=== PATIENT | male | born 1940 | race Caucasian/White ===

== ENCOUNTER 2019-09-20 08:16 | Outpatient (CLI) | payer MEDICARE, OTHER, SELFPAY ==
--- NOTE | 2019-09-20 08:25 | XR_ITS ---
WS: [id number] KUB, 09/20/2019 Clinical Data: EXTRINSIC URETERAL OBSTRUCTION Comparison: C-arm fluoroscopy of the abdomen, 06/04/2019 Findings: No abnormal intraabdominal masses are seen. There is a calcification overlying the inferior portion o f the left kidney. There is no dilatated small bowel or evidence of obstruction. The left ureteral catheter appears to extend from the kidney to the bladder. There are clips on both sides of the pelvis from surgery. There is a moderate amount of fecal material throughout the colon. 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 XR/XR KUB 56489 Impression: 1. Left ureteral stent appears to be in good position. 2. Calcification overlying the inferior pole left kidney may represent renal ca lcification.
== END 2019-09-20 08:17 | disposition home or self-care (01) ==
LOC: RAD 08:23
PROVIDERS: Family Provider Family Medicine; PCP Urology; Visit Provider Urology
DX: N13.5 Crossing vessel and stricture of ureter without hydronephrosis (principal); Z96.0 Presence of urogenital implants
CPT/HCPCS: 74018

== ENCOUNTER 2019-09-24 12:03 | Day surgery (SDC) | payer MEDICARE, OTHER, SELFPAY ==
[2019-09-21 15:35] VITALS: BMI 32.6
[2019-09-24] VITALS (7 sets, daily range): BP systolic 124–157; BP diastolic 62–95; PULSE 64–86; RESP 13–20; TEMP 36.2–36.9; O2SAT 96–99
--- NOTE | 2019-09-24 | SCC_ITS ---
Procedure Done: Cystoscopy exchange left ureteral stent 16.1 seconds of fluoroscopic guidance, for a cumulative dose of 7.32 mGy, was provided to Dr. Lloyd by the radiology department. C-arm images of the abdomen were saved for the patient's permanent record. [facility]
--- NOTE | 2019-09-24 | SC_ITS ---
WS: [id number] C-arm fluoroscopy view of left side of the abdomen, 09/24/2019 Clinical Data: LEFT SIDED STENT EXCHANGE Comparison: KUB, 09/20/2019 Findings: The new ureteral stent is curled within the left renal pelvis. SC/C-arm [place] for Urology Impression: Satisfactory replacement of left ureteral stent.
[2019-09-24] MEDS: sodium chloride 0.9% 1,000 ML 30 ML IV (12:18)
--- NOTE | 2019-09-24 12:24 | ANES.PREANE2 ---
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 Exam: Pre-Anes Outpt Exam: alert, oriented x 3, clear to auscultation bilaterally and regular rate & rhythm Airway: Submandibular: WNL Cervical ROM: WNL MP: 2 Dentition: False CV/HEM: Comments: 2 blocks without angina/LAMAR : Comments: prostate CA/ s/p stent s/p sx/chemo/XRT Metabolic: Metabolic: DM Comments: rx'd x 2y, normally 115-150 Musc/skel: Musc/skel: Lower Back Pain Anesthetic Plan: ASA status: 3 Anesthesia: General Meds/Allergies Current Medications: Current Medications Generic Name Dose Route Start Last Admin Trade Name Demarioq PRN Reason Stop Dose Admin Sodium Chloride 1,000 mls @ 30 ml s/hr 09/24/19 12:15 09/24/19 12:18 Sodium Chloride 0.9% IV 09/25/19 12:14 30 mls/hr .Q24H EBER Administration PFSH Anesthesia PFSH: Social History Smoking and tobacco status: smoker, details unknown smokeless tobacco Alcohol intake: never Adopted: No Caregiver/support person: No Lives independently: No Household members: spouse Marital status: Current occupational status: retired History of recent travel: No Data Anesthesia Cardiac Studies: No Data to Display
[2019-09-24 12:53] LABS: Glucose Point of Care 101 mg/dL (70-110)
--- NOTE | 2019-09-24 13:22 | PM.HPUD ---
H&P update H&P Update: DATE OF SURGERY/PROCEDURE: 09/24/19 DATE H&P PERFORMED: 09/20/19 CHANGES TO PREVIOUS DOCUMENTATION: None PREOP DIAGNOSIS: Chronic left ureteral stent PLANNED PROCEDURE: Operation Date: 09/24/19 13:30 Proposed Procedures p Cystoscopy 06001 N13.5(Not Applicable) - Jasper Lloyd MD s Ureteral Stent Exchange(Left) - Jasper Llody MD Full H&P Medications/Allergies: Current Medications: Current Medications Generic Name Dose Route Start Last Admin Trade Name Freq PRN Reason Stop Dose Admin Sodium Chloride 1,000 mls @ 30 ml s/hr 09/24/19 12:15 09/24/19 12:18 Sodium Chloride 0.9% IV 09/25/19 12:14 30 mls/hr .Q24H EBER Administration Perinent History: Medical/Surgical History: Medical History (Updated 09/20/19 @ 11:51 by Jasper Lloyd MD) Calcium stone of bladder Chronic cystitis Extrinsic ureteral obstruction Male stress incontinence Prostate cancer Family History: Family History (Updated 09/18/19 @ 08:27 by LAURY Samayoa) Mother , in her 70's CAD (coronary artery disease) Father , in his 80's No problems noted. Social History: Social History Smoking and tobacco status: smoker, details unknown smokeless tobacco Alcohol intake: never Adopted: No Caregiver/support person: No Lives independently: No Household members: spouse Marital status: Current occupational status: retired History of recent travel: No
--- NOTE | 2019-09-24 13:30 | PM.OP ---
Operative Report Date of procedure: September 24, 2019 Pre-op Diagnosis: Chronic left ureteral stent Post-op diagnosis: same Procedure Done: Cystoscopy exchange left ureteral stent Implants: Left ureteral stent: 8 Citizen [place] by 32 cm multilength double-pigtail without string Specimens removed/disposition: Left ureteral stent disposed Pathology: none sent Surgeon: Prema Anesthesia: General Estimated blood loss: Minimal Urine output: Not measured Complications: None Condition: stable Disposition: PACU Brief History: Mr. 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 The tumor invaded the right ureteral orifice and cause obstruction and he has been maintained for a significant period of time with an indwelling ureteral stent changed on a regular basis in addition to his systemic therapy. Back now for stent change. Procedure: After routine preoperative evaluation examination and obtaining of informed consent he was taken to the operating suite on 09/24/2019 where general anesthesia was administered without difficulty after appropriate timeout was performed, SCDs confirmed to be functioning, preoperative antibiotics administered, and beta-kofi protocol confirmed. Prepped and draped in usual sterile fashion in dorsolithotomy position pain careful attention to avoiding pressure points. 21 Citizen [place] cystoscope with 30 degree lens introduced into urethral meatus and advanced into the bladder under videoscopy. Bladder was systematically examined with some encrustation noted on the stent, chronic inflammatory changes of the bladder wall where the stent resided, but no other significant changes from previous exams. Flexible tip guidewire was advanced along the left ureteral stent up the left ureter and then the stent was grasped with grasping forceps and withdrawn under fluoroscopic monitoring. Stent was replaced with an 8 Citizen [place] by 32 cm multilength double-pigtail stent easily passed over the guidewire through the cystoscope into appropriate position as confirmed via fluoroscopy and cystoscopy. Bladder was drained and the procedure was completed. PLANS: 1. Follow-up in 3 months with KUB. Sooner for increasing symptoms.
--- NOTE | 2019-09-24 14:07 | SUR.PHASEI ---
1405- RECEIVED PATIENT IN PACU FROM OR [facility]IA [place]. RESP ARE EVEN AND NONLABORED. SIMPLE MASK APPLIED AT 6LPM, SAT 99%, ORAL AIRWAY IN PLACE. HE IS AROUSABLE BUT LETHARGIC. NO S/S PAIN OR NAUSEA 1408- ORAL AIRWAY OUT. SIMPLE MASK IN PLACE AT 6LPM, SAT 99%
== END 2019-09-24 15:00 | disposition home or self-care (01) ==
PROVIDERS: Family Provider Family Medicine; PCP Nurse Practitioner; Visit Provider Urology
PROC: 0TJB8ZZ Inspection of Bladder, Via Natural or Artificial Opening Endoscopic (ICD-10-PCS; CPT 52000; principal; 2019-09-24 13:10)
PROC: (CPT 52332; 2019-09-24 13:10)
DX: N20.1 Calculus of ureter (principal); Z82.49 Family history of ischemic heart disease and other diseases of the circulatory system; F17.290 Nicotine dependence, other tobacco product, uncomplicated; C61 Malignant neoplasm of prostate
CPT/HCPCS: 52332; 12345; 36416; 76000; 82962; C2625; J1580; J2001; J2405; J2704; J3010; J3490; J7030

== ENCOUNTER 2019-09-26 10:19 | Outpatient (CLI) | payer MEDICARE, OTHER, SELFPAY ==
[2019-09-26 11:18] LABS: Prostate Specific Antigen 3.31 ng/mL (0-4)
== END 2019-09-26 10:20 | disposition home or self-care (01) ==
LOC: ONCMED 10:19
PROVIDERS: Family Provider Family Medicine; PCP Nurse Practitioner; Visit Provider Internal Medicine Hematology & Oncology
DX: C61 Malignant neoplasm of prostate (principal)
CPT/HCPCS: 36415; 84153

== ENCOUNTER 2019-10-12 10:11 | Outpatient (CLI) | payer MEDICARE, OTHER, SELFPAY ==
[2019-10-12 11:23] LABS: Prostate Specific Antigen 3.61 ng/mL (0-4)
[2019-10-12 11:34] LABS: Alanine Aminotransferase 14 U/L (0-41); Albumin Level 4.3 g/dL (3.5-5.2); Alkaline Phosphatase 68 IU/L (40-130); Anion Gap 19.9 (5-19); Aspartate Amino Transferase 13 U/L (0-40); Blood Urea Nitrogen 22 mg/dL (8-23); Calcium 10.3 mg/dL (8.5-10.5); Carbon Dioxide 24 mmol/L (22-29); Chloride 99 mmol/L (98-107); Globulin 3.7 g/dL (1.3-4.6); Glucose 136 mg/dL (65-115); Potassium 3.9 mmol/L (3.5-5.1); Sodium 139 mmol/L (136-145); Total Bilirubin 0.3 mg/dL (0.15-1.2)
== END 2019-10-12 10:12 | disposition home or self-care (01) ==
LOC: ONCMED 10:12
PROVIDERS: Family Provider Family Medicine; PCP Nurse Practitioner; Visit Provider Internal Medicine Hematology & Oncology
DX: C61 Malignant neoplasm of prostate (principal)
CPT/HCPCS: 36415; 80053; 84153

== ENCOUNTER 2019-10-17 09:56 | Outpatient (CLI) | payer MEDICARE, OTHER, SELFPAY ==
[2019-10-17] MEDS: lidocaine 1% INJ 20 mL INJECTION (11:05)
[2019-10-17] MEDS: goserelin acetate 10.8 mg Implant IM (11:16)
--- NOTE | 2019-10-17 13:17 | ONC FU_ITS ---
Dr. Alcazar follow up note Patient: Alex Kauffman Unit #: [id number]: 1940 Dicatated By: Tom Alcazar M.D.Date of Visit:Oct 17, 2019 Onc Med Follow-up/Prog Note History of Present Illness: Mr. Kauffman is a 78-year-old gentleman with long-standing history of prostate cancer. Initially, he was diagnosed with prostate cancer in May 2000. At that time, his PSA was 9 and a biopsy showed 2+ 2/3+4/3+3 with the largest volume equal 3+4. Underwent radical retropubic prostatectomy in June 2000. He was followed with PSA postoperatively and during follow-up it was noted his PSA was increasing but slowly. Finally in 2010 it was felt he needed further treatment. He was treated with radiation therapy which he completed in March 2011. It showed good response with PSA down to 0.05. During follow-up in November 2012, his PSA gone up to 0.21; in May 2013 up to 0.35 and in November 2013 it was 0.93. In February 2015, he underwent cystoscopic examination found to have local recurrence. It was resected and confirmed to be poorly differentiated prostate cancer. At that time he was started on combined androgen blockade postop. His treatment was complicated by recurrent hematuria and burning micturition. Follow-up lab showed a gradual increase in his PSA level and from 07/06/2017 it was 2.5 earlier while on combined androgen blockade. On 12/21/2017, he underwent cystoscopy with transurethral resection of a bladder lesion, cystourethroscopy with placement of ureteral stent on left side and dilation of urethra. 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 Mr Kauffman has had persistent urine tract infection and recently finished course of Levaquin. Repeat urinalysis on 02/16/2018 showed persistent urine tract infection: leukoesterase positive and persistent RBCs and WBCs on microscopic evaluation. Mr Kauffman reported he did notice pus drops every time after he finish his urination. His case was discussed with Dr. Lloyd, urologist, and he was referred for possible cystoscopy to rule out postsurgical abscess or other source of infection- before we started chemotherapy. Mr Kauffman reported that he has seen Dr. Lloyd. Dr Lloyd replaced the urinary stent and did notice lots of urinary debris. Mr Kauffman was started on long-term antibiotics with Hiprex 1 g by mouth daily. He began his first dose of docetaxel on 03/14/2018. He was not given Neulasta as he did not have insurance approval at the time of chemotherapy. He did have significant neutropenia on day 8 with an ANC of 600. He did not have symptoms and gradually recovered. He did qualify for Neulasta administration with cycle 2 and Concluded his chemotherapy e.g. 6 doses on 06/27/2018 Went to [facility] on 09/07/2018 and as per patient his patient was started on Zytiga/prednisone for one year in addition to Zoladex every 3 months as scans done at [facility] showed excellent response to chemotherapy but persistent lung nodule and pelvic lesion and his PSA done there was around 1. We will obtain follow-up note from [facility] and review. Patient denies any fever chills denies any nausea or vomiting denies any pelvic pain, denies any dysuria or hematuria. On 09/21/2018 patient had left ureteral stent replacement. Patient went to [facility] for follow-up on 12/25/2018 and had choline C 11 scan done, when compared with one from 09/07/2018, showed increased choline uptake is again seen in the prostatectomy bed on the left and involving the posterior bladder base is essentially unchanged from the previous scan. The small lymph nodes with choline uptake seen on the previous scan are unchanged. The pulmonary infiltrate have decreased. No new sites of abnormal choline uptake are noted Tolerating ADT with Zoladex and Zytiga/prednisone well Patient went to [facility] for follow-up on 06/29/2019. He underwent PET/CT choline which showed likely tumor at the left of urethral vesicle junction has SUV of 4.5 compared to 3.4 on 12/25/2018. Nonspecific activity to the right of urethrovesical junction has SUV of 1.8 compared to 2.1 previously. Likely tumor involving left sided urinary bladder including the left ureterovesical junction has SUV of 6.2 compared to 6.6 previously. Likely metastatic activity in the proximal right external iliac lymph node has SUV of 2.6 versus 2.2 previously. Nonspecific activity along the right common iliac vessels and adjacent to lumbar degenerative changes as current SUV of 2.9 versus 2.1 previously and his PSA was 2.[address] Lewis recommended continue with Zoladex but discontinue Zytiga and taper off prednisone and initiate xtandi and repeat his PSA in 3 months and follow-up at [facility] in [address] PET scan and PSA . As per patient he was told if his disease continued to progress the next option would be chemotherapy. As far as his left pelvic pain is concern, which is under control and left nephrostomy tube was suggested rather than continuing with ureteral stent exchanges every couple of months. Came for follow-up, denies any specific complaints, no fever or chills, no nausea or vomiting, no hematuria, recently underwent left ureteral stent replacement and Dr. Lloyd is managing it. Patient said his pelvic pain is under control with current pain medication. And complaining of off and on night sweats otherwise tolerating ADT with Zoladex well and also tolerating xtandi well Medications: AZO Yeast Plus 1 Tablet Oral daily PRN, Hiprex 1 Tablet (of 1 G) Oral b.i.d., MetFORMIN HCl 1 (500 mg) Tablet Oral b.i.d., oxyCODONE-Acetaminophen 1 Tablet (of 5-325 mg) Oral q 4 to 6 hours PRN, predniSONE 1 Tablet (of 5 mg) Oral b.i.d., Vitamin C 1 Tablet (of 1 G) Oral daily, Zytiga 2 Tablet (of 500 mg) Oral daily Allergies: Cipro, Penicillins, and Sulfa Antibiotics. Review of Systems: Review of Systems is not available for this patient. Vital Signs: Performed on Oct 17, 2019 10:20 Height - 67.00 in Weight - 221.8 lbs (LOW) BSA - 2.11 sq.m BMI - 34.74 (HIGH) Temperature - 97.4 F (LOW) Pulse - 75 /min Respiration - 20 /min BP - 136/78 mm(hg) O2 Sat - 96 % Pain - 0 Performance Status: 0 - Fully active, able to carry on all predisease activities without restrictions. (ECOG) Physical Examination: ENMT - No oral exudates, ulcers, masses, thrush or mucositis. Oropharynx clear. Tongue normal, Respiratory - Lungs are clear to auscultation without rhonchi or wheezing, Cardiovascular - Regular rate and rhythm of heart without murmurs, gallops or rubs, Abdomen - Non-tender, non-distended, Good bowel sounds. No guarding or rebound tenderness. No pulsatile masses, Extremities - no edema. Lab/Imaging: Test performed on Oct 12, 2019 10:20 Sodium 139 mmol/L Potassium 3.9 mmol/L Chloride 99 mmol/L CO2 24 mmol/L Anion Gap 19.9 BUN 22 mg/dL Creatinine 0.9 mg/dL Cr Clearance (Est) 94.7900 mL/min Glucose 136 mg/dL Calcium 10.3 mg/dL Protein, Total 8.0 g/dL Albumin 4.3 g/dL Globulin 3.7 g/dL Bilirubin, Total 0.3 mg/dL ALT (SGPT) 14 U/L AST (SGOT) 13 U/L Alkaline Phosphatase 68 IU/L PSA 3.61 ng/mL Test performed on Apr 30, 2019 09:22 Bilirubin, Direct 0.2 mg/dL Impression: Recurrent prostate cancer status post cystoscopy and excision in February 2015 followed by combined androgen blockade with Zoladex and Casodex. Now with gradual increasing PSA , While on combined androgen blockade Initially he was diagnosed prostate cancer in 1999- at that time he underwent retropubic radical prostatectomy. Status post radiation therapy in 2010 for increasing PSA and lymphadenopathy. Hematuria/dysuria since February 2015. CT scan of abdomen pelvis done on 03/02/2018 showed soft tissue mass measuring 2.2 cm x 3.2 x 2.9 in the expected location of the prostate inseparable from the urinary bladder floor urinary bladder wall is diffusely thickened and there is a soft tissue attenuation between the soft tissue mass in the anterior infra levator rectal wall, rectal lesion not excluded Seen by Dr. Ewdards on 10/24/2017 and his impression was changes in the rectum are probably due to prostate invasion rather than primary rectal lesion. 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 Mr Kauffman was seen by Dr Lloyd for persistent UTI symptoms post op and was placed on education and training manager antibiotics. His symptoms resolved and he began recommended chemotherapy with docetaxel on 03/14/2018. Mr. Kauffman has tolerated the chemotherapy relatively well. He did have chemotherapy-induced neutropenia on day 8 of cycle 1. His initial ANC at time of treatment on 03/14/2018 was 13,300 on day 8 his ANC was 600[address] PET scan done on 05/06/2018 showed no evidence for recurrent or residual malignancy., Tiny scattered pelvic nodes are radiographically benign and FDG negative, no findings to indicate osseous metastatic disease and left-sided hydronephrosis is present and a ureteral catheter is in place. PSA checked on 05/15/2018 showed 1.81 compared to 6.49 on 03/14/2018 when chemotherapy with Taxotere was started And concluded his chemotherapy with Taxotere e.g. 6 doses on 06/27/2018 Status post left ureteral stent placement on 05/22/2018 Again replaced on 09/21/2018 Went to [facility] on 09/07/2018,Choline C 11 scan done on 09/07/2018 showed large choline avid recurrence in the prostatectomy bed involving the posterior bladder base has improved since prior exam, however suspicious new small focus of choline avid disease along the right posterior bladder wall. New choline avid node metastatic disease including a right supraclavicular node. And increasing pulmonary infiltrate and/or atelectasis in the posterior lower lobes with reactive choline activity. so he was started on Zytiga/prednisone for one year along with an 3 monthly Zoladex. Went to [facility] on 12/25/2018 and had choline C 11 scan done on same date showed when compared with choline scan done on 09/07/2018, increased choline uptake is seen again in the prostatectomy bed on the left and involving the posterior bladder base is essentially unchanged from the previous scan. The small lymph nodes with choline uptake seen on the previous scans are unchanged the pulmonary infiltrates have decreased. No new sites of abnormal choline uptake are noted. Plan: Discussed with patient regarding CMP within normal limit PSA 3.61 compared to 3.31 on 09/26/2019 and 2.50 on 07/11/2019 Clinically, patient doing well with no signs symptoms just to of recurrence of disease but his follow-up PSA is gradually increasing patient started on xtandi in July 2019 and last dose of Zoladex was given on 07/17/2019. At this point we'll proceed with next dose of Zoladex 10.8 mg today and then patient return to clinic in 3 months with CBC CMP and PSA patient has return appointment with [facility], and we will follow their suggestions/recommendations regarding progressive PSA. Patient his we will confirm follow-up appointment with [facility]. And also give him prescription for Percocet, he will take 1-2 tablets 4-6 hours as needed for pelvic pain probably due to ureteral stent. Signed By: Tom Alcazar M.D. <<Signature on File>>
== END 2019-10-17 09:57 | disposition home or self-care (01) ==
LOC: ONCMED 09:57
PROVIDERS: Family Provider Family Medicine; PCP Nurse Practitioner; Visit Provider Internal Medicine Hematology & Oncology
DX: C61 Malignant neoplasm of prostate (principal); R97.21 Rising PSA following treatment for malignant neoplasm of prostate; Z79.899 Other long term (current) drug therapy; Z79.818 Long term (current) use of other agents affecting estrogen receptors and estrogen levels; Z79.891 Long term (current) use of opiate analgesic; Z79.52 Long term (current) use of systemic steroids; Z87.440 Personal history of urinary (tract) infections; Z92.21 Personal history of antineoplastic chemotherapy; Z96.0 Presence of urogenital implants; Z92.3 Personal history of irradiation; Z90.79 Acquired absence of other genital organ(s)
CPT/HCPCS: 96372; 96402; 99214; J2001; J9202

== ENCOUNTER 2019-12-04 09:25 | Outpatient (CLI) | payer MEDICARE, OTHER, SELFPAY | END 2019-12-04 09:26 | disposition home or self-care (01) | LOC: ONCMED 09:26 | PROVIDERS: Family Provider Family Medicine; PCP Nurse Practitioner; Visit Provider Internal Medicine Hematology & Oncology | DX: Z01.89 Encounter for other specified special examinations (principal) | CPT/HCPCS: 36415 ==

== ENCOUNTER 2019-12-20 08:24 | Outpatient (CLI) | payer MEDICARE, OTHER, SELFPAY ==
--- NOTE | 2019-12-20 08:30 | XR_ITS ---
WS: [id number] XR KUB [id number] REASON FOR EXAM: ureteral obstruction FINDINGS: A stent is well placed in the left kidney extends down to the bladder. Adjacent to the sten t is a prominent calcified densities suggesting a ureteral calculus. There is degenerate changes throughout the lumbar spine. XR/XR KUB 99117 IMPRESSION: Left ureteral stent appears to be in good position. The calcified density in the left kidney similar to the previous exam.
== END 2019-12-20 08:25 | disposition home or self-care (01) ==
LOC: RAD 08:29
PROVIDERS: Family Provider Family Medicine; PCP Nurse Practitioner; Visit Provider Urology
DX: N13.5 Crossing vessel and stricture of ureter without hydronephrosis (principal); Z96.0 Presence of urogenital implants
CPT/HCPCS: 74018

== ENCOUNTER 2020-01-04 09:28 | Outpatient (CLI) | payer MEDICARE, OTHER, SELFPAY ==
--- NOTE | 2020-01-04 09:15 | XRR_ITS ---
PROCEDURE INFORMATION: Exam: XR Abdomen, 1 View Exam date and time: 01/04/2020 9:31 AM Age: 79 years old Clinical indication: Condition or disease; Kidney or ureter condition; Calculus (stone) in kidney; Prior surgery; Surgery type: Stent; Additional info: Ureteral obstruction f/u TECHNIQUE: Imaging protocol: XR of the abdomen. Views: Frontal supine view of the abdomen. 1 View. COMPARISON: CR XR KUB [id number] 12/20/2019 8:43 AM FINDINGS: Gastrointestinal tract: bowel gas pattern is nonspecific. Air filled large bowel including distal rectal gas. Scattered loops of air filled small bowel none of which are dilated. Large amount of stool throughout the large bowel. Intraperitoneal space: Extensive operative changes in the pelvis. Organs: Double-J ureteric stent on the left with the proximal pigtail formed within the renal pelvis and the distal pigtail within the urinary bladder. 6 mm calculus lower pole left kidney Bones/joints: Degenerative changes within the hips: Moderate Degenerative changes within the visualized portions of the caudal aspect of the lumbar spine. Moderate to severe XR/XR KUB [id number] IMPRESSION: . Bowel gas pattern is nonspecific. Air filled large bowel including distal rectal gas. Large amount of stool throughout the large bowel.
== END 2020-01-04 09:29 | disposition home or self-care (01) ==
LOC: RAD 09:29
PROVIDERS: PCP Nurse Practitioner; Visit Provider Urology
DX: N13.5 Crossing vessel and stricture of ureter without hydronephrosis (principal)
CPT/HCPCS: 74018

== ENCOUNTER 2020-01-10 12:22 | Day surgery (SDC) | payer MEDICARE, OTHER, SELFPAY ==
[2020-01-09 13:09] VITALS: BMI 32.8
[2020-01-10] VITALS (7 sets, daily range): BP systolic 136–174; BP diastolic 76–87; PULSE 53–77; RESP 16–20; TEMP 36.4–36.7; O2SAT 94–97
--- NOTE | 2020-01-10 | SCC_ITS ---
Procedure Done: Cystoscopy, exchange left ureteral stent 36.8 seconds of fluoroscopic guidance, for a cumulative dose of 14.72 mGy, was provided to Dr. Lloyd by the radiology department. C-arm images of the abdomen were saved for the patient's permanent record. [facility]
[2020-01-10] MEDS: sodium chloride 0.9% 1,000 ML 30 ML IV (13:06)
[2020-01-10 13:15] LABS: Glucose Point of Care 111 mg/dL (70-110)
--- NOTE | 2020-01-10 14:50 | ANES.PREANE2 ---
Pre-Anesthetic Assessment Pre-Anesthetic Assessment: Height/Weight: Height 1.73 m Weight 97.976 kg Temp Pulse Resp BP Pulse Ox 97.5 F L 77 18 174/87 97 01/10/20 12:59 01/10/20 12:59 01/10/20 12:59 01/10/20 12:59 01/10/20 12:59 Preop Diagnosis: chronic ureteral stent Proposed Procedure: Operation Date: 01/10/20 15:10 Proposed Procedures p Cystoscopy 67855 N13.5(Not Applicable) - Jasper Lloyd MD s Ureteral Stent Exchange(Left) - Jasper Lloyd MD Last intake: Intake Last Liquid Date 01/10/20 Last Liquid Time 07:30 Last Solid Date 01/10/20 Last Solid Time 20:30 Social: Social History: Tobacco (quit 1999) and No alcohol Exam: Pre-Anes Outpt Exam: alert, oriented x 3, clear to auscultation bilaterally and regular rate & rhythm Airway: Submandibular: WNL Cervical ROM: WNL MP: 1 Dentition: False (upper) and Other (poor) History/ROS: No significant history except as noted Pulmonary: Pulmonary: LAMAR CV/HEM: CV/HEM: None reported : Comments: prostrate CA Hepatic: Hepatic: None reported GI: GI: None reported Metabolic: Metabolic: DM Musc/skel: Musc/skel: None reported Neuropsych: Neuropsych: None reported Anesthetic Plan: ASA status: 3 Anesthesia: Anesthesia Evaluation, General and MAC Risk of > 500 ml blood loss (7ml/kg in children): No Meds/Allergies Current Medications: Current Medications Generic Name Dose Route Start Last Admin Trade Name Freq PRN Reason Stop Dose Admin Sodium Chloride 1,000 mls @ 30 ml s/hr 01/10/20 12:45 01/10/20 13:06 Sodium Chloride 0.9% IV 01/11/20 12:44 30 mls/hr .Q24H EBER Administration PFSH Anesthesia PFSH: Medical History Chronic cystitis Extrinsic ureteral obstruction Male stress incontinence Prostate cancer Surgical History History of radical retropubic prostatectomy Hx of transurethral destruction of bladder lesion S/P right knee surgery Status post placement of ureteral stent Family History Mother , in her 70's CAD (coronary artery disease) Father , in his 80's No problems noted. Social History Smoking and tobacco status: smoker, details unknown smokeless tobacco Alcohol intake: never Adopted: No Caregiver/support person: No Lives independently: No Household members: spouse Marital status: Current occupational status: retired History of recent travel: No Data Anesthesia Other Labs: Laboratory Results - last 48 hr 01/10/20 13:12 POC Glucose 111 Cardiac Studies: No Data to Display
--- NOTE | 2020-01-10 15:37 | SC_ITS ---
WS: [id number] C-ARM RADIOGRAPHS ABDOMEN; 2 IMAGES HISTORY: stent placement COMPARISON: None available. Intraoperative imaging during LEFT ureteral stent placement. SC/C-arm [place] for Urology IMPRESSION: Intraoperative imaging for LEFT ureteral stent placement.
--- NOTE | 2020-01-10 15:52 | P.OP_ITS ---
Operative Report Date of procedure: January 10, 2020 Pre-op Diagnosis: chronic LEFT ureteral stent Post-op diagnosis: same Procedure Done: Cystoscopy, exchange left ureteral stent Pathology: none sent Surgeon: Prema Anesthesia: General Estimated blood loss: Minimal Urine output: Not measured Complications: None Condition: stable Disposition: PACU Brief History: Mr. 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 Procedure: After routine preoperative evaluation examination and obtaining of informed consent he was taken to the operating suite on 01/10/2020 where general anesthesia was administered without difficulty after appropriate timeout was performed, SCDs confirmed to be functioning, preoperative antibiotics administered, beta-[id number] protocol confirmed. Prepped and draped in the usual sterile fashion in dorsolithotomy position pain careful attention to avoiding pressure points. 21 Belgian cystoscope with 30 degree lens was introduced to urethral meatus and advanced into the bladder under videoscopy. The bladder was systematically examined. In general there appeared to be more abnormal tissue around the ureteral orifice and bladder neck than previously seen. This may be promotional representative of persistent local regrowth. This tissue was more friable. A guidewire was advanced up the left ureter next to the stent and the stent was removed after confirmation of the wire curling in the area of the renal pelvis. An 8 Belgian by 26 cm stent was then passed without difficulty The bladder was drained and the procedure completed. Tolerated the procedure well without complications and was awakened in the operating room and returned to the recovery in stable condition. PLANS: Follow-up in about 3 months for scheduling of stent change. Consider percutaneous tube diversion of urine if further progression of local regrowth.
== END 2020-01-10 17:31 | disposition home or self-care (01) ==
PROVIDERS: PCP Nurse Practitioner; Visit Provider Urology
PROC: 0TJB8ZZ Inspection of Bladder, Via Natural or Artificial Opening Endoscopic (ICD-10-PCS; CPT 52000; principal; 2020-01-10 15:10)
PROC: (CPT 52332; 2020-01-10 15:10)
DX: Z46.6 Encounter for fitting and adjustment of urinary device (principal); Z85.46 Personal history of malignant neoplasm of prostate; E11.9 Type 2 diabetes mellitus without complications
CPT/HCPCS: 52332; 12345; 36416; 76000; 82962; C2625; J1580; J2001; J2405; J2704; J3010; J3490; J7030

== ENCOUNTER 2020-01-11 20:33 | Inpatient (IN) | payer MEDICARE, OTHER, SELFPAY ==
[2020-01-11 20:43] VITALS: BP 139/80; PULSE 100; RESP 24; TEMP 38.1; O2SAT 92; BMI 34.4
--- NOTE | 2020-01-11 20:48 | XRR_ITS ---
PROCEDURE INFORMATION: Exam: XR Chest, 1 View Exam date and time: 01/11/2020 9:19 PM Age: 79 years old Clinical indication: Patient HX: Kidney stent replaced the day before, now has fever TECHNIQUE: Imaging protocol: XR of the chest Views: 1 view. COMPARISON: CR Chest 1 [place] [id number] 01/29/2019 10:10 AM FINDINGS: Lungs: Unremarkable. No consolidation. Pleural space: Unremarkable. No pleural effusion. No pneumothorax. Heart/Mediastinum: Stable heart size. Vasculature: Calcified thoracic aorta. Bones/joints: Degenerative change of the spine. XR/XR chest 1V portable [id number] IMPRESSION: 1. Stable chest without acute process.
--- NOTE | 2020-01-11 20:49 | ED_ITS ---
HPI - Fever General: Chief Complaint: Fever Stated Complaint: Fever Time Seen by Provider: 01/11/20 20:43 Source: patient Mode of arrival: ambulatory Limitations: no limitations History of Present Illness: HPI Narrative: 79-year-old male has a long history of urinary tract infections had a cystoscope done yesterday for prostate cancer. Patient states he had a temperature today 101 at home and felt generally weak. Patient's blood pressures been normal. He denies any cough or pain anywhere. He denies any abdominal pain. He has had no vomiting or diarrhea. MD elicited complaint: fever Onset (ago): hour(s) Associated symptoms: Deny abdominal pain, chest pain, diarrhea, dysuria, headache(s), nausea or vomiting Review of Systems Const: Reports: fever(s) Eyes: Denies: blurry vision or eye discomfort ENMT: Denies: throat pain or dental pain Card: Denies: chest pain Resp: Denies: dyspnea GI: Denies: abdominal pain, nausea, vomiting or diarrhea : Denies: dysuria Musc: Denies: neck pain or back pain Skin/Breast: Denies: rash Neuro: Denies: headache(s) Psych: Denies: depression Joshua/Lymph: Denies: easy bruising All/Imm: Denies: urticaria PFSH ED PFSH: Medical History Chronic cystitis Extrinsic ureteral obstruction Male stress incontinence Prostate cancer Surgical History History of radical retropubic prostatectomy Hx of transurethral destruction of bladder lesion S/P right knee surgery Status post placement of ureteral stent Family History Mother , in her 70's CAD (coronary artery disease) Father , in his 80's No problems noted. Social History Smoking and tobacco status: never smoked Alcohol intake: never Adopted: No Caregiver/support person: No Lives independently: No Household members: spouse Marital status: Current occupational status: retired History of recent travel: No Physical Exam Const: COMMON NORMALS: no acute distress, patient oriented x3 and healthy appearing HENMT: COMMON NORMALS: normocephalic and atraumatic HEAD & SCALP: normocephalic and atraumatic Eye: COMMON NORMALS: Equal, round and reactive pupils present and EOMs intact bilaterally PUPIL: Yes Equal, round and reactive pupils present Neck/C-Spine: COMMON NORMALS: full ROM and supple Chest: COMMONS NORMALS: normal inspection of the chest and normal palpation of entire chest wall Resp: COMMON NORMALS: normal respiratory effort, No retractions, No use of accessory muscles and clear to auscultation bilaterally AUSCULTATION: clear to auscultation bilaterally Cardio: COMMON NORMALS: regular rate, regular rhythm and No murmurs present (Cardio) RATE: regular rate RHYTHM: regular rhythm GI: COMMON NORMALS: Normal to inspection, nondistended, normoactive bowel sounds present, Soft to palpation, non-tender and no masses PALPATION: Yes Soft to palpation Extremity: COMMON NORMALS: normal to inspection and full ROM Neuro: COMMON NORMALS: patient oriented x3, moves all extremities and no focal motor deficits Psych: COMMON NORMALS: mental status grossly normal, Normal thought process present and cooperative THOUGHT PROCESS: Normal thought process present Skin: COMMON NORMALS: no rashes or lesions noted and no wounds GENERAL SKIN EXAM: no rashes or lesions noted Course Vital Signs: Vital signs: Vital Signs Temperature 100.5 F H 01/11/20 20:43 Pulse Rate 84 01/11/20 22:00 Respiratory Rate 18 01/11/20 22:00 Blood Pressure 113/61 01/11/20 22:00 Pulse Oximetry 93 01/11/20 22:00 MDM - Fever MDM Narrative: Medical decision making narrative: Presents with fever and elevated white count concerning for sepsis. Patient does have a urinary tract infection and has recurrent UTIs. Will start patient on Rocephin I spoke to hospitalist and will admit. Patient has been stable while in the ER. Lab Data: Labs: Lab Results 01/11/20 01/11/20 01/11/20 Range/Units 20:55 20:55 20:55 WBC 16.0 H (4.0-10.0) 10^3/ uL RBC 4.49 (4.1-5.3) 10^6/u L Hgb 12.8 (11.7-16.6) g/dL Hct 40.0 L (42.0-52.0) % MCV 89.1 (80-94) fL MCH 28.5 (28.0-34.0) pg MCHC 32.0 (30.0-36.0) g/dL RDW 15.8 H (12.1-15.1) % Plt Count 244 (130-400) 10^3/c mm MPV 9.6 (7.4-10.4) fL Neut % (Auto) 76.7 % Lymph % (Auto) 11.4 % Wright % (Auto) 11.4 % Eos % (Auto) 0.0 % Baso % (Auto) 0.2 % Neut # (Auto) 12.2 H (1.8-7.7) 10^3/u L Lymph # (Auto) 1.8 (0.8-4.8) 10^3/u L Wright # (Auto) 1.8 H (0.2-0.9) 10^3/u L Eos # (Auto) 0.0 (0.0-0.8) 10^3/u L Baso # (Auto) 0.0 (0.0-0.1) 10^3/u L Nucleated RBC % (a uto) 0 % Nucleated RBCs # 0.0 /100WBC PT 14.50 H (10.5-13.3) SECO NDS INR 1.09 (0.8-1.2) Sodium 133 L (136-145) mmol/L Potassium 3.7 (3.5-5.1) mmol/L Chloride 98 (98-107) mmol/L Carbon Dioxide 19 L (22-29) mmol/L Anion Gap 19.7 H (5-19) BUN 20 (8-23) mg/dL Creatinine 1.0 (0.7-1.2) mg/dL Glucose 163 H (65-115) mg/dL Calculated Osmolal ity 276 L (285-295) mOsm/k g Lactate (0.5-2.2) mmol/L Calcium 8.9 (8.5-10.5) mg/dL Total Bilirubin 0.6 (0.15-1.2) mg/dL AST 16 (0-40) U/L ALT 15 (0-41) U/L Alkaline Phosphata se 58 (40-130) IU/L Total Protein 7.0 (6.6-8.7) g/dL Albumin 4.0 (3.5-5.2) g/dL Globulin 3.0 (1.3-4.6) g/dL Urine Color (Yellow) Urine Appearance (CLEAR) Urine pH (5-7) Ur Specific Gravit y (1.005-1.030) Urine Protein (Negative) Urine Glucose (UA) (Normal) Urine Ketones (Negative) Urine Blood (Negative) Urine Nitrate (Negative) Urine Bilirubin (NEGATIVE) Urine Urobilinogen (Negative) mg/dL Ur Leukocyte Chayito ase (Negative) Urine RBC (0-2) /hpf Urine WBC (0-5) /hpf Ur Squamous Epith Cells (0-5) Amorphous Sediment Urine Bacteria (NONE) 01/11/20 01/11/20 Range/Units 20:55 22:15 WBC (4.0-10.0) 10^3/ uL RBC (4.1-5.3) 10^6/u L Hgb (11.7-16.6) g/dL Hct (42.0-52.0) % MCV (80-94) fL MCH (28.0-34.0) pg MCHC (30.0-36.0) g/dL RDW (12.1-15.1) % Plt Count (130-400) 10^3/c mm MPV (7.4-10.4) fL Neut % (Auto) % Lymph % (Auto) % Wright % (Auto) % Eos % (Auto) % Baso % (Auto) % Neut # (Auto) (1.8-7.7) 10^3/u L Lymph # (Auto) (0.8-4.8) 10^3/u L Wright # (Auto) (0.2-0.9) 10^3/u L Eos # (Auto) (0.0-0.8) 10^3/u L Baso # (Auto) (0.0-0.1) 10^3/u L Nucleated RBC % (a uto) % Nucleated RBCs # /100WBC PT (10.5-13.3) SECO NDS INR (0.8-1.2) Sodium (136-145) mmol/L Potassium (3.5-5.1) mmol/L Chloride (98-107) mmol/L Carbon Dioxide (22-29) mmol/L Anion Gap (5-19) BUN (8-23) mg/dL Creatinine (0.7-1.2) mg/dL Glucose (65-115) mg/dL Calculated Osmolal ity (285-295) mOsm/k g Lactate 1.9 (0.5-2.2) mmol/L Calcium (8.5-10.5) mg/dL Total Bilirubin (0.15-1.2) mg/dL AST (0-40) U/L ALT (0-41) U/L Alkaline Phosphata se (40-130) IU/L Total Protein (6.6-8.7) g/dL Albumin (3.5-5.2) g/dL Globulin (1.3-4.6) g/dL Urine Color Yellow (Yellow) Urine Appearance Cloudy (CLEAR) Urine pH 5 (5-7) Ur Specific Gravit y 1.015 (1.005-1.030) Urine Protein 3+ H (Negative) Urine Glucose (UA) Norm (Normal) Urine Ketones 1+ H (Negative) Urine Blood 3+ H (Negative) Urine Nitrate Negative (Negative) Urine Bilirubin Neg (NEGATIVE) Urine Urobilinogen Norm (Negative) mg/dL Ur Leukocyte Chayito ase 2+ H (Negative) Urine RBC Too numerous to c nt H (0-2) /hpf Urine WBC Too numerous to c nt H (0-5) /hpf Ur Squamous Epith Cells 0-4 H (0-5) Amorphous Sediment 2+ Urine Bacteria 2+ H (NONE) Imaging Data^: CXR: My impression: No acute abnormality Discharge Plan Discharge Patient Disposition: Admitted As Inpatient Clinical Impression: Sepsis Qualifiers: Sepsis type: sepsis due to unspecified organism Sepsis acute organ dysfunction status: without acute organ dysfunction Qualified Code(s): A41.9 - Sepsis, unspecified organism Acute cystitis Qualifiers: Hematuria presence: without hematuria Qualified Code(s): N30.00 - Acute cystitis without hematuria Condition: Stable Referrals: Roxann Masters COMMODITIES CLERK [Primary Care Provider] - Coding Level of Care Code 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
[2020-01-11 21:01] LABS: Basophils % 0.2 %; Hemoglobin 12.8 g/dL (11.7-16.6); Lymphocytes # 1.8 10^3/uL (0.8-4.8); Lymphocytes % 11.4 %; Mean Corpuscular Hemoglobin 28.5 pg (28.0-34.0); Mean Corpuscular Volume 89.1 fL (80-94); Mean Platelet Volume 9.6 fL (7.4-10.4); Monocytes # 1.8 10^3/uL (0.2-0.9); Monocytes % 11.4 %; Neutrophils # 12.2 10^3/uL (1.8-7.7); Neutrophils % 76.7 %; Nucleated Red Blood Cells % 0 %; Platelet Count 244 10^3/cmm (130-400); Red Blood Count 4.49 10^6/uL (4.1-5.3); Red Cell Distribution Width 15.8 % (12.1-15.1)
[2020-01-11 21:09] LABS: INR 1.09 (0.8-1.2)
[2020-01-11 21:15] LABS: Alanine Aminotransferase 15 U/L (0-41); Alkaline Phosphatase 58 IU/L (40-130); Anion Gap 19.7 (5-19); Aspartate Amino Transferase 16 U/L (0-40); Blood Urea Nitrogen 20 mg/dL (8-23); Calcium 8.9 mg/dL (8.5-10.5); Carbon Dioxide 19 mmol/L (22-29); Chloride 98 mmol/L (98-107); Creatinine Clr Calc Pharmacy 68.5238; Glucose 163 mg/dL (65-115); Lactate (Lactic Acid level) 1.9 mmol/L (0.5-2.2); Osmolality Calculated 276 mOsm/kg (285-295); Potassium 3.7 mmol/L (3.5-5.1); Sodium 133 mmol/L (136-145); Total Bilirubin 0.6 mg/dL (0.15-1.2)
[2020-01-11] MEDS: acetaminophen 325 mg Tablet 650 MG PO (21:18)
[2020-01-11] MEDS: sodium chloride 0.9% 1,000 ML 999 ML IV (21:46)
[2020-01-11 21:49] VITALS: BP 130/63; PULSE 88; RESP 91; O2SAT 91
[2020-01-11 22:00] VITALS: BP 113/61; PULSE 84; RESP 18; O2SAT 93
[2020-01-11 22:35] LABS: Add Urine Microscopic? YES; Bilirubin Urine Neg (NEGATIVE); Blood Urine 3+ (Negative); Glucose Urine UA Norm (Normal); Ketones Urine 1+ (Negative); Leukocyte Esterase Urine 2+ (Negative); Nitrate Urine Negative (Negative); Protein Urine 3+ (Negative); Specific Gravity, Urine 1.015 (1.005-1.030); Urine Appearance Cloudy (CLEAR); Urine Color Yellow (Yellow); Urobilinogen Urine Norm (Negative); pH Urine 5 (5-7)
[2020-01-11 22:36] LABS: RBC Urine TOO NUMEROUS TO CNT /hpf (0-2); WBC Urine TOO NUMEROUS TO CNT /hpf (0-5)
[2020-01-11 22:37] LABS: Bacteria Urine 2+; Squamous Epithelial Cell Urine 0-4 (0-5)
[2020-01-11 22:38] LABS: Add Urine Culture? No; Amorphous Sediment Urine 2+
--- NOTE | 2020-01-11 22:50 | P.HP_ITS ---
Providers/Chief Complaint Primary Care Provider: Roxann Masters APN Chief Complaint: Septic symptoms History of Present Illness Alex Kauffman is a 79 year old male who carries diagnosis of locally invasive prostate cancer invading lymph nodes without any bony metastases, requiring left ureteral stent placement every 3 to 6 months, follows up with Dr. Lloyd recently had stent replacement yesterday coming in for chief complaint of fever. Patient is stating that mostly after stent replacement his symptoms resolved and he feels better but since replacement of the stent he has been feeling worse, he spiked fever at home, T-max axillary 102, he has had couple of episodes of vomiting as well. He has history of chronic incontinence, no active urinary dysuria. No neck rigidity, no diarrhea, cough, sick contact exposure, neck stiffness or shortness of breath. He follows up with Dr. Alcazar, currently awaiting MSI and BRCA gene studies. Recent PSA level less than 4. Diagnostics in the ER revealed sepsis with fever, tachycardia and leukocytosis He was given ceftriaxone and septic bolus Loredo cath was placed which is draining clear yellow urine Review of Systems Const: Reports: fever(s), chills, body aches, fatigue and malaise; Denies: change in appetite Eyes: Denies: change in vision ENMT: Denies: throat pain Card: Denies: chest pain Resp: Denies: dyspnea GI: Reports: nausea, vomiting and heartburn; Denies: abdominal pain, diarrhea or constipation : Reports: flank pain, urinary frequency, urinary urgency and change in urine stream; Denies: dysuria Musc: Denies: neck pain or back pain Skin/Breast: Denies: rash Neuro: Denies: headache(s) Psych: Denies: anxiety Endo: Denies: polyuria Joshua/Lymph: Denies: easy bruising All/Imm: Denies: urticaria Medications/Allergies Home Medications Medication Instructions Recorded Confirmed Last Taken Type ascorbic acid (vitamin C) 1,000 mg 1 gm PO BID tab 09/20/19 01/11/20 01/09/20 History tablet enzalutamide 40 mg capsule 160 mg PO DAILY cap 09/20/19 01/11/20 01/09/20 History metformin 500 mg tablet 500 mg PO DAILY 09/20/19 01/11/20 01/09/20 History methenamine mandelate 1 gram tablet 1 gm PO BID #60 tab 11/08/19 01/11/20 01/09/20 Rx famciclovir 500 mg PO BID 01/11/20 01/11/20 Unknown History Allergies Allergy/AdvReac Type Severity Reaction Status Date / Time ciprofloxacin Allergy Unknown Verified 01/04/20 10:35 Penicillins Allergy ALGY-Rash Verified 01/04/20 10:35 Sulfa (Sulfonamide Allergy Unknown Verified 01/04/20 10:35 Antibiotics) sulfamethoxazole Allergy Unknown Verified 01/04/20 10:35 [From Bactrim] trimethoprim [From Bactrim] Allergy Unknown Verified 01/04/20 10:35 PFSH Acute PFSH: Medical History Chronic cystitis Extrinsic ureteral obstruction Male stress incontinence Prostate cancer Surgical History History of radical retropubic prostatectomy Hx of transurethral destruction of bladder lesion S/P right knee surgery Status post placement of ureteral stent Family History Mother , in her 70's CAD (coronary artery disease) Father , in his 80's No problems noted. Social History Smoking and tobacco status: never smoked Alcohol intake: never Adopted: No Caregiver/support person: No Lives independently: No Household members: spouse Marital status: Current occupational status: retired History of recent travel: No Vitals/I&O/Wt Last Vital Signs Temp 100.5 F H 01/11/20 20:43 Pulse 84 01/11/20 22:00 Resp 18 01/11/20 22:00 BP 113/61 01/11/20 22:00 Pulse Ox 93 01/11/20 22:00 Weight last 48 hrs Weight 99.79 kg Physical Exam Narrative: EXAM NARRATIVE: Head to toe examination Pleasant elderly gentleman Awake alert oriented x3, GCS 15 EOMI, PERRLA Skin does not show any sign of skin gangrene or ulcer S1, S2 no signs of heart failure Abdomen soft, nontender no CVA tenderness Lungs are clear to auscultation Appropriate mood and affect Loredo catheter draining clear yellow urine Nasal cannula was removed during my interview, he was saturating well on room air Heart rate in 70s, systolic blood pressure 130s At the bedside ceftriaxone and normal saline running Pertinent negatives: No signs of septic encephalopathy No CVA tenderness Data : 01/11/20 20:55 01/11/20 20:55 Micro: Microbiology 01/11/20 21:10 Blood Culture - Preliminary Blood SPECIMEN COLLECTED 01/11/20 20:55 Blood Culture - Preliminary Blood SPECIMEN COLLECTED A&P Assessment and plan (1) Sepsis: Status: Acute Qualifiers: Sepsis acute organ dysfunction status: without acute organ dysfunction Sepsis type: sepsis due to unspecified organism Qualified Code(s): A41.9 - Sepsis, unspecified organism (2) Acute cystitis: Status: Acute Qualifiers: Hematuria presence: without hematuria Qualified Code(s): N30.00 - Acute cystitis without hematuria (3) Prostate cancer: Status: Acute Additional A&P Information Sepsis due to cystitis Recently had stent replacement yesterday by Dr. Lloyd Normal saline and ceftriaxone for now, blood culture and urine culture obtained Sepsis criteria met with fever, leukocytosis, No active septic encephalopathy, no CVA tenderness, will obtain CT abdomen Locally invasive prostate cancer Invading lymph node No bony metastases Follows up with Dr. 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
[2020-01-11] MEDS: cefTRIAXone 1,000 MG in sodium chloride 0.9% (plus) 50 ML 100 MG IV (23:00)
[2020-01-11 23:04] VITALS: BP 126/67; PULSE 73; RESP 17; O2SAT 94
--- NOTE | 2020-01-11 23:19 | PC.NURSE ---
care and report given to rama LOVE
--- NOTE | 2020-01-11 23:40 | CTR_ITS ---
PROCEDURE INFORMATION: Exam: CT Abdomen And Pelvis Without And With Contrast Exam date and time: 01/11/2020 11:41 PM Age: 79 years old Clinical indication: Fever and other: Pyelonephritis; Prior surgery; Surgery date: Post-operative (0-2 days); Surgery type: Stent replaced in lt kidney yesterday TECHNIQUE: Imaging protocol: Computed tomography of the abdomen and pelvis without and with intravenous contrast. Radiation optimization: All CT scans at this facility use at least one of these dose optimization techniques: automated exposure control; mA and/or kV adjustment per patient size (includes targeted exams where dose is matched to clinical indication); or iterative reconstruction. Contrast material: VISI; Contrast volume: 95 ml; Contrast route: 20G; COMPARISON: [place] [id number] 10/03/2017 8:57 AM RADIATION DOSE METRICS: Total DLP: 2641.62 mGy-cm FINDINGS: Lungs: Minimal atelectasis left lung base posterior basal segment left lower lobe. Coronary artery disease. Liver: Unremarkable. No visible hepatic mass or cystic lesion. Gallbladder and bile ducts: Unremarkable. No calcified stones. No ductal dilation. Pancreas: Unremarkable. No ductal dilation. Spleen: Rare splenic calcified granuloma. Spleen otherwise normal. Adrenals: Unremarkable. No mass. Kidneys and ureters: Potential very low-grade pyelonephritis involving the superior pole of the left kidney. Left-sided double-J ureteral stent in place without hydronephrosis or hydroureter. Mild left proximal ureter perinephric and periureter stranding. Stent appears in satisfactory position. Right kidney appears normal. No hydronephrosis or perinephric fluid right kidney. Stomach and bowel: Heavy fecal residue consistent with constipation. Nonobstructive bowel pattern. No visible adynamic or reactive ileus. Appendix: No evidence of appendicitis. Intraperitoneal space: Unremarkable. No free air. No significant fluid collection. Vasculature: The abdominal aorta is nonaneurysmal. Mild arterial sclerotic disease. Lymph nodes: Unremarkable. No enlarged lymph nodes. Bladder: Loredo catheter within the decompressed urinary bladder. Reproductive: Unremarkable as visualized. Bones/joints: Degenerative disease and degenerative disc disease of visualized spine with spondylosis deformans. No visible acute osseous abnormality. Soft tissues: Evidence of previous bilateral herniorrhaphies. Other findings: Obesity. CT/CT abdomen pelvis wo/w [id number] IMPRESSION: 1. Potential very low-grade pyelonephritis involving the superior pole of the left kidney. 2. Left double-J ureteral stent in place without hydronephrosis or hydroureter. 3. Constipation. 4. Other nonurgent, nonemergent, chronic, and age related findings discussed in detail in text above. Radiation Dose CTDIVOL = (mGy): DLP = 2641.62 (mGy-cm)
--- NOTE | 2020-01-12 00:10 | PC.NURSE ---
Dr. Vang NTFD of reaction to antibiotics. Advised him that per ER doctor we are giving benadryl here. He advised that he would change patient's antibiotic.
--- NOTE | 2020-01-12 00:10 | PC.NURSE ---
During pt rounds, pt's states he is having a rash. Pt has rash in circunfrential trunk, bilateral anterior legs. VO from Dr Ibarra for 25mg ben[address] IVP. Dr Hung notified
[2020-01-12] MEDS: diphenhydrAMINE 50 mg/mL SDV 1mL 25 MG IVP (00:13)
[2020-01-12] MEDS: iodixanol 320 mg/mL 100mL Btl IV (00:20)
[2020-01-12 00:53] VITALS: BP 165/53; PULSE 97; RESP 20; TEMP 36.7; O2SAT 95
[2020-01-12] MEDS: aztreonam 2,000 MG in sodium chloride 0.9% (plus) 100 ML 200 MG IV (01:55)
[2020-01-12] MEDS: sodium chloride 0.9% 1,000 ML 100 ML IV ×2 (01:55→12:52)
[2020-01-12] MEDS: enoxaparin 40 mg/0.4 mL Syringe SUBCUT (01:56)
[2020-01-12 04:53] VITALS: BP 150/73; PULSE 71; RESP 18; TEMP 36.7; O2SAT 98
[2020-01-12 05:51] LABS: Basophils % 0.2 %; Hematocrit 41.1 % (42.0-52.0); Hemoglobin 13.1 g/dL (11.7-16.6); Lymphocytes # 1.5 10^3/uL (0.8-4.8); Lymphocytes % 8.9 %; Mean Corpuscular HGB Conc 31.9 g/dL (30.0-36.0); Mean Corpuscular Volume 91.1 fL (80-94); Mean Platelet Volume 9.9 fL (7.4-10.4); Monocytes # 1.6 10^3/uL (0.2-0.9); Monocytes % 9.5 %; Neutrophils # 13.9 10^3/uL (1.8-7.7); Nucleated Red Blood Cells % 0 %; Platelet Count 219 10^3/cmm (130-400); Red Blood Count 4.51 10^6/uL (4.1-5.3); White Blood Count 17.1 10^3/uL (4.0-10.0)
[2020-01-12 06:18] LABS: Anion Gap 18.5 (5-19); Blood Urea Nitrogen 19 mg/dL (8-23); Calcium 8.6 mg/dL (8.5-10.5); Carbon Dioxide 21 mmol/L (22-29); Chloride 103 mmol/L (98-107); Creatinine Clr Calc Pharmacy 68.5238; Glucose 147 mg/dL (65-115); Osmolality Calculated 287 mOsm/kg (285-295); Potassium 3.5 mmol/L (3.5-5.1); Sodium 139 mmol/L (136-145)
[2020-01-12 06:56] LABS: Glucose Point of Care 140 mg/dL (70-110)
[2020-01-12 07:36] VITALS: BP 139/71; PULSE 73; RESP 18; TEMP 36.8; O2SAT 97
--- NOTE | 2020-01-12 10:53 | PC.CHAP ---
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 visit [] Patient/Family/Request visit [] Outpatient visit [] Follow-up visit [] Physician referral [] Code/Alert [X] Routine visit [] Staff referral [] Actively dying [] Patient sleeping [] Family support [] [] Out of room [] Palliative care [] [] Receiving care in room [] Pre-surgical visit [] Trauma [] Long length of stay [] ICU visit [] Other: Relational/Emotional Strength [] Patient feels connected with others/family/visitors/staff [] Distress [] Loneliness/isolation [] Abandonment Spirituality of Patient [] Person of Namrata [] Attends Hoahaoism of their Namrata [] Believes in Prayer [] Reads Bible or Episcopalian materials [] There are Spiritual issues to be addressed Baggageman Interventions [] Prayer [] Active listening [] Non-anxious presence [] Spiritual/emotional support [] Crisis/trauma care [] Spiritual counseling [] Bereavement support [] Provided bereavement packet [] Provided Bible/devotional materials [] Provided toy/stuffed animal, coloring book to patient or family member [] Provided Communion [] Anointing/[place] [] Salvation [] Completed spiritual assessment [] Other: Impact on Illness or Injury [] Angry [] Fearful [] Anxious [] Often cries [] Exhaustion [] Unable to work [] Unable to attend presybeterian [] Unable to walk/stand [] Unable to read [] Unable to drive [] Unable to eat/drink [] Unable to sleep [] Unable to be with family [] Patient intubated [] Other: Summary Time spent with patient
[2020-01-12 11:21] VITALS: BP 137/68; PULSE 75; RESP 18; TEMP 37.1; O2SAT 97
[2020-01-12 11:24] LABS: Glucose Point of Care 161 mg/dL (70-110)
--- NOTE | 2020-01-12 12:35 | PM.PN ---
Subjective Subjective: Interval history: Jacobo still has some nausea. He threw up this morning. No other complaints. Denies any chest pain or shortness of breath. History and physical was reviewed. Medications: Reviewed: Yes Vitals/I&O/Wt Last Vital Signs Temp 98.7 F 01/12/20 11:21 Pulse 75 01/12/20 11:21 Resp 18 01/12/20 11:21 BP 137/68 01/12/20 11:21 Pulse Ox 97 01/12/20 11:21 01/11/20 01/12/20 01/12/20 22:59 06:59 14:59 Intake Total 340 / 340 Output Total 350 / 350 Balance -350 / -350 340 / 340 Weight last 48 hrs Weight 99.79 kg Physical Exam Narrative: EXAM NARRATIVE: General exam no apparent distress Cardiovascular regular in rhythm without murmur Lungs clear Abdomen is soft with positive bowel sounds Extremities no cyanosis clubbing or edema Data : 01/12/20 05:23 01/12/20 05:23 Micro: Microbiology 01/11/20 21:10 Blood Culture - Preliminary Blood SPECIMEN COLLECTED 01/11/20 20:55 Blood Culture - Preliminary Blood SPECIMEN COLLECTED A&P Assessment and plan (1) Sepsis: Secondary to UTI. Recently had stent placement January 09, exchange of left ureteral stent Vital signs currently stable Last fever last night around 11 PM. Status: Acute Qualifiers: Sepsis acute organ dysfunction status: without acute organ dysfunction Sepsis type: sepsis due to unspecified organism Qualified Code(s): A41.9 - Sepsis, unspecified organism (2) Acute cystitis: Change antibiotic to Primaxin in case ESBL is present Await urine culture Status: Acute Qualifiers: Hematuria presence: without hematuria Qualified Code(s): N30.00 - Acute cystitis without hematuria (3) Prostate cancer: Status: Acute Additional A&P Information Locally invasive prostate cancer invading lymph nodes Type 2 diabetes, sliding scale insulin Full code Changed to clear liquid diet secondary to nausea and vomiting Lovenox for DVT prophylaxis Add Protonix secondary to nausea and vomiting Attestations Medical Necessity Statement*: Needs continued hospital stay for IV antibiotics secondary to UTI, sepsis. 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
[2020-01-12] MEDS: pantoprazole DR 40 mg Tablet PO (12:56)
[2020-01-12] MEDS: ondansetron 2 mg/ML SDV 2 mL 4 MG IVP (12:56)
[2020-01-12 15:21] VITALS: BP 120/69; PULSE 82; RESP 18; TEMP 37.6; O2SAT 90
[2020-01-12 17:03] LABS: Glucose Point of Care 128 mg/dL (70-110)
[2020-01-12] MEDS: bisacodyl 10 mg Supp PR (17:20)
[2020-01-12 20:28] VITALS: BP 115/57; PULSE 75; RESP 19; TEMP 37.8; O2SAT 93
[2020-01-12] MEDS: acetaminophen 325 mg Tablet 650 MG PO (21:04)
[2020-01-12 21:07] LABS: Glucose Point of Care 128 mg/dL (70-110)
[2020-01-13] VITALS (7 sets, daily range): BP systolic 119–136; BP diastolic 64–75; PULSE 64–69; RESP 16–22; TEMP 36.7–37.2; O2SAT 93–98
[2020-01-13] MEDS: enoxaparin 40 mg/0.4 mL Syringe SUBCUT (00:21)
[2020-01-13] MEDS: sodium chloride 0.9% 1,000 ML 75 ML IV ×2 (02:27→15:35)
[2020-01-13 06:06] LABS: Basophils % 0.2 %; Eosinophils % 0.4 %; Hematocrit 36.1 % (42.0-52.0); Hemoglobin 11.1 g/dL (11.7-16.6); Lymphocytes # 1.7 10^3/uL (0.8-4.8); Lymphocytes % 16.8 %; Mean Corpuscular HGB Conc 30.7 g/dL (30.0-36.0); Mean Corpuscular Hemoglobin 28.4 pg (28.0-34.0); Mean Corpuscular Volume 92.3 fL (80-94); Mean Platelet Volume 10.6 fL (7.4-10.4); Monocytes # 1.2 10^3/uL (0.2-0.9); Monocytes % 12.2 %; Neutrophils % 70.1 %; Nucleated Red Blood Cells % 0 %; Platelet Count 173 10^3/cmm (130-400); Red Blood Count 3.91 10^6/uL (4.1-5.3); Red Cell Distribution Width 16.1 % (12.1-15.1)
[2020-01-13 06:24] LABS: Alanine Aminotransferase 13 U/L (0-41); Alkaline Phosphatase 52 IU/L (40-130); Anion Gap 15.5 (5-19); Aspartate Amino Transferase 15 U/L (0-40); Blood Urea Nitrogen 14 mg/dL (8-23); Calcium 8.7 mg/dL (8.5-10.5); Carbon Dioxide 22 mmol/L (22-29); Chloride 105 mmol/L (98-107); Globulin 3.3 g/dL (1.3-4.6); Glucose 124 mg/dL (65-115); Osmolality Calculated 286 mOsm/kg (285-295); Potassium 3.5 mmol/L (3.5-5.1); Sodium 139 mmol/L (136-145); Total Bilirubin 0.4 mg/dL (0.15-1.2); Total Protein 6.3 g/dL (6.6-8.7)
[2020-01-13 06:30] LABS: Glucose Point of Care 105 mg/dL (70-110)
[2020-01-13] MEDS: pantoprazole DR 40 mg Tablet PO (08:18)
[2020-01-13 10:44] LABS: Glucose Point of Care 126 mg/dL (70-110)
--- NOTE | 2020-01-13 14:17 | P.PN_ITS ---
Subjective Subjective: Interval history: Alex reports he feels better. Today . No nausea. Medications: Reviewed: Yes Vitals/I&O/Wt Last Vital Signs Temp 98.1 F 01/13/20 11:00 Pulse 68 01/13/20 11:00 Resp 20 H 01/13/20 11:00 BP 128/74 01/13/20 11:00 Pulse Ox 95 01/13/20 11:00 01/12/20 01/13/20 01/13/20 22:59 06:59 14:59 Intake Total 1515 / 2955 385 / 3340 1620 / 1620 Output Total 250 / 250 700 / 950 Balance 1265 / 2705 -315 / 2390 1620 / 1620 Weight last 48 hrs Weight 99.79 kg Physical Exam Narrative: EXAM NARRATIVE: General exam no apparent distress Cardiovascular regular in rhythm without murmur Lungs clear Abdomen is soft with positive bowel sounds Extremities no cyanosis clubbing or edema Data : 01/13/20 04:40 01/13/20 04:40 Micro: Microbiology 01/11/20 22:15 Urine Culture - Preliminary Urine Catheterized Enterococcus species Gram Negative Rods 01/11/20 21:10 Blood Culture - Preliminary Blood Gram positive cocci 01/11/20 20:55 Blood Culture - Preliminary Blood NEGATIVE TO DATE A&P Assessment and plan (1) Sepsis: Secondary to UTI. Recently had stent placement January 09, exchange of left ureteral stent T-max 100.1 blood culture from admission now growing gram-positive cocci, urine culture growing enterococcus species and gram-negative rods Vancomycin added to his regimen. Continue Primaxin Await formal cultures May need PICC line, IV antibiotics 2 weeks Check transthoracic echo. Doubt endocarditis considering no symptoms until following ureteral stent exchange January [address] abdomen pelvis on admission demonstrated constipation, left ureteral stent, possible low-grade left pyelonephritis Status: Acute Qualifiers: Sepsis acute organ dysfunction status: without acute organ dysfunction Sepsis type: sepsis due to unspecified organism Qualified Code(s): A41.9 - Sepsis, unspecified organism (2) Acute cystitis: Continue Primaxin Add vancomycin Await urine culture Status: Acute Qualifiers: Hematuria presence: without hematuria Qualified Code(s): N30.00 - Acute cystitis without hematuria (3) Prostate cancer: Status: Acute Additional A&P Information 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
--- NOTE | 2020-01-13 14:22 | USCV_ITS ---
Alex Kauffman Age: 79 Gender: M : 1940 Exam Date: 01/13/2020 16:13 Ordering Phys: Bright Waters MD Technologist: Mari Matute [place] [facility] [place]ication: Bacteremia BP: 128 / 74 HR: 63 Rhythm: Sinus Technical Quality: Technically difficult study MEASUREMENTS (Male / Female) Normal Values 2D ECHO LV Diastolic Diameter PLAX 3.3 cm 4.2 - 5.9 / 3.9 - 5.3 cm LV Systolic Diameter PLAX 2.4 cm LV Chamber Size 4.0 cm IVS Diastolic Thickness 1.8 cm 0.6 - 1.0 / 0.6 - 0.9 cm IVS Systolic Thickness 2.1 cm LVPW Diastolic Thickness 0.9 cm 0.6 - 1.0 / 0.6 - 0.9 cm LVPW Systolic Thickness 1.8 cm RV Chamber Size 2.6 cm LVOT Diameter 2.1 cm LV Ejection Fraction 2D Teich 55.0 % LA Diameter 3.0 cm LA Width 2.4 cm LA Height 5.8 cm RA Width 3.0 cm RA Height 4.9 cm Aorta at Sinotubular Diameter 2.8 cm M-MODE LV Diastolic Diameter MM 6.6 cm 4.2 - 5.9 / 3.9 - 5.3 cm LV Systolic Diameter MM 4.4 cm LV Ejection Fraction MM Teich 59.9 % IVS Diastolic Thickness MM 1.1 cm 0.6 - 1.0 / 0.6 - 0.9 cm IVS Systolic Thickness MM 1.8 cm LVPW Diastolic Thickness MM 1.2 cm 0.6 - 1.0 / 0.6 - 0.9 cm LVPW Systolic Thickness MM 1.5 cm RV Diastolic Diameter MM 0.9 cm Aortic Annulus Diameter 4.3 cm LA Ao Ratio MM 0.7 MV E Point Septal Separation 0.7 cm DOPPLER AV Peak Velocity 147.0 cm/s LVOT Peak Velocity 125.0 cm/s AV Area Cont Eq vti 2.8 cm squared AV Area Cont Eq pk 2.9 cm squared MV Area PHT 3.4 cm squared Mitral E to A Ratio 1.2 MV E' Velocity 9.0 cm/s Mitral E to MV E' Ratio 13.2 Mitral E to LV E' Lateral Ratio 12.4 Mitral E to LV E' Septal Ratio 14.1 TR Peak Velocity 247.0 cm/s TR Peak Gradient 24.4 mmHg TV Peak E Velocity 97.0 cm/s Right Atrial Pressure 15.0 mmHg Pulmonary Artery Systolic Pressu 39.4 mmHg PV Peak Velocity 80.0 cm/s RV Acceleration Time 0.1 s RV Ejection Time 0.3 s RV AcT/ET 0.4 FINDINGS Left Ventricle Technically poor quality study. Normal left ventricular size, systolic function and wall thickness, with no regional wall motion abnormalities. Grade II/IV diastolic dysfunction, moderately elevated filling pressures. Left ventricular ejection fraction is estimated at 60 %. Right Ventricle Normal right ventricular size and systolic function. Mild pulmonary hypertension, RVSP 39.4 mmHg. Right Atrium The right atrium is normal in size. Left Atrium The left atrium is normal in size. Mitral Valve Mitral valve not well visualized. No mitral valve stenosis. No mitral valve regurgitation. Aortic Valve Aortic valve not well visualized. No aortic valve stenosis. No aortic valve regurgitation. Tricuspid Valve Tricuspid valve not well visualized. Trace tricuspid valve regurgitation. Pulmonic Valve Pulmonic valve not well visualized. Pericardium Normal pericardium without effusion. Aorta Normal ascending aorta dimension. CONCLUSIONS Technically poor quality study. Normal left ventricular size, systolic function and wall thickness, with no regional wall motion abnormalities. Grade II/IV diastolic dysfunction, moderately elevated filling pressures. Left ventricular ejection fraction is estimated at 60 %. Normal right ventricular size and systolic function. Mild pulmonary hypertension, RVSP 39.4 mmHg. Technically limited study. There are no prior echocardiogram studies to compare. Dr. Félix Bruno MD (Electronically Signed) Final Date: 14 January 2020 10:57 S
[2020-01-13 16:25] LABS: Glucose Point of Care 96 mg/dL (70-110)
[2020-01-13 21:28] LABS: Glucose Point of Care 137 mg/dL (70-110)
[2020-01-14] MEDS: enoxaparin 40 mg/0.4 mL Syringe SUBCUT (00:57)
[2020-01-14 03:00] VITALS: BP 129/65; PULSE 61; RESP 20; TEMP 36.9; O2SAT 95
[2020-01-14 05:36] LABS: Basophils % 0.5 %; Eosinophils # 0.2 10^3/uL (0.0-0.8); Eosinophils % 2.7 %; Hematocrit 34.1 % (42.0-52.0); Hemoglobin 10.7 g/dL (11.7-16.6); Lymphocytes # 1.5 10^3/uL (0.8-4.8); Lymphocytes % 26.1 %; Mean Corpuscular HGB Conc 31.4 g/dL (30.0-36.0); Mean Corpuscular Hemoglobin 28.8 pg (28.0-34.0); Mean Corpuscular Volume 91.7 fL (80-94); Mean Platelet Volume 10.3 fL (7.4-10.4); Monocytes # 0.6 10^3/uL (0.2-0.9); Monocytes % 10.4 %; Neutrophils # 3.5 10^3/uL (1.8-7.7); Nucleated Red Blood Cells % 0 %; Platelet Count 182 10^3/cmm (130-400); Red Blood Count 3.72 10^6/uL (4.1-5.3); Red Cell Distribution Width 15.9 % (12.1-15.1); White Blood Count 5.9 10^3/uL (4.0-10.0)
[2020-01-14 06:01] LABS: Anion Gap 15.2 (5-19); Blood Urea Nitrogen 9 mg/dL (8-23); Carbon Dioxide 21 mmol/L (22-29); Chloride 108 mmol/L (98-107); Potassium 3.2 mmol/L (3.5-5.1); Sodium 141 mmol/L (136-145)
[2020-01-14 06:02] LABS: Calcium 8.9 mg/dL (8.5-10.5); Glucose 122 mg/dL (65-115); Osmolality Calculated 289 mOsm/kg (285-295)
[2020-01-14 06:09] LABS: Glucose Point of Care 108 mg/dL (70-110)
--- NOTE | 2020-01-14 06:34 | PC.NURSE ---
SHIFT SUMMARY. PT HAD NO C/O PAIN OR SOB. RESTED WELL THROUGHOUT THE NIGHT. ADEQUATE URINE OUTPUT.
[2020-01-14 07:00] VITALS: BP 124/72; PULSE 61; RESP 18; TEMP 36.7; O2SAT 96
[2020-01-14] MEDS: pantoprazole DR 40 mg Tablet PO (09:04)
[2020-01-14] MEDS: sodium chloride 0.9% 1,000 ML 50 ML IV (10:36)
--- NOTE | 2020-01-14 10:44 | PC.SOCIAL ---
Pg 2 IMM Explained to pt Pg 2 IMM. Pt verbally understands. No questions voiced. Provided pt a copy & left on pt's bedside table. Signed, dated, & timed a copy & placed in pt's chart.
[2020-01-14 11:00] VITALS: BP 127/72; PULSE 61; RESP 18; TEMP 36.6; O2SAT 97
[2020-01-14 11:47] LABS: Glucose Point of Care 122 mg/dL (70-110)
[2020-01-14 11:48] LABS: Vancomycin Trough 13.6 ug/mL (10-15)
[2020-01-14 15:00] VITALS: BP 144/86; PULSE 66; RESP 16; TEMP 36.9; O2SAT 95
[2020-01-14 16:54] LABS: Glucose Point of Care 96 mg/dL (70-110)
[2020-01-14 19:00] VITALS: BP 147/79; PULSE 64; RESP 20; TEMP 37; O2SAT 97
--- NOTE | 2020-01-14 20:59 | P.PN_ITS ---
Subjective Subjective: Interval history: He states he is doing well. Denies any complaints. Denies abdominal pain. No nausea or vomiting. Vitals/I&O/Wt Last Vital Signs Temp 98.4 F 01/14/20 15:00 Pulse 66 01/14/20 15:00 Resp 16 01/14/20 15:00 BP 144/86 01/14/20 15:00 Pulse Ox 95 01/14/20 15:00 01/14/20 01/14/20 01/14/20 06:59 14:59 22:59 Intake Total 925.833 / 4590.833 892.5 / 892.5 240 / 1132.5 Output Total 1050 / 3370 Balance -124.167 / 1220.833 892.5 / 892.5 240 / 1132.5 Physical Exam Const: COMMON NORMALS: no acute distress and patient oriented x3 OTHER: Pleasant elderly gentleman. Not appearing in discomfort. HENMT: COMMON NORMALS: oropharynx normal Neck/C-Spine: COMMON NORMALS: no JVD Resp: COMMON NORMALS: normal respiratory effort and clear to auscultation bilaterally AUSCULTATION: clear to auscultation bilaterally Cardio: COMMON NORMALS: no JVD, regular rhythm, S1 normal heart sound present, S2 normal heart sound present and No murmurs present (Cardio) RHYTHM: regular rhythm HEART SOUNDS: S1 normal heart sound present and S2 normal heart sound present GI: COMMON NORMALS: Normal to inspection, nondistended, normoactive bowel sounds present, Soft to palpation and non-tender PALPATION: Yes Soft to palpation Extremity: COMMON NORMALS: no joint enlargement and no pedal edema Neuro: COMMON NORMALS: patient oriented x3 and moves all extremities Skin: COMMON NORMALS: no rashes or lesions noted GENERAL SKIN EXAM: no rashes or lesions noted Data : 01/14/20 05:12 01/14/20 05:12 Micro: Microbiology 01/13/20 15:20 Blood Culture - Preliminary Blood NEGATIVE TO DATE 01/13/20 15:30 Blood Culture - Preliminary Blood NEGATIVE TO DATE 01/11/20 22:15 Urine Culture - Preliminary Urine Catheterized Enterococcus species Gram Negative Rods Gram Negative Rods#2 01/14/20 05:15 Blood Culture - Preliminary Blood SPECIMEN COLLECTED 01/14/20 05:12 Blood Culture - Preliminary Blood SPECIMEN COLLECTED A&P Assessment and plan (1) Sepsis: Complicated urinary tract infection, status post ureteral stent placement, due to chronic obstruction, with underlying prostate cancer, lymphadenopathy. Pending culture studies on blood from 01/10, urine 01/10. Enterococcus species noted in urine, as well as 2 gram-negative rods. Gram-positive cocci in blood. For now continue current IV antibiotics. Discussed with him will need additional 2 weeks of therapy, yet to be determined with which antibiotic. He does state that his and daughter should be able to assist him with IV infusions at home. His daughter is an RN, although also works so it appears may not be able to be there every day, or potentially multiple times a day. Secondary to UTI. Per discussion with urology stent is okay to remain in place at this time. Of note no hydronephrosis was noted on CT 01/11. Low-grade pyelonephritis. Vancomycin. Continue Primaxin PICC line and IV antibiotics once it is clear repeat cultures are negative, as well as ID and sensitivity are back. TTE without gross valvular abnormality, although valves not very well visualized. Infection appears to be related to stent exchange. For now diagnosis of endocarditis is rejected despite minor criteria. Monitor for any appearance of symptoms, low threshold for additional evaluation by FREDDY. Status: Acute Qualifiers: Sepsis acute organ dysfunction status: without acute organ dysfunction Sepsis type: sepsis due to unspecified organism Qualified Code(s): A41.9 - Sepsis, unspecified organism (2) Acute cystitis: As above. Status: Acute Qualifiers: Hematuria presence: without hematuria Qualified Code(s): N30.00 - Acute cystitis without hematuria (3) Prostate cancer: Continue follow-up with oncology after discharge. Status: Acute Additional A&P Information Type 2 diabetes, sliding scale insulin Attestations Medical Necessity Statement*: Continue admission for assessment management of complicated UTI, pyelonephritis, improving sepsis, bacteremia. Coding Level of Care Code Acute Senior Director Finance for g Fwd Exam Comprehensive Diagnoses Sepsis A41.9 Sepsis acute organ dysfunction status: without acute organ dysfunction Sepsis type: sepsis due to unspecified organism Acute cystitis N30.00 Hematuria presence: without hematuria Prostate cancer C61
[2020-01-14 22:11] LABS: Glucose Point of Care 114 mg/dL (70-110)
[2020-01-14 23:00] VITALS: BP 150/80; PULSE 62; RESP 20; TEMP 36.9; O2SAT 95
[2020-01-15] MEDS: enoxaparin 40 mg/0.4 mL Syringe SUBCUT (00:44)
[2020-01-15] MEDS: ondansetron 2 mg/ML SDV 2 mL 4 MG IVP (02:55)
[2020-01-15 04:00] VITALS: BP 146/80; PULSE 60; RESP 24; TEMP 36.7; O2SAT 95
[2020-01-15 04:47] LABS: Basophils % 0.3 %; Eosinophils # 0.2 10^3/uL (0.0-0.8); Eosinophils % 2.6 %; Hemoglobin 11.5 g/dL (11.7-16.6); Lymphocytes # 1.3 10^3/uL (0.8-4.8); Lymphocytes % 20.4 %; Mean Corpuscular HGB Conc 31.9 g/dL (30.0-36.0); Mean Corpuscular Hemoglobin 29.6 pg (28.0-34.0); Mean Corpuscular Volume 92.5 fL (80-94); Monocytes # 0.6 10^3/uL (0.2-0.9); Monocytes % 9.5 %; Neutrophils # 4.1 10^3/uL (1.8-7.7); Neutrophils % 66.7 %; Nucleated Red Blood Cells % 0 %; Platelet Count 205 10^3/cmm (130-400); Red Blood Count 3.89 10^6/uL (4.1-5.3); Red Cell Distribution Width 15.6 % (12.1-15.1); White Blood Count 6.1 10^3/uL (4.0-10.0)
[2020-01-15 05:05] LABS: Blood Urea Nitrogen 10 mg/dL (8-23); Carbon Dioxide 23 mmol/L (22-29); Chloride 107 mmol/L (98-107); Glucose 124 mg/dL (65-115); Osmolality Calculated 291 mOsm/kg (285-295); Sodium 142 mmol/L (136-145)
--- NOTE | 2020-01-15 06:03 | PC.NURSE ---
Shift note Patient had increased swelling in all extremities with slight bilateral expiratory wheezes. Physician was notified and fluids were stopped. Patient rested well throughout the night with no complaints of pain.
[2020-01-15 06:32] LABS: Glucose Point of Care 116 mg/dL (70-110)
[2020-01-15 07:51] VITALS: BP 154/87; PULSE 67; RESP 18; TEMP 36.7; O2SAT 94
[2020-01-15] MEDS: pantoprazole DR 40 mg Tablet PO (08:37)
[2020-01-15 11:19] VITALS: BP 149/78; PULSE 66; RESP 18; TEMP 36.8; O2SAT 94
[2020-01-15 11:51] LABS: Glucose Point of Care 107 mg/dL (70-110)
--- NOTE | 2020-01-15 12:47 | PC.RESP ---
SMOKING CESSATION INFORMATION SENT TO PATIENT.
[2020-01-15 16:00] VITALS: BP 145/75; PULSE 62; RESP 18; TEMP 36.9; O2SAT 97
[2020-01-15 16:35] LABS: Glucose Point of Care 104 mg/dL (70-110)
--- NOTE | 2020-01-15 18:11 | PM.PN ---
Subjective Subjective: Interval history: He is feeling well. Denies any new symptoms. Feels ready to return home anytime. Vitals/I&O/Wt Last Vital Signs Temp 98.4 F 01/15/20 16:00 Pulse 62 01/15/20 16:00 Resp 18 01/15/20 16:00 BP 145/75 01/15/20 16:00 Pulse Ox 97 01/15/20 16:00 01/15/20 01/15/20 01/15/20 06:59 14:59 22:59 Intake Total 1388.333 / 3350.833 480 / 480 240 / 720 Output Total 1300 / 2900 Balance 88.333 / 450.833 480 / 480 240 / 720 Physical Exam Const: COMMON NORMALS: no acute distress and patient oriented x3 OTHER: Pleasant elderly gentleman. Not appearing in discomfort. HENMT: COMMON NORMALS: oropharynx normal Neck/C-Spine: COMMON NORMALS: no JVD Resp: COMMON NORMALS: normal respiratory effort and clear to auscultation bilaterally AUSCULTATION: clear to auscultation bilaterally Cardio: COMMON NORMALS: no JVD, regular rhythm, S1 normal heart sound present, S2 normal heart sound present and No murmurs present (Cardio) RHYTHM: regular rhythm HEART SOUNDS: S1 normal heart sound present and S2 normal heart sound present GI: COMMON NORMALS: Normal to inspection, nondistended, normoactive bowel sounds present, Soft to palpation and non-tender PALPATION: Yes Soft to palpation Extremity: COMMON NORMALS: no joint enlargement and no pedal edema Neuro: COMMON NORMALS: patient oriented x3 and moves all extremities Skin: COMMON NORMALS: no rashes or lesions noted GENERAL SKIN EXAM: no rashes or lesions noted Data : 01/15/20 04:20 01/15/20 04:20 Micro: Microbiology 01/11/20 21:10 Blood Culture - Preliminary Blood Staphylococcus species 01/11/20 22:15 Urine Culture - Preliminary Urine Catheterized Enterococcus species Pseudomonas aeruginosa 01/14/20 05:15 Blood Culture - Preliminary Blood NEGATIVE TO DATE 01/14/20 05:12 Blood Culture - Preliminary Blood NEGATIVE TO DATE 01/13/20 15:20 Blood Culture - Preliminary Blood NEGATIVE TO DATE 01/13/20 15:30 Blood Culture - Preliminary Blood NEGATIVE TO DATE A&P Assessment and plan (1) Sepsis: Midline catheter line was about to be requested today as his subsequent blood cultures have remained negative, however, per discussion w microbiology as the original blood culture w [facility] has not been resulted yet, they expressed suspicion for possibility of skin contaminant. It is in a single set. They are running the panel now. Discussed w patient in case of skin contaminant he would be able to forego IV antibiotic course, however, [facility] could be low growth from enterococcus as well. In case it is contaminant, would not require an catheter and so placement for now withheld. Complicated urinary tract infection, status post ureteral stent placement, due to chronic obstruction, with underlying prostate cancer, lymphadenopathy. Pending culture studies on blood from 01/10, urine 01/10. Enterococcus species noted in urine, as well as 2 gram-negative rods. Gram-positive cocci in blood. For now continue current IV antibiotics. Discussed with him will need additional 2 weeks of therapy, yet to be determined with which antibiotic. He does state that his and daughter should be able to assist him with IV infusions at home. His daughter is an RN, although also works so it appears may not be able to be there every day, or potentially multiple times a day. Secondary to UTI. Per discussion with urology stent is okay to remain in place at this time. Of note no hydronephrosis was noted on CT 01/11. Low-grade pyelonephritis. Vancomycin. Continue Primaxin PICC line and IV antibiotics once it is clear repeat cultures are negative, as well as ID and sensitivity are back. TTE without gross valvular abnormality, although valves not very well visualized. Infection appears to be related to stent exchange. For now diagnosis of endocarditis is rejected despite minor criteria. Monitor for any appearance of symptoms, low threshold for additional evaluation by FREDDY. Discussed w patient and he is in agreement with the assessment as well. Status: Acute Qualifiers: Sepsis acute organ dysfunction status: without acute organ dysfunction Sepsis type: sepsis due to unspecified organism Qualified Code(s): A41.9 - Sepsis, unspecified organism (2) Acute cystitis: As above. Status: Acute Qualifiers: Hematuria presence: without hematuria Qualified Code(s): N30.00 - Acute cystitis without hematuria (3) Prostate cancer: Continue follow-up with oncology after discharge. Status: Acute Additional A&P Information Type 2 diabetes, sliding scale insulin Attestations Medical Necessity Statement*: Continue admission for assessment and management of complicated urinary tract infection with bacteremia, in the setting of prostate cancer. Coding Level of Care Code Acute Neonatal Doctor for Chg Fwd Diagnoses Sepsis A41.9 Sepsis acute organ dysfunction status: without acute organ dysfunction Sepsis type: sepsis due to unspecified organism Acute cystitis N30.00 Hematuria presence: without hematuria Prostate cancer C61
[2020-01-15 20:00] VITALS: BP 149/81; PULSE 59; RESP 20; TEMP 36.9; O2SAT 96
[2020-01-15 21:53] LABS: Glucose Point of Care 103 mg/dL (70-110)
[2020-01-16] VITALS (7 sets, daily range): BP systolic 125–167; BP diastolic 62–82; PULSE 57–64; RESP 18–20; TEMP 36.6–37; O2SAT 94–97
[2020-01-16] MEDS: enoxaparin 40 mg/0.4 mL Syringe SUBCUT (01:06)
[2020-01-16] MEDS: ondansetron 2 mg/ML SDV 2 mL 4 MG IVP (03:59)
[2020-01-16 05:00] LABS: Basophils % 0.5 %; Eosinophils # 0.2 10^3/uL (0.0-0.8); Eosinophils % 2.6 %; Hematocrit 37.2 % (42.0-52.0); Hemoglobin 11.8 g/dL (11.7-16.6); Lymphocytes # 1.7 10^3/uL (0.8-4.8); Lymphocytes % 27.6 %; Mean Corpuscular HGB Conc 31.7 g/dL (30.0-36.0); Mean Corpuscular Hemoglobin 29.2 pg (28.0-34.0); Mean Corpuscular Volume 92.1 fL (80-94); Mean Platelet Volume 9.7 fL (7.4-10.4); Monocytes # 0.6 10^3/uL (0.2-0.9); Neutrophils # 3.7 10^3/uL (1.8-7.7); Neutrophils % 59.8 %; Nucleated Red Blood Cells % 0 %; Platelet Count 225 10^3/cmm (130-400); Red Blood Count 4.04 10^6/uL (4.1-5.3); Red Cell Distribution Width 15.3 % (12.1-15.1); White Blood Count 6.2 10^3/uL (4.0-10.0)
[2020-01-16 05:19] LABS: Anion Gap 17.6 (5-19); Blood Urea Nitrogen 10 mg/dL (8-23); Calcium 9.3 mg/dL (8.5-10.5); Carbon Dioxide 24 mmol/L (22-29); Chloride 106 mmol/L (98-107); Glucose 119 mg/dL (65-115); Magnesium 2.1 mg/dL (1.7-2.3); Osmolality Calculated 295 mOsm/kg (285-295); Potassium 3.6 mmol/L (3.5-5.1); Sodium 144 mmol/L (136-145)
--- NOTE | 2020-01-16 06:03 | PC.NURSE ---
Shift Summary Patient rested well throughout the night. Loredo catheter had increased leakage so nurse deflated the balloon and advanced the catheter inflating the balloon with 10cc that was originally inserted. Patient tolerated well. No further leaking was observed. Patient did not complain of any pain but did have some nausea and zofran was given with good results of no more nausea. Patient had good urine output throughout shift.
[2020-01-16 07:10] LABS: Glucose Point of Care 120 mg/dL (70-110)
[2020-01-16] MEDS: pantoprazole DR 40 mg Tablet PO (09:32)
[2020-01-16 12:02] LABS: Glucose Point of Care 101 mg/dL (70-110)
[2020-01-16 12:09] LABS: Vancomycin Trough 18.2 ug/mL (10-15)
--- NOTE | 2020-01-16 12:18 | P.HPUD_ITS ---
Surgery/Procedure H&P Update DATE OF PROCEDURE: January 10, 2020 Performed this day but delayed entry DATE H&P PERFORMED: 01/04/20 H&P UPDATE INFORMATION: I have reviewed H&P completed within last 30 days, I have examined patient prior to procedure, No changes to prior documentation and H&P [place] [facility] [place] indicated PREOP DIAGNOSIS: chronic LEFT ureteral stent
--- NOTE | 2020-01-16 15:00 | PC.NURSE ---
Loredo catheter removed at this time. Patient tolerated well. 1000 mls pof clear yellow urine drained from bag prior to removal.
--- NOTE | 2020-01-16 15:17 | PM.DCS ---
Discharge Providers Date of Admission: 01/11/20 23:18 Date of Discharge: January 16, 2020 Attending Provider at Admission: Timothy Hung MD Attending Provider at Discharge: Vaughn Lizarraga Primary Care Provider: Roxann Masters APN Diagnoses at Discharge Discharge Diagnosis (1) Sepsis: Status: Acute Qualifiers: Sepsis acute organ dysfunction status: without acute organ dysfunction Sepsis type: sepsis due to unspecified organism Qualified Code(s): A41.9 - Sepsis, unspecified organism (2) Acute cystitis: Status: Acute Qualifiers: Hematuria presence: without hematuria Qualified Code(s): N30.00 - Acute cystitis without hematuria (3) Prostate cancer: Status: Acute Reason for Visit Reason for Visit: Septic symptoms Hospital Course Hospital Course: Very pleasant 79-year-old gentleman with 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 He was treated with IV antibiotics, stent was okay to stay in per urology. Urine cultures eventually growing Pseudomonas and enterococcus. Concern was for bacteremia with first blood culture growing gram-positive cocci in 1 set 2/4 bottles, although this eventually grew to be staph epidermidis. His sepsis has resolved. Overall he is doing great, and feels strong and happy to return home. Additional component of unrelated bacteremia is suspected much less likely, and most likely this was contamination. Both Pseudomonas and enterococcus are susceptible to quinolones. Discussed with urology, and he will be completing a course of 10 more days with ciprofloxacin, and follow-up with urology in office in 1 week for reevaluation, consideration possibly of long-term antimicrobial suppression, and [place] catheter is okay to commode at this time. Of note ciprofloxacin is listed as an allergy. Discussed with him, he does not remember ever having a reaction to this medication. Thinks he may have had some rash from penicillins before, but has no idea why ciprofloxacin is listed. He denies ever having a life-threatening reaction, anaphylaxis, etc. He is wanting to try ciprofloxacin, is willing to take the first dose here in the hospital. Physical Exam Const: COMMON NORMALS: no acute distress and patient oriented x3 OTHER: Pleasant elderly gentleman. Not appearing in discomfort. HENMT: COMMON NORMALS: oropharynx normal Neck/C-Spine: COMMON NORMALS: no JVD Resp: COMMON NORMALS: normal respiratory effort and clear to auscultation bilaterally AUSCULTATION: clear to auscultation bilaterally Cardio: COMMON NORMALS: no JVD, regular rhythm, S1 normal heart sound present, S2 normal heart sound present and No murmurs present (Cardio) RHYTHM: regular rhythm HEART SOUNDS: S1 normal heart sound present and S2 normal heart sound present GI: COMMON NORMALS: Normal to inspection, nondistended, normoactive bowel sounds present, Soft to palpation and non-tender PALPATION: Yes Soft to palpation Extremity: COMMON NORMALS: no joint enlargement and no pedal edema Neuro: COMMON NORMALS: patient oriented x3 and moves all extremities Skin: COMMON NORMALS: no rashes or lesions noted GENERAL SKIN EXAM: no rashes or lesions noted Discharge Data Data Completed and Pending: Completed Studies During Hospitalization Category Date Time Status CT abdomen pelvis wo/w [id number] Urgent Cat Scan 01/11/20 23:40 Completed XR chest 1V jah ble [id number] Urgent Exams 01/11/20 20:48 Completed CV echo complete* [id number] Routine Ultrasound 01/13/20 14:22 Completed Pending at discharge Category Date Time Status Basic Metabolic P amy AM LABS Lab 01/17/20 04:00 Ordered Blood Culture AM LABS Lab 01/14/20 05:15 Results Blood Culture Rou gabriel Lab 01/13/20 15:30 Results Blood Culture Sta t Lab 01/11/20 21:10 Results Complete Blood Co unt w/Auto AM LABS Lab 01/17/20 04:00 Ordered Urine Culture Sta t Lab 01/11/20 22:15 Results Labs from last 24 hours 01/16/20 01/16/20 01/16/20 11:25 11:15 06:42 WBC RBC Hgb Hct MCV MCH MCHC RDW Plt Count MPV Neut % (Auto) Lymph % (Auto) [place] % (Auto) Eos % (Auto) Baso % (Auto) Neut # (Auto) Lymph # (Auto) [place] # (Auto) Eos # (Auto) Baso # (Auto) Nucleated RBC % (a uto) Nucleated RBCs # Sodium Potassium Chloride Carbon Dioxide Anion Gap BUN Creatinine Glucose POC Glucose 101 120 Calculated Osmolal ity Calcium Magnesium Vancomycin Trough 18.2 H 01/16/20 01/16/20 01/16/20 04:48 04:48 04:48 WBC 6.2 RBC 4.04 L Hgb 11.8 Hct 37.2 L MCV 92.1 MCH 29.2 MCHC 31.7 RDW 15.3 H Plt Count 225 MPV 9.7 Neut % (Auto) 59.8 Lymph % (Auto) 27.6 [place] % (Auto) 9.0 Eos % (Auto) 2.6 Baso % (Auto) 0.5 Neut # (Auto) 3.7 Lymph # (Auto) 1.7 [place] # (Auto) 0.6 Eos # (Auto) 0.2 Baso # (Auto) 0.0 Nucleated RBC % (a uto) 0 Nucleated RBCs # 0.0 Sodium 144 Potassium 3.6 Chloride 106 Carbon Dioxide 24 Anion Gap 17.6 BUN 10 Creatinine 0.7 Glucose 119 H POC Glucose Calculated Osmolal ity 295 Calcium 9.3 Magnesium 2.1 Vancomycin Trough 01/15/20 01/15/20 21:46 16:30 WBC RBC Hgb Hct MCV MCH MCHC RDW Plt Count MPV Neut % (Auto) Lymph % (Auto) [place] % (Auto) Eos % (Auto) Baso % (Auto) Neut # (Auto) Lymph # (Auto) [place] # (Auto) Eos # (Auto) Baso # (Auto) Nucleated RBC % (a uto) Nucleated RBCs # Sodium Potassium Chloride Carbon Dioxide Anion Gap BUN Creatinine Glucose POC Glucose 103 104 Calculated Osmolal ity Calcium Magnesium Vancomycin Trough Vitals: Last Vital Signs Temp 98.2 F 01/16/20 11:13 Pulse 60 01/16/20 11:13 Resp 18 01/16/20 11:13 BP 143/82 01/16/20 11:13 Pulse Ox 94 01/16/20 11:13 Discharge Plan Discharge Patient Disposition: Home, Self-Care Condition: Stable Prescriptions: New ciprofloxacin HCl 500 mg tablet 500 mg PO BID 10 Days Qty: 20 RF: 0 Continued Xtandi 40 mg capsule 160 mg PO DAILY RF: 0 metformin 500 mg tablet 500 mg PO DAILY RF: 0 ascorbic acid (vitamin C) 1,000 mg tablet 1 gm PO BID RF: 0 famciclovir 500 mg Tablet 500 mg PO BID RF: 0 Discontinued methenamine mandelate 1 gram tablet 1 gm PO BID Qty: 60 RF: 6 Referrals: Roxann Masters APN [Primary Care Provider] - 4-7 days Jasper Lloyd MD [Physician] - 1 week Discharge Diet: Diabetic Discharge Activity: Increase activity as tolerated Activity Restrictions/Additional Instructions: If you notice any trouble breathing, dizziness, fainting, low blood pressure, or other abnormal symptoms from taking medication or otherwise, spiking high fever, blood in urine, trouble urinating, severe pain, or other issues, please seek medical attention without delay. Discharge Attestations Time Spent in Discharge Care*: greater than 30 min Quality Metrics Clinical Quality Measures During this hospital stay, did patient experience: None Coding Level of Care Code Acute Bathhouse Keeper for Cristy Fwd Diagnoses Sepsis A41.9 Sepsis acute organ dysfunction status: without acute organ dysfunction Sepsis type: sepsis due to unspecified organism Acute cystitis N30.00 Hematuria presence: without hematuria Prostate cancer C61
--- NOTE | 2020-01-16 16:21 | PC.ADMIT ---
[facility] [address] [facility] Admission Note: The patient,Alex Kauffman,79 y/o, was given written information regarding hospital policies, unit procedures and contact persons. Patient's smoking status: never smoked. Vital Signs - 8 hr 01/16/20 11:13 Temperature 98.2 F Pulse Rate 60 Respiratory Rate 18 Blood Pressure 143/82 Pulse Oximetry 94
--- NOTE | 2020-01-16 16:21 | DCPLANNER ---
Pg 2 of IM updated and reviewed with pt. No questions, copy provided.
[2020-01-16] MEDS: ciprofloxacin 500 mg Tablet PO (16:45)
[2020-01-16 17:02] LABS: Glucose Point of Care 96 mg/dL (70-110)
[2020-01-16 19:55] LABS: Glucose Point of Care 103 mg/dL (70-110)
[2020-01-17] MEDS: enoxaparin 40 mg/0.4 mL Syringe SUBCUT (02:02)
[2020-01-17 04:00] VITALS: BP 139/6; PULSE 59; RESP 18; TEMP 36.6; O2SAT 95
[2020-01-17 05:38] LABS: Basophils % 0.5 %; Eosinophils # 0.3 10^3/uL (0.0-0.8); Eosinophils % 4.5 %; Hematocrit 36.8 % (42.0-52.0); Hemoglobin 11.7 g/dL (11.7-16.6); Lymphocytes # 1.7 10^3/uL (0.8-4.8); Lymphocytes % 25.9 %; Mean Corpuscular HGB Conc 31.8 g/dL (30.0-36.0); Mean Corpuscular Hemoglobin 29.2 pg (28.0-34.0); Mean Corpuscular Volume 91.8 fL (80-94); Mean Platelet Volume 9.8 fL (7.4-10.4); Monocytes # 0.6 10^3/uL (0.2-0.9); Neutrophils # 3.9 10^3/uL (1.8-7.7); Neutrophils % 59.3 %; Nucleated Red Blood Cells % 0 %; Platelet Count 231 10^3/cmm (130-400); Red Blood Count 4.01 10^6/uL (4.1-5.3); Red Cell Distribution Width 15.5 % (12.1-15.1); White Blood Count 6.6 10^3/uL (4.0-10.0)
[2020-01-17 05:53] LABS: Anion Gap 15.5 (5-19); Blood Urea Nitrogen 14 mg/dL (8-23); Calcium 8.7 mg/dL (8.5-10.5); Carbon Dioxide 23 mmol/L (22-29); Chloride 108 mmol/L (98-107); Glucose 118 mg/dL (65-115); Osmolality Calculated 293 mOsm/kg (285-295); Potassium 3.5 mmol/L (3.5-5.1); Sodium 143 mmol/L (136-145)
[2020-01-17 06:04] LABS: Glucose Point of Care 105 mg/dL (70-110)
[2020-01-17 08:00] VITALS: BP 150/80; PULSE 74; RESP 16; TEMP 36.2; O2SAT 95
[2020-01-17] MEDS: pantoprazole DR 40 mg Tablet PO (09:07)
[2020-01-17 11:08] LABS: Glucose Point of Care 129 mg/dL (70-110)
--- NOTE | 2020-01-17 11:34 | PM.PN ---
Subjective Subjective: Interval history: Please refer to DC summary from 01/15. Seen today he is feeling great and has had no reaction to the medication. Wants to go home. Vitals/I&O/Wt Last Vital Signs Temp 97.2 F L 01/17/20 08:00 Pulse 74 01/17/20 08:00 Resp 16 01/17/20 08:00 BP 150/80 01/17/20 08:00 Pulse Ox 95 01/17/20 08:00 01/16/20 01/17/20 01/17/20 22:59 06:59 14:59 Intake Total 100 / 320 240 / 240 Output Total 1000 / 1000 Balance -1000 / -780 100 / -680 240 / 240 Physical Exam Const: COMMON NORMALS: no acute distress and patient oriented x3 OTHER: Pleasant elderly gentleman. Not appearing in discomfort. HENMT: COMMON NORMALS: oropharynx normal Neck/C-Spine: COMMON NORMALS: no JVD Resp: COMMON NORMALS: normal respiratory effort and clear to auscultation bilaterally AUSCULTATION: clear to auscultation bilaterally Cardio: COMMON NORMALS: no JVD, regular rhythm, S1 normal heart sound present, S2 normal heart sound present and No murmurs present (Cardio) RHYTHM: regular rhythm HEART SOUNDS: S1 normal heart sound present and S2 normal heart sound present GI: COMMON NORMALS: Normal to inspection, nondistended, normoactive bowel sounds present, Soft to palpation and non-tender PALPATION: Yes Soft to palpation Extremity: COMMON NORMALS: no joint enlargement and no pedal edema Neuro: COMMON NORMALS: patient oriented x3 and moves all extremities Skin: COMMON NORMALS: no rashes or lesions noted GENERAL SKIN EXAM: no rashes or lesions noted OTHER: Minimal swelling R forearm after IV yesterday, improving Data : 01/17/20 05:27 01/17/20 05:27 Micro: Microbiology 01/11/20 20:55 Blood Culture - Final Blood NO GROWTH AFTER 5 DAYS 01/11/20 22:15 Urine Culture - Preliminary Urine Catheterized Enterococcus faecalis Pseudomonas aeruginosa Gram Negative Rods 01/11/20 21:10 Blood Culture - Final Blood Staphylococcus epidermidis A&P Assessment and plan (1) Sepsis: Enterococcus and Pseudomonas sensitive to quinolones. Has cipro allergy listed in past, but tolerated medication here and observed overnight. Will complete course w Levaquin 10 day course. Follow up w urology in office in 7 days. He and daughter both agreeable with plan. He knows to seek medical attention immediately in case his condition deteriorates. Complicated urinary tract infection, status post ureteral stent placement, due to chronic obstruction, with underlying prostate cancer, lymphadenopathy. Pending culture studies on blood from 01/10, urine 01/10. Enterococcus species noted in urine, as well as 2 gram-negative rods. Gram-positive cocci in blood. For now continue current IV antibiotics. Discussed with him will need additional 2 weeks of therapy, yet to be determined with which antibiotic. He does state that his and daughter should be able to assist him with IV infusions at home. His daughter is an RN, although also works so it appears may not be able to be there every day, or potentially multiple times a day. Secondary to UTI. Per discussion with urology stent is okay to remain in place at this time. Of note no hydronephrosis was noted on CT 01/11. Low-grade pyelonephritis. Vancomycin. Continue Primaxin PICC line and IV antibiotics once it is clear repeat cultures are negative, as well as ID and sensitivity are back. TTE without gross valvular abnormality, although valves not very well visualized. Infection appears to be related to stent exchange. For now diagnosis of endocarditis is rejected despite minor criteria. Monitor for any appearance of symptoms, low threshold for additional evaluation by FREDDY. Discussed w patient and he is in agreement with the assessment as well. Status: Acute Qualifiers: Sepsis acute organ dysfunction status: without acute organ dysfunction Sepsis type: sepsis due to unspecified organism Qualified Code(s): A41.9 - Sepsis, unspecified organism (2) Acute cystitis: As above. Status: Acute Qualifiers: Hematuria presence: without hematuria Qualified Code(s): N30.00 - Acute cystitis without hematuria (3) Prostate cancer: Continue follow-up with oncology after discharge. Status: Acute Additional A&P Information Type 2 diabetes, sliding scale insulin Attestations Medical Necessity Statement*: Returning home today. Coding Level of Care Code Acute Human Resources Intern for Isidro Vee Diagnoses Sepsis A41.9 Sepsis acute organ dysfunction status: without acute organ dysfunction Sepsis type: sepsis due to unspecified organism Acute cystitis N30.00 Hematuria presence: without hematuria Prostate cancer C61
[2020-01-17 12:00] VITALS: BP 142/80; PULSE 63; RESP 16; TEMP 36.6; O2SAT 92
[2020-01-17 12:45] VITALS: BP 142/80; PULSE 63; RESP 16; TEMP 36.6; O2SAT 92
== END 2020-01-17 12:46 | disposition home or self-care (01) | DRG 872 ==
LOC: ER 21:39 → MEDSURG 23:19
PROVIDERS: Internal Medicine; Admitting Provider Internal Medicine; Emergency Provider Emergency Medicine; PCP Nurse Practitioner; Visit Provider Internal Medicine
DX: A41.9 Sepsis, unspecified organism (principal); C77.9 Secondary and unspecified malignant neoplasm of lymph node, unspecified; N30.00 Acute cystitis without hematuria; N11.1 Chronic obstructive pyelonephritis; C61 Malignant neoplasm of prostate; Z96.0 Presence of urogenital implants; N30.20 Other chronic cystitis without hematuria; Z90.79 Acquired absence of other genital organ(s); B95.2 Enterococcus as the cause of diseases classified elsewhere; B96.5 Pseudomonas (aeruginosa) (mallei) (pseudomallei) as the cause of diseases classified elsewhere; Z79.899 Other long term (current) drug therapy; Z79.84 Long term (current) use of oral hypoglycemic drugs
CPT/HCPCS: 12345; 36415; 36416; 71045; 74178; 76000; 80048; 80053; 80202; 81001; 82962; 83605; 83735; 85025; 85610; 87040; 87077; 87086; 87186; 93306; 96372; 96375; 99283; C2625; J0696; J0743; J1200; J1580; J1650; J2001; J2405; J2704; J3370; J3490; J7030; J7050; Q9967

== ENCOUNTER 2020-01-25 09:06 | Outpatient (CLI) | payer MEDICARE, OTHER, SELFPAY ==
[2020-01-25 09:56] LABS: Basophils % 0.5 %; Eosinophils # 0.3 10^3/uL (0.0-0.8); Eosinophils % 3.9 %; Hematocrit 44.8 % (42.0-52.0); Hemoglobin 13.8 g/dL (11.7-16.6); Lymphocytes # 2.2 10^3/uL (0.8-4.8); Lymphocytes % 29.8 %; Mean Corpuscular HGB Conc 30.8 g/dL (30.0-36.0); Mean Corpuscular Hemoglobin 28.5 pg (28.0-34.0); Mean Corpuscular Volume 92.4 fL (80-94); Mean Platelet Volume 10.6 fL (7.4-10.4); Monocytes # 0.7 10^3/uL (0.2-0.9); Monocytes % 8.9 %; Neutrophils # 4.2 10^3/uL (1.8-7.7); Neutrophils % 56.6 %; Nucleated Red Blood Cells % 0 %; Platelet Count 342 10^3/cmm (130-400); Red Blood Count 4.85 10^6/uL (4.1-5.3); Red Cell Distribution Width 15.1 % (12.1-15.1); White Blood Count 7.4 10^3/uL (4.0-10.0)
[2020-01-25 10:26] LABS: Alanine Aminotransferase 14 U/L (0-41); Albumin Level 4.5 g/dL (3.5-5.2); Alkaline Phosphatase 68 IU/L (40-130); Anion Gap 19.1 (5-19); Aspartate Amino Transferase 15 U/L (0-40); Blood Urea Nitrogen 19 mg/dL (8-23); Carbon Dioxide 22 mmol/L (22-29); Chloride 99 mmol/L (98-107); Globulin 3.3 g/dL (1.3-4.6); Glucose 122 mg/dL (65-115); Osmolality Calculated 280 mOsm/kg (285-295); Potassium 4.1 mmol/L (3.5-5.1); Sodium 136 mmol/L (136-145); Total Bilirubin 0.3 mg/dL (0.15-1.2); Total Protein 7.8 g/dL (6.6-8.7)
== END 2020-01-25 09:07 | disposition home or self-care (01) ==
LOC: ONCMED 09:11
PROVIDERS: PCP Nurse Practitioner; Visit Provider Internal Medicine Hematology & Oncology
DX: C61 Malignant neoplasm of prostate (principal); N40.0 Benign prostatic hyperplasia without lower urinary tract symptoms; E11.9 Type 2 diabetes mellitus without complications
CPT/HCPCS: 80053; 81001; 84153; 85025

== ENCOUNTER 2020-01-28 09:01 | Outpatient (CLI) | payer MEDICARE, OTHER, SELFPAY ==
[2020-01-28] MEDS: goserelin acetate 10.8 mg Implant IM (10:20)
[2020-01-28 12:08] LABS: Add Urine Microscopic? YES; Bilirubin Urine Neg (NEGATIVE); Blood Urine 3+ (Negative); Glucose Urine UA Norm (Normal); Ketones Urine Negative (Negative); Leukocyte Esterase Urine 2+ (Negative); Nitrate Urine Negative (Negative); Protein Urine 3+ (Negative); Urine Appearance Cloudy (CLEAR); Urine Color Yellow (Yellow); Urobilinogen Urine Norm (Negative)
[2020-01-28 12:36] LABS: Add Urine Culture? Yes; Bacteria Urine 1+; RBC Urine 25-40 /hpf (0-2); Squamous Epithelial Cell Urine 0-4 (0-5); WBC Urine 15-25 /hpf (0-5)
--- NOTE | 2020-01-28 16:35 | ONC FU_ITS ---
Dr. Alcazar follow up note Patient: Alex Kauffman Unit #: [id number]: 1940 Dicatated By: Tom Alcazar M.D.Date of Visit:Jan 28, 2020 Onc Med Follow-up/Prog Note History of Present Illness: Mr. Kauffman is a 79-year-old gentleman with long-standing history of prostate cancer. Initially, he was diagnosed with prostate cancer in May 2000. At that time, his PSA was 9 and a biopsy showed 2+ 2/3+4/3+3 with the largest volume equal 3+4. Underwent radical retropubic prostatectomy in June 2000. He was followed with PSA postoperatively and during follow-up it was noted his PSA was increasing but slowly. Finally in 2010 it was felt he needed further treatment. He was treated with radiation therapy which he completed in March 2011. It showed good response with PSA down to 0.05. During follow-up in November 2012, his PSA gone up to 0.21; in May 2013 up to 0.35 and in November 2013 it was 0.93. In February 2015, he underwent cystoscopic examination found to have local recurrence. It was resected and confirmed to be poorly differentiated prostate cancer. At that time he was started on combined androgen blockade postop. His treatment was complicated by recurrent hematuria and burning micturition. Follow-up lab showed a gradual increase in his PSA level and from 07/06/2017 it was 2.5 earlier while on combined androgen blockade. On 12/21/2017, he underwent cystoscopy with transurethral resection of a bladder lesion, cystourethroscopy with placement of ureteral stent on left side and dilation of urethra. 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 Mr Kauffman has had persistent urine tract infection and recently finished course of Levaquin. Repeat urinalysis on 02/16/2018 showed persistent urine tract infection: leukoesterase positive and persistent RBCs and WBCs on microscopic evaluation. Mr Kauffman reported he did notice pus drops every time after he finish his urination. His case was discussed with Dr. Lloyd, urologist, and he was referred for possible cystoscopy to rule out postsurgical abscess or other source of infection- before we started chemotherapy. Mr Kauffman reported that he has seen Dr. Lloyd. Dr Lloyd replaced the urinary stent and did notice lots of urinary debris. Mr Kauffman was started on long-term antibiotics with Hiprex 1 g by mouth daily. He began his first dose of docetaxel on 03/14/2018. He was not given Neulasta as he did not have insurance approval at the time of chemotherapy. He did have significant neutropenia on day 8 with an ANC of 600. He did not have symptoms and gradually recovered. He did qualify for Neulasta administration with cycle 2 and Concluded his chemotherapy e.g. 6 doses on 06/27/2018 Went to [facility] on 09/07/2018 and as per patient his patient was started on Zytiga/prednisone for one year in addition to Zoladex every 3 months as scans done at [facility] showed excellent response to chemotherapy but persistent lung nodule and pelvic lesion and his PSA done there was around 1. We will obtain follow-up note from [facility] and review. Patient denies any fever chills denies any nausea or vomiting denies any pelvic pain, denies any dysuria or hematuria. On 09/21/2018 patient had left ureteral stent replacement. Patient went to [facility] for follow-up on 12/25/2018 and had choline C 11 scan done, when compared with one from 09/07/2018, showed increased choline uptake is again seen in the prostatectomy bed on the left and involving the posterior bladder base is essentially unchanged from the previous scan. The small lymph nodes with choline uptake seen on the previous scan are unchanged. The pulmonary infiltrate have decreased. No new sites of abnormal choline uptake are noted Tolerating ADT with Zoladex and Zytiga/prednisone well Patient went to [facility] for follow-up on 06/29/2019. He underwent PET/CT choline which showed likely tumor at the left of urethral vesicle junction has SUV of 4.5 compared to 3.4 on 12/25/2018. Nonspecific activity to the right of urethrovesical junction has SUV of 1.8 compared to 2.1 previously. Likely tumor involving left sided urinary bladder including the left ureterovesical junction has SUV of 6.2 compared to 6.6 previously. Likely metastatic activity in the proximal right external iliac lymph node has SUV of 2.6 versus 2.2 previously. Nonspecific activity along the right common iliac vessels and adjacent to lumbar degenerative changes as current SUV of 2.9 versus 2.1 previously and his PSA was 2.[address] Best recommended continue with Zoladex but discontinue Zytiga and taper off prednisone and initiate xtandi and choline And underwent follow-up CT PET on December 27, 2019 at [facility] which showed disease progression when compared with scan done on June 28, 2019 and showed malignant appearing choline activity along the urinary bladder oneal has increased,, prominent disease in the left UVJ region has current SUV of 9.7 versus 6.2 on June 2019. Metastatic appearing nodularity in the fat to the right of the urinary bladder anteriorly has increased. Approximate 1.7 x 1.3 cm right external iliac node measuring 0.7 x 0.5 cm on June 28, 2019 and now with SUV of 6 compared to 2.6 at that time. A likely metastatic right common iliac node now measures 1.8 x 1.2 cm versus 1 x 0.7 cm on June 28, 2019. Multiple nodes in the thorax shows interval increase activity compared to June 28, 2019, these are nonspecific could be due to granulomatous inflammation. As far as his left pelvic pain is concern, which is under control and left nephrostomy tube was suggested rather than continuing with ureteral stent exchanges every couple of months. Patient was seen by Dr. best and MSI/BRCA 1 and 2 were checked and both came back negative so no role of immunotherapy with pembrolizumab and olaparib. Clinical trial was also considered but considering patient's age and overall condition, further chemotherapy with cabazitaxel was recommended and patient agreed. And he was advised to continue Xtandi until cabazitaxel is planned. Came for follow-up, denies any specific complaint, no fever chills, no nausea or vomiting, no diarrhea or constipation, mild neuropathy involving feet, as per patient with lotion used it improves patient also has history of diabetes and diabetic induced neuropathy. Denies any hematuria or dysuria. Denies any abdominal pain no new bony pains. Appetite is good. Came for follow-up, denies any specific complaints, no fever or chills, no nausea or vomiting, no hematuria, recently underwent left ureteral stent replacement and Dr. Lloyd is managing it. Patient said his pelvic pain is under control with current pain medication. And complaining of off and on night sweats otherwise tolerating ADT with Zoladex well and also tolerating xtandi well Medications: AZO Yeast Plus 1 Tablet Oral daily PRN, Hiprex 1 Tablet (of 1 G) Oral b.i.d., MetFORMIN HCl 1 Tablet (of 500 mg) Oral daily, oxyCODONE-Acetaminophen 1 Tablet (of 5-325 mg) Oral q 4 to 6 hours PRN, Vitamin C 1 Tablet (of 1 G) Oral daily Allergies: Cipro, Penicillins, and Sulfa Antibiotics. Review of Systems: Constitutional - Appetite is good and weight is stable. No fever, chills, hot flashes, or night sweats. Energy level is fair, ENMT - No sinus congestion/drainage. No mouth sores. No sore throat or difficulty swallowing, Hematologic/Lymphatic - No abnormal bruising or bleeding, Respiratory - Shortness of breath with exertion. No cough. No pleuritic pain or hemoptysis, Cardiovascular - No angina pain. No palpitations, Gastrointestinal - No nausea or vomiting. No heartburn or acid reflux. No diarrhea or constipation. No blood in the stool or black stools, Genitourinary (M) - Patient reports dysuria. No hematuria. No urinary frequency. Occasional urgency and incontinence, Musculoskeletal - No joint or bone pain, Neurologic - No headache or dizziness. No numbness/paresthesias or other focal neurologic symptoms, Psychiatric - No anxiety or depression. No insomnia. Vital Signs: Performed on Jan 28, 2020 09:18 Height - 67.00 in Weight - 214.8 lbs (LOW) BSA - 2.08 sq.m BMI - 33.64 (HIGH) Temperature - 97.2 F (LOW) Pulse - 73 /min Respiration - 24 /min BP - 128/76 mm(hg) O2 Sat - 97 % Pain - 0 Performance Status: 0 - Fully active, able to carry on all predisease activities without restrictions. (ECOG) Physical Examination: ENMT - No mouth sores, no thrush or jaundice, Respiratory - Lungs are clear, Cardiovascular - Regular rate and rhythm of heart, Abdomen - Soft, bowel sounds present, Extremities - No edema. Lab/Imaging: Test performed on Oct 12, 2019 10:20 Sodium 139 mmol/L Potassium 3.9 mmol/L Chloride 99 mmol/L CO2 24 mmol/L Anion Gap 19.9 BUN 22 mg/dL Creatinine 0.9 mg/dL Cr Clearance (Est) 94.7900 mL/min Glucose 136 mg/dL Calcium 10.3 mg/dL Protein, Total 8.0 g/dL Albumin 4.3 g/dL Globulin 3.7 g/dL Bilirubin, Total 0.3 mg/dL ALT (SGPT) 14 U/L AST (SGOT) 13 U/L Alkaline Phosphatase 68 IU/L PSA 3.61 ng/mL Impression: Recurrent prostate cancer status post cystoscopy and excision in February 2015 followed by combined androgen blockade with Zoladex and Casodex. Now with gradual increasing PSA , While on combined androgen blockade Initially he was diagnosed prostate cancer in 1999- at that time he underwent retropubic radical prostatectomy. Status post radiation therapy in 2010 for increasing PSA and lymphadenopathy. Hematuria/dysuria since February 2015. CT scan of abdomen pelvis done on 03/02/2018 showed soft tissue mass measuring 2.2 cm x 3.2 x 2.9 in the expected location of the prostate inseparable from the urinary bladder floor urinary bladder wall is diffusely thickened and there is a soft tissue attenuation between the soft tissue mass in the anterior infra levator rectal wall, rectal lesion not excluded Seen by Dr. Edwards on 10/24/2017 and his impression was changes in the rectum are probably due to prostate invasion rather than primary rectal lesion. 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 Mr Kauffman was seen by Dr Lloyd for persistent UTI symptoms post op and was placed on intermediate antibiotics. His symptoms resolved and he began recommended chemotherapy with docetaxel on 03/14/2018. Mr. Kauffman has tolerated the chemotherapy relatively well. He did have chemotherapy-induced neutropenia on day 8 of cycle 1. His initial ANC at time of treatment on 03/14/2018 was 13,300 on day 8 his ANC was 600[address] PET scan done on 05/06/2018 showed no evidence for recurrent or residual malignancy., Tiny scattered pelvic nodes are radiographically benign and FDG negative, no findings to indicate osseous metastatic disease and left-sided hydronephrosis is present and a ureteral catheter is in place. PSA checked on 05/15/2018 showed 1.81 compared to 6.49 on 03/14/2018 when chemotherapy with Taxotere was started And concluded his chemotherapy with Taxotere e.g. 6 doses on 06/27/2018 Status post left ureteral stent placement on 05/22/2018 Again replaced on 09/21/2018 Went to [facility] on 09/07/2018,Choline C 11 scan done on 09/07/2018 showed large choline avid recurrence in the prostatectomy bed involving the posterior bladder base has improved since prior exam, however suspicious new small focus of choline avid disease along the right posterior bladder wall. New choline avid node metastatic disease including a right supraclavicular node. And increasing pulmonary infiltrate and/or atelectasis in the posterior lower lobes with reactive choline activity. so he was started on Zytiga/prednisone for one year along with an 3 monthly Zoladex. Went to [facility] on 12/25/2018 and had choline C 11 scan done on same date showed when compared with choline scan done on 09/07/2018, increased choline uptake is seen again in the prostatectomy bed on the left and involving the posterior bladder base is essentially unchanged from the previous scan. The small lymph nodes with choline uptake seen on the previous scans are unchanged the pulmonary infiltrates have decreased. No new sites of abnormal choline uptake are noted. Plan: Discussed with patient regarding his labs white blood count 7.4 hemoglobin 13.8 hematocrit 44.8 platelets 342,000 CMP within normal limits and 6.50 compared to 6.1 recently Clinically, patient is doing reasonably well now with disease progression confirmed with CT PET choline and progressive PSA, patient went to [facility] for follow-up and now palliative chemotherapy with cabazitaxel is recommended. Patient on Xtandi, tolerating well but now with progressive disease and is also on 3 monthly Zoladex. At this point will discontinue Xtandi and role of cabazitaxel was discussed all the side effects possible benefits including but not limited to allergic reaction, diarrhea, bone marrow suppression were mentioned further teaching done by chemotherapy nurse, patient is already aware of related side effects. At this point will consider cabazitaxel 20 mg/m??? every 3 weeks along with Neulasta to prevent chemotherapy-induced neutropenia as patient is a high risk. And patient will receive 4 cycles of chemotherapy as recommended by [facility] and then he will go to clinic for follow-up evaluation including scans. Patient was advised to discontinue Xtandi today in the meantime we will proceed with his 3 monthly Zoladex today and then patient will return to clinic once we have approval for cabazitaxel. And he will return to clinic 1 week after chemotherapy is initiated with CBC CMP. Signed By: Tom Alcazar M.D. <<Signature on File>>
== END 2020-01-28 09:02 | disposition home or self-care (01) ==
PROVIDERS: PCP Nurse Practitioner; Visit Provider Internal Medicine Hematology & Oncology
DX: C61 Malignant neoplasm of prostate (principal); R97.21 Rising PSA following treatment for malignant neoplasm of prostate; R10.2 Pelvic and perineal pain; E11.40 Type 2 diabetes mellitus with diabetic neuropathy, unspecified; Z90.79 Acquired absence of other genital organ(s); Z79.818 Long term (current) use of other agents affecting estrogen receptors and estrogen levels; Z96.0 Presence of urogenital implants; Z79.899 Other long term (current) drug therapy; Z92.3 Personal history of irradiation; Z79.891 Long term (current) use of opiate analgesic
CPT/HCPCS: 81001; 87086; 96372; 96402; 99214; J9202

== ENCOUNTER 2020-02-14 05:55 | Day surgery (SDC) | payer MEDICARE, OTHER, SELFPAY ==
[2020-02-08 09:34] VITALS: BMI 33.0
--- NOTE | 2020-02-14 | SCC_ITS ---
Procedure Done: Right subclavian vein PowerPort placement under fluoroscopic guidance with all interpretation was done by me through the whole entire procedure 43.8 seconds of fluoroscopic guidance, for a cumulative dose of -=7.36 mGy, was provided to Dr. Caballero by the radiology department. C-arm images of the chest were saved for the patient's permanent record. [facility]
[2020-02-14 06:02] VITALS: BP 162/83; PULSE 79; RESP 18; TEMP 36.4; O2SAT 98
[2020-02-14] MEDS: sodium chloride 0.9% 1,000 ML 30 ML IV (06:21)
--- NOTE | 2020-02-14 06:21 | ANES.PREANE2 ---
Pre-Anesthetic Assessment Pre-Anesthetic Assessment: Height/Weight: Height 1.73 m Weight 98.43 kg Temp Pulse Resp BP Pulse Ox 97.5 F L 79 18 162/83 98 02/14/20 06:02 02/14/20 06:02 02/14/20 06:02 02/14/20 06:02 02/14/20 06:02 Preop Diagnosis: Prostate cancer requiring long-term IV access Proposed Procedure: Operation Date: 02/14/20 07:00 Proposed Procedures p Portacath Placement 34039 C61(Not Applicable) - Jamin Caballero MD Familial anesthetic complications: None Was Beta Jasmine taken within 24 hours: N/A Last intake: Intake Last Liquid Date 02/13/20 Last Liquid Time 20:00 Last Solid Date 02/13/20 Last Solid Time 21:30 Social: Social History: No alcohol and No tobacco Exam: Pre-Anes Outpt Exam: alert, oriented x 3, clear to auscultation bilaterally and regular rate & rhythm Airway: Cervical ROM: WNL MP: 3 Dentition: False Additional comments: missing teeth Pulmonary: Pulmonary: None reported : Comments: Cystitis prostate cancer Metabolic: Metabolic: DM Anesthetic Plan: ASA status: 2 Anesthesia: MAC Risk of > 500 ml blood loss (7ml/kg in children): No Meds/Allergies Current Medications: Current Medications Generic Name Dose Route Start Last Admin Trade Name Freq PRN Reason Stop Dose Admin Sodium Chloride 1,000 mls @ 30 ml s/hr 02/14/20 06:00 02/14/20 06:21 Sodium Chloride 0.9% IV 02/15/20 05:59 30 mls/hr .Q24H EBER Administration PFSH Anesthesia PFSH: Medical History Chronic cystitis Extrinsic ureteral obstruction Male stress incontinence Prostate cancer Surgical History History of radical retropubic prostatectomy Hx of transurethral destruction of bladder lesion S/P right knee surgery Status post placement of ureteral stent Family History Mother , in her 70's CAD (coronary artery disease) Father , in his 80's No problems noted. Social History Smoking and tobacco status: never smoked Alcohol intake: never Adopted: No Caregiver/support person: No Lives independently: No Household members: spouse Marital status: Current occupational status: retired History of recent travel: No Data Anesthesia Cardiac Studies: No Data to Display
[2020-02-14 06:22] LABS: Glucose Point of Care 134 mg/dL (70-110)
--- NOTE | 2020-02-14 06:30 | W.PM.OPSUD ---
Surgery/Procedure H&P Update DATE OF PROCEDURE: February 14, 2020 DATE H&P PERFORMED: 02/06/20 H&P UPDATE INFORMATION: I have reviewed H&P completed within last 30 days, I have examined patient prior to procedure and No changes to prior documentation PREOP DIAGNOSIS: Prostate cancer requiring long-term IV access PRIMARY INDICATION FOR PROCEDURE: The same PLANNED PROCEDURE: Operation Date: 02/14/20 07:00 Proposed Procedures p Portacath Placement 83022 C61(Not Applicable) - Jamin Caballero MD
--- NOTE | 2020-02-14 06:40 | SC_ITS ---
WS: [id number] INTRAOPERATIVE TECHNIQUE: 3 Spot fluoroscopic images for intraoperative purposes. FLUOROSCOPY TIME: 43.8 seconds CLINICAL INFORMATION: portacath placement COMPARISON: None. FINDINGS: Right Port-A-Cath tip in the SVC. No visualized pneumothorax. SC/C-arm FL for CVA [id number] IMPRESSION: Images obtained for intraoperative purposes.
[2020-02-14] MEDS: clindamycin 600 MG/50 ML PREMIX 100 MG IV (06:56)
[2020-02-14] MEDS: lidocaine 2% INJ 20 mL INJECTION (07:16)
[2020-02-14] MEDS: heparin, porcine 1,000 unit/mL INJ 10 mL 10000 UNIT IRRIGATION (07:26)
[2020-02-14] MEDS: heparin 5,000 unit/mL INJ 1 mL 5000 UNIT IRRIGATION (07:44)
--- NOTE | 2020-02-14 07:49 | PM.OP ---
Operative Report Date of procedure: February 14, 2020 Pre-op Diagnosis: Prostate cancer requiring long-term IV access Post-op diagnosis: same Procedure Done: Right subclavian vein PowerPort (Port-A-Cath)placement under fluoroscopic guidance with all interpretation was done by me through the whole entire procedure Implants: PowerPort Surgeon: Jamin Caballero Student Services Vice President: Lindsay Almendarez Anesthesia: MAC (Denae Mtz) Estimated blood loss (mL): 10 Condition: stable Disposition: same day Brief History: This is a pleasant 79 years old gentleman diagnosed with prostate cancer requiring long-term IV access, patient was referred to my practice for consultation . plan of care; After thorough history physical examination and reviewing the chart, I counseled the patient for Port-A-Cath placement, indications, risks including pneumothorax and injury of major vascular structures, benefits,indications and alternatives were all discussed with the patient, patient understands and is interested to proceed. Rationale was carefully and clearly discussed with the patient.Appropriate informed consent have been reviewed and signed. Procedure: Patient was identified in the holding area and taken to the operative room and placed in supine position IV propofol was given by the anesthesia provider ,both arms were tucked,Time-out was done verifying the patient's name/date of /planned procedure and destination after the procedure, all were in agreement. SCDs confirmed to be functioning, preoperative antibiotics administered per protocol, and beta kofi protocol was confirmed, appropriate positioning of the patient was done by me. Medications were reviewed to assess for anticoagulant usage. Risks and benefits and prevention of central line associated blood stream infection (CLABSI) were discussed with the patient/CPOA, and a consent was obtained. Monitors were in place and monitored throughout the procedure. All necessary supplies were available prior to start. Hand hygiene was completed prior to starting. Maximum barrier technique was utilized including a sterile gown, sterile gloves with a hat and mask. Site was was prepped with [chlorhexidine] and a full body drape was placed. 5 mL of 2% lidocaine was injected into the skin with a 25 gauge needle. Prep& drape was done under the usual sterile technique, lidocaine 2% was injected at the site of the stick, started by right subclavian stick that retrieved venous blood was obtained from the first stick, a guidewire was then threaded and under the guidance of fluoroscopy position was confirmed to be in the IVC and my interpretation, there was no PVC changes, at that point the guidewire was secured to the drapes with a hemostat and the needle was taken out, attention was then deviated towards creation of a pocket for the port were lidocaine 2% was injected using an 15 blade knife skin incision was created dissection using the Bovie to create a pocket for the Port-A-Cath to be accommodated, hemostasis was secured, after the port being appropriately flushed it was inserted into the pocket and a tunneler was used to accommodate the catheter of the port cath to be delivered through the incision first created at the site of the stick, at that point under fluoroscopy an estimated length was measured for the catheter and was cut at the designed level, followed by that a dilator with the sheath introduced onto the guidewire the dilator and the wire were retrieved and the catheter of the port was introduced via the sheath where it was peeled off and the catheter maintained to be in the SVC that was confirmed with fluoroscopy, and the fluoroscopy interpretation was done by me throughout the entire procedure. The port was stated in appropriate position in the right upper chest pocket was created prior, 3-0 Vicryl deep subdermal interrupted sutures,skin was then closed by 4-0 Monocryl as subcuticular closure. The stick site was closed by3/0 Vicryl and surgical glue was used followed by dressing. Patient tolerated the procedure well was taken to the recovery area Count was correct at the end of the procedure I was present for the whole entire procedure Position of the catheter was checked with a postoperative chest x-ray and it was in good position without evidence of pneumothorax
--- NOTE | 2020-02-14 07:55 | XR_ITS ---
WS: [id number] CHEST XRAY TECHNIQUE: Portable chest. CLINICAL INFORMATION: Status post right subclavian vein PowerPort placement COMPARISON: None. FINDINGS: Right Port-A-Cath with tip in the SVC/RA junction. Heart: Cardiomegaly. Lungs: Moderate chronic emphysematous changes. No acute pulmonary infiltrates. Bones: Hypertrophic changes thoracic spine. XR/XR chest 1V portable [id number] IMPRESSION: RIGHT PORT-A-CATH WITH TIP IN THE SVC/RA JUNCTION. NO PNEUMOTHORAX.
[2020-02-14 08:09] VITALS: BP 142/66; PULSE 66; RESP 18; TEMP 36.5; O2SAT 98
[2020-02-14 08:32] VITALS: BP 106/74; PULSE 62; RESP 18; O2SAT 99
== END 2020-02-14 08:47 | disposition home or self-care (01) ==
PROVIDERS: PCP Nurse Practitioner; Visit Provider Surgery
PROC: (CPT 36561; principal; 2020-02-14 07:00)
DX: C61 Malignant neoplasm of prostate (principal); E11.9 Type 2 diabetes mellitus without complications; Z79.84 Long term (current) use of oral hypoglycemic drugs; Z82.49 Family history of ischemic heart disease and other diseases of the circulatory system
CPT/HCPCS: 36561; 12345; 36416; 71045; 77001; 82962; 96365; C1788; J1644; J2001; J2704; J3010; J3490; J7030

== ENCOUNTER 2020-03-13 05:59 | Outpatient (RCR) | payer MEDICARE, OTHER, SELFPAY ==
[2020-02-20 10:55] LABS: Basophils % 0.6 %; Eosinophils # 0.4 10^3/uL (0.0-0.8); Eosinophils % 5.9 %; Hematocrit 41.8 % (42.0-52.0); Hemoglobin 12.9 g/dL (11.7-16.6); Lymphocytes # 1.8 10^3/uL (0.8-4.8); Lymphocytes % 27.3 %; Mean Corpuscular HGB Conc 30.9 g/dL (30.0-36.0); Mean Corpuscular Hemoglobin 28.2 pg (28.0-34.0); Mean Corpuscular Volume 91.5 fL (80-94); Mean Platelet Volume 10.2 fL (7.4-10.4); Monocytes # 0.7 10^3/uL (0.2-0.9); Monocytes % 10.3 %; Neutrophils # 3.7 10^3/uL (1.8-7.7); Neutrophils % 55.4 %; Nucleated Red Blood Cells % 0 %; Platelet Count 276 10^3/cmm (130-400); Red Blood Count 4.57 10^6/uL (4.1-5.3); Red Cell Distribution Width 14.2 % (12.1-15.1); White Blood Count 6.6 10^3/uL (4.0-10.0)
[2020-02-20 11:16] LABS: Alanine Aminotransferase 10 U/L (0-41); Alkaline Phosphatase 71 IU/L (40-130); Anion Gap 15.8 (5-19); Aspartate Amino Transferase 12 U/L (0-40); Blood Urea Nitrogen 17 mg/dL (8-23); Calcium 9.5 mg/dL (8.5-10.5); Carbon Dioxide 24 mmol/L (22-29); Chloride 102 mmol/L (98-107); Globulin 3.7 g/dL (1.3-4.6); Glucose 139 mg/dL (65-115); Osmolality Calculated 285 mOsm/kg (285-295); Potassium 3.8 mmol/L (3.5-5.1); Sodium 138 mmol/L (136-145); Total Bilirubin 0.2 mg/dL (0.15-1.2); Total Protein 7.7 g/dL (6.6-8.7)
[2020-02-21] MEDS: sodium chloride 0.9% 250 ML 999 ML IV (10:30)
[2020-02-21] MEDS: pegfilgrastim 6 mg/0.6 mL Kit (onpro) SUBCUT (12:11)
[2020-02-28 12:56] LABS: Hematocrit 42.8 % (42.0-52.0); Hemoglobin 13.3 g/dL (11.7-16.6); Mean Corpuscular HGB Conc 31.1 g/dL (30.0-36.0); Mean Corpuscular Hemoglobin 28.9 pg (28.0-34.0); Mean Corpuscular Volume 92.8 fL (80-94); Mean Platelet Volume 10.4 fL (7.4-10.4); Platelet Count 256 10^3/cmm (130-400); Red Blood Count 4.61 10^6/uL (4.1-5.3); Red Cell Distribution Width 14.6 % (12.1-15.1); White Blood Count 11.8 10^3/uL (4.0-10.0)
[2020-02-28 13:12] LABS: Alanine Aminotransferase 13 U/L (0-41); Albumin Level 4.4 g/dL (3.5-5.2); Alkaline Phosphatase 116 IU/L (40-130); Aspartate Amino Transferase 15 U/L (0-40); Blood Urea Nitrogen 15 mg/dL (8-23); Calcium 9.4 mg/dL (8.5-10.5); Carbon Dioxide 24 mmol/L (22-29); Chloride 104 mmol/L (98-107); Glucose 126 mg/dL (65-115); Osmolality Calculated 290 mOsm/kg (285-295); Sodium 141 mmol/L (136-145); Total Bilirubin 0.3 mg/dL (0.15-1.2); Total Protein 7.4 g/dL (6.6-8.7)
[2020-02-28 14:56] LABS: Slide Review Slide Review Perform
[2020-02-28 15:04] LABS: Absolute Segmented Neutrophil 6.1 10/cmm (1.6-7.1); Band Neutrophils Absolute 2.1 10^3/cmm (0.0-1.2); Lymphocytes 21 %; Segmented Neutrophils 52 %; Total Cells Counted 100 (0-100)
[2020-02-28 15:05] LABS: Absolute Eosinophils 0.2 10^3/cmm (0.0-0.7); Absolute Neutrophil 8.3 10^3/cmm (1.4-6.5); Eosinophils 2 %; Monocytes Absolute 0.8 10^3/cmm (0.1-0.6); Platelet Estimate Normal (Normal)
--- NOTE | 2020-03-03 11:55 | ONC FU_ITS ---
Jenna Kahn Patient Note Patient: Alex Kauffman Unit #: [id number]: 1940 Dictated By: Yesenia GordonDate of Visit: Feb 28, 2020 Onc MED Follow-Up/Prog Note Chief Complaint: Prostate cancer History of Present Illness: Mr. Kauffman is a 79-year-old gentleman with long-standing history of prostate cancer. Initially, he was diagnosed with prostate cancer in May 2000. At that time, his PSA was 9 and a biopsy showed 2+ 2/3+4/3+3 with the largest volume equal 3+4. Underwent radical retropubic prostatectomy in June 2000. He was followed with PSA postoperatively and during follow-up it was noted his PSA was increasing but slowly. Finally in 2010 it was felt he needed further treatment. He was treated with radiation therapy which he completed in March 2011. It showed good response with PSA down to 0.05. During follow-up in November 2012, his PSA gone up to 0.21; in May 2013 up to 0.35 and in November 2013 it was 0.93. In February 2015, he underwent cystoscopic examination found to have local recurrence. It was resected and confirmed to be poorly differentiated prostate cancer. At that time he was started on combined androgen blockade postop. His treatment was complicated by recurrent hematuria and burning micturition. Follow-up lab showed a gradual increase in his PSA level and from 07/06/2017 it was 2.5 earlier while on combined androgen blockade. On 12/21/2017, he underwent cystoscopy with transurethral resection of a bladder lesion, cystourethroscopy with placement of ureteral stent on left side and dilation of urethra. 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 Mr Kauffman has had persistent urine tract infection and recently finished course of Levaquin. Repeat urinalysis on 02/16/2018 showed persistent urine tract infection: leukoesterase positive and persistent RBCs and WBCs on microscopic evaluation. Mr Kauffman reported he did notice pus drops every time after he finish his urination. His case was discussed with Dr. Lloyd, urologist, and he was referred for possible cystoscopy to rule out postsurgical abscess or other source of infection- before we started chemotherapy. Mr Kauffman reported that he has seen Dr. Lloyd. Dr Lloyd replaced the urinary stent and did notice lots of urinary debris. Mr Kauffman was started on long-term antibiotics with Hiprex 1 g by mouth daily. He began his first dose of docetaxel on 03/14/2018. He was not given Neulasta as he did not have insurance approval at the time of chemotherapy. He did have significant neutropenia on day 8 with an ANC of 600. He did not have symptoms and gradually recovered. He did qualify for Neulasta administration with cycle 2 and Concluded his chemotherapy e.g. 6 doses on 06/27/2018 He went to [facility] on 09/07/2018 and as per patient his patient was started on Zytiga/prednisone for one year in addition to Zoladex every 3 months as scans done at [facility] showed excellent response to chemotherapy but persistent lung nodule and pelvic lesion and his PSA done there was around 1. We will obtain follow-up note from [facility] and review. Patient denies any fever chills denies any nausea or vomiting denies any pelvic pain, denies any dysuria or hematuria. On 09/21/2018 patient had left ureteral stent replacement. Mr Kauffman went to [facility] for follow-up on 12/25/2018 and had choline C 11 scan done, when compared with one from 09/07/2018, showed increased choline uptake is again seen in the prostatectomy bed on the left and involving the posterior bladder base is essentially unchanged from the previous scan. The small lymph nodes with choline uptake seen on the previous scan are unchanged. The pulmonary infiltrate have decreased. No new sites of abnormal choline uptake are noted. He was Tolerating ADT with Zoladex and Zytiga/prednisone well. He went to [facility] for follow-up on 06/29/2019. He underwent PET/CT choline which showed likely tumor at the left of urethral vesicle junction has SUV of 4.5 compared to 3.4 on 12/25/2018. Nonspecific activity to the right of urethrovesical junction has SUV of 1.8 compared to 2.1 previously. Likely tumor involving left sided urinary bladder including the left ureterovesical junction has SUV of 6.2 compared to 6.6 previously. Likely metastatic activity in the proximal right external iliac lymph node has SUV of 2.6 versus 2.2 previously. Nonspecific activity along the right common iliac vessels and adjacent to lumbar degenerative changes as current SUV of 2.9 versus 2.1 previously and his PSA was 2.5. Bbased on these findings, Dr. Lewis recommended continue with Zoladex but discontinue Zytiga and taper off prednisone. Initiate xtandi and choline And underwent follow-up CT PET on December 27, 2019 at [facility] which showed disease progression when compared with scan done on June 28, 2019 and showed malignant appearing choline activity along the urinary bladder oneal has increased,, prominent disease in the left UVJ region has current SUV of 9.7 versus 6.2 on June 2019. Metastatic appearing nodularity in the fat to the right of the urinary bladder anteriorly has increased. Approximate 1.7 x 1.3 cm right external iliac node measuring 0.7 x 0.5 cm on June 28, 2019 and now with SUV of 6 compared to 2.6 at that time. A likely metastatic right common iliac node now measures 1.8 x 1.2 cm versus 1 x 0.7 cm on June 28, 2019. Multiple nodes in the thorax shows interval increase activity compared to June 28, 2019, these are nonspecific could be due to granulomatous inflammation. As far as his left pelvic pain is concern, which is under control and left nephrostomy tube was suggested rather than continuing with ureteral stent exchanges every couple of months. Mr Kauffman was seen by Dr. Lewis and MSI/BRCA 1 and 2 were checked and both came back negative- so no role of immunotherapy with pembrolizumab and olaparib. Clinical trial was also considered but considering patient's age and overall condition, further chemotherapy with cabazitaxel was recommended and patient agreed. And he was advised to continue Xtandi until cabazitaxel is planned. Mr Kauffman began his first cycle of cabazitaxel on February 21, 2020. His Zoladex was last given on 01/28/2020. Mr. Kauffman is here today for follow-up. This is day 8 of cycle 1. He well overall. His only concern is that he has developed a new rash in both axilla but left is worse than the right. Rash is noted to have some brown pigmentation in the top of the axilla area and redness in the lower area. No vesciles or wheels, slight raised lesions. He states it is not really itching, but occasionally does itch some. It is not painful but some tenderness on deep palpation. It started about 4-5 days ago and has not gotten worse, but not improving much either. He denies any changes with soap, deodorant, lotions, laundry detergent or fabric softener. He cannot identify any particular trigger trigger but did notice that after the Jevtana treatment. He denies any fever or chills. Nausea nausea or vomiting. He states his appetite is good. His energy is good. He denies any chest pain or palpitations. He denies any shortness of breath orthopnea. He states his bowels and bladder are normal for him. He denies any new pain. His ECOG is 1. Past Medical History: Type II diabetes Past Surgical History: Colonoscopy Radical retropubic prostatectomy Right knee surgery Left kidney stent replacement in 2019 Kidney stent replacement in 2018 Kidney stent replacement in 2018 Stent replacement is done every 2 monthes Allergies: Cipro, Penicillins, and Sulfa Antibiotics. Medications: AZO Yeast Plus 1 Tablet Oral daily PRN Hiprex 1 Tablet (of 1 G) Oral b.i.d. MetFORMIN HCl 1 Tablet (of 500 mg) Oral daily oxyCODONE-Acetaminophen 1 Tablet (of 5-325 mg) Oral q 4 to 6 hours PRN Vitamin C 1 Tablet (of 1 G) Oral daily Family History: Mr. Kauffman's mother at age 75. Mr. Kauffman's father at age 87. Mr. Kauffman has 2 brothers: 2 . Mr. Kauffman's first brother's polio. Another brother's coronary artery disease. Social History: Mr. Kauffman is and he is retired. Mr. Kauffman no longer smokes. He has no history of drinking. He has indicated exposure to the following products: chewing tobacco. Mr. Kauffman reports the following support systems: lives with spouse, significant other, family, or friends. His diet consists of regular meals. formerly chewed tobacco, quit in 2000. Review Of Symptoms: Constitutional Denies fevers, chills, night sweats, excessive fatigue or weight loss. Allergic/Immunologic No reactions. Eyes Denies significant visual changes. No diplopia. No amaurosis. ENMT Denies changes in hearing, sore throat, mouth sores, difficulty or changes in swallowing ability, and/or sinus drainage. Endocrine No diabetes, thyroid disease or hormone replacement. Denies hot flashes or night sweats. Hematologic/Lymphatic Denies easy bruising or bleeding. The patient denies any tender or palpable lymph nodes. Respiratory Denies dyspnea on exertion, chest pain, cough or hemoptysis. Denies orthopnea. Cardiovascular Denies anginal chest pain, palpitations or orthopnea. Gastrointestinal Denies nausea, vomiting, diarrhea, GI bleeding, or constipation. Denies change in bowel habits and/or stool color, no heartburn or early satiety. Genitourinary (M) Denies hematuria, dysuria. He has increased frequency but is improved overall. He does have occasional incontinence. Musculoskeletal Denies joint pain, swelling or redness. No decreased range of motion. Integumentary Denies chronic rashes, inflammation, ulcerations or skin changes. Has new rash in both axilla but left is worse than the right. Rash is noted to have some brown pigmentation in the top of the axilla area and redness in the lower area. No vesicles or wheels, slight raised lesions. He states it is not really itching, but occasionally does itch some. It is not painful but some tenderness on deep palpation. It started about 4-5 days ago and has not gotten worse, but not improving much either. He denies any changes with soap, deodorant, lotions, laundry detergent or fabric softener. He cannot identify any particular trigger trigger but did notice that after the Jevtana treatment. Neurologic Denies headache, blurred vision, and no areas of focal weakness or numbness. Normal gait. No sensory problems. Psychiatric Denies insomnia, depression, sherrill or mood swings. Vital Signs: Performed on Feb 28, 2020 14:59 Height - 67.00 in Weight - 218.8 lbs (HIGH) BSA - 2.10 sq.m BMI - 34.27 (HIGH) Temperature - 97.7 F (LOW) Pulse - 84 /min Respiration - 19 /min BP - 160/81 mm(hg) (HIGH) O2 Sat - 95 % (LOW) Pain - 0,1 - No physically strenuous activity, but ambulatory and able to carry out light or sedentary work (e.g. office work, light house work). (ECOG) Physical Examination: Constitutional Alert, oriented, no acute distress. Skin pink, warm and dry. Denies fever or chills. Head Normocephalic; atraumatic. Eyes Conjunctivae and sclerae are clear and without icterus. Pupils are reactive and equal. Neck Supple without masses or thyromegaly. No jugular venous distension. Hematologic/Lymphatic No petechiae or purpura. No tender or palpable lymph nodes in the cervical or supraclavicular areas. Respiratory Lungs are clear to auscultation without rhonchi or wheezing. Cardiovascular Regular rate and rhythm of heart without murmurs,clicks, gallops or rubs. Breasts Abdomen Non-tender, non-distended, no masses, or ascites. Good bowel sounds noted in all quads. No guarding or rebound tenderness. No pulsatile masses. Back/Spine Non-tender to palpation. Extremities No visible deformities, no cyanosis, clubbing or edema. Pulses 4+ and equal bilaterally. Musculoskeletal No tenderness or swelling, normal range of motion without obvious weakness. Integumentary Has new rash in both axilla but left is worse than the right. Rash is noted to have some brown pigmentation in the top of the axilla area and redness in the lower area. No vesicles or wheels, slight raised lesions. He states it is not really itching, but occasionally does itch some. It is not painful but some tenderness on deep palpation. It started about 4-5 days ago. Neurologic No sensory or motor deficits, normal cerebellar function, normal gait. Psychiatric Alert and oriented times three. Coherent speech. Verbalizes understanding of our discussions today. Laboratory:Test performed on Feb 28, 2020 12:26 Sodium 141 mmol/L Potassium 4.0 mmol/L Chloride 104 mmol/L CO2 24 mmol/L Anion Gap 17.0 BUN 15 mg/dL Creatinine 0.9 mg/dL Cr Clearance (Est) 93.2200 mL/min Glucose 126 mg/dL Calcium 9.4 mg/dL Protein, Total 7.4 g/dL Albumin 4.4 g/dL Globulin 3.0 g/dL Bilirubin, Total 0.3 mg/dL ALT (SGPT) 13 U/L AST (SGOT) 15 U/L Alkaline Phosphatase 116 IU/L WBC 11.8 10 3/uL Manual Bands % 18.0 % RBC 4.61 10 6/uL HGB 13.3 g/dL Manual Lymphs % 21 % HCT 42.8 % Manual Monos % 7.0 % MCV 92.8 fL MCH 28.9 pg MCHC 31.1 g/dL RDW 14.6 % Platelet Count 256 10 3/cmm MPV 10.4 fL CBC Slide Review Slide Review Perform Manual Bands Abs 2.1 10 3/cmm Manual Neutrophils Abs 8.3 10 3/cmm Manual Monocytes Abs 0.8 10 3/cmm Manual Eosinophils Abs 0.2 10 3/cmm Test performed on Jan 28, 2020 10:25 Ua Micro: WBC 15-25 /hpf Ua Micro: RBC 25-40 /hpf Ua Micro: Squam Epith Cells 0-4 Ua Micro: Bacteria 1+ Test performed on Jan 25, 2020 09:18 Neutrophils 4.2 10 3/uL Lymphocytes 2.2 10 3/uL Monocytes 0.7 10 3/uL Eosinophils 0.3 10 3/uL Basophils 0.0 10 3/uL Neutrophil % 56.6 % Lymphocyte % 29.8 % Monocyte % 8.9 % Eosinophil % 3.9 % Basophils % 0.5 % NRBC % 0 % PSA 6.500 ng/mL Impression: ..Recurrent prostate cancer status post cystoscopy and excision in February 2015 followed by combined androgen blockade with Zoladex and Casodex. Now with gradual increasing PSA , While on combined androgen blockade Initially he was diagnosed prostate cancer in 1999- at that time he underwent retropubic radical prostatectomy. Status post radiation therapy in 2010 for increasing PSA and lymphadenopathy. Hematuria/dysuria since February 2015. CT scan of abdomen pelvis done on 03/02/2018 showed soft tissue mass measuring 2.2 cm x 3.2 x 2.9 in the expected location of the prostate inseparable from the urinary bladder floor urinary bladder wall is diffusely thickened and there is a soft tissue attenuation between the soft tissue mass in the anterior infra levator rectal wall, rectal lesion not excluded Seen by Dr. Edwards on 10/24/2017 and his impression was changes in the rectum are probably due to prostate invasion rather than primary rectal lesion. 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 Mr Kauffman was seen by Dr Lloyd for persistent UTI symptoms post op and was placed on alf antibiotics. His symptoms resolved and he began recommended chemotherapy with docetaxel on 03/14/2018. Mr. Kauffman has tolerated the chemotherapy relatively well. He did have chemotherapy-induced neutropenia on day 8 of cycle 1. His initial ANC at time of treatment on 03/14/2018 was 13,300 on day 8 his ANC was 600[address] PET scan done on 05/06/2018 showed no evidence for recurrent or residual malignancy., Tiny scattered pelvic nodes are radiographically benign and FDG negative, no findings to indicate osseous metastatic disease and left-sided hydronephrosis is present and a ureteral catheter is in place. PSA checked on 05/15/2018 showed 1.81 compared to 6.49 on 03/14/2018 when chemotherapy with Taxotere was started And concluded his chemotherapy with Taxotere e.g. 6 doses on 06/27/2018 Status post left ureteral stent placement on 05/22/2018 Again replaced on 09/21/2018 Went to [facility] on 09/07/2018,Choline C 11 scan done on 09/07/2018 showed large choline avid recurrence in the prostatectomy bed involving the posterior bladder base has improved since prior exam, however suspicious new small focus of choline avid disease along the right posterior bladder wall. New choline avid node metastatic disease including a right supraclavicular node. And increasing pulmonary infiltrate and/or atelectasis in the posterior lower lobes with reactive choline activity. so he was started on Zytiga/prednisone for one year along with an 3 monthly Zoladex. Mr Kauffman returned to the [facility] on 12/25/2018 and had choline C 11 scan done on same date showed when compared with choline scan done on 09/07/2018, increased choline uptake is seen again in the prostatectomy bed on the left and involving the posterior bladder base is essentially unchanged from the previous scan. The small lymph nodes with choline uptake seen on the previous scans are unchanged the pulmonary infiltrates have decreased. No new sites of abnormal choline uptake are noted. Clinically, patient was doing reasonably, but recently had evidence of disease progression confirmed with CT PET choline and progressive PSA. Mr Kauffman went to [facility] for follow-up and now palliative chemotherapy with cabazitaxel is recommended. Mr Kauffman had disease progression on Xtandi, which he was tolerating well but now with progressive disease and he is also on 3 monthly Zoladex. At this point, Mr Kauffman has discontinued Xtandi and role of cabazitaxel was discussed per Dr Alcazar. The current treatment plan is cabazitaxel 20 mg/m??? every 3 weeks along with Neulasta to prevent chemotherapy-induced neutropenia as patient is a high risk. We will plan for him to receive 4 cycles of chemotherapy as recommended by [facility] and then he will go to clinic for follow-up evaluation including scans. Mr Kauffman was advised to pursue treatment with cabazitaxel with Neulasta support. Mr. Kauffman underwent right Port-A-Cath [place] in the SVC/RA junction [place] [facility] [place]. He began his first cycle on 02/21/2020. He continues with every 3-month Zoladex. His last injection was given on January 28, 2020. He is currently off of all prednisone. Plan: 1. Continue with cycle 1 this is day 8. He is doing well thus far. 2. Continue current antiemetics as they are working well. He may use Compazine and Lorazepam as needed at home. Labs from today were reviewed in detail and discussed with Mr. Kauffman and a copy was given to him. WBC 11.8 (he did have Neulasta on February 21, 2020) hemoglobin 13.3 platelets 256,000 glucose 126 creatinine 0.9 LFTs are normal. His last PSA in our chart was from January 25, 2020 which time was 6.5. 3. Steroid cream will be called to [facility] for application to both axilla for the rash. If is not improving or certainly gets worsening refer him to dermatology. 4. We will plan to see him back in 2 weeks with CBC CMP and PSA. 5. Mr. Kauffman was instructed to contact us in the interim should questions or problems arise. 6. Mr Kauffman inquired about resuming his Prednisone. It was discontinued somtime back by Dr Lewis. Mr Kauffman has type II diabetes. I told him we would discuss it at his next cycle of chemotherapy but not to take any for now. Signed By: Selvin Gordon.-BOB, AOCNP Tom Alcazar MD <<Signature on File>>
[2020-03-12 11:09] LABS: Basophils % 0.6 %; Eosinophils # 0.2 10^3/uL (0.0-0.8); Eosinophils % 2.5 %; Hematocrit 39.3 % (42.0-52.0); Hemoglobin 11.7 g/dL (11.7-16.6); Lymphocytes # 1.4 10^3/uL (0.8-4.8); Lymphocytes % 21.5 %; Mean Corpuscular HGB Conc 29.8 g/dL (30.0-36.0); Mean Corpuscular Hemoglobin 28.3 pg (28.0-34.0); Mean Corpuscular Volume 95.2 fL (80-94); Mean Platelet Volume 10.6 fL (7.4-10.4); Monocytes # 0.9 10^3/uL (0.2-0.9); Monocytes % 13.1 %; Neutrophils # 4.04 10^3/uL (1.8-7.7); Nucleated Red Blood Cells % 0 %; Platelet Count 311 10^3/cmm (130-400); Red Blood Count 4.13 10^6/uL (4.1-5.3); Red Cell Distribution Width 15.9 % (12.1-15.1); White Blood Count 6.5 10^3/uL (4.0-10.0)
[2020-03-12 11:46] LABS: Alanine Aminotransferase 11 U/L (0-41); Albumin Level 3.8 g/dL (3.5-5.2); Alkaline Phosphatase 65 IU/L (40-130); Anion Gap 15.7 (5-19); Aspartate Amino Transferase 11 U/L (0-40); Blood Urea Nitrogen 19 mg/dL (8-23); Calcium 9.2 mg/dL (8.5-10.5); Carbon Dioxide 25 mmol/L (22-29); Chloride 105 mmol/L (98-107); Globulin 3.2 g/dL (1.3-4.6); Glucose 124 mg/dL (65-115); Osmolality Calculated 292 mOsm/kg (285-295); Potassium 3.7 mmol/L (3.5-5.1); Sodium 142 mmol/L (136-145); Total Bilirubin 0.3 mg/dL (0.15-1.2)
[2020-03-13] MEDS: sodium chloride 0.9% 250 ML 999 ML IV (09:30)
[2020-03-13] MEDS: pegfilgrastim 6 mg/0.6 mL Kit (onpro) SUBCUT (11:25)
--- NOTE | 2020-03-14 13:36 | ONC FU_ITS ---
Dr. Alcazar follow up note Patient: Alex Kauffman Unit #: [id number]: 1940 Dicatated By: Tom Alcazar M.D.Date of Visit:Mar 13, 2020 Onc Med Follow-up/Prog Note History of Present Illness: Mr. Kauffman is a 79-year-old gentleman with long-standing history of prostate cancer. Initially, he was diagnosed with prostate cancer in May 2000. At that time, his PSA was 9 and a biopsy showed 2+ 2/3+4/3+3 with the largest volume equal 3+4. Underwent radical retropubic prostatectomy in June 2000. He was followed with PSA postoperatively and during follow-up it was noted his PSA was increasing but slowly. Finally in 2010 it was felt he needed further treatment. He was treated with radiation therapy which he completed in March 2011. It showed good response with PSA down to 0.05. During follow-up in November 2012, his PSA gone up to 0.21; in May 2013 up to 0.35 and in November 2013 it was 0.93. In February 2015, he underwent cystoscopic examination found to have local recurrence. It was resected and confirmed to be poorly differentiated prostate cancer. At that time he was started on combined androgen blockade postop. His treatment was complicated by recurrent hematuria and burning micturition. Follow-up lab showed a gradual increase in his PSA level and from 07/06/2017 it was 2.5 earlier while on combined androgen blockade. On 12/21/2017, he underwent cystoscopy with transurethral resection of a bladder lesion, cystourethroscopy with placement of ureteral stent on left side and dilation of urethra. 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 Mr Kauffman has had persistent urine tract infection and recently finished course of Levaquin. Repeat urinalysis on 02/16/2018 showed persistent urine tract infection: leukoesterase positive and persistent RBCs and WBCs on microscopic evaluation. Mr Kauffman reported he did notice pus drops every time after he finish his urination. His case was discussed with Dr. Lloyd, urologist, and he was referred for possible cystoscopy to rule out postsurgical abscess or other source of infection- before we started chemotherapy. Mr Kauffman reported that he has seen Dr. Lloyd. Dr Lloyd replaced the urinary stent and did notice lots of urinary debris. Mr Kauffman was started on long-term antibiotics with Hiprex 1 g by mouth daily. He began his first dose of docetaxel on 03/14/2018. He was not given Neulasta as he did not have insurance approval at the time of chemotherapy. He did have significant neutropenia on day 8 with an ANC of 600. He did not have symptoms and gradually recovered. He did qualify for Neulasta administration with cycle 2 and Concluded his chemotherapy e.g. 6 doses on 06/27/2018 He went to [facility] on 09/07/2018 and as per patient his patient was started on Zytiga/prednisone for one year in addition to Zoladex every 3 months as scans done at [facility] showed excellent response to chemotherapy but persistent lung nodule and pelvic lesion and his PSA done there was around 1. We will obtain follow-up note from [facility] and review. Patient denies any fever chills denies any nausea or vomiting denies any pelvic pain, denies any dysuria or hematuria. On 09/21/2018 patient had left ureteral stent replacement. Mr Kauffman went to [facility] for follow-up on 12/25/2018 and had choline C 11 scan done, when compared with one from 09/07/2018, showed increased choline uptake is again seen in the prostatectomy bed on the left and involving the posterior bladder base is essentially unchanged from the previous scan. The small lymph nodes with choline uptake seen on the previous scan are unchanged. The pulmonary infiltrate have decreased. No new sites of abnormal choline uptake are noted. He was Tolerating ADT with Zoladex and Zytiga/prednisone well. He went to [facility] for follow-up on 06/29/2019. He underwent PET/CT choline which showed likely tumor at the left of urethral vesicle junction has SUV of 4.5 compared to 3.4 on 12/25/2018. Nonspecific activity to the right of urethrovesical junction has SUV of 1.8 compared to 2.1 previously. Likely tumor involving left sided urinary bladder including the left ureterovesical junction has SUV of 6.2 compared to 6.6 previously. Likely metastatic activity in the proximal right external iliac lymph node has SUV of 2.6 versus 2.2 previously. Nonspecific activity along the right common iliac vessels and adjacent to lumbar degenerative changes as current SUV of 2.9 versus 2.1 previously and his PSA was 2.5. Bbased on these findings, Dr. Lewis recommended continue with Zoladex but discontinue Zytiga and taper off prednisone. Initiate xtandi and choline And underwent follow-up CT PET on December 27, 2019 at [facility] which showed disease progression when compared with scan done on June 28, 2019 and showed malignant appearing choline activity along the urinary bladder oneal has increased,, prominent disease in the left UVJ region has current SUV of 9.7 versus 6.2 on June 2019. Metastatic appearing nodularity in the fat to the right of the urinary bladder anteriorly has increased. Approximate 1.7 x 1.3 cm right external iliac node measuring 0.7 x 0.5 cm on June 28, 2019 and now with SUV of 6 compared to 2.6 at that time. A likely metastatic right common iliac node now measures 1.8 x 1.2 cm versus 1 x 0.7 cm on June 28, 2019. Multiple nodes in the thorax shows interval increase activity compared to June 28, 2019, these are nonspecific could be due to granulomatous inflammation. As far as his left pelvic pain is concern, which is under control and left nephrostomy tube was suggested rather than continuing with ureteral stent exchanges every couple of months. Mr Kauffman was seen by Dr. Lewis and MSI/BRCA 1 and 2 were checked and both came back negative- so no role of immunotherapy with pembrolizumab and olaparib. Clinical trial was also considered but considering patient's age and overall condition, further chemotherapy with cabazitaxel was recommended and patient agreed. And he was advised to continue Xtandi until cabazitaxel is planned. Mr Kauffman began his first cycle of cabazitaxel on February 21, 2020. His Zoladex was last given on 01/28/2020. Mr. Kauffman is here today for follow-up. This is day 8 of cycle 1. He well overall. His only concern is that he has developed a new rash in both axilla but left is worse than the right. Rash is noted to have some brown pigmentation in the top of the axilla area and redness in the lower area. No vesciles or wheels, slight raised lesions. He states it is not really itching, but occasionally does itch some. It is not painful but some tenderness on deep palpation. It started about 4-5 days ago and has not gotten worse, but not improving much either. He denies any changes with soap, deodorant, lotions, laundry detergent or fabric softener. He cannot identify any particular trigger trigger but did notice that after the Jevtana treatment. Came for follow-up, denies any specific complaints, no fever chills, no nausea or vomiting, no diarrhea constipation, tolerated first cycle of chemotherapy with Jevtana well, except one episode of nausea but no vomiting. Medications: AZO Yeast Plus 1 Tablet Oral daily PRN, Hiprex 1 Tablet (of 1 G) Oral b.i.d., MetFORMIN HCl 1 Tablet (of 500 mg) Oral daily, oxyCODONE-Acetaminophen 1 Tablet (of 5-325 mg) Oral q 4 to 6 hours PRN, Vitamin C 1 Tablet (of 1 G) Oral daily Allergies: Cipro, Penicillins, and Sulfa Antibiotics. Review of Systems: Constitutional - Appetite is good and weight is stable. No fever, chills, hot flashes, or night sweats. Energy level is fair, ENMT - No sinus congestion/drainage. No mouth sores. No sore throat or difficulty swallowing, Hematologic/Lymphatic - No abnormal bruising or bleeding, Respiratory - Shortness of breath with exertion. No cough. No pleuritic pain or hemoptysis, Cardiovascular - No angina pain. No palpitations, Gastrointestinal - No nausea or vomiting. No heartburn or acid reflux. No diarrhea or constipation. No blood in the stool or black stools, Genitourinary (M) - Patient reports dysuria. No hematuria. No urinary frequency. Occasional urgency and incontinence, Musculoskeletal - No joint or bone pain, Neurologic - No headache or dizziness. No numbness/paresthesias or other focal neurologic symptoms, Psychiatric - No anxiety or depression. No insomnia. Vital Signs: Performed on Mar 13, 2020 08:21 Height - 67.00 in Weight - 221.2 lbs (HIGH) BSA - 2.11 sq.m BMI - 34.65 (HIGH) Temperature - 97.0 F (LOW) Pulse - 70 /min Respiration - 16 /min BP - 154/69 mm(hg) (HIGH) O2 Sat - 98 % Pain - 0 Performance Status: 0 - Fully active, able to carry on all predisease activities without restrictions. (ECOG) Physical Examination: ENMT - No mouth sores, no thrush, no jaundice, Respiratory - Lungs are clear, Cardiovascular - Regular rate and rhythm of heart, Abdomen - Soft, bowel sounds present, nontender, Extremities - No visible edema. Lab/Imaging: Test performed on Feb 28, 2020 12:26 Sodium 141 mmol/L Potassium 4.0 mmol/L Chloride 104 mmol/L CO2 24 mmol/L Anion Gap 17.0 BUN 15 mg/dL Creatinine 0.9 mg/dL Cr Clearance (Est) 93.2200 mL/min Glucose 126 mg/dL Calcium 9.4 mg/dL Protein, Total 7.4 g/dL Albumin 4.4 g/dL Globulin 3.0 g/dL Bilirubin, Total 0.3 mg/dL ALT (SGPT) 13 U/L AST (SGOT) 15 U/L Alkaline Phosphatase 116 IU/L WBC 11.8 10 3/uL Manual Bands % 18.0 % RBC 4.61 10 6/uL HGB 13.3 g/dL Manual Lymphs % 21 % HCT 42.8 % Manual Monos % 7.0 % MCV 92.8 fL MCH 28.9 pg MCHC 31.1 g/dL RDW 14.6 % Platelet Count 256 10 3/cmm MPV 10.4 fL CBC Slide Review Slide Review Perform Manual Bands Abs 2.1 10 3/cmm Manual Neutrophils Abs 8.3 10 3/cmm Manual Monocytes Abs 0.8 10 3/cmm Manual Eosinophils Abs 0.2 10 3/cmm Test performed on Feb 20, 2020 10:24 Neutrophils 3.7 10 3/uL Lymphocytes 1.8 10 3/uL Monocytes 0.7 10 3/uL Eosinophils 0.4 10 3/uL Basophils 0.0 10 3/uL Neutrophil % 55.4 % Lymphocyte % 27.3 % Monocyte % 10.3 % Eosinophil % 5.9 % Basophils % 0.6 % NRBC % 0 % Test performed on Jan 28, 2020 10:25 Ua Micro: WBC 15-25 /hpf Ua Micro: RBC 25-40 /hpf Ua Micro: Squam Epith Cells 0-4 Ua Micro: Bacteria 1+ Test performed on Jan 25, 2020 09:18 PSA 6.500 ng/mL Impression: ..Recurrent prostate cancer status post cystoscopy and excision in February 2015 followed by combined androgen blockade with Zoladex and Casodex. Now with gradual increasing PSA , While on combined androgen blockade Initially he was diagnosed prostate cancer in 1999- at that time he underwent retropubic radical prostatectomy. Status post radiation therapy in 2010 for increasing PSA and lymphadenopathy. Hematuria/dysuria since February 2015. CT scan of abdomen pelvis done on 03/02/2018 showed soft tissue mass measuring 2.2 cm x 3.2 x 2.9 in the expected location of the prostate inseparable from the urinary bladder floor urinary bladder wall is diffusely thickened and there is a soft tissue attenuation between the soft tissue mass in the anterior infra levator rectal wall, rectal lesion not excluded Seen by Dr. Edwards on 10/24/2017 and his impression was changes in the rectum are probably due to prostate invasion rather than primary rectal lesion. 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 Mr Kauffman was seen by Dr Lloyd for persistent UTI symptoms post op and was placed on long term care social worker antibiotics. His symptoms resolved and he began recommended chemotherapy with docetaxel on 03/14/2018. Mr. Kauffman has tolerated the chemotherapy relatively well. He did have chemotherapy-induced neutropenia on day 8 of cycle 1. His initial ANC at time of treatment on 03/14/2018 was 13,300 on day 8 his ANC was [address] PET scan done on 05/06/2018 showed no evidence for recurrent or residual malignancy., Tiny scattered pelvic nodes are radiographically benign and FDG negative, no findings to indicate osseous metastatic disease and left-sided hydronephrosis is present and a ureteral catheter is in place. PSA checked on 05/15/2018 showed 1.81 compared to 6.49 on 03/14/2018 when chemotherapy with Taxotere was started And concluded his chemotherapy with Taxotere e.g. 6 doses on 06/27/2018 Status post left ureteral stent placement on 05/22/2018 Again replaced on 09/21/2018 Went to [facility] on 09/07/2018,Choline C 11 scan done on 09/07/2018 showed large choline avid recurrence in the prostatectomy bed involving the posterior bladder base has improved since prior exam, however suspicious new small focus of choline avid disease along the right posterior bladder wall. New choline avid node metastatic disease including a right supraclavicular node. And increasing pulmonary infiltrate and/or atelectasis in the posterior lower lobes with reactive choline activity. so he was started on Zytiga/prednisone for one year along with an 3 monthly Zoladex. Mr Kauffman returned to the [facility] on 12/25/2018 and had choline C 11 scan done on same date showed when compared with choline scan done on 09/07/2018, increased choline uptake is seen again in the prostatectomy bed on the left and involving the posterior bladder base is essentially unchanged from the previous scan. The small lymph nodes with choline uptake seen on the previous scans are unchanged the pulmonary infiltrates have decreased. No new sites of abnormal choline uptake are noted. Clinically, patient was doing reasonably, but recently had evidence of disease progression confirmed with CT PET choline and progressive PSA. Mr Kauffman went to [facility] for follow-up and now palliative chemotherapy with cabazitaxel is recommended. Mr Kauffman had disease progression on Xtandi, which he was tolerating well but now with progressive disease and he is also on 3 monthly Zoladex. At this point, Mr Kauffman has discontinued Xtandi and role of cabazitaxel was discussed. The current treatment plan is cabazitaxel 20 mg/m??? every 3 weeks along with Neulasta to prevent chemotherapy-induced neutropenia as patient is a high risk. We will plan for him to receive 4 cycles of chemotherapy as recommended by [facility] and then he will go to clinic for follow-up evaluation including scans. Mr Kauffman was advised to pursue treatment with cabazitaxel with Neulasta support. Mr. Kauffman underwent right Port-A-Cath placement in the SVC/RA junction per Dr. Caballero at [facility] on February 14, 2020. He began his first cycle on 02/21/2020. He continues with every 3-month Zoladex. His last injection was given on January 28, 2020. He is currently off of all prednisone. Plan: Discussed with patient regarding his labs white blood count 6.5 hemoglobin 11.7 hematocrit 39.3 platelets 311,000 CMP within normal limits PSA 4.37 compared to 6.50 on January 25, 2020 Clinically, patient doing well, tolerating systemic therapy with Jevtana well but with expected side effects. We will continue and proceed with cycle #2/4 today with Neulasta support to prevent chemotherapy-induced neutropenia leukopenia and then he will return to clinic in 3 weeks with CBC CMP. Signed By: Tom Alcazar M.D. <<Signature on File>>
== END 2020-03-14 23:59 | disposition home or self-care (01) ==
LOC: ONCMED 05:59
PROVIDERS: Nurse Practitioner; PCP Nurse Practitioner; Visit Provider Internal Medicine Hematology & Oncology
DX: Z51.11 Encounter for antineoplastic chemotherapy (principal); C61 Malignant neoplasm of prostate; Z76.89 Persons encountering health services in other specified circumstances; R97.21 Rising PSA following treatment for malignant neoplasm of prostate; R31.9 Hematuria, unspecified; R30.0 Dysuria; N13.30 Unspecified hydronephrosis; Z90.79 Acquired absence of other genital organ(s); Z96.0 Presence of urogenital implants; Z79.899 Other long term (current) drug therapy; Z92.3 Personal history of irradiation; Z79.818 Long term (current) use of other agents affecting estrogen receptors and estrogen levels
CPT/HCPCS: 80053; 84153; 85007; 85025; 96367; 96372; 96413; 99214; J1100; J1200; J2469; J2505; J3490; J7050; J9043

== ENCOUNTER 2020-04-01 05:58 | Outpatient (RCR) | payer MEDICARE, OTHER, SELFPAY ==
[2020-03-31 15:51] LABS: Basophils # 0.1 10^3/uL (0.0-0.1); Basophils % 0.9 %; Eosinophils # 0.6 10^3/uL (0.0-0.8); Eosinophils % 6.9 %; Hematocrit 40.9 % (42.0-52.0); Hemoglobin 11.8 g/dL (11.7-16.6); Lymphocytes # 1.8 10^3/uL (0.8-4.8); Lymphocytes % 22.5 %; Mean Corpuscular HGB Conc 28.9 g/dL (30.0-36.0); Mean Corpuscular Hemoglobin 27.6 pg (28.0-34.0); Mean Corpuscular Volume 95.8 fL (80-94); Mean Platelet Volume 10.3 fL (7.4-10.4); Monocytes # 0.9 10^3/uL (0.2-0.9); Monocytes % 11.8 %; Neutrophils # 4.61 10^3/uL (1.8-7.7); Neutrophils % 57.6 %; Nucleated Red Blood Cells % 0 %; Platelet Count 276 10^3/cmm (130-400); Red Blood Count 4.27 10^6/uL (4.1-5.3); Red Cell Distribution Width 17.1 % (12.1-15.1)
[2020-03-31 16:20] LABS: Add Urine Microscopic? YES; Bilirubin Urine 1+ (NEGATIVE); Blood Urine 3+ (Negative); Glucose Urine UA Norm (Normal); Ketones Urine Negative (Negative); Leukocyte Esterase Urine 2+ (Negative); Nitrate Urine Positive (Negative); Protein Urine 3+ (Negative); Urine Appearance Turbid (CLEAR); Urine Color Red (Yellow); Urobilinogen Urine 4 mg/dL (Negative); pH Urine 5 (5-7)
[2020-03-31 16:21] LABS: Bacteria Urine 3+; RBC Urine TOO NUMEROUS TO CNT /hpf (0-2); Squamous Epithelial Cell Urine 0-4 (0-5); WBC Urine TOO NUMEROUS TO CNT /hpf (0-5)
[2020-03-31 16:23] LABS: Add Urine Culture? Yes
[2020-03-31 18:35] LABS: Alanine Aminotransferase 13 U/L (0-41); Albumin Level 3.9 g/dL (3.5-5.2); Alkaline Phosphatase 73 IU/L (40-130); Anion Gap 16.8 (5-19); Aspartate Amino Transferase 12 U/L (0-40); Blood Urea Nitrogen 21 mg/dL (8-23); Calcium 9.2 mg/dL (8.5-10.5); Carbon Dioxide 26 mmol/L (22-29); Chloride 101 mmol/L (98-107); Globulin 3.3 g/dL (1.3-4.6); Glucose 81 mg/dL (65-115); Osmolality Calculated 286 mOsm/kg (285-295); Potassium 3.8 mmol/L (3.5-5.1); Sodium 140 mmol/L (136-145); Total Bilirubin 0.3 mg/dL (0.15-1.2); Total Protein 7.2 g/dL (6.6-8.7)
[2020-04-01] MEDS: sodium chloride 0.9% 250 ML 75 ML IV (13:35)
--- NOTE | 2020-04-01 16:37 | ONC FU_ITS ---
Dr. Alcazar follow up note Patient: Alex Kauffman Unit #: [id number]: 1940 Dicatated By: Tom Alcazar M.D.Date of Visit:Apr 01, 2020 Onc Med Follow-up/Prog Note History of Present Illness: Mr. Kauffman is a 79-year-old gentleman with long-standing history of prostate cancer. Initially, he was diagnosed with prostate cancer in May 2000. At that time, his PSA was 9 and a biopsy showed 2+ 2/3+4/3+3 with the largest volume equal 3+4. Underwent radical retropubic prostatectomy in June 2000. He was followed with PSA postoperatively and during follow-up it was noted his PSA was increasing but slowly. Finally in 2010 it was felt he needed further treatment. He was treated with radiation therapy which he completed in March 2011. It showed good response with PSA down to 0.05. During follow-up in November 2012, his PSA gone up to 0.21; in May 2013 up to 0.35 and in November 2013 it was 0.93. In February 2015, he underwent cystoscopic examination found to have local recurrence. It was resected and confirmed to be poorly differentiated prostate cancer. At that time he was started on combined androgen blockade postop. His treatment was complicated by recurrent hematuria and burning micturition. Follow-up lab showed a gradual increase in his PSA level and from 07/06/2017 it was 2.5 earlier while on combined androgen blockade. On 12/21/2017, he underwent cystoscopy with transurethral resection of a bladder lesion, cystourethroscopy with placement of ureteral stent on left side and dilation of urethra. 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 Mr Kauffman has had persistent urine tract infection and recently finished course of Levaquin. Repeat urinalysis on 02/16/2018 showed persistent urine tract infection: leukoesterase positive and persistent RBCs and WBCs on microscopic evaluation. Mr Kauffman reported he did notice pus drops every time after he finish his urination. His case was discussed with Dr. Lloyd, urologist, and he was referred for possible cystoscopy to rule out postsurgical abscess or other source of infection- before we started chemotherapy. Mr Kauffman reported that he has seen Dr. Lloyd. Dr Lloyd replaced the urinary stent and did notice lots of urinary debris. Mr Kauffman was started on long-term antibiotics with Hiprex 1 g by mouth daily. He began his first dose of docetaxel on 03/14/2018. He was not given Neulasta as he did not have insurance approval at the time of chemotherapy. He did have significant neutropenia on day 8 with an ANC of 600. He did not have symptoms and gradually recovered. He did qualify for Neulasta administration with cycle 2 and Concluded his chemotherapy e.g. 6 doses on 06/27/2018 He went to [facility] on 09/07/2018 and as per patient his patient was started on Zytiga/prednisone for one year in addition to Zoladex every 3 months as scans done at [facility] showed excellent response to chemotherapy but persistent lung nodule and pelvic lesion and his PSA done there was around 1. We will obtain follow-up note from [facility] and review. Patient denies any fever chills denies any nausea or vomiting denies any pelvic pain, denies any dysuria or hematuria. On 09/21/2018 patient had left ureteral stent replacement. Mr Kauffman went to [facility] for follow-up on 12/25/2018 and had choline C 11 scan done, when compared with one from 09/07/2018, showed increased choline uptake is again seen in the prostatectomy bed on the left and involving the posterior bladder base is essentially unchanged from the previous scan. The small lymph nodes with choline uptake seen on the previous scan are unchanged. The pulmonary infiltrate have decreased. No new sites of abnormal choline uptake are noted. He was Tolerating ADT with Zoladex and Zytiga/prednisone well. He went to [facility] for follow-up on 06/29/2019. He underwent PET/CT choline which showed likely tumor at the left of urethral vesicle junction has SUV of 4.5 compared to 3.4 on 12/25/2018. Nonspecific activity to the right of urethrovesical junction has SUV of 1.8 compared to 2.1 previously. Likely tumor involving left sided urinary bladder including the left ureterovesical junction has SUV of 6.2 compared to 6.6 previously. Likely metastatic activity in the proximal right external iliac lymph node has SUV of 2.6 versus 2.2 previously. Nonspecific activity along the right common iliac vessels and adjacent to lumbar degenerative changes as current SUV of 2.9 versus 2.1 previously and his PSA was 2.5. Bbased on these findings, Dr. Lewis recommended continue with Zoladex but discontinue Zytiga and taper off prednisone. Initiate xtandi and choline And underwent follow-up CT PET on December 27, [address] [facility] which showed disease progression when compared with scan done on June 28, 2019 and showed malignant appearing choline activity along the urinary bladder oneal has increased,, prominent disease in the left UVJ region has current SUV of 9.7 versus 6.2 on June 2019. Metastatic appearing nodularity in the fat to the right of the urinary bladder anteriorly has increased. Approximate 1.7 x 1.3 cm right external iliac node measuring 0.7 x 0.5 cm on June 28, 2019 and now with SUV of 6 compared to 2.6 at that time. A likely metastatic right common iliac node now measures 1.8 x 1.2 cm versus 1 x 0.7 cm on June 28, 2019. Multiple nodes in the thorax shows interval increase activity compared to June 28, 2019, these are nonspecific could be due to granulomatous inflammation. As far as his left pelvic pain is concern, which is under control and left nephrostomy tube was suggested rather than continuing with ureteral stent exchanges every couple of months. Mr Kauffman was seen by Dr. Lewis and MSI/BRCA 1 and 2 were checked and both came back negative- so no role of immunotherapy with pembrolizumab and olaparib. Clinical trial was also considered but considering patient's age and overall condition, further chemotherapy with cabazitaxel was recommended and patient agreed. And he was advised to continue Xtandi until cabazitaxel is planned. Mr Kauffman began his first cycle of cabazitaxel on February 21, 2020. His Zoladex was last given on 01/28/2020. Came for follow-up, complaining of burning micturition and irritation but no fever chills, no nausea or vomiting, no diarrhea constipation, patient said he is due for urinary catheter replacement now scheduled April 14, 2020., Usually he takes antibiotics on a chronic basis but recently he is off. No hematuria, no lower pelvic pain, no lightheadedness or dizziness, no skin rash, no wheezing, no diarrhea. Tolerating cabazitaxel well Medications: AZO Yeast Plus 1 Tablet Oral daily PRN, Hiprex 1 Tablet (of 1 G) Oral b.i.d., MetFORMIN HCl 1 Tablet (of 500 mg) Oral daily, oxyCODONE-Acetaminophen 1 Tablet (of 5-325 mg) Oral q 4 to 6 hours PRN, Vitamin C 1 Tablet (of 1 G) Oral daily Allergies: Cipro, Penicillins, and Sulfa Antibiotics. Review of Systems: Constitutional - Appetite is good and weight is stable. No fever, chills, hot flashes, or night sweats. Energy level is fair, ENMT - No sinus congestion/drainage. No mouth sores. No sore throat or difficulty swallowing, Hematologic/Lymphatic - No abnormal bruising or bleeding, Respiratory - Shortness of breath with exertion. No cough. No pleuritic pain or hemoptysis, Cardiovascular - No angina pain. No palpitations, Gastrointestinal - No nausea or vomiting. No heartburn or acid reflux. No diarrhea or constipation. No blood in the stool or black stools, Genitourinary (M) - Patient reports dysuria. No hematuria. No urinary frequency. Occasional urgency and incontinence, Musculoskeletal - No joint or bone pain, Neurologic - No headache or dizziness. No numbness/paresthesias or other focal neurologic symptoms, Psychiatric - No anxiety or depression. No insomnia. Vital Signs: Performed on Apr 01, 2020 12:34 Height - 67.00 in Weight - 224.2 lbs (HIGH) BSA - 2.12 sq.m BMI - 35.11 (HIGH) Temperature - 98.2 F (LOW) Pulse - 69 /min Respiration - 24 /min BP - 149/73 mm(hg) (HIGH) O2 Sat - 95 % (LOW) Pain - 0 Performance Status: 0 - Fully active, able to carry on all predisease activities without restrictions. (ECOG) Physical Examination: ENMT - No mouth sores, no thrush, no jaundice, Respiratory - Lungs are clear, Cardiovascular - Regular rate and rhythm of heart, Abdomen - Soft, bowel sounds present, Extremities - No visible edema. Lab/Imaging: Test performed on Feb 28, 2020 12:26 Sodium 141 mmol/L Potassium 4.0 mmol/L Chloride 104 mmol/L CO2 24 mmol/L Anion Gap 17.0 BUN 15 mg/dL Creatinine 0.9 mg/dL Cr Clearance (Est) 93.2200 mL/min Glucose 126 mg/dL Calcium 9.4 mg/dL Protein, Total 7.4 g/dL Albumin 4.4 g/dL Globulin 3.0 g/dL Bilirubin, Total 0.3 mg/dL ALT (SGPT) 13 U/L AST (SGOT) 15 U/L Alkaline Phosphatase 116 IU/L WBC 11.8 10 3/uL Manual Bands % 18.0 % RBC 4.61 10 6/uL HGB 13.3 g/dL Manual Lymphs % 21 % HCT 42.8 % Manual Monos % 7.0 % MCV 92.8 fL MCH 28.9 pg MCHC 31.1 g/dL RDW 14.6 % Platelet Count 256 10 3/cmm MPV 10.4 fL CBC Slide Review Slide Review Perform Manual Bands Abs 2.1 10 3/cmm Manual Neutrophils Abs 8.3 10 3/cmm Manual Monocytes Abs 0.8 10 3/cmm Manual Eosinophils Abs 0.2 10 3/cmm Test performed on Feb 20, 2020 10:24 Neutrophils 3.7 10 3/uL Lymphocytes 1.8 10 3/uL Monocytes 0.7 10 3/uL Eosinophils 0.4 10 3/uL Basophils 0.0 10 3/uL Neutrophil % 55.4 % Lymphocyte % 27.3 % Monocyte % 10.3 % Eosinophil % 5.9 % Basophils % 0.6 % NRBC % 0 % Test performed on Jan 28, 2020 10:25 Ua Micro: WBC 15-25 /hpf Ua Micro: RBC 25-40 /hpf Ua Micro: Squam Epith Cells 0-4 Ua Micro: Bacteria 1+ Test performed on Jan 25, 2020 09:18 PSA 6.500 ng/mL Impression: ..Recurrent prostate cancer status post cystoscopy and excision in February 2015 followed by combined androgen blockade with Zoladex and Casodex. Now with gradual increasing PSA , While on combined androgen blockade Initially he was diagnosed prostate cancer in 1999- at that time he underwent retropubic radical prostatectomy. Status post radiation therapy in 2010 for increasing PSA and lymphadenopathy. Hematuria/dysuria since February 2015. CT scan of abdomen pelvis done on 03/02/2018 showed soft tissue mass measuring 2.2 cm x 3.2 x 2.9 in the expected location of the prostate inseparable from the urinary bladder floor urinary bladder wall is diffusely thickened and there is a soft tissue attenuation between the soft tissue mass in the anterior infra levator rectal wall, rectal lesion not excluded Seen by Dr. Edwards on 10/24/2017 and his impression was changes in the rectum are probably due to prostate invasion rather than primary rectal lesion. 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 Mr Kauffman was seen by Dr Lloyd for persistent UTI symptoms post op and was placed on fdc antibiotics. His symptoms resolved and he began recommended chemotherapy with docetaxel on 03/14/2018. Mr. Kauffman has tolerated the chemotherapy relatively well. He did have chemotherapy-induced neutropenia on day 8 of cycle 1. His initial ANC at time of treatment on 03/14/2018 was 13,300 on day 8 his ANC was [address] PET scan done on 05/06/2018 showed no evidence for recurrent or residual malignancy., Tiny scattered pelvic nodes are radiographically benign and FDG negative, no findings to indicate osseous metastatic disease and left-sided hydronephrosis is present and a ureteral catheter is in place. PSA checked on 05/15/2018 showed 1.81 compared to 6.49 on 03/14/2018 when chemotherapy with Taxotere was started And concluded his chemotherapy with Taxotere e.g. 6 doses on 06/27/2018 Status post left ureteral stent placement on 05/22/2018 Again replaced on 09/21/2018 Went to [facility] on 09/07/2018,Choline C 11 scan done on 09/07/2018 showed large choline avid recurrence in the prostatectomy bed involving the posterior bladder base has improved since prior exam, however suspicious new small focus of choline avid disease along the right posterior bladder wall. New choline avid node metastatic disease including a right supraclavicular node. And increasing pulmonary infiltrate and/or atelectasis in the posterior lower lobes with reactive choline activity. so he was started on Zytiga/prednisone for one year along with an 3 monthly Zoladex. Mr Kauffman returned to the [facility] on 12/25/2018 and had choline C 11 scan done on same date showed when compared with choline scan done on 09/07/2018, increased choline uptake is seen again in the prostatectomy bed on the left and involving the posterior bladder base is essentially unchanged from the previous scan. The small lymph nodes with choline uptake seen on the previous scans are unchanged the pulmonary infiltrates have decreased. No new sites of abnormal choline uptake are noted. Clinically, patient was doing reasonably, but recently had evidence of disease progression confirmed with CT PET choline and progressive PSA. Mr Kauffman went to [facility] for follow-up and now palliative chemotherapy with cabazitaxel is recommended. Mr Kauffman had disease progression on Xtandi, which he was tolerating well but now with progressive disease and he is also on 3 monthly Zoladex. At this point, Mr Kauffman has discontinued Xtandi and role of cabazitaxel was discussed. The current treatment plan is cabazitaxel 20 mg/m??? every 3 weeks along with Neulasta to prevent chemotherapy-induced neutropenia as patient is a high risk. We will plan for him to receive 4 cycles of chemotherapy as recommended by [facility] and then he will go to clinic for follow-up evaluation including scans. Mr Kauffman was advised to pursue treatment with cabazitaxel with Neulasta support. Mr. Kauffman underwent right Port-A-Cath placement in the SVC/RA junction per Dr. Caball[place] [facility] [place] 14, 2020. He began his first cycle on 02/21/2020. He continues with every 3-month Zoladex. His last injection was given on January 28, 2020. He is currently off of all prednisone. Plan: Discussed with patient regarding his labs white blood count 8 hemoglobin 11.8 hematocrit 40.9 platelets 276,000 CMP within normal limits Clinically, patient is doing well, tolerating cabazitaxel well but with expected side effects. We will proceed with next 3 weekly dose of cabazitaxel with Neulasta support today and then he will return to clinic in 3 weeks with CBC CMP As far as burning micturition/irritation is concerned his urinalysis shows evidence of urine tract infection, culture is pending, patient was advised to resume Levaquin as prescribed by Dr. Lloyd. And he will see Dr. Lloyd on April 14, 2020. Patient was advised to call in case he has any mental status changes or fever or chills or worsening of symptoms. Signed By: Tom Alcazar M.D. <<Signature on File>>
== END 2020-04-14 23:59 | disposition home or self-care (01) ==
LOC: ONCMED 05:58
PROVIDERS: PCP Nurse Practitioner; Visit Provider Internal Medicine Hematology & Oncology
DX: Z51.11 Encounter for antineoplastic chemotherapy (principal); C61 Malignant neoplasm of prostate; N40.1 Benign prostatic hyperplasia with lower urinary tract symptoms; R30.0 Dysuria; R31.9 Hematuria, unspecified; N39.0 Urinary tract infection, site not specified
CPT/HCPCS: 36415; 80053; 81001; 85025; 87086; 87106; 96367; 96413; 99214; J1100; J1200; J2469; J3490; J7050; J9043

== ENCOUNTER 2020-04-14 09:23 | Outpatient (CLI) | payer MEDICARE, OTHER, SELFPAY ==
--- NOTE | 2020-04-14 09:30 | XRR_ITS ---
PROCEDURE INFORMATION: Exam: XR Abdomen, 1 View Exam date and time: 04/14/2020 9:45 AM Age: 79 years old Clinical indication: Condition or disease; Kidney or ureter condition; Other: Ureteral obstruction; Prior surgery; Surgery type: Prostate, stent TECHNIQUE: Imaging protocol: XR of the abdomen. Views: Frontal supine view of the abdomen. 1 View. COMPARISON: CT abdomen pelvis wo/w [id number] 01/12/2020 12:24 AM FINDINGS: Tubes, catheters and devices: Left double-J catheter. 5 mm calcification overlying the left renal fossa, suspicious for urolithiasis. Gastrointestinal tract: Prominent stool. Intraperitoneal space: Surgical clips in the pelvis. Vasculature: Vascular calcifications. Bones/joints: Degenerative change and ligamentous calcification. Soft tissues: Calcification at the gluteal muscle attachment site. XR/XR KUB [id number] IMPRESSION: Left double-J catheter and 5 mm calcification overlying the left renal fossa, suspicious for urolithiasis.
== END 2020-04-14 09:24 | disposition home or self-care (01) ==
LOC: RAD 09:27
PROVIDERS: PCP Nurse Practitioner; Visit Provider Urology
DX: N13.5 Crossing vessel and stricture of ureter without hydronephrosis (principal); Z96.0 Presence of urogenital implants; N20.0 Calculus of kidney; C61 Malignant neoplasm of prostate; N30.20 Other chronic cystitis without hematuria
CPT/HCPCS: 74018; 80053; 81001; 87086; 87106

== ENCOUNTER 2020-04-17 12:00 | Day surgery (SDC) | payer MEDICARE, OTHER, SELFPAY ==
[2020-04-16 12:12] VITALS: BMI 33.5
--- NOTE | 2020-04-17 | SCC_ITS ---
Procedure Done: Cystoscopy, exchange left ureteral stent 16.3 seconds of fluoroscopic guidance, for a cumulative dose of 7.01 mGy, was provided to Dr. Lloyd by the radiology department. C-arm images of the abdomen were saved for the patient's permanent record. [facility]
--- NOTE | 2020-04-17 12:09 | SC_ITS ---
WS: [id number] C-arm fluoroscopy views of the left abdomen for ureteral stent placement, 04/17/2020 Clinical Data: Left ureteral stent exchange Comparison: KUB, 04/14/2020. Findings: There is a left ureteral stent whose proximal portion and in the region of the left renal pelvis SC/C-arm [place] for Urology Impression: Left ureteral stent exchange and placement.
[2020-04-17 12:13] VITALS: BP 129/70; PULSE 80; RESP 16; TEMP 35.7; O2SAT 94
[2020-04-17 12:43] LABS: Glucose Point of Care 100 mg/dL (70-110)
[2020-04-17] MEDS: sodium chloride 0.9% 1,000 ML 30 ML IV (12:50)
--- NOTE | 2020-04-17 12:53 | ANES.PREANE2 ---
Pre-Anesthetic Assessment Pre-Anesthetic Assessment: Height/Weight: Height 1.73 m Weight 100.244 kg Temp Pulse Resp BP Pulse Ox 96.3 F L 80 16 129/70 94 04/17/20 12:13 04/17/20 12:13 04/17/20 12:13 04/17/20 12:13 04/17/20 12:13 Preop Diagnosis: Chronic left ureteral stent due for change Proposed Procedure: Operation Date: 04/17/20 13:25 Proposed Procedures p Cystoscopy 70110 N13.5(Left) - Jasper Lloyd MD s Ureteral Stent Exchange(Left) - Jasper Lloyd MD Familial anesthetic complications: None Was Beta Jasmine taken within 24 hours: N/A Last intake: Intake NPO > 8 hrs Last Liquid Date 04/16/20 Last Solid Date 04/16/20 Social: Social History: No alcohol and No tobacco Exam: Pre-Anes Outpt Exam: alert, oriented x 3, clear to auscultation bilaterally and regular rate & rhythm Airway: Cervical ROM: WNL MP: 2 Dentition: False CV/HEM: CV/HEM: HTN Metabolic: Metabolic: DM Anesthetic Plan: ASA status: 2 Anesthesia: General Risk of > 500 ml blood loss (7ml/kg in children): No Meds/Allergies Current Medications: Current Medications Generic Name Dose Route Start Last Admin Trade Name Freq PRN Reason Stop Dose Admin Sodium Chloride 1,000 mls @ 30 ml s/hr 04/17/20 10:30 04/17/20 12:50 Sodium Chloride 0.9% IV 04/18/20 10:29 30 mls/hr .Q24H EBER Administration PFSH Anesthesia PFSH: Medical History Chronic cystitis Extrinsic ureteral obstruction Male stress incontinence Prostate cancer Surgical History History of radical retropubic prostatectomy Hx of transurethral destruction of bladder lesion S/P right knee surgery Status post placement of ureteral stent Family History Mother , in her 70's CAD (coronary artery disease) Father , in his 80's No problems noted. Social History Smoking and tobacco status: never smoked Alcohol intake: never Adopted: No Caregiver/support person: No Lives independently: No Household members: spouse Marital status: Current occupational status: retired History of recent travel: No Data Anesthesia Other Labs: Laboratory Results - last 48 hr 04/17/20 12:40 POC Glucose 100 Cardiac Studies: No Data to Display
--- NOTE | 2020-04-17 13:23 | W.PM.OPSUD ---
Surgery/Procedure H&P Update DATE OF PROCEDURE: April 17, 2020 DATE H&P PERFORMED: 04/14/20 H&P UPDATE INFORMATION: I have reviewed H&P completed within last 30 days, I have examined patient prior to procedure, No changes to prior documentation and H&P is in [facility] EMR on date indicated PREOP DIAGNOSIS: Chronic left ureteral stent due for change PLANNED PROCEDURE: Operation Date: 04/17/20 13:25 Proposed Procedures p Cystoscopy 58495 N13.5(Left) - Jasper Lloyd MD s Ureteral Stent Exchange(Left) - Jasper Lloyd MD
[2020-04-17] MEDS: levofloxacin-dextrose 5 % 500 MG/100 ML PREMIX 100 MG IV (13:30)
--- NOTE | 2020-04-17 13:37 | P.OP_ITS ---
Operative Report Date of procedure: April 17, 2020 Pre-op Diagnosis: Left ureteral obstruction, chronic left ureteral stent due for change Post-op diagnosis: same Procedure Done: Cystoscopy, exchange left ureteral stent Implants: 8 [place] by 28 cm double-pigtail stent Pathology: none sent Surgeon: Prema Anesthesia: MAC Estimated blood loss: Approximately 20 cc Urine output: Not measured Complications: None Findings: Increased trigone and left ureteral orifice tissues deterioration from invasive prostate cancer and prior radiation therapy. Very friable Stent changed. Utilized 8 [place] by 28 cm in order to facilitate next change by passage of wire through the stent as opposed to next to the stent. The distal ureteral intramural tunnel was not accommodating of passage of wire Condition: stable Disposition: PACU Brief History: Mr. Kauffman is a very pleasant 79-year-old white male with aggressive recurrent prostate cancer following radical prostatectomy remotely, salvage radiation therapy, and ongoing systemic therapy. He developed left distal ureteral obstruction secondary to progressive disease and has maintained an indwelling ureteral stent for several years now. He had consulted with the [facility] who performed a local resection via transurethral approach but still required stenting. Last stent change was 01/10/2020 and is back now for stent change. For the last couple weeks has had increasing bladder discomfort associated with the stent which usually portends significant encrustation. Procedure: After routine preoperative evaluation examination and obtaining of informed consent he was taken to the operating suite on 04/17/2020 where general anesthesia was administered without difficulty after appropriate timeout was per formed, SCDs confirmed to be functioning, preoperative antibiotics administered, beta-kofi protocol confirmed. Prepped and draped in the usual sterile fashion in dorsolithotomy position pain careful attention to avoiding pressure points. 21 Citizen [place] cystoscope with 30 degree lens was introduced into urethral meatus and advanced into the bladder under videoscopy. Bladder neck, trigone, and glenn cially the area of the left ureteral orifice was very inflamed and distorted architecturally. Tissue was friable. A guidewire was attempted to be passed next to the stent but would not advance up the ureter and in fact appeared to be penetrating through friable tissue just back into the bladder on the medial side of the ureteral orifice. Flexible graspers were then used to secure the distal end of the stent and withdraw to the urethral meatus or thankfully a guidewire could be advanced up the stent without difficulty and the stent was removed. It appeared that the problems with the distal ureter were not likely to be resolved with time and for that reason it was decided to leave a longer stent in to make sure that there is enough stent remaining up the ureter when it was pulled to the urethral meatus to not lose access. For that reason an 8 [place] by 28 cm stent was chosen. The cystoscope was then backloaded over the guidewire and the stent was passed through the cystoscope over the guidewire into appropriate position as confirmed via fluoroscopy and cystoscopy. An [employer] evacuator was utilized to clear the small number of blood clots out of the bladder and the area of friability was carefully inspected and was not severely bleeding but rather just the generalized low-volume oozing. Inspection revealed no increased bruising under observation and for that reason the scope was removed and the procedure completed. Risk for clot retention was felt to be small due to his chronic insensate leakage as well as minimal bleeding at time of completion. Tolerated procedure well without complications and was awakened in the operating room and returned to recovery room in stable condition. PLANS: 1. Follow-up in 2.5 months with KUB 2. Schedule stent change shortly thereafter
[2020-04-17 14:12] VITALS: BP 91/76; PULSE 74; RESP 18; TEMP 36.5; O2SAT 95
[2020-04-17 14:40] VITALS: BP 112/79; PULSE 70; RESP 18; O2SAT 98
--- NOTE | 2020-04-17 14:40 | ANE.PACU2 ---
Inpatient post-anesthesia follow up: Airway intact: Yes Vital signs: Temperature 97.7 F Pulse Rate 70 Respiratory Rate 18 Blood Pressure 112/79 Pulse Oximetry 98 Oxygen Delivery Me thod Room Air Oxygen Flow Rate Fraction of Inspir ed Oxygen Hydration adequate: Yes Nausea and vomiting: No Pain level: 1 Mental status: Baseline
== END 2020-04-17 14:53 | disposition home or self-care (01) ==
PROVIDERS: PCP Nurse Practitioner; Visit Provider Urology
PROC: 0TJB8ZZ Inspection of Bladder, Via Natural or Artificial Opening Endoscopic (ICD-10-PCS; CPT 52000; principal; 2020-04-17 13:05)
PROC: (CPT 52332; 2020-04-17 13:05)
DX: N13.5 Crossing vessel and stricture of ureter without hydronephrosis (principal); C61 Malignant neoplasm of prostate; N30.00 Acute cystitis without hematuria; I10 Essential (primary) hypertension; E11.9 Type 2 diabetes mellitus without complications; Z90.79 Acquired absence of other genital organ(s); Z92.3 Personal history of irradiation; Z88.0 Allergy status to penicillin; Z88.1 Allergy status to other antibiotic agents; Z88.2 Allergy status to sulfonamides; Z79.84 Long term (current) use of oral hypoglycemic drugs
CPT/HCPCS: 52332; 12345; 36416; 76000; 82962; J1956; J2704; J3010; J7030

== ENCOUNTER 2020-05-13 05:35 | Outpatient (RCR) | payer MEDICARE, OTHER, SELFPAY ==
[2020-04-18 10:06] LABS: Basophils % 0.4 %; Eosinophils # 0.1 10^3/uL (0.0-0.8); Eosinophils % 1.2 %; Hematocrit 37.6 % (42.0-52.0); Hemoglobin 11.7 g/dL (11.7-16.6); Lymphocytes # 1.9 10^3/uL (0.8-4.8); Lymphocytes % 20.2 %; Mean Corpuscular HGB Conc 31.1 g/dL (30.0-36.0); Mean Corpuscular Hemoglobin 27.9 pg (28.0-34.0); Mean Corpuscular Volume 89.7 fL (80-94); Mean Platelet Volume 10.2 fL (7.4-10.4); Monocytes # 1.6 10^3/uL (0.2-0.9); Monocytes % 16.9 %; Neutrophils % 60.6 %; Nucleated Red Blood Cells % 0 %; Platelet Count 314 10^3/cmm (130-400); Red Blood Count 4.19 10^6/uL (4.1-5.3); Red Cell Distribution Width 16.7 % (12.1-15.1); White Blood Count 9.4 10^3/uL (4.0-10.0)
[2020-04-18 10:49] LABS: Alanine Aminotransferase 13 U/L (0-41); Albumin Level 3.7 g/dL (3.5-5.2); Alkaline Phosphatase 65 IU/L (40-130); Anion Gap 14.8 (5-19); Aspartate Amino Transferase 11 U/L (0-40); Blood Urea Nitrogen 19 mg/dL (8-23); Carbon Dioxide 22 mmol/L (22-29); Chloride 105 mmol/L (98-107); Globulin 3.3 g/dL (1.3-4.6); Glucose 132 mg/dL (65-115); Osmolality Calculated 284 mOsm/kg (285-295); Potassium 3.8 mmol/L (3.5-5.1); Sodium 138 mmol/L (136-145); Total Bilirubin 0.3 mg/dL (0.15-1.2)
[2020-04-22 14:07] LABS: Protein Urine 3+ (Negative); Specific Gravity, Urine 1.015 (1.005-1.030); Urine Appearance Hazy (CLEAR); Urine Color Yellow (Yellow); pH Urine 6 (5-7)
[2020-04-22 14:08] LABS: Bilirubin Urine 1+ (NEGATIVE); Blood Urine 3+ (Negative); Glucose Urine UA Norm (Normal); Ketones Urine Negative (Negative); Leukocyte Esterase Urine 2+ (Negative); Nitrate Urine Negative (Negative); Urobilinogen Urine 1 mg/dL (Negative)
[2020-04-22 14:09] LABS: RBC Urine 40-50 /hpf (0-2); Squamous Epithelial Cell Urine 0-4 (0-5); WBC Urine TOO NUMEROUS TO CNT /hpf (0-5)
[2020-04-22 14:14] LABS: Add Urine Culture? Yes; Bacteria Urine 2+
[2020-04-22] MEDS: sodium chloride 0.9% 250 ML 999 ML IV (14:46)
--- NOTE | 2020-04-26 16:39 | ONC FU_ITS ---
[facility] Patient Note Patient: Alex Kauffman Unit #: [id number]: [id number] Dictated By: Yesenia GordonDate of Visit: Apr 22, 2020 Onc MED Follow-Up/Prog Note Chief Complaint: Prostate cancer History of Present Illness: Mr. Kauffman is a 79-year-old gentleman with long-standing history of prostate cancer. Initially, he was diagnosed with prostate cancer in May 2000. At that time, his PSA was 9 and a biopsy showed 2+ 2/3+4/3+3 with the largest volume equal 3+4. Underwent radical retropubic prostatectomy in June 2000. He was followed with PSA postoperatively and during follow-up it was noted his PSA was increasing but slowly. Finally in 2010 it was felt he needed further treatment. He was treated with radiation therapy which he completed in March 2011. It showed good response with PSA down to 0.05. During follow-up in November 2012, his PSA gone up to 0.21; in May 2013 up to 0.35 and in November 2013 it was 0.93. In February 2015, he underwent cystoscopic examination found to have local recurrence. It was resected and confirmed to be poorly differentiated prostate cancer. At that time he was started on combined androgen blockade postop. His treatment was complicated by recurrent hematuria and burning micturition. Follow-up lab showed a gradual increase in his PSA level and from 07/06/2017 it was 2.5 earlier while on combined androgen blockade. On 12/21/2017, he underwent cystoscopy with transurethral resection of a bladder lesion, cystourethroscopy with placement of ureteral stent on left side and dilation of urethra. 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 Mr Kauffman has had persistent urine tract infection and recently finished course of Levaquin. Repeat urinalysis on 02/16/2018 showed persistent urine tract infection: leukoesterase positive and persistent RBCs and WBCs on microscopic evaluation. Mr Kauffman reported he did notice pus drops every time after he finish his urination. His case was discussed with Dr. Lloyd, urologist, and he was referred for possible cystoscopy to rule out postsurgical abscess or other source of infection- before we started chemotherapy. Mr Kauffman reported that he has seen Dr. Lloyd. Dr Lloyd replaced the urinary stent and did notice lots of urinary debris. Mr Kauffman was started on long-term antibiotics with Hiprex 1 g by mouth daily. He began his first dose of docetaxel on 03/14/2018. He was not given Neulasta as he did not have insurance approval at the time of chemotherapy. He did have significant neutropenia on day 8 with an ANC of 600. He did not have symptoms and gradually recovered. He did qualify for Neulasta administration with cycle 2 and Concluded his chemotherapy e.g. 6 doses on 06/27/2018 He went to [facility] on 09/07/2018 and as per patient his patient was started on Zytiga/prednisone for one year in addition to Zoladex every 3 months as scans done at [facility] showed excellent response to chemotherapy but persistent lung nodule and pelvic lesion and his PSA done there was around 1. We will obtain follow-up note from [facility] and review. Patient denies any fever chills denies any nausea or vomiting denies any pelvic pain, denies any dysuria or hematuria. On 09/21/2018 patient had left ureteral stent replacement. Mr Kauffman went to [facility] for follow-up on 12/25/2018 and had choline C 11 scan done, when compared with one from 09/07/2018, showed increased choline uptake is again seen in the prostatectomy bed on the left and involving the posterior bladder base is essentially unchanged from the previous scan. The small lymph nodes with choline uptake seen on the previous scan are unchanged. The pulmonary infiltrate have decreased. No new sites of abnormal choline uptake are noted. He was Tolerating ADT with Zoladex and Zytiga/prednisone well. He went to [facility] for follow-up on 06/29/2019. He underwent PET/CT choline which showed likely tumor at the left of urethral vesicle junction has SUV of 4.5 compared to 3.4 on 12/25/2018. Nonspecific activity to the right of urethrovesical junction has SUV of 1.8 compared to 2.1 previously. Likely tumor involving left sided urinary bladder including the left ureterovesical junction has SUV of 6.2 compared to 6.6 previously. Likely metastatic activity in the proximal right external iliac lymph node has SUV of 2.6 versus 2.2 previously. Nonspecific activity along the right common iliac vessels and adjacent to lumbar degenerative changes as current SUV of 2.9 versus 2.1 previously and his PSA was 2.5. Bbased on these findings, Dr. Lewis recommended continue with Zoladex but discontinue Zytiga and taper off prednisone. Initiate xtandi and choline And underwent follow-up CT PET on December 27, 2019 at [facility] which showed disease progression when compared with scan done on June 28, 2019 and showed malignant appearing choline activity along the urinary bladder oneal has increased,, prominent disease in the left UVJ region has current SUV of 9.7 versus 6.2 on June 2019. Metastatic appearing nodularity in the fat to the right of the urinary bladder anteriorly has increased. Approximate 1.7 x 1.3 cm right external iliac node measuring 0.7 x 0.5 cm on June 28, 2019 and now with SUV of 6 compared to 2.6 at that time. A likely metastatic right common iliac node now measures 1.8 x 1.2 cm versus 1 x 0.7 cm on June 28, 2019. Multiple nodes in the thorax shows interval increase activity compared to June 28, 2019, these are nonspecific could be due to granulomatous inflammation. As far as his left pelvic pain is concern, which is under control and left nephrostomy tube was suggested rather than continuing with ureteral stent exchanges every couple of months. Mr Kauffman was seen by Dr. Lewis and MSI/BRCA 1 and 2 were checked and both came back negative- so no role of immunotherapy with pembrolizumab and olaparib. Clinical trial was also considered but considering patient's age and overall condition, further chemotherapy with cabazitaxel was recommended and patient agreed. And he was advised to continue Xtandi until cabazitaxel is planned. Mr Kauffman began his first cycle of cabazitaxel on February 21, 2020. His Zoladex was last given on 01/28/2020. Mr Kauffman is here today for followup. He is due for cycle 4 cabazitaxel (Jevtana) and Zoladex as well. His last Zoladex was on 01/28/2020. He reports that he is doing well overall. He did have a urinary stent replaced with Dr. Lloyd last . He has been on Levaquin since that time. Mrs. Kauffman reports that they did give a urinary sample today as they were concerned that he might have a urinary infection. That result is currently pending. He states overall he is doing well. He denies any pain. He has been eating well. He is active around the house. He states that his breathing is good. He has had no diarrhea or constipation. He continues to have intermittent hot flashes due to the Zoladex but states they are no worse than what is normal for him. He has been receiving the Jevtana and tolerating this well. His last dose was April 01, 2020. He had previously needed growth factor support for neutropenia however with his last treatment it is noted that his ANC prior to his chemotherapy was 4600 he did not receive the growth factor support and his ANC today is 5700. He denies any neuropathy. He states overall he is doing well. His ECOG is 1. Past Medical History: Type II diabetes Past Surgical History: Colonoscopy Radical retropubic prostatectomy Right knee surgery Left kidney stent replacement in 2019 Kidney stent replacement in 2017 Kidney stent replacement in 2018 Stent replacement is done every 2 monthes Allergies: Cipro, Penicillins, and Sulfa Antibiotics. Medications: AZO Yeast Plus 1 Tablet Oral daily PRN Hiprex 1 Tablet (of 1 G) Oral b.i.d. MetFORMIN HCl 1 Tablet (of 500 mg) Oral daily oxyCODONE-Acetaminophen 1 Tablet (of 5-325 mg) Oral q 4 to 6 hours PRN Vitamin C 1 Tablet (of 1 G) Oral daily Family History: Mr. Kauffman's mother at age 75. Mr. Kauffman's father at age 87. Mr. Kauffman has 2 brothers: 2 . Mr. Kauffman's first brother's polio. Another brother's coronary artery disease. Social History: Mr. Kauffman is and he is retired. Mr. Kauffman no longer smokes. He has no history of drinking. He has indicated exposure to the following products: chewing tobacco. Mr. Kauffman reports the following support systems: lives with spouse, significant other, family, or friends. His diet consists of regular meals. formerly chewed tobacco, quit in 2000. Review Of Symptoms: Constitutional Denies fevers, chills, night sweats, excessive fatigue or weight loss. Allergic/Immunologic No reactions. Eyes Denies significant visual changes. No diplopia. No amaurosis. ENMT Denies changes in hearing, sore throat, mouth sores, difficulty or changes in swallowing ability, and/or sinus drainage. Endocrine No diabetes, thyroid disease or hormone replacement. Denies hot flashes or night sweats. Hematologic/Lymphatic Denies easy bruising or bleeding. The patient denies any tender or palpable lymph nodes. Respiratory Denies dyspnea on exertion, chest pain, cough or hemoptysis. Denies orthopnea. Cardiovascular Denies anginal chest pain, palpitations or orthopnea. Gastrointestinal Denies nausea, vomiting, diarrhea, GI bleeding, or constipation. Denies change in bowel habits and/or stool color, no heartburn or early satiety. Genitourinary (M) Denies hematuria, dysuria. He has increased frequency but is improved overall. He does have occasional incontinence. Musculoskeletal Denies joint pain, swelling or redness. No decreased range of motion. Integumentary Denies chronic rashes, inflammation, ulcerations or skin changes. Neurologic Denies headache, blurred vision, and no areas of focal weakness or numbness. Normal gait. No sensory problems. Psychiatric Denies insomnia, depression, sherrill or mood swings. Vital Signs: Performed on Apr 22, 2020 13:41 Height - 67.00 in Weight - 220.8 lbs (LOW) BSA - 2.11 sq.m BMI - 34.58 (HIGH) Temperature - 98.5 F Pulse - 73 /min Respiration - 24 /min BP - 138/72 mm(hg) O2 Sat - 98 % Pain - 0,0 - Fully active, able to carry on all predisease activities without restrictions. (ECOG) Physical Examination: Constitutional Alert, oriented, no acute distress. Skin pink, warm and dry. Denies fever or chills. Head Normocephalic; atraumatic. Eyes Conjunctivae and sclerae are clear and without icterus. Pupils are reactive and equal. ENMT Sinuses are nontender. No oral exudates, ulcers, masses, thrush or mucositis. Oropharynx clear. Tongue normal. Neck Supple without masses or thyromegaly. No jugular venous distension. Hematologic/Lymphatic No petechiae or purpura. No tender or palpable lymph nodes in the cervical or supraclavicular areas. Respiratory Lungs are clear to auscultation without rhonchi or wheezing. Cardiovascular Regular rate and rhythm of heart without murmurs,clicks, gallops or rubs. Abdomen Non-tender, non-distended, no masses, or ascites. Good bowel sounds noted in all quads. No guarding or rebound tenderness. No pulsatile masses. Back/Spine Non-tender to palpation. Extremities No visible deformities, no cyanosis, clubbing or edema. Musculoskeletal No tenderness or swelling, normal range of motion without obvious weakness. Integumentary Has new rash in both axilla but left is worse than the right. Rash is noted to have some brown pigmentation in the top of the axilla area and redness in the lower area. No vesicles or wheels, slight raised lesions. He states it is not really itching, but occasionally does itch some. It is not painful but some tenderness on deep palpation. It started about 4-5 days ago. Neurologic No sensory or motor deficits, normal cerebellar function, normal gait. Psychiatric Alert and oriented times three. Coherent speech. Verbalizes understanding of our discussions today. Laboratory:Test performed on Apr 22, 2020 13:40 Ua Color Yellow Ua Appearance Hazy Ua pH 6 Ua Specific [place] 1.015 Ua Glucose Norm Ua Ketones Negative Ua Protein 3+ Ua Blood 3+ Ua Bilirubin 1+ Ua Urobilinogen 1 mg/dL Ua Nitrites Negative Ua Leukocyte Esterase 2+ Urine Culture <5,000 COLS/ML MIXED SUPERFICIAL SPRING.>= 3 TYPES OF GRAM POSITIVE ORGANISMS ON DAY 2. PROBABLE CONTAMINANTS. Ua Micro: WBC TOO NUMEROUS TO CNT /hpf Ua Micro: RBC 40-50 /hpf Ua Micro: Squam Epith Cells 0-4 Ua Micro: Bacteria 2+ Test performed on Feb 28, 2020 12:26 Sodium 141 mmol/L Potassium 4.0 mmol/L Chloride 104 mmol/L CO2 24 mmol/L Anion Gap 17.0 BUN 15 mg/dL Creatinine 0.9 mg/dL Cr Clearance (Est) 93.2200 mL/min Glucose 126 mg/dL Calcium 9.4 mg/dL Protein, Total 7.4 g/dL Albumin 4.4 g/dL Globulin 3.0 g/dL Bilirubin, Total 0.3 mg/dL ALT (SGPT) 13 U/L AST (SGOT) 15 U/L Alkaline Phosphatase 116 IU/L WBC 11.8 10 3/uL Manual Bands % 18.0 % RBC 4.61 10 6/uL HGB 13.3 g/dL Manual Lymphs % 21 % HCT 42.8 % Manual Monos % 7.0 % MCV 92.8 fL MCH 28.9 pg MCHC 31.1 g/dL RDW 14.6 % Platelet Count 256 10 3/cmm MPV 10.4 fL CBC Slide Review Slide Review Perform Manual Bands Abs 2.1 10 3/cmm Manual Neutrophils Abs 8.3 10 3/cmm Manual Monocytes Abs 0.8 10 3/cmm Manual Eosinophils Abs 0.2 10 3/cmm Test performed on Feb 20, 2020 10:24 Neutrophils 3.7 10 3/uL Lymphocytes 1.8 10 3/uL Monocytes 0.7 10 3/uL Eosinophils 0.4 10 3/uL Basophils 0.0 10 3/uL Neutrophil % 55.4 % Lymphocyte % 27.3 % Monocyte % 10.3 % Eosinophil % 5.9 % Basophils % 0.6 % NRBC % 0 % Test performed on Jan 25, 2020 09:18 PSA 6.500 ng/mL Impression: Recurrent prostate cancer status post cystoscopy and excision in February 2015 followed by combined androgen blockade with Zoladex and Casodex. Now with gradual increasing PSA , While on combined androgen blockade Initially he was diagnosed prostate cancer in 1999- at that time he underwent retropubic radical prostatectomy. Status post radiation therapy in 2010 for increasing PSA and lymphadenopathy. Hematuria/dysuria since February 2015. CT scan of abdomen pelvis done on 03/02/2018 showed soft tissue mass measuring 2.2 cm x 3.2 x 2.9 in the expected location of the prostate inseparable from the urinary bladder floor urinary bladder wall is diffusely thickened and there is a soft tissue attenuation between the soft tissue mass in the anterior infra levator rectal wall, rectal lesion not excluded Seen by Dr. Edwards on 10/24/2017 and his impression was changes in the rectum are probably due to prostate invasion rather than primary rectal lesion. 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 Mr Kauffman was seen by Dr Lloyd for persistent UTI symptoms post op and was placed on correction antibiotics. His symptoms resolved and he began recommended chemotherapy with docetaxel on 03/14/2018. Mr. Kauffman has tolerated the chemotherapy relatively well. He did have chemotherapy-induced neutropenia on day 8 of cycle 1. His initial ANC at time of treatment on 03/14/2018 was 13,300 on day 8 his ANC was [address] PET scan done on 05/06/2018 showed no evidence for recurrent or residual malignancy., Tiny scattered pelvic nodes are radiographically benign and FDG negative, no findings to indicate osseous metastatic disease and left-sided hydronephrosis is present and a ureteral catheter is in place. PSA checked on 05/15/2018 showed 1.81 compared to 6.49 on 03/14/2018 when chemotherapy with Taxotere was started And concluded his chemotherapy with Taxotere e.g. 6 doses on 06/27/2018 Status post left ureteral stent placement on 05/22/2018 Again replaced on 09/21/2018 Went to [facility] on 09/07/2018,Choline C 11 scan done on 09/07/2018 showed large choline avid recurrence in the prostatectomy bed involving the posterior bladder base has improved since prior exam, however suspicious new small focus of choline avid disease along the right posterior bladder wall. New choline avid node metastatic disease including a right supraclavicular node. And increasing pulmonary infiltrate and/or atelectasis in the posterior lower lobes with reactive choline activity. so he was started on Zytiga/prednisone for one year along with an 3 monthly Zoladex. Mr Kauffman returned to the [facility] on 12/25/2018 and had choline C 11 scan done on same date showed when compared with choline scan done on 09/07/2018, increased choline uptake is seen again in the prostatectomy bed on the left and involving the posterior bladder base is essentially unchanged from the previous scan. The small lymph nodes with choline uptake seen on the previous scans are unchanged the pulmonary infiltrates have decreased. No new sites of abnormal choline uptake are noted. Clinically, patient was doing reasonably, but recently had evidence of disease progression confirmed with CT PET choline and progressive PSA. Mr Kauffman went to [facility] for follow-up and now palliative chemotherapy with cabazitaxel is recommended. Mr Kauffman had disease progression on Xtandi, which he was tolerating well but presented with progressive disease and he was also on 3 monthly Zoladex. At that point, Mr Kauffman has discontinued Xtandi and role of cabazitaxel was discussed. The current treatment plan is cabazitaxel 20 mg/m??? every 3 weeks along with Neulasta to prevent chemotherapy-induced neutropenia as patient is a high risk. The initial plan was for him to receive 4 cycles of chemotherapy as recommended by [facility] and then he will go to clinic for follow-up evaluation including scans. Mr Kauffman was advised to pursue treatment with cabazitaxel with Neulasta support. Mr. Kauffman underwent right Port-A-Cath placement in the SVC/RA junction per Dr. Caballero at [facility] [place] on February 14, 2020. He began his first cycle on 02/21/2020. He continues with every 3-month Zoladex. His last injection was given on January 28, 2020. He is currently off of all prednisone. Plan: 1. Proceed with cycle 4 Jevtana (cabazitaxel). 2. Proceed with Zoladex 10.8 mg. 3. Hold Neulasta as his ANC is 5700 today. 4. Labs from April 18, 2020 were reviewed in detail and discussed with . Mrs. Kauffman a copy was given to them. WBC 9.4, hemoglobin 11.7, platelets 314,000 ANC is 5700 creatinine 1.0 LFTs were normal PSA was 2.81. His last PSA from March 12, 2020 was 4.37. His UA is currently pending at the time of visit. 5. He will continue his current dose of Levaquin until is completed. 6. He will return to [facility] May 09 as scheduled. 7. We will plan to see him back here in 3 weeks with CBC CMP and follow-up PSA. He was directed to contact us in the interim should anything change from his visit at the [facility]. 8. Mr. Kauffman has been encouraged to call us in the interim should questions or problems arise. 9. His last urinary stent change was April 14, 2020 per patient report. Signed By: Yesenia Gordon-, CNP Tom Alcazar MD <<Signature on File>>
[2020-04-29] MEDS: goserelin acetate 10.8 mg Implant IM (10:22)
[2020-04-29] MEDS: lidocaine 1% INJ 20 mL INJECTION (10:32)
[2020-05-12 15:42] LABS: Basophils % 0.6 %; Eosinophils # 0.2 10^3/uL (0.0-0.8); Eosinophils % 2.9 %; Hematocrit 40.2 % (42.0-52.0); Hemoglobin 11.7 g/dL (11.7-16.6); Lymphocytes # 1.4 10^3/uL (0.8-4.8); Lymphocytes % 22.3 %; Mean Corpuscular HGB Conc 29.1 g/dL (30.0-36.0); Mean Corpuscular Hemoglobin 27.4 pg (28.0-34.0); Mean Corpuscular Volume 94.1 fL (80-94); Mean Platelet Volume 10.5 fL (7.4-10.4); Monocytes # 0.6 10^3/uL (0.2-0.9); Monocytes % 9.8 %; Neutrophils # 4.02 10^3/uL (1.8-7.7); Neutrophils % 63.8 %; Nucleated Red Blood Cells % 0 %; Platelet Count 275 10^3/cmm (130-400); Red Blood Count 4.27 10^6/uL (4.1-5.3); Red Cell Distribution Width 17.3 % (12.1-15.1); White Blood Count 6.3 10^3/uL (4.0-10.0)
[2020-05-12 17:02] LABS: Alanine Aminotransferase 16 U/L (0-41); Albumin Level 3.8 g/dL (3.5-5.2); Alkaline Phosphatase 63 IU/L (40-130); Aspartate Amino Transferase 20 U/L (0-40); Blood Urea Nitrogen 15 mg/dL (8-23); Carbon Dioxide 23 mmol/L (22-29); Chloride 105 mmol/L (98-107); Globulin 3.1 g/dL (1.3-4.6); Glucose 110 mg/dL (65-115); Osmolality Calculated 297 mOsm/kg (285-295); Sodium 143 mmol/L (136-145); Total Bilirubin 0.3 mg/dL (0.15-1.2); Total Protein 6.9 g/dL (6.6-8.7)
[2020-05-12 17:28] LABS: Anion Gap 18.6 (5-19); Potassium 3.6 mmol/L (3.5-5.1)
[2020-05-13] MEDS: sodium chloride 0.9% 250 ML 999 ML IV (11:10)
--- NOTE | 2020-05-13 11:23 | ONC FU_ITS ---
Dr. Alcazar follow up note Patient: Alex Kauffman Unit #: [id number]: [id number] Dicatated By: Tom Alczaar M.D.Date of Visit:May 13, 2020 Onc Med Follow-up/Prog Note History of Present Illness: Mr. Kauffman is a 79-year-old gentleman with long-standing history of prostate cancer. Initially, he was diagnosed with prostate cancer in May 2000. At that time, his PSA was 9 and a biopsy showed 2+ 2/3+4/3+3 with the largest volume equal 3+4. Underwent radical retropubic prostatectomy in June 2000. He was followed with PSA postoperatively and during follow-up it was noted his PSA was increasing but slowly. Finally in 2010 it was felt he needed further treatment. He was treated with radiation therapy which he completed in March 2011. It showed good response with PSA down to 0.05. During follow-up in November 2012, his PSA gone up to 0.21; in May 2013 up to 0.35 and in November 2013 it was 0.93. In February 2015, he underwent cystoscopic examination found to have local recurrence. It was resected and confirmed to be poorly differentiated prostate cancer. At that time he was started on combined androgen blockade postop. His treatment was complicated by recurrent hematuria and burning micturition. Follow-up lab showed a gradual increase in his PSA level and from 07/06/2017 it was 2.5 earlier while on combined androgen blockade. On 12/21/2017, he underwent cystoscopy with transurethral resection of a bladder lesion, cystourethroscopy with placement of ureteral stent on left side and dilation of urethra. 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 Mr Kauffman has had persistent urine tract infection and recently finished course of Levaquin. Repeat urinalysis on 02/16/2018 showed persistent urine tract infection: leukoesterase positive and persistent RBCs and WBCs on microscopic evaluation. Mr Kauffman reported he did notice pus drops every time after he finish his urination. His case was discussed with Dr. Lloyd, urologist, and he was referred for possible cystoscopy to rule out postsurgical abscess or other source of infection- before we started chemotherapy. Mr Kauffman reported that he has seen Dr. Lloyd. Dr Lloyd replaced the urinary stent and did notice lots of urinary debris. Mr Kauffman was started on long-term antibiotics with Hiprex 1 g by mouth daily. He began his first dose of docetaxel on 03/14/2018. He was not given Neulasta as he did not have insurance approval at the time of chemotherapy. He did have significant neutropenia on day 8 with an ANC of 600. He did not have symptoms and gradually recovered. He did qualify for Neulasta administration with cycle 2 and Concluded his chemotherapy e.g. 6 doses on 06/27/2018 He went to [facility] on 09/07/2018 and as per patient his patient was started on Zytiga/prednisone for one year in addition to Zoladex every 3 months as scans done at [facility] showed excellent response to chemotherapy but persistent lung nodule and pelvic lesion and his PSA done there was around 1. We will obtain follow-up note from [facility] and review. Patient denies any fever chills denies any nausea or vomiting denies any pelvic pain, denies any dysuria or hematuria. On 09/21/2018 patient had left ureteral stent replacement. Mr Kauffman went to [facility] for follow-up on 12/25/2018 and had choline C 11 scan done, when compared with one from 09/07/2018, showed increased choline uptake is again seen in the prostatectomy bed on the left and involving the posterior bladder base is essentially unchanged from the previous scan. The small lymph nodes with choline uptake seen on the previous scan are unchanged. The pulmonary infiltrate have decreased. No new sites of abnormal choline uptake are noted. He was Tolerating ADT with Zoladex and Zytiga/prednisone well. He went to [facility] for follow-up on 06/29/2019. He underwent PET/CT choline which showed likely tumor at the left of urethral vesicle junction has SUV of 4.5 compared to 3.4 on 12/25/2018. Nonspecific activity to the right of urethrovesical junction has SUV of 1.8 compared to 2.1 previously. Likely tumor involving left sided urinary bladder including the left ureterovesical junction has SUV of 6.2 compared to 6.6 previously. Likely metastatic activity in the proximal right external iliac lymph node has SUV of 2.6 versus 2.2 previously. Nonspecific activity along the right common iliac vessels and adjacent to lumbar degenerative changes as current SUV of 2.9 versus 2.1 previously and his PSA was 2.5. Bbased on these findings, Dr. Lewis recommended continue with Zoladex but discontinue Zytiga and taper off prednisone. Initiate xtandi and choline And underwent follow-up CT PET on December 27, 2019 at [facility] which showed disease progression when compared with scan done on June 28, 2019 and showed malignant appearing choline activity along the urinary bladder oneal has increased,, prominent disease in the left UVJ region has current SUV of 9.7 versus 6.2 on June 2019. Metastatic appearing nodularity in the fat to the right of the urinary bladder anteriorly has increased. Approximate 1.7 x 1.3 cm right external iliac node measuring 0.7 x 0.5 cm on June 28, 2019 and now with SUV of 6 compared to 2.6 at that time. A likely metastatic right common iliac node now measures 1.8 x 1.2 cm versus 1 x 0.7 cm on June 28, 2019. Multiple nodes in the thorax shows interval increase activity compared to June 28, 2019, these are nonspecific could be due to granulomatous inflammation. As far as his left pelvic pain is concern, which is under control and left nephrostomy tube was suggested rather than continuing with ureteral stent exchanges every couple of months. Mr Kauffman was seen by Dr. Lewis and MSI/BRCA 1 and 2 were checked and both came back negative- so no role of immunotherapy with pembrolizumab and olaparib. Clinical trial was also considered but considering patient's age and overall condition, further chemotherapy with cabazitaxel was recommended and patient agreed. And he was advised to continue Xtandi until cabazitaxel is planned. Mr Kauffman began his first cycle of cabazitaxel on February 21, 2020. His Zoladex was last given on 01/28/2020. Patient underwent choline CT PET scan after 4 doses of Jevtana at [facility] which was done on May 09, 2020 showed stable to mildly improved choline avid bladder and pelvic node metastatic disease. Enlarging subcentimeter left periaortic retroperitoneal nodes with low-grade colon activity, technically indeterminate for new nodes metastatic disease., Could be reactive. Patient was evaluated by on May 13, 2020 and his recommendations were to continue with Jevtana for 4 more cycles and then repeat: CT PET scan and also continue with 3 monthly Zoladex. And continue left ureteral stent exchanges locally Came for follow-up, denies any specific complaints, no fever chills, no nausea or vomiting, no diarrhea or constipation, no hematuria, no melena hematochezia, no hemoptysis or hematemesis, appetite is good, tolerating Jevtana every 3 weeks, and along with 3 monthly Zoladex. Medications: AZO Yeast Plus 1 Tablet Oral daily PRN, Hiprex 1 Tablet (of 1 G) Oral b.i.d., MetFORMIN HCl 1 Tablet (of 500 mg) Oral daily, oxyCODONE-Acetaminophen 1 Tablet (of 5-325 mg) Oral q 4 to 6 hours PRN, Vitamin C 1 Tablet (of 1 G) Oral daily Allergies: Cipro, Penicillins, and Sulfa Antibiotics. Review of Systems: Constitutional - Appetite is good and weight is stable. No fever, chills, hot flashes, or night sweats. Energy level is fair, ENMT - No sinus congestion/drainage. No mouth sores. No sore throat or difficulty swallowing, Hematologic/Lymphatic - No abnormal bruising or bleeding, Respiratory - Shortness of breath with exertion. No cough. No pleuritic pain or hemoptysis, Cardiovascular - No angina pain. No palpitations, Gastrointestinal - No nausea or vomiting. No heartburn or acid reflux. No diarrhea or constipation. No blood in the stool or black stools, Genitourinary (M) - Patient reports dysuria. No hematuria. No urinary frequency. Occasional urgency and incontinence, Musculoskeletal - No joint or bone pain, Neurologic - No headache or dizziness. No numbness/paresthesias or other focal neurologic symptoms, Psychiatric - No anxiety or depression. No insomnia. Vital Signs: Performed on May 13, 2020 10:10 Height - 67.00 in Weight - 218.0 lbs (LOW) BSA - 2.10 sq.m BMI - 34.14 (HIGH) Temperature - 97.5 F (LOW) Pulse - 77 /min Respiration - 20 /min BP - 142/68 mm(hg) (HIGH) O2 Sat - 97 % Pain - 0 Performance Status: 0 - Fully active, able to carry on all predisease activities without restrictions. (ECOG) Physical Examination: ENMT - No mouth sores, no thrush, no jaundice, Respiratory - Lungs are clear, Cardiovascular - Regular rate and rhythm of heart, Abdomen - Soft, bowel sounds present, Extremities - No visible edema. Lab/Imaging: Test performed on Apr 22, 2020 13:40 Ua Color Yellow Ua Appearance Hazy Ua pH 6 Ua Specific [place] 1.015 Ua Glucose Norm Ua Ketones Negative Ua Protein 3+ Ua Blood 3+ Ua Bilirubin 1+ Ua Urobilinogen 1 mg/dL Ua Nitrites Negative Ua Leukocyte Esterase 2+ Ua Micro: WBC TOO NUMEROUS TO CNT /hpf Ua Micro: RBC 40-50 /hpf Ua Micro: Squam Epith Cells 0-4 Ua Micro: Bacteria 2+ Test performed on Feb 28, 2020 12:26 Sodium 141 mmol/L Potassium 4.0 mmol/L Chloride 104 mmol/L CO2 24 mmol/L Anion Gap 17.0 BUN 15 mg/dL Creatinine 0.9 mg/dL Cr Clearance (Est) 93.2200 mL/min Glucose 126 mg/dL Calcium 9.4 mg/dL Protein, Total 7.4 g/dL Albumin 4.4 g/dL Globulin 3.0 g/dL Bilirubin, Total 0.3 mg/dL ALT (SGPT) 13 U/L AST (SGOT) 15 U/L Alkaline Phosphatase 116 IU/L WBC 11.8 10 3/uL Manual Bands % 18.0 % RBC 4.61 10 6/uL HGB 13.3 g/dL Manual Lymphs % 21 % HCT 42.8 % Manual Monos % 7.0 % MCV 92.8 fL MCH 28.9 pg MCHC 31.1 g/dL RDW 14.6 % Platelet Count 256 10 3/cmm MPV 10.4 fL CBC Slide Review Slide Review Perform Manual Bands Abs 2.1 10 3/cmm Manual Neutrophils Abs 8.3 10 3/cmm Manual Monocytes Abs 0.8 10 3/cmm Manual Eosinophils Abs 0.2 10 3/cmm Test performed on Feb 20, 2020 10:24 Neutrophils 3.7 10 3/uL Lymphocytes 1.8 10 3/uL Monocytes 0.7 10 3/uL Eosinophils 0.4 10 3/uL Basophils 0.0 10 3/uL Neutrophil % 55.4 % Lymphocyte % 27.3 % Monocyte % 10.3 % Eosinophil % 5.9 % Basophils % 0.6 % NRBC % 0 % Test performed on Jan 25, 2020 09:18 PSA 6.500 ng/mL Impression: Recurrent prostate cancer status post cystoscopy and excision in February 2015 followed by combined androgen blockade with Zoladex and Casodex. Now with gradual increasing PSA , While on combined androgen blockade Initially he was diagnosed prostate cancer in 1999- at that time he underwent retropubic radical prostatectomy. Status post radiation therapy in 2010 for increasing PSA and lymphadenopathy. Hematuria/dysuria since February 2015. CT scan of abdomen pelvis done on 03/02/2018 showed soft tissue mass measuring 2.2 cm x 3.2 x 2.9 in the expected location of the prostate inseparable from the urinary bladder floor urinary bladder wall is diffusely thickened and there is a soft tissue attenuation between the soft tissue mass in the anterior infra levator rectal wall, rectal lesion not excluded Seen by Dr. Edwards on 10/24/2017 and his impression was changes in the rectum are probably due to prostate invasion rather than primary rectal lesion. 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 Mr Kauffman was seen by Dr Lloyd for persistent UTI symptoms post op and was placed on exterminator antibiotics. His symptoms resolved and he began recommended chemotherapy with docetaxel on 03/14/2018. Mr. Kauffman has tolerated the chemotherapy relatively well. He did have chemotherapy-induced neutropenia on day 8 of cycle 1. His initial ANC at time of treatment on 03/14/2018 was 13,300 on day 8 his ANC was [address] PET scan done on 05/06/2018 showed no evidence for recurrent or residual malignancy., Tiny scattered pelvic nodes are radiographically benign and FDG negative, no findings to indicate osseous metastatic disease and left-sided hydronephrosis is present and a ureteral catheter is in place. PSA checked on 05/15/2018 showed 1.81 compared to 6.49 on 03/14/2018 when chemotherapy with Taxotere was started And concluded his chemotherapy with Taxotere e.g. 6 doses on 06/27/2018 Status post left ureteral stent placement on 05/22/2018 Again replaced on 09/21/2018 Went to [facility] on 09/07/2018,Choline C 11 scan done on 09/07/2018 showed large choline avid recurrence in the prostatectomy bed involving the posterior bladder base has improved since prior exam, however suspicious new small focus of choline avid disease along the right posterior bladder wall. New choline avid node metastatic disease including a right supraclavicular node. And increasing pulmonary infiltrate and/or atelectasis in the posterior lower lobes with reactive choline activity. so he was started on Zytiga/prednisone for one year along with an 3 monthly Zoladex. Mr Kauffman returned to the [facility] on 12/25/2018 and had choline C 11 scan done on same date showed when compared with choline scan done on 09/07/2018, increased choline uptake is seen again in the prostatectomy bed on the left and involving the posterior bladder base is essentially unchanged from the previous scan. The small lymph nodes with choline uptake seen on the previous scans are unchanged the pulmonary infiltrates have decreased. No new sites of abnormal choline uptake are noted. Clinically, patient was doing reasonably, but recently had evidence of disease progression confirmed with CT PET choline and progressive PSA. Mr Kauffman went to [facility] for follow-up and now palliative chemotherapy with cabazitaxel is recommended. Mr Kauffman had disease progression on Xtandi, which he was tolerating well but presented with progressive disease and he was also on 3 monthly Zoladex. At that point, Mr Kauffman has discontinued Xtandi and role of cabazitaxel was discussed. The current treatment plan is cabazitaxel 20 mg/m??? every 3 weeks along with Neulasta to prevent chemotherapy-induced neutropenia as patient is a high risk. The initial plan was for him to receive 4 cycles of chemotherapy as recommended by [facility] and then he will go to clinic for follow-up evaluation including scans. Mr Kauffman was advised to pursue treatment with cabazitaxel with Neulasta support. Mr. Kauffman underwent right Port-A-Cath placement in the SVC/RA junction per Dr. Caball[place] [facility] [place] February 14, 2020. He began his first cycle on 02/21/2020. He continues with every 3-month Zoladex. His last injection was given on January 28, 2020. He is currently off of all prednisone. Plan: Discussed with patient regarding his labs white blood count 6.3 hemoglobin 11.7 hematocrit 40.2 platelets 275,000 CMP within normal limits PSA 2.47 compared to 2.8 on April 18, 2020 Clinically, patient is doing well with no signs symptom suggestive of disease progression, confirmed with his follow-up: CT PET scan done at [facility] recently and his PSA continues to improve. And he is tolerating Jevtana well and as per Dr. Lewis's evaluation, Jevtana for 4 more cycles was recommended followed by: CT PET scan in July 2020 and also advised to continue Zoladex every 3 months. We will proceed with this additional cycle #1/4 with Jevtana today and then he will return to clinic in 2 weeks with CBC CMP, patient has recurrent urine tract infection is on oral antibiotics and earlier he was given Neulasta after Jevtana which he took it with the first 2 cycles but not with the last 2 cycles and patient is reluctant to take Neulasta but concern is with recurrent urine tract infection chemotherapy-induced neutropenia can be risky. Return to clinic in 2 weeks with CBC CMP if there is a neutropenia/leukopenia, will consider Neulasta with subsequent chemotherapy cycles. Signed By: Tom Alcazar M.D. <<Signature on File>>
== END 2020-05-14 23:59 | disposition home or self-care (01) ==
LOC: ONCMED 05:35
PROVIDERS: Nurse Practitioner; PCP Nurse Practitioner; Visit Provider Internal Medicine Hematology & Oncology
DX: Z51.11 Encounter for antineoplastic chemotherapy (principal); C61 Malignant neoplasm of prostate; Z51.81 Encounter for therapeutic drug level monitoring; Z79.899 Other long term (current) drug therapy; R35.0 Frequency of micturition; R32 Unspecified urinary incontinence; Z96.0 Presence of urogenital implants; Z79.2 Long term (current) use of antibiotics; Z87.891 Personal history of nicotine dependence; Z79.818 Long term (current) use of other agents affecting estrogen receptors and estrogen levels; Z92.3 Personal history of irradiation
CPT/HCPCS: 36415; 80053; 81001; 84153; 85025; 87086; 87635; 96367; 96372; 96402; 96413; 99214; J1100; J1200; J2469; J3490; J7050; J9043; J9202

== ENCOUNTER 2020-06-03 05:24 | Outpatient (RCR) | payer MEDICARE, OTHER, SELFPAY ==
[2020-05-26 14:20] LABS: Basophils % 0.6 %; Eosinophils # 0.1 10^3/uL (0.0-0.8); Eosinophils % 1.9 %; Hematocrit 38.5 % (42.0-52.0); Hemoglobin 11.6 g/dL (11.7-16.6); Lymphocytes # 1.8 10^3/uL (0.8-4.8); Lymphocytes % 50.8 %; Mean Corpuscular HGB Conc 30.1 g/dL (30.0-36.0); Mean Corpuscular Hemoglobin 27.4 pg (28.0-34.0); Mean Platelet Volume 11.1 fL (7.4-10.4); Monocytes # 0.7 10^3/uL (0.2-0.9); Monocytes % 18.3 %; Neutrophils # 1.01 10^3/uL (1.8-7.7); Neutrophils % 28.1 %; Nucleated Red Blood Cells % 0 %; Platelet Count 293 10^3/cmm (130-400); Red Blood Count 4.23 10^6/uL (4.1-5.3); Red Cell Distribution Width 16.9 % (12.1-15.1); White Blood Count 3.6 10^3/uL (4.0-10.0)
[2020-05-26 14:58] LABS: Alanine Aminotransferase 20 U/L (0-41); Alkaline Phosphatase 65 IU/L (40-130); Anion Gap 16.7 (5-19); Aspartate Amino Transferase 16 U/L (0-40); Blood Urea Nitrogen 16 mg/dL (8-23); Carbon Dioxide 24 mmol/L (22-29); Chloride 105 mmol/L (98-107); Globulin 2.7 g/dL (1.3-4.6); Glucose 127 mg/dL (65-115); Osmolality Calculated 297 mOsm/kg (285-295); Potassium 3.7 mmol/L (3.5-5.1); Sodium 142 mmol/L (136-145); Total Bilirubin 0.3 mg/dL (0.15-1.2); Total Protein 6.7 g/dL (6.6-8.7)
--- NOTE | 2020-05-27 17:28 | ONC FU_ITS ---
Dr. Alcazar follow up note Patient: Alex Kauffman Unit #: [id number]: 1940 Dicatated By: Tom Alcazar M.D.Date of Visit:May 27, 2020 Onc Med Follow-up/Prog Note History of Present Illness: Mr. Kauffman is a 79-year-old gentleman with long-standing history of prostate cancer. Initially, he was diagnosed with prostate cancer in May 2000. At that time, his PSA was 9 and a biopsy showed 2+ 2/3+4/3+3 with the largest volume equal 3+4. Underwent radical retropubic prostatectomy in June 2000. He was followed with PSA postoperatively and during follow-up it was noted his PSA was increasing but slowly. Finally in 2010 it was felt he needed further treatment. He was treated with radiation therapy which he completed in March 2011. It showed good response with PSA down to 0.05. During follow-up in November 2012, his PSA gone up to 0.21; in May 2013 up to 0.35 and in November 2013 it was 0.93. In February 2015, he underwent cystoscopic examination found to have local recurrence. It was resected and confirmed to be poorly differentiated prostate cancer. At that time he was started on combined androgen blockade postop. His treatment was complicated by recurrent hematuria and burning micturition. Follow-up lab showed a gradual increase in his PSA level and from 07/06/2017 it was 2.5 earlier while on combined androgen blockade. On 12/21/2017, he underwent cystoscopy with transurethral resection of a bladder lesion, cystourethroscopy with placement of ureteral stent on left side and dilation of urethra. 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 Mr Kauffman has had persistent urine tract infection and recently finished course of Levaquin. Repeat urinalysis on 02/16/2018 showed persistent urine tract infection: leukoesterase positive and persistent RBCs and WBCs on microscopic evaluation. Mr Kauffman reported he did notice pus drops every time after he finish his urination. His case was discussed with Dr. Lloyd, urologist, and he was referred for possible cystoscopy to rule out postsurgical abscess or other source of infection- before we started chemotherapy. Mr Kauffman reported that he has seen Dr. Lloyd. Dr Lloyd replaced the urinary stent and did notice lots of urinary debris. Mr Kauffman was started on long-term antibiotics with Hiprex 1 g by mouth daily. He began his first dose of docetaxel on 03/14/2018. He was not given Neulasta as he did not have insurance approval at the time of chemotherapy. He did have significant neutropenia on day 8 with an ANC of 600. He did not have symptoms and gradually recovered. He did qualify for Neulasta administration with cycle 2 and Concluded his chemotherapy e.g. 6 doses on 06/27/2018 He went to [facility] on 09/07/2018 and as per patient his patient was started on Zytiga/prednisone for one year in addition to Zoladex every 3 months as scans done at [facility] showed excellent response to chemotherapy but persistent lung nodule and pelvic lesion and his PSA done there was around 1. We will obtain follow-up note from [facility] and review. Patient denies any fever chills denies any nausea or vomiting denies any pelvic pain, denies any dysuria or hematuria. On 09/21/2018 patient had left ureteral stent replacement. Mr Kauffman went to [facility] for follow-up on 12/25/2018 and had choline C 11 scan done, when compared with one from 09/07/2018, showed increased choline uptake is again seen in the prostatectomy bed on the left and involving the posterior bladder base is essentially unchanged from the previous scan. The small lymph nodes with choline uptake seen on the previous scan are unchanged. The pulmonary infiltrate have decreased. No new sites of abnormal choline uptake are noted. He was Tolerating ADT with Zoladex and Zytiga/prednisone well. He went to [facility] for follow-up on 06/29/2019. He underwent PET/CT choline which showed likely tumor at the left of urethral vesicle junction has SUV of 4.5 compared to 3.4 on 12/25/2018. Nonspecific activity to the right of urethrovesical junction has SUV of 1.8 compared to 2.1 previously. Likely tumor involving left sided urinary bladder including the left ureterovesical junction has SUV of 6.2 compared to 6.6 previously. Likely metastatic activity in the proximal right external iliac lymph node has SUV of 2.6 versus 2.2 previously. Nonspecific activity along the right common iliac vessels and adjacent to lumbar degenerative changes as current SUV of 2.9 versus 2.1 previously and his PSA was 2.5. Bbased on these findings, Dr. Lewis recommended continue with Zoladex but discontinue Zytiga and taper off prednisone. Initiate xtandi and choline And underwent follow-up CT PET on December 27, 2019 at [facility] which showed disease progression when compared with scan done on June 28, 2019 and showed malignant appearing choline activity along the urinary bladder oneal has increased,, prominent disease in the left UVJ region has current SUV of 9.7 versus 6.2 on June 2019. Metastatic appearing nodularity in the fat to the right of the urinary bladder anteriorly has increased. Approximate 1.7 x 1.3 cm right external iliac node measuring 0.7 x 0.5 cm on June 28, 2019 and now with SUV of 6 compared to 2.6 at that time. A likely metastatic right common iliac node now measures 1.8 x 1.2 cm versus 1 x 0.7 cm on June 28, 2019. Multiple nodes in the thorax shows interval increase activity compared to June 28, 2019, these are nonspecific could be due to granulomatous inflammation. As far as his left pelvic pain is concern, which is under control and left nephrostomy tube was suggested rather than continuing with ureteral stent exchanges every couple of months. Mr Kauffman was seen by Dr. Lewis and MSI/BRCA 1 and 2 were checked and both came back negative- so no role of immunotherapy with pembrolizumab and olaparib. Clinical trial was also considered but considering patient's age and overall condition, further chemotherapy with cabazitaxel was recommended and patient agreed. And he was advised to continue Xtandi until cabazitaxel is planned. Mr Kauffman began his first cycle of cabazitaxel on February 21, 2020. His Zoladex was last given on 01/28/2020. Patient underwent choline CT PET scan after 4 doses of Jevtana at [facility] which was done on May 09, 2020 showed stable to mildly improved choline avid bladder and pelvic node metastatic disease. Enlarging subcentimeter left periaortic retroperitoneal nodes with low-grade colon activity, technically indeterminate for new nodes metastatic disease., Could be reactive. Patient was evaluated by on May 13, 2020 and his recommendations were to continue with Jevtana for 4 more cycles and then repeat: CT PET scan and also continue with 3 monthly Zoladex. And continue left ureteral stent exchanges locally Came for follow-up, denies any specific complaints, no fever chills, no nausea or vomiting, no diarrhea constipation Medications: AZO Yeast Plus 1 Tablet Oral daily PRN, Hiprex 1 Tablet (of 1 G) Oral b.i.d., MetFORMIN HCl 1 Tablet (of 500 mg) Oral daily, oxyCODONE-Acetaminophen 1 Tablet (of 5-325 mg) Oral q 4 to 6 hours PRN, Vitamin C 1 Tablet (of 1 G) Oral daily Allergies: Cipro, Penicillins, and Sulfa Antibiotics. Review of Systems: Review of Systems is not available for this patient. Vital Signs: Performed on May 27, 2020 13:18 Height - 67.00 in Weight - 218.2 lbs (HIGH) BSA - 2.10 sq.m BMI - 34.18 (HIGH) Temperature - 97.2 F (LOW) Pulse - 79 /min Respiration - 20 /min BP - 128/70 mm(hg) O2 Sat - 95 % (LOW) Pain - 0 Performance Status: 0 - Fully active, able to carry on all predisease activities without restrictions. (ECOG) Physical Examination: ENMT - No mouth sores, no thrush, no jaundice, Respiratory - Lungs are clear, Cardiovascular - Regular rate and rhythm of heart, Abdomen - Soft, bowel sounds present, Extremities - No visible edema. Lab/Imaging: Test performed on Apr 22, 2020 13:40 Ua Color Yellow Ua Appearance Hazy Ua pH 6 Ua Specific [place] 1.015 Ua Glucose Norm Ua Ketones Negative Ua Protein 3+ Ua Blood 3+ Ua Bilirubin 1+ Ua Urobilinogen 1 mg/dL Ua Nitrites Negative Ua Leukocyte Esterase 2+ Ua Micro: WBC TOO NUMEROUS TO CNT /hpf Ua Micro: RBC 40-50 /hpf Ua Micro: Squam Epith Cells 0-4 Ua Micro: Bacteria 2+ Test performed on Feb 28, 2020 12:26 Sodium 141 mmol/L Potassium 4.0 mmol/L Chloride 104 mmol/L CO2 24 mmol/L Anion Gap 17.0 BUN 15 mg/dL Creatinine 0.9 mg/dL Cr Clearance (Est) 93.2200 mL/min Glucose 126 mg/dL Calcium 9.4 mg/dL Protein, Total 7.4 g/dL Albumin 4.4 g/dL Globulin 3.0 g/dL Bilirubin, Total 0.3 mg/dL ALT (SGPT) 13 U/L AST (SGOT) 15 U/L Alkaline Phosphatase 116 IU/L WBC 11.8 10 3/uL Manual Bands % 18.0 % RBC 4.61 10 6/uL HGB 13.3 g/dL Manual Lymphs % 21 % HCT 42.8 % Manual Monos % 7.0 % MCV 92.8 fL MCH 28.9 pg MCHC 31.1 g/dL RDW 14.6 % Platelet Count 256 10 3/cmm MPV 10.4 fL CBC Slide Review Slide Review Perform Manual Bands Abs 2.1 10 3/cmm Manual Neutrophils Abs 8.3 10 3/cmm Manual Monocytes Abs 0.8 10 3/cmm Manual Eosinophils Abs 0.2 10 3/cmm Test performed on Feb 20, 2020 10:24 Neutrophils 3.7 10 3/uL Lymphocytes 1.8 10 3/uL Monocytes 0.7 10 3/uL Eosinophils 0.4 10 3/uL Basophils 0.0 10 3/uL Neutrophil % 55.4 % Lymphocyte % 27.3 % Monocyte % 10.3 % Eosinophil % 5.9 % Basophils % 0.6 % NRBC % 0 % Test performed on Jan 25, 2020 09:18 PSA 6.500 ng/mL Impression: Recurrent prostate cancer status post cystoscopy and excision in February 2015 followed by combined androgen blockade with Zoladex and Casodex. Now with gradual increasing PSA , While on combined androgen blockade Initially he was diagnosed prostate cancer in 1999- at that time he underwent retropubic radical prostatectomy. Status post radiation therapy in 2010 for increasing PSA and lymphadenopathy. Hematuria/dysuria since February 2015. CT scan of abdomen pelvis done on 03/02/2018 showed soft tissue mass measuring 2.2 cm x 3.2 x 2.9 in the expected location of the prostate inseparable from the urinary bladder floor urinary bladder wall is diffusely thickened and there is a soft tissue attenuation between the soft tissue mass in the anterior infra levator rectal wall, rectal lesion not excluded Seen by Dr. Edwards on 10/24/2017 and his impression was changes in the rectum are probably due to prostate invasion rather than primary rectal lesion. 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 Mr Kauffman was seen by Dr Lloyd for persistent UTI symptoms post op and was placed on golf range attendant antibiotics. His symptoms resolved and he began recommended chemotherapy with docetaxel on 03/14/2018. Mr. Kauffman has tolerated the chemotherapy relatively well. He did have chemotherapy-induced neutropenia on day 8 of cycle 1. His initial ANC at time of treatment on 03/14/2018 was 13,300 on day 8 his ANC was 600[address] CT PET scan done on 05/06/2018 showed no evidence for recurrent or residual malignancy., Tiny scattered pelvic nodes are radiographically benign and FDG negative, no findings to indicate osseous metastatic disease and left-sided hydronephrosis is present and a ureteral catheter is in place. PSA checked on 05/15/2018 showed 1.81 compared to 6.49 on 03/14/2018 when chemotherapy with Taxotere was started And concluded his chemotherapy with Taxotere e.g. 6 doses on 06/27/2018 Status post left ureteral stent placement on 05/22/2018 Again replaced on 09/21/2018 Went to [facility] on 09/07/2018,Choline C 11 scan done on 09/07/2018 showed large choline avid recurrence in the prostatectomy bed involving the posterior bladder base has improved since prior exam, however suspicious new small focus of choline avid disease along the right posterior bladder wall. New choline avid node metastatic disease including a right supraclavicular node. And increasing pulmonary infiltrate and/or atelectasis in the posterior lower lobes with reactive choline activity. so he was started on Zytiga/prednisone for one year along with an 3 monthly Zoladex. Mr Kauffman returned to the [facility] on 12/25/2018 and had choline C 11 scan done on same date showed when compared with choline scan done on 09/07/2018, increased choline uptake is seen again in the prostatectomy bed on the left and involving the posterior bladder base is essentially unchanged from the previous scan. The small lymph nodes with choline uptake seen on the previous scans are unchanged the pulmonary infiltrates have decreased. No new sites of abnormal choline uptake are noted. Clinically, patient was doing reasonably, but recently had evidence of disease progression confirmed with CT PET choline and progressive PSA. Mr Kauffman went to [facility] for follow-up and now palliative chemotherapy with cabazitaxel is recommended. Mr Kauffman had disease progression on Xtandi, which he was tolerating well but presented with progressive disease and he was also on 3 monthly Zoladex. At that point, Mr Kauffman has discontinued Xtandi and role of cabazitaxel was discussed. The current treatment plan is cabazitaxel 20 mg/m??? every 3 weeks along with Neulasta to prevent chemotherapy-induced neutropenia as patient is a high risk. The initial plan was for him to receive 4 cycles of chemotherapy as recommended by [facility] and then he will go to clinic for follow-up evaluation including scans. Mr Kauffman was advised to pursue treatment with cabazitaxel with Neulasta support. Mr. Kauffman underwent right Port-A-Cath placement in the SVC/RA junction per Dr. Caballero at [facility] on February 14, 2020. He began his first cycle on 02/21/2020. He continues with every 3-month Zoladex. His last injection was given on January 28, 2020. He is currently off of all prednisone. Plan: Discussed with patient regarding his labs white blood count 3.6 hemoglobin 11.6 hematocrit 38.5 platelets 203,000 ANC 1010, CMP within normal limits PSA 2.3 Clinically, patient doing well with no new signs symptoms, tolerating Jevtana well. His blood count is but with expected leukopenia/neutropenia clinic in 1 week with CBC CMP if it shows resolution of leukopenia neutropenia he will see his next cycle of Jevtana. Signed By: Tom Alcazar M.D. <<Signature on File>>
[2020-06-02 14:54] LABS: Basophils # 0.1 10^3/uL (0.0-0.1); Basophils % 0.8 %; Eosinophils # 0.1 10^3/uL (0.0-0.8); Eosinophils % 1.3 %; Hematocrit 40.7 % (42.0-52.0); Hemoglobin 12.1 g/dL (11.7-16.6); Lymphocytes # 2.4 10^3/uL (0.8-4.8); Lymphocytes % 28.2 %; Mean Corpuscular HGB Conc 29.7 g/dL (30.0-36.0); Mean Corpuscular Hemoglobin 26.8 pg (28.0-34.0); Mean Platelet Volume 10.7 fL (7.4-10.4); Monocytes # 0.9 10^3/uL (0.2-0.9); Monocytes % 10.9 %; Neutrophils # 4.84 10^3/uL (1.8-7.7); Neutrophils % 58.2 %; Nucleated Red Blood Cells % 0 %; Platelet Count 350 10^3/cmm (130-400); Red Blood Count 4.52 10^6/uL (4.1-5.3); Red Cell Distribution Width 17.2 % (12.1-15.1); White Blood Count 8.3 10^3/uL (4.0-10.0)
[2020-06-02 15:25] LABS: Alanine Aminotransferase 12 U/L (0-41); Albumin Level 3.9 g/dL (3.5-5.2); Alkaline Phosphatase 66 IU/L (40-130); Anion Gap 17.8 (5-19); Aspartate Amino Transferase 15 U/L (0-40); Blood Urea Nitrogen 17 mg/dL (8-23); Calcium 9.3 mg/dL (8.5-10.5); Carbon Dioxide 24 mmol/L (22-29); Chloride 104 mmol/L (98-107); Globulin 3.4 g/dL (1.3-4.6); Glucose 95 mg/dL (65-115); Osmolality Calculated 295 mOsm/kg (285-295); Potassium 3.8 mmol/L (3.5-5.1); Sodium 142 mmol/L (136-145); Total Bilirubin 0.3 mg/dL (0.15-1.2); Total Protein 7.3 g/dL (6.6-8.7)
[2020-06-03] MEDS: sodium chloride 0.9% 250 ML 999 ML IV (13:55)
--- NOTE | 2020-06-05 15:55 | ONC FU_ITS ---
Jenna Kahn Patient Note Patient: Alex Kauffman Unit #: [id number]: 1940 Dictated By: Yeesnia GordonDate of Visit: Jun 03, 2020 Onc MED Follow-Up/Prog Note Chief Complaint: Prostate cancer History of Present Illness: Mr. Kauffman is a 79-year-old gentleman with long-standing history of prostate cancer. Initially, he was diagnosed with prostate cancer in May 2000. At that time, his PSA was 9 and a biopsy showed 2+ 2/3+4/3+3 with the largest volume equal 3+4. Underwent radical retropubic prostatectomy in June 2000. He was followed with PSA postoperatively and during follow-up it was noted his PSA was increasing but slowly. Finally in 2010 it was felt he needed further treatment. He was treated with radiation therapy which he completed in March 2011. It showed good response with PSA down to 0.05. During follow-up in November 2012, his PSA gone up to 0.21; in May 2013 up to 0.35 and in November 2013 it was 0.93. In February 2015, he underwent cystoscopic examination found to have local recurrence. It was resected and confirmed to be poorly differentiated prostate cancer. At that time he was started on combined androgen blockade postop. His treatment was complicated by recurrent hematuria and burning micturition. Follow-up lab showed a gradual increase in his PSA level and from 07/06/2017 it was 2.5 earlier while on combined androgen blockade. On 12/21/2017, he underwent cystoscopy with transurethral resection of a bladder lesion, cystourethroscopy with placement of ureteral stent on left side and dilation of urethra. 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 Mr Kauffman has had persistent urine tract infection and recently finished course of Levaquin. Repeat urinalysis on 02/16/2018 showed persistent urine tract infection: leukoesterase positive and persistent RBCs and WBCs on microscopic evaluation. Mr Kauffman reported he did notice pus drops every time after he finish his urination. His case was discussed with Dr. Lloyd, urologist, and he was referred for possible cystoscopy to rule out postsurgical abscess or other source of infection- before we started chemotherapy. Mr Kauffman reported that he has seen Dr. Lloyd. Dr Lloyd replaced the urinary stent and did notice lots of urinary debris. Mr Kauffman was started on long-term antibiotics with Hiprex 1 g by mouth daily. He began his first dose of docetaxel on 03/14/2018. He was not given Neulasta as he did not have insurance approval at the time of chemotherapy. He did have significant neutropenia on day 8 with an ANC of 600. He did not have symptoms and gradually recovered. He did qualify for Neulasta administration with cycle 2 and Concluded his chemotherapy e.g. 6 doses on 06/27/2018 He went to [facility] on 09/07/2018 and as per patient his patient was started on Zytiga/prednisone for one year in addition to Zoladex every 3 months as scans done at [facility] showed excellent response to chemotherapy but persistent lung nodule and pelvic lesion and his PSA done there was around 1. We will obtain follow-up note from [facility] and review. Patient denies any fever chills denies any nausea or vomiting denies any pelvic pain, denies any dysuria or hematuria. On 09/21/2018 patient had left ureteral stent replacement. Mr Kauffman went to [facility] for follow-up on 12/25/2018 and had choline C 11 scan done, when compared with one from 09/07/2018, showed increased choline uptake is again seen in the prostatectomy bed on the left and involving the posterior bladder base is essentially unchanged from the previous scan. The small lymph nodes with choline uptake seen on the previous scan are unchanged. The pulmonary infiltrate have decreased. No new sites of abnormal choline uptake are noted. He was Tolerating ADT with Zoladex and Zytiga/prednisone well. He went to [facility] for follow-up on 06/29/2019. He underwent PET/CT choline which showed likely tumor at the left of urethral vesicle junction has SUV of 4.5 compared to 3.4 on 12/25/2018. Nonspecific activity to the right of urethrovesical junction has SUV of 1.8 compared to 2.1 previously. Likely tumor involving left sided urinary bladder including the left ureterovesical junction has SUV of 6.2 compared to 6.6 previously. Likely metastatic activity in the proximal right external iliac lymph node has SUV of 2.6 versus 2.2 previously. Nonspecific activity along the right common iliac vessels and adjacent to lumbar degenerative changes as current SUV of 2.9 versus 2.1 previously and his PSA was 2.5. Bbased on these findings, Dr. Lewis recommended continue with Zoladex but discontinue Zytiga and taper off prednisone. Initiate xtandi and choline And underwent follow-up CT PET on December 27, 2019 at [facility] which showed disease progression when compared with scan done on June 28, 2019 and showed malignant appearing choline activity along the urinary bladder oneal has increased,, prominent disease in the left UVJ region has current SUV of 9.7 versus 6.2 on June 2019. Metastatic appearing nodularity in the fat to the right of the urinary bladder anteriorly has increased. Approximate 1.7 x 1.3 cm right external iliac node measuring 0.7 x 0.5 cm on June 28, 2019 and now with SUV of 6 compared to 2.6 at that time. A likely metastatic right common iliac node now measures 1.8 x 1.2 cm versus 1 x 0.7 cm on June 28, 2019. Multiple nodes in the thorax shows interval increase activity compared to June 28, 2019, these are nonspecific could be due to granulomatous inflammation. As far as his left pelvic pain is concern, which is under control and left nephrostomy tube was suggested rather than continuing with ureteral stent exchanges every couple of months. Mr Kauffman was seen by Dr. Lewis and MSI/BRCA 1 and 2 were checked and both came back negative- so no role of immunotherapy with pembrolizumab and olaparib. Clinical trial was also considered but considering patient's age and overall condition, further chemotherapy with cabazitaxel was recommended and patient agreed. And he was advised to continue Xtandi until cabazitaxel is planned. Mr Kauffman began his first cycle of cabazitaxel on February 21, 2020. His Zoladex was last given on 01/28/2020. Mr Kauffman underwent choline CT PET scan after 4 doses of Jevtana at [facility] which was done on May 09, 2020 showed stable to mildly improved choline avid bladder and pelvic node metastatic disease. Enlarging subcentimeter left periaortic retroperitoneal nodes with low-grade colon activity, technically indeterminate for new nodes metastatic disease., Could be reactive. Patient was evaluated by on May 13, 2020 and his recommendations were to continue with Jevtana for 4 more cycles and then repeat: CT PET scan and also continue with 3 monthly Zoladex. And continue left ureteral stent exchanges locally. He continues with treatment. Mr. Kauffman is here today for follow-up. He is due for Jevtana and Zoladex. He was seen by Dr. Alcazar last week at which time his neutrophil count was 1000. His last treatment was on May 13, 2020. He tolerated it well. He denies any fever or chills. He has had no signs of infection for at least the last 72 hours. He did not develop any fever with his low white count either. He states his energy is about the same. His appetite is good. His bowels and bladder are normal for him. He states his breathing is the same and no worse than his normal. He denies any cough or hemoptysis. He denies any nausea or vomiting. He denies any neuropathy symptoms at this time. He denies any urinary changes. His ECOG is 0. Past Medical History: Type II diabetes Past Surgical History: Colonoscopy Radical retropubic prostatectomy Right knee surgery Left kidney stent replacement in 2019 Kidney stent replacement in 2018 Kidney stent replacement in 2018 Stent replacement is done every 2 monthes Allergies: Cipro, Penicillins, and Sulfa Antibiotics. Medications: AZO Yeast Plus 1 Tablet Oral daily PRN Hiprex 1 Tablet (of 1 G) Oral b.i.d. MetFORMIN HCl 1 Tablet (of 500 mg) Oral daily oxyCODONE-Acetaminophen 1 Tablet (of 5-325 mg) Oral q 4 to 6 hours PRN Vitamin C 1 Tablet (of 1 G) Oral daily Family History: Mr. Kauffman's mother at age 75. Mr. Kauffman's father at age 87. Mr. Kauffman has 2 brothers: 2 . Mr. Kauffman's first brother's polio. Another brother's coronary artery disease. Social History: Mr. Kauffman is and he is retired. Mr. Kauffman no longer smokes. He has no history of drinking. He has indicated exposure to the following products: chewing tobacco. Mr. Kauffman reports the following support systems: lives with spouse, significant other, family, or friends. His diet consists of regular meals. formerly chewed tobacco, quit in 2000. Review Of Symptoms: Constitutional Denies fevers, chills, night sweats, excessive fatigue or weight loss. Allergic/Immunologic No reactions. Eyes Denies significant visual changes. No diplopia. No amaurosis. ENMT Denies changes in hearing, sore throat, mouth sores, difficulty or changes in swallowing ability, and/or sinus drainage. Endocrine No diabetes, thyroid disease or hormone replacement. Denies hot flashes or night sweats. Hematologic/Lymphatic Denies easy bruising or bleeding. The patient denies any tender or palpable lymph nodes. Respiratory Denies dyspnea on exertion, chest pain, cough or hemoptysis. Denies orthopnea. Cardiovascular Denies anginal chest pain, palpitations or orthopnea. Gastrointestinal Denies nausea, vomiting, diarrhea, GI bleeding, or constipation. Denies change in bowel habits and/or stool color, no heartburn or early satiety. Genitourinary (M) Denies hematuria, dysuria. He has increased frequency but is improved overall. He does have occasional incontinence. Musculoskeletal Denies joint pain, swelling or redness. No decreased range of motion. Integumentary Denies chronic rashes, inflammation, ulcerations or skin changes. Neurologic Denies headache, blurred vision, and no areas of focal weakness or numbness. Normal gait. No sensory problems. Psychiatric Denies insomnia, depression, sherrill or mood swings. Vital Signs: Performed on Jun 03, 2020 12:53 Height - 67.00 in Weight - 218.6 lbs (HIGH) BSA - 2.10 sq.m BMI - 34.24 (HIGH) Temperature - 97.3 F (LOW) Pulse - 83 /min Respiration - 18 /min BP - 137/71 mm(hg) O2 Sat - 95 % (LOW) Pain - 0,0 - Fully active, able to carry on all predisease activities without restrictions. (ECOG) Physical Examination: Constitutional Alert, oriented, no acute distress. Skin pink, warm and dry. Denies fever or chills. Head Normocephalic; atraumatic. Eyes Conjunctivae and sclerae are clear and without icterus. Pupils are reactive and equal. Neck Supple without masses or thyromegaly. No jugular venous distension. Hematologic/Lymphatic No petechiae or purpura. No tender or palpable lymph nodes in the cervical or supraclavicular areas. Respiratory Lungs are clear to auscultation without rhonchi or wheezing. Cardiovascular Regular rate and rhythm of heart without murmurs,clicks, gallops or rubs. Abdomen Non-tender, non-distended, no masses, or ascites. Good bowel sounds noted in all quads. No guarding or rebound tenderness. No pulsatile masses. Back/Spine Non-tender to palpation. Extremities No visible deformities, no cyanosis, clubbing or edema. Musculoskeletal No tenderness or swelling, normal range of motion without obvious weakness. Integumentary Has new rash in both axilla but left is worse than the right. Rash is noted to have some brown pigmentation in the top of the axilla area and redness in the lower area. No vesicles or wheels, slight raised lesions. He states it is not really itching, but occasionally does itch some. It is not painful but some tenderness on deep palpation. It started about 4-5 days ago. Neurologic No sensory or motor deficits, normal cerebellar function, normal gait. Psychiatric Alert and oriented times three. Coherent speech. Verbalizes understanding of our discussions today. Laboratory:Test performed on Jun 02, 2020 09:25 Sodium 142 mmol/L Potassium 3.8 mmol/L Chloride 104 mmol/L CO2 24 mmol/L Anion Gap 17.8 BUN 17 mg/dL Creatinine 1.1 mg/dL Cr Clearance (Est) 76.2700 mL/min Glucose 95 mg/dL Osmolality - Calculated 295 mOsm/kg Calcium 9.3 mg/dL Protein, Total 7.3 g/dL Albumin 3.9 g/dL Globulin 3.4 g/dL Bilirubin, Total 0.3 mg/dL ALT (SGPT) 12 U/L AST (SGOT) 15 U/L Alkaline Phosphatase 66 IU/L WBC 8.3 10 3/uL RBC 4.52 10 6/uL HGB 12.1 g/dL HCT 40.7 % MCV 90.0 fL MCH 26.8 pg MCHC 29.7 g/dL RDW 17.2 % Platelet Count 350 10 3/cmm MPV 10.7 fL Neutrophils 4.84 10 3/uL Lymphocytes 2.4 10 3/uL Monocytes 0.9 10 3/uL Eosinophils 0.1 10 3/uL Basophils 0.1 10 3/uL Neutrophil % 58.2 % Lymphocyte % 28.2 % Monocyte % 10.9 % Eosinophil % 1.3 % Basophils % 0.8 % NRBC % 0 % PSA 2.380 ng/mL Test performed on Apr 22, 2020 13:40 Ua Color Yellow Ua Appearance Hazy Ua pH 6 Ua Specific Tyner 1.015 Ua Glucose Norm Ua Ketones Negative Ua Protein 3+ Ua Blood 3+ Ua Bilirubin 1+ Ua Urobilinogen 1 mg/dL Ua Nitrites Negative Ua Leukocyte Esterase 2+ Ua Micro: WBC TOO NUMEROUS TO CNT /hpf Ua Micro: RBC 40-50 /hpf Ua Micro: Squam Epith Cells 0-4 Ua Micro: Bacteria 2+ Test performed on Feb 28, 2020 12:26 Manual Bands % 18.0 % Manual Lymphs % 21 % Manual Monos % 7.0 % CBC Slide Review Slide Review Perform Manual Bands Abs 2.1 10 3/cmm Manual Neutrophils Abs 8.3 10 3/cmm Manual Monocytes Abs 0.8 10 3/cmm Manual Eosinophils Abs 0.2 10 3/cmm Impression: Recurrent prostate cancer status post cystoscopy and excision in February 2015 followed by combined androgen blockade with Zoladex and Casodex. Now with gradual increasing PSA , While on combined androgen blockade Initially he was diagnosed prostate cancer in 1999- at that time he underwent retropubic radical prostatectomy. Status post radiation therapy in 2010 for increasing PSA and lymphadenopathy. Hematuria/dysuria since February 2015. CT scan of abdomen pelvis done on 03/02/2018 showed soft tissue mass measuring 2.2 cm x 3.2 x 2.9 in the expected location of the prostate inseparable from the urinary bladder floor urinary bladder wall is diffusely thickened and there is a soft tissue attenuation between the soft tissue mass in the anterior infra levator rectal wall, rectal lesion not excluded Seen by Dr. Edwards on 10/24/2017 and his impression was changes in the rectum are probably due to prostate invasion rather than primary rectal lesion. 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 His symptoms resolved and he began recommended chemotherapy with docetaxel on 03/14/2018. Mr. Kauffman has tolerated the chemotherapy relatively well. He did have chemotherapy-induced neutropenia on day 8 of cycle 1. His initial ANC at time of treatment on 03/14/2018 was 13,300 on day 8 his ANC was 600. CT PET scan done on 05/06/2018 showed no evidence for recurrent or residual malignancy., Tiny scattered pelvic nodes are radiographically benign and FDG negative, no findings to indicate osseous metastatic disease and left-sided hydronephrosis is present and a ureteral catheter is in place. PSA checked on 05/15/2018 showed 1.81 compared to 6.49 on 03/14/2018 when chemotherapy with Taxotere was started And concluded his chemotherapy with Taxotere e.g. 6 doses on 06/27/2018 Status post left ureteral stent placement on 05/22/2018 Again replaced on 09/21/2018 Went to [facility] on 09/07/2018,Choline C 11 scan done on 09/07/2018 showed large choline avid recurrence in the prostatectomy bed involving the posterior bladder base has improved since prior exam, however suspicious new small focus of choline avid disease along the right posterior bladder wall. New choline avid node metastatic disease including a right supraclavicular node. And increasing pulmonary infiltrate and/or atelectasis in the posterior lower lobes with reactive choline activity. so he was started on Zytiga/prednisone for one year along with an 3 monthly Zoladex. Mr Kauffman returned to the [facility] on 12/25/2018 and had choline C 11 scan done on same date showed when compared with choline scan done on 09/07/2018, increased choline uptake is seen again in the prostatectomy bed on the left and involving the posterior bladder base is essentially unchanged from the previous scan. The small lymph nodes with choline uptake seen on the previous scans are unchanged the pulmonary infiltrates have decreased. No new sites of abnormal choline uptake are noted. Clinically, patient was doing reasonably, but recently had evidence of disease progression confirmed with CT PET choline and progressive PSA. Mr Kauffman went to [facility] for follow-up and now palliative chemotherapy with cabazitaxel is recommended. Mr Kauffman had disease progression on Xtandi, which he was tolerating well but presented with progressive disease and he was also on 3 monthly Zoladex. At that point, Mr Kauffman has discontinued Xtandi and role of cabazitaxel was discussed. The current treatment plan is cabazitaxel 20 mg/m??? every 3 weeks along with Neulasta to prevent chemotherapy-induced neutropenia as patient is a high risk. The initial plan was for him to receive 4 cycles of chemotherapy as recommended by [facility] and then he will go to clinic for follow-up evaluation including scans. Mr Kauffman was advised to pursue treatment with cabazitaxel with Neulasta support. Mr. Kauffman underwent right Port-A-Cath [place] in the SVC/RA junction [place] [facility] [place]. He began his first cycle on 02/21/2020. He continues with every 3-month Zoladex. His last injection was given on April 29, 2020. He is currently off of all prednisone. Plan: 1. Proceed with cycle 6 Jevtana. He is not due for Zoladex today as his last dose was on April 29, 2020. 2. Continue current antiemetics as he has had chemo induced nausea in the past. 3. Labs from June 02, 2020 were reviewed in detail and discussed with Mr. Mrs. Kauffman and a copy was given to them. WBC 8.3, hemoglobin 12.1, platelets 3 and 50,000 ANC is 4800. Creatinine 1.1 LFTs are normal PSA is 2.380. 4. We will continue with his schedule of interim counts and plan to see him back in 3 weeks with CBC CMP and PSA. 5. I did not add growth factors to him as he recovered adequately for cycle 6-day 1 treatment. He may need growth factor support in the future. 6. Mr. Mrs. Kauffman instructed to contact us in the interim should questions or problems arise. Signed By: Yesenia Gordon-, AOCNP Tom Alcazar MD <<Signature on File>>
== END 2020-06-14 23:59 | disposition home or self-care (01) ==
LOC: ONCMED 05:24
PROVIDERS: Internal Medicine Hematology & Oncology; PCP Nurse Practitioner; Visit Provider Nurse Practitioner
DX: Z51.12 Encounter for antineoplastic immunotherapy (principal); C61 Malignant neoplasm of prostate; C79.11 Secondary malignant neoplasm of bladder; C77.5 Secondary and unspecified malignant neoplasm of intrapelvic lymph nodes; Z79.818 Long term (current) use of other agents affecting estrogen receptors and estrogen levels; Z79.899 Other long term (current) drug therapy; Z90.79 Acquired absence of other genital organ(s); Z87.440 Personal history of urinary (tract) infections; Z87.891 Personal history of nicotine dependence; Z92.3 Personal history of irradiation
CPT/HCPCS: 80053; 84153; 85025; 96367; 96413; 99214; J1100; J1200; J2469; J3490; J7050; J9043

== ENCOUNTER 2020-06-25 05:22 | Outpatient (RCR) | payer MEDICARE, OTHER, SELFPAY ==
[2020-06-17 10:24] LABS: Basophils # 0.1 10^3/uL (0.0-0.1); Basophils % 0.8 %; Eosinophils # 0.3 10^3/uL (0.0-0.8); Eosinophils % 4.5 %; Hematocrit 40.3 % (42.0-52.0); Hemoglobin 12.1 g/dL (11.7-16.6); Lymphocytes # 2.6 10^3/uL (0.8-4.8); Lymphocytes % 40.9 %; Mean Corpuscular Hemoglobin 26.2 pg (28.0-34.0); Mean Corpuscular Volume 87.2 fL (80-94); Mean Platelet Volume 10.7 fL (7.4-10.4); Monocytes # 0.9 10^3/uL (0.2-0.9); Monocytes % 14.5 %; Neutrophils % 39.1 %; Nucleated Red Blood Cells % 0 %; Platelet Count 348 10^3/cmm (130-400); Red Blood Count 4.62 10^6/uL (4.1-5.3); Red Cell Distribution Width 17.9 % (12.1-15.1); White Blood Count 6.4 10^3/uL (4.0-10.0)
[2020-06-17 10:49] LABS: Alanine Aminotransferase 13 U/L (0-41); Albumin Level 4.1 g/dL (3.5-5.2); Alkaline Phosphatase 76 IU/L (40-130); Anion Gap 18.5 (5-19); Aspartate Amino Transferase 12 U/L (0-40); Blood Urea Nitrogen 23 mg/dL (8-23); Calcium 9.2 mg/dL (8.5-10.5); Carbon Dioxide 25 mmol/L (22-29); Chloride 100 mmol/L (98-107); Globulin 3.1 g/dL (1.3-4.6); Glucose 137 mg/dL (65-115); Osmolality Calculated 296 mOsm/kg (285-295); Potassium 3.5 mmol/L (3.5-5.1); Sodium 140 mmol/L (136-145); Total Bilirubin 0.3 mg/dL (0.15-1.2); Total Protein 7.2 g/dL (6.6-8.7)
[2020-06-24 13:32] LABS: Basophils # 0.1 10^3/uL (0.0-0.1); Basophils % 0.6 %; Eosinophils # 0.4 10^3/uL (0.0-0.8); Eosinophils % 4.6 %; Hemoglobin 11.2 g/dL (11.7-16.6); Lymphocytes # 1.7 10^3/uL (0.8-4.8); Lymphocytes % 20.8 %; Mean Corpuscular HGB Conc 29.5 g/dL (30.0-36.0); Mean Corpuscular Hemoglobin 26.5 pg (28.0-34.0); Mean Corpuscular Volume 89.8 fL (80-94); Mean Platelet Volume 10.1 fL (7.4-10.4); Monocytes # 0.8 10^3/uL (0.2-0.9); Monocytes % 10.3 %; Neutrophils # 5.08 10^3/uL (1.8-7.7); Neutrophils % 63.3 %; Nucleated Red Blood Cells % 0 %; Platelet Count 270 10^3/cmm (130-400); Red Blood Count 4.23 10^6/uL (4.1-5.3); Red Cell Distribution Width 18.7 % (12.1-15.1)
[2020-06-24 13:57] LABS: Alanine Aminotransferase 12 U/L (0-41); Albumin Level 3.7 g/dL (3.5-5.2); Alkaline Phosphatase 69 IU/L (40-130); Anion Gap 15.9 (5-19); Aspartate Amino Transferase 13 U/L (0-40); Blood Urea Nitrogen 18 mg/dL (8-23); Carbon Dioxide 26 mmol/L (22-29); Chloride 106 mmol/L (98-107); Globulin 3.2 g/dL (1.3-4.6); Glucose 101 mg/dL (65-115); Osmolality Calculated 300 mOsm/kg (285-295); Potassium 3.9 mmol/L (3.5-5.1); Sodium 144 mmol/L (136-145); Total Bilirubin 0.3 mg/dL (0.15-1.2); Total Protein 6.9 g/dL (6.6-8.7)
[2020-06-25] MEDS: sodium chloride 0.9% 250 ML 999 ML IV (11:11)
--- NOTE | 2020-06-25 14:52 | ONC FU_ITS ---
Dr. Alcazar follow up note Patient: Alex Kauffman Unit #: [id number]: 1940 Dicatated By: Tom Alcazar M.D.Date of Visit:Jun 25, 2020 Onc Med Follow-up/Prog Note History of Present Illness: Mr. Kauffman is a 79-year-old gentleman with long-standing history of prostate cancer. Initially, he was diagnosed with prostate cancer in May 2000. At that time, his PSA was 9 and a biopsy showed 2+ 2/3+4/3+3 with the largest volume equal 3+4. Underwent radical retropubic prostatectomy in June 2000. He was followed with PSA postoperatively and during follow-up it was noted his PSA was increasing but slowly. Finally in 2010 it was felt he needed further treatment. He was treated with radiation therapy which he completed in March 2011. It showed good response with PSA down to 0.05. During follow-up in November 2012, his PSA gone up to 0.21; in May 2013 up to 0.35 and in November 2013 it was 0.93. In February 2015, he underwent cystoscopic examination found to have local recurrence. It was resected and confirmed to be poorly differentiated prostate cancer. At that time he was started on combined androgen blockade postop. His treatment was complicated by recurrent hematuria and burning micturition. Follow-up lab showed a gradual increase in his PSA level and from 07/06/2017 it was 2.5 earlier while on combined androgen blockade. On 12/21/2017, he underwent cystoscopy with transurethral resection of a bladder lesion, cystourethroscopy with placement of ureteral stent on left side and dilation of urethra. 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 Mr Kauffman has had persistent urine tract infection and recently finished course of Levaquin. Repeat urinalysis on 02/16/2018 showed persistent urine tract infection: leukoesterase positive and persistent RBCs and WBCs on microscopic evaluation. Mr Kauffman reported he did notice pus drops every time after he finish his urination. His case was discussed with Dr. Lloyd, urologist, and he was referred for possible cystoscopy to rule out postsurgical abscess or other source of infection- before we started chemotherapy. Mr Kauffman reported that he has seen Dr. Lloyd. Dr Lloyd replaced the urinary stent and did notice lots of urinary debris. Mr Kauffman was started on long-term antibiotics with Hiprex 1 g by mouth daily. He began his first dose of docetaxel on 03/14/2018. He was not given Neulasta as he did not have insurance approval at the time of chemotherapy. He did have significant neutropenia on day 8 with an ANC of 600. He did not have symptoms and gradually recovered. He did qualify for Neulasta administration with cycle 2 and Concluded his chemotherapy e.g. 6 doses on 06/27/2018 He went to [facility] on 09/07/2018 and as per patient his patient was started on Zytiga/prednisone for one year in addition to Zoladex every 3 months as scans done at [facility] showed excellent response to chemotherapy but persistent lung nodule and pelvic lesion and his PSA done there was around 1. We will obtain follow-up note from [facility] and review. Patient denies any fever chills denies any nausea or vomiting denies any pelvic pain, denies any dysuria or hematuria. On 09/21/2018 patient had left ureteral stent replacement. Mr Kauffman went to [facility] for follow-up on 12/25/2018 and had choline C 11 scan done, when compared with one from 09/07/2018, showed increased choline uptake is again seen in the prostatectomy bed on the left and involving the posterior bladder base is essentially unchanged from the previous scan. The small lymph nodes with choline uptake seen on the previous scan are unchanged. The pulmonary infiltrate have decreased. No new sites of abnormal choline uptake are noted. He was Tolerating ADT with Zoladex and Zytiga/prednisone well. He went to [facility] for follow-up on 06/29/2019. He underwent PET/CT choline which showed likely tumor at the left of urethral vesicle junction has SUV of 4.5 compared to 3.4 on 12/25/2018. Nonspecific activity to the right of urethrovesical junction has SUV of 1.8 compared to 2.1 previously. Likely tumor involving left sided urinary bladder including the left ureterovesical junction has SUV of 6.2 compared to 6.6 previously. Likely metastatic activity in the proximal right external iliac lymph node has SUV of 2.6 versus 2.2 previously. Nonspecific activity along the right common iliac vessels and adjacent to lumbar degenerative changes as current SUV of 2.9 versus 2.1 previously and his PSA was 2.5. Bbased on these findings, Dr. Lewis recommended continue with Zoladex but discontinue Zytiga and taper off prednisone. Initiate xtandi and choline And underwent follow-up CT PET on December 27, 2019 at [facility] which showed disease progression when compared with scan done on June 28, 2019 and showed malignant appearing choline activity along the urinary bladder oneal has increased,, prominent disease in the left UVJ region has current SUV of 9.7 versus 6.2 on June 2019. Metastatic appearing nodularity in the fat to the right of the urinary bladder anteriorly has increased. Approximate 1.7 x 1.3 cm right external iliac node measuring 0.7 x 0.5 cm on June 28, 2019 and now with SUV of 6 compared to 2.6 at that time. A likely metastatic right common iliac node now measures 1.8 x 1.2 cm versus 1 x 0.7 cm on June 28, 2019. Multiple nodes in the thorax shows interval increase activity compared to June 28, 2019, these are nonspecific could be due to granulomatous inflammation. As far as his left pelvic pain is concern, which is under control and left nephrostomy tube was suggested rather than continuing with ureteral stent exchanges every couple of months. Mr Kauffman was seen by Dr. Lewis and MSI/BRCA 1 and 2 were checked and both came back negative- so no role of immunotherapy with pembrolizumab and olaparib. Clinical trial was also considered but considering patient's age and overall condition, further chemotherapy with cabazitaxel was recommended and patient agreed. And he was advised to continue Xtandi until cabazitaxel is planned. Mr Kauffman began his first cycle of cabazitaxel on February 21, 2020. His Zoladex was last given on 01/28/2020. Mr Kauffman underwent choline CT PET scan after 4 doses of Jevtana at [facility] which was done on May 09, 2020 showed stable to mildly improved choline avid bladder and pelvic node metastatic disease. Enlarging subcentimeter left periaortic retroperitoneal nodes with low-grade colon activity, technically indeterminate for new nodes metastatic disease., Could be reactive. Patient was evaluated by on May 13, 2020 and his recommendations were to continue with Jevtana for 4 more cycles and then repeat: CT PET scan and also continue with 3 monthly Zoladex. And continue left ureteral stent exchanges locally. He continues with treatment. Came for follow-up, denies any specific complaints, no fever chills, no nausea or vomiting, no diarrhea or constipation, no melena or hematochezia, no abdominal pain, no dysuria, tolerating Jevtana well otherwise Medications: AZO Yeast Plus 1 Tablet Oral daily PRN, Hiprex 1 Tablet (of 1 G) Oral b.i.d., MetFORMIN HCl 1 Tablet (of 500 mg) Oral daily, oxyCODONE-Acetaminophen 1 Tablet (of 5-325 mg) Oral q 4 to 6 hours PRN, Vitamin C 1 Tablet (of 1 G) Oral daily Allergies: Cipro, Penicillins, and Sulfa Antibiotics. Review of Systems: Constitutional - Appetite is good and weight is stable. No fever, chills, hot flashes, or night sweats. Energy level is fair, ENMT - No sinus congestion/drainage. No mouth sores. No sore throat or difficulty swallowing, Hematologic/Lymphatic - No abnormal bruising or bleeding, Respiratory - Shortness of breath with exertion. No cough. No pleuritic pain or hemoptysis, Cardiovascular - No angina pain. No palpitations, Gastrointestinal - No nausea or vomiting. No heartburn or acid reflux. No diarrhea or constipation. No blood in the stool or black stools, Genitourinary (M) - Patient reports dysuria. No hematuria. No urinary frequency. Occasional urgency and incontinence, Musculoskeletal - No joint or bone pain, Neurologic - No headache or dizziness. No numbness/paresthesias or other focal neurologic symptoms, Psychiatric - No anxiety or depression. No insomnia. Vital Signs: Performed on Jun 25, 2020 10:38 Height - 67.00 in Weight - 217.6 lbs (LOW) BSA - 2.10 sq.m BMI - 34.08 (HIGH) Temperature - 97.7 F (LOW) Pulse - 80 /min Respiration - 20 /min BP - 143/74 mm(hg) (HIGH) O2 Sat - 95 % (LOW) Pain - 0 Performance Status: 0 - Fully active, able to carry on all predisease activities without restrictions. (ECOG) Physical Examination: ENMT - Mouth sores, no thrush, no jaundice, Respiratory - Lungs are clear to auscultation, Cardiovascular - Regular rate and rhythm of heart, Abdomen - Soft, bowel sounds present, Extremities - No visible edema. Lab/Imaging: Test performed on Jun 02, 2020 09:25 Sodium 142 mmol/L Potassium 3.8 mmol/L Chloride 104 mmol/L CO2 24 mmol/L Anion Gap 17.8 BUN 17 mg/dL Creatinine 1.1 mg/dL Cr Clearance (Est) 76.2700 mL/min Glucose 95 mg/dL Osmolality - Calculated 295 mOsm/kg Calcium 9.3 mg/dL Protein, Total 7.3 g/dL Albumin 3.9 g/dL Globulin 3.4 g/dL Bilirubin, Total 0.3 mg/dL ALT (SGPT) 12 U/L AST (SGOT) 15 U/L Alkaline Phosphatase 66 IU/L WBC 8.3 10 3/uL RBC 4.52 10 6/uL HGB 12.1 g/dL HCT 40.7 % MCV 90.0 fL MCH 26.8 pg MCHC 29.7 g/dL RDW 17.2 % Platelet Count 350 10 3/cmm MPV 10.7 fL Neutrophils 4.84 10 3/uL Lymphocytes 2.4 10 3/uL Monocytes 0.9 10 3/uL Eosinophils 0.1 10 3/uL Basophils 0.1 10 3/uL Neutrophil % 58.2 % Lymphocyte % 28.2 % Monocyte % 10.9 % Eosinophil % 1.3 % Basophils % 0.8 % NRBC % 0 % PSA 2.380 ng/mL Test performed on Apr 22, 2020 13:40 Ua Color Yellow Ua Appearance Hazy Ua pH 6 Ua Specific [place] 1.015 Ua Glucose Norm Ua Ketones Negative Ua Protein 3+ Ua Blood 3+ Ua Bilirubin 1+ Ua Urobilinogen 1 mg/dL Ua Nitrites Negative Ua Leukocyte Esterase 2+ Ua Micro: WBC TOO NUMEROUS TO CNT /hpf Ua Micro: RBC 40-50 /hpf Ua Micro: Squam Epith Cells 0-4 Ua Micro: Bacteria 2+ Test performed on Mar 31, 2020 08:30 Urine Culture Pending CC 30 CFU/ml Yeast Isolate ID YEASP (Preliminary) Margie albicans CANALB Ua Micro: Yeast TRACE Test performed on Feb 28, 2020 12:26 Manual Bands % 18.0 % Manual Lymphs % 21 % Manual Monos % 7.0 % CBC Slide Review Slide Review Perform Manual Bands Abs 2.1 10 3/cmm Manual Neutrophils Abs 8.3 10 3/cmm Manual Monocytes Abs 0.8 10 3/cmm Manual Eosinophils Abs 0.2 10 3/cmm Impression: Recurrent prostate cancer status post cystoscopy and excision in February 2015 followed by combined androgen blockade with Zoladex and Casodex. Now with gradual increasing PSA , While on combined androgen blockade Initially he was diagnosed prostate cancer in 1999- at that time he underwent retropubic radical prostatectomy. Status post radiation therapy in 2010 for increasing PSA and lymphadenopathy. Hematuria/dysuria since February 2015. CT scan of abdomen pelvis done on 03/02/2018 showed soft tissue mass measuring 2.2 cm x 3.2 x 2.9 in the expected location of the prostate inseparable from the urinary bladder floor urinary bladder wall is diffusely thickened and there is a soft tissue attenuation between the soft tissue mass in the anterior infra levator rectal wall, rectal lesion not excluded Seen by Dr. Edwards on 10/24/2017 and his impression was changes in the rectum are probably due to prostate invasion rather than primary rectal lesion. 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 Mr Kauffman was seen by Dr Lloyd for persistent UTI symptoms post op and was placed on long-term antibiotics. His symptoms resolved and he began recommended chemotherapy with docetaxel on 03/14/2018. Mr. Kauffman has tolerated the chemotherapy relatively well. He did have chemotherapy-induced neutropenia on day 8 of cycle 1. His initial ANC at time of treatment on 03/14/2018 was 13,300 on day 8 his ANC was [address] PET scan done on 05/06/2018 showed no evidence for recurrent or residual malignancy., Tiny scattered pelvic nodes are radiographically benign and FDG negative, no findings to indicate osseous metastatic disease and left-sided hydronephrosis is present and a ureteral catheter is in place. PSA checked on 05/15/2018 showed 1.81 compared to 6.49 on 03/14/2018 when chemotherapy with Taxotere was started And concluded his chemotherapy with Taxotere e.g. 6 doses on 06/27/2018 Status post left ureteral stent placement on 05/22/2018 Again replaced on 09/21/2018 Went to [facility] on 09/07/2018,Choline C 11 scan done on 09/07/2018 showed large choline avid recurrence in the prostatectomy bed involving the posterior bladder base has improved since prior exam, however suspicious new small focus of choline avid disease along the right posterior bladder wall. New choline avid node metastatic disease including a right supraclavicular node. And increasing pulmonary infiltrate and/or atelectasis in the posterior lower lobes with reactive choline activity. so he was started on Zytiga/prednisone for one year along with an 3 monthly Zoladex. Mr Kauffman returned to the [facility] on 12/25/2018 and had choline C 11 scan done on same date showed when compared with choline scan done on 09/07/2018, increased choline uptake is seen again in the prostatectomy bed on the left and involving the posterior bladder base is essentially unchanged from the previous scan. The small lymph nodes with choline uptake seen on the previous scans are unchanged the pulmonary infiltrates have decreased. No new sites of abnormal choline uptake are noted. Clinically, patient was doing reasonably, but recently had evidence of disease progression confirmed with CT PET choline and progressive PSA. Mr Kauffman went to [facility] for follow-up and now palliative chemotherapy with cabazitaxel is recommended. Mr Kauffman had disease progression on Xtandi, which he was tolerating well but presented with progressive disease and he was also on 3 monthly Zoladex. At that point, Mr Kauffman has discontinued Xtandi and role of cabazitaxel was discussed. The current treatment plan is cabazitaxel 20 mg/m??? every 3 weeks along with Neulasta to prevent chemotherapy-induced neutropenia as patient is a high risk. The initial plan was for him to receive 4 cycles of chemotherapy as recommended by [facility] and then he will go to clinic for follow-up evaluation including scans. Mr Kauffman was advised to pursue treatment with cabazitaxel with Neulasta support. Mr. Kauffman underwent right Port-A-Cath placement in the SVC/RA junction per Dr. Caballero at [facility] on February 14, 2020. He began his first cycle on 02/21/2020. He continues with every 3-month Zoladex. His last injection was given on April 29, 2020. He is currently off of all prednisone. Plan: Discussed with patient regarding his labs white blood count 8 hemoglobin 11.2 hematocrit 38 platelets 270,000 CMP within normal limits, PSA 2.24 Clinically, patient is doing well with no new signs symptoms, tolerating Jevtana well but with expected side effect. We will proceed with cycle #7/8 today and then he will return 3 weeks with CBC CMP and it looks reasonable for final dose of Jevtana before follow-up choline CT PET scan is done at [facility] Signed By: Tom Alcazar M.D. <<Signature on File>>
== END 2020-07-14 23:59 | disposition home or self-care (01) ==
LOC: ONCMED 05:22
PROVIDERS: Nurse Practitioner; PCP Nurse Practitioner; Visit Provider Internal Medicine Hematology & Oncology
DX: Z51.11 Encounter for antineoplastic chemotherapy (principal); C61 Malignant neoplasm of prostate; R31.9 Hematuria, unspecified; R30.0 Dysuria; R97.20 Elevated prostate specific antigen [PSA]; Z79.52 Long term (current) use of systemic steroids; Z79.818 Long term (current) use of other agents affecting estrogen receptors and estrogen levels; Z79.899 Other long term (current) drug therapy
CPT/HCPCS: 80053; 84153; 85025; 96367; 96413; 99214; J1100; J1200; J2469; J3490; J7050; J9043

== ENCOUNTER 2020-07-03 09:28 | Outpatient (CLI) | payer MEDICARE, OTHER, SELFPAY ==
--- NOTE | 2020-07-03 09:45 | XR_ITS ---
WS: [id number] Exam: XR KUB [id number] Date/Time of Exam: 07/03/2020 9:42 AM Reason For Exam: URETERAL OBSTRUCTION No bowel obstruction or free air. A left-sided ureteral stent is noted. There is also a 7 mm calcific ation superimposing the lower pole left kidney which may represent a renal stone. No calcifications s een in the region of the right kidney. Surgical clips seen in the bilateral pelvis. Degenerative carmona ges of the lumbar spine and hips. XR/XR KUB [id number] IMPRESSION: 1. No acute abdominal finding. 2. Left-sided ureteral stent in place appearing to be in appropriate location. 3. Calcification superimposing the left kidney which may represent a renal ston e.
== END 2020-07-03 09:29 | disposition home or self-care (01) ==
LOC: RAD 09:32
PROVIDERS: PCP Nurse Practitioner; Visit Provider Urology
DX: N13.5 Crossing vessel and stricture of ureter without hydronephrosis (principal); Z96.0 Presence of urogenital implants
CPT/HCPCS: 74018; 81003

== ENCOUNTER → 2020-07-09 11:22 | Outpatient (BNVA) | payer MEDICARE, OTHER, SELFPAY | PROVIDERS: PCP Nurse Practitioner; Visit Provider Urology | DX: Z20.828 Contact with and (suspected) exposure to other viral communicable diseases (principal) | CPT/HCPCS: 87635 ==

== ENCOUNTER 2020-07-14 10:33 | Day surgery (SDC) | payer MEDICARE, OTHER, SELFPAY ==
[2020-07-09 13:59] VITALS: BMI 34.0
--- NOTE | 2020-07-14 | SCC_ITS ---
Procedure Done: 1. Cystoscopy, LEFT: Ureteral stent exchange 10.5 seconds of fluoroscopic guidance, for a cumulative dose of 1.15 mGy, was provided to Dr. Lloyd by the radiology department. C-arm images of the abdomen were saved for the patient's permanent record. [facility]
[2020-07-14 10:52] VITALS: BP 127/76; PULSE 77; RESP 18; O2SAT 97
[2020-07-14] MEDS: sodium chloride 0.9% 1,000 ML 30 ML IV (11:15)
[2020-07-14 11:19] LABS: Glucose Point of Care 102 mg/dL (70-110)
--- NOTE | 2020-07-14 11:42 | ANES.PREANE2 ---
Pre-Anesthetic Assessment Pre-Anesthetic Assessment: Height/Weight: Height 1.7 m Weight 98.43 kg Pulse Resp BP Pulse Ox 77 18 127/76 97 07/14/20 10:52 07/14/20 10:52 07/14/20 10:52 07/14/20 10:52 Preop Diagnosis: Chronic left ureteral obstruction requiring indwelling stent. Proposed Procedure: Operation Date: 07/14/20 12:00 Proposed Procedures p Cystoscopy 90006 N13.5(Not Applicable) - Jasper Lloyd MD s Ureteral Stent Exchange(Left) - Jasper Lloyd MD Was Beta Jasmine taken within 24 hours: N/A Last intake: Intake Last Liquid Date 07/13/20 Last Liquid Time 21: Last Solid Date 07/13/20 Last Solid Time : Social: Social History: No alcohol and No tobacco Exam: Pre-Anes Outpt Exam: alert, oriented x 3, clear to auscultation bilaterally and regular rate & rhythm Airway: Submandibular: WNL Cervical ROM: WNL MP: 2 Dentition: Full (upper plate. many missing teeth on bottom) History/ROS: No significant history except as noted and No significant complaints Pulmonary: Pulmonary: None reported CV/HEM: CV/HEM: None reported : Comments: Hx prostate CA Hepatic: Hepatic: None reported GI: GI: None reported Metabolic: Metabolic: DM and Thyroid Musc/skel: Musc/skel: OA/DJD and None reported Neuropsych: Neuropsych: None reported Anesthetic Plan: ASA status: 2 Anesthesia: General Risk of > 500 ml blood loss (7ml/kg in children): No Meds/Allergies Current Medications: Current Medications Generic Name Dose Route Start Last Admin Trade Name Freq PRN Reason Stop Dose Admin Sodium Chloride 1,000 mls @ 30 ml s/hr 07/14/20 08:30 07/14/20 11:15 Sodium Chloride 0.9% IV 07/15/20 08:29 30 mls/hr .Q24H EBER Administration PFSH Anesthesia PFSH: Medical History Chronic cystitis Extrinsic ureteral obstruction Male stress incontinence Prostate cancer Surgical History History of radical retropubic prostatectomy Hx of transurethral destruction of bladder lesion S/P right knee surgery Status post placement of ureteral stent Family History Mother , in her 70's CAD (coronary artery disease) Father , in his 80's No problems noted. Social History Smoking and tobacco status: never smoked Alcohol intake: never Adopted: No Caregiver/support person: No Lives independently: No Household members: spouse Marital status: Current occupational status: retired History of recent travel: No Data Anesthesia Other Labs: Laboratory Results - last 48 hr 07/14/20 11:11 POC Glucose 102 Cardiac Studies: No Data to Display
--- NOTE | 2020-07-14 11:55 | SC_ITS ---
WS: [id number] INTRAOPERATIVE TECHNIQUE: 2 Spot fluoroscopic images for intraoperative purposes. FLUOROSCOPY TIME: 10.5 seconds CLINICAL INFORMATION: stent placement COMPARISON: None. FINDINGS: Partially visualized left ureteral stent. SC/C-arm FL for Urology IMPRESSION: Images obtained for intraoperative purposes.
--- NOTE | 2020-07-14 12:16 | P.HPUD_ITS ---
Surgery/Procedure H&P Update DATE OF PROCEDURE: July 14, 2020 DATE H&P PERFORMED: 07/03/20 H&P UPDATE INFORMATION: I have reviewed H&P completed within last 30 days, I have examined patient prior to procedure, No changes to prior documentation and [place] is [place] [facility] [place] date indicated PREOP DIAGNOSIS: Chronic left ureteral obstruction requiring indwelling stent. PLANNED PROCEDURE: Operation Date: 07/14/20 12:00 Proposed Procedures p Cystoscopy 08283 N13.5(Not Applicable) - Jasper Lloyd MD s Ureteral Stent Exchange(Left) - Jasper Lloyd MD
--- NOTE | 2020-07-14 12:22 | PM.OP ---
Operative Report Date of procedure: July 14, 2020 Pre-op Diagnosis: Chronic left ureteral obstruction requiring indwelling stent. Post-op diagnosis: same Procedure Done: 1. Cystoscopy, LEFT: Ureteral stent exchange Pathology: none sent Surgeon: Prema Anesthesia: General Estimated blood loss: Minimal Urine output: Not measured Complications: None Condition: stable Disposition: PACU Brief History: Mr. Kauffman is a delightful 79-year-old white male with recurrent locally invasive prostate cancer with left ureteral obstruction having undergone failed radical prostatectomy, failed adjuvant radiation therapy, on systemic therapy chronically. Has a indwelling stent on the left side which is changed on a regular basis due to encrustation. His last change was about 3 months ago and is being admitted now for cystoscopy and ureteral stent change. There has been a lot of necrotic type tissue at the left ureteral orifice which has made changing the stent difficult historically. Procedure: After routine preoperative evaluation examination and obtaining of informed consent he was taken to the operating suite on 07/14/2020 where general anesthesia was administered without difficulty after appropriate timeout was performed, SCDs confirmed to be functioning, preoperative antibiotics administered, beta-kofi protocol confirmed. Prepped and draped in usual sterile fashion in dorsal lithotomy position paying careful attention to avoiding pressure points. The 21 Cuban cystoscope with 30 degree lens was introduced into the urethra meatus and advanced into the bladder under videoscopy. The stent was identified. There was a lot of inflammatory change at the ureteral orifice with some eschar type necrotic tissue. A flexible tip guidewire was easily advanced up the left ureter next to the stent. Grasping forceps were then utilized to secure the distal end of the stent which was withdrawn. The wire remained in place while the stent was removed. The proximal curl and the stent very easily uncurled and the stent was removed easily as well. Cystoscope was then backloaded over the guidewire and an 8.5 Cuban by 26 cm double-pigtail stent was advanced over the guidewire through the cystoscope into appropriate position as confirmed via fluoroscopy and cystoscopy. The bladder was drained and the procedure was completed. Tolerated procedure well without complications and was awakened in the operating room and returned to recovery in stable condition. PLANS: 1. Follow-up in 4 months with KUB or sooner for increasing symptoms.
[2020-07-14 13:05] VITALS: BP 129/81; PULSE 66; RESP 14; TEMP 36.2; O2SAT 98
[2020-07-14 13:08] VITALS: BP 133/55; PULSE 90; RESP 18; O2SAT 95
[2020-07-14 13:10] VITALS: BP 133/95; PULSE 65; RESP 21; TEMP 36.4; O2SAT 95
--- NOTE | 2020-07-14 13:16 | SUR.PHASEI ---
1313 PT AWAKE ALERT TAKATIVE SMILING WANTS SOMETHING TO DRINK PT TO OPS HANDOFF AT BEDSIDE..
[2020-07-14 13:24] VITALS: BP 149/75; PULSE 67; RESP 18; TEMP 36.6; O2SAT 96
--- NOTE | 2020-07-14 13:30 | PM.PACU ---
PACU note PACU note: VSS Post-Anesthesia Exam: awake Disposition: discharged
[2020-07-14 13:50] VITALS: BP 149/75; PULSE 67; RESP 18; O2SAT 96
== END 2020-07-14 13:52 | disposition home or self-care (01) ==
PROVIDERS: PCP Nurse Practitioner; Visit Provider Urology
PROC: 0TJB8ZZ Inspection of Bladder, Via Natural or Artificial Opening Endoscopic (ICD-10-PCS; CPT 52000; principal; 2020-07-14 12:00)
PROC: (CPT 52332; 2020-07-14 12:00)
DX: N13.5 Crossing vessel and stricture of ureter without hydronephrosis (principal); C61 Malignant neoplasm of prostate; N30.20 Other chronic cystitis without hematuria; E11.9 Type 2 diabetes mellitus without complications; Z90.79 Acquired absence of other genital organ(s); Z92.3 Personal history of irradiation; Z79.84 Long term (current) use of oral hypoglycemic drugs; Z79.891 Long term (current) use of opiate analgesic
CPT/HCPCS: 52332; 12345; 36416; 76000; 82962; C2625; J1580; J1885; J2405; J2704; J3010; J7030; T1015-U1

== ENCOUNTER 2020-08-14 05:39 | Outpatient (RCR) | payer MEDICARE, OTHER, SELFPAY ==
[2020-07-22 14:56] LABS: Basophils # 0.1 10^3/uL (0.0-0.1); Basophils % 0.7 %; Eosinophils # 0.3 10^3/uL (0.0-0.8); Eosinophils % 3.2 %; Hematocrit 38.8 % (42.0-52.0); Hemoglobin 11.8 g/dL (11.7-16.6); Lymphocytes # 2.2 10^3/uL (0.8-4.8); Lymphocytes % 27.1 %; Mean Corpuscular HGB Conc 30.4 g/dL (30.0-36.0); Mean Corpuscular Hemoglobin 25.7 pg (28.0-34.0); Mean Corpuscular Volume 84.3 fL (80-94); Mean Platelet Volume 10.6 fL (7.4-10.4); Monocytes # 0.7 10^3/uL (0.2-0.9); Monocytes % 8.3 %; Neutrophils # 4.93 10^3/uL (1.8-7.7); Neutrophils % 60.5 %; Nucleated Red Blood Cells % 0 %; Platelet Count 283 10^3/cmm (130-400); Red Cell Distribution Width 19.9 % (12.1-15.1); White Blood Count 8.2 10^3/uL (4.0-10.0)
[2020-07-22 16:17] LABS: Alanine Aminotransferase 12 U/L (0-41); Alkaline Phosphatase 70 IU/L (40-130); Anion Gap 16.1 (5-19); Aspartate Amino Transferase 15 U/L (0-40); Blood Urea Nitrogen 23 mg/dL (8-23); Calcium 9.5 mg/dL (8.5-10.5); Carbon Dioxide 27 mmol/L (22-29); Chloride 105 mmol/L (98-107); Globulin 3.3 g/dL (1.3-4.6); Glucose 105 mg/dL (65-115); Osmolality Calculated 302 mOsm/kg (285-295); Potassium 4.1 mmol/L (3.5-5.1); Sodium 144 mmol/L (136-145); Total Bilirubin 0.2 mg/dL (0.15-1.2); Total Protein 7.3 g/dL (6.6-8.7)
[2020-07-23] MEDS: famotidine 20 mg/2 mL INJ IVP (11:27)
[2020-07-23] MEDS: sodium chloride 0.9% 250 ML 75 ML IV (11:27)
[2020-07-23] MEDS: lidocaine 1% INJ 20 mL INJECTION (11:28)
[2020-07-23] MEDS: diphenhydrAMINE 50 mg/mL SDV 1mL 25 MG IV (11:29)
[2020-07-23] MEDS: palonosetron 0.25 mg/5 mL SDV IV (11:31)
[2020-07-23] MEDS: goserelin acetate 10.8 mg Implant IM (11:38)
--- NOTE | 2020-07-27 16:59 | ONC FU_ITS ---
Jenna [facility] Patient Note Patient: Alex Kauffman Unit #: [id number]: 1940 Dictated By: Yesenia GordonDate of Visit: Jul 23, 2020 Onc MED Follow-Up/Prog Note Chief Complaint: Prostate cancer History of Present Illness: Mr. Kauffman is a 79-year-old gentleman with long-standing history of prostate cancer. Initially, he was diagnosed with prostate cancer in May 2000. At that time, his PSA was 9 and a biopsy showed 2+ 2/3+4/3+3 with the largest volume equal 3+4. Underwent radical retropubic prostatectomy in June 2000. He was followed with PSA postoperatively and during follow-up it was noted his PSA was increasing but slowly. Finally in 2010 it was felt he needed further treatment. He was treated with radiation therapy which he completed in March 2011. It showed good response with PSA down to 0.05. During follow-up in November 2012, his PSA gone up to 0.21; in May 2013 up to 0.35 and in November 2013 it was 0.93. In February 2015, he underwent cystoscopic examination found to have local recurrence. It was resected and confirmed to be poorly differentiated prostate cancer. At that time he was started on combined androgen blockade postop. His treatment was complicated by recurrent hematuria and burning micturition. Follow-up lab showed a gradual increase in his PSA level and from 07/06/2017 it was 2.5 earlier while on combined androgen blockade. On 12/21/2017, he underwent cystoscopy with transurethral resection of a bladder lesion, cystourethroscopy with placement of ureteral stent on left side and dilation of urethra. 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 Mr Kauffman has had persistent urine tract infection and recently finished course of Levaquin. Repeat urinalysis on 02/16/2018 showed persistent urine tract infection: leukoesterase positive and persistent RBCs and WBCs on microscopic evaluation. Mr Kauffman reported he did notice pus drops every time after he finish his urination. His case was discussed with Dr. Lloyd, urologist, and he was referred for possible cystoscopy to rule out postsurgical abscess or other source of infection- before we started chemotherapy. Mr Kauffman reported that he has seen Dr. Lloyd. Dr Lloyd replaced the urinary stent and did notice lots of urinary debris. Mr Kauffman was started on long-term antibiotics with Hiprex 1 g by mouth daily. He began his first dose of docetaxel on 03/14/2018. He was not given Neulasta as he did not have insurance approval at the time of chemotherapy. He did have significant neutropenia on day 8 with an ANC of 600. He did not have symptoms and gradually recovered. He did qualify for Neulasta administration with cycle 2 and Concluded his chemotherapy e.g. 6 doses on 06/27/2018 He went to [facility] on 09/07/2018 and as per patient and his , patient was started on Zytiga/prednisone for one year in addition to Zoladex every 3 months as scans done at [facility] showed excellent response to chemotherapy but persistent lung nodule and pelvic lesion and his PSA done there was around 1. We will obtain follow-up note from [facility] and review. On 09/21/2018 patient had left ureteral stent replacement. Mr Kauffman went to [facility] for follow-up on 12/25/2018 and had choline C 11 scan done, when compared with one from 09/07/2018, showed increased choline uptake is again seen in the prostatectomy bed on the left and involving the posterior bladder base is essentially unchanged from the previous scan. The small lymph nodes with choline uptake seen on the previous scan are unchanged. The pulmonary infiltrate have decreased. No new sites of abnormal choline uptake are noted. He was Tolerating ADT with Zoladex and Zytiga/prednisone well. He went to [facility] for follow-up on 06/29/2019. He underwent PET/CT choline which showed likely tumor at the left of urethral vesicle junction has SUV of 4.5 compared to 3.4 on 12/25/2018. Nonspecific activity to the right of urethrovesical junction has SUV of 1.8 compared to 2.1 previously. Likely tumor involving left sided urinary bladder including the left ureterovesical junction has SUV of 6.2 compared to 6.6 previously. Likely metastatic activity in the proximal right external iliac lymph node has SUV of 2.6 versus 2.2 previously. Nonspecific activity along the right common iliac vessels and adjacent to lumbar degenerative changes as current SUV of 2.9 versus 2.1 previously and his PSA was 2.5. Bbased on these findings, Dr. Lewis recommended continue with Zoladex but discontinue Zytiga and taper off prednisone. Initiate xtandi and choline And underwent follow-up CT PET on December 27, 2019 at [facility] which showed disease progression when compared with scan done on June 28, 2019 and showed malignant appearing choline activity along the urinary bladder oneal has increased,, prominent disease in the left UVJ region has current SUV of 9.7 versus 6.2 on June 2019. Metastatic appearing nodularity in the fat to the right of the urinary bladder anteriorly has increased. Approximate 1.7 x 1.3 cm right external iliac node measuring 0.7 x 0.5 cm on June 28, 2019 and now with SUV of 6 compared to 2.6 at that time. A likely metastatic right common iliac node now measures 1.8 x 1.2 cm versus 1 x 0.7 cm on June 28, 2019. Multiple nodes in the thorax shows interval increase activity compared to June 28, 2019, these are nonspecific could be due to granulomatous inflammation. As far as his left pelvic pain is concern, which is under control and left nephrostomy tube was suggested rather than continuing with ureteral stent exchanges every couple of months. Mr Kauffman was seen by Dr. Lewis and MSI/BRCA 1 and 2 were checked and both came back negative- so no role of immunotherapy with pembrolizumab and olaparib. Clinical trial was also considered but considering patient's age and overall condition, further chemotherapy with cabazitaxel was recommended and patient agreed. And he was advised to continue Xtandi until cabazitaxel is planned. Mr Kuaffman began his first cycle of cabazitaxel on February 21, 2020. His Zoladex was last given on 01/28/2020. Mr Kauffman underwent choline CT PET scan after 4 doses of Jevtana at [facility] which was done on May 09, 2020 showed stable to mildly improved choline avid bladder and pelvic node metastatic disease. Enlarging subcentimeter left periaortic retroperitoneal nodes with low-grade colon activity, technically indeterminate for new nodes metastatic disease., Could be reactive. Patient was evaluated by on May 13, 2020 and his recommendations were to continue with Jevtana for 4 more cycles and then repeat: CT PET scan and also continue with 3 monthly Zoladex. And continue left ureteral stent exchanges locally. He continues with treatment. Mr. Kauffman is here today for follow-up. He is due for cycle 8 Jevtana. He is also due for Zoladex today. This will be his last planned Jevtana as he will have follow-ups imaging and visit with [facility]. He states he is due to have his choline PET/CT and office visit next Tuesday at [facility] in [place], [place]. He is requesting to have the choline PET/CT closer to home. He states last time he went to [facility] had the choline PET/CT drove home ended up virtual visit with the specialist at [facility]. He is wanting to avoid that drive just for the choline PET/CT. He is aware the closest that we are aware that this is done in [place]. He and his state they are willing to go to [place] to have this done. Mr. Kauffman has no new concerns today. He denies any new bone pain. He states his breathing is the same. His energy is good. He is eating well. He denies any any urinary complications. He has had no constipation or diarrhea. He denies any neuropathy. He denies any cough or discomfort breathing. He has had no abdominal pain. Mrs. Kauffman denies any episodes of confusion or hallucination. His ECOG is 0. Past Medical History: Type II diabetes Past Surgical History: Colonoscopy Radical retropubic prostatectomy Right knee surgery Left kidney stent replacement in 2019 Kidney stent replacement in 2018 Kidney stent replacement in 2018 Stent replacement is done every 2 monthes Allergies: Cipro, Penicillins, and Sulfa Antibiotics. Medications: AZO Yeast Plus 1 Tablet Oral daily PRN Hiprex 1 Tablet (of 1 G) Oral b.i.d. MetFORMIN HCl 1 Tablet (of 500 mg) Oral daily oxyCODONE-Acetaminophen 1 Tablet (of 5-325 mg) Oral q 4 to 6 hours PRN Vitamin C 1 Tablet (of 1 G) Oral daily Family History: Mr. Kauffman's mother at age 75. Mr. Kauffman's father at age 87. Mr. Kauffman has 2 brothers: 2 . Mr. Kauffman's first brother's polio. Another brother's coronary artery disease. Social History: Mr. Kauffman is and he is retired. Mr. Kauffman no longer smokes. He has no history of drinking. He has indicated exposure to the following products: chewing tobacco. Mr. Kauffman reports the following support systems: lives with spouse, significant other, family, or friends. His diet consists of regular meals. formerly chewed tobacco, quit in 2000. Review Of Symptoms: Constitutional Denies fevers, chills, night sweats, excessive fatigue or weight loss. Allergic/Immunologic No reactions. Eyes Denies significant visual changes. No diplopia. No amaurosis. ENMT Denies changes in hearing, sore throat, mouth sores, difficulty or changes in swallowing ability, and/or sinus drainage. Endocrine has on going hot flashes at times but normal for him. Hematologic/Lymphatic Denies easy bruising or bleeding. The patient denies any tender or palpable lymph nodes. Respiratory Denies dyspnea on exertion, chest pain, cough or hemoptysis. Denies orthopnea. Cardiovascular Denies anginal chest pain, palpitations or orthopnea. Gastrointestinal Denies nausea, vomiting, diarrhea, GI bleeding, or constipation. Denies change in bowel habits and/or stool color, no heartburn or early satiety. Genitourinary (M) Denies hematuria, dysuria. He has increased frequency but is improved overall. He does have occasional incontinence. Musculoskeletal Denies joint pain, swelling or redness. No decreased range of motion. Integumentary Denies chronic rashes, inflammation, ulcerations or skin changes. Neurologic Denies headache, blurred vision, and no areas of focal weakness or numbness. Normal gait. No sensory problems. Psychiatric Denies insomnia, depression, sherrill or mood swings. Vital Signs: Performed on Jul 23, 2020 10:24 Height - 67.00 in Weight - 215.4 lbs (LOW) BSA - 2.09 sq.m BMI - 33.74 (HIGH) Temperature - 97.6 F (LOW) Pulse - 76 /min Respiration - 20 /min BP - 146/76 mm(hg) (HIGH) O2 Sat - 97 % Pain - 0,0 - Fully active, able to carry on all predisease activities without restrictions. (ECOG) Physical Examination: Constitutional Alert, oriented, no acute distress. Skin pink, warm and dry. Denies fever or chills. Head Normocephalic; atraumatic. Eyes Conjunctivae and sclerae are clear and without icterus. Pupils are reactive and equal. ENMT Sinuses are nontender. No oral exudates, ulcers, masses, thrush or mucositis. Oropharynx clear. Tongue normal. Neck Supple without masses or thyromegaly. No jugular venous distension. Hematologic/Lymphatic No petechiae or purpura. No tender or palpable lymph nodes in the cervical or supraclavicular areas. Respiratory Lungs are clear to auscultation without rhonchi or wheezing. Cardiovascular Regular rate and rhythm of heart without murmurs,clicks, gallops or rubs. Abdomen Non-tender, non-distended, no masses, or ascites. Good bowel sounds noted in all quads. No guarding or rebound tenderness. No pulsatile masses. Back/Spine Non-tender to palpation. Extremities No visible deformities, no cyanosis, clubbing or edema. Musculoskeletal No tenderness or swelling, normal range of motion without obvious weakness. Neurologic No sensory or motor deficits, normal cerebellar function, normal gait. Psychiatric Alert and oriented times three. Coherent speech. Verbalizes understanding of our discussions today. Laboratory:Test performed on Jul 22, 2020 11:28 Sodium 144 mmol/L Potassium 4.1 mmol/L Chloride 105 mmol/L CO2 27 mmol/L Anion Gap 16.1 BUN 23 mg/dL Creatinine 1.1 mg/dL Cr Clearance (Est) 76.2700 mL/min Glucose 105 mg/dL Osmolality - Calculated 302 mOsm/kg Calcium 9.5 mg/dL Protein, Total 7.3 g/dL Albumin 4.0 g/dL Globulin 3.3 g/dL Bilirubin, Total 0.2 mg/dL ALT (SGPT) 12 U/L AST (SGOT) 15 U/L Alkaline Phosphatase 70 IU/L WBC 8.2 10 3/uL RBC 4.60 10 6/uL HGB 11.8 g/dL HCT 38.8 % MCV 84.3 fL MCH 25.7 pg MCHC 30.4 g/dL RDW 19.9 % Platelet Count 283 10 3/cmm MPV 10.6 fL Neutrophils 4.93 10 3/uL Lymphocytes 2.2 10 3/uL Monocytes 0.7 10 3/uL Eosinophils 0.3 10 3/uL Basophils 0.1 10 3/uL Neutrophil % 60.5 % Lymphocyte % 27.1 % Monocyte % 8.3 % Eosinophil % 3.2 % Basophils % 0.7 % NRBC % 0 % PSA 2.540 ng/mL Test performed on Apr 22, 2020 13:40 Ua Color Yellow Ua Appearance Hazy Ua pH 6 Ua Specific [place] 1.015 Ua Glucose Norm Ua Ketones Negative Ua Protein 3+ Ua Blood 3+ Ua Bilirubin 1+ Ua Urobilinogen 1 mg/dL Ua Nitrites Negative Ua Leukocyte Esterase 2+ Ua Micro: WBC TOO NUMEROUS TO CNT /hpf Ua Micro: RBC 40-50 /hpf Ua Micro: Squam Epith Cells 0-4 Ua Micro: Bacteria 2+ Test performed on Mar 31, 2020 08:30 Urine Culture Pending CC 30 CFU/ml Yeast Isolate ID YEASP (Preliminary) Margie albicans CANALB Ua Micro: Yeast TRACE Test performed on Feb 28, 2020 12:26 Manual Bands % 18.0 % Manual Lymphs % 21 % Manual Monos % 7.0 % CBC Slide Review Slide Review Perform Manual Bands Abs 2.1 10 3/cmm Manual Neutrophils Abs 8.3 10 3/cmm Manual Monocytes Abs 0.8 10 3/cmm Manual Eosinophils Abs 0.2 10 3/cmm Impression: Recurrent prostate cancer status post cystoscopy and excision in February 2015 followed by combined androgen blockade with Zoladex and Casodex. Now with gradual increasing PSA , While on combined androgen blockade Initially he was diagnosed prostate cancer in 1999- at that time he underwent retropubic radical prostatectomy. Status post radiation therapy in 2010 for increasing PSA and lymphadenopathy. Hematuria/dysuria since February 2015. CT scan of abdomen pelvis done on 03/02/2018 showed soft tissue mass measuring 2.2 cm x 3.2 x 2.9 in the expected location of the prostate inseparable from the urinary bladder floor urinary bladder wall is diffusely thickened and there is a soft tissue attenuation between the soft tissue mass in the anterior infra levator rectal wall, rectal lesion not excluded Seen by Dr. Edwards on 10/24/2017 and his impression was changes in the rectum are probably due to prostate invasion rather than primary rectal lesion. 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 Mr Kauffman was seen by Dr Lloyd for persistent UTI symptoms post op and was placed on termite technician antibiotics. His symptoms resolved and he began recommended chemotherapy with docetaxel on 03/14/2018. Mr. Kauffman has tolerated the chemotherapy relatively well. He did have chemotherapy-induced neutropenia on day 8 of cycle 1. His initial ANC at time of treatment on 03/14/2018 was 13,300 on day 8 his ANC was 600[address] PET scan done on 05/06/2018 showed no evidence for recurrent or residual malignancy., Tiny scattered pelvic nodes are radiographically benign and FDG negative, no findings to indicate osseous metastatic disease and left-sided hydronephrosis is present and a ureteral catheter is in place. PSA checked on 05/15/2018 showed 1.81 compared to 6.49 on 03/14/2018 when chemotherapy with Taxotere was started And concluded his chemotherapy with Taxotere e.g. 6 doses on 06/27/2018 Status post left ureteral stent placement on 05/22/2018 Again replaced on 09/21/2018 Went to [facility] on 09/07/2018,Choline C 11 scan done on 09/07/2018 showed large choline avid recurrence in the prostatectomy bed involving the posterior bladder base has improved since prior exam, however suspicious new small focus of choline avid disease along the right posterior bladder wall. New choline avid node metastatic disease including a right supraclavicular node. And increasing pulmonary infiltrate and/or atelectasis in the posterior lower lobes with reactive choline activity. so he was started on Zytiga/prednisone for one year along with an 3 monthly Zoladex. Mr Kauffman returned to the [facility] on 12/25/2018 and had choline C 11 scan done on same date showed when compared with choline scan done on 09/07/2018, increased choline uptake is seen again in the prostatectomy bed on the left and involving the posterior bladder base is essentially unchanged from the previous scan. The small lymph nodes with choline uptake seen on the previous scans are unchanged the pulmonary infiltrates have decreased. No new sites of abnormal choline uptake are noted. Clinically, patient was doing reasonably, but recently had evidence of disease progression confirmed with CT PET choline and progressive PSA. Mr Kauffman went to [facility] for follow-up and now palliative chemotherapy with cabazitaxel is recommended. Mr Kauffman had disease progression on Xtandi, which he was tolerating well but presented with progressive disease and he was also on 3 monthly Zoladex. At that point, Mr Kauffman has discontinued Xtandi and role of cabazitaxel was discussed. The current treatment plan is cabazitaxel 20 mg/m??? every 3 weeks along with Neulasta to prevent chemotherapy-induced neutropenia as patient is a high risk. The initial plan was for him to receive 4 cycles of chemotherapy as recommended by [facility] and then he will go to clinic for follow-up evaluation including scans. Mr Kauffman was advised to pursue treatment with cabazitaxel with Neulasta support. Mr. Kauffman underwent right Port-A-Cath placement in the SVC/RA junction per Dr. Caballero at [facility] on February 14, 2020. He began his first cycle on 02/21/2020. He continues with every 3-month Zoladex. His last injection was given on April 29, 2020. He is currently off of all prednisone. Plan: 1. Recurrent prostate cancer: A. Proceed with cycle 8 Jevtana today. B. Proceed with Zoladex 10.8 mg today as well. C. Labs from 07/22/2020 were reviewed in detail and discussed with Mr. Mrs. Kauffman and a copy was given to them. WBC 8.2, hemoglobin 11.8, platelets 1 83,000 ANC is 4930. Creatinine 1.1 random glucose 105 LFTs are normal and PSA is 2.54. His PSA on 06/24/2020 was 2.24. D. We have requested a choline PET/CT for follow-up after 4 additional cycles of Jevtana. His last imaging was with [facility] and there was just either need for comparison or if the facility performing the choline PET CT can forward the imaging to [facility] for imaging that would be acceptable. Information for Dr. Lewis was sent with the order for the choline PET/CT. E. . Mrs. Kauffman states that they have a follow-up with Dr. Lewis on Tuesday and anticipate this being a televisit. 2. Follow-up plan: We will plan to see him back in 3 weeks with CBC CMP and PSA. We will tentatively plan for Jevtana but await further instructions from Dr. Lewis at [facility]. 3. Mr. Kauffman was encouraged to let us know in interim should questions or problems arise. Signed By: Yesenia Gordon-, [facility] Tom Alcazar MD <<Signature on File>>
[2020-08-13 11:31] LABS: Basophils # 0.1 10^3/uL (0.0-0.1); Basophils % 0.6 %; Eosinophils # 0.1 10^3/uL (0.0-0.8); Eosinophils % 0.6 %; Hematocrit 37.3 % (42.0-52.0); Hemoglobin 11.5 g/dL (11.7-16.6); Lymphocytes # 1.4 10^3/uL (0.8-4.8); Lymphocytes % 15.6 %; Mean Corpuscular HGB Conc 30.8 g/dL (30.0-36.0); Mean Corpuscular Hemoglobin 25.9 pg (28.0-34.0); Mean Platelet Volume 9.7 fL (7.4-10.4); Monocytes # 0.6 10^3/uL (0.2-0.9); Monocytes % 6.4 %; Neutrophils # 6.67 10^3/uL (1.8-7.7); Neutrophils % 76.3 %; Nucleated Red Blood Cells % 0 %; Platelet Count 363 10^3/cmm (130-400); Red Blood Count 4.44 10^6/uL (4.1-5.3); Red Cell Distribution Width 19.8 % (12.1-15.1); White Blood Count 8.7 10^3/uL (4.0-10.0)
[2020-08-13 14:04] LABS: Alanine Aminotransferase 11 U/L (0-41); Albumin Level 3.6 g/dL (3.5-5.2); Alkaline Phosphatase 67 IU/L (40-130); Aspartate Amino Transferase 14 U/L (0-40); Blood Urea Nitrogen 24 mg/dL (8-23); Calcium 9.3 mg/dL (8.5-10.5); Carbon Dioxide 25 mmol/L (22-29); Chloride 101 mmol/L (98-107); Globulin 3.5 g/dL (1.3-4.6); Glucose 149 mg/dL (65-115); Osmolality Calculated 301 mOsm/kg (285-295); Sodium 142 mmol/L (136-145); Total Bilirubin 0.3 mg/dL (0.15-1.2); Total Protein 7.1 g/dL (6.6-8.7)
[2020-08-13 14:15] LABS: Anion Gap 19.4 (5-19); Potassium 3.4 mmol/L (3.5-5.1)
[2020-08-14] MEDS: potassium chloride 20 MEQ in sodium chloride 0.9% 500 ML 255 MEQ IV (11:21)
[2020-08-14 11:32] LABS: Magnesium 1.8 mg/dL (1.7-2.3)
--- NOTE | 2020-08-14 15:58 | ONC FU_ITS ---
Dr. Alcazar follow up note Patient: Alex Kauffman Unit #: [id number]: 1940 Dicatated By: Tom Alcazar M.D.Date of Visit:Aug 14, 2020 Onc Med Follow-up/Prog Note History of Present Illness: Mr. Kauffman is a 79-year-old gentleman with long-standing history of prostate cancer. Initially, he was diagnosed with prostate cancer in May 2000. At that time, his PSA was 9 and a biopsy showed 2+ 2/3+4/3+3 with the largest volume equal 3+4. Underwent radical retropubic prostatectomy in June 2000. He was followed with PSA postoperatively and during follow-up it was noted his PSA was increasing but slowly. Finally in 2010 it was felt he needed further treatment. He was treated with radiation therapy which he completed in March 2011. It showed good response with PSA down to 0.05. During follow-up in November 2012, his PSA gone up to 0.21; in May 2013 up to 0.35 and in November 2013 it was 0.93. In February 2015, he underwent cystoscopic examination found to have local recurrence. It was resected and confirmed to be poorly differentiated prostate cancer. At that time he was started on combined androgen blockade postop. His treatment was complicated by recurrent hematuria and burning micturition. Follow-up lab showed a gradual increase in his PSA level and from 07/06/2017 it was 2.5 earlier while on combined androgen blockade. On 12/21/2017, he underwent cystoscopy with transurethral resection of a bladder lesion, cystourethroscopy with placement of ureteral stent on left side and dilation of urethra. 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 Mr Kauffman has had persistent urine tract infection and recently finished course of Levaquin. Repeat urinalysis on 02/16/2018 showed persistent urine tract infection: leukoesterase positive and persistent RBCs and WBCs on microscopic evaluation. Mr Kauffman reported he did notice pus drops every time after he finish his urination. His case was discussed with Dr. Lloyd, urologist, and he was referred for possible cystoscopy to rule out postsurgical abscess or other source of infection- before we started chemotherapy. Mr Kauffman reported that he has seen Dr. Lloyd. Dr Lloyd replaced the urinary stent and did notice lots of urinary debris. Mr Kauffman was started on long-term antibiotics with Hiprex 1 g by mouth daily. He began his first dose of docetaxel on 03/14/2018. He was not given Neulasta as he did not have insurance approval at the time of chemotherapy. He did have significant neutropenia on day 8 with an ANC of 600. He did not have symptoms and gradually recovered. He did qualify for Neulasta administration with cycle 2 and Concluded his chemotherapy e.g. 6 doses on 06/27/2018 He went to [facility] on 09/07/2018 and as per patient and his , patient was started on Zytiga/prednisone for one year in addition to Zoladex every 3 months as scans done at [facility] showed excellent response to chemotherapy but persistent lung nodule and pelvic lesion and his PSA done there was around 1. We will obtain follow-up note from [facility] and review. On 09/21/2018 patient had left ureteral stent replacement. Mr Kauffman went to [facility] for follow-up on 12/25/2018 and had choline C 11 scan done, when compared with one from 09/07/2018, showed increased choline uptake is again seen in the prostatectomy bed on the left and involving the posterior bladder base is essentially unchanged from the previous scan. The small lymph nodes with choline uptake seen on the previous scan are unchanged. The pulmonary infiltrate have decreased. No new sites of abnormal choline uptake are noted. He was Tolerating ADT with Zoladex and Zytiga/prednisone well. He went to [facility] for follow-up on 06/29/2019. He underwent PET/CT choline which showed likely tumor at the left of urethral vesicle junction has SUV of 4.5 compared to 3.4 on 12/25/2018. Nonspecific activity to the right of urethrovesical junction has SUV of 1.8 compared to 2.1 previously. Likely tumor involving left sided urinary bladder including the left ureterovesical junction has SUV of 6.2 compared to 6.6 previously. Likely metastatic activity in the proximal right external iliac lymph node has SUV of 2.6 versus 2.2 previously. Nonspecific activity along the right common iliac vessels and adjacent to lumbar degenerative changes as current SUV of 2.9 versus 2.1 previously and his PSA was 2.5. based on these findings, Dr. Lewis recommended continue with Zoladex but discontinue Zytiga and taper off prednisone. Initiate xtandi and choline And underwent follow-up CT PET on December 27, 2019 at [facility] which showed disease progression when compared with scan done on June 28, 2019 and showed malignant appearing choline activity along the urinary bladder oneal has increased,, prominent disease in the left UVJ region has current SUV of 9.7 versus 6.2 on June 2019. Metastatic appearing nodularity in the fat to the right of the urinary bladder anteriorly has increased. Approximate 1.7 x 1.3 cm right external iliac node measuring 0.7 x 0.5 cm on June 28, 2019 and now with SUV of 6 compared to 2.6 at that time. A likely metastatic right common iliac node now measures 1.8 x 1.2 cm versus 1 x 0.7 cm on June 28, 2019. Multiple nodes in the thorax shows interval increase activity compared to June 28, 2019, these are nonspecific could be due to granulomatous inflammation. As far as his left pelvic pain is concern, which is under control and left nephrostomy tube was suggested rather than continuing with ureteral stent exchanges every couple of months. Mr Kauffman was seen by Dr. Lewis and MSI/BRCA 1 and 2 were checked and both came back negative- so no role of immunotherapy with pembrolizumab and olaparib. Clinical trial was also considered but considering patient's age and overall condition, further chemotherapy with cabazitaxel was recommended and patient agreed. And he was advised to continue Xtandi until cabazitaxel is planned. Mr Kauffman began his first cycle of cabazitaxel on February 21, 2020. His Zoladex was last given on 01/28/2020. Mr Kauffman underwent choline CT PET scan after 4 doses of Jevtana at [facility] which was done on May 09, 2020 showed stable to mildly improved choline avid bladder and pelvic node metastatic disease. Enlarging subcentimeter left periaortic retroperitoneal nodes with low-grade colon activity, technically indeterminate for new nodes metastatic disease., Could be reactive. Patient was evaluated by on May 13, 2020 and his recommendations were to continue with Jevtana for 4 more cycles and then repeat: CT PET scan and also continue with 3 monthly Zoladex. And continue left ureteral stent exchanges locally. He continues with treatment.Patient completed total 8 cycles of Jevtana on July 23, 2020 And follow-up choline CT PET scan scheduled for August 27, 2020 at [facility] Came for follow-up, complaining of generalized weakness and fatigue as per patient the last chemotherapy with Jevtana was pretty harsh, did develop nausea vomiting and diarrhea for couple of days but now improving but still not drink enough fluids. No abdominal pain, no mouth sores, no jaundice, no burning micturition or hematuria, denies any indigestion denies any headaches. Appetite is improving. Medications: AZO Yeast Plus 1 Tablet Oral daily PRN, Hiprex 1 Tablet (of 1 G) Oral b.i.d., MetFORMIN HCl 1 Tablet (of 500 mg) Oral daily, oxyCODONE-Acetaminophen 1 Tablet (of 5-325 mg) Oral q 4 to 6 hours PRN, Vitamin C 1 Tablet (of 1 G) Oral daily Allergies: Cipro, Penicillins, and Sulfa Antibiotics. Review of Systems: Review of Systems is not available for this patient. Vital Signs: Performed on Aug 14, 2020 10:28 Height - 67.00 in Weight - 209.4 lbs (LOW) BSA - 2.06 sq.m BMI - 32.80 (HIGH) Temperature - 97.2 F (LOW) Pulse - 81 /min Respiration - 18 /min BP - 152/76 mm(hg) (HIGH) O2 Sat - 96 % Pain - 0 Performance Status: 2 - Ambulatory/capable of all self-care, unable to perform any work activities. Up and about more than 50% of waking hours. (ECOG) Physical Examination: ENMT - No mouth sores, no thrush but dry oral mucosa, Respiratory - Lungs are clear to auscultation, Cardiovascular - Regular rate and rhythm of heart, Abdomen - Soft, bowel sounds present, Extremities - No visible edema. Lab/Imaging: Test performed on Jul 22, 2020 11:28 Sodium 144 mmol/L Potassium 4.1 mmol/L Chloride 105 mmol/L CO2 27 mmol/L Anion Gap 16.1 BUN 23 mg/dL Creatinine 1.1 mg/dL Cr Clearance (Est) 76.2700 mL/min Glucose 105 mg/dL Osmolality - Calculated 302 mOsm/kg Calcium 9.5 mg/dL Protein, Total 7.3 g/dL Albumin 4.0 g/dL Globulin 3.3 g/dL Bilirubin, Total 0.2 mg/dL ALT (SGPT) 12 U/L AST (SGOT) 15 U/L Alkaline Phosphatase 70 IU/L WBC 8.2 10 3/uL RBC 4.60 10 6/uL HGB 11.8 g/dL HCT 38.8 % MCV 84.3 fL MCH 25.7 pg MCHC 30.4 g/dL RDW 19.9 % Platelet Count 283 10 3/cmm MPV 10.6 fL Neutrophils 4.93 10 3/uL Lymphocytes 2.2 10 3/uL Monocytes 0.7 10 3/uL Eosinophils 0.3 10 3/uL Basophils 0.1 10 3/uL Neutrophil % 60.5 % Lymphocyte % 27.1 % Monocyte % 8.3 % Eosinophil % 3.2 % Basophils % 0.7 % NRBC % 0 % PSA 2.540 ng/mL Test performed on Apr 22, 2020 13:40 Ua Color Yellow Ua Appearance Hazy Ua pH 6 Ua Specific [place] 1.015 Ua Glucose Norm Ua Ketones Negative Ua Protein 3+ Ua Blood 3+ Ua Bilirubin 1+ Ua Urobilinogen 1 mg/dL Ua Nitrites Negative Ua Leukocyte Esterase 2+ Ua Micro: WBC TOO NUMEROUS TO CNT /hpf Ua Micro: RBC 40-50 /hpf Ua Micro: Squam Epith Cells 0-4 Ua Micro: Bacteria 2+ Test performed on Mar 31, 2020 08:30 Urine Culture Pending CC 30 CFU/ml Yeast Isolate ID YEASP (Preliminary) Margie albicans CANALB Ua Micro: Yeast TRACE Test performed on Feb 28, 2020 12:26 Manual Bands % 18.0 % Manual Lymphs % 21 % Manual Monos % 7.0 % CBC Slide Review Slide Review Perform Manual Bands Abs 2.1 10 3/cmm Manual Neutrophils Abs 8.3 10 3/cmm Manual Monocytes Abs 0.8 10 3/cmm Manual Eosinophils Abs 0.2 10 3/cmm Impression: Recurrent prostate cancer status post cystoscopy and excision in February 2015 followed by combined androgen blockade with Zoladex and Casodex. Now with gradual increasing PSA , While on combined androgen blockade Initially he was diagnosed prostate cancer in 1999- at that time he underwent retropubic radical prostatectomy. Status post radiation therapy in 2010 for increasing PSA and lymphadenopathy. Hematuria/dysuria since February 2015. CT scan of abdomen pelvis done on 03/02/2018 showed soft tissue mass measuring 2.2 cm x 3.2 x 2.9 in the expected location of the prostate inseparable from the urinary bladder floor urinary bladder wall is diffusely thickened and there is a soft tissue attenuation between the soft tissue mass in the anterior infra levator rectal wall, rectal lesion not excluded Seen by Dr. Edwards on 10/24/2017 and his impression was changes in the rectum are probably due to prostate invasion rather than primary rectal lesion. 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 Mr Kauffman was seen by Dr Lloyd for persistent UTI symptoms post op and was placed on alf antibiotics. His symptoms resolved and he began recommended chemotherapy with docetaxel on 03/14/2018. Mr. Kauffman has tolerated the chemotherapy relatively well. He did have chemotherapy-induced neutropenia on day 8 of cycle 1. His initial ANC at time of treatment on 03/14/2018 was 13,300 on day 8 his ANC was [address] PET scan done on 05/06/2018 showed no evidence for recurrent or residual malignancy., Tiny scattered pelvic nodes are radiographically benign and FDG negative, no findings to indicate osseous metastatic disease and left-sided hydronephrosis is present and a ureteral catheter is in place. PSA checked on 05/15/2018 showed 1.81 compared to 6.49 on 03/14/2018 when chemotherapy with Taxotere was started And concluded his chemotherapy with Taxotere e.g. 6 doses on 06/27/2018 Status post left ureteral stent placement on 05/22/2018 Again replaced on 09/21/2018 Went to [facility] on 09/07/2018,Choline C 11 scan done on 09/07/2018 showed large choline avid recurrence in the prostatectomy bed involving the posterior bladder base has improved since prior exam, however suspicious new small focus of choline avid disease along the right posterior bladder wall. New choline avid node metastatic disease including a right supraclavicular node. And increasing pulmonary infiltrate and/or atelectasis in the posterior lower lobes with reactive choline activity. so he was started on Zytiga/prednisone for one year along with an 3 monthly Zoladex. Mr Kauffman returned to the [facility] on 12/25/2018 and had choline C 11 scan done on same date showed when compared with choline scan done on 09/07/2018, increased choline uptake is seen again in the prostatectomy bed on the left and involving the posterior bladder base is essentially unchanged from the previous scan. The small lymph nodes with choline uptake seen on the previous scans are unchanged the pulmonary infiltrates have decreased. No new sites of abnormal choline uptake are noted. Clinically, patient was doing reasonably, but recently had evidence of disease progression confirmed with CT PET choline and progressive PSA. Mr Kauffman went to [facility] for follow-up and now palliative chemotherapy with cabazitaxel is recommended. Mr Kauffman had disease progression on Xtandi, which he was tolerating well but presented with progressive disease and he was also on 3 monthly Zoladex. At that point, Mr Kauffman has discontinued Xtandi and role of cabazitaxel was discussed. The current treatment plan is cabazitaxel 20 mg/m??? every 3 weeks along with Neulasta to prevent chemotherapy-induced neutropenia as patient is a high risk. The initial plan was for him to receive 4 cycles of chemotherapy as recommended by [facility] and then he will go to clinic for follow-up evaluation including scans. Mr Kauffman was advised to pursue treatment with cabazitaxel with Neulasta support. Mr. Kauffman underwent right Port-A-Cath placement in the SVC/RA junction per Dr. Caballero at [facility] on February 14, 2020. He began his first cycle on 02/21/2020. He continues with every 3-month Zoladex. His last injection was given on April 29, 2020. He is currently off of all prednisone.And completed 8 cycles of Jevtana on July 23, 2020 Plan: Discussed with patient regarding his labs white blood count 8.7 hemoglobin 11.5 hematocrit 37.3 platelets 363,000 CMP within normal limit except BUN 24 creatinine 1.3 and potassium 3.4, PSA 2.17 compared to 2.54 on July 22, 2020 Clinically, patient appears dehydrated probably due to poor oral intake and recent episode of nausea vomiting and diarrhea and also with mild hypokalemia and mildly elevated creatinine/BUN. We will consider hydration with normal saline and also add potassium supplements and check his magnesium level if low consider supplement. Patient is scheduled for: CT PET scan on August 27, 2020 at [place], patient will discuss with Dr. Lewis at [facility] regarding CT PET scan finding and further instructions. He will return to clinic 1 week after: CT PET scan/Dr. Lewis's evaluation, for further management, with CBC CMP and PSA Signed By: Tom Alcazar M.D. <<Signature on File>>
== END 2020-08-14 23:59 | disposition home or self-care (01) ==
LOC: ONCMED 05:39
PROVIDERS: Nurse Practitioner; PCP Nurse Practitioner; Visit Provider Internal Medicine Hematology & Oncology
DX: C61 Malignant neoplasm of prostate (principal); E87.6 Hypokalemia; R53.83 Other fatigue; R53.1 Weakness; T45.1X5A Adverse effect of antineoplastic and immunosuppressive drugs, initial encounter; R97.21 Rising PSA following treatment for malignant neoplasm of prostate; Z90.79 Acquired absence of other genital organ(s); Z92.3 Personal history of irradiation; Z79.899 Other long term (current) drug therapy; Z87.891 Personal history of nicotine dependence; Z85.51 Personal history of malignant neoplasm of bladder
CPT/HCPCS: 80053; 83735; 84153; 85025; 96365; 96366; 96367; 96372; 96375; 96402; 96413; 99214; J1100; J1200; J2469; J3480; J3490; J7040; J7050; J9043; J9202

== ENCOUNTER 2020-09-18 14:26 | Outpatient (CLI) | payer MEDICARE, OTHER, SELFPAY ==
[2020-09-18 15:10] LABS: Basophils # 0.1 10^3/uL (0.0-0.1); Basophils % 0.6 %; Eosinophils # 0.6 10^3/uL (0.0-0.8); Eosinophils % 6.3 %; Hematocrit 42.2 % (42.0-52.0); Hemoglobin 13.2 g/dL (11.7-16.6); Lymphocytes # 3.1 10^3/uL (0.8-4.8); Lymphocytes % 30.7 %; Mean Corpuscular HGB Conc 31.3 g/dL (30.0-36.0); Mean Corpuscular Hemoglobin 26.6 pg (28.0-34.0); Mean Corpuscular Volume 85.1 fL (80-94); Mean Platelet Volume 9.7 fL (7.4-10.4); Monocytes # 0.9 10^3/uL (0.2-0.9); Monocytes % 9.2 %; Neutrophils # 5.42 10^3/uL (1.8-7.7); Nucleated Red Blood Cells % 0 %; Platelet Count 331 10^3/cmm (130-400); Red Blood Count 4.96 10^6/uL (4.1-5.3); Red Cell Distribution Width 19.5 % (12.1-15.1); White Blood Count 10.2 10^3/uL (4.0-10.0)
[2020-09-18 16:07] LABS: Alanine Aminotransferase 13 U/L (0-41); Alkaline Phosphatase 69 IU/L (40-130); Aspartate Amino Transferase 12 U/L (0-40); Blood Urea Nitrogen 19 mg/dL (8-23); Calcium 9.5 mg/dL (8.5-10.5); Carbon Dioxide 24 mmol/L (22-29); Chloride 104 mmol/L (98-107); Globulin 3.7 g/dL (1.3-4.6); Glucose 106 mg/dL (65-115); Osmolality Calculated 293 mOsm/kg (285-295); Sodium 140 mmol/L (136-145); Total Bilirubin 0.3 mg/dL (0.15-1.2); Total Protein 7.7 g/dL (6.6-8.7)
--- NOTE | 2020-09-19 11:57 | ONC FU_ITS ---
Dr. Alcazar follow up note Patient: Alex Kauffman Unit #: [id number]: 1940 Dicatated By: Tom Alcazar M.D.Date of Visit:Sep 18, 2020 Onc Med Follow-up/Prog Note History of Present Illness: Mr. Kauffman is a 79-year-old gentleman with long-standing history of prostate cancer. Initially, he was diagnosed with prostate cancer in May 2000. At that time, his PSA was 9 and a biopsy showed 2+ 2/3+4/3+3 with the largest volume equal 3+4. Underwent radical retropubic prostatectomy in June 2000. He was followed with PSA postoperatively and during follow-up it was noted his PSA was increasing but slowly. Finally in 2010 it was felt he needed further treatment. He was treated with radiation therapy which he completed in March 2011. It showed good response with PSA down to 0.05. During follow-up in November 2012, his PSA gone up to 0.21; in May 2013 up to 0.35 and in November 2013 it was 0.93. In February 2015, he underwent cystoscopic examination found to have local recurrence. It was resected and confirmed to be poorly differentiated prostate cancer. At that time he was started on combined androgen blockade postop. His treatment was complicated by recurrent hematuria and burning micturition. Follow-up lab showed a gradual increase in his PSA level and from 07/06/2017 it was 2.5 earlier while on combined androgen blockade. On 12/21/2017, he underwent cystoscopy with transurethral resection of a bladder lesion, cystourethroscopy with placement of ureteral stent on left side and dilation of urethra. 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 Mr Kauffman has had persistent urine tract infection and recently finished course of Levaquin. Repeat urinalysis on 02/16/2018 showed persistent urine tract infection: leukoesterase positive and persistent RBCs and WBCs on microscopic evaluation. Mr Kauffman reported he did notice pus drops every time after he finish his urination. His case was discussed with Dr. Lloyd, urologist, and he was referred for possible cystoscopy to rule out postsurgical abscess or other source of infection- before we started chemotherapy. Mr Kauffman reported that he has seen Dr. Lloyd. Dr Lloyd replaced the urinary stent and did notice lots of urinary debris. Mr Kauffman was started on long-term antibiotics with Hiprex 1 g by mouth daily. He began his first dose of docetaxel on 03/14/2018. He was not given Neulasta as he did not have insurance approval at the time of chemotherapy. He did have significant neutropenia on day 8 with an ANC of 600. He did not have symptoms and gradually recovered. He did qualify for Neulasta administration with cycle 2 and Concluded his chemotherapy e.g. 6 doses on 06/27/2018 He went to [facility] on 09/07/2018 and as per patient and his , patient was started on Zytiga/prednisone for one year in addition to Zoladex every 3 months as scans done at [facility] showed excellent response to chemotherapy but persistent lung nodule and pelvic lesion and his PSA done there was around 1. We will obtain follow-up note from [facility] and review. On 09/21/2018 patient had left ureteral stent replacement. Mr Kauffman went to [facility] for follow-up on 12/25/2018 and had choline C 11 scan done, when compared with one from 09/07/2018, showed increased choline uptake is again seen in the prostatectomy bed on the left and involving the posterior bladder base is essentially unchanged from the previous scan. The small lymph nodes with choline uptake seen on the previous scan are unchanged. The pulmonary infiltrate have decreased. No new sites of abnormal choline uptake are noted. He was Tolerating ADT with Zoladex and Zytiga/prednisone well. He went to [facility] for follow-up on 06/29/2019. He underwent PET/CT choline which showed likely tumor at the left of urethral vesicle junction has SUV of 4.5 compared to 3.4 on 12/25/2018. Nonspecific activity to the right of urethrovesical junction has SUV of 1.8 compared to 2.1 previously. Likely tumor involving left sided urinary bladder including the left ureterovesical junction has SUV of 6.2 compared to 6.6 previously. Likely metastatic activity in the proximal right external iliac lymph node has SUV of 2.6 versus 2.2 previously. Nonspecific activity along the right common iliac vessels and adjacent to lumbar degenerative changes as current SUV of 2.9 versus 2.1 previously and his PSA was 2.5. based on these findings, Dr. Lewis recommended continue with Zoladex but discontinue Zytiga and taper off prednisone. Initiate xtandi and choline And underwent follow-up CT PET on December 27, 2019 at [facility] which showed disease progression when compared with scan done on June 28, 2019 and showed malignant appearing choline activity along the urinary bladder oneal has increased,, prominent disease in the left UVJ region has current SUV of 9.7 versus 6.2 on June 2019. Metastatic appearing nodularity in the fat to the right of the urinary bladder anteriorly has increased. Approximate 1.7 x 1.3 cm right external iliac node measuring 0.7 x 0.5 cm on June 28, 2019 and now with SUV of 6 compared to 2.6 at that time. A likely metastatic right common iliac node now measures 1.8 x 1.2 cm versus 1 x 0.7 cm on June 28, 2019. Multiple nodes in the thorax shows interval increase activity compared to June 28, 2019, these are nonspecific could be due to granulomatous inflammation. As far as his left pelvic pain is concern, which is under control and left nephrostomy tube was suggested rather than continuing with ureteral stent exchanges every couple of months. Mr Kauffman was seen by Dr. Lewis and MSI/BRCA 1 and 2 were checked and both came back negative- so no role of immunotherapy with pembrolizumab and olaparib. Clinical trial was also considered but considering patient's age and overall condition, further chemotherapy with cabazitaxel was recommended and patient agreed. And he was advised to continue Xtandi until cabazitaxel is planned. Mr Kauffman began his first cycle of cabazitaxel on February 21, 2020. His Zoladex was last given on 01/28/2020. Mr Kauffman underwent choline CT PET scan after 4 doses of Jevtana at [facility] which was done on May 09, 2020 showed stable to mildly improved choline avid bladder and pelvic node metastatic disease. Enlarging subcentimeter left periaortic retroperitoneal nodes with low-grade colon activity, technically indeterminate for new nodes metastatic disease., Could be reactive. Patient was evaluated by on May 13, 2020 and his recommendations were to continue with Jevtana for 4 more cycles and then repeat: CT PET scan and also continue with 3 monthly Zoladex. And continue left ureteral stent exchanges locally. He continues with treatment.Patient completed total 8 cycles of Jevtana on July 23, 2020 And follow-up CT PET scan prostate done on September 05, 2020 bladder metastatic disease with predominant involvement of left ureterovesical region and local invasion into pelvis including involvement of left pubic bone. The nodularity at right ureterovesical region with involvement of distal right ureter resulting in moderate right hydronephrosis, which may be new Mild uptake within the subcentimeter left para-aortic node is indeterminate Uptake within mediastinal and bilateral hilar nodes is nonspecific Came for follow-up, denies any specific complaints, no abdominal pain or pelvic pain, no dysuria or hematuria, no fever chills, no nausea or vomiting, no diarrhea constipation, patient is feeling better over the last couple of weeks.As per patient,Now scheduled to see Dr. Lewis via telemedicine on Tuesday Medications: AZO Yeast Plus 1 Tablet Oral daily PRN, Hiprex 1 Tablet (of 1 G) Oral b.i.d., MetFORMIN HCl 1 Tablet (of 500 mg) Oral daily, oxyCODONE-Acetaminophen 1 Tablet (of 5-325 mg) Oral q 4 to 6 hours PRN, Vitamin C 1 Tablet (of 1 G) Oral daily Allergies: Cipro, Penicillins, and Sulfa Antibiotics. Review of Systems: Constitutional - Appetite is good and weight is stable. No fever, chills, hot flashes, or night sweats. Energy level is fair, ENMT - No sinus congestion/drainage. No mouth sores. No sore throat or difficulty swallowing, Hematologic/Lymphatic - No abnormal bruising or bleeding, Respiratory - Shortness of breath with exertion. No cough. No pleuritic pain or hemoptysis, Cardiovascular - No angina pain. No palpitations, Gastrointestinal - No nausea or vomiting. No heartburn or acid reflux. No diarrhea or constipation. No blood in the stool or black stools, Genitourinary (M) - Patient reports dysuria. No hematuria. No urinary frequency. Occasional urgency and incontinence, Musculoskeletal - No joint or bone pain, Neurologic - No headache or dizziness. No numbness/paresthesias or other focal neurologic symptoms, Psychiatric - No anxiety or depression. No insomnia. Vital Signs: Performed on Sep 18, 2020 16:12 Height - 67.00 in Weight - 207.8 lbs (LOW) BSA - 2.06 sq.m BMI - 32.55 (HIGH) Temperature - 96.1 F (LOW) Pulse - 86 /min Respiration - 18 /min BP - 154/79 mm(hg) (HIGH) O2 Sat - 97 % Pain - 0 Fatigue - 5 Performance Status: 1 - No physically strenuous activity, but ambulatory and able to carry out light or sedentary work (e.g. office work, light house work). (ECOG) Physical Examination: ENMT - No mouth sores, no thrush, no jaundice, Respiratory - Lungs are clear to auscultation, Cardiovascular - Regular rate and rhythm of heart, Abdomen - Soft, bowel sounds present, Extremities - No visible edema. Lab/Imaging: Test performed on Aug 13, 2020 09:01 Magnesium 1.8 mg/dL Test performed on Jul 22, 2020 11:28 Sodium 144 mmol/L Potassium 4.1 mmol/L Chloride 105 mmol/L CO2 27 mmol/L Anion Gap 16.1 BUN 23 mg/dL Creatinine 1.1 mg/dL Cr Clearance (Est) 76.2700 mL/min Glucose 105 mg/dL Osmolality - Calculated 302 mOsm/kg Calcium 9.5 mg/dL Protein, Total 7.3 g/dL Albumin 4.0 g/dL Globulin 3.3 g/dL Bilirubin, Total 0.2 mg/dL ALT (SGPT) 12 U/L AST (SGOT) 15 U/L Alkaline Phosphatase 70 IU/L WBC 8.2 10 3/uL RBC 4.60 10 6/uL HGB 11.8 g/dL HCT 38.8 % MCV 84.3 fL MCH 25.7 pg MCHC 30.4 g/dL RDW 19.9 % Platelet Count 283 10 3/cmm MPV 10.6 fL Neutrophils 4.93 10 3/uL Lymphocytes 2.2 10 3/uL Monocytes 0.7 10 3/uL Eosinophils 0.3 10 3/uL Basophils 0.1 10 3/uL Neutrophil % 60.5 % Lymphocyte % 27.1 % Monocyte % 8.3 % Eosinophil % 3.2 % Basophils % 0.7 % NRBC % 0 % PSA 2.540 ng/mL Test performed on Apr 22, 2020 13:40 Ua Color Yellow Ua Appearance Hazy Ua pH 6 Ua Specific [place] 1.015 Ua Glucose Norm Ua Ketones Negative Ua Protein 3+ Ua Blood 3+ Ua Bilirubin 1+ Ua Urobilinogen 1 mg/dL Ua Nitrites Negative Ua Leukocyte Esterase 2+ Ua Micro: WBC TOO NUMEROUS TO CNT /hpf Ua Micro: RBC 40-50 /hpf Ua Micro: Squam Epith Cells 0-4 Ua Micro: Bacteria 2+ Test performed on Mar 31, 2020 08:30 Urine Culture Pending CC 30 CFU/ml Yeast Isolate ID YEASP (Preliminary) Margie albicans CANALB Ua Micro: Yeast TRACE Impression: Recurrent prostate cancer status post cystoscopy and excision in February 2015 followed by combined androgen blockade with Zoladex and Casodex. Now with gradual increasing PSA , While on combined androgen blockade Initially he was diagnosed prostate cancer in 1999- at that time he underwent retropubic radical prostatectomy. Status post radiation therapy in 2010 for increasing PSA and lymphadenopathy. Hematuria/dysuria since February 2015. CT scan of abdomen pelvis done on 03/02/2018 showed soft tissue mass measuring 2.2 cm x 3.2 x 2.9 in the expected location of the prostate inseparable from the urinary bladder floor urinary bladder wall is diffusely thickened and there is a soft tissue attenuation between the soft tissue mass in the anterior infra levator rectal wall, rectal lesion not excluded Seen by Dr. Edwards on 10/24/2017 and his impression was changes in the rectum are probably due to prostate invasion rather than primary rectal lesion. 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 Mr Kauffman was seen by Dr Lloyd for persistent UTI symptoms post op and was placed on snf antibiotics. His symptoms resolved and he began recommended chemotherapy with docetaxel on 03/14/2018. Mr. Kauffman has tolerated the chemotherapy relatively well. He did have chemotherapy-induced neutropenia on day 8 of cycle 1. His initial ANC at time of treatment on 03/14/2018 was 13,300 on day 8 his ANC was [address] PET scan done on 05/06/2018 showed no evidence for recurrent or residual malignancy., Tiny scattered pelvic nodes are radiographically benign and FDG negative, no findings to indicate osseous metastatic disease and left-sided hydronephrosis is present and a ureteral catheter is in place. PSA checked on 05/15/2018 showed 1.81 compared to 6.49 on 03/14/2018 when chemotherapy with Taxotere was started And concluded his chemotherapy with Taxotere e.g. 6 doses on 06/27/2018 Status post left ureteral stent placement on 05/22/2018 Again replaced on 09/21/2018 Went to [facility] on 09/07/2018,Choline C 11 scan done on 09/07/2018 showed large choline avid recurrence in the prostatectomy bed involving the posterior bladder base has improved since prior exam, however suspicious new small focus of choline avid disease along the right posterior bladder wall. New choline avid node metastatic disease including a right supraclavicular node. And increasing pulmonary infiltrate and/or atelectasis in the posterior lower lobes with reactive choline activity. so he was started on Zytiga/prednisone for one year along with an 3 monthly Zoladex. Mr Kauffman returned to the [facility] on 12/25/2018 and had choline C 11 scan done on same date showed when compared with choline scan done on 09/07/2018, increased choline uptake is seen again in the prostatectomy bed on the left and involving the posterior bladder base is essentially unchanged from the previous scan. The small lymph nodes with choline uptake seen on the previous scans are unchanged the pulmonary infiltrates have decreased. No new sites of abnormal choline uptake are noted. Clinically, patient was doing reasonably, but recently had evidence of disease progression confirmed with CT PET choline and progressive PSA. Mr Kauffman went to [facility] for follow-up and now palliative chemotherapy with cabazitaxel is recommended. Mr Kauffman had disease progression on Xtandi, which he was tolerating well but presented with progressive disease and he was also on 3 monthly Zoladex. At that point, Mr Kauffman has discontinued Xtandi and role of cabazitaxel was discussed. The current treatment plan is cabazitaxel 20 mg/m??? every 3 weeks along with Neulasta to prevent chemotherapy-induced neutropenia as patient is a high risk. The initial plan was for him to receive 4 cycles of chemotherapy as recommended by [facility] and then he will go to clinic for follow-up evaluation including scans. Mr Kauffman was advised to pursue treatment with cabazitaxel with Neulasta support. Mr. Kauffman underwent right Port-A-Cath placement in the SVC/RA junction per Dr. Caballero at [facility] on February 14, 2020. He began his first cycle on 02/21/2020. He continues with every 3-month Zoladex. His last injection was given on April 29, 2020. He is currently off of all prednisone.And completed 8 cycles of Jevtana on July 23, 2020 Plan: Discussed with patient regarding his labs white blood count 10.2 hemoglobin 13.2 hematocrit 42.2 platelets 331,000 CMP within normal limits PSA 3.60 compared to 2.17 on August 13, 2020 and 2.54 on July 22, 2020 and follow-up CT PET scan shows extensive involvement of bladder now with right moderate hydronephrosis and left pelvis involvement Clinically, patient doing well with no new signs symptom suggestive of disease progression, but his follow-up labs shows PSA continue to progress and follow-up CT PET scan done on September 05, 2019 showed disease progression with left pubic bone involvement and right moderate hydronephrosis but surprisingly, patient is not symptomatic.Patient was informed in case he has any new signs symptom, especially right flank pain, he need to call us or go to ER for evaluation As per patient he is scheduled to see Dr. Lewis via telemedicine on Tuesday to discuss further plan. And Dr. Lewis's office was contacted today and he will call us on Tuesday after talking to the patient, for further planning. Signed By: Tom Alcazar M.D. <<Signature on File>>
== END 2020-09-18 14:27 | disposition home or self-care (01) ==
LOC: ONCMED 14:33
PROVIDERS: PCP Nurse Practitioner; Visit Provider Internal Medicine Hematology & Oncology
DX: C61 Malignant neoplasm of prostate (principal); C78.5 Secondary malignant neoplasm of large intestine and rectum; C79.11 Secondary malignant neoplasm of bladder; R97.20 Elevated prostate specific antigen [PSA]; N02.9 Recurrent and persistent hematuria with unspecified morphologic changes; R30.0 Dysuria; Z79.52 Long term (current) use of systemic steroids; Z79.818 Long term (current) use of other agents affecting estrogen receptors and estrogen levels
CPT/HCPCS: 36591; 80053; 85025; 99214; G0103

== ENCOUNTER 2020-10-14 12:38 | Outpatient (CLI) | payer MEDICARE, OTHER, SELFPAY ==
[2020-10-14 13:12] LABS: Basophils # 0.1 10^3/uL (0.0-0.1); Basophils % 0.6 %; Eosinophils # 0.4 10^3/uL (0.0-0.8); Hematocrit 43.4 % (42.0-52.0); Hemoglobin 13.7 g/dL (11.7-16.6); Lymphocytes # 2.8 10^3/uL (0.8-4.8); Lymphocytes % 27.3 %; Mean Corpuscular HGB Conc 31.6 g/dL (30.0-36.0); Mean Corpuscular Hemoglobin 27.1 pg (28.0-34.0); Mean Corpuscular Volume 85.8 fL (80-94); Mean Platelet Volume 9.4 fL (7.4-10.4); Monocytes # 0.9 10^3/uL (0.2-0.9); Monocytes % 8.7 %; Neutrophils # 6.03 10^3/uL (1.8-7.7); Neutrophils % 59.2 %; Nucleated Red Blood Cells % 0 %; Platelet Count 268 10^3/cmm (130-400); Red Blood Count 5.06 10^6/uL (4.1-5.3); Red Cell Distribution Width 17.7 % (12.1-15.1); White Blood Count 10.2 10^3/uL (4.0-10.0)
[2020-10-14 13:56] LABS: Alanine Aminotransferase 12 U/L (0-41); Albumin Level 4.1 g/dL (3.5-5.2); Alkaline Phosphatase 71 IU/L (40-130); Aspartate Amino Transferase 11 U/L (0-40); Blood Urea Nitrogen 18 mg/dL (8-23); Calcium 9.4 mg/dL (8.5-10.5); Carbon Dioxide 22 mmol/L (22-29); Chloride 103 mmol/L (98-107); Globulin 3.9 g/dL (1.3-4.6); Glucose 120 mg/dL (65-115); Osmolality Calculated 287 mOsm/kg (285-295); Sodium 137 mmol/L (136-145); Total Bilirubin 0.4 mg/dL (0.15-1.2)
== END 2020-10-14 12:39 | disposition home or self-care (01) ==
PROVIDERS: PCP Nurse Practitioner; Visit Provider Internal Medicine Hematology & Oncology
DX: C61 Malignant neoplasm of prostate (principal)
CPT/HCPCS: 36591; 80053; 84153; 85025

== ENCOUNTER 2020-10-16 05:33 | Outpatient (CLI) | payer MEDICARE, OTHER, SELFPAY ==
--- NOTE | 2020-10-16 17:28 | ONC FU_ITS ---
Dr. Alcazar follow up note Patient: Alex Kauffman Unit #: [id number]: [id number] Dicatated By: Tom Alcazar M.D.Date of Visit:Oct 16, 2020 Onc Med Follow-up/Prog Note History of Present Illness: Mr. Kauffman is a 79-year-old gentleman with long-standing history of prostate cancer. Initially, he was diagnosed with prostate cancer in May 2000. At that time, his PSA was 9 and a biopsy showed 2+ 2/3+4/3+3 with the largest volume equal 3+4. Underwent radical retropubic prostatectomy in June 2000. He was followed with PSA postoperatively and during follow-up it was noted his PSA was increasing but slowly. Finally in 2010 it was felt he needed further treatment. He was treated with radiation therapy which he completed in March 2011. It showed good response with PSA down to 0.05. During follow-up in November 2012, his PSA gone up to 0.21; in May 2013 up to 0.35 and in November 2013 it was 0.93. In February 2015, he underwent cystoscopic examination found to have local recurrence. It was resected and confirmed to be poorly differentiated prostate cancer. At that time he was started on combined androgen blockade postop. His treatment was complicated by recurrent hematuria and burning micturition. Follow-up lab showed a gradual increase in his PSA level and from 07/06/2017 it was 2.5 earlier while on combined androgen blockade. On 12/21/2017, he underwent cystoscopy with transurethral resection of a bladder lesion, cystourethroscopy with placement of ureteral stent on left side and dilation of urethra. 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 Mr Kauffman has had persistent urine tract infection and recently finished course of Levaquin. Repeat urinalysis on 02/16/2018 showed persistent urine tract infection: leukoesterase positive and persistent RBCs and WBCs on microscopic evaluation. Mr Kauffman reported he did notice pus drops every time after he finish his urination. His case was discussed with Dr. Lloyd, urologist, and he was referred for possible cystoscopy to rule out postsurgical abscess or other source of infection- before we started chemotherapy. Mr Kauffman reported that he has seen Dr. Lloyd. Dr Lloyd replaced the urinary stent and did notice lots of urinary debris. Mr Kauffman was started on long-term antibiotics with Hiprex 1 g by mouth daily. He began his first dose of docetaxel on 03/14/2018. He was not given Neulasta as he did not have insurance approval at the time of chemotherapy. He did have significant neutropenia on day 8 with an ANC of 600. He did not have symptoms and gradually recovered. He did qualify for Neulasta administration with cycle 2 and Concluded his chemotherapy e.g. 6 doses on 06/27/2018 He went to [facility] on 09/07/2018 and as per patient and his , patient was started on Zytiga/prednisone for one year in addition to Zoladex every 3 months as scans done at [facility] showed excellent response to chemotherapy but persistent lung nodule and pelvic lesion and his PSA done there was around 1. We will obtain follow-up note from [facility] and review. On 09/21/2018 patient had left ureteral stent replacement. Mr Kauffman went to [facility] for follow-up on 12/25/2018 and had choline C 11 scan done, when compared with one from 09/07/2018, showed increased choline uptake is again seen in the prostatectomy bed on the left and involving the posterior bladder base is essentially unchanged from the previous scan. The small lymph nodes with choline uptake seen on the previous scan are unchanged. The pulmonary infiltrate have decreased. No new sites of abnormal choline uptake are noted. He was Tolerating ADT with Zoladex and Zytiga/prednisone well. He went to [facility] for follow-up on 06/29/2019. He underwent PET/CT choline which showed likely tumor at the left of urethral vesicle junction has SUV of 4.5 compared to 3.4 on 12/25/2018. Nonspecific activity to the right of urethrovesical junction has SUV of 1.8 compared to 2.1 previously. Likely tumor involving left sided urinary bladder including the left ureterovesical junction has SUV of 6.2 compared to 6.6 previously. Likely metastatic activity in the proximal right external iliac lymph node has SUV of 2.6 versus 2.2 previously. Nonspecific activity along the right common iliac vessels and adjacent to lumbar degenerative changes as current SUV of 2.9 versus 2.1 previously and his PSA was 2.5. based on these findings, Dr. Lewis recommended continue with Zoladex but discontinue Zytiga and taper off prednisone. Initiate xtandi and choline And underwent follow-up CT PET on December 27, 2019 at [facility] which showed disease progression when compared with scan done on June 28, 2019 and showed malignant appearing choline activity along the urinary bladder oneal has increased,, prominent disease in the left UVJ region has current SUV of 9.7 versus 6.2 on June 2019. Metastatic appearing nodularity in the fat to the right of the urinary bladder anteriorly has increased. Approximate 1.7 x 1.3 cm right external iliac node measuring 0.7 x 0.5 cm on June 28, 2019 and now with SUV of 6 compared to 2.6 at that time. A likely metastatic right common iliac node now measures 1.8 x 1.2 cm versus 1 x 0.7 cm on June 28, 2019. Multiple nodes in the thorax shows interval increase activity compared to June 28, 2019, these are nonspecific could be due to granulomatous inflammation. As far as his left pelvic pain is concern, which is under control and left nephrostomy tube was suggested rather than continuing with ureteral stent exchanges every couple of months. Mr Kauffman was seen by Dr. Lewis and MSI/BRCA 1 and 2 were checked and both came back negative- so no role of immunotherapy with pembrolizumab and olaparib. Clinical trial was also considered but considering patient's age and overall condition, further chemotherapy with cabazitaxel was recommended and patient agreed. And he was advised to continue Xtandi until cabazitaxel is planned. Mr Kauffman began his first cycle of cabazitaxel on February 21, 2020. His Zoladex was last given on 01/28/2020. Mr Kauffman underwent choline CT PET scan after 4 doses of Jevtana at [facility] which was done on May 09, 2020 showed stable to mildly improved choline avid bladder and pelvic node metastatic disease. Enlarging subcentimeter left periaortic retroperitoneal nodes with low-grade colon activity, technically indeterminate for new nodes metastatic disease., Could be reactive. Patient was evaluated by on May 13, 2020 and his recommendations were to continue with Jevtana for 4 more cycles and then repeat: CT PET scan and also continue with 3 monthly Zoladex. And continue left ureteral stent exchanges locally. He continues with treatment.Patient completed total 8 cycles of Jevtana on July 23, 2020 And follow-up CT PET scan prostate done on September 05, 2020 bladder metastatic disease with predominant involvement of left ureterovesical region and local invasion into pelvis including involvement of left pubic bone. The nodularity at right ureterovesical region with involvement of distal right ureter resulting in moderate right hydronephrosis, which may be new Mild uptake within the subcentimeter left para-aortic node is indeterminate Uptake within mediastinal and bilateral hilar nodes is nonspecific Came for follow-up, denies any specific complaint except generalized weakness fatigue, as per patient he is being followed by Dr. Lloyd and patient is taking oral antibiotic for chronic urine tract infection and he is scheduled see Dr. Lloyd on November 08, 2019 for possible left ureteral stent change.His case was discussed with Dr. Lewis at [facility] in [place] and he has recommended apalutamide or darolutamide while continue with Zoladex and also consider low-dose dexamethasone. Patient denies any fever chills denies any nausea or vomiting denies any diarrhea constipation denies any hematuria or dysuria Medications: AZO Yeast Plus 1 Tablet Oral daily PRN, Hiprex 1 Tablet (of 1 G) Oral b.i.d., MetFORMIN HCl 1 Tablet (of 500 mg) Oral daily, oxyCODONE-Acetaminophen 1 Tablet (of 5-325 mg) Oral q 4 to 6 hours PRN, Vitamin C 1 Tablet (of 1 G) Oral daily Allergies: Cipro, Penicillins, and Sulfa Antibiotics. Review of Systems: Review of Systems is not available for this patient. Vital Signs: Performed on Oct 16, 2020 08:19 Height - 67.00 in Weight - 211.8 lbs (HIGH) BSA - 2.07 sq.m BMI - 33.17 (HIGH) Temperature - 99.4 F (HIGH) Pulse - 97 /min Respiration - 18 /min BP - 155/67 mm(hg) (HIGH) O2 Sat - 95 % (LOW) Pain - 0 Fatigue - 7 Performance Status: 2 - Ambulatory/capable of all self-care, unable to perform any work activities. Up and about more than 50% of waking hours. (ECOG) Physical Examination: ENMT - No mouth sores, no thrush, no jaundice, Respiratory - Lungs are clear to auscultation, Cardiovascular - Regular rate and rhythm of heart, Abdomen - Soft, bowel sounds present, Extremities - No visible edema. Lab/Imaging: Test performed on Sep 18, 2020 14:50 Sodium 140 mmol/L Potassium 4.0 mmol/L Chloride 104 mmol/L CO2 24 mmol/L Anion Gap 16.0 BUN 19 mg/dL Creatinine 0.9 mg/dL Cr Clearance (Est) 91.72 mL/min Glucose 106 mg/dL Osmolality - Calculated 293 mOsm/kg Calcium 9.5 mg/dL Protein, Total 7.7 g/dL Albumin 4.0 g/dL Globulin 3.7 g/dL Bilirubin, Total 0.3 mg/dL ALT (SGPT) 13 U/L AST (SGOT) 12 U/L Alkaline Phosphatase 69 IU/L WBC 10.2 10 3/uL RBC 4.96 10 6/uL HGB 13.2 g/dL HCT 42.2 % MCV 85.1 fL MCH 26.6 pg MCHC 31.3 g/dL RDW 19.5 % Platelet Count 331 10 3/cmm MPV 9.7 fL Neutrophils 5.42 10 3/uL Lymphocytes 3.1 10 3/uL Monocytes 0.9 10 3/uL Eosinophils 0.6 10 3/uL Basophils 0.1 10 3/uL Neutrophil % 53.0 % Lymphocyte % 30.7 % Monocyte % 9.2 % Eosinophil % 6.3 % Basophils % 0.6 % NRBC % 0 % PSA 3.60 ng/mL Test performed on Aug 13, 2020 09:01 Magnesium 1.8 mg/dL Test performed on Apr 22, 2020 13:40 Ua Color Yellow Ua Appearance Hazy Ua pH 6 Ua Specific Gully 1.015 Ua Glucose Norm Ua Ketones Negative Ua Protein 3+ Ua Blood 3+ Ua Bilirubin 1+ Ua Urobilinogen 1 mg/dL Ua Nitrites Negative Ua Leukocyte Esterase 2+ Ua Micro: WBC TOO NUMEROUS TO CNT /hpf Ua Micro: RBC 40-50 /hpf Ua Micro: Squam Epith Cells 0-4 Ua Micro: Bacteria 2+ Impression: Recurrent prostate cancer status post cystoscopy and excision in February 2015 followed by combined androgen blockade with Zoladex and Casodex. Now with gradual increasing PSA , While on combined androgen blockade Initially he was diagnosed prostate cancer in 1999- at that time he underwent retropubic radical prostatectomy. Status post radiation therapy in 2010 for increasing PSA and lymphadenopathy. Hematuria/dysuria since February 2015. CT scan of abdomen pelvis done on 03/02/2018 showed soft tissue mass measuring 2.2 cm x 3.2 x 2.9 in the expected location of the prostate inseparable from the urinary bladder floor urinary bladder wall is diffusely thickened and there is a soft tissue attenuation between the soft tissue mass in the anterior infra levator rectal wall, rectal lesion not excluded Seen by Dr. Edwards on 10/24/2017 and his impression was changes in the rectum are probably due to prostate invasion rather than primary rectal lesion. 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 Mr Kauffman was seen by Dr Lloyd for persistent UTI symptoms post op and was placed on residential antibiotics. His symptoms resolved and he began recommended chemotherapy with docetaxel on 03/14/2018. Mr. Kauffman has tolerated the chemotherapy relatively well. He did have chemotherapy-induced neutropenia on day 8 of cycle 1. His initial ANC at time of treatment on 03/14/2018 was 13,300 on day 8 his ANC was [address] CT PET scan done on 05/06/2018 showed no evidence for recurrent or residual malignancy., Tiny scattered pelvic nodes are radiographically benign and FDG negative, no findings to indicate osseous metastatic disease and left-sided hydronephrosis is present and a ureteral catheter is in place. PSA checked on 05/15/2018 showed 1.81 compared to 6.49 on 03/14/2018 when chemotherapy with Taxotere was started And concluded his chemotherapy with Taxotere e.g. 6 doses on 06/27/2018 Status post left ureteral stent placement on 05/22/2018 Again replaced on 09/21/2018 Went to [facility] on 09/07/2018,Choline C 11 scan done on 09/07/2018 showed large choline avid recurrence in the prostatectomy bed involving the posterior bladder base has improved since prior exam, however suspicious new small focus of choline avid disease along the right posterior bladder wall. New choline avid node metastatic disease including a right supraclavicular node. And increasing pulmonary infiltrate and/or atelectasis in the posterior lower lobes with reactive choline activity. so he was started on Zytiga/prednisone for one year along with an 3 monthly Zoladex. Mr Kauffman returned to the [facility] on 12/25/2018 and had choline C 11 scan done on same date showed when compared with choline scan done on 09/07/2018, increased choline uptake is seen again in the prostatectomy bed on the left and involving the posterior bladder base is essentially unchanged from the previous scan. The small lymph nodes with choline uptake seen on the previous scans are unchanged the pulmonary infiltrates have decreased. No new sites of abnormal choline uptake are noted. Clinically, patient was doing reasonably, but recently had evidence of disease progression confirmed with CT PET choline and progressive PSA. Mr Kauffman went to [facility] for follow-up and now palliative chemotherapy with cabazitaxel is recommended. Mr Kauffman had disease progression on Xtandi, which he was tolerating well but presented with progressive disease and he was also on 3 monthly Zoladex. At that point, Mr Kauffman has discontinued Xtandi and role of cabazitaxel was discussed. The current treatment plan is cabazitaxel 20 mg/m??? every 3 weeks along with Neulasta to prevent chemotherapy-induced neutropenia as patient is a high risk. The initial plan was for him to receive 4 cycles of chemotherapy as recommended by [facility] and then he will go to clinic for follow-up evaluation including scans. Mr Kauffman was advised to pursue treatment with cabazitaxel with Neulasta support. Mr. Kauffman underwent right Port-A-Cath placement in the SVC/RA junction per Dr. Caballero at [facility] [place] [place] on February 14, 2020. He began his first cycle on 02/21/2020. He continues with every 3-month Zoladex. His last injection was given on April 29, 2020. He is currently off of all prednisone.And completed 8 cycles of Jevtana on July 23, 2020 And follow-up CT PET scan done on September 05, 2020 showed bladder metastatic disease with predominant involvement of left ureterovesical region and local invasion into pelvis including involvement of left pubic bone and there is nodularity at right ureterovesical region with involvement of distal right ureter resulting in moderate hydronephrosis Mild uptake within the subcentimeter left para-aortic lymph node is indeterminate., Patient is being followed by Dr. Lloyd, case was discussed with Dr. Lewis at [facility], he is recommended to discontinue Jevtana and start on apalutamide along with Zoladex and also low-dose dexamethasone and may consider consultation with radiation oncology regarding involved field radiation therapy Plan: Regarding his labs white blood count 2.2 hemoglobin 13.7 hematocrit 43.4 platelets 268,000 CMP within normal limits PSA 5.56 compared to 3.6 on September 18, 2020 Clinically, patient is doing well with no signs symptoms but his follow-up CT PET scan shows evidence of disease progression, as per discussion with Dr. Lewis at [facility] in [place], will consider discontinue his Jevtana and start him on apalutamide 240 mg p.o. daily and continue with 3 monthly Zoladex and also add dexamethasone 2 mg p.o. twice daily. And also consider guardant 360 to identify therapeutic mutations, as per patient had guardant 360 done earlier at [facility] so would not consider., Patient will return to clinic 2 weeks after apalutamide is started with CBC CMP and PSA and for Zoladex All the side effect possible benefits associated with apalutamide were discussed, further teaching done by chemotherapy nurse and will obtain approval from his insurance prior to the treatment Signed By: Tom Alcazar M.D. <<Signature on File>>
== END 2020-10-16 05:34 | disposition home or self-care (01) ==
LOC: ONCMED 05:40
PROVIDERS: PCP Nurse Practitioner; Visit Provider Internal Medicine Hematology & Oncology
DX: C61 Malignant neoplasm of prostate (principal); C79.11 Secondary malignant neoplasm of bladder; C79.51 Secondary malignant neoplasm of bone; R93.5 Abnormal findings on diagnostic imaging of other abdominal regions, including retroperitoneum; Z79.818 Long term (current) use of other agents affecting estrogen receptors and estrogen levels
CPT/HCPCS: 99215

== ENCOUNTER 2020-10-29 06:08 | Outpatient (CLI) | payer MEDICARE, OTHER, SELFPAY ==
[2020-10-29] MEDS: goserelin acetate 10.8 mg Implant SUBCUT (15:20)
[2020-10-29] MEDS: lidocaine 1% INJ 20 mL INJECTION (15:25)
--- NOTE | 2020-11-09 21:16 | ONC FU_ITS ---
Jenna K[facility] Patient Note Patient: Alex Kauffman Unit #: [id number]: 1940 Dictated By: Yesenia GordonDate of Visit: Oct 29, 2020 Onc MED Follow-Up/Prog Note Chief Complaint: Prostate cancer History of Present Illness: Mr. Kauffman is a 79-year-old gentleman with long-standing history of prostate cancer. Initially, he was diagnosed with prostate cancer in May 2000. At that time, his PSA was 9 and a biopsy showed 2+ 2/3+4/3+3 with the largest volume equal 3+4. Underwent radical retropubic prostatectomy in June 2000. He was followed with PSA postoperatively and during follow-up it was noted his PSA was increasing but slowly. Finally in 2010 it was felt he needed further treatment. He was treated with radiation therapy which he completed in March 2011. It showed good response with PSA down to 0.05. During follow-up in November 2012, his PSA gone up to 0.21; in May 2013 up to 0.35 and in November 2013 it was 0.93. In February 2015, he underwent cystoscopic examination found to have local recurrence. It was resected and confirmed to be poorly differentiated prostate cancer. At that time he was started on combined androgen blockade postop. His treatment was complicated by recurrent hematuria and burning micturition. Follow-up lab showed a gradual increase in his PSA level and from 07/06/2017 it was 2.5 earlier while on combined androgen blockade. On 12/21/2017, he underwent cystoscopy with transurethral resection of a bladder lesion, cystourethroscopy with placement of ureteral stent on left side and dilation of urethra. 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 Mr Kauffman has had persistent urine tract infection and recently finished course of Levaquin. Repeat urinalysis on 02/16/2018 showed persistent urine tract infection: leukoesterase positive and persistent RBCs and WBCs on microscopic evaluation. Mr Kauffman reported he did notice pus drops every time after he finish his urination. His case was discussed with Dr. Lloyd, urologist, and he was referred for possible cystoscopy to rule out postsurgical abscess or other source of infection- before we started chemotherapy. Mr Kauffman reported that he has seen Dr. Lloyd. Dr Lloyd replaced the urinary stent and did notice lots of urinary debris. Mr Kauffman was started on long-term antibiotics with Hiprex 1 g by mouth daily. He began his first dose of docetaxel on 03/14/2018. He was not given Neulasta as he did not have insurance approval at the time of chemotherapy. He did have significant neutropenia on day 8 with an ANC of 600. He did not have symptoms and gradually recovered. He did qualify for Neulasta administration with cycle 2 and Concluded his chemotherapy e.g. 6 doses on 06/27/2018 He went to [facility] on 09/07/2018 and as per patient and his , patient was started on Zytiga/prednisone for one year in addition to Zoladex every 3 months as scans done at [facility] showed excellent response to chemotherapy but persistent lung nodule and pelvic lesion and his PSA done there was around 1. We will obtain follow-up note from [facility] and review. On 09/21/2018 patient had left ureteral stent replacement. Mr Kauffman went to [facility] for follow-up on 12/25/2018 and had choline C 11 scan done, when compared with one from 09/07/2018, showed increased choline uptake is again seen in the prostatectomy bed on the left and involving the posterior bladder base is essentially unchanged from the previous scan. The small lymph nodes with choline uptake seen on the previous scan are unchanged. The pulmonary infiltrate have decreased. No new sites of abnormal choline uptake are noted. He was Tolerating ADT with Zoladex and Zytiga/prednisone well. He went to [facility] for follow-up on 06/29/2019. He underwent PET/CT choline which showed likely tumor at the left of urethral vesicle junction has SUV of 4.5 compared to 3.4 on 12/25/2018. Nonspecific activity to the right of urethrovesical junction has SUV of 1.8 compared to 2.1 previously. Likely tumor involving left sided urinary bladder including the left ureterovesical junction has SUV of 6.2 compared to 6.6 previously. Likely metastatic activity in the proximal right external iliac lymph node has SUV of 2.6 versus 2.2 previously. Nonspecific activity along the right common iliac vessels and adjacent to lumbar degenerative changes as current SUV of 2.9 versus 2.1 previously and his PSA was 2.5. based on these findings, Dr. Lewis recommended continue with Zoladex but discontinue Zytiga and taper off prednisone. Initiate xtandi and choline And underwent follow-up CT PET on December 27, 2019 at [facility] which showed disease progression when compared with scan done on June 28, 2019 and showed malignant appearing choline activity along the urinary bladder oenal has increased,, prominent disease in the left UVJ region has current SUV of 9.7 versus 6.2 on June 2019. Metastatic appearing nodularity in the fat to the right of the urinary bladder anteriorly has increased. Approximate 1.7 x 1.3 cm right external iliac node measuring 0.7 x 0.5 cm on June 28, 2019 and now with SUV of 6 compared to 2.6 at that time. A likely metastatic right common iliac node now measures 1.8 x 1.2 cm versus 1 x 0.7 cm on June 28, 2019. Multiple nodes in the thorax shows interval increase activity compared to June 28, 2019, these are nonspecific could be due to granulomatous inflammation. As far as his left pelvic pain is concern, which is under control and left nephrostomy tube was suggested rather than continuing with ureteral stent exchanges every couple of months. Mr Kauffman was seen by Dr. Lewis and MSI/BRCA 1 and 2 were checked and both came back negative- so no role of immunotherapy with pembrolizumab and olaparib. Clinical trial was also considered but considering patient's age and overall condition, further chemotherapy with cabazitaxel was recommended and patient agreed. And he was advised to continue Xtandi until cabazitaxel is planned. Mr Kauffman began his first cycle of cabazitaxel on February 21, 2020. His Zoladex was last given on 01/28/2020. Mr Kauffman underwent choline CT PET scan after 4 doses of Jevtana at [facility] which was done on May 09, 2020 showed stable to mildly improved choline avid bladder and pelvic node metastatic disease. Enlarging subcentimeter left periaortic retroperitoneal nodes with low-grade colon activity, technically indeterminate for new nodes metastatic disease., Could be reactive. Patient was evaluated by on May 13, 2020 and his recommendations were to continue with Jevtana for 4 more cycles and then repeat: CT PET scan and also continue with 3 monthly Zoladex. And continue left ureteral stent exchanges locally. He continues with treatment.Patient completed total 8 cycles of Jevtana on July 23, 2020 And Followup Choline PET/CT scan on September 05, 2020 reported bladdrmetastatic disease with predominant involvement of left ureterovesical region and local invasion into pelvis including involvement of left pubic bone. The nodularity at right ureterovesical region with involvement of distal right ureter resulting in moderate right hydronephrosis, which may be new; Mild uptake within the subcentimeter left para-aortic node is indeterminate; Uptake within mediastinal and bilateral hilar nodes is nonspecific Mr Kauffman is being followed by Dr. 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 He is scheduled see Dr. Lloyd on November 08, 2019 for possible left ureteral stent change. His prostate cancer was discussed with Dr. Lewis at [facility] in [facility]. Dr Lewis has recommended apalutamide or darolutamide while continuing with Zoladex and also consider low-dose dexamethasone. Mr. Kauffman is here today for follow-up. He has received the Erleada (apalutamide) and is here today for education. He will continue Zoladex as well. He is due for his next dose today. He denies any new concerns. He has had no fever or chills. He denies any recent Covid 19 exposure. He states his appetite is good his energy is fair. He denies new pain. He denies any diarrhea or constipation. He states his had urinary frequency but thinks that is related to the stent. He denies any hematuria. He denies any new shortness of breath orthopnea. He denies any hemoptysis. His ECOG is 1. Past Medical History: Type II diabetes Past Surgical History: Colonoscopy Radical retropubic prostatectomy Right knee surgery Left kidney stent replacement in 2019 Kidney stent replacement in 2018 Kidney stent replacement in 2018 Stent replacement is done every 2 monthes Allergies: Cipro, Penicillins, and Sulfa Antibiotics. Medications: AZO Yeast Plus 1 Tablet Oral daily PRN Hiprex 1 Tablet (of 1 G) Oral b.i.d. MetFORMIN HCl 1 Tablet (of 500 mg) Oral daily oxyCODONE-Acetaminophen 1 Tablet (of 5-325 mg) Oral q 4 to 6 hours PRN Vitamin C 1 Tablet (of 1 G) Oral daily Family History: Mr. Kauffman's mother at age 75. Mr. Kauffman's father at age 87. Mr. Kauffman has 2 brothers: 2 . Mr. Kauffman's first brother's polio. Another brother's coronary artery disease. Social History: Mr. Kauffman is and he is retired. Mr. Kauffman no longer smokes. He has no history of drinking. He has indicated exposure to the following products: chewing tobacco. Mr. Kauffman reports the following support systems: lives with spouse, significant other, family, or friends. His diet consists of regular meals. formerly chewed tobacco, quit in 2000. Review Of Symptoms: Constitutional Denies fevers, chills, night sweats, excessive fatigue or weight loss. Allergic/Immunologic No reactions. Eyes Denies significant visual changes. No diplopia. No amaurosis. ENMT Denies changes in hearing, sore throat, mouth sores, difficulty or changes in swallowing ability, and/or sinus drainage. Endocrine has on going hot flashes at times but normal for him. Hematologic/Lymphatic Denies easy bruising or bleeding. The patient denies any tender or palpable lymph nodes. Respiratory Denies dyspnea on exertion, chest pain, cough or hemoptysis. Denies orthopnea. Cardiovascular Denies anginal chest pain, palpitations or orthopnea. Gastrointestinal Denies nausea, vomiting, diarrhea, GI bleeding, or constipation. Denies change in bowel habits and/or stool color, no heartburn or early satiety. Genitourinary (M) Denies hematuria, dysuria. He has increased frequency but states he thinks that is due to his stent. He sees Dr Lloyd soon. He does have occasional incontinence. Musculoskeletal Denies joint pain, swelling or redness. No decreased range of motion. Integumentary Denies chronic rashes, inflammation, ulcerations or skin changes. Neurologic Denies headache, blurred vision, and no areas of focal weakness or numbness. Normal gait. No sensory problems. Psychiatric Denies insomnia, depression, sherrill or mood swings. Vital Signs: Performed on Oct 29, 2020 14:30 Height - 67.00 in Weight - 206 lbs (LOW) BSA - 2.05 sq.m BMI - 32.26 (HIGH) Temperature - 96.9 F (LOW) Pulse - 70 /min Respiration - 16 /min BP - 136/69 mm(hg) O2 Sat - 95 % (LOW) Pain - 0,1 - No physically strenuous activity, but ambulatory and able to carry out light or sedentary work (e.g. office work, light house work). (ECOG) Physical Examination: Constitutional Alert, oriented, no acute distress. Skin pink, warm and dry. Denies fever or chills. Head Normocephalic; atraumatic. Eyes Conjunctivae and sclerae are clear and without icterus. Pupils are reactive and equal. ENMT Sinuses are nontender. No oral exudates, ulcers, masses, thrush or mucositis. Oropharynx clear. Tongue normal. Hematologic/Lymphatic No petechiae or purpura. No tender or palpable lymph nodes in the cervical or supraclavicular areas. Respiratory Lungs are clear to auscultation without rhonchi or wheezing. Cardiovascular Regular rate and rhythm of heart without murmurs,clicks, gallops or rubs. Breasts Abdomen Non-tender, non-distended, no masses, or ascites. Good bowel sounds noted in all quads. No guarding or rebound tenderness. No pulsatile masses. Back/Spine Non-tender to palpation. Extremities No visible deformities, no cyanosis, clubbing or edema. Musculoskeletal No tenderness or swelling, normal range of motion without obvious weakness. Neurologic No sensory or motor deficits, normal cerebellar function, normal gait. Psychiatric Alert and oriented times three. Coherent speech. Verbalizes understanding of our discussions today. Laboratory:Test performed on Sep 18, 2020 14:50 Sodium 140 mmol/L Potassium 4.0 mmol/L Chloride 104 mmol/L CO2 24 mmol/L Anion Gap 16.0 BUN 19 mg/dL Creatinine 0.9 mg/dL Cr Clearance (Est) 91.72 mL/min Glucose 106 mg/dL Osmolality - Calculated 293 mOsm/kg Calcium 9.5 mg/dL Protein, Total 7.7 g/dL Albumin 4.0 g/dL Globulin 3.7 g/dL Bilirubin, Total 0.3 mg/dL ALT (SGPT) 13 U/L AST (SGOT) 12 U/L Alkaline Phosphatase 69 IU/L WBC 10.2 10 3/uL RBC 4.96 10 6/uL HGB 13.2 g/dL HCT 42.2 % MCV 85.1 fL MCH 26.6 pg MCHC 31.3 g/dL RDW 19.5 % Platelet Count 331 10 3/cmm MPV 9.7 fL Neutrophils 5.42 10 3/uL Lymphocytes 3.1 10 3/uL Monocytes 0.9 10 3/uL Eosinophils 0.6 10 3/uL Basophils 0.1 10 3/uL Neutrophil % 53.0 % Lymphocyte % 30.7 % Monocyte % 9.2 % Eosinophil % 6.3 % Basophils % 0.6 % NRBC % 0 % PSA 3.60 ng/mL Impression: Recurrent prostate cancer status post cystoscopy and excision in February 2015 followed by combined androgen blockade with Zoladex and Casodex. with gradual increasing PSA while on combined androgen blockade Initially he was diagnosed prostate cancer in 1999- at that time he underwent retropubic radical prostatectomy. Status post radiation therapy in 2010 for increasing PSA and lymphadenopathy. Hematuria/dysuria since February 2015. CT scan of abdomen pelvis done on 03/02/2018 showed soft tissue mass measuring 2.2 cm x 3.2 x 2.9 in the expected location of the prostate inseparable from the urinary bladder floor urinary bladder wall is diffusely thickened and there is a soft tissue attenuation between the soft tissue mass in the anterior infra levator rectal wall, rectal lesion not excluded Seen by Dr. Edwards on 10/24/2017 and his impression was changes in the rectum are probably due to prostate invasion rather than primary rectal lesion. 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 His symptoms resolved and he began recommended chemotherapy with docetaxel on 03/14/2018. Mr. Kauffman has tolerated the chemotherapy relatively well. He did have chemotherapy-induced neutropenia on day 8 of cycle 1. His initial ANC at time of treatment on 03/14/2018 was 13,300 on day 8 his ANC was 600[address] CT PET scan done on 05/06/2018 showed no evidence for recurrent or residual malignancy., Tiny scattered pelvic nodes are radiographically benign and FDG negative, no findings to indicate osseous metastatic disease and left-sided hydronephrosis is present and a ureteral catheter is in place. PSA checked on 05/15/2018 showed 1.81 compared to 6.49 on 03/14/2018 when chemotherapy with Taxotere was started And concluded his chemotherapy with Taxotere e.g. 6 doses on 06/27/2018 Status post left ureteral stent placement on 05/22/2018 Again replaced on 09/21/2018 Went to [facility] on 09/07/2018,Choline C 11 scan done on 09/07/2018 showed large choline avid recurrence in the prostatectomy bed involving the posterior bladder base has improved since prior exam, however suspicious new small focus of choline avid disease along the right posterior bladder wall. New choline avid node metastatic disease including a right supraclavicular node. And increasing pulmonary infiltrate and/or atelectasis in the posterior lower lobes with reactive choline activity. so he was started on Zytiga/prednisone for one year along with an 3 monthly Zoladex. Mr Kauffman returned to the [facility] on 12/25/2018 and had choline C 11 scan done on same date showed when compared with choline scan done on 09/07/2018, increased choline uptake is seen again in the prostatectomy bed on the left and involving the posterior bladder base is essentially unchanged from the previous scan. The small lymph nodes with choline uptake seen on the previous scans are unchanged the pulmonary infiltrates have decreased. No new sites of abnormal choline uptake are noted. Clinically, patient was doing reasonably, but recently had evidence of disease progression confirmed with CT PET choline and progressive PSA. Mr Kauffman went to [facility] for follow-up and now palliative chemotherapy with cabazitaxel is recommended. Mr Kauffman had disease progression on Zytiga, which he was tolerating well but presented with progressive disease and he was also on 3 monthly Zoladex. At that point, Mr Kauffman has discontinued Xtandi and role of cabazitaxel was discussed. The current treatment plan is cabazitaxel 20 mg/m??? every 3 weeks along with Neulasta to prevent chemotherapy-induced neutropenia as patient is a high risk. The initial plan was for him to receive 4 cycles of chemotherapy as recommended by [facility] and then he will go to clinic for follow-up evaluation including scans. Mr Kauffman was advised to pursue treatment with cabazitaxel with Neulasta support. Mr. Kauffman underwent right Port-A-Cath placement in the SVC/RA junction per Dr. Caballero at [facility] on February 14, 2020. He began his first cycle on 02/21/2020. He continues with every 3-month Zoladex. His last injection was given on April 29, 2020. He is currently off of all prednisone.And completed 8 cycles of Jevtana on July 23, 2020 And follow-up CT PET scan done on September 05, 2020 showed bladder metastatic disease with predominant involvement of left ureterovesical region and local invasion into pelvis including involvement of left pubic bone and there is nodularity at right ureterovesical region with involvement of distal right ureter resulting in moderate hydronephrosis Mild uptake within the subcentimeter left para-aortic lymph node is indeterminate., Patient is being followed by Dr. Lloyd, case was discussed with Dr. Lewis at [facility], he is recommended to discontinue Jevtana and start on apalutamide along with Zoladex and also low-dose dexamethasone and may consider consultation with radiation oncology regarding involved field radiation therapy Plan: PROBLEMS ADDRESSED TODAY 1. Metastatic prostate cancer. Diagnosed May 2000: Prostate biopsy revealed [place] 3+4 = 7 adenocarcinoma the prostate. Prebiopsy PSA was 9.0. He has had retropubic radical prostatectomy in June 2000. *2010 he had recurrence with a PSA of 2.9 and a palpable nodule. He completed 37 fractions of radiation therapy to a total dose of 6660 cGy. *February 2015 he underwent cystoscopy and transurethral resection of the bladder tumor. Pathology revealed poorly differentiated appearing lesion at the bladder neck. [place] 4+5 equal 9. He then started treatment with combined androgen blockade with Zoladex and Casodex . *July 2015, his PSA was undetectable at less than 0.04. *December 2015 it was 0.17 and in September 2017 it elevated to 8.97. Bone scan was negative for metastatic disease. *October 2017 PSA was 10.60. *November 2017, his PSA was 13.2. PET choline scan reported he did have a soft tissue mass measuring 2.2 x 3.2 x 2.9 in the location of the prostate inseparable from the urinary bladder He was seen by Dr. Edwards and this felt that this for changes in the rectum are probably due to prostate invasion rather than primary rectal lesion. *December 2017, he underwent cystoscopy with transurethral resection of the bladder lesion, cystourethroscopy with placement of ureteral stent on the left side, dilatation of the urethra. 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 He then began chemotherapy with docetaxel on 02/24/2018. He completed 6 doses of docetaxel on 06/27/2018. *On follow-up choline PET/CT on September 08, 2018 he had suspicious new focus of choline avid disease along the right posterior bladder wall; new choline avid node metastatic disease including a right supraclavicular node and increasing pulmonary infiltrate and/or atelectasis in the posterior lower lobes. He then started on Zytiga and prednisone for 1 year along with every 3-month Zoladex. *Follow-up choline PET/CT in December 2018 reported increased choline uptake in the prostatectomy bed on the left and involving the posterior bladder base which was essentially unchanged from the August 2018 scan. The lymph nodes and pulmonary infiltrates had decreased and there were no new sites of abnormal choline uptake. *January 2019 he developed urosepsis requiring hospitalization IV antibiotics. At that time the Zytiga was decreased to 500 mg daily. *April 2019 the Zytiga was increased back to full dosing 1000 mg daily. *June 28, 2019 his PSA was 2.5. And follow-up choline PET/CT reported disease progression in the right posterior urinary bladder SUV maximum 2 versus 1.7 previously. There was likely metastatic activity in the proximal right iliac lymph nodes. At that time mended that he stop the Zytiga and was recommended to start Xtandi. He was also advised to wean off the prednisone at that time as well. *Follow-up in December 2019 his PSA was 6.1 and imaging demonstrated interval progression of local disease recurrence and pelvic lymphadenopathy. He did have genetic testing and was negative for BRCA 1 or 2 and no MSI was detected. 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 However at the time of that consideration he was in the hospital for urosepsis. At that time was recommended that he pursue with cabazitaxel. He began Jevtana on February 21, 2020. His PSA was 2.7 on May 09, 2020. *Follow-up C 11 PET choline scan from April 2020 reported stable to mildly improved choline avid bladder and pelvic node metastatic disease. Enlarging subcentimeters left periaortic retroperitoneal lymph nodes with low-grade choline activity, technically indeterminate for new node metastatic disease. However it was reported that may simply be reactive and related to inflammatory reaction to the left internal ureteral stent. At that time he was recommended to proceed with another 4 cycles of Jevtana then return for follow-up. *His follow-up in August 2020 included repeat choline PET/CT on September 05, 2020. It did report bladder metastatic disease with predominant involvement in the left ureterovesicular region with involvement of the distal right ureteral resulting in moderate hydronephrosis. There is also mild uptake within the subcentimeter left para-aortic lymph node which was indeterminate. At that time Dr. Lewis recommended to discontinue the Jevtana and started on apalutamide along with Zoladex and low-dose dexamethasone. Mr. Kauffman had guardian 360 done at [facility] in December 2019 and therefore was not repeated at this time. A. Proceed with apalutamide (Erleada) 240 mg daily, dexamethasone 2 mg twice daily and continue with every 3-month Zoladex. He is due for Zoladex 10.8 mg today. B. AVOID GRAPEFRUIT PRODUCTS WITH ORAL CHEMOTHERAPY/ANTIANDROGEN THERAPY C. Labs from October 14, 2020 reviewed in detail and discussed with Mr. Mrs. Kauffman a copy was given to them. WBC 10.2 hemoglobin 13.7 platelets 268,000 ANC is 6000. Potassium 4.0 creatinine 0.9 random glucose 120 LFTs are normal PSA 5.56. D. I requested that we obtain a CBC fasting lipid profile, CMP, TSH in 1 week for baseline labs. E. Mr. Kauffman is advised to take the apalutamide at the same time each day with or without food. He is to swallow tablets whole. They are not to be crushed. F. Potential side effects of the apalutamide discussed with Mr. Mrs. Kauffman and a copy of the drug information was given to them. The drug information was from up-to-date and listed adverse reactions greater than 10% as well as 1 to 10% as well as post marketing reports. The side effects listed with greater than 10% incidence included hypertension, peripheral edema, pruritus, skin rash, hot flashes, hypercholesterolemia, hyperglycemia, hyperkalemia, hypertriglyceridemia increased TSH and weight loss. Also decreased appetite, diarrhea and nausea. Anemia was listed at 70% with grade 3-4 less than 1% leukopenia 47% with grade 3-4 at less than 1% lymphocytopenia 41% with grade 3-4 at 2%. Following with 16% fatigue was 39% arthralgias 16 to 17% and brown fracture 9 to 12%. 2. Chronic pain A. He has Percocet 12/15/2024. His last prescription was June 25, 2020 at which time he received 60 tablets. 3. Follow-up plan A. I have requested weekly CBC CMP for his first cycle of apalutamide. He has had extensive chemotherapy in the past. I am concerned about high risk anemia, leukopenia. B. We will plan for follow-up in 1 month with CBC CMP TSH and fasting lipid profile. C. He will be due for Zoladex again in 3 months. D. Mr. Kauffman was instructed to contact us in interim should questions or problems arise. E. 65 minutes was spent in review of patient's records, current plan of care along with patient education of current plan including side effects of apalutamide and post visit documentation. Signed By: Yesenia Gordon-, AOCNP Tom Alcazar MD <<Signature on File>>
== END 2020-10-29 06:09 | disposition home or self-care (01) ==
LOC: ONCMED 06:11
PROVIDERS: PCP Nurse Practitioner; Visit Provider Nurse Practitioner
DX: C61 Malignant neoplasm of prostate (principal); R97.20 Elevated prostate specific antigen [PSA]; R31.0 Gross hematuria; R30.0 Dysuria; E11.9 Type 2 diabetes mellitus without complications; N13.30 Unspecified hydronephrosis; Z79.52 Long term (current) use of systemic steroids; Z79.818 Long term (current) use of other agents affecting estrogen receptors and estrogen levels
CPT/HCPCS: 96372; 96402; 99215; J9202

== ENCOUNTER 2020-11-04 11:28 | Outpatient (CLI) | payer MEDICARE, OTHER, SELFPAY ==
[2020-11-04 18:30] LABS: Basophils # 0.1 10^3/uL (0.0-0.1); Basophils % 0.4 %; Eosinophils # 0.2 10^3/uL (0.0-0.8); Hematocrit 42.1 % (42.0-52.0); Hemoglobin 13.3 g/dL (11.7-16.6); Lymphocytes % 11.9 %; Mean Corpuscular HGB Conc 31.6 g/dL (30.0-36.0); Mean Corpuscular Hemoglobin 26.9 pg (28.0-34.0); Mean Corpuscular Volume 85.2 fL (80-94); Mean Platelet Volume 9.8 fL (7.4-10.4); Monocytes # 1.7 10^3/uL (0.2-0.9); Monocytes % 9.7 %; Neutrophils # 13.03 10^3/uL (1.8-7.7); Neutrophils % 76.3 %; Nucleated Red Blood Cells % 0 %; Platelet Count 284 10^3/cmm (130-400); Red Blood Count 4.94 10^6/uL (4.1-5.3); Red Cell Distribution Width 16.7 % (12.1-15.1); White Blood Count 17.1 10^3/uL (4.0-10.0)
[2020-11-04 20:57] LABS: Alanine Aminotransferase 12 U/L (0-41); Albumin Level 3.5 g/dL (3.5-5.2); Alkaline Phosphatase 68 IU/L (40-130); Aspartate Amino Transferase 11 U/L (0-40); Blood Urea Nitrogen 26 mg/dL (8-23); Calcium 8.8 mg/dL (8.5-10.5); Carbon Dioxide 20 mmol/L (22-29); Chloride 99 mmol/L (98-107); Globulin 4.3 g/dL (1.3-4.6); Glucose 83 mg/dL (65-115); Lipase 36 U/L (13-60); Osmolality Calculated 282 mOsm/kg (285-295); Sodium 134 mmol/L (136-145); Thyroid Stimulating Hormone 1.83 uIU/mL (0.27-4.20); Total Bilirubin 0.2 mg/dL (0.15-1.2); Total Protein 7.8 g/dL (6.6-8.7)
== END 2020-11-04 11:29 | disposition home or self-care (01) ==
LOC: ONCMED 11-05 07:29
PROVIDERS: PCP Nurse Practitioner; Visit Provider Nurse Practitioner
DX: C61 Malignant neoplasm of prostate (principal); Z51.81 Encounter for therapeutic drug level monitoring; Z79.899 Other long term (current) drug therapy
CPT/HCPCS: 80053; 83690; 84443; 85025

== ENCOUNTER 2020-11-10 09:35 | Outpatient (CLI) | payer MEDICARE, OTHER, SELFPAY ==
--- NOTE | 2020-11-10 09:30 | XRR_ITS ---
PROCEDURE INFORMATION: Exam: XR Abdomen Exam date and time: 11/10/2020 9:49 AM Age: 80 years old Clinical indication: Condition or disease; Kidney or ureter condition; Other: Ureteral obstruction; Prior surgery; Surgery type: Kidney stent TECHNIQUE: Imaging protocol: XR of the abdomen. Views: Frontal supine view of the abdomen. 1 View. COMPARISON: CR XR KUB [id number] 07/03/2020 9:44 AM FINDINGS: Tubes, catheters and devices: Left-sided double-J stent is in satisfactory position. Gastrointestinal tract: Normal. No bowel dilation. Intraperitoneal space: Surgical clips are seen scattered throughout the pelvis. Bones/joints: Trace levocurvature of the lumbar spine and multilevel degenerative changes seen. Other findings: A 0.7 cm calcific density is again seen projecting over the left lower kidney shadow. XR/XR KUB [id number] IMPRESSION: 1. Left-sided double-J stent in satisfactory position. 2. Left lower kidney stone, unchanged.
== END 2020-11-10 09:36 | disposition home or self-care (01) ==
LOC: RAD 09:41
PROVIDERS: PCP Nurse Practitioner; Visit Provider Urology
DX: N13.5 Crossing vessel and stricture of ureter without hydronephrosis (principal); Z96.0 Presence of urogenital implants; N20.0 Calculus of kidney
CPT/HCPCS: 74018; 81003; 87635

== ENCOUNTER 2020-11-11 11:22 | Outpatient (CLI) | payer MEDICARE, OTHER, SELFPAY ==
[2020-11-11 15:45] LABS: Basophils # 0.1 10^3/uL (0.0-0.1); Basophils % 0.5 %; Eosinophils # 0.3 10^3/uL (0.0-0.8); Eosinophils % 2.6 %; Hematocrit 42.9 % (42.0-52.0); Lymphocytes # 1.9 10^3/uL (0.8-4.8); Lymphocytes % 19.4 %; Mean Corpuscular HGB Conc 30.3 g/dL (30.0-36.0); Mean Corpuscular Hemoglobin 26.3 pg (28.0-34.0); Mean Corpuscular Volume 86.8 fL (80-94); Mean Platelet Volume 9.8 fL (7.4-10.4); Monocytes # 0.8 10^3/uL (0.2-0.9); Monocytes % 8.2 %; Neutrophils # 6.78 10^3/uL (1.8-7.7); Neutrophils % 68.9 %; Nucleated Red Blood Cells % 0 %; Platelet Count 256 10^3/cmm (130-400); Red Blood Count 4.94 10^6/uL (4.1-5.3); Red Cell Distribution Width 16.5 % (12.1-15.1); White Blood Count 9.9 10^3/uL (4.0-10.0)
[2020-11-11 16:27] LABS: Alanine Aminotransferase 11 U/L (0-41); Albumin Level 3.3 g/dL (3.5-5.2); Alkaline Phosphatase 64 IU/L (40-130); Blood Urea Nitrogen 25 mg/dL (8-23); Carbon Dioxide 23 mmol/L (22-29); Chloride 103 mmol/L (98-107); Globulin 4.4 g/dL (1.3-4.6); Glucose 98 mg/dL (65-115); Osmolality Calculated 292 mOsm/kg (285-295); Sodium 139 mmol/L (136-145); Total Bilirubin 0.2 mg/dL (0.15-1.2); Total Protein 7.7 g/dL (6.6-8.7)
[2020-11-11 16:28] LABS: Anion Gap 17.1 (5-19); Potassium 4.1 mmol/L (3.5-5.1)
[2020-11-11 16:29] LABS: Aspartate Amino Transferase 13 U/L (0-40)
== END 2020-11-11 11:23 | disposition home or self-care (01) ==
LOC: ONCMED 11-13 09:18
PROVIDERS: PCP Nurse Practitioner; Visit Provider Nurse Practitioner
DX: C61 Malignant neoplasm of prostate (principal); Z51.81 Encounter for therapeutic drug level monitoring; Z79.899 Other long term (current) drug therapy
CPT/HCPCS: 80053; 84153; 84443; 85025

== ENCOUNTER 2020-11-13 12:25 | Day surgery (SDC) | payer MEDICARE, OTHER, SELFPAY ==
[2020-11-12 15:45] VITALS: BMI 33.7
[2020-11-13] VITALS (7 sets, daily range): BP systolic 99–146; BP diastolic 65–83; PULSE 70–76; RESP 12–18; TEMP 36.1–36.6; O2SAT 94–98
--- NOTE | 2020-11-13 | SCC_ITS ---
Procedure Done: 1. Cystoscopy with left ureteral stent removal 2. Left ureteral stent replacement. 26.0 seconds of fluoroscopic guidance, for a cumulative dose of 9.5 mGy, was provided to Dr. Lloyd by the radiology department. C-arm images of the abdomen were saved for the patient's permanent record. [facility]
--- NOTE | 2020-11-13 12:42 | SC_ITS ---
WS: [id number] C-arm fluoroscopy in the OR for ureteral catheter exchange, 11/13/2020 Clinical Data: Due for ureteral stent change Comparison: KUB, 11/10/2020. Findings: The left ureteral catheter has been exchanged. The proximal portion is curled within the left renal p daniel. The distal portions within the bladder. SC/C-arm FL for Urology Impression: Exchange of left ureteral catheter.
[2020-11-13] MEDS: sodium chloride 0.9% 1,000 ML 30 ML IV (12:55)
[2020-11-13 12:56] LABS: Glucose Point of Care 102 mg/dL (70-110)
--- NOTE | 2020-11-13 13:01 | PM.OP ---
Operative Report Date of procedure: November 13, 2020 Pre-op Diagnosis: Chronic LEFT ureteral obstruction with indwelling ureteral stent Post-op diagnosis: same Procedure Done: 1. Cystoscopy with left ureteral stent removal 2. Left ureteral stent replacement. Implants: 8.5 Tongan by 26 cm double-pigtail stent left indwelling without string Pathology: none sent Surgeon: Prema Anesthesia: General Estimated blood loss: Minimal Urine output: Not measured Complications: None Findings: Stent change without difficulty; position confirmed with fluoroscopy and cystoscopy. Condition: stable Disposition: PACU Brief History: Mr. Kauffman is a delightful 80-year-old white male with locally recurrent and invasive prostate cancer showing signs of progression over time following remote radical retropubic prostatectomy, adjuvant radiation etc. Has been also assessed at the [facility]. Ultimately the decision was made to leave an indwelling stent for ureteral obstruction distally on the left secondary to invasive prostate cancer. He has a stent changed about every 3 to 4 months. Also has recurrent UTIs. Recent KUB in the clinic showed no obvious encrustation and he is admitted now for routine scheduled left ureteral stent exchange. Procedure: After routine preoperative evaluation examination and obtaining of informed consent he was taken to the operating suite on 11/13/2020 where general anesthesia was administered without difficulty after appropriate timeout was performed, SCDs confirmed to be functioning, preoperative antibiotics administered, beta-kofi protocol confirmed. Prepped and draped in usual sterile fashion in dorsal lithotomy position paying careful attention to avoiding pressure points. 21 Tongan cystoscope with 30 degree lens was introduced into the urethra meatus and advanced into the bladder under videoscopy. The stent was identified and's expected position. The degree of inflammatory/necrotic tissue at the orifice was increased from previous exams. It was difficult to actually get a good visualization of the orifice itself because of the fixation and necrosis. For that reason it was decided to pass a wire through the stent. The distal aspect of the stent was then grasped with grasping forceps and withdrawn to the urethral meatus with fluoroscopic monitoring of the proximal curl to make sure that it was still well above the obstruction area. A wire was easily advanced up the stent into the area of the upper pole calyx and then the stent was removed. The cystoscope was then backloaded over the guidewire and a 8.5 Tongan by 26 cm double-pigtail stent was advanced over the guidewire through the cystoscope into appropriate position as confirmed via fluoroscopy and cystoscopy stent was confirmed to be draining. No string The bladder was drained via the cystoscope and the procedure was then completed. He tolerated the procedure well without complications and then was transferred to the PACU in stable condition. PLANS: 1. Follow-up in about 4 months with a KUB
[2020-11-13] MEDS: levofloxacin-dextrose 5 % 500 MG/100 ML PREMIX 100 MG IV (13:29)
--- NOTE | 2020-11-13 13:30 | ANES.PREANE2 ---
Pre-Anesthetic Assessment Pre-Anesthetic Assessment: Height/Weight: Height 1.68 m Weight 94.801 kg Temp Pulse Resp BP Pulse Ox 97.0 F L 75 18 99/71 97 11/13/20 12:45 11/13/20 12:45 11/13/20 12:45 11/13/20 12:45 11/13/20 12:45 Preop Diagnosis: Chronic LEFT ureteral obstruction with indwelling ureteral stent Proposed Procedure: Operation Date: 11/13/20 16:05 Proposed Procedures p Cystoscopy 40493 N13.5(Not Applicable) - Jasper Lloyd MD s Ureteral Stent Exchange(Left) - Jasper Lloyd MD Was Beta Jasmine taken within 24 hours: N/A Was Clonidine taken within 24 hours: N/A Last intake: Intake Last Liquid Date 11/13/20 Last Liquid Time 08:00 Last Solid Date 11/12/20 Last Solid Time 23:00 Social: Social History: No alcohol and No tobacco Exam: Pre-Anes Outpt Exam: alert, oriented x 3, clear to auscultation bilaterally and regular rate & rhythm Airway: Submandibular: WNL Cervical ROM: WNL MP: 2 Dentition: False Metabolic: Metabolic: DM and Morbid obesity Anesthetic Plan: ASA status: 3 Anesthesia: General Risk of > 500 ml blood loss (7ml/kg in children): No Meds/Allergies Current Medications: Current Medications Generic Name Dose Route Start Last Admin Trade Name Freq PRN Reason Stop Dose Admin Sodium Chloride 1,000 mls @ 30 ml s/hr 11/13/20 12:45 11/13/20 12:55 Sodium Chloride 0.9% IV 11/14/20 12:44 30 mls/hr .Q24H EBER Administration PFSH Anesthesia PFSH: Medical History Chronic cystitis Extrinsic ureteral obstruction Male stress incontinence Prostate cancer Surgical History History of radical retropubic prostatectomy Hx of transurethral destruction of bladder lesion S/P right knee surgery Status post placement of ureteral stent Family History Mother , in her 70's CAD (coronary artery disease) Father , in his 80's No problems noted. Social History Smoking and tobacco status: never smoked Alcohol intake: never Adopted: No Caregiver/support person: No Lives independently: No Household members: spouse Marital status: Current occupational status: retired History of recent travel: No Data Anesthesia Other Labs: Laboratory Results - last 48 hr 11/13/20 12:53 POC Glucose 102 Cardiac Studies: No Data to Display
--- NOTE | 2020-11-13 14:02 | P.PCN_ITS ---
PACU note PACU note: VSS, Good respiratory effort, report to EDITORIAL ASSISTANT Post-Anesthesia Exam: awake
--- NOTE | 2020-11-13 14:02 | PM.PACU ---
PACU note PACU note: VSS, Good respiratory effort, report to VITAMIN MANAGER Post-Anesthesia Exam: awake
--- NOTE | 2020-11-13 18:09 | ANE.PACU2 ---
Inpatient post-anesthesia follow up: Airway intact: Yes Vital signs: Temperature 97.7 F Pulse Rate 70 Respiratory Rate 16 Blood Pressure 146/65 Pulse Oximetry 98 Oxygen Delivery Me thod Room Air Oxygen Flow Rate Fraction of Inspir ed Oxygen Hydration adequate: Yes Nausea and vomiting: No Pain level: 2 Mental status: Baseline
--- NOTE | 2020-11-14 16:39 | W.PM.OPSUD ---
Surgery/Procedure H&P Update DATE OF PROCEDURE: November 13, 2020 DATE H&P PERFORMED: 11/10/20 H&P UPDATE INFORMATION: I have reviewed H&P completed within last 30 days, I have examined patient prior to procedure, No changes to prior documentation and H&P is in [facility] EMR on date indicated PREOP DIAGNOSIS: Chronic LEFT ureteral obstruction with indwelling ureteral stent PLANNED PROCEDURE: Operation Date: 11/13/20 16:05 Proposed Procedures p Cystoscopy 87838 N13.5(Not Applicable) - Jasper Lloyd MD s Ureteral Stent Exchange(Left) - Jasper Lloyd MD
== END 2020-11-13 15:10 | disposition home or self-care (01) ==
PROVIDERS: PCP Nurse Practitioner; Visit Provider Urology
PROC: 0TJB8ZZ Inspection of Bladder, Via Natural or Artificial Opening Endoscopic (ICD-10-PCS; CPT 52000; principal; 2020-11-13 15:45)
PROC: (CPT 52332; 2020-11-13 15:45)
DX: N13.5 Crossing vessel and stricture of ureter without hydronephrosis (principal); C61 Malignant neoplasm of prostate; E11.9 Type 2 diabetes mellitus without complications; E66.01 Morbid (severe) obesity due to excess calories; Z68.33 Body mass index [BMI] 33.0-33.9, adult
CPT/HCPCS: 52332; 36416; 76000; 82962; 96365; C2625; J1956; J2704; J3010; J7030

== ENCOUNTER 2020-11-19 09:13 | Outpatient (CLI) | payer MEDICARE, OTHER, SELFPAY ==
[2020-11-18 19:07] LABS: Basophils % 0.4 %; Eosinophils # 0.2 10^3/uL (0.0-0.8); Eosinophils % 2.5 %; Hematocrit 42.7 % (42.0-52.0); Hemoglobin 12.8 g/dL (11.7-16.6); Lymphocytes # 2.4 10^3/uL (0.8-4.8); Lymphocytes % 29.7 %; Mean Corpuscular Hemoglobin 26.4 pg (28.0-34.0); Mean Corpuscular Volume 88.2 fL (80-94); Mean Platelet Volume 10.1 fL (7.4-10.4); Monocytes # 0.6 10^3/uL (0.2-0.9); Monocytes % 7.3 %; Neutrophils # 4.74 10^3/uL (1.8-7.7); Neutrophils % 59.8 %; Nucleated Red Blood Cells % 0 %; Platelet Count 247 10^3/cmm (130-400); Red Blood Count 4.84 10^6/uL (4.1-5.3); Red Cell Distribution Width 16.6 % (12.1-15.1); White Blood Count 7.9 10^3/uL (4.0-10.0)
[2020-11-18 19:26] LABS: Alanine Aminotransferase 8 U/L (0-41); Albumin Level 3.7 g/dL (3.5-5.2); Alkaline Phosphatase 60 IU/L (40-130); Aspartate Amino Transferase 10 U/L (0-40); Blood Urea Nitrogen 24 mg/dL (8-23); Calcium 9.2 mg/dL (8.5-10.5); Carbon Dioxide 25 mmol/L (22-29); Chloride 103 mmol/L (98-107); Globulin 3.6 g/dL (1.3-4.6); Glucose 75 mg/dL (65-115); Osmolality Calculated 295 mOsm/kg (285-295); Sodium 141 mmol/L (136-145); Total Bilirubin 0.2 mg/dL (0.15-1.2); Total Protein 7.3 g/dL (6.6-8.7)
== END 2020-11-19 09:14 | disposition home or self-care (01) ==
LOC: ONCMED 09:14
PROVIDERS: PCP Nurse Practitioner; Visit Provider Nurse Practitioner
DX: C61 Malignant neoplasm of prostate (principal); Z51.81 Encounter for therapeutic drug level monitoring; Z79.899 Other long term (current) drug therapy
CPT/HCPCS: 80053; 85025

== ENCOUNTER 2020-11-25 07:20 | Outpatient (CLI) | payer MEDICARE, OTHER, SELFPAY ==
[2020-11-25 18:55] LABS: Basophils # 0.1 10^3/uL (0.0-0.1); Basophils % 0.8 %; Eosinophils # 0.3 10^3/uL (0.0-0.8); Eosinophils % 4.6 %; Hematocrit 40.3 % (42.0-52.0); Hemoglobin 12.5 g/dL (11.7-16.6); Lymphocytes # 1.6 10^3/uL (0.8-4.8); Mean Corpuscular Hemoglobin 26.5 pg (28.0-34.0); Mean Corpuscular Volume 85.6 fL (80-94); Mean Platelet Volume 9.9 fL (7.4-10.4); Monocytes # 0.8 10^3/uL (0.2-0.9); Monocytes % 12.1 %; Neutrophils # 3.72 10^3/uL (1.8-7.7); Nucleated Red Blood Cells % 0 %; Platelet Count 218 10^3/cmm (130-400); Red Blood Count 4.71 10^6/uL (4.1-5.3); Red Cell Distribution Width 16.8 % (12.1-15.1); White Blood Count 6.5 10^3/uL (4.0-10.0)
[2020-11-25 19:45] LABS: Alanine Aminotransferase 9 U/L (0-41); Albumin Level 3.4 g/dL (3.5-5.2); Alkaline Phosphatase 47 IU/L (40-130); Anion Gap 15.8 (5-19); Aspartate Amino Transferase 11 U/L (0-40); Blood Urea Nitrogen 18 mg/dL (8-23); Calcium 8.3 mg/dL (8.5-10.5); Carbon Dioxide 23 mmol/L (22-29); Chloride 104 mmol/L (98-107); Chol HDL Ratio 5.65 mg/dL (1.0-5.00); Cholesterol 192 mg/dL (0-200); Globulin 3.2 g/dL (1.3-4.6); Glucose 96 mg/dL (65-115); HDL Cholesterol 34 mg/dL (60-100); LDL Cholesterol Calculated 137 mg/dL (50-129); LDL HDL Ratio 4.03 RATIO (0.00-3.22); Osmolality Calculated 290 mOsm/kg (285-295); Potassium 3.8 mmol/L (3.5-5.1); Sodium 139 mmol/L (136-145); Thyroid Stimulating Hormone 2.69 uIU/mL (0.27-4.20); Total Bilirubin 0.2 mg/dL (0.15-1.2); Total Protein 6.6 g/dL (6.6-8.7); Triglycerides 107 mg/dL (0-150)
== END 2020-11-25 07:21 | disposition home or self-care (01) ==
LOC: ONCMED 11-26 11:34
PROVIDERS: PCP Nurse Practitioner; Visit Provider Nurse Practitioner
DX: Z51.81 Encounter for therapeutic drug level monitoring (principal)
CPT/HCPCS: 80053; 80061; 84443; 85025

== ENCOUNTER 2020-11-26 06:41 | Outpatient (CLI) | payer MEDICARE, OTHER, SELFPAY ==
--- NOTE | 2020-11-27 17:26 | ONC FU_ITS ---
Dr. Alcazar follow up note Patient: Alex Kauffman Unit #: [id number]: 1940 Dicatated By: Tom Alcazar M.D.Date of Visit:Nov 26, 2020 Onc Med Follow-up/Prog Note History of Present Illness: Mr. Kauffman is a 80-year-old gentleman with long-standing history of prostate cancer. Initially, he was diagnosed with prostate cancer in May 2000. At that time, his PSA was 9 and a biopsy showed 2+ 2/3+4/3+3 with the largest volume equal 3+4. Underwent radical retropubic prostatectomy in June 2000. He was followed with PSA postoperatively and during follow-up it was noted his PSA was increasing but slowly. Finally in 2010 it was felt he needed further treatment. He was treated with radiation therapy which he completed in March 2011. It showed good response with PSA down to 0.05. During follow-up in November 2012, his PSA gone up to 0.21; in May 2013 up to 0.35 and in November 2013 it was 0.93. In February 2015, he underwent cystoscopic examination found to have local recurrence. It was resected and confirmed to be poorly differentiated prostate cancer. At that time he was started on combined androgen blockade postop. His treatment was complicated by recurrent hematuria and burning micturition. Follow-up lab showed a gradual increase in his PSA level and from 07/06/2017 it was 2.5 earlier while on combined androgen blockade. On 12/21/2017, he underwent cystoscopy with transurethral resection of a bladder lesion, cystourethroscopy with placement of ureteral stent on left side and dilation of urethra. 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 Mr Kauffman has had persistent urine tract infection and recently finished course of Levaquin. Repeat urinalysis on 02/16/2018 showed persistent urine tract infection: leukoesterase positive and persistent RBCs and WBCs on microscopic evaluation. Mr Kauffman reported he did notice pus drops every time after he finish his urination. His case was discussed with Dr. Lloyd, urologist, and he was referred for possible cystoscopy to rule out postsurgical abscess or other source of infection- before we started chemotherapy. Mr Kauffman reported that he has seen Dr. Lloyd. Dr Lloyd replaced the urinary stent and did notice lots of urinary debris. Mr Kauffman was started on long-term antibiotics with Hiprex 1 g by mouth daily. He began his first dose of docetaxel on 03/14/2018. He was not given Neulasta as he did not have insurance approval at the time of chemotherapy. He did have significant neutropenia on day 8 with an ANC of 600. He did not have symptoms and gradually recovered. He did qualify for Neulasta administration with cycle 2 and Concluded his chemotherapy e.g. 6 doses on 06/27/2018 He went to [facility] on 09/07/2018 and as per patient and his , patient was started on Zytiga/prednisone for one year in addition to Zoladex every 3 months as scans done at [facility] showed excellent response to chemotherapy but persistent lung nodule and pelvic lesion and his PSA done there was around 1. We will obtain follow-up note from [facility] and review. On 09/21/2018 patient had left ureteral stent replacement. Mr Kauffman went to [facility] for follow-up on 12/25/2018 and had choline C 11 scan done, when compared with one from 09/07/2018, showed increased choline uptake is again seen in the prostatectomy bed on the left and involving the posterior bladder base is essentially unchanged from the previous scan. The small lymph nodes with choline uptake seen on the previous scan are unchanged. The pulmonary infiltrate have decreased. No new sites of abnormal choline uptake are noted. He was Tolerating ADT with Zoladex and Zytiga/prednisone well. He went to [facility] for follow-up on 06/29/2019. He underwent PET/CT choline which showed likely tumor at the left of urethral vesicle junction has SUV of 4.5 compared to 3.4 on 12/25/2018. Nonspecific activity to the right of urethrovesical junction has SUV of 1.8 compared to 2.1 previously. Likely tumor involving left sided urinary bladder including the left ureterovesical junction has SUV of 6.2 compared to 6.6 previously. Likely metastatic activity in the proximal right external iliac lymph node has SUV of 2.6 versus 2.2 previously. Nonspecific activity along the right common iliac vessels and adjacent to lumbar degenerative changes as current SUV of 2.9 versus 2.1 previously and his PSA was 2.5. based on these findings, Dr. Lewis recommended continue with Zoladex but discontinue Zytiga and taper off prednisone. Initiate xtandi and underwent follow-up CT PET on December 27, 2019 at [facility] which showed disease progression when compared with scan done on June 28, 2019 and showed malignant appearing choline activity along the urinary bladder oneal has increased,, prominent disease in the left UVJ region has current SUV of 9.7 versus 6.2 on June 2019. Metastatic appearing nodularity in the fat to the right of the urinary bladder anteriorly has increased. Approximate 1.7 x 1.3 cm right external iliac node measuring 0.7 x 0.5 cm on June 28, 2019 and now with SUV of 6 compared to 2.6 at that time. A likely metastatic right common iliac node now measures 1.8 x 1.2 cm versus 1 x 0.7 cm on June 28, 2019. Multiple nodes in the thorax shows interval increase activity compared to June 28, 2019, these are nonspecific could be due to granulomatous inflammation. As far as his left pelvic pain is concern, which is under control and left nephrostomy tube was suggested rather than continuing with ureteral stent exchanges every couple of months. Mr Kauffman was seen by Dr. Lewis and MSI/BRCA 1 and 2 were checked and both came back negative- so no role of immunotherapy with pembrolizumab and olaparib. Clinical trial was also considered but considering patient's age and overall condition, further chemotherapy with cabazitaxel was recommended and patient agreed. And he was advised to continue Xtandi until cabazitaxel is planned. Mr Kauffman began his first cycle of cabazitaxel on February 21, 2020. His Zoladex was last given on 01/28/2020. Mr Kauffman underwent choline CT PET scan after 4 doses of Jevtana at [facility] which was done on May 09, 2020 showed stable to mildly improved choline avid bladder and pelvic node metastatic disease. Enlarging subcentimeter left periaortic retroperitoneal nodes with low-grade colon activity, technically indeterminate for new nodes metastatic disease., Could be reactive. Patient was evaluated by on May 13, 2020 and his recommendations were to continue with Jevtana for 4 more cycles and then repeat: CT PET scan and also continue with 3 monthly Zoladex. And continue left ureteral stent exchanges locally. He continues with treatment.Patient completed total 8 cycles of Jevtana on July 23, 2020 And Followup Choline PET/CT scan on September 05, 2020 reported bladdrmetastatic disease with predominant involvement of left ureterovesical region and local invasion into pelvis including involvement of left pubic bone. The nodularity at right ureterovesical region with involvement of distal right ureter resulting in moderate right hydronephrosis, which may be new; Mild uptake within the subcentimeter left para-aortic node is indeterminate; Uptake within mediastinal and bilateral hilar nodes is nonspecific Mr Kauffman is being followed by Dr. 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 He is scheduled see Dr. Lloyd on November 08, 2019 for possible left ureteral stent change. His prostate cancer was discussed with Dr. Lewis at [facility] in [facility]. Dr Lewis has recommended apalutamide or darolutamide while continuing with Zoladex and also consider low-dose dexamethasone. Came for follow-up, denies any specific complaints, no nausea or vomiting, no diarrhea or constipation, no dysuria or hematuria, now has been taking apalutamide for almost a month and tolerating well along with dexamethasone/Zoladex Medications: AZO Yeast Plus 1 Tablet Oral daily PRN, Hiprex 1 Tablet (of 1 G) Oral b.i.d., MetFORMIN HCl 1 Tablet (of 500 mg) Oral daily, oxyCODONE-Acetaminophen 1 Tablet (of 5-325 mg) Oral q 4 to 6 hours PRN, Vitamin C 1 Tablet (of 1 G) Oral daily Allergies: Cipro, Penicillins, and Sulfa Antibiotics. Review of Systems: Review of Systems is not available for this patient. Vital Signs: Vitals are not available for this patient. Performance Status: 1 - No physically strenuous activity, but ambulatory and able to carry out light or sedentary work (e.g. office work, light house work). (ECOG) Physical Examination: ENMT - No mouth sores, no thrush, no jaundice, Respiratory - Lungs are clear to auscultation, Cardiovascular - Regular rate and rhythm of heart, Abdomen - Soft, bowel sounds present, Extremities - No visible edema. Lab/Imaging: Test performed on Nov 25, 2020 12:17 Cholesterol, Total 192 mg/dL Sodium 139 mmol/L TSH 2.69 uIU/mL Potassium 3.8 mmol/L Triglycerides 107 mg/dL Chloride 104 mmol/L LDL Cholesterol 137 mg/dL CO2 23 mmol/L Anion Gap 15.8 HDL Cholesterol 34 mg/dL BUN 18 mg/dL Cholesterol/HDL Ratio 5.65 mg/dL Creatinine 0.8 mg/dL LDL / HDL Ratio 4.03 RATIO Cr Clearance (Est) 103.1800 mL/min Glucose 96 mg/dL Osmolality - Calculated 290 mOsm/kg Calcium 8.3 mg/dL Protein, Total 6.6 g/dL Albumin 3.4 g/dL Globulin 3.2 g/dL Bilirubin, Total 0.2 mg/dL ALT (SGPT) 9 U/L AST (SGOT) 11 U/L Alkaline Phosphatase 47 IU/L WBC 6.5 10 3/uL RBC 4.71 10 6/uL HGB 12.5 g/dL HCT 40.3 % MCV 85.6 fL MCH 26.5 pg MCHC 31.0 g/dL RDW 16.8 % Platelet Count 218 10 3/cmm MPV 9.9 fL Neutrophils 3.72 10 3/uL Lymphocytes 1.6 10 3/uL Monocytes 0.8 10 3/uL Eosinophils 0.3 10 3/uL Basophils 0.1 10 3/uL Neutrophil % 57.0 % Lymphocyte % 25.0 % Monocyte % 12.1 % Eosinophil % 4.6 % Basophils % 0.8 % NRBC % 0 % Test performed on Sep 18, 2020 14:50 PSA 3.60 ng/mL Test performed on Aug 13, 2020 09:01 Magnesium 1.8 mg/dL Impression: Recurrent prostate cancer status post cystoscopy and excision in February 2015 followed by combined androgen blockade with Zoladex and Casodex. with gradual increasing PSA while on combined androgen blockade Initially he was diagnosed prostate cancer in 1999- at that time he underwent retropubic radical prostatectomy. Status post radiation therapy in 2010 for increasing PSA and lymphadenopathy. Hematuria/dysuria since February 2015. CT scan of abdomen pelvis done on 03/02/2018 showed soft tissue mass measuring 2.2 cm x 3.2 x 2.9 in the expected location of the prostate inseparable from the urinary bladder floor urinary bladder wall is diffusely thickened and there is a soft tissue attenuation between the soft tissue mass in the anterior infra levator rectal wall, rectal lesion not excluded Seen by Dr. Edwards on 10/24/2017 and his impression was changes in the rectum are probably due to prostate invasion rather than primary rectal lesion. 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 His symptoms resolved and he began recommended chemotherapy with docetaxel on 03/14/2018. Mr. Kauffman has tolerated the chemotherapy relatively well. He did have chemotherapy-induced neutropenia on day 8 of cycle 1. His initial ANC at time of treatment on 03/14/2018 was 13,300 on day 8 his ANC was [address] CT PET scan done on 05/06/2018 showed no evidence for recurrent or residual malignancy., Tiny scattered pelvic nodes are radiographically benign and FDG negative, no findings to indicate osseous metastatic disease and left-sided hydronephrosis is present and a ureteral catheter is in place. PSA checked on 05/15/2018 showed 1.81 compared to 6.49 on 03/14/2018 when chemotherapy with Taxotere was started And concluded his chemotherapy with Taxotere e.g. 6 doses on 06/27/2018 Status post left ureteral stent placement on 05/22/2018 Again replaced on 09/21/2018 Went to [facility] on 09/07/2018,Choline C 11 scan done on 09/07/2018 showed large choline avid recurrence in the prostatectomy bed involving the posterior bladder base has improved since prior exam, however suspicious new small focus of choline avid disease along the right posterior bladder wall. New choline avid node metastatic disease including a right supraclavicular node. And increasing pulmonary infiltrate and/or atelectasis in the posterior lower lobes with reactive choline activity. so he was started on Zytiga/prednisone for one year along with an 3 monthly Zoladex. Mr Kauffman returned to the [facility] on 12/25/2018 and had choline C 11 scan done on same date showed when compared with choline scan done on 09/07/2018, increased choline uptake is seen again in the prostatectomy bed on the left and involving the posterior bladder base is essentially unchanged from the previous scan. The small lymph nodes with choline uptake seen on the previous scans are unchanged the pulmonary infiltrates have decreased. No new sites of abnormal choline uptake are noted. Clinically, patient was doing reasonably, but recently had evidence of disease progression confirmed with CT PET choline and progressive PSA. Mr aKuffman went to [facility] for follow-up and now palliative chemotherapy with cabazitaxel is recommended. Mr Kauffman had disease progression on Zytiga, which he was tolerating well but presented with progressive disease and he was also on 3 monthly Zoladex. At that point, Mr Kauffman has discontinued Xtandi and role of cabazitaxel was discussed. The current treatment plan is cabazitaxel 20 mg/m??? every 3 weeks along with Neulasta to prevent chemotherapy-induced neutropenia as patient is a high risk. The initial plan was for him to receive 4 cycles of chemotherapy as recommended by [facility] and then he will go to clinic for follow-up evaluation including scans. Mr Kauffman was advised to pursue treatment with cabazitaxel with Neulasta support. Mr. Kauffman underwent right Port-A-Cath placement in the SVC/RA junction per Dr. Caballero at [facility] on February 14, 2020. He began his first cycle on 02/21/2020. He continues with every 3-month Zoladex. His last injection was given on April 29, 2020. He is currently off of all prednisone.And completed 8 cycles of Jevtana on July 23, 2020 And follow-up CT PET scan done on September 05, 2020 showed bladder metastatic disease with predominant involvement of left ureterovesical region and local invasion into pelvis including involvement of left pubic bone and there is nodularity at right ureterovesical region with involvement of distal right ureter resulting in moderate hydronephrosis Mild uptake within the subcentimeter left para-aortic lymph node is indeterminate., Patient is being followed by Dr. Lloyd, case was discussed with Dr. Lewis at [facility], he is recommended to discontinue Jevtana and start on apalutamide along with Zoladex and also low-dose dexamethasone and may consider consultation with radiation oncology regarding involved field radiation therapy Plan: Discussed with patient regarding labs from November 18, 2020 white blood count 7.9 hemoglobin 12.8 hematocrit 42.7 platelets 247 CMP within normal limits, his PSA on November 11, 2020 was 6.67 compared to 5.56 on October 14, 2020 Clinically, patient is doing well with no new signs symptom suggestive of disease progression, patient was started on apalutamide as recommended by Dr. Lewis, patient has been taking apalutamide for a month now, without any problem. So we will continue this along with dexamethasone and 3 monthly Zoladex. Patient will return to clinic in 2 months with CBC CMP and PSA Patient had guardant 360 done in December 2019 and in the presence of disease progression, repeat guardant 360 was recommended but patient is concerned about insurance coverage, we will obtain approval from insurance prior to ordering guardant 360 to identify targetable therapeutic mutations Signed By: Tom Alcazar M.D. <<Signature on File>>
== END 2020-11-26 06:42 | disposition home or self-care (01) ==
LOC: ONCMED 06:52
PROVIDERS: PCP Nurse Practitioner; Visit Provider Internal Medicine Hematology & Oncology
DX: C61 Malignant neoplasm of prostate (principal); C79.11 Secondary malignant neoplasm of bladder; N02.9 Recurrent and persistent hematuria with unspecified morphologic changes; R30.0 Dysuria; N39.0 Urinary tract infection, site not specified; Z79.52 Long term (current) use of systemic steroids; Z79.818 Long term (current) use of other agents affecting estrogen receptors and estrogen levels
CPT/HCPCS: 99214

== ENCOUNTER 2021-01-02 10:45 | Outpatient (CLI) | payer MEDICARE, OTHER, SELFPAY | END 2021-01-02 10:46 | disposition home or self-care (01) | LOC: ONCMED 10:48 | PROVIDERS: PCP Nurse Practitioner; Visit Provider Nurse Practitioner | DX: C61 Malignant neoplasm of prostate (principal); R97.20 Elevated prostate specific antigen [PSA]; Z79.899 Other long term (current) drug therapy | CPT/HCPCS: 36591; 84153 ==

== ENCOUNTER 2021-01-27 09:04 | Outpatient (CLI) | payer MEDICARE, OTHER, SELFPAY ==
[2021-01-27 09:51] LABS: Basophils # 0.1 10^3/uL (0.0-0.1); Basophils % 0.4 %; Eosinophils # 0.2 10^3/uL (0.0-0.8); Eosinophils % 1.4 %; Hematocrit 36.5 % (42.0-52.0); Hemoglobin 11.4 g/dL (11.7-16.6); Lymphocytes # 1.5 10^3/uL (0.8-4.8); Mean Corpuscular HGB Conc 31.2 g/dL (30.0-36.0); Mean Corpuscular Hemoglobin 26.6 pg (28.0-34.0); Mean Corpuscular Volume 85.3 fL (80-94); Mean Platelet Volume 9.6 fL (7.4-10.4); Monocytes # 1.3 10^3/uL (0.2-0.9); Monocytes % 10.7 %; Neutrophils # 8.77 10^3/uL (1.8-7.7); Neutrophils % 74.2 %; Nucleated Red Blood Cells % 0 %; Platelet Count 308 10^3/cmm (130-400); Red Blood Count 4.28 10^6/uL (4.1-5.3); White Blood Count 11.8 10^3/uL (4.0-10.0)
[2021-01-27 10:38] LABS: Alanine Aminotransferase 7 U/L (0-41); Albumin Level 3.4 g/dL (3.5-5.2); Alkaline Phosphatase 49 IU/L (40-130); Anion Gap 17.9 (5-19); Aspartate Amino Transferase 11 U/L (0-40); Blood Urea Nitrogen 30 mg/dL (8-23); Calcium 8.3 mg/dL (8.5-10.5); Carbon Dioxide 19 mmol/L (22-29); Chloride 104 mmol/L (98-107); Globulin 3.7 g/dL (1.3-4.6); Glucose 142 mg/dL (65-115); Osmolality Calculated 293 mOsm/kg (285-295); Potassium 3.9 mmol/L (3.5-5.1); Sodium 137 mmol/L (136-145); Total Bilirubin 0.3 mg/dL (0.15-1.2); Total Protein 7.1 g/dL (6.6-8.7)
[2021-01-27] MEDS: lidocaine 1% INJ 20 mL INJECTION (11:38)
[2021-01-27] MEDS: goserelin acetate 10.8 mg Implant SUBCUT (11:48)
--- NOTE | 2021-01-27 12:59 | ONC FU_ITS ---
Dr. Alcazar follow up note Patient: Alex Kauffman Unit #: [id number]: 1940 Dicatated By: Tom Alcazar M.D.Date of Visit:Jan 27, 2021 Onc Med Follow-up/Prog Note History of Present Illness: Mr. Kauffman is a 80-year-old gentleman with long-standing history of prostate cancer. Initially, he was diagnosed with prostate cancer in May 2000. At that time, his PSA was 9 and a biopsy showed 2+ 2/3+4/3+3 with the largest volume equal 3+4. Underwent radical retropubic prostatectomy in June 2000. He was followed with PSA postoperatively and during follow-up it was noted his PSA was increasing but slowly. Finally in 2010 it was felt he needed further treatment. He was treated with radiation therapy which he completed in March 2011. It showed good response with PSA down to 0.05. During follow-up in November 2012, his PSA gone up to 0.21; in May 2013 up to 0.35 and in November 2013 it was 0.93. In February 2015, he underwent cystoscopic examination found to have local recurrence. It was resected and confirmed to be poorly differentiated prostate cancer. At that time he was started on combined androgen blockade postop. His treatment was complicated by recurrent hematuria and burning micturition. Follow-up lab showed a gradual increase in his PSA level and from 07/06/2017 it was 2.5 earlier while on combined androgen blockade. On 12/21/2017, he underwent cystoscopy with transurethral resection of a bladder lesion, cystourethroscopy with placement of ureteral stent on left side and dilation of urethra. 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 Mr Kauffman has had persistent urine tract infection and recently finished course of Levaquin. Repeat urinalysis on 02/16/2018 showed persistent urine tract infection: leukoesterase positive and persistent RBCs and WBCs on microscopic evaluation. Mr Kauffman reported he did notice pus drops every time after he finish his urination. His case was discussed with Dr. Lloyd, urologist, and he was referred for possible cystoscopy to rule out postsurgical abscess or other source of infection- before we started chemotherapy. Mr Kauffman reported that he has seen Dr. Lloyd. Dr Lloyd replaced the urinary stent and did notice lots of urinary debris. Mr Kauffman was started on long-term antibiotics with Hiprex 1 g by mouth daily. He began his first dose of docetaxel on 03/14/2018. He was not given Neulasta as he did not have insurance approval at the time of chemotherapy. He did have significant neutropenia on day 8 with an ANC of 600. He did not have symptoms and gradually recovered. He did qualify for Neulasta administration with cycle 2 and Concluded his chemotherapy e.g. 6 doses on 06/27/2018 He went to [facility] on 09/07/2018 and as per patient and his , patient was started on Zytiga/prednisone for one year in addition to Zoladex every 3 months as scans done at [facility] showed excellent response to chemotherapy but persistent lung nodule and pelvic lesion and his PSA done there was around 1. We will obtain follow-up note from [facility] and review. On 09/21/2018 patient had left ureteral stent replacement. Mr Kauffman went to [facility] for follow-up on 12/25/2018 and had choline C 11 scan done, when compared with one from 09/07/2018, showed increased choline uptake is again seen in the prostatectomy bed on the left and involving the posterior bladder base is essentially unchanged from the previous scan. The small lymph nodes with choline uptake seen on the previous scan are unchanged. The pulmonary infiltrate have decreased. No new sites of abnormal choline uptake are noted. He was Tolerating ADT with Zoladex and Zytiga/prednisone well. He went to [facility] for follow-up on 06/29/2019. He underwent PET/CT choline which showed likely tumor at the left of urethral vesicle junction has SUV of 4.5 compared to 3.4 on 12/25/2018. Nonspecific activity to the right of urethrovesical junction has SUV of 1.8 compared to 2.1 previously. Likely tumor involving left sided urinary bladder including the left ureterovesical junction has SUV of 6.2 compared to 6.6 previously. Likely metastatic activity in the proximal right external iliac lymph node has SUV of 2.6 versus 2.2 previously. Nonspecific activity along the right common iliac vessels and adjacent to lumbar degenerative changes as current SUV of 2.9 versus 2.1 previously and his PSA was 2.5. based on these findings, Dr. Lewis recommended continue with Zoladex but discontinue Zytiga and taper off prednisone. Initiate xtandi and underwent follow-up CT PET on December 27, 2019 at [facility] which showed disease progression when compared with scan done on June 28, 2019 and showed malignant appearing choline activity along the urinary bladder oneal has increased,, prominent disease in the left UVJ region has current SUV of 9.7 versus 6.2 on June 2019. Metastatic appearing nodularity in the fat to the right of the urinary bladder anteriorly has increased. Approximate 1.7 x 1.3 cm right external iliac node measuring 0.7 x 0.5 cm on June 28, 2019 and now with SUV of 6 compared to 2.6 at that time. A likely metastatic right common iliac node now measures 1.8 x 1.2 cm versus 1 x 0.7 cm on June 28, 2019. Multiple nodes in the thorax shows interval increase activity compared to June 28, 2019, these are nonspecific could be due to granulomatous inflammation. As far as his left pelvic pain is concern, which is under control and left nephrostomy tube was suggested rather than continuing with ureteral stent exchanges every couple of months. Mr Kauffman was seen by Dr. Lewis and MSI/BRCA 1 and 2 were checked and both came back negative- so no role of immunotherapy with pembrolizumab and olaparib. Clinical trial was also considered but considering patient's age and overall condition, further chemotherapy with cabazitaxel was recommended and patient agreed. And he was advised to continue Xtandi until cabazitaxel is planned. Mr Kauffman began his first cycle of cabazitaxel on February 21, 2020. His Zoladex was last given on 01/28/2020. Mr Kauffman underwent choline CT PET scan after 4 doses of Jevtana at [facility] which was done on May 09, 2020 showed stable to mildly improved choline avid bladder and pelvic node metastatic disease. Enlarging subcentimeter left periaortic retroperitoneal nodes with low-grade colon activity, technically indeterminate for new nodes metastatic disease., Could be reactive. Patient was evaluated by on May 13, 2020 and his recommendations were to continue with Jevtana for 4 more cycles and then repeat: CT PET scan and also continue with 3 monthly Zoladex. And continue left ureteral stent exchanges locally. He continues with treatment.Patient completed total 8 cycles of Jevtana on July 23, 2020 And Followup Choline PET/CT scan on September 05, 2020 reported bladdrmetastatic disease with predominant involvement of left ureterovesical region and local invasion into pelvis including involvement of left pubic bone. The nodularity at right ureterovesical region with involvement of distal right ureter resulting in moderate right hydronephrosis, which may be new; Mild uptake within the subcentimeter left para-aortic node is indeterminate; Uptake within mediastinal and bilateral hilar nodes is nonspecific Mr Kauffman is being followed by Dr. 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 He is scheduled see Dr. Lloyd on November 08, 2019 for possible left ureteral stent change. His prostate cancer was discussed [facility] Lewis has recommended apalutamide or darolutamide while continuing with Zoladex and also consider low-dose dexamethasone. Came for follow-up, complaining of off-and-on low-grade fever the last couple of weeks and pain/discomfort in the suprapubic area, patient has left ureteral stent, and on chronic antibiotics, now being managed by Dr. Lloyd and patient scheduled to see him today. Otherwise no new bony pains, no nausea or vomiting no diarrhea or constipation, no jaundice, occasionally hot flashes otherwise tolerating 3-month Zoladex well along with apalutamide/dexamethasone. As per patient he is scheduled see Dr. Lewis at [facility] next week Medications: AZO Yeast Plus 1 Tablet Oral daily PRN, Hiprex 1 Tablet (of 1 G) Oral b.i.d., MetFORMIN HCl 1 Tablet (of 500 mg) Oral daily, oxyCODONE-Acetaminophen 1 Tablet (of 5-325 mg) Oral q 4 to 6 hours PRN, Vitamin C 1 Tablet (of 1 G) Oral daily Allergies: Cipro, Penicillins, and Sulfa Antibiotics. Review of Systems: Review of Systems is not available for this patient. Vital Signs: Performed on Jan 27, 2021 10:56 Height - 67.00 in Weight - 205.2 lbs (LOW) BSA - 2.04 sq.m BMI - 32.14 (HIGH) Temperature - 96.1 F (LOW) Pulse - 86 /min Respiration - 18 /min BP - 111/70 mm(hg) O2 Sat - 96 % Pain - 1 Fatigue - 9 Performance Status: 1 - No physically strenuous activity, but ambulatory and able to carry out light or sedentary work (e.g. office work, light house work). (ECOG) Physical Examination: ENMT - No mouth sores, no thrush, no jaundice, Respiratory - Lungs are clear to auscultation, Cardiovascular - Regular rate and rhythm of heart, Abdomen - Soft, bowel sounds present, Extremities - No visible edema. Lab/Imaging: Test performed on Nov 25, 2020 12:17 Cholesterol, Total 192 mg/dL Sodium 139 mmol/L TSH 2.69 uIU/mL Potassium 3.8 mmol/L Triglycerides 107 mg/dL Chloride 104 mmol/L LDL Cholesterol 137 mg/dL CO2 23 mmol/L Anion Gap 15.8 HDL Cholesterol 34 mg/dL BUN 18 mg/dL Cholesterol/HDL Ratio 5.65 mg/dL Creatinine 0.8 mg/dL LDL / HDL Ratio 4.03 RATIO Cr Clearance (Est) 103.1800 mL/min Glucose 96 mg/dL Osmolality - Calculated 290 mOsm/kg Calcium 8.3 mg/dL Protein, Total 6.6 g/dL Albumin 3.4 g/dL Globulin 3.2 g/dL Bilirubin, Total 0.2 mg/dL ALT (SGPT) 9 U/L AST (SGOT) 11 U/L Alkaline Phosphatase 47 IU/L WBC 6.5 10 3/uL RBC 4.71 10 6/uL HGB 12.5 g/dL HCT 40.3 % MCV 85.6 fL MCH 26.5 pg MCHC 31.0 g/dL RDW 16.8 % Platelet Count 218 10 3/cmm MPV 9.9 fL Neutrophils 3.72 10 3/uL Lymphocytes 1.6 10 3/uL Monocytes 0.8 10 3/uL Eosinophils 0.3 10 3/uL Basophils 0.1 10 3/uL Neutrophil % 57.0 % Lymphocyte % 25.0 % Monocyte % 12.1 % Eosinophil % 4.6 % Basophils % 0.8 % NRBC % 0 % Test performed on Sep 18, 2020 14:50 PSA 3.60 ng/mL Test performed on Aug 13, 2020 09:01 Magnesium 1.8 mg/dL Impression: Recurrent prostate cancer status post cystoscopy and excision in February 2015 followed by combined androgen blockade with Zoladex and Casodex. with gradual increasing PSA while on combined androgen blockade Initially he was diagnosed prostate cancer in 1999- at that time he underwent retropubic radical prostatectomy. Status post radiation therapy in 2010 for increasing PSA and lymphadenopathy. Hematuria/dysuria since February 2015. CT scan of abdomen pelvis done on 03/02/2018 showed soft tissue mass measuring 2.2 cm x 3.2 x 2.9 in the expected location of the prostate inseparable from the urinary bladder floor urinary bladder wall is diffusely thickened and there is a soft tissue attenuation between the soft tissue mass in the anterior infra levator rectal wall, rectal lesion not excluded Seen by Dr. Edwards on 10/24/2017 and his impression was changes in the rectum are probably due to prostate invasion rather than primary rectal lesion. 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 Mr Kauffman was seen by Dr Lloyd for persistent UTI symptoms post op and was placed on detention antibiotics. His symptoms resolved and he began recommended chemotherapy with docetaxel on 03/14/2018. Mr. Kauffman has tolerated the chemotherapy relatively well. He did have chemotherapy-induced neutropenia on day 8 of cycle 1. His initial ANC at time of treatment on 03/14/2018 was 13,300 on day 8 his ANC was [address] CT PET scan done on 05/06/2018 showed no evidence for recurrent or residual malignancy., Tiny scattered pelvic nodes are radiographically benign and FDG negative, no findings to indicate osseous metastatic disease and left-sided hydronephrosis is present and a ureteral catheter is in place. PSA checked on 05/15/2018 showed 1.81 compared to 6.49 on 03/14/2018 when chemotherapy with Taxotere was started And concluded his chemotherapy with Taxotere e.g. 6 doses on 06/27/2018 Status post left ureteral stent placement on 05/22/2018 Again replaced on 09/21/2018 Went to [facility] on 09/07/2018,Choline C 11 scan done on 09/07/2018 showed large choline avid recurrence in the prostatectomy bed involving the posterior bladder base has improved since prior exam, however suspicious new small focus of choline avid disease along the right posterior bladder wall. New choline avid node metastatic disease including a right supraclavicular node. And increasing pulmonary infiltrate and/or atelectasis in the posterior lower lobes with reactive choline activity. so he was started on Zytiga/prednisone for one year along with an 3 monthly Zoladex. Mr Kauffman returned to the [facility] on 12/25/2018 and had choline C 11 scan done on same date showed when compared with choline scan done on 09/07/2018, increased choline uptake is seen again in the prostatectomy bed on the left and involving the posterior bladder base is essentially unchanged from the previous scan. The small lymph nodes with choline uptake seen on the previous scans are unchanged the pulmonary infiltrates have decreased. No new sites of abnormal choline uptake are noted. Clinically, patient was doing reasonably, but recently had evidence of disease progression confirmed with CT PET choline and progressive PSA. Mr Kauffman went to [facility] for follow-up and now palliative chemotherapy with cabazitaxel is recommended. Mr Kauffman had disease progression on Zytiga, which he was tolerating well but presented with progressive disease and he was also on 3 monthly Zoladex. At that point, Mr Kauffman has discontinued Xtandi and role of cabazitaxel was discussed. The current treatment plan is cabazitaxel 20 mg/m??? every 3 weeks along with Neulasta to prevent chemotherapy-induced neutropenia as patient is a high risk. The initial plan was for him to receive 4 cycles of chemotherapy as recommended by [facility] and then he will go to clinic for follow-up evaluation including scans. Mr Kauffman was advised to pursue treatment with cabazitaxel with Neulasta support. Mr. Kauffman underwent right Port-A-Cath [place] in the SVC/RA junction [place] [facility] [place]. He began his first cycle on 02/21/2020. He continues with every 3-month Zoladex. His last injection was given on April 29, 2020. He is currently off of all prednisone.And completed 8 cycles of Jevtana on July 23, 2020 And follow-up CT PET scan done on September 05, 2020 showed bladder metastatic disease with predominant involvement of left ureterovesical region and local invasion into pelvis including involvement of left pubic bone and there is nodularity at right ureterovesical region with involvement of distal right ureter resulting in moderate hydronephrosis Mild uptake within the subcentimeter left para-aortic lymph node is indeterminate., Patient is being followed by Dr. Lloyd, case was discussed with Dr. Lewis at [facility], he is recommended to discontinue Jevtana and start on apalutamide along with Zoladex and also low-dose dexamethasone and may consider consultation with radiation oncology regarding involved field radiation therapy Plan: Discussed with patient regarding his labs white blood count 10.8 hemoglobin 11.4 hematocrit 36.5 platelets 300,000 CMP within normal limit except creatinine 1.3 compared to 0.8 previously and PSA 15.34 compared to 10.81 mg first 2020 and prior to that 6.6 on November 11, 2020 Clinically, patient with no new signs symptom except lower pelvic pain and low-grade fever which could be due to left ureteral stent or related urine tract infection patient is on chronic oral antibiotics and being managed by urology and patient said he is scheduled see Dr. Lloyd today. As per patient he is tolerating aplutamide/dexamethasone , We will proceed with his 3 monthly dose of Zoladex today, his follow-up labs shows progressive PSA and there is a concern for disease progression and patient is scheduled see Dr. Lewis at [facility] next week to discuss further treatment option, patient will return to clinic in 1 month with CBC CMP and PSA unless Dr. Lewis recommend different treatment option, in that case we will see him early. As far as off and on low-grade fever and suprapubic pain is concerned, could be due to recurrent urine tract infection or left ureteral stent malfunction, patient is on oral antibiotics and he is scheduled to see Dr. Lloyd today Mild leukocytosis probably due to dexamethasone or underlying urine tract infection Signed By: Tom Alcazar M.D. <<Signature on File>>
== END 2021-01-27 09:05 | disposition home or self-care (01) ==
LOC: ONCMED 09:08
PROVIDERS: PCP Nurse Practitioner; Visit Provider Internal Medicine Hematology & Oncology
DX: C61 Malignant neoplasm of prostate (principal); Z79.899 Other long term (current) drug therapy; Z85.46 Personal history of malignant neoplasm of prostate; Z92.21 Personal history of antineoplastic chemotherapy; Z92.3 Personal history of irradiation; Z96.0 Presence of urogenital implants
CPT/HCPCS: 36591; 80053; 81003; 84153; 85025; 87086; 87106; 96372; 96402; 99215; J9202

== ENCOUNTER 2021-01-27 09:59 | Outpatient (CLI) | payer MEDICARE, OTHER, SELFPAY ==
--- NOTE | 2021-01-27 10:09 | XR_ITS ---
WS: [id number] Exam: XR [id number] Date/Time of Exam: 01/27/2021 10:20 AM Reason For Exam: URETERAL OBSTRUCTION Compared to limited C-arm image performed 11/13/2020. A left-sided ureteral stent is noted and appears to be in appropriate location. There is an 8 mm calc ification superimposing the lower pole the left kidney that may represent a renal stone. No bowel obs truction or free air. Numerous surgical clips in the right and left pelvis. Moderately advanced degen erative changes of the lumbar spine and hips. XR/XR KUB [id number] IMPRESSION: 1. Left ureteral stent in place appearing to be in appropriate location. 2. 8 mm calcification superimposing the lower pole the left kidney probably a r enal stone. 3. No acute abdominal process.
== END 2021-01-27 10:00 | disposition home or self-care (01) ==
LOC: RAD 10:06
PROVIDERS: PCP Nurse Practitioner; Visit Provider Urology
DX: N13.5 Crossing vessel and stricture of ureter without hydronephrosis (principal); Z96.0 Presence of urogenital implants; N20.0 Calculus of kidney
CPT/HCPCS: 74018

== ENCOUNTER 2021-01-30 14:11 | Inpatient (IN) | payer MEDICARE, OTHER, SELFPAY ==
[2021-01-30] VITALS (7 sets, daily range): BP systolic 130–186; BP diastolic 70–93; PULSE 82–94; RESP 16–18; TEMP 37–37.6; O2SAT 93–96; BMI 31.1
--- NOTE | 2021-01-30 14:24 | CT_ITS ---
WS: [id number] Exam: CT abdomen pelvis w con* [id number] Date/Time of Exam: 01/30/2021 3:23 PM Reason For Exam: abd pain Compared to prior exam 01/12/2020 DLP: 1654.[address] scans at [facility] use at least one of these dose optimization techniques: automat ed exposure control; mA and/or kV adjustment per patient size (includes targeted exams where dose is matched to clinical indication); or iterative reconstruction. Lower lung zones are clear. Coronary artery calcifications noted. The liver, gallbladder, spleen, sto mach and pancreas appear normal. Small hiatal hernia. The abdominal aorta is normal in caliber. The p ortal vein and IVC are patent. Normal adrenal glands. A left-sided ureteral stent is in place and rachelle ears to be in appropriate location. Hydroureteronephrosis of the right kidney is noted which represen ts a new finding since the previous study. The right ureter is dilated to the UVJ. No obvious calcifi ed stone is noted in the right kidney or the right ureter. No renal mass identified. 4 mm nonobstruct ing stone noted in the lower pole of the left kidney. No free air. No lymphadenopathy. Small bowel lo ops are normal in caliber. No sign of acute appendix. Several isolated large bowel diverticuli noted. Although the urinary bladder is decompressed there appears to be bladder wall thickening and irregul arity. Underlying cystitis or bladder mass could have this appearance. No destructive bone lesions ar e seen. Small fat filled left inguinal hernia. Spinal canal stenosis at L3-4, L4-5 and L5-S1. Probabl e disc herniation at L5-S1. CT/CT abdomen pelvis w con* [id number] IMPRESSION: 1. New right hydronephrosis and hydroureter. The ureter is dilated to the UVJ. No obvious calcified stone in the right kidney or right ureter. 2. Collapsed urinary bladder with wall thickening and irregularity. Underlying cystitis or bladder mass should be a consideration. Further workup with direct visualization suggested. 3. Double pigtail left ureteral catheter in good position. 4 mm nonobstructing stone in the lower pole the left kidney. 4. Other chronic nonemergent findings as detailed above.
--- NOTE | 2021-01-30 14:24 | XR_ITS ---
WS: [id number] Exam: XR chest 1V portable [id number] Date/Time of Exam: 01/30/2021 2:24 PM Reason For Exam: dyspnea/cough Comparison 02/14/2020. The lungs are clear as visualized. Mild cardiac enlargement unchanged. No obvious pleural effusion. T he mediastinum is not widened. Regional bony structures are intact. A right subclavian port ends at t he cavoatrial junction. XR/XR chest 1V portable [id number] IMPRESSION: 1. No acute cardiopulmonary finding. 2. Mild cardiac enlargement unchanged.
--- NOTE | 2021-01-30 14:24 | ECG_ITS ---
[facility] Test Date: 2021-01-30 Pat Name: Alex Kauffman Department: Room: Gender: Male Weather Observer: : 1940 Requested By: Jay Leon Order Number: [id number] Reji MD: Ludmila Cerda M.D. Measurements Intervals [place] Rate: 85 P: DC: QRS: -68 QRSD: 90 T: 74 QT: 373 QTc: 444 Interpretive Statements ATRIAL FIBRILLATION LEFT ANTERIOR FASCICULAR BLOCK [QRS AXIS <= -45, QR IN I, RS IN II] POSSIBLE ANTERIOR MYOCARDIAL INFARCTION [30 ms Q WAVE IN V3/V4, OR R < 0.2 mV IN V4], PROBABLY OLD Compared to ECG 01/23/2019 21:25:25 Sinus rhythm no longer present Ventricular premature complex(es) no longer present Myocardial infarct finding still present Electronically Signed On 01-31-2021 14:50:36 CDT by Ludmila Cerda M.D. [id number]
--- NOTE | 2021-01-30 14:26 | ED_ITS ---
HPI - Male Genitourinary General: Chief complaint: Abdominal Pain Stated complaint: LOWER ABDOMINAL PAIN Time Seen by Provider: 01/30/21 14:16 History of Present Illness: HPI Narrative: 80-year-old male with history of prostate cancer presents emergency room with UTI he was seen earlier this week by Dr. Lloyd and started on oral antibiotics despite this he says he is not getting any better denies being any flank pain. He previously had stents his his left flank especially is bothering him today. Denies any fever sweats chills no cough or shortness of breath. Complaint: dysuria Onset (ago): day(s) Duration: constant Location: abdomen (Lower) Severity: moderate Quality: aching Relieving factors: none Exacerbating factors: none Associated symptoms: Reports dysuria and urinary incontinence (Chronic); Deny discharge, fevers/chills, hematuria, nausea, rash, swelling, urinary retention, mass or vomiting Review of Systems Const: Denies: fever(s), chills, body aches, change in appetite, fatigue or malaise ENMT: Denies: throat pain, ear or mastoid pain, nasal discharge or nasal congestion Card: Denies: chest pain, edema, dyspnea on exertion or orthopnea Resp: Denies: dyspnea, productive cough or non-productive cough GI: Denies: nausea or vomiting : Reports: dysuria and urinary incontinence (Chronic); Denies: hematuria Skin/Breast: Denies: rash or pruritus PFSH ED PFSH: Medical History Chronic cystitis Extrinsic ureteral obstruction Male stress incontinence Prostate cancer Surgical History History of radical retropubic prostatectomy Hx of transurethral destruction of bladder lesion S/P right knee surgery Status post placement of ureteral stent Family History Mother , in her 70's CAD (coronary artery disease) Father , in his 80's No problems noted. Social History Smoking and tobacco status: never smoked Alcohol intake: never Household members: spouse Marital status: Current occupational status: retired History of recent travel: No Physical Exam Const: COMMON NORMALS: no acute distress GENERAL APPEARANCE: cooperative HENMT: COMMON NORMALS: normocephalic, atraumatic, hearing grossly normal bilaterally and external ears normal HEAD & SCALP: normocephalic and atraumatic EXTERNAL EAR: Yes external ears normal Neck/C-Spine: COMMON NORMALS: no JVD Lymph: LYMPHATIC: no lymphadenopathy noted and no lymphedema noted Resp: COMMON NORMALS: normal respiratory effort, No retractions, No use of accessory muscles and clear to auscultation bilaterally AUSCULTATION: clear to auscultation bilaterally Cardio: COMMON NORMALS: no JVD, regular rate, regular rhythm and No murmurs present (Cardio) RATE: regular rate RHYTHM: regular rhythm GI: COMMON NORMALS: Soft to palpation and No hepatosplenomegaly present AUS CULTATION: Yes normoactive bowel sounds PALPATION: Yes Soft to palpation, No Tenderness to palpation present (GI), No Guarding due to palpation present (GI) and Yes No hepatosplenomegaly present Extremity: COMMON NORMALS: normal to inspection, capillary refill normal, no clubbing, cyanosis or edema, no calf tenderness and no pedal edema Skin: COMMON NORMALS: no rashes or lesions noted GENERAL SKIN EXAM: no rashes or lesions noted Course Vital Signs: Vital signs: Vital Signs Temperature 98.2 F 02/02/21 07:05 Pulse Rate 59 L 02/02/21 07:05 Respiratory Rate 17 02/02/21 07:05 Blood Pressure 146/81 02/02/21 07:05 Pulse Oximetry 96 02/02/21 07:05 MDM - Male MDM Narrative: Medical decision making narrative: Acute stenosis of the ureter secondary to prostate cancer. Patient was seen earlier this week with a cystitis. Has an acute kidney injury a anion gap metabolic acidosis acidosis secondary to the kidney injury. Antibiotics difficult due to the large allergy list discussed with hospitalist started on imipenem and vancomycin. Also discussed Dr. Lloyd he will see the patient and evaluate orders written. Lab Data: Labs: Lab Results 01/30/21 01/30/21 01/30/21 Range/Units 15:00 15:00 15:00 WBC 15.7 H (4.0-10.0) 10^3/ uL RBC 4.54 (4.1-5.3) 10^6/u L Hgb 12.1 (11.7-16.6) g/dL Hct 39.0 L (42.0-52.0) % MCV 85.9 (80-94) fL MCH 26.7 L (28.0-34.0) pg MCHC 31.0 (30.0-36.0) g/dL RDW 16.6 H (12.1-15.1) % Plt Count 283 (130-400) 10^3/c mm MPV 9.4 (7.4-10.4) fL Neut % (Auto) 78.5 % Lymph % (Auto) 10.4 % [place] % (Auto) 9.3 % Eos % (Auto) 0.8 % Baso % (Auto) 0.4 % Neut # (Auto) 12.29 H (1.8-7.7) 10^3/u L Lymph # (Auto) 1.6 (0.8-4.8) 10^3/u L [place] # (Auto) 1.5 H (0.2-0.9) 10^3/u L Eos # (Auto) 0.1 (0.0-0.8) 10^3/u L Baso # (Auto) 0.1 (0.0-0.1) 10^3/u L Nucleated RBC % (a uto) 0 % Nucleated RBCs # 0.0 /100WBC Sodium 137 (136-145) mmol/L Potassium 4.1 (3.5-5.1) mmol/L Chloride 99 (98-107) mmol/L Carbon Dioxide 17 L (22-29) mmol/L Anion Gap 26.1 H (5-19) BUN 50 H (8-23) mg/dL Creatinine 1.9 H (0.7-1.2) mg/dL GFR Calculation Not Reportable Glucose 120 H (65-115) mg/dL Calculated Osmolal ity 299 H (285-295) mOsm/k g Calcium 8.6 (8.5-10.5) mg/dL Iron 17 L (59-158) ug/dL TIBC 205 mcg/dl % Saturation 8.2 L (20-50) % Unsat Iron Binding 188 (112-347) ug/dL Total Bilirubin 0.3 (0.15-1.2) mg/dL AST 9 (0-40) U/L ALT 8 (0-41) U/L Alkaline Phosphata se 54 (40-130) IU/L Total Protein 6.6 (6.6-8.7) g/dL Albumin 3.6 (3.5-5.2) g/dL Globulin 2.9 (1.3-4.6) g/dL Procalcitonin 0.11 (0-0.5) ng/mL TSH 3.82 (0.27-4.20) uIU/ mL Urine Color (Yellow) Urine Appearance (CLEAR) Urine pH (5-7) Ur Specific Gravit y (1.005-1.030) Urine Protein (Negative) Urine Glucose (UA) (Normal) Urine Ketones (Negative) Urine Blood (Negative) Urine Nitrate (Negative) Urine Bilirubin (Negative) Urine Urobilinogen (Negative) mg/dL Ur Leukocyte [place] ase (Negative) Urine RBC (0-2) /hpf Urine WBC (0-5) /hpf Ur Squamous Epith Cells (0-5) /hpf Amorphous Sediment Urine Bacteria (NONE) /hpf 01/30/21 01/30/21 Range/Units 15:00 15:18 WBC (4.0-10.0) 10^3/ uL RBC (4.1-5.3) 10^6/u L Hgb (11.7-16.6) g/dL Hct (42.0-52.0) % MCV (80-94) fL MCH (28.0-34.0) pg MCHC (30.0-36.0) g/dL RDW (12.1-15.1) % Plt Count (130-400) 10^3/c mm MPV (7.4-10.4) fL Neut % (Auto) % Lymph % (Auto) % [place] % (Auto) % Eos % (Auto) % Baso % (Auto) % Neut # (Auto) (1.8-7.7) 10^3/u L Lymph # (Auto) (0.8-4.8) 10^3/u L [place] # (Auto) (0.2-0.9) 10^3/u L Eos # (Auto) (0.0-0.8) 10^3/u L Baso # (Auto) (0.0-0.1) 10^3/u L Nucleated RBC % (a uto) % Nucleated RBCs # /100WBC Sodium (136-145) mmol/L Potassium (3.5-5.1) mmol/L Chloride (98-107) mmol/L Carbon Dioxide (22-29) mmol/L Anion Gap (5-19) BUN (8-23) mg/dL Creatinine (0.7-1.2) mg/dL GFR Calculation Glucose (65-115) mg/dL Calculated Osmolal ity (285-295) mOsm/k g Calcium (8.5-10.5) mg/dL Iron (59-158) ug/dL TIBC mcg/dl % Saturation (20-50) % Unsat Iron Binding (112-347) ug/dL Total Bilirubin (0.15-1.2) mg/dL AST (0-40) U/L ALT (0-41) U/L Alkaline Phosphata se (40-130) IU/L Total Protein (6.6-8.7) g/dL Albumin (3.5-5.2) g/dL Globulin (1.3-4.6) g/dL Procalcitonin (0-0.5) ng/mL TSH Cancelled (0.27-4.20) uIU/ mL Urine Color Red (Yellow) Urine Appearance Bloody A (CLEAR) Urine pH 5 (5-7) Ur Specific Gravit y 1.015 (1.005-1.030) Urine Protein 3+ H (Negative) Urine Glucose (UA) Norm (Normal) Urine Ketones Negative (Negative) Urine Blood 3+ H (Negative) Urine Nitrate Negative (Negative) Urine Bilirubin Neg (Negative) Urine Urobilinogen Norm (Negative) mg/dL Ur Leukocyte [place] ase 2+ H (Negative) Urine RBC >100 H (0-2) /hpf Urine WBC >100 H (0-5) /hpf Ur Squamous Epith Cells 5-10 H (0-5) /hpf Amorphous Sediment Not Reportable Urine Bacteria Trace (NONE) /hpf Discharge Plan Discharge Patient Disposition: Admitted As Inpatient Admit Provider: Thompson Grijalva Clinical Impression: Prostate cancer, Hydronephrosis of right kidney, Acute kidney injury, High anion gap metabolic acidosis, Chronic cystitis, Status post placement of ureteral stent Condition: Stable Coding Level of Care Code ED Device Repair Technician for Chg Fwd
[2021-01-30] MEDS: ondansetron 2 mg/ML SDV 2 mL 4 MG IVP ×2 (14:36→19:59)
[2021-01-30] MEDS: morphine 4 mg/mL SDV 1 mL IVP (14:39)
[2021-01-30 15:15] LABS: Basophils # 0.1 10^3/uL (0.0-0.1); Basophils % 0.4 %; Eosinophils # 0.1 10^3/uL (0.0-0.8); Eosinophils % 0.8 %; Hemoglobin 12.1 g/dL (11.7-16.6); Lymphocytes # 1.6 10^3/uL (0.8-4.8); Lymphocytes % 10.4 %; Mean Corpuscular Hemoglobin 26.7 pg (28.0-34.0); Mean Corpuscular Volume 85.9 fL (80-94); Mean Platelet Volume 9.4 fL (7.4-10.4); Monocytes # 1.5 10^3/uL (0.2-0.9); Monocytes % 9.3 %; Neutrophils # 12.29 10^3/uL (1.8-7.7); Neutrophils % 78.5 %; Nucleated Red Blood Cells % 0 %; Platelet Count 283 10^3/cmm (130-400); Red Blood Count 4.54 10^6/uL (4.1-5.3); Red Cell Distribution Width 16.6 % (12.1-15.1); White Blood Count 15.7 10^3/uL (4.0-10.0)
[2021-01-30] MEDS: iohexol 300 mg/mL 100 mL Btl IV (15:29)
[2021-01-30 15:46] LABS: Alanine Aminotransferase 8 U/L (0-41); Albumin Level 3.6 g/dL (3.5-5.2); Alkaline Phosphatase 54 IU/L (40-130); Chloride 99 mmol/L (98-107); Potassium 4.1 mmol/L (3.5-5.1); Sodium 137 mmol/L (136-145)
[2021-01-30 16:09] LABS: Specific Gravity, Urine 1.015 (1.005-1.030); Urine Appearance Bloody (CLEAR); Urine Color Red (Yellow); pH Urine 5 (5-7)
[2021-01-30 16:10] LABS: Add Urine Microscopic? YES; Bilirubin Urine Neg (Negative); Blood Urine 3+ (Negative); Glucose Urine UA Norm (Normal); Ketones Urine Negative (Negative); Leukocyte Esterase Urine 2+ (Negative); Nitrate Urine Negative (Negative); Protein Urine 3+ (Negative); Urobilinogen Urine Norm (Negative)
[2021-01-30 16:12] LABS: RBC Urine >100 /hpf (0-2); WBC Urine >100 /hpf (0-5)
[2021-01-30 16:13] LABS: Add Urine Culture? Yes; Bacteria Urine TRACE /hpf
[2021-01-30 16:22] LABS: Anion Gap 26.1 (5-19); Aspartate Amino Transferase 9 U/L (0-40); Blood Urea Nitrogen 50 mg/dL (8-23); Calcium 8.6 mg/dL (8.5-10.5); Carbon Dioxide 17 mmol/L (22-29); Globulin 2.9 g/dL (1.3-4.6); Glucose 120 mg/dL (65-115); Osmolality Calculated 299 mOsm/kg (285-295); Total Bilirubin 0.3 mg/dL (0.15-1.2); Total Protein 6.6 g/dL (6.6-8.7)
--- NOTE | 2021-01-30 17:21 | P.HP_ITS ---
Providers/Chief Complaint Primary Care Provider: Roxann Masters APN Chief Complaint: LOWER ABDOMINAL PAIN History of Present Illness Alex Kauffman is a 80 year old male with past medical history of prostate cancer, recurrent UTI, most recent left ureteral stent exchange in November 2020 presents to the ER today with lower abdominal pain radiating to back along with dysuria and occasional hematuria for last 5 weeks. Patient states he follows up with Dr. Lloyd for urology and Dr. Alcazar for oncology. Patient has been on Levaquin for last 1 month for a possible UTI and was recently changed to doxycycline on . Today is Tuesday. He has been having occasional episodes of nausea and vomiting along with chills and last night had a fever up to 101.1 Fahrenheit. Pain is cramping like radiating pain to back and flanks. States occasionally he is passing blood clots. States he is been passing blood clots for last 2 years since the stents were placed and was most recently in hospital over a year ago for a UTI. Blood work in the ER showed mild to 15.7, hemoglobin of 12, platelet of 283, sodium of 137, chloride of 99, BUN of 50, creatinine of 1.9, UA consistent with 3+ protein, 3+ blood, 2+ leuk esterase, more than [address] abdomen pelvis and chest x-ray as reported below. Review of Systems General: Reports: 10 or more systems reviewed and unremarkable except in HPI and below Const: Denies: fever(s), chills, body aches, change in appetite, change in weight, malaise, night sweats, diaphoresis, change in sleep pattern, daytime sleepiness or snoring Eyes: Denies: change in vision, blurry vision, photophobia, eye discomfort or eye discharge ENMT: Denies: throat pain, enlarged tonsils, hoarseness, mouth pain, oral sores, dry mouth, tinnitus, nasal congestion or post nasal drip Card: Denies: chest pain, palpitations, irregular heart rhythm, edema, swelling of feet/ankles, lightheadedness, syncope, pre-syncope, dyspnea on exertion, orthopnea, leg pain with exertion or acrocyanosis Resp: Denies: dyspnea, productive cough, non-productive cough, wheezing, stridor, pain on inspiration, change in phlegm color, hemoptysis or chest congestion GI: Denies: abdominal pain, nausea, vomiting, hematemesis, coffee ground emesis, dysphagia, heartburn, diarrhea, constipation, bloating, GI cramping, change in bowel habits, pain on defecation, hematochezia or melena : Denies: flank pain, difficulty urinating, dysuria, urinary frequency, urinary urgency, urinary hesitancy, urinary dribbling, difficulty starting urination, change in urine stream, nocturia or hematuria Musc: Denies: neck pain, back pain, extremity pain, joint pain, joint swelling, joint redness, joint stiffness or limited range of motion Neuro: Denies: headache(s), numbness in extremities, weakness in extremities, sensory changes, lack of coordination, difficulty walking, frequent falls, dizziness, vertigo, confusion, Slurred speech present, difficulty communicating thoughts or seizure-like activity Psych: Denies: anxiety, depression, mood swings, panic attacks, hopelessness or irritability Endo: Denies: polyuria, polydipsia, tired all the time, cold intolerance, excessive sweating, flushing or heat intolerance Joshua/Lymph: Denies: easy bruising or easy bleeding All/Imm: Denies: tongue swelling, facial swelling or acute wheezing Medications/Allergies Home Medications Medication Instructions Recorded Confirmed Last Taken Type ascorbic acid (vitamin C) 1,000 mg 1 gm PO BID PRN tab 09/20/19 01/30/21 11/12/20 History tablet metformin 500 mg tablet 500 mg PO DAILY 09/20/19 01/30/21 01/30/21 History hydrocodone-acetaminophen [[place]] 1 tab PO Q6H PRN #10 tab NS 02/14/20 01/30/21 11/03/20 Rx apalutamide 60 mg tablet 240 mg PO DAILY 11/10/20 01/30/21 01/29/21 History dexamethasone 2 mg tablet 2 mg PO BID 11/10/20 01/30/21 01/30/21 History doxycycline hyclate 100 mg tablet 100 mg PO BID #60 tab 01/27/21 01/30/21 0 01/30/21 Rx methenamine hippurate 1 g PO BID PRN 01/30/21 01/30/21 Unknown History oxycodone-acetaminophen 1 tab PO Q6H PRN 01/30/21 01/30/21 Unknown History Allergies Allergy/AdvReac Type Severity Reaction Status Date / Time ceftriaxone [From Rocephin] Allergy ALGY-Rash Verified 01/30/21 15:06 ciprofloxacin Allergy Unknown Verified 01/30/21 15:06 Penicillins Allergy ALGY-Rash Verified 01/30/21 15:06 Sulfa (Sulfonamide Allergy Unknown Verified 01/30/21 15:06 Antibiotics) sulfamethoxazole Allergy Unknown Verified 01/30/21 15:06 [From Bactrim] trimethoprim [From Bactrim] Allergy Unknown Verified 01/30/21 15:06 PFSH Acute PFSH: Medical History (Updated 01/30/21 @ 17:29 by Thompson Grijalva MD) Chronic cystitis Extrinsic ureteral obstruction Male stress incontinence Prostate cancer Surgical History (Updated 01/30/21 @ 17:25 by Thompson Grijalva MD) History of radical retropubic prostatectomy Hx of transurethral destruction of bladder lesion S/P right knee surgery Status post placement of ureteral stent Family History Mother , in her 70's CAD (coronary artery disease) Father , in his 80's No problems noted. Social History Smoking and tobacco status: never smoked Alcohol intake: never Household members: spouse Marital status: Current occupational status: retired History of recent travel: No Vitals/I&O/Wt Last Vital Signs Temp 98.6 F 01/30/21 14:17 Pulse 87 01/30/21 14:42 Resp 16 01/30/21 14:42 BP 179/91 01/30/21 14:42 Pulse Ox 96 01/30/21 14:42 Weight last 48 hrs Weight 92.986 kg Physical Exam Narrative: EXAM NARRATIVE: General: No acute distress, AO x3, pale, sick appearing HEENT: PERRLA, pupils bilaterally equal and reactive Chest: Normal vesicular breath sounds, no added sounds, equal good air entry bilaterally CVS: S1-S2 regular, no murmurs, no tachycardia, no gallops, no rubs Abdomen: Soft, nontender, no organomegaly, bowel sounds present, bilateral flank tenderness Neuro: No focal deficits, no facial deformity, AO x3, power 5/5 in all limbs Data : 01/30/21 15:00 01/30/21 15:00 Micro: Microbiology 01/30/21 16:00 Blood Culture - Preliminary Blood SPECIMEN COLLECTED 01/30/21 15:00 Blood Culture - Preliminary Blood SPECIMEN COLLECTED A&P Assessment and plan (1) Hydronephrosis of right kidney: Status: Acute (2) Pyelonephritis: Status: Acute (3) Status post placement of ureteral stent: Status: Acute (4) Acute kidney injury: Status: Acute (5) High anion gap metabolic acidosis: Status: Acute (6) Prostate cancer: Status: Acute Additional A&P Information 80 old gentleman past medical history of prostate cancer, left ureteral stent placement, presents to the ER today with ongoing dysuria, hematuria for last 2 weeks and has failed outpatient treatment with Levaquin and doxycycline. Pyelonephritis: Hydronephrosis of the right kidney: S/p placement of ureteral stent on the left: CT abdomen pelvis results appreciated. Check blood cultures, urine culture, MRSA swab, procalcitonin. On review of old urine cultures patient most recently grew yeast. Has has a history of growing Enterococcus faecalis and Pseudomonas aeruginosa in the past. Start patient on vancomycin and imipenem. Patient is allergic to penicillin. Also start patient on fluconazole. Urology has been consulted for possible decompression surgery for right hydronephrosis. Keep mean arterial pressure over 65. Continue home dose of dexamethasone 2 mg p.o. twice daily to avoid adrenal insufficiency. JEANNETTE: Most likely secondary to infection along with obstructive uropathy. IV fluids with normal saline at 75 cc/h. Monitor for fluid overload. Last echocardiogram in December 2019 shows an EF of 60% with grade 2 diastolic dysfunction with RVSP of 40 mmHg. High anion gap acidosis: Most likely secondary to JEANNETTE. Check lactate. Fluid as above. We will continue to monitor BMP daily for now. Prostate cancer: For now hold off on chemotherapy oral medication. Continue with dexamethasone. Check iron panel, procalcitonin, TSH, HbA1c. CODE STATUS: is bedside. Patient would want to be full code. Regular diet. Heparin for DVT prophylaxis for 5000 every 12. Attestations Medical Necessity Statement*: Admission for more than 2 midnights of pyelonephritis, acute kidney injury, high anion gap metabolic acidosis Time Spent in Patient Care: Greater than 35 minutes (>than 50% of time spent in counselling and/or direct pt care on unit) . Coding Level of Care Code Acute At Risk Paraprofessional for Chg Fwd Diagnoses Hydronephrosis of right kidney N13.30 Pyelonephritis N12 Status post placement of ureteral stent Z96.0 Acute kidney injury N17.9 High anion gap metabolic acidosis E87.2 Prostate cancer C61
[2021-01-30] MEDS: fluconazole premix 100 MG in empty flexible container 1 EACH 50 MG IV (17:49)
[2021-01-30 18:01] LABS: Procalcitonin 0.11 ng/mL (0-0.5); Thyroid Stimulating Hormone 3.82 uIU/mL (0.27-4.20)
[2021-01-30 18:12] LABS: Iron 17 ug/dL (59-158); Percent Saturation 8.2 % (20-50); Total Iron Binding Capacity 205 mcg/dl; Unsaturated Iron Binding 188 ug/dL (112-347)
[2021-01-30 18:18] LABS: Lactic Sepsis W/Reflex 1.8 mmol/L (0.5-2.2)
[2021-01-30] MEDS: vancomycin 1,250 MG/250 ML PIGGYBACK 250 MG IV (19:58)
[2021-01-30] MEDS: sodium chloride 0.9% 1,000 ML 75 ML IV (19:58)
[2021-01-30] MEDS: famotidine 20 mg/2 mL INJ IVP (19:59)
[2021-01-30] MEDS: heparin 5,000 unit/mL INJ 1 mL 5000 UNIT SUBCUT (20:00)
[2021-01-30] MEDS: ferrous gluconate 324 mg Tablet PO (20:00)
[2021-01-30 21:30] LABS: Glucose Point of Care 166 mg/dL (70-110)
[2021-01-31] MEDS: HYDROcodone-acetaminophen 5-325 mg Tablet 1 TAB PO ×2 (01:08→13:36)
[2021-01-31 04:00] VITALS: BP 114/65; PULSE 73; RESP 18; TEMP 37.1; O2SAT 95
--- NOTE | 2021-01-31 04:51 | P.CONIM_ITS ---
Providers/Reason For Consult Consulting Physician/Specialty*: Urology/ Lloyd Reason for Consult*: Obstructive Uropathy Attending Physician: Thompson Grijalva MD Primary Care Provider: Roxann Masters APN History of Present Illness History of Present Illness Alex Kauffman is a 80 year old male well known to me for history of recurrent [employer] having failed radical prostatectomy and salvage radiation therapy. Currently on systemic therapy for [employer] beginning in 2018 at [facility] oncology, under the care of Dr. Alcazar. 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 It appeared the disease also had local progression into the left pubic bone. There has been a significant development of fixation of the bladder neck with this progression and deterioration of normal architecture over time noted with serial stent changes. Disease advancement not only included local progression but the development of increasing pelvic and retroperitoneal lymphadenopathy. Recent PSA jess from 6.6 in to 10.8 in December and then to 15.3 this month. In August 2020 imaging showed new increased RIGHT HYDRONEPHROSIS consistent with now bilateral trigonal involvement. Further complicated by both bacterial and candidal UTIs with positive cultures. Prior hospitalization required for infection treatment. LEFT ureteral stent has been changed regularly with intervals of 2-4 months. We have discussed PERCUTANEOUS NEPHROSTOMY as a reasonable option due to stent discomfort, locally deteriorating tissue character, and encrustation with subsequent intermittently poor drainage of stent, but to date he has been reluctant to consider this. He was seen in clinic earlier this week and antibiotics changed to Doxycycline for increasing symptoms of UTI. WBC was 11.8. Urine looked infected: always does. Culture growing yeast. Worsened and presented to ED yesterday with increased WBC to 15.7, Creatinine bump to 1.9, and RIGHT HYDRONEPHROSIS new to our CT images but previously noted at [place]. Not clear as to degrees of change. The dilation extends distally to the trigone and as expected appears secondary to progessive locally invasive [employer]. There is some bilateral perirenal stranding but it does not appear to be significant. There appears to be equal perfusion bilaterally of the kidneys on the early images on the CT scan. No delayed images were obtained. Has been started on broad spectrum antibiotics and antifungals. Clinically he is hemodynamically stable and shows no progression of infectious instability since admission. Repeat labs today are pending. Will review options: Convert to bilateral percs, attempt unroofing of RIGHT ureteral orifice and place stent, or manage conservatively with expectant therapy. Transurethral resection may be quite difficult secondary to progressive fixation of the bladder neck developing over time secondary to local progression. I expect that this downturn in his health including the increased creatinine and his current symptoms are not directly related to the right-sided obstruction in the short-term. I think that the hydronephrosis represents a chronic progressive process. If his infection can be controlled in the short-term at least to gives us an opportunity to work through the details regarding long-term management of his upper urinary tracts with the potential pitfalls and benefits of different approaches. Review of Systems Const: Reports: fever(s) and malaise Eyes: Denies: change in vision or blurry vision ENMT: Denies: throat pain Card: Denies: chest pain or palpitations Resp: Denies: dyspnea, productive cough or wheezing GI: Reports: abdominal pain, nausea and vomiting : Reports: flank pain, dysuria and hematuria Musc: Denies: joint redness or joint warmth Skin/Breast: Denies: rash or jaundice Neuro: Denies: headache(s) or confusion Psych: Reports: memory loss (Mild); Denies: anxiety or depression Endo: Denies: flushing Joshua/Lymph: Denies: easy bruising All/Imm: Denies: urticaria or acute wheezing Meds/Allergies Home Medications and Allergies Home Medications Medication Instructions Recorded Confirmed Last Taken Type ascorbic acid (vitamin C) 1,000 mg 1 gm PO BID PRN tab 09/20/19 01/30/21 11/12/20 History tablet metformin 500 mg tablet 500 mg PO DAILY 09/20/19 01/30/21 01/30/21 History hydrocodone-acetaminophen [[place]] 1 tab PO Q6H PRN #10 tab NS 02/14/20 01/30/21 11/03/20 Rx apalutamide 60 mg tablet 240 mg PO DAILY 11/10/20 01/30/21 01/29/21 History dexamethasone 2 mg tablet 2 mg PO BID 11/10/20 01/30/21 01/30/21 History doxycycline hyclate 100 mg tablet 100 mg PO BID #60 tab 01/27/21 01/30/21 01/30/21 Rx methenamine hippurate 1 g PO BID PRN 01/30/21 01/30/21 Unknown History oxycodone-acetaminophen 1 tab PO Q6H PRN 01/30/21 01/30/21 Unknown History Allergies Allergy/AdvReac Type Severity Reaction Status Date / Time ceftriaxone [From Rocephin] Allergy ALGY-Rash Verified 01/30/21 15:06 ciprofloxacin Allergy Unknown Verified 01/30/21 15:06 Penicillins Allergy ALGY-Rash Verified 01/30/21 15:06 Sulfa (Sulfonamide Allergy Unknown Verified 01/30/21 15:06 Antibiotics) sulfamethoxazole Allergy Unknown Verified 01/30/21 15:06 [From Bactrim] trimethoprim [From Bactrim] Allergy Unknown Verified 01/30/21 15:06 Current Medications Current Medications Generic Name Dose Route Start Last Admin Trade Name Freq PRN Reason Stop Dose Admin Hydrocodone Bitart/Acetaminophen 1 tab 01/30/21 19:06 01/31/21 01:08 Hydrocodone-Acetaminophen 5-325 Mg Tablet PO 1 tab Q6H PRN Administration pain Famotidine 20 mg 01/30/21 19:06 01/30/21 19:59 Famotidine 20 Mg/2 Ml Inj IVP 20 mg Q12H EBER Administration Ferrous Gluconate 324 mg 01/30/21 19:06 01/30/21 20:00 Ferrous Gluconate 324 Mg Tablet PO 324 mg BIDWM EBER Administration Heparin Sodium (Beef Lung) 5,000 unit 01/30/21 19:30 01/30/21 20:00 Heparin 5,000 Unit/Ml Inj 1 Ml SUBCUT 5,000 unit Q12H EBER Administration Fluconazole 100 mg/ N/A 50 mls @ 50 mls/hr 01/30/21 17:00 01/30/21 19:00 IV Infused Q24H EBER Infusion Imipenem/Cilastatin Sodium 250 100 mls @ 200 mls/hr 01/30/21 19:00 01/31/21 03:36 mg/ Sodium Chloride IV 200 mls/hr Q8H EBER Administration Protocol Sodium Chloride 1,000 mls @ 75 mls/hr 01/30/21 19:06 01/30/21 19:58 Sodium Chloride 0.9% IV 75 mls/hr .[id number] EBER Administration Ondansetron HCl 4 mg 01/30/21 19:06 01/30/21 19:59 Ondansetron 2 Mg/Ml Sdv 2 Ml IVP 4 mg Q8H PRN Administration vomiting, or N/V if npo PFSH Acute PFSH: Medical History Chronic cystitis Extrinsic ureteral obstruction Male stress incontinence Prostate cancer Surgical History History of radical retropubic prostatectomy Hx of transurethral destruction of bladder lesion S/P right knee surgery Status post placement of ureteral stent Family History Mother , in her 70's CAD (coronary artery disease) Father , in his 80's No problems noted. Social History Smoking and tobacco status: never smoked Alcohol intake: never Household members: spouse Marital status: Current occupational status: retired History of recent travel: No Vitals/I&O/Wt Last Vital Signs Temp 99.4 F 01/30/21 23:40 Pulse 82 01/30/21 23:40 Resp 18 01/30/21 23:40 BP 130/72 01/30/21 23:40 Pulse Ox 95 01/30/21 23:40 01/30/21 01/30/21 01/31/21 14:59 22:59 06:59 Intake Total 540 / 540 100 / 640 Balance 540 / 540 100 / 640 Weight last 48 hrs Weight 205 lb Physical Exam Const: COMMON NORMALS: no acute distress, patient oriented x3 and well nourished EXAM LIMITATIONS: no altered mental status NUTRITIONAL APPEARANCE: overweight ORIENTATION/CONSCIOUSNESS: not confused HENMT: COMMON NORMALS: normocephalic and atraumatic HEAD & SCALP: normocephalic and atraumatic Eye: COMMON NORMALS: no scleral icterus Neck/C-Spine: COMMON NORMALS: full ROM Lymph: LYMPHATIC: no lymphadenopathy noted Chest: COMMONS NORMALS: normal inspection of the chest Resp: COMMON NORMALS: normal respiratory effort, No retractions and clear to auscultation bilaterally EFFORT & INSPECTION: Yes able to speak in complete s entences, No tachypneic and No respiratory distress AUSCULTATION: clear to auscultation bilaterally Cardio: COMMON NORMALS: regular rate and regular rhythm RATE: regular rate RHYTHM: regular rhythm GI: COMMON NORMALS: Soft to palpation, non-tender and no masses PALPATION: Yes Soft to palpation : BLADDER/KIDNEY EXAM: Yes CVA tenderness Back/Pelvis: GENERAL BACK: Yes CVA tenderness Extremity: COMMON NORMALS: full ROM Neuro: COMMON NORMALS: patient oriented x3 Psych: COMMON NORMALS: mental status grossly normal, cooperative and normal affect Skin: COMMON NORMALS: no rashes or lesions noted GENERAL SKIN EXAM: no rashes or lesions noted Urinary Catheter Management^: [place]: Cath Placed During This Visit: yes, but has since been removed by the nurse Reason for Continuing Indwelling Catheter: Decision to DC Catheter Urinary Catheter Date of Insertion: 01/31/21 Urinary Catheter Time of Insertion: 00:45 Date Urinary Catheter Removed: 01/31/21 Time Urinary Catheter Discontinued: 00:36 Data Micro: Micro: Microbiology 01/30/21 16:00 Blood Culture - Pr eliminary Blood SPECIMEN [facility] 01/30/21 15:00 Blood Culture - Pr eliminary Blood SPECIMEN [facility] A&P Assessment and plan (1) Extrinsic ureteral obstruction: Progressive with BILATERAL involvement. Status: Acute (2) Prostate cancer: Metastatic with progression on systemic therapy having failed RRP and Salvage Radiation therapy. Status: Acute (3) Chronic cystitis: Multifactorial due to chronic foreign body (stent), dysfuntional bladder and outlet from locally invasive [employer], and demonstrating fungal and bacterial cultures. Status: Acute (4) Hydronephrosis of right kidney: More recent development. Bump in Creatinine. Status: Acute (5) Pyelonephritis: Status: Acute Consult Attestations Medical Necessity Statement: See attending Coding Level of Care Code Acute Wireless Technician for Cristy Baxter Diagnoses Extrinsic ureteral obstruction N13.5 Prostate cancer C61 Chronic cystitis N30.20 Hydronephrosis of right kidney N13.30 Pyelonephritis N12
[2021-01-31] MEDS: famotidine 20 mg/2 mL INJ IVP ×2 (06:16→19:27)
[2021-01-31] MEDS: heparin 5,000 unit/mL INJ 1 mL 5000 UNIT SUBCUT ×2 (06:16→19:27)
--- NOTE | 2021-01-31 07:15 | PC.NURSE ---
Irrigated patients ernst per doctors orders with 90mL of normal saline. All 90mL returned. Patient tolerated irrigation well.
[2021-01-31 07:26] VITALS: BP 119/67; PULSE 71; RESP 16; TEMP 37.1; O2SAT 93
[2021-01-31] MEDS: ferrous gluconate 324 mg Tablet PO ×2 (09:11→18:02)
[2021-01-31] MEDS: dexamethasone 4 mg Tablet 2 MG PO ×2 (09:12→18:01)
[2021-01-31 11:28] LABS: Basophils # 0.1 10^3/uL (0.0-0.1); Basophils % 0.4 %; Eosinophils # 0.1 10^3/uL (0.0-0.8); Eosinophils % 0.9 %; Hematocrit 30.9 % (42.0-52.0); Hemoglobin 9.7 g/dL (11.7-16.6); Lymphocytes # 1.4 10^3/uL (0.8-4.8); Mean Corpuscular HGB Conc 31.4 g/dL (30.0-36.0); Mean Corpuscular Hemoglobin 27.2 pg (28.0-34.0); Mean Corpuscular Volume 86.6 fL (80-94); Mean Platelet Volume 9.1 fL (7.4-10.4); Monocytes # 1.2 10^3/uL (0.2-0.9); Monocytes % 9.1 %; Neutrophils # 10.13 10^3/uL (1.8-7.7); Neutrophils % 78.1 %; Nucleated Red Blood Cells % 0 %; Platelet Count 224 10^3/cmm (130-400); Red Blood Count 3.57 10^6/uL (4.1-5.3); Red Cell Distribution Width 16.6 % (12.1-15.1)
[2021-01-31 11:33] VITALS: BP 115/67; PULSE 71; RESP 16; TEMP 37.2; O2SAT 94
[2021-01-31] MEDS: sodium chloride 0.9% 1,000 ML 75 ML IV (11:49)
[2021-01-31 11:54] LABS: Alanine Aminotransferase 6 U/L (0-41); Albumin Level 2.1 g/dL (3.5-5.2); Alkaline Phosphatase 50 IU/L (40-130); Anion Gap 14.4 (5-19); Aspartate Amino Transferase 12 U/L (0-40); Blood Urea Nitrogen 31 mg/dL (8-23); Calcium 6.8 mg/dL (8.5-10.5); Carbon Dioxide 17 mmol/L (22-29); Chloride 112 mmol/L (98-107); Globulin 3.2 g/dL (1.3-4.6); Glucose 115 mg/dL (65-115); Magnesium 1.4 mg/dL (1.7-2.3); Osmolality Calculated 297 mOsm/kg (285-295); Potassium 3.4 mmol/L (3.5-5.1); Sodium 140 mmol/L (136-145); Total Bilirubin 0.3 mg/dL (0.15-1.2); Total Protein 5.3 g/dL (6.6-8.7)
[2021-01-31 11:57] VITALS: BMI 30.5
--- NOTE | 2021-01-31 13:30 | PM.PN ---
Subjective Subjective: Interval history: No acute events overnight. Patient states he is feeling better today. Denies any nausea vomiting, headache. States pain is better today. Has remained afebrile and hemodynamically stable overnight. Vitals/I&O/Wt Last Vital Signs Temp 98.9 F 01/31/21 11:33 Pulse 71 01/31/21 11:33 Resp 16 01/31/21 11:33 BP 115/67 01/31/21 11:33 Pulse Ox 94 01/31/21 11:33 01/30/21 01/31/21 01/31/21 22:59 06:59 14:59 Intake Total 540 / 540 200 / 740 1240 / 1240 Output Total 175 / 175 Balance 540 / 540 25 / 565 1240 / 1240 Weight last 48 hrs Weight 91.172 kg Weight 91.535 kg Weight 92.986 kg Physical Exam Narrative: EXAM NARRATIVE: General: No acute distress, AO x3, pale, sick appearing HEENT: PERRLA, pupils bilaterally equal and reactive Chest: Normal vesicular breath sounds, no added sounds, equal good air entry bilaterally CVS: S1-S2 regular, no murmurs, no tachycardia, no gallops, no rubs Abdomen: Soft, nontender, no organomegaly, bowel sounds present, bilateral flank tenderness Neuro: No focal deficits, no facial deformity, AO x3, power 5/5 in all limbs Urinary Catheter Management^: [place]: Cath Placed During This Visit: yes, but has since been removed by the nurse Reason for Continuing Indwelling Catheter: Acute Urinary Retention or Obstruction Urinary Catheter Date of Insertion: 01/31/21 Urinary Catheter Time of Insertion: 00:45 Date Urinary Catheter Removed: 01/31/21 Time Urinary Catheter Discontinued: 00:36 Data : 01/31/21 11:10 01/31/21 11:10 Micro: Microbiology 01/30/21 21:09 MRSA Culture - Final Nose 01/30/21 15:18 Bacterial Antigens - Final Urine Kidney 01/30/21 16:00 Blood Culture - Preliminary Blood SPECIMEN COLLECTED 01/30/21 15:00 Blood Culture - Preliminary Blood SPECIMEN COLLECTED A&P Assessment and plan (1) Hydronephrosis of right kidney: Status: Acute (2) Pyelonephritis: Status: Acute (3) Status post placement of ureteral stent: Status: Acute (4) Acute kidney injury: Status: Acute (5) High anion gap metabolic acidosis: Status: Acute (6) Prostate cancer: Status: Acute Additional A&P Information 80 old gentleman past medical history of prostate cancer, left ureteral stent placement, presents to the ER today with ongoing dysuria, hematuria for last 2 weeks and has failed outpatient treatment with Levaquin and doxycycline. Pyelonephritis: Hydronephrosis of the right kidney: S/p placement of ureteral stent on the left: CT abdomen pelvis results appreciated. Check blood cultures, urine culture. Procalcitonin MRSA swab negative. On review of old urine cultures patient most recently grew yeast. Has has a history of growing Enterococcus faecalis and Pseudomonas aeruginosa in the past. Appreciate urology recommendations. For now plan is to treat conservatively and once stable plan for further interventions as possible. For now continue with vancomycin and imipenem at current dose. Continue with oral fluconazole. Renal dose vancomycin and imipenem as per creatinine clearance. Will de-escalate antibiotics as per culture results. Continue home dose of dexamethasone 2 mg p.o. twice daily to avoid adrenal insufficiency. JEANNETTE: Most likely secondary to infection along with obstructive uropathy. IV fluids with half normal saline at 75 cc/h as patient developing mild hypernatremia Monitor for fluid overload. Last echocardiogram in December 2019 shows an EF of 60% with grade 2 diastolic dysfunction with RVSP of 40 mmHg. High anion gap acidosis: Resolved. Most likely secondary to JEANNETTE. Fluid as above. We will continue to monitor BMP daily for now. Prostate cancer: For now hold off on chemotherapy oral medication. Continue with dexamethasone. Anemia: Most likely secondary to ongoing occasional hematuria along with dilution with IV fluids for now. Check iron panel, vitamin B12, folate levels. Start her oral iron supplementation. CODE STATUS: is bedside. Patient would want to be full code. Regular diet. Heparin for DVT prophylaxis for 5000 every 12. We will continue to monitor hemoglobin. If trending down we will stop prophylaxis. Attestations Medical Necessity Statement*: Requires further hospitalization for management of pyelonephritis, JEANNETTE in setting of prostate cancer and right hydroureteronephrosis Time Spent in Patient Care: Greater than 35 minutes (>than 50% of time spent in counselling and/or direct pt care on unit). Coding Level of Care Code Acute Pet Care Worker for Cristy Baxter Diagnoses Hydronephrosis of right kidney N13.30 Pyelonephritis N12 Status post placement of ureteral stent Z96.0 Acute kidney injury N17.9 High anion gap metabolic acidosis E87.2 Prostate cancer C61
[2021-01-31 14:19] LABS: Vitamin B12 449 pg/mL (232-1245)
[2021-01-31] MEDS: sodium chloride 0.45% 1,000 ML 75 ML IV (14:29)
[2021-01-31 15:12] LABS: Folate Level 4.8 ng/mL (4.5-32.2)
[2021-01-31 15:38] VITALS: BP 126/72; PULSE 73; RESP 16; TEMP 36.6; O2SAT 94
[2021-01-31] MEDS: alteplase 1 mg/mL SDV 2 mL 2 MG INTRACATH (16:50)
--- NOTE | 2021-01-31 17:19 | USCV_ITS ---
Alex Kauffman Age: 80 Gender: M : 1940 Exam Date: 01/31/2021 07:28 Ordering Phys: Thompson Grijalva MD Technologist: Mari Matute Exam Location: [facility] Indication: History of pulmonary hypertension and diastolic dysfunction BP: 114 / 65 HR: 72 Rhythm: Sinus Technical Quality: Technically difficult study MEASUREMENTS (Male / Female) Normal Values 2D ECHO LV Diastolic Diameter PLAX 3.8 cm 4.2 - 5.9 / 3.9 - 5.3 cm LV Systolic Diameter PLAX 3.0 cm LV Chamber Size 3.6 cm IVS Diastolic Thickness 2.2 cm 0.6 - 1.0 / 0.6 - 0.9 cm IVS Systolic Thickness 2.1 cm LVPW Diastolic Thickness 1.6 cm 0.6 - 1.0 / 0.6 - 0.9 cm LVPW Systolic Thickness 2.2 cm RV Chamber Size 2.0 cm LVOT Diameter 2.1 cm LV Ejection Fraction 2D Teich 45.0 % LV Ejection Fraction MOD BP 63.5 % >= 55 % LV Ejection Fraction MOD 2C 47.6 % LV Ejection Fraction 2C AL 46.9 % LA Diameter 2.9 cm LA Width 1.9 cm LA Height 4.2 cm RA Width 2.0 cm RA Height 4.1 cm Aorta at Sinotubular Diameter 2.8 cm M-MODE LV Diastolic Diameter MM 7.4 cm 4.2 - 5.9 / 3.9 - 5.3 cm LV Systolic Diameter MM 4.8 cm LV Ejection Fraction MM Teich 62.7 % IVS Diastolic Thickness MM 1.7 cm 0.6 - 1.0 / 0.6 - 0.9 cm IVS Systolic Thickness MM 1.9 cm LVPW Diastolic Thickness MM 1.4 cm 0.6 - 1.0 / 0.6 - 0.9 cm LVPW Systolic Thickness MM 2.1 cm RV Diastolic Diameter MM 1.4 cm Aortic Annulus Diameter 4.3 cm LA Ao Ratio MM 0.9 MV E Point Septal Separation 0.8 cm DOPPLER AV Peak Velocity 147.0 cm/s LVOT Peak Velocity 108.0 cm/s AV Area Cont Eq vti 2.3 cm squared AV Area Cont Eq pk 2.4 cm squared MV Area PHT 3.7 cm squared Mitral E to A Ratio 0.8 MV E' Velocity 44.0 cm/s Mitral E to MV E' Ratio 10.2 Mitral E to LV E' Lateral Ratio 12.0 Mitral E to LV E' Septal Ratio 8.9 TR Peak Velocity 223.7 cm/s TR Peak Gradient 20.0 mmHg TV Peak E Velocity 78.0 cm/s Right Atrial Pressure 3.0 mmHg Pulmonary Artery Systolic Pressu 23.0 mmHg PV Peak Velocity 123.0 cm/s RV Acceleration Time 0.1 s RV Ejection Time 0.2 s RV AcT/ET 0.4 FINDINGS Left Ventricle Normal left ventricular size and systolic function, EF 64 %. Grade I/IV diastolic dysfunction (abnormal relaxation filling pattern), normal to mildly elevated filling pressures. Mild left ventricular hypertrophy. Right Ventricle The right ventricle is normal in size and function. Right Atrium The right atrium is normal in size. Left Atrium The left atrium is normal in size. Mitral Valve Mild mitral annular calcification. Thickened mitral valve. Aortic Valve No gross abnormalities noted Tricuspid Valve Trace tricuspid valve regurgitation. Pulmonic Valve Pulmonic valve not well visualized. Pericardium Normal pericardium without effusion. Aorta Normal ascending aorta dimension. CONCLUSIONS Normal left ventricular size and systolic function, EF 64 %. Grade I/IV diastolic dysfunction (abnormal relaxation filling pattern), normal to mildly elevated filling pressures. Mild left ventricular hypertrophy. Mild mitral annular calcification. Thickened mitral valve. Possibly normal chamber sizes. No significant stenotic or regurgitant lesions. Estimated pulmonary artery peak systolic pressure was 23 mmHg, normal. Technically difficult study because of the poor ultrasonic window. Compared to the previous study from 01/13/2020, there may not be a significant change Dr Ludmila Cerda MD FAC (Electronically Signed) Final Date: 31 January 2021 12:14 S
[2021-01-31] MEDS: vancomycin 1,500 MG/300 ML PIGGYBACK 200 MG IV (18:07)
[2021-01-31 20:00] VITALS: BP 124/79; PULSE 73; RESP 18; TEMP 36.8; O2SAT 99
[2021-02-01] VITALS: BP 114/70; PULSE 72; RESP 18; TEMP 36.8; O2SAT 95
[2021-02-01 04:00] VITALS: BP 111/66; PULSE 71; RESP 16; TEMP 37; O2SAT 94
[2021-02-01] MEDS: sodium chloride 0.45% 1,000 ML 75 ML IV (05:37)
[2021-02-01] MEDS: famotidine 20 mg/2 mL INJ IVP ×2 (05:38→20:40)
[2021-02-01 06:07] LABS: Basophils # 0.1 10^3/uL (0.0-0.1); Basophils % 0.7 %; Eosinophils # 0.3 10^3/uL (0.0-0.8); Eosinophils % 3.4 %; Hematocrit 31.5 % (42.0-52.0); Hemoglobin 9.7 g/dL (11.7-16.6); Lymphocytes # 1.7 10^3/uL (0.8-4.8); Lymphocytes % 20.2 %; Mean Corpuscular HGB Conc 30.8 g/dL (30.0-36.0); Mean Corpuscular Volume 87.7 fL (80-94); Mean Platelet Volume 9.5 fL (7.4-10.4); Monocytes % 12.1 %; Neutrophils # 5.21 10^3/uL (1.8-7.7); Neutrophils % 63.2 %; Nucleated Red Blood Cells % 0 %; Platelet Count 221 10^3/cmm (130-400); Red Blood Count 3.59 10^6/uL (4.1-5.3); Red Cell Distribution Width 16.4 % (12.1-15.1); White Blood Count 8.3 10^3/uL (4.0-10.0)
[2021-02-01 06:29] LABS: Alanine Aminotransferase 6 U/L (0-41); Albumin Level 2.5 g/dL (3.5-5.2); Alkaline Phosphatase 50 IU/L (40-130); Aspartate Amino Transferase 10 U/L (0-40); Blood Urea Nitrogen 26 mg/dL (8-23); Calcium 7.7 mg/dL (8.5-10.5); Carbon Dioxide 20 mmol/L (22-29); Chloride 109 mmol/L (98-107); Globulin 3.6 g/dL (1.3-4.6); Glucose 114 mg/dL (65-115); Osmolality Calculated 292 mOsm/kg (285-295); Sodium 138 mmol/L (136-145); Total Bilirubin 0.3 mg/dL (0.15-1.2); Total Protein 6.1 g/dL (6.6-8.7)
[2021-02-01 07:48] VITALS: BP 124/69; PULSE 74; RESP 18; TEMP 36.9; O2SAT 96
[2021-02-01] MEDS: dexamethasone 4 mg Tablet 2 MG PO ×2 (08:45→18:13)
[2021-02-01] MEDS: fluconazole 100 mg Tablet PO (08:45)
[2021-02-01] MEDS: heparin 5,000 unit/mL INJ 1 mL 5000 UNIT SUBCUT ×2 (08:45→21:07)
[2021-02-01] MEDS: ferrous gluconate 324 mg Tablet PO ×2 (08:45→18:13)
[2021-02-01 10:34] LABS: Glucose Point of Care 146 mg/dL (70-110)
[2021-02-01 12:00] VITALS: BP 119/75; PULSE 74; RESP 17; TEMP 36.4; O2SAT 95
--- NOTE | 2021-02-01 12:19 | PC.CHAP ---
Pastoral Care Encounter/Spiritual Assessment Type of Contact [] Declined armored car guard and driver visit [] Patient/Family/Request visit [] Outpatient visit [] Follow-up visit [] Physician referral [] Code/Alert [XX] Routine visit [] Staff referral [] Actively dying [] Patient sleeping [] Family support [] [] Out of room [] Palliative care [] [] Receiving care in room [] Pre-surgical visit [] Trauma [] Long length of stay [] ICU visit [] Other: Relational/Emotional Strength [XX] Patient feels connected with others/family/visitors/staff [] Distress [] Loneliness/isolation [] Abandonment Spirituality of Patient [XX] Person of Namrata [XX] Attends Roman Catholic of their [place] [XX] Believes in Prayer [XX] Reads Bible or Restorationist materials [] There are Spiritual issues to be addressed Licensed Funeral Director Interventions [XX] Prayer [XX] Active listening [XX] Non-anxious presence [] Spiritual/emotional support [] Crisis/trauma care [] Spiritual counseling [] Bereavement support [] Provided bereavement packet [] Provided Bible/devotional materials [] Provided toy/stuffed animal, coloring book to patient or family member [] Provided Communion [] Anointing/Sunshine [] Salvation [XX] Completed spiritual assessment [] Other: Impact on Illness or Injury [] Angry [] Fearful [] Anxious [] Often cries [] Exhaustion [] Unable to work [] Unable to attend scientology [] Unable to walk/stand [] Unable to read [] Unable to drive [] Unable to eat/drink [] Unable to sleep [] Unable to be with family [] Patient intubated [] Other: Summary: Pt has long history of prostate cancer. Pt had acute UTI that led to admission. Pt is well supported by his family, spouse, namrata, and community. Licensed Funeral Director and pt visited about his life. Other than care for his family, he states that he has no other needs. Time spent with patient: 30 mins
--- NOTE | 2021-02-01 12:31 | P.PN_ITS ---
Subjective Subjective: Interval history: No acute events overnight. Patient has remained hemodynamically stable and afebrile. On examination sitting comfortably in chair. States he is feeling a lot better. Currently on room air saturating 95%. Denies any nausea vomiting, headache. Vitals/I&O/Wt Last Vital Signs Temp 97.6 F 02/01/21 12:00 Pulse 74 02/01/21 12:00 Resp 17 02/01/21 12:00 BP 119/75 02/01/21 12:00 Pulse Ox 95 02/01/21 12:00 01/31/21 02/01/21 02/01/21 22:59 06:59 14:59 Intake Total 506.25 / 2056.25 1233.75 / 3290.00 396.667 / 396.667 Output Total 650 / 650 950 / 1600 Balance -143.75 / 1406.25 283.75 / 1690.00 396.667 / 396.667 Weight last 48 hrs Weight 92.397 kg Weight 91.172 kg Weight 91.535 kg Weight 92.986 kg Physical Exam Narrative: EXAM NARRATIVE: General: No acute distress, AO x3, pallor present HEENT: PERRLA, pupils bilaterally equal and reactive Chest: Normal vesicular breath sounds, no added sounds, equal good air entry bilaterally CVS: S1-S2 regular, no murmurs, no tachycardia, no gallops, no rubs Abdomen: Soft, nontender, no organomegaly, bowel sounds present, mild tenderness in the right flank Neuro: No focal deficits, no facial deformity, AO x3, power 5/5 in all limbs Urinary Catheter Management^: Loredo: Cath Placed During This Visit: yes, but has since been removed by the nurse Reason for Continuing Indwelling Catheter: Acute Urinary Retention or Obstruction Urinary Catheter Date of Insertion: 01/31/21 Urinary Catheter Time of Insertion: 00:45 Date Urinary Catheter Removed: 01/31/21 Time Urinary Catheter Discontinued: 00:36 Data : 02/01/21 05:36 02/01/21 05:36 Micro: Microbiology 01/30/21 15:18 Urine Culture - Preliminary Urine,Clean Catch Yeast 01/30/21 15:00 Blood Culture - Preliminary Blood Coagulase negativ staphylococc 01/31/21 17:15 Blood Culture - Preliminary Blood SPECIMEN COLLECTED 01/30/21 16:00 Blood Culture - Preliminary Blood NEGATIVE TO DATE 01/31/21 15:46 Blood Culture - Preliminary Blood SPECIMEN COLLECTED 01/30/21 21:09 MRSA Culture - Final Nose 01/30/21 15:18 Bacterial Antigens - Final Urine Kidney A&P Assessment and plan (1) Hydronephrosis of right kidney: Status: Acute (2) Pyelonephritis: Status: Acute (3) Status post placement of ureteral stent: Status: Acute (4) Acute kidney injury: Status: Acute (5) High anion gap metabolic acidosis: Status: Acute (6) Prostate cancer: Status: Acute Additional A&P Information 80 old gentleman past medical history of prostate cancer, left ureteral stent placement, presents to the ER today with ongoing dysuria, hematuria for last 2 weeks and has failed outpatient treatment with Levaquin and doxycycline. Pyelonephritis: [place] ureteral nephrosis of the right kidney: S/p placement of ureteral stent on the left: CT abdomen pelvis results appreciated. Blood cultures from day 1, 1 out of 4 bottles positive for coag negative staph. Urine cultures growing yeast. MRSA swab negative. Repeat blood cultures negative so far. Important to rule out bacteremia because of indwelling port placement. On review of old urine cultures patient most recently grew yeast. Has has a history of growing Enterococcus faecalis and Pseudomonas aeruginosa in the past. Appreciate urology recommendations. For now plan is to treat conservatively and once stable plan for further interventions as possible. Continue with vancomycin and imipenem. Will redose as per creatinine clearance. Continue with oral fluconazole. Have requested micro lab for further sensitivity and speciation for yeast. Continue home dose of dexamethasone 2 mg p.o. twice daily to avoid adrenal insufficiency. JEANNETTE: Resolved. Creatinine 1.1 today. Patient eating well stop IV fluids. Medical reconciliation done for nephrotoxic drugs. Last echocardiogram in December 2019 shows an EF of 60% with grade 2 diastolic dysfunction with RVSP of 40 mmHg. High anion gap acidosis: Resolved. Most likely secondary to JEANNETTE. Fluid as above. We will continue to monitor BMP daily for now. Prostate cancer: For now hold off on chemotherapy oral medication. Continue with dexamethasone. Anemia: Most likely secondary to ongoing occasional hematuria along with dilution with IV fluids for now. Check iron panel, vitamin B12, folate levels. Start her oral iron supplementation. CODE STATUS: is bedside. Patient would want to be full code. Regular diet. Heparin for DVT prophylaxis for 5000 every 12. We will continue to monitor hemoglobin. If trending down we will stop prophylaxis. Attestations Medical Necessity Statement*: Patient requires further hospitalization for management of sepsis, pyelonephritis, coag negative staph bacteremia Time Spent in Patient Care: Greater than 35 minutes (>than 50% of time spent in counselling and/or direct pt care on unit) . Coding Level of Care Code Acute Television Journalist for Chg Fwd Diagnoses Hydronephrosis of right kidney N13.30 Pyelonephritis N12 Status post placement of ureteral stent Z96.0 Acute kidney injury N17.9 High anion gap metabolic acidosis E87.2 Prostate cancer C61
[2021-02-01 16:00] VITALS: BP 129/73; PULSE 74; RESP 18; TEMP 36.7; O2SAT 96
[2021-02-01] MEDS: vancomycin 1,500 MG/300 ML PIGGYBACK 200 MG IV (18:46)
[2021-02-01 20:00] VITALS: BP 148/80; PULSE 73; RESP 20; TEMP 36.6; O2SAT 95
[2021-02-02] VITALS: BP 139/74; PULSE 71; RESP 16; TEMP 36.7; O2SAT 94
[2021-02-02 04:00] VITALS: BP 128/74; PULSE 71; RESP 16; TEMP 36.6; O2SAT 94
[2021-02-02] MEDS: famotidine 20 mg/2 mL INJ IVP ×2 (06:32→18:59)
[2021-02-02] MEDS: heparin 5,000 unit/mL INJ 1 mL 5000 UNIT SUBCUT ×2 (06:32→18:58)
[2021-02-02 06:38] LABS: Basophils % 0.6 %; Eosinophils # 0.2 10^3/uL (0.0-0.8); Hematocrit 35.7 % (42.0-52.0); Hemoglobin 10.9 g/dL (11.7-16.6); Lymphocytes # 1.6 10^3/uL (0.8-4.8); Mean Corpuscular HGB Conc 30.5 g/dL (30.0-36.0); Mean Corpuscular Hemoglobin 26.8 pg (28.0-34.0); Mean Corpuscular Volume 87.7 fL (80-94); Mean Platelet Volume 9.3 fL (7.4-10.4); Monocytes # 0.7 10^3/uL (0.2-0.9); Monocytes % 10.3 %; Neutrophils # 4.11 10^3/uL (1.8-7.7); Neutrophils % 61.4 %; Nucleated Red Blood Cells % 0 %; Platelet Count 254 10^3/cmm (130-400); Red Blood Count 4.07 10^6/uL (4.1-5.3); Red Cell Distribution Width 16.7 % (12.1-15.1); White Blood Count 6.7 10^3/uL (4.0-10.0)
[2021-02-02 06:59] LABS: Alanine Aminotransferase 8 U/L (0-41); Albumin Level 2.9 g/dL (3.5-5.2); Alkaline Phosphatase 48 IU/L (40-130); Anion Gap 15.8 (5-19); Aspartate Amino Transferase 9 U/L (0-40); Blood Urea Nitrogen 19 mg/dL (8-23); Calcium 8.3 mg/dL (8.5-10.5); Carbon Dioxide 21 mmol/L (22-29); Chloride 109 mmol/L (98-107); Globulin 3.7 g/dL (1.3-4.6); Glucose 133 mg/dL (65-115); Osmolality Calculated 298 mOsm/kg (285-295); Potassium 3.8 mmol/L (3.5-5.1); Sodium 142 mmol/L (136-145); Total Bilirubin 0.2 mg/dL (0.15-1.2); Total Protein 6.6 g/dL (6.6-8.7)
[2021-02-02 07:05] VITALS: BP 146/81; PULSE 59; RESP 17; TEMP 36.8; O2SAT 96
[2021-02-02] MEDS: dexamethasone 4 mg Tablet 2 MG PO ×2 (10:27→18:21)
[2021-02-02] MEDS: ferrous gluconate 324 mg Tablet PO ×2 (10:27→18:21)
[2021-02-02] MEDS: fluconazole 100 mg Tablet PO (10:29)
--- NOTE | 2021-02-02 11:01 | PC.SOCIAL ---
IMM Update Pg.2 of IMM Updated and reviewed with patient who verbalized understanding. Copy provided.
[2021-02-02 11:20] VITALS: BP 127/75; PULSE 71; RESP 17; TEMP 36.5; O2SAT 96
[2021-02-02 15:20] VITALS: BP 147/83; PULSE 70; RESP 17; TEMP 36.5; O2SAT 96
--- NOTE | 2021-02-02 15:59 | PM.PN ---
Subjective Subjective: Interval history: Patient was seen and examined this morning. No acute event overnight. overall he Continues to do better, has continued to remain afebrile, other vitals and labs have remained stable. Vitals/I&O/Wt Last Vital Signs Temp 97.7 F 02/02/21 15:20 Pulse 70 02/02/21 15:20 Resp 17 02/02/21 15:20 BP 147/83 02/02/21 15:20 Pulse Ox 96 02/02/21 15:20 02/02/21 02/02/21 02/02/21 06:59 14:59 22:59 Intake Total 100 / 2440.000 820 / 820 Output Total 800 / 1375 Balance -700 / 1065.000 820 / 820 Weight last 48 hrs Weight 93.259 kg Weight 92.397 kg Physical Exam Const: COMMON NORMALS: patient oriented x3 HENMT: COMMON NORMALS: normocephalic, atraumatic, hearing grossly normal bilaterally and external ears normal HEAD & SCALP: normocephalic and atraumatic EXTERNAL EAR: Yes external ears normal Eye: COMMON NORMALS: no scleral icterus Resp: COMMON NORMALS: clear to auscultation bilaterally EFFORT & INSPECTION: Yes symmetric chest movement AUSCULTATION: clear to auscultation bilaterally Cardio: COMMON NORMALS: regular rate, regular rhythm, S1 normal heart sound present, S2 normal heart sound present, No gallops present (Cardio), No murmurs present (Cardio), No rub (Cardio) and Peripheral pulses 2+ throughout RATE: regular rate RHYTHM: regular rhythm HEART SOUNDS: S1 normal heart sound present and S2 normal heart sound present PERIPHERAL PULSES: Peripheral pulses 2+ throughout GI: COMMON NORMALS: Normal to inspection, nondistended, normoactive bowel sounds present, Soft to palpation, non-tender, No hepatosplenomegaly present and no masses AUSCULTATION: Yes normoactive bowel sounds PALPATION: Yes Soft to palpation and Yes No hepatosplenomegaly present RECTAL EXAM: Yes deferred Extremity: COMMON NORMALS: no clubbing, cyanosis or edema and no pedal edema Neuro: COMMON NORMALS: patient oriented x3 Urinary Catheter Management^: L[place]: Cath Placed During This Visit: yes, but has since been removed by the nurse Reason for Continuing Indwelling Catheter: Accurate Measurement of Urinary Output in Critically Ill Patients Urinary Catheter Date of Insertion: 01/31/21 Urinary Catheter Time of Insertion: 00:45 Date Urinary Catheter Removed: 01/31/21 Time Urinary Catheter Discontinued: 00:36 Data : 02/02/21 06:02 02/02/21 06:02 Micro: Microbiology 01/31/21 17:15 Blood Culture - Preliminary Blood NEGATIVE TO DATE 01/31/21 15:46 Blood Culture - Preliminary Blood NEGATIVE TO DATE 01/30/21 15:18 Urine Culture - Preliminary Urine,Clean Catch Yeast A&P Assessment and plan (1) Hydronephrosis of right kidney: Status: Acute (2) Pyelonephritis: Status: Acute (3) Status post placement of ureteral stent: Status: Acute (4) Acute kidney injury: Status: Acute (5) High anion gap metabolic acidosis: Status: Acute (6) Prostate cancer: Status: Acute Additional A&P Information 80 old gentleman past medical history of prostate cancer, left ureteral stent placement, presents to the ER today with ongoing dysuria, hematuria for last 2 weeks and has failed outpatient treatment with Levaquin and doxycycline. Pyelonephritis: [place] ureteral nephrosis of the right kidney: S/p placement of ureteral stent on the left: CT abdomen pelvis results appreciated. Blood cultures from day 1, 1 out of 4 bottles positive for coag negative staph. Urine cultures growing yeast. MRSA swab negative. Repeat blood cultures negative so far. Important to rule out bacteremia because of indwelling port placement. On review of old urine cultures patient most recently grew yeast. Has has a history of growing Enterococcus faecalis and Pseudomonas aeruginosa in the past. Appreciate urology recommendations. For now plan is to treat conservatively and once stable plan for further interventions as possible. Continue with vancomycin and imipenem. Will redose as per creatinine clearance. Continue with oral fluconazole. Have requested micro lab for further sensitivity and speciation for yeast. Continue home dose of dexamethasone 2 mg p.o. twice daily to avoid adrenal insufficiency. JEANNETTE: Resolved. Creatinine 1.1 today. Patient eating well stop IV fluids. Medical reconciliation done for nephrotoxic drugs. Last echocardiogram in December 2019 shows an EF of 60% with grade 2 diastolic dysfunction with RVSP of 40 mmHg. High anion gap acidosis: Resolved. Most likely secondary to JEANNETTE. Fluid as above. We will continue to monitor BMP daily for now. Prostate cancer: For now hold off on chemotherapy oral medication. Continue with dexamethasone. Anemia: Most likely secondary to ongoing occasional hematuria along with dilution with IV fluids for now. Check iron panel, vitamin B12, folate levels. Start her oral iron supplementation. CODE STATUS: is bedside. Patient would want to be full code. Regular diet. Heparin for DVT prophylaxis for 5000 every 12. We will continue to monitor hemoglobin. If trending down we will stop prophylaxis. Attestations Medical Necessity Statement*: Patient is to be in hospital for management of pyelonephritis. Coding Level of Care Code Acute Chief I Dispatcher for Cristy Baxter Diagnoses Hydronephrosis of right kidney N13.30 Pyelonephritis N12 Status post placement of ureteral stent Z96.0 Acute kidney injury N17.9 High anion gap metabolic acidosis E87.2 Prostate cancer C61
[2021-02-02] MEDS: vancomycin 1,500 MG/300 ML PIGGYBACK 200 MG IV (18:23)
--- NOTE | 2021-02-02 18:54 | P.PN_ITS ---
Subjective Subjective: Interval history: Has substantially improved over the last several days with normalization of his white count and creatinine. Based on those changes it is likely that the acuteness of the situation was related primarily to infection rather than an abrupt change in obstruction. His yosvany stated that she had the disc that was done in [place] rather than the [facility] that showed the changes of new onset hydronephrosis in August. We will look that into the system when available. I did review with the patient and his her options regarding that right ki dney. These include trying to unroofed the ureter with transurethral resection and place a stent and continue stent changes periodically, bilateral percutaneous tubes removing the left ureteral stent, continued expectant observation, urinary diversion via the ileal loop which would be a higher risk based on his previous radiation. Given the significant improvement I think the situation now affords the opportunity to walk through those options carefully as opposed to trying an emergent intervention. They were comfortable with that. Overall he feels much better with increased energy, resolution of the low back pain (he denies any really ongoing renal colicky type symptoms throughout this process) bladder and pelvic pain as well No fever or chills. It looks like he is being readied for discharge possibly tomorrow. I think there is some question still about which antibiotic regimen can be utilized. Vitals/I&O/Wt Last Vital Signs Temp 97.7 F 02/02/21 15:20 Pulse 70 02/02/21 15:20 Resp 17 02/02/21 15:20 BP 147/83 02/02/21 15:20 Pulse Ox 96 02/02/21 15:20 02/02/21 02/02/21 02/02/21 06:59 14:59 22:59 Intake Total 100 / 2440.000 820 / 820 340 / 1160 Output Total 800 / 1375 500 / 500 Balance -700 / 1065.000 820 / 820 -160 / 660 Weight last 48 hrs Weight 205 lb 9.6 oz Weight 203 lb 11.2 oz Physical Exam Const: COMMON NORMALS: no acute distress, alert and well nourished GENERAL APPEARANCE: well kempt and well developed ORIENTATION/CONSCIOUSNESS: not c onfused HENMT: COMMON NORMALS: normocephalic and atraumatic HEAD & SCALP: normocephalic and atraumatic Eye: COMMON NORMALS: conjunctivae normal and no scleral icterus CONJUNCTIVA: Yes conjunctivae normal Neck/C-Spine: COMMON NORMALS: full ROM Resp: COMMON NORMALS: normal respiratory effort EFFORT & INSPECTION: No labored and No Actively coughing Neuro: COMMON NORMALS: no focal motor deficits SENSORIUM/ORIENTATION: Yes alert Psych: COMMON NORMALS: mental status grossly normal APPEARANCE: Yes grossly normal and Yes well kempt ATTITUDE: Yes calm and Yes engaged Skin: COMMON NORMALS: no rashes or lesions noted and no jaundice GENERAL SKIN EXAM: no rashes or lesions noted Urinary Catheter Management^: [place]: Cath Placed During This Visit: yes, but has since been removed by the nurse Reason for Continuing Indwelling Catheter: Acute Urinary Retention or Obstruction Urinary Catheter Date of Insertion: 01/31/21 Urinary Catheter Time of Insertion: 00:45 Date Urinary Catheter Removed: 01/31/21 Time Urinary Catheter Discontinued: 00:36 Data : 02/02/21 06:02 02/02/21 06:02 Micro: Microbiology 01/31/21 17:15 Blood Culture - Preliminary Blood NEGATIVE TO DATE 01/31/21 15:46 Blood Culture - Preliminary Blood NEGATIVE TO DATE A&P Assessment and plan (1) Extrinsic ureteral obstruction: Progressive with BILATERAL involvement. Given the progression of improvement in his kidney function with antibiotic therapy I think that the findings on CT scan are more chronic but do likely represent a progression of local involvement of prostate cancer with a more impending concern in the near future. We reviewed percutaneous tubes, attempt at unroofing with transurethral resection, expectant therapy, urinary diversion via ileal loop etc. Status: Acute (2) Prostate cancer: Metastatic with progression on systemic therapy having failed RRP and Salvage Radiation therapy. 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 Status: Acute (4) Hydronephrosis of right kidney: More recent development. Bump in Creatinine on admission but likely more related to infection given the significant improvement in kidney function with hydration and antibiotics alone. Status: Acute (5) Pyelonephritis: Status: Acute Attestations Medical Necessity Statement*: See attending Coding Level of Care Code Acute Net Mobile Developer for Cristy Baxter Diagnoses Extrinsic ureteral obstruction N13.5 Prostate cancer C61 Chronic cystitis N30.20 Hydronephrosis of right kidney N13.30 Pyelonephritis N12
[2021-02-02] MEDS: vancomycin 1,000 MG in sodium chloride 0.9% 250 ML 250 MG IV (19:35)
[2021-02-02 19:45] VITALS: BP 145/78; PULSE 72; RESP 18; TEMP 36.7; O2SAT 96
[2021-02-03] VITALS: BP 123/73; PULSE 62; RESP 18; TEMP 36.8; O2SAT 97
[2021-02-03 03:40] VITALS: BP 128/73; PULSE 61; RESP 16; TEMP 36.4; O2SAT 96
[2021-02-03] MEDS: famotidine 20 mg/2 mL INJ IVP (06:13)
[2021-02-03 06:17] LABS: Basophils % 0.6 %; Eosinophils # 0.2 10^3/uL (0.0-0.8); Eosinophils % 3.5 %; Hematocrit 37.1 % (42.0-52.0); Hemoglobin 11.2 g/dL (11.7-16.6); Lymphocytes % 29.9 %; Mean Corpuscular HGB Conc 30.2 g/dL (30.0-36.0); Mean Corpuscular Hemoglobin 26.6 pg (28.0-34.0); Mean Corpuscular Volume 88.1 fL (80-94); Mean Platelet Volume 8.9 fL (7.4-10.4); Monocytes # 0.6 10^3/uL (0.2-0.9); Monocytes % 9.7 %; Neutrophils # 3.69 10^3/uL (1.8-7.7); Neutrophils % 55.7 %; Nucleated Red Blood Cells % 0 %; Platelet Count 249 10^3/cmm (130-400); Red Blood Count 4.21 10^6/uL (4.1-5.3); Red Cell Distribution Width 16.4 % (12.1-15.1); White Blood Count 6.6 10^3/uL (4.0-10.0)
[2021-02-03] MEDS: heparin 5,000 unit/mL INJ 1 mL 5000 UNIT SUBCUT (06:30)
[2021-02-03 06:35] LABS: Anion Gap 16.9 (5-19); Blood Urea Nitrogen 18 mg/dL (8-23); Calcium 8.8 mg/dL (8.5-10.5); Carbon Dioxide 21 mmol/L (22-29); Chloride 107 mmol/L (98-107); Glucose 120 mg/dL (65-115); Osmolality Calculated 295 mOsm/kg (285-295); Potassium 3.9 mmol/L (3.5-5.1); Sodium 141 mmol/L (136-145)
[2021-02-03 07:11] VITALS: BP 155/79; PULSE 70; RESP 18; TEMP 36.8; O2SAT 97
[2021-02-03] MEDS: fluconazole 100 mg Tablet PO (09:25)
[2021-02-03] MEDS: dexamethasone 4 mg Tablet 2 MG PO (09:25)
[2021-02-03] MEDS: ferrous gluconate 324 mg Tablet PO (09:25)
--- NOTE | 2021-02-03 19:14 | PM.DCS ---
Discharge Providers Date of Admission: 01/30/21 17:30 Date of Discharge: February 03, 2021 Attending Provider at Admission: Thompson Grijalva MD Attending Provider at Discharge: Esteban Castro MD Primary Care Provider: Roxann Masters APN Diagnoses at Discharge Discharge Diagnosis (1) Hydronephrosis of right kidney: Status: Acute (2) Pyelonephritis: Status: Resolved (3) Status post placement of ureteral stent: Status: Chronic (4) Acute kidney injury: Status: Resolved (5) High anion gap metabolic acidosis: Status: Resolved (6) Prostate cancer: Status: Chronic Reason for Visit Reason for Visit: LOWER ABDOMINAL PAIN Hospital Course Hospital Course 80 year old male with past medical history of prostate cancer, recurrent UTI, most recent left ureteral stent exchange in November 2020 presents to the ER with lower abdominal pain radiating to back along with dysuria and occasional hematuria for last 5 weeks.Patient states he follows up with Dr. Lloyd for urology and Dr. Alcazar for oncology. He has been having occasional episodes of nausea and vomiting along with chills had a fever up to 101.1 Fahrenheit. Blood work in the ER showed mild to 15.7, hemoglobin of 12, platelet of 283, sodium of 137, chloride of 99, BUN of 50, creatinine of 1.9, UA consistent with 3+ protein, 3+ blood, 2+ leuk esterase, more than [address] abdomen pelvis New right hydronephrosis and hydroureter. The ureter is dilated to the UVJ. No obvious calcified stone in the right kidney or right ureter.Collapsed urinary bladder with wall thickening and irregularity. Underlying cystitis or bladder mass should be a consideration. Further workup with direct visualization suggested.Double pigtail left ureteral catheter in good position. 4 mm nonobstructing stone in the lower pole the left kidney.He was admitted for the management of pyelonephritis: Hydronephrosis of the right kidney: He was kept on broad-spectrum antibiotics Vanco and imipenem, Blood cultures from day 1, 1 out of 4 bottles positive for coag negative staph. Repeat blood cultures Were negative. urine culture grew Margie albicans for which she was kept on fluconazole, and was discharged on p.o. fluconazole for additional 7 days.Sensitivities pending at the time of discharge. He was also admitted for JEANNETTE likely secondary to pyelonephritis as well as obstructive uropathy, he responded pretty well to IV hydration, JEANNETTE had resolved at the time of discharge. Patient responded well to the above medical management and was discharged in stable condition, he will continue to follow urology as an outpatient.Please see the urology consult note for the management of Extrinsic ureteral obstruction:Progressive with BILATERAL involvement. In summary. Given the progression of improvement in his kidney function with antibiotic therapy as per Dr. Lloyd findings on CT scan are more chronic but do likely represent a progression of local involvement of prostate cancer with a more impending concern in the near future. He reviewed with the patient the possible options percutaneous tubes, attempt at unroofing with transurethral resection, expectant therapy, urinary diversion via ileal loop etc. Prostate cancer: Metastatic with progression on systemic therapy having failed RRP and Salvage Radiation therapy. Locally progressive with now bilateral ureteral obstruction. Patient overall responded well to the above medical management.Patient will continue to follow Dr. Lloyd as an outpatient. Physical Exam Const: COMMON NORMALS: patient oriented x3 HENMT: COMMON NORMALS: normocephalic, atraumatic, hearing grossly normal bilaterally and external ears normal HEAD & SCALP: normocephalic and atraumatic EXTERNAL EAR: Yes external ears normal Eye: COMMON NORMALS: no scleral icterus Resp: COMMON NORMALS: clear to auscultation bilaterally EFFORT & INSPECTION: Yes symmetric chest movement AUSCULTATION: clear to auscultation bilaterally Cardio: COMMON NORMALS: regular rate, regular rhythm, S1 normal heart sound present, S2 normal heart sound present, No gallops present (Cardio), No murmurs present (Cardio), No rub (Cardio) and Peripheral pulses 2+ throughout RATE: regular rate RHYTHM: regular rhythm HEART SOUNDS: S1 normal heart sound present and S2 normal heart sound present PERIPHERAL PULSES: Peripheral pulses 2+ throughout GI: COMMON NORMALS: Normal to inspection, nondistended, normoactive bowel sounds present, Soft to palpation, non-tender, No hepatosplenomegaly present and no masses AUSCULTATION: Yes normoactive bowel sounds PALPATION: Yes Soft to palpation and Yes No hepatosplenomegaly present RECTAL EXAM: Yes deferred Extremity: COMMON NORMALS: no clubbing, cyanosis or edema and no pedal edema Neuro: COMMON NORMALS: patient oriented x3 Urinary Catheter Management^: [place]: Cath Placed During This Visit: yes, but has since been removed by the nurse Reason for Continuing Indwelling Catheter: Decision to DC Catheter Urinary Catheter Date of Insertion: 01/31/21 Urinary Catheter Time of Insertion: 00:45 Date Urinary Catheter Removed: 02/03/21 Time Urinary Catheter Discontinued: 10:54 Discharge Data Data Completed and Pending: Completed Studies During Hospitalization Category Date Time Status CT abdomen pelvis w con* [id number] Stat Cat Scan 01/30/21 14:24 Completed XR chest 1V jah ble [id number] Stat Exams 01/30/21 14:24 Completed CV echo complete* [id number] Routine Ultrasound 01/31/21 17:19 Completed Pending at discharge Category Date Time Status Blood Culture Sta t Lab 01/30/21 16:00 Results Blood Culture Sta t Lab 01/31/21 17:15 Results Miscellaneous Kristen t Routine Lab 01/30/21 15:18 Received Labs from last 24 hours 02/03/21 02/03/21 01/30/21 06:00 06:00 15:18 WBC 6.6 RBC 4.21 Hgb 11.2 L Hct 37.1 L MCV 88.1 MCH 26.6 L MCHC 30.2 RDW 16.4 H Plt Count 249 MPV 8.9 Neut % (Auto) 55.7 Lymph % (Auto) 29.9 Greer % (Auto) 9.7 Eos % (Auto) 3.5 Baso % (Auto) 0.6 Neut # (Auto) 3.69 Lymph # (Auto) 2.0 [place] # (Auto) 0.6 Eos # (Auto) 0.2 Baso # (Auto) 0.0 Nucleated RBC % (a uto) 0 Nucleated RBCs # 0.0 Sodium 141 Potassium 3.9 Chloride 107 Carbon Dioxide 21 L Anion Gap 16.9 BUN 18 Creatinine 0.9 GFR Calculation Not Reportable Glucose 120 H Calculated Osmolal ity 295 Calcium 8.8 Misc Test Referenc e Pending Vitals: Last Vital Signs Temp 98.2 F 02/03/21 07:11 Pulse 70 02/03/21 07:11 Resp 18 02/03/21 07:11 BP 155/79 02/03/21 07:11 Pulse Ox 97 02/03/21 07:11 Discharge Plan Discharge Patient Disposition: Home Condition: Stable Prescriptions: New fluconazole 200 mg tablet 200 mg PO DAILY Qty: 7 RF: 0 Continued metformin 500 mg tablet 500 mg PO DAILY RF: 0 ascorbic acid (vitamin C) 1,000 mg tablet 1 gm PO BID PRN (Reason: WHEN OFF ABX) RF: 0 Erleada 60 mg tablet 240 mg PO DAILY RF: 0 dexamethasone 2 mg tablet 2 mg PO BID RF: 0 hydrocodone-acetaminophen [Katy] 5-325 mg tablet 1 tab PO Q6H PRN (Reason: pain) Qty: 10 RF: 0 oxycodone-acetaminophen 5-325 mg Tablet 1 tab PO Q6H PRN (Reason: Pain) RF: 0 methenamine hippurate 1 gram tablet 1 g PO BID PRN (Reason: WHEN OFF ABX) RF: 0 Discontinued doxycycline hyclate 100 mg tablet 100 mg PO BID Qty: 60 RF: 1 Discharge Orders: Discharge Order (Routine); Ordered 02/03/21 Ordered By: Esteban Castro Referrals: Roxann Masters APN [Primary Care Provider] - 02/11/21 10:30 am Prema Rivera [Referring] - 2 weeks Discharge Diet: Diabetic Discharge Activity: Resume usual activity Patient Instructions: Fluconazole (By mouth), Acute Pyelonephritis (GEN), Opioid Safety Discharge Attestations Time Spent in Discharge Care*: less than 30 min Specific Discharge Activities: educating patient, educating and/or supporting family/caregiver, discussing with pcp/other providers, discussing with caseworker protective services/social workers/dc planners, documenting/other paperwork and evaluating patient/reviewing data Status at Discharge: Cognitive status at discharge: cognitively intact, Behavioral status at discharge: cooperative, Functional status at discharge: independent ambulation Overall status at discharge: patient is back to baseline Quality Metrics Clinical Quality Measures During this hospital stay, did patient experience: None Coding Level of Care Code Acute Chg DC note Diagnoses Hydronephrosis of right kidney N13.30 Pyelonephritis N12 Status post placement of ureteral stent Z96.0 Acute kidney injury N17.9 High anion gap metabolic acidosis E87.2 Prostate cancer C61
== END 2021-02-03 10:55 | disposition home or self-care (01) | DRG 690 ==
LOC: ER 14:49 → MEDSURG 18:22
PROVIDERS: Admitting Provider Student in an Organized Health Care Education/Training Program; Emergency Provider Family Medicine; PCP Nurse Practitioner; Visit Provider Internal Medicine
DX: N10 Acute pyelonephritis (principal); C79.51 Secondary malignant neoplasm of bone; C79.11 Secondary malignant neoplasm of bladder; E87.2 Acidosis; B37.49 Other urogenital candidiasis; N20.0 Calculus of kidney; N13.1 Hydronephrosis with ureteral stricture, not elsewhere classified; C61 Malignant neoplasm of prostate; Z87.440 Personal history of urinary (tract) infections; Z96.0 Presence of urogenital implants; N30.21 Other chronic cystitis with hematuria; N39.3 Stress incontinence (female) (male); Z90.79 Acquired absence of other genital organ(s); N17.9 Acute kidney failure, unspecified; Z79.899 Other long term (current) drug therapy; Z92.3 Personal history of irradiation; D64.9 Anemia, unspecified; Z79.891 Long term (current) use of opiate analgesic
CPT/HCPCS: 36415; 36416; 36591; 51702; 71045; 74177; 80048; 80053; 81001; 81003; 82607; 82746; 82962; 83540; 83550; 83605; 83735; 84100; 84145; 84153; 84443; 85025; 86403; 87040; 87086; 87106; 87205; 87641; 93005; 93306; 94664; 96365; 96367; 96372; 96375; 96402; 97116; 97161; 99215; 99291; J0743; J1450; J1642; J1644; J2270; J2405; J2997; J3370; J3490; J7030; J7050; J8540; J9202; Q9967

== ENCOUNTER → 2021-02-11 11:58 | Outpatient (BNVA) | payer MEDICARE, OTHER, SELFPAY | PROVIDERS: PCP Nurse Practitioner; Visit Provider Urology | DX: R82.81 Pyuria (principal) | CPT/HCPCS: 81003; 87086 ==

== ENCOUNTER 2021-02-24 08:36 | Inpatient (IN) | payer MEDICARE, OTHER, SELFPAY ==
[2021-02-24] VITALS (10 sets, daily range): BP systolic 96–130; BP diastolic 52–67; PULSE 73–92; RESP 15–20; TEMP 36.7–38.5; O2SAT 92–97; BMI 30.4
--- NOTE | 2021-02-24 08:37 | ED_ITS ---
HPI - Nausea/Vomiting/Diarrhea General: Chief complaint: Nausea/Vomiting/Diarrhea Stated complaint: NAUSEA, VOMIT, FEVER Time Seen by Provider: 02/24/21 08:37 History of Present Illness: HPI Narrative: 80-year-old male presents with abdominal pain fever with nausea vomiting. he denies any shortness of breath denies any cough. No diarrhea. Patient has a known history of prostate cancer. He usually self caths at home he has not cath since yesterday afternoon. MD elicited complaint: nausea and vomiting Onset (ago): hour(s) Description of vomiting: watery Associated nausea: Yes Associated abdominal pain: Yes Location of pain: Suprapubic Pain consistency: constant Severity: mild Quality: cramping Exacerbating factors: none Relieving factors: none Associated symtoms: Reports decreased urine output, fevers/chills, anorexia, malaise, myalgias, nausea and weakness; Denies altered mental status, anxiety, bloating, change in vision, chest pain, cough, diaphoresis, dizziness, dysuria, epistaxis, fatigue, fecal incontinence, headache(s), numbness, palpitations, rash, short of breath, syncope, tenesmus or tinnitus Review of Systems Const: Reports: malaise; Denies: fatigue or diaphoresis Eyes: Denies: change in vision ENMT: Denies: tinnitus or epistaxis Card: Denies: chest pain, palpitations or syncope Resp: Denies: dyspnea, productive cough or non-productive cough GI: Reports: nausea; Denies: bloating or fecal incontinence : Denies: dysuria Skin/Breast: Denies: rash or pruritus Neuro: Denies: headache(s) or dizziness Psych: Denies: anxiety PFSH ED PFSH: Medical History Acute kidney injury Chronic cystitis Extrinsic ureteral obstruction High anion gap metabolic acidosis Hydronephrosis of right kidney Male stress incontinence Prostate cancer Pyelonephritis Surgical History History of radical retropubic prostatectomy Hx of transurethral destruction of bladder lesion S/P right knee surgery Status post placement of ureteral stent Family History Mother , in her 70's CAD (coronary artery disease) Father , in his 80's No problems noted. Social History Smoking and tobacco status: never smoked Alcohol intake: never Household members: spouse Marital status: Current occupational status: retired History of recent travel: No Physical Exam Const: COMMON NORMALS: no acute distress EXAM LIMITATIONS: no altered men cedrick status GENERAL APPEARANCE: cooperative and comfortable ORIENTATION/CONSCIOUSNESS: Yes awake, Yes oriented to person, Yes oriented to place and Yes oriented to time HENMT: COMMON NORMALS: normocephalic, atraumatic, hearing grossly normal bilaterally, external ears normal, EAC's normal, TM's normal bilaterally, Normal nasal mucous membranes and turbinates present, moist oral mucous membranes and oropharynx normal HEAD & SCALP: normocephalic and atraumatic NOSE: Normal nasal mucous membranes and turbinates present EXTERNAL EAR: Yes external ears normal EXTERNAL AUDITORY CANAL: EAC's normal TYMPANIC MEMBRANE: TM's normal bilaterally Eye: COMMON NORMALS: Equal, round and reactive pupils present, EOMs intact bilaterally, conjunctivae normal and no scleral icterus CONJUNCTIVA: Yes conjunctivae normal PUPIL: Yes Equal, round and reactive pupils present Neck/C-Spine: COMMON NORMALS: full ROM, no lymphadenopathy, supple and no JVD Lymph: LYMPHATIC: no lymphadenopathy noted and no lymphedema noted Resp: COMMON NORMALS: normal respiratory effort, No retractions, No use of accessory muscles and clear to auscultation bilaterally AUSCULTATION: clear to auscultation bilaterally Cardio: COMMON NORMALS: no JVD, regular rate, regular rhythm and No murmurs present (Cardio) RATE: regular rate RHYTHM: regular rhythm GI: COMMON NORMALS: No hepatosplenomegaly present AUSCULTATION: Yes normoactive bowel sounds PALPATION: Yes Tenderness to palpation present (GI) (Suprapubic, bladder palpable 3 fingerbreadths below the umbilicus), No Guarding due to palpation present (GI) and Yes No hepatosplenomegaly present Extremity: COMMON NORMALS: normal to inspection, capillary refill normal, no clubbing, cyanosis or edema, no calf tenderness and no pedal edema Neuro: SENSORIUM/ORIENTATION: Yes oriented to person, Yes oriented to place and Yes oriented to time Skin: COMMON NORMALS: no rashes or lesions noted GENERAL SKIN EXAM: no rashes or lesions noted Course Vital Signs: Vital signs: Vital Signs Temperature 100.6 F H 02/24/21 08:37 Pulse Rate 84 02/24/21 10:23 Respiratory Rate 16 02/24/21 10:23 Blood Pressure 109/52 02/24/21 10:23 Pulse Oximetry 94 02/24/21 10:23 MDM - Nausea/Vomiting/Diarrhea MDM Narrative: Medical decision making narrative: Reviewed oncology and urology notes it looks like the patient already has a stent there is a question of compromise now from mets to the ureterovesicular junction on the right side that may also be compromised. His multiple previous urine cultures including one recently that showed yeast he is on fluconazole for the. His lactic is normal. We will start him on Primaxin and continue Diflucan IV discussed Dr. Mei orders written consult urology as well. Lab Data: Labs: Lab Results 02/24/21 02/24/21 02/24/21 Range/Units 08:57 09:00 09:00 WBC 15.2 H (4.0-10.0) 10^3/ uL RBC 4.18 (4.1-5.3) 10^6/u L Hgb 11.4 L (11.7-16.6) g/dL Hct 36.3 L (42.0-52.0) % MCV 86.8 (80-94) fL MCH 27.3 L (28.0-34.0) pg MCHC 31.4 (30.0-36.0) g/dL RDW 17.4 H (12.1-15.1) % Plt Count 177 (130-400) 10^3/c mm MPV 9.9 (7.4-10.4) fL Neut % (Auto) 85.0 % Lymph % (Auto) 6.4 % Newberry % (Auto) 7.7 % Eos % (Auto) 0.2 % Baso % (Auto) 0.2 % Neut # (Auto) 12.90 H (1.8-7.7) 10^3/u L Lymph # (Auto) 1.0 (0.8-4.8) 10^3/u L Newberry # (Auto) 1.2 H (0.2-0.9) 10^3/u L Eos # (Auto) 0.0 (0.0-0.8) 10^3/u L Baso # (Auto) 0.0 (0.0-0.1) 10^3/u L Nucleated RBC % (a uto) 0 % Nucleated RBCs # 0.0 /100WBC Sodium 131 L (136-145) mmol/L Potassium 4.1 (3.5-5.1) mmol/L Chloride 95 L (98-107) mmol/L Carbon Dioxide 18 L (22-29) mmol/L Anion Gap 22.1 H (5-19) BUN 48 H (8-23) mg/dL Creatinine 3.3 H (0.7-1.2) mg/dL GFR Calculation Not Reportable Glucose 126 H (65-115) mg/dL Calculated Osmolal ity 286 (285-295) mOsm/k g Lactic Acid (0.5-2.2) mmol/L Calcium 8.3 L (8.5-10.5) mg/dL Total Bilirubin 0.4 (0.15-1.2) mg/dL AST 9 (0-40) U/L ALT 8 (0-41) U/L Alkaline Phosphata se 47 (40-130) IU/L Total Protein 6.4 L (6.6-8.7) g/dL Albumin 3.1 L (3.5-5.2) g/dL Globulin 3.3 (1.3-4.6) g/dL Urine Color Red (Yellow) Urine Appearance Turbid (CLEAR) Urine pH Not Reportable Ur Specific Gravit y Not Reportable Urine Protein Not Reportable Urine Glucose (UA) Not Reportable Urine Ketones Not Reportable Urine Blood Not Reportable Urine Nitrate Not Reportable Urine Bilirubin Not Reportable Prot Sulfosalicyli c Acd Executive Steward Urine Urobilinogen Not Reportable Ur Leukocyte Chayito ase Not Reportable Urine RBC Not Reportable Urine WBC Not Reportable Ur Squamous Epith Cells Not Reportable Amorphous Sediment Not Reportable Urine Bacteria Not Reportable 02/24/21 Range/Units 09:00 WBC (4.0-10.0) 10^3/ uL RBC (4.1-5.3) 10^6/u L Hgb (11.7-16.6) g/dL Hct (42.0-52.0) % MCV (80-94) fL MCH (28.0-34.0) pg MCHC (30.0-36.0) g/dL RDW (12.1-15.1) % Plt Count (130-400) 10^3/c mm MPV (7.4-10.4) fL Neut % (Auto) % Lymph % (Auto) % Newberry % (Auto) % Eos % (Auto) % Baso % (Auto) % Neut # (Auto) (1.8-7.7) 10^3/u L Lymph # (Auto) (0.8-4.8) 10^3/u L Newberry # (Auto) (0.2-0.9) 10^3/u L Eos # (Auto) (0.0-0.8) 10^3/u L Baso # (Auto) (0.0-0.1) 10^3/u L Nucleated RBC % (a uto) % Nucleated RBCs # /100WBC Sodium (136-145) mmol/L Potassium (3.5-5.1) mmol/L Chloride (98-107) mmol/L Carbon Dioxide (22-29) mmol/L Anion Gap (5-19) BUN (8-23) mg/dL Creatinine (0.7-1.2) mg/dL GFR Calculation Glucose (65-115) mg/dL Calculated Osmolal ity (285-295) mOsm/k g Lactic Acid 1.8 (0.5-2.2) mmol/L Calcium (8.5-10.5) mg/dL Total Bilirubin (0.15-1.2) mg/dL AST (0-40) U/L ALT (0-41) U/L Alkaline Phosphata se (40-130) IU/L Total Protein (6.6-8.7) g/dL Albumin (3.5-5.2) g/dL Globulin (1.3-4.6) g/dL Urine Color (Yellow) Urine Appearance (CLEAR) Urine pH Ur Specific Gravit y Urine Protein Urine Glucose (UA) Urine Ketones Urine Blood Urine Nitrate Urine Bilirubin Prot Sulfosalicyli c Acd Urine Urobilinogen Ur Leukocyte Chayito ase Urine RBC Urine WBC Ur Squamous Epith Cells Amorphous Sediment Urine Bacteria Discharge Plan Discharge Patient Disposition: Admitted As Inpatient Clinical Impression: Cystitis, Acute kidney injury, Bilateral ureteral obstruction, Prostate cancer metastatic to multiple sites Condition: Stable Coding Level of Care Code ED Residential Program Director for Chg Fwd Exam Comprehensive
[2021-02-24 09:28] LABS: Basophils % 0.2 %; Eosinophils % 0.2 %; Hematocrit 36.3 % (42.0-52.0); Hemoglobin 11.4 g/dL (11.7-16.6); Lymphocytes % 6.4 %; Mean Corpuscular HGB Conc 31.4 g/dL (30.0-36.0); Mean Corpuscular Hemoglobin 27.3 pg (28.0-34.0); Mean Corpuscular Volume 86.8 fL (80-94); Mean Platelet Volume 9.9 fL (7.4-10.4); Monocytes # 1.2 10^3/uL (0.2-0.9); Monocytes % 7.7 %; Nucleated Red Blood Cells % 0 %; Platelet Count 177 10^3/cmm (130-400); Red Blood Count 4.18 10^6/uL (4.1-5.3); Red Cell Distribution Width 17.4 % (12.1-15.1); White Blood Count 15.2 10^3/uL (4.0-10.0)
[2021-02-24 09:29] LABS: Alanine Aminotransferase 8 U/L (0-41); Albumin Level 3.1 g/dL (3.5-5.2); Alkaline Phosphatase 47 IU/L (40-130); Anion Gap 22.1 (5-19); Aspartate Amino Transferase 9 U/L (0-40); Blood Urea Nitrogen 48 mg/dL (8-23); Calcium 8.3 mg/dL (8.5-10.5); Carbon Dioxide 18 mmol/L (22-29); Chloride 95 mmol/L (98-107); Globulin 3.3 g/dL (1.3-4.6); Glucose 126 mg/dL (65-115); Osmolality Calculated 286 mOsm/kg (285-295); Potassium 4.1 mmol/L (3.5-5.1); Sodium 131 mmol/L (136-145); Total Bilirubin 0.4 mg/dL (0.15-1.2); Total Protein 6.4 g/dL (6.6-8.7)
[2021-02-24 09:30] LABS: Lactic Sepsis W/Reflex 1.8 mmol/L (0.5-2.2)
[2021-02-24 09:40] LABS: Urine Appearance Turbid (CLEAR)
[2021-02-24 09:42] LABS: Add Urine Microscopic? YES; Urine Color Red (Yellow)
[2021-02-24 09:44] LABS: Add Urine Culture? Yes
--- NOTE | 2021-02-24 09:53 | CT_ITS ---
WS: [id number] CT ABDOMEN PELVIS TECHNIQUE: Noncontrast CT of the abdomen and pelvis with coronal and sagittal reformatted images. CLINICAL INFORMATION: peyleo/prostate CA/ JEANNETTE COMPARISON: January 30, 2021 DLP: 1721.[address] scans at [facility] use at least one of these dose optimization techniques: automat ed exposure control; mA and/or kV adjustment per patient size (includes targeted exams where dose is matched to clinical indication); or iterative reconstruction. FINDINGS: Double-J left pigtail catheter in good position. Mild dilatation of the left renal pelvis is unchange d. Left ureter is decompressed. Bladder is decompressed with diffuse bladder wall thickening and surr ounding induration similar to previous. No drainable abscess or fluid collection.Correlation for cyst itis. Loredo catheter in place. Findings are similar to previous. Moderate right hydronephrosis with right ureterectasis is unchanged. Ureter is dilated down to the UV J. No obstructing calculi. Prostatectomy. No fluid collections in the pelvis. Normal sigmoid colon. A few sigmoid diverticuli. N o evidence of acute diverticulitis. No evidence of high-grade small or large bowel obstruction. Mild fatty atrophy of the pancreas. Adrenal glands are normal. Noncontrast liver is normal. Normal noncontrast gallbladder. Small esophageal hiatal hernia. Fat-cont aining left inguinal hernia. Hypertrophic changes lumbar spine. Compressive atelectasis in the left g reater than right lower lobes. CT/CT abdomen pelvis wo con [id number] IMPRESSION: 1. Left double-J ureteral catheter is stable in appearance. Decompressed left ureter. 2. Bladder is decompressed with diffuse wall thickening with surrounding cassandra ration suspicious for cystitis. This is similar to previous. 3. No drainable abscess or fluid collection. 4. Prior prostatectomy. 5. Stable moderate right hydronephrosis with right ureterectasis. No visualize d obstructing calculi. This is unchanged from previous. 6. Bibasilar atelectasis left greater than right. Notified Jay Barksdale DO at 02/24/2021 10:41 AM.
[2021-02-24] MEDS: fluconazole premix 100 MG in empty flexible container 1 EACH 50 MG IV (10:45)
[2021-02-24] MEDS: sodium chloride 0.9% 1,000 ML 999 ML IV (10:45)
--- NOTE | 2021-02-24 12:28 | P.HP_ITS ---
Providers/Chief Complaint Primary Care Provider: Roxann Masters APN Chief Complaint: NAUSEA, VOMIT, FEVER History of Present Illness Alex Kauffman is a 80 year old male with history of prostate cancer as well as hydronephrosis who presents with history of not feeling quite well for 4 days. He has had some nausea, and some vomiting. He felt like he was not having good urine output so he tried to self cath himself yesterday getting some blood. Today he attempted again and did not have any significant output at all. He was worried the blood clots may be obstructing his bladder. He had had some fever at home. He had not had a cough, or shortness of breath of breath. He was having some lower abdominal fullness, which is gone away with placement of a urinary catheter in the emergency department. His nausea has improved as well. No history of Covid, exposure to it, or vaccine for it. In the emergency department he received Primaxin, saline, and fluconazole. Review of Systems General: Reports: 10 or more systems reviewed and unremarkable except in HPI and below Const: Reports: fever(s), chills and fatigue Eyes: Denies: change in vision ENMT: Denies: throat pain Card: Denies: chest pain GI: Reports: abdominal pain, nausea and vomiting : Reports: difficulty starting urination and oliguria; Denies: flank pain Musc: Denies: neck pain Skin/Breast: Denies: rash Psych: Denies: anxiety Endo: Denies: polyuria Joshua/Lymph: Denies: easy bruising All/Imm: Denies: urticaria Medications/Allergies Home Medications Medication Instructions Recorded Confirmed Last Taken Type ascorbic acid (vitamin C) 1,000 mg 1 gm PO BID PRN tab 09/20/19 02/24/21 11/12/20 History tablet metformin 500 mg tablet 500 mg PO DAILY 09/20/19 02/24/21 02/23/21 History apalutamide 60 mg tablet 240 mg PO DAILY 11/10/20 02/24/21 02/23/21 History methenamine hippurate 1 g PO BID PRN 01/30/21 02/24/21 Unknown History fluconazole 200 mg tablet 200 mg PO DAILY #10 tab 02/23/21 02/24/21 02/23/21 Rx doxycycline hyclate 100 mg PO BID 07/02/24/21 02/23/21 History Allergies Allergy/AdvReac Type Severity Reaction Status Date / Time ceftriaxone [From Rocephin] Allergy ALGY-Rash Verified 01/30/21 15:06 ciprofloxacin Allergy Unknown Verified 01/30/21 15:06 Penicillins Allergy ALGY-Rash Verified 01/30/21 15:06 Sulfa (Sulfonamide Allergy Unknown Verified 01/30/21 15:06 Antibiotics) sulfamethoxazole Allergy Unknown Verified 01/30/21 15:06 [From Bactrim] trimethoprim [From Bactrim] Allergy Unknown Verified 01/30/21 15:06 PFSH Acute PFSH: Medical History (Updated 02/24/21 @ 12:39 by Bright Waters MD) Acute kidney injury Chronic cystitis Diabetes mellitus Extrinsic ureteral obstruction High anion gap metabolic acidosis Hydronephrosis of right kidney Male stress incontinence Prostate cancer Pyelonephritis Surgical History (Updated 02/24/21 @ 12:31 by Bright Waters MD) History of radical retropubic prostatectomy Hx of transurethral destruction of bladder lesion S/P right knee surgery Status post placement of ureteral stent Left side Family History Mother , in her 70's CAD (coronary artery disease) Father , in his 80's No problems noted. Social History Smoking and tobacco status: never smoked Alcohol intake: never Household members: spouse Marital status: Current occupational status: retired History of recent travel: No Vitals/I&O/Wt Last Vital Signs Temp 100.6 F H 02/24/21 08:37 Pulse 80 02/24/21 11:23 Resp 15 02/24/21 11:23 BP 130/60 02/24/21 11:23 Pulse Ox 94 02/24/21 11:23 Weight last 48 hrs Weight 90.718 kg Physical Exam Narrative: EXAM NARRATIVE: General exam is an elderly white male, no apparent distress HEENT: Atraumatic and normocephalic. Oropharynx clear. Neck is supple no lymphadenopathy or thyromegaly Cardiovascular regular rate and rhythm without murmur Lungs clear no wheezing or crackles Abdomen is soft with positive bowel sounds. No obvious organomegaly demonstrates blood-tinged urine Extremities no cyanosis clubbing or edema Neuro no focal deficits Skin no rash Urinary Catheter Management^: Loredo: Cath Placed During This Visit: yes Urinary Catheter Date of Insertion: 02/24/21 Urinary Catheter Time of Insertion: 08:45 Data : 02/24/21 09:00 02/24/21 09:00 Micro: Microbiology 02/24/21 10:19 Blood Culture - Preliminary Blood SPECIMEN COLLECTED 02/24/21 09:50 Blood Culture - Preliminary Blood SPECIMEN COLLECTED Other data: CT abdomen pelvis demonstrates stable moderate right hydronephrosis, left with stent. Bladder is decompressed. Prior prostate removal. Bibasilar atelectasis. Calcium 8.3 LFTs normal Albumin 3.1 Urinalysis unable to be reported secondary to turbid nature Blood and urine cultures ordered A&P Assessment and plan (1) Cystitis: Complicated UTI, acute, secondary to hydronephrosis, previous left ureteral stenting, acute kidney injury. Secondary to multiple resistant organisms previously will initiate imipenem. This was discussed with the emergency department physician and initiated in the ER. Dose will need to be adjusted for renal function, and renal function is likely to be dynamic. Urine culture Blood culture urology consultation Note that he has hematuria. Hold any anticoagulation secondary to this pending approval/clearance per urology. It appears he may be on fluconazole secondary to concern of candidal UTI in the past. We will continue for now. Status: Acute (2) Acute kidney injury: Likely secondary to UTI, urinary retention, poor intake. Continue hydration Recheck renal function in the morning Status: Acute (3) Hydronephrosis: Right hydronephrosis is still present. Urology consultation Note the patient has previous history of left hydronephrosis as well for which he was stented. Status: Acute (4) Hyponatremia: Mild. Likely secondary to renal failure. Follow with routine lab work tomorrow. Status: Acute (5) Diabetes mellitus: Sliding scale insulin Status: Acute Additional A&P Information History of prostate cancer Full code SCDs for DVT prophylaxis. Anticoagulation contraindicated secondary to hematuria Attestations Medical Necessity Statement*: Will need greater than 2 midnight stay secondary to complicated UTI associated with acute kidney injury. Time Spent in Patient Care: Greater than 35 minutes Coding Level of Care Code Acute Business Rules Analyst for [facility] Diagnoses Cystitis N30.90 Acute kidney injury N17.9 Hydronephrosis N13.30 Hyponatremia E87.1 Diabetes mellitus E11.9
--- NOTE | 2021-02-24 12:33 | XRR_ITS ---
PROCEDURE INFORMATION: Exam: XR Chest Exam date and time: 02/24/2021 12:33 PM Age: 80 years old Clinical indication: Fever; Patient HX: History--urinary infection TECHNIQUE: Imaging protocol: XR of the chest. Views: 1 view. COMPARISON: CR XR chest 1V portable [id number] 01/30/2021 2:55 PM FINDINGS: Tubes, catheters and devices: A right subclavian MediPort catheter is present with the tip projecting in the SVC. Lungs: No acute pulmonary infiltrates are seen. Pleural spaces: Unremarkable. No pleural effusion. No pneumothorax. Heart/Mediastinum: The heart is probably normal for the AP view and level of inspiration. Bones/joints: Unremarkable. XR/XR chest 1V portable [id number] IMPRESSION: No acute abnormalities are seen in the chest.
[2021-02-24 15:53] LABS: SARS Covid-2 Antigen Negative (Negative)
[2021-02-24] MEDS: sodium chloride 0.9% 1,000 ML 100 ML IV (17:03)
[2021-02-24] MEDS: acetaminophen 325 mg Tablet 650 MG PO (18:37)
--- NOTE | 2021-02-24 20:41 | P.CONIM_ITS ---
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 Ultimately occluded his left ureteral orifice and required stenting after deep resection transurethrally. Stent has been maintained and changed on a regular basis. Further complicated by recurrent urinary tract infections both bacterial and yeast historically. Recently noted to have new onset hydronephrosis during work-up for sepsis. In retrospect this has been identified back in August 2020 when evaluated in [place] on a staging study. At recent hospitalization where this was discovered it was concerned that this was a progression of his prostate cancer but with treatment of UTI hydration etc. his creatinine returned basically back to baseline. During this hospital stay he had admission his creatinine was noted to be 3.3 Additional work-up included a CT scan today that showed stable moderate right hydronephrosis with right ureterectasis. This represented no significant change. Review of Systems Const: Reports: fever(s), chills, body aches and malaise Eyes: Denies: change in vision or eye discharge ENMT: Denies: hoarseness Card: Denies: chest pain or palpitations Resp: Denies: dyspnea or wheezing GI: Reports: abdominal pain, nausea and vomiting; Denies: diarrhea : Reports: difficulty urinating, urinary incontinence, hematuria and other (Incontinence); Denies: flank pain Musc: Denies: joint redness or joint warmth Skin/Breast: Denies: rash or jaundice Neuro: Denies: confusion or Slurred speech present Psych: Denies: anxiety Endo: Denies: flushing Joshua/Lymph: Reports: easy bleeding All/Imm: Denies: urticaria or acute wheezing Meds/Allergies Home Medications and Allergies Home Medications Medication Instructions Recorded Confirmed Last Taken Type ascorbic acid (vitamin C) 1,000 mg 1 gm PO BID PRN tab 09/20/19 02/24/21 11/12/20 History tablet metformin 500 mg tablet 500 mg PO DAILY 09/20/19 02/24/21 02/23/21 History apalutamide 60 mg tablet 240 mg PO DAILY 11/10/20 02/24/21 02/23/21 History methenamine hippurate 1 g PO BID PRN 01/30/21 02/24/21 Unknown History fluconazole 200 mg tablet 200 mg PO DAILY #10 tab 02/23/21 02/24/21 02/23/21 Rx doxycycline hyclate 100 mg PO BID 02/24/21 02/24/21 02/23/21 History Allergies Allergy/AdvReac Type Severity Reaction Status Date / Time ceftriaxone [From Rocephin] Allergy ALGY-Rash Verified 01/30/21 15:06 ciprofloxacin Allergy Unknown Verified 01/30/21 15:06 Penicillins Allergy ALGY-Rash Verified 01/30/21 15:06 Sulfa (Sulfonamide Allergy Unknown Verified 01/30/21 15:06 Antibiotics) sulfamethoxazole Allergy Unknown Verified 01/30/21 15:06 [From Bactrim] trimethoprim [From Bactrim] Allergy Unknown Verified 01/30/21 15:06 Current Medications Current Medications Generic Name Dose Route Start Last Admin Trade Name Freq PRN Reason Stop Dose Admin Acetaminophen 650 mg 02/24/21 16:19 02/24/21 18:37 Acetaminophen 325 Mg Tablet PO 650 mg Q6H PRN Administration Mild/Mod Pain Or Temp >/= 101 Fluconazole 100 mg/ N/A 50 mls @ 50 mls/hr 02/24/21 10:30 02/24/21 11:45 IV Infused Q24H EBER Infusion Sodium Chloride 1,000 mls @ 100 mls/hr 02/24/21 16:19 02/24/21 17:03 Sodium Chloride 0.9% IV 100 mls/hr .Q10H EBER Administration Insulin Aspart 0 unit 02/24/21 18:00 02/24/21 17:22 Insulin Aspart 100 Unit/1 Ml SUBCUT Not Given WM&BEDTIME EBER Protocol PFSH Acute PFSH: Medical History (Updated 02/24/21 @ 20:47 by Jasper Lloyd MD) Acute kidney injury Chronic cystitis Diabetes mellitus Extrinsic ureteral obstruction High anion gap metabolic acidosis Hydronephrosis of right kidney Male stress incontinence Prostate cancer Pyelonephritis Surgical History History of radical retropubic prostatectomy Hx of transurethral destruction of bladder lesion S/P right knee surgery Status post placement of ureteral stent Left side Family History Mother , in her 70's CAD (coronary artery disease) Father , in his 80's No problems noted. Social History Smoking and tobacco status: never smoked Alcohol intake: never Household members: spouse Marital status: Current occupational status: retired History of recent travel: No Vitals/I&O/Wt Last Vital Signs Temp 99.8 F H 02/24/21 19:30 Pulse 79 02/24/21 19:30 Resp 18 02/24/21 19:30 BP 96/58 02/24/21 19:30 Pulse Ox 92 02/24/21 19:30 02/24/21 02/24/21 02/24/21 06:59 14:59 22:59 Intake Total 1150 / 1150 Output Total 1500 / 1500 Balance 1150 / 1150 -1500 / -350 Weight last 48 hrs Weight 200 lb Physical Exam Narrative: EXAM NARRATIVE: Sleepy. Arousable. No obvious distress. Pleasant Abdomen is soft. No palpable masses. Urine is clearing appropriately. No labored respiration. Regular cardiac rate No CVA tenderness No focal neurologic deficits. Good range of motion lower extremities No gross urologic deformities. Urinary Catheter Management^: [place]: Cath Placed During This Visit: yes, but has since been removed by the nurse Reason for Continuing Indwelling Catheter: Acute Urinary Retention or Obstruction Urinary Catheter Date of Insertion: 02/24/21 Urinary Catheter Time of Insertion: 08:45 Date Urinary Catheter Removed: 02/24/21 Time Urinary Catheter Discontinued: 18:22 Data Micro: Micro: Microbiology 02/24/21 10:19 Blood Culture - Pr eliminary Blood SPECIMEN [facility] 02/24/21 09:50 Blood Culture - Pr eliminary Blood SPECIMEN [facility] A&P Assessment and plan (1) Prostate cancer metastatic to multiple sites: Status: Acute (2) Bilateral ureteral obstruction: Status: Acute (3) Acute kidney injury: Status: Acute (4) Cystitis: Status: Acute (5) Hydronephrosis: Status: Acute (6) Extrinsic ureteral obstruction: Status: Acute Consult Attestations Medical Necessity Statement: See attending Coding Level of Care Code Acute Interactive Web Developer for Chg Fwd Diagnoses Prostate cancer metastatic to multiple sites C61 Bilateral ureteral obstruction N13.5 Acute kidney injury N17.9 Cystitis N30.90 Hydronephrosis N13.30 Extrinsic ureteral obstruction N13.5
[2021-02-24 21:12] LABS: Glucose Point of Care 148 mg/dL (70-110)
[2021-02-25 03:10] VITALS: BP 104/57; PULSE 68; RESP 16; TEMP 37.4; O2SAT 92
[2021-02-25] MEDS: sodium chloride 0.9% 1,000 ML 100 ML IV (03:48)
[2021-02-25 06:26] LABS: Glucose Point of Care 130 mg/dL (70-110)
[2021-02-25 07:05] LABS: Basophils # 0.1 10^3/uL (0.0-0.1); Basophils % 0.4 %; Eosinophils # 0.2 10^3/uL (0.0-0.8); Eosinophils % 1.9 %; Hematocrit 32.5 % (42.0-52.0); Hemoglobin 10.3 g/dL (11.7-16.6); Lymphocytes # 1.2 10^3/uL (0.8-4.8); Lymphocytes % 10.5 %; Mean Corpuscular HGB Conc 31.7 g/dL (30.0-36.0); Mean Corpuscular Hemoglobin 27.8 pg (28.0-34.0); Mean Corpuscular Volume 87.8 fL (80-94); Mean Platelet Volume 10.3 fL (7.4-10.4); Monocytes # 0.9 10^3/uL (0.2-0.9); Monocytes % 7.6 %; Neutrophils # 8.87 10^3/uL (1.8-7.7); Neutrophils % 79.3 %; Nucleated Red Blood Cells % 0 %; Platelet Count 169 10^3/cmm (130-400); Red Cell Distribution Width 17.5 % (12.1-15.1); White Blood Count 11.2 10^3/uL (4.0-10.0)
[2021-02-25 07:26] LABS: Blood Urea Nitrogen 37 mg/dL (8-23); Calcium 7.9 mg/dL (8.5-10.5); Carbon Dioxide 18 mmol/L (22-29); Chloride 102 mmol/L (98-107); Glucose 116 mg/dL (65-115); Osmolality Calculated 292 mOsm/kg (285-295); Sodium 136 mmol/L (136-145)
[2021-02-25 07:30] LABS: Anion Gap 19.3 (5-19); Potassium 3.3 mmol/L (3.5-5.1)
[2021-02-25] MEDS: fluconazole 100 mg Tablet 200 MG PO (08:09)
[2021-02-25 08:41] VITALS: BP 134/56; PULSE 86; RESP 17; TEMP 37.1; O2SAT 92
[2021-02-25] MEDS: potassium chloride ER 20 mEq Tablet 40 MEQ PO (09:19)
--- NOTE | 2021-02-25 10:15 | PC.CHAP ---
Pastoral Care Encounter/Spiritual Assessment Type of Contact [] Declined intervention specialist visit [] Patient/Family/Request visit [] Outpatient visit [] Follow-up visit [] Physician referral [] Code/Alert [x] Routine visit [] Staff referral [] Actively dying [x] Patient sleeping [] Family support [] [] Out of room [] Palliative care [] [] Receiving care in room [] Pre-surgical visit [] Trauma [] Long length of stay [] ICU visit [] Other: Relational/Emotional Strength [] Patient feels connected with others/family/visitors/staff [] Distress [] Loneliness/isolation [] Abandonment Spirituality of Patient [] Person of [place] [] Attends Congregational of their [place] [] Believes in Prayer [] Reads Bible or Restorationist materials [] There are Spiritual issues to be addressed Platinumsmith Interventions [x] Prayer [] Active listening [] Non-anxious presence [] Spiritual/emotional support [] Crisis/trauma care [] Spiritual counseling [] Bereavement support [] Provided bereavement packet [] Provided Bible/devotional materials [] Provided toy/stuffed animal, coloring book to patient or family member [] Provided Communion [] Anointing/[place] [] Salvation [x] Completed spiritual assessment [] Other: Impact on Illness or Injury [] Angry [] Fearful [] Anxious [] Often cries [] Exhaustion [] Unable to work [] Unable to attend scientologist [] Unable to walk/stand [] Unable to read [] Unable to drive [] Unable to eat/drink [] Unable to sleep [] Unable to be with family [] Patient intubated [] Other: Summary Time spent with patient
[2021-02-25] MEDS: vancomycin 1,250 MG/250 ML PIGGYBACK 250 MG IV (10:58)
[2021-02-25 11:15] LABS: Glucose Point of Care 143 mg/dL (70-110)
[2021-02-25 12:18] VITALS: BP 134/75; PULSE 80; RESP 15; TEMP 36.7; O2SAT 94
[2021-02-25] MEDS: fluconazole premix 100 MG in empty flexible container 1 EACH 50 MG IV (12:31)
--- NOTE | 2021-02-25 13:11 | PM.PN ---
Subjective Subjective: Interval history: Alex reports he feels little bit better. Denies any specific concerns tonight. Abdomen does not hurt significantly today. Wondering if he can eat more. Medications: Reviewed: Yes Vitals/I&O/Wt Last Vital Signs Temp 98.0 F 02/25/21 12:18 Pulse 80 02/25/21 12:18 Resp 15 02/25/21 12:18 BP 134/75 02/25/21 12:18 Pulse Ox 94 02/25/21 12:18 02/24/21 02/25/21 02/25/21 22:59 06:59 14:59 Intake Total 100 / 1250 1000 / 2250 825 / 825 Output Total 1500 / 1500 950 / 2450 Balance -1400 / -250 50 / -200 825 / 825 Weight last 48 hrs Weight 90.718 kg Physical Exam Narrative: EXAM NARRATIVE: General exam is an elderly white male, no apparent distress Neck is supple no lymphadenopathy or thyromegaly Cardiovascular regular rate and rhythm without murmur Lungs clear no wheezing or crackles Abdomen is soft with positive bowel sounds. No obvious organomegaly demonstrates Loredo, much less blood than yesterday Extremities no cyanosis clubbing or edema Urinary Catheter Management^: [place]: Cath Placed During This Visit: yes, but has since been removed by the nurse Reason for Continuing Indwelling Catheter: Acute Urinary Retention or Obstruction Urinary Catheter Date of Insertion: 02/24/21 Urinary Catheter Time of Insertion: 08:45 Date Urinary Catheter Removed: 02/24/21 Time Urinary Catheter Discontinued: 18:22 Data : 02/25/21 05:23 02/25/21 05:23 Micro: Microbiology 02/24/21 08:57 Urine Culture - Preliminary Urine,Clean Catch Yeast species 02/24/21 10:19 Blood Culture - Preliminary Blood NEGATIVE TO DATE 02/25/21 09:38 Blood Culture - Preliminary Blood SPECIMEN COLLECTED 02/25/21 09:30 Blood Culture - Preliminary Blood SPECIMEN COLLECTED 02/24/21 09:50 Blood Culture - Preliminary Blood A&P Assessment and plan (1) Cystitis: Complicated UTI, acute, secondary to hydronephrosis, previous left ureteral stenting, acute kidney injury. Secondary to multiple resistant organisms previously imipenem was initiated. Vancomycin added secondary to 1/4 blood culture positive for gram-positive organisms. Repeat blood culture Urology consultation appreciated It appears he may be on fluconazole secondary to concern of candidal UTI in the past. We will continue for now. Change to IV as urine culture is growing yeast. Status: Acute (2) Acute kidney injury: Likely secondary to UTI, urinary retention, poor intake. Appears to be improving Continue hydration, reduce fluids slightly to 75 cc an hour. Recheck renal function in the morning Status: Acute (3) Hydronephrosis: Right hydronephrosis is still present. Urology consultation appreciated Note the patient has previous history of left hydronephrosis as well for which he was stented. Status: Acute (4) Hyponatremia: Mild. Likely secondary to renal failure. This has resolved Status: Acute (5) Diabetes mellitus: Sliding scale insulin Status: Acute Additional A&P Information History of prostate cancer Full code SCDs for DVT prophylaxis. Anticoagulation contraindicated secondary to hematuria Attestations Medical Necessity Statement*: Needs continued hospitalization for IV antibiotics secondary to complicated UTI, renal failure. Coding Level of Care Code Acute Director Of Broadcast for [facility] Fwd Diagnoses Cystitis N30.90 Acute kidney injury N17.9 Hydronephrosis N13.30 Hyponatremia E87.1 Diabetes mellitus E11.9
[2021-02-25] MEDS: sodium chloride 0.9% 1,000 ML 75 ML IV (14:43)
[2021-02-25 16:46] VITALS: BP 121/73; PULSE 81; RESP 18; TEMP 36.8; O2SAT 95
[2021-02-25 17:15] LABS: Glucose Point of Care 123 mg/dL (70-110)
[2021-02-25 19:45] VITALS: BP 115/65; PULSE 79; RESP 18; TEMP 37.8; O2SAT 93
--- NOTE | 2021-02-25 20:31 | PM.PN ---
Subjective Subjective: Interval history: Urology follow-up: Hospital day #2 All parameters look better today. Creatinine has decreased from 3.3-2.2. He says he is feeling better. No renal colicky type symptoms. Urine is clearing appropriately and catheter is functioning well. Still having leaking around the catheter which is pretty normal for him given his defunctionalized urethra. Recommend continue medical therapy, maintaining catheter (patient was having repetitive failures and able to drain his bladder with self-catheterization at home prior to admission) We will put off a decision regarding percutaneous nephrostomy tubes for now as long as his creatinine continues to improve. Discussed his case with Dr. Waters today regarding medical therapy for infection catheter management etc. Vitals/I&O/Wt Last Vital Signs Temp 100.0 F H 02/25/21 19:45 Pulse 79 02/25/21 19:45 Resp 18 02/25/21 19:45 BP 115/65 02/25/21 19:45 Pulse Ox 93 02/25/21 19:45 02/25/21 02/25/21 02/25/21 06:59 14:59 22:59 Intake Total 1000 / 2250 2355 / 2355 235 / 2590 Output Total 950 / 2450 1800 / 1800 Balance 50 / -200 2355 / 2355 -1565 / 790 Weight last 48 hrs Weight 200 lb Physical Exam Const: COMMON NORMALS: no acute distress, alert and well nourished GENERAL APPEARANCE: well kempt and well developed ORIENTATION/CONSCIOUSNESS: not confused HENMT: COMMON NORMALS: normocephalic and atraumatic HEAD & SCALP: normocephalic and atraumatic Eye: COMMON NORMALS: conjunctivae normal and no scleral icterus CONJUNCTIVA: Yes conjunctivae normal Neck/C-Spine: COMMON NORMALS: full ROM Resp: COMMON NORMALS: normal respiratory effort EFFORT & INSPECTION: No labored and No Actively coughing Neuro: SENSORIUM/ORIENTATION: Yes alert Psych: COMMON NORMALS: mental status grossly normal APPEARANCE: Yes grossly normal and Yes well kempt ATTITUDE: Yes calm and Yes engaged Skin: COMMON NORMALS: no rashes or lesions noted and no jaundice GENERAL SKIN EXAM: no rashes or lesions noted Urinary Catheter Management^: Loredo: Cath Placed During This Visit: yes, but has since been removed by the nurse Reason for Continuing Indwelling Catheter: Acute Urinary Retention or Obstruction Urinary Catheter Date of Insertion: 02/24/21 Urinary Catheter Time of Insertion: 08:45 Date Urinary Catheter Removed: 02/24/21 Time Urinary Catheter Discontinued: 18:22 Data : 02/25/21 05:23 02/25/21 05:23 Micro: Microbiology 02/24/21 09:50 Blood Culture - Preliminary Blood 02/24/21 08:57 Urine Culture - Preliminary Urine,Clean Catch Yeast species 02/24/21 10:19 Blood Culture - Preliminary Blood NEGATIVE TO DATE 02/25/21 09:38 Blood Culture - Preliminary Blood SPECIMEN COLLECTED 02/25/21 09:30 Blood Culture - Preliminary Blood SPECIMEN COLLECTED A&P Assessment and plan (1) Extrinsic ureteral obstruction: Creatinine is improving as it did last month when he had another septic episode. There has been no specific addressing of the right distal ureteral obstruction but he is likely going to require percutaneous nephrostomy tubes for renal sparing moving forward. Multiple conversations previously and ongoing regarding this dilemma Status: Acute (2) Prostate cancer metastatic to multiple sites: Status: Acute (3) Cystitis: Status: Acute (4) Acute kidney injury: Status: Acute Attestations Medical Necessity Statement*: See attending Coding Level of Care Code Acute Assistant Teacher Primary for Cristy Baxter Diagnoses Extrinsic ureteral obstruction N13.5 Prostate cancer metastatic to multiple sites C61 Cystitis N30.90 Acute kidney injury N17.9
[2021-02-25 20:53] LABS: Glucose Point of Care 135 mg/dL (70-110)
[2021-02-26] VITALS (7 sets, daily range): BP systolic 107–135; BP diastolic 61–80; PULSE 68–85; RESP 16–18; TEMP 36.3–37.4; O2SAT 93–96
[2021-02-26] MEDS: sodium chloride 0.9% 1,000 ML 75 ML IV (05:08)
[2021-02-26] MEDS: fluconazole premix 200 MG/100 ML PREMIX 100 MG IV (06:20)
[2021-02-26 06:34] LABS: Glucose Point of Care 129 mg/dL (70-110)
--- NOTE | 2021-02-26 06:38 | PC.NURSE ---
shift note patient cooperative, alert and oriented x4, denied pain, slept off and on throughout the noc, verbalized this is just not my bed you know . continued leakage around urinary cath
[2021-02-26 07:16] LABS: Basophils % 0.6 %; Eosinophils # 0.4 10^3/uL (0.0-0.8); Eosinophils % 4.9 %; Hematocrit 32.7 % (42.0-52.0); Lymphocytes # 1.4 10^3/uL (0.8-4.8); Lymphocytes % 20.2 %; Mean Corpuscular HGB Conc 30.6 g/dL (30.0-36.0); Mean Corpuscular Hemoglobin 27.2 pg (28.0-34.0); Mean Corpuscular Volume 89.1 fL (80-94); Mean Platelet Volume 9.8 fL (7.4-10.4); Monocytes # 0.6 10^3/uL (0.2-0.9); Monocytes % 8.4 %; Neutrophils # 4.68 10^3/uL (1.8-7.7); Neutrophils % 65.6 %; Nucleated Red Blood Cells % 0 %; Platelet Count 173 10^3/cmm (130-400); Red Blood Count 3.67 10^6/uL (4.1-5.3); Red Cell Distribution Width 17.5 % (12.1-15.1); White Blood Count 7.1 10^3/uL (4.0-10.0)
[2021-02-26 07:34] LABS: Anion Gap 15.4 (5-19); Blood Urea Nitrogen 22 mg/dL (8-23); Calcium 7.7 mg/dL (8.5-10.5); Carbon Dioxide 19 mmol/L (22-29); Chloride 110 mmol/L (98-107); Glucose 125 mg/dL (65-115); Magnesium 1.6 mg/dL (1.7-2.3); Osmolality Calculated 297 mOsm/kg (285-295); Potassium 3.4 mmol/L (3.5-5.1); Sodium 141 mmol/L (136-145)
[2021-02-26 07:37] LABS: Creatinine Clr Calc Pharmacy 50.3949
[2021-02-26] MEDS: magnesium sulfate premix 2 GM/50 ML PIGGYBACK IV (08:44)
[2021-02-26] MEDS: potassium chloride ER 20 mEq Tablet 40 MEQ PO (08:44)
[2021-02-26] MEDS: vancomycin 1,250 MG/250 ML PIGGYBACK 250 MG IV (11:13)
[2021-02-26 11:46] LABS: Glucose Point of Care 163 mg/dL (70-110)
--- NOTE | 2021-02-26 14:05 | PM.PN ---
Subjective Subjective: Interval history: Alex feels like he is doing better. No significant abdominal pain. Denies any chest pain or shortness of breath. Medications: Reviewed: Yes Vitals/I&O/Wt Last Vital Signs Temp 98.2 F 02/26/21 11:28 Pulse 85 02/26/21 11:28 Resp 18 02/26/21 11:28 BP 129/77 02/26/21 11:28 Pulse Ox 96 02/26/21 11:28 02/25/21 02/26/21 02/26/21 22:59 06:59 14:59 Intake Total 235 / 2590 1100 / 3690 1431.25 / 1431.25 Output Total 1800 / 1800 575 / 2375 Balance -1565 / 790 525 / 1315 1431.25 / 1431.25 Physical Exam Narrative: EXAM NARRATIVE: General exam no distress Neck is supple no lymphadenopathy or thyromegaly Cardiovascular regular rate and rhythm without murmur Lungs clear no wheezing or crackles Abdomen is soft with positive bowel sounds. No obvious organomegaly demonstrates Loredo Extremities no cyanosis clubbing or edema Urinary Catheter Management^: [place]: Cath Placed During This Visit: yes, but has since been removed by the nurse Reason for Continuing Indwelling Catheter: Other Urinary Catheter Date of Insertion: 02/24/21 Urinary Catheter Time of Insertion: 08:45 Date Urinary Catheter Removed: 02/24/21 Time Urinary Catheter Discontinued: 18:22 Data : 02/26/21 06:05 02/26/21 06:05 Micro: Microbiology 02/25/21 09:38 Blood Culture - Preliminary Blood NEGATIVE TO DATE 02/25/21 09:30 Blood Culture - Preliminary Blood NEGATIVE TO DATE 02/24/21 09:50 Blood Culture - Preliminary Blood Coagulase negativ staphylococc 02/24/21 08:57 Urine Culture - Preliminary Urine,Clean Catch Yeast species 02/24/21 10:19 Blood Culture - Preliminary Blood NEGATIVE TO DATE A&P Assessment and plan (1) Cystitis: Complicated UTI, acute, secondary to hydronephrosis, previous left ureteral stenting, acute kidney injury. Secondary to multiple resistant organisms previously imipenem was initiated. Vancomycin added secondary to 2/4 blood culture positive for gram-positive organisms. This appears to be a coag negative staph. Await full identification and sensitivities but is likely to be contaminant Repeat blood culture Urology consultation appreciated It appears he may be on fluconazole secondary to concern of candidal UTI in the past. Continue for now. Changed to IV as urine culture is growing yeast. Status: Acute (2) Acute kidney injury: Likely secondary to UTI, urinary retention, poor intake. Appears to be improving Renal function greatly improved today Discontinue fluids at this time and continue to follow closely Status: Acute (3) Hydronephrosis: Right hydronephrosis is still present. Urology consultation appreciated Note the patient has previous history of left hydronephrosis as well for which he was stented. Continuing to manage medically currently Status: Acute (4) Hyponatremia: Mild. Likely secondary to renal failure. This has resolved Status: Acute (5) Diabetes mellitus: Sliding scale insulin Status: Acute Additional A&P Information Hypokalemia, supplement history of prostate cancer Full code SCDs for DVT prophylaxis. As hematuria has cleared initiate heparin for DVT prophylaxis Possible discharge tomorrow if continues to improve Attestations Medical Necessity Statement*: Needs continued hospitalization for IV antibiotics secondary to complicated UTI Coding Level of Care Code Acute Soa Engineer for [facility] [employer] Diagnoses Cystitis N30.90 Acute kidney injury N17.9 Hydronephrosis N13.30 Hyponatremia E87.1 Diabetes mellitus E11.9
[2021-02-26] MEDS: heparin 5,000 unit/mL INJ 1 mL 5000 UNIT SUBCUT (14:33)
[2021-02-26 16:46] LABS: Glucose Point of Care 118 mg/dL (70-110)
[2021-02-26 20:28] LABS: Glucose Point of Care 131 mg/dL (70-110)
[2021-02-27] MEDS: heparin 5,000 unit/mL INJ 1 mL 5000 UNIT SUBCUT (01:33)
[2021-02-27 04:00] VITALS: BP 131/74; PULSE 76; RESP 18; TEMP 37.3; O2SAT 94
--- NOTE | 2021-02-27 04:22 | PC.NURSE ---
END OF SHIFT SUMMARY PT HAS RESTED THROUGHOUT SHIFT - DENIES PAIN OR NEEDS - VSS - COOK IS DRAINING YELLOW DRAINAGE WITHOUT DIFFICULTY - WILL MONITOR
[2021-02-27] MEDS: fluconazole premix 200 MG/100 ML PREMIX 100 MG IV (05:30)
[2021-02-27 06:18] LABS: Glucose Point of Care 128 mg/dL (70-110)
[2021-02-27 06:47] LABS: Basophils % 0.3 %; Eosinophils # 0.4 10^3/uL (0.0-0.8); Eosinophils % 6.1 %; Hematocrit 34.9 % (42.0-52.0); Hemoglobin 10.8 g/dL (11.7-16.6); Lymphocytes # 1.8 10^3/uL (0.8-4.8); Lymphocytes % 29.9 %; Mean Corpuscular HGB Conc 30.9 g/dL (30.0-36.0); Mean Corpuscular Hemoglobin 27.6 pg (28.0-34.0); Mean Platelet Volume 9.7 fL (7.4-10.4); Monocytes # 0.6 10^3/uL (0.2-0.9); Neutrophils # 3.31 10^3/uL (1.8-7.7); Neutrophils % 54.4 %; Nucleated Red Blood Cells % 0 %; Platelet Count 200 10^3/cmm (130-400); Red Blood Count 3.92 10^6/uL (4.1-5.3); Red Cell Distribution Width 17.4 % (12.1-15.1); White Blood Count 6.1 10^3/uL (4.0-10.0)
[2021-02-27 07:13] LABS: Anion Gap 14.4 (5-19); Blood Urea Nitrogen 18 mg/dL (8-23); Calcium 8.2 mg/dL (8.5-10.5); Carbon Dioxide 20 mmol/L (22-29); Chloride 113 mmol/L (98-107); Glucose 108 mg/dL (65-115); Osmolality Calculated 300 mOsm/kg (285-295); Potassium 3.4 mmol/L (3.5-5.1); Sodium 144 mmol/L (136-145)
[2021-02-27 07:36] VITALS: BP 124/71; PULSE 73; RESP 17; TEMP 36.8; O2SAT 96
[2021-02-27] MEDS: potassium chloride ER 20 mEq Tablet 40 MEQ PO (08:56)
--- NOTE | 2021-02-27 09:27 | PM.DCS ---
Discharge Providers Date of Admission: 02/24/21 10:12 Date of Discharge: February 27, 2021 Attending Provider at Admission: Bright Waters MD Attending Provider at Discharge: Bright Waters MD Primary Care Provider: Roxann Masters APN Diagnoses at Discharge Discharge Diagnosis (1) Cystitis: Status: Acute (2) Acute kidney injury: Status: Acute (3) Hydronephrosis: Status: Acute (4) Hyponatremia: Status: Acute (5) Diabetes mellitus: Status: Acute Reason for Visit Reason for Visit: NAUSEA, VOMIT, FEVER Hospital Course Hospital Course Alex is a 80-year-old white male with history of prostate cancer and left ureteral stone who presented to the hospital with fever, unable to urinate. He also had a history of a candidal UTI which was sensitive to fluconazole. Cystitis was present by urinalysis on arrival to the emergency department as well as acute kidney injury with creatinine of 3.3. CT scan demonstrated right hydronephrosis, unchanged from previously and the left ureteral stent with no evidence of hydronephrosis on the left. Mild hyponatremia was present. He was placed in the hospital and rehydrated. Loredo catheter was placed for inability to urinate. Urology was consulted. They did not believe any intervention in regards to right hydronephrosis was needed at this time. He was managed conservatively with IV antibiotics consisting of Primaxin and vancomycin as well as fluconazole. Urine grew yeast while in the hospital. He became afebrile for greater than 48 hours prior to discharge. Renal function improved to 1.2. On February 27 he wished to go home, and with him being afebrile with a normal white blood cell count this was arranged. He will follow-up with urology in about a week. He will follow-up with his primary care provider in 3 to 5 days with a [facility]. Of note he also had blood cultures while in the hospital and 2 out of 4 bottles grew coagulase-negative staph. This was thought to be a contaminant. Blood culture was drawn out of a peripheral IV left upper extremity that was positive. His culture peripherally from a blood draw was negative. Secondary to this it was not thought that he had any port infection. Repeat blood cultures were drawn as well, which did not demonstrate any growth. On discharge she will receive ciprofloxacin as well as fluconazole. I did check to make sure he did not have a reaction to ciprofloxacin when it was given last year, despite it being on his allergy list. Family assures me he did well with this prescription. Physical Exam Narrative: EXAM NARRATIVE: General exam no apparent distress Neck supple no lymphadenopathy or thyromegaly Cardiovascular regular rate and rhythm without murmur Lungs clear Abdomen is soft, positive bowel sounds Extremities no cyanosis clubbing or edema Port right chest no evidence of erythema Urinary Catheter Management^: Loredo: Cath Placed During This Visit: yes, but has since been removed by the nurse Reason for Continuing Indwelling Catheter: Other Urinary Catheter Date of Insertion: 02/24/21 Urinary Catheter Time of Insertion: 08:45 Date Urinary Catheter Removed: 02/24/21 Time Urinary Catheter Discontinued: 18:22 Discharge Data Data Completed and Pending: Completed Studies During Hospitalization Category Date Time Status CT abdomen pelvis wo con [id number] Stat Cat Scan 02/24/21 09:53 Completed XR chest 1V jah ble [id number] Routine Exams 02/24/21 12:33 Completed Pending at discharge Category Date Time Status Blood Culture Sta t Lab 02/24/21 10:19 Results Blood Culture Sta t Lab 02/25/21 09:38 Results Urine Culture Sta t Lab 02/24/21 08:57 Results Vancomycin Trough Timed Lab 02/27/21 09:00 Received Labs from last 24 hours 02/27/21 02/27/21 02/27/21 09:00 06:09 05:45 WBC RBC Hgb Hct MCV MCH MCHC RDW Plt Count MPV Neut % (Auto) Lymph % (Auto) [place] % (Auto) Eos % (Auto) Baso % (Auto) Neut # (Auto) Lymph # (Auto) [place] # (Auto) Eos # (Auto) Baso # (Auto) Nucleated RBC % (a uto) Nucleated RBCs # Sodium 144 Potassium 3.4 L Chloride 113 H Carbon Dioxide 20 L Anion Gap 14.4 BUN 18 Creatinine 1.2 GFR Calculation Not Reportable Glucose 108 POC Glucose 128 H Calculated Osmolal ity 300 H Calcium 8.2 L Vancomycin Trough Pending 02/27/21 02/26/21 02/26/21 05:45 20:09 16:37 WBC 6.1 RBC 3.92 L Hgb 10.8 L Hct 34.9 L MCV 89.0 MCH 27.6 L MCHC 30.9 RDW 17.4 H Plt Count 200 MPV 9.7 Neut % (Auto) 54.4 Lymph % (Auto) 29.9 [place] % (Auto) 9.0 Eos % (Auto) 6.1 Baso % (Auto) 0.3 Neut # (Auto) 3.31 Lymph # (Auto) 1.8 [place] # (Auto) 0.6 Eos # (Auto) 0.4 Baso # (Auto) 0.0 Nucleated RBC % (a uto) 0 Nucleated RBCs # 0.0 Sodium Potassium Chloride Carbon Dioxide Anion Gap BUN Creatinine GFR Calculation Glucose POC Glucose 131 H 118 H Calculated Osmolal ity Calcium Vancomycin Trough 02/26/21 11:23 WBC RBC Hgb Hct MCV MCH MCHC RDW Plt Count MPV Neut % (Auto) Lymph % (Auto) [place] % (Auto) Eos % (Auto) Baso % (Auto) Neut # (Auto) Lymph # (Auto) [place] # (Auto) Eos # (Auto) Baso # (Auto) Nucleated RBC % (a uto) Nucleated RBCs # Sodium Potassium Chloride Carbon Dioxide Anion Gap BUN Creatinine GFR Calculation Glucose POC Glucose 163 H Calculated Osmolal ity Calcium Vancomycin Trough Vitals: Last Vital Signs Temp 98.3 F 02/27/21 07:36 Pulse 73 02/27/21 07:36 Resp 17 02/27/21 07:36 BP 124/71 02/27/21 07:36 Pulse Ox 96 02/27/21 07:36 Discharge Plan Discharge Patient Disposition: Home Health Service Condition: Stable Prescriptions: New ciprofloxacin HCl [Cipro] 500 mg tablet 500 mg PO BID Qty: 20 RF: 0 fluconazole 200 mg tablet 200 mg PO DAILY Qty: 10 RF: 0 Continued metformin 500 mg tablet 500 mg PO DAILY RF: 0 ascorbic acid (vitamin C) 1,000 mg tablet 1 gm PO BID PRN (Reason: WHEN OFF ABX) RF: 0 Erleada 60 mg tablet 240 mg PO DAILY RF: 0 methenamine hippurate 1 gram tablet 1 g PO BID PRN (Reason: WHEN OFF ABX) RF: 0 Discontinued fluconazole 200 mg tablet 200 mg PO DAILY Qty: 10 RF: 0 doxycycline hyclate 100 mg Capsule 100 mg PO BID RF: 0 Discharge Orders: Discharge Order (Routine); Ordered 02/27/21 Ordered By: Bright Waters Referrals: Roxann Masters APN [Primary Care Provider] - 4-7 days (BMP on follow-up) Jasper Lloyd MD [Physician] - 7-10 days Discharge Diet: Diabetic Discharge Activity: Increase activity as tolerated Patient Instructions: Opioid Safety Activity Restrictions/Additional Instructions: Leave Loredo catheter in at discharge Keep follow-up with urology Discharge with home health Discharge Attestations Time Spent in Discharge Care*: greater than 30 min Status at Discharge: Cognitive status at discharge: cognitively intact, Behavioral status at discharge: cooperative, Quality Metrics Clinical Quality Measures During this hospital stay, did patient experience: None Coding Level of Care Code Acute Chg FW DC note Diagnoses Cystitis N30.90 Acute kidney injury N17.9 Hydronephrosis N13.30 Hyponatremia E87.1 Diabetes mellitus E11.9
[2021-02-27 09:49] LABS: Vancomycin Trough 8.8 ug/mL (10-15)
--- NOTE | 2021-02-27 11:01 | PC.SOCIAL ---
IMM updated IMM updated with patient. Pg 2 copy provided. Patient verbalizes understanding. initialed, dated, timed and placed in chart.
[2021-02-27] MEDS: vancomycin 1,500 MG/300 ML PIGGYBACK 200 MG IV (11:15)
[2021-02-27 11:36] VITALS: BP 127/81; PULSE 70; RESP 17; TEMP 36.4; O2SAT 95
[2021-02-27 13:12] LABS: Glucose Point of Care 141 mg/dL (70-110)
[2021-02-27 14:24] VITALS: BP 127/81; PULSE 70; RESP 17; TEMP 36.4; O2SAT 95
== END 2021-02-27 14:25 | disposition home health service (06) | DRG 690 ==
LOC: ER 11:50 → MEDSURG 12:34
PROVIDERS: Admitting Provider Internal Medicine; Emergency Provider Family Medicine; PCP Nurse Practitioner; Visit Provider Internal Medicine
DX: N30.00 Acute cystitis without hematuria (principal); N13.2 Hydronephrosis with renal and ureteral calculous obstruction; N17.9 Acute kidney failure, unspecified; E87.1 Hypo-osmolality and hyponatremia; B37.41 Candidal cystitis and urethritis; N30.20 Other chronic cystitis without hematuria; C61 Malignant neoplasm of prostate; E11.9 Type 2 diabetes mellitus without complications; N39.3 Stress incontinence (female) (male); Z90.79 Acquired absence of other genital organ(s); Z96.0 Presence of urogenital implants; Z92.3 Personal history of irradiation; Z79.84 Long term (current) use of oral hypoglycemic drugs
CPT/HCPCS: 36415; 36416; 51702; 71045; 74176; 80048; 80053; 80202; 81001; 82962; 83605; 83735; 85025; 87040; 87086; 87106; 87205; 87426; 96365; 96367; 96372; 97161; 97530; 99285; J0743; J1450; J1644; J1815; J3370; J3475; J7030

== ENCOUNTER 2021-03-03 09:40 | Outpatient (CLI) | payer MEDICARE, OTHER, SELFPAY ==
[2021-03-03 10:21] LABS: Basophils # 0.1 10^3/uL (0.0-0.1); Basophils % 0.7 %; Eosinophils # 0.2 10^3/uL (0.0-0.8); Hematocrit 40.4 % (42.0-52.0); Hemoglobin 12.3 g/dL (11.7-16.6); Lymphocytes % 22.4 %; Mean Corpuscular HGB Conc 30.4 g/dL (30.0-36.0); Mean Corpuscular Hemoglobin 27.4 pg (28.0-34.0); Mean Platelet Volume 9.5 fL (7.4-10.4); Monocytes # 0.6 10^3/uL (0.2-0.9); Neutrophils # 6.03 10^3/uL (1.8-7.7); Neutrophils % 66.1 %; Nucleated Red Blood Cells % 0 %; Platelet Count 308 10^3/cmm (130-400); Red Blood Count 4.49 10^6/uL (4.1-5.3); Red Cell Distribution Width 17.1 % (12.1-15.1); White Blood Count 9.1 10^3/uL (4.0-10.0)
[2021-03-03 11:01] LABS: Alanine Aminotransferase 8 U/L (0-41); Albumin Level 3.6 g/dL (3.5-5.2); Alkaline Phosphatase 50 IU/L (40-130); Anion Gap 19.9 (5-19); Aspartate Amino Transferase 10 U/L (0-40); Blood Urea Nitrogen 24 mg/dL (8-23); Carbon Dioxide 21 mmol/L (22-29); Chloride 100 mmol/L (98-107); Globulin 3.6 g/dL (1.3-4.6); Glucose 124 mg/dL (65-115); Osmolality Calculated 289 mOsm/kg (285-295); Potassium 3.9 mmol/L (3.5-5.1); Sodium 137 mmol/L (136-145); Total Bilirubin 0.2 mg/dL (0.15-1.2); Total Protein 7.2 g/dL (6.6-8.7)
== END 2021-03-03 09:41 | disposition home or self-care (01) ==
LOC: ONCMED 09:44
PROVIDERS: PCP Nurse Practitioner; Visit Provider Internal Medicine Medical Oncology
DX: C61 Malignant neoplasm of prostate (principal); Z92.21 Personal history of antineoplastic chemotherapy; Z79.899 Other long term (current) drug therapy
CPT/HCPCS: 36415; 36591; 80053; 84153; 85025

== ENCOUNTER 2021-03-04 05:55 | Outpatient (CLI) | payer MEDICARE, OTHER, SELFPAY ==
--- NOTE | 2021-03-04 18:39 | ONC FU_ITS ---
Dr. Alcazar follow up note Patient: Alex Kauffman Unit #: [id number]: 1940 Dicatated By: Tom Alcazar M.D.Date of Visit:Mar 04, 2021 Onc Med Follow-up/Prog Note History of Present Illness: Mr. Kauffman is a 80-year-old gentleman with long-standing history of prostate cancer. Initially, he was diagnosed with prostate cancer in May 2000. At that time, his PSA was 9 and a biopsy showed 2+ 2/3+4/3+3 with the largest volume equal 3+4. Underwent radical retropubic prostatectomy in June 2000. He was followed with PSA postoperatively and during follow-up it was noted his PSA was increasing but slowly. Finally in 2010 it was felt he needed further treatment. He was treated with radiation therapy which he completed in March 2011. It showed good response with PSA down to 0.05. During follow-up in November 2012, his PSA gone up to 0.21; in May 2013 up to 0.35 and in November 2013 it was 0.93. In February 2015, he underwent cystoscopic examination found to have local recurrence. It was resected and confirmed to be poorly differentiated prostate cancer. At that time he was started on combined androgen blockade postop. His treatment was complicated by recurrent hematuria and burning micturition. Follow-up lab showed a gradual increase in his PSA level and from 07/06/2017 it was 2.5 earlier while on combined androgen blockade. On 12/21/2017, he underwent cystoscopy with transurethral resection of a bladder lesion, cystourethroscopy with placement of ureteral stent on left side and dilation of urethra. 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 Mr Kauffman has had persistent urine tract infection and recently finished course of Levaquin. Repeat urinalysis on 02/16/2018 showed persistent urine tract infection: leukoesterase positive and persistent RBCs and WBCs on microscopic evaluation. Mr Kauffman reported he did notice pus drops every time after he finish his urination. His case was discussed with Dr. Lloyd, urologist, and he was referred for possible cystoscopy to rule out postsurgical abscess or other source of infection- before we started chemotherapy. Mr Kauffman reported that he has seen Dr. Lloyd. Dr Lloyd replaced the urinary stent and did notice lots of urinary debris. Mr Kauffman was started on long-term antibiotics with Hiprex 1 g by mouth daily. He began his first dose of docetaxel on 03/14/2018. He was not given Neulasta as he did not have insurance approval at the time of chemotherapy. He did have significant neutropenia on day 8 with an ANC of 600. He did not have symptoms and gradually recovered. He did qualify for Neulasta administration with cycle 2 and Concluded his chemotherapy e.g. 6 doses on 06/27/2018 He went to [facility] on 09/07/2018 and as per patient and his , patient was started on Zytiga/prednisone for one year in addition to Zoladex every 3 months as scans done at [facility] showed excellent response to chemotherapy but persistent lung nodule and pelvic lesion and his PSA done there was around 1. We will obtain follow-up note from [facility] and review. On 09/21/2018 patient had left ureteral stent replacement. Mr Kauffman went to [facility] for follow-up on 12/25/2018 and had choline C 11 scan done, when compared with one from 09/07/2018, showed increased choline uptake is again seen in the prostatectomy bed on the left and involving the posterior bladder base is essentially unchanged from the previous scan. The small lymph nodes with choline uptake seen on the previous scan are unchanged. The pulmonary infiltrate have decreased. No new sites of abnormal choline uptake are noted. He was Tolerating ADT with Zoladex and Zytiga/prednisone well. He went to [facility] for follow-up on 06/29/2019. He underwent PET/CT choline which showed likely tumor at the left of urethral vesicle junction has SUV of 4.5 compared to 3.4 on 12/25/2018. Nonspecific activity to the right of urethrovesical junction has SUV of 1.8 compared to 2.1 previously. Likely tumor involving left sided urinary bladder including the left ureterovesical junction has SUV of 6.2 compared to 6.6 previously. Likely metastatic activity in the proximal right external iliac lymph node has SUV of 2.6 versus 2.2 previously. Nonspecific activity along the right common iliac vessels and adjacent to lumbar degenerative changes as current SUV of 2.9 versus 2.1 previously and his PSA was 2.5. based on these findings, Dr. Lewis recommended continue with Zoladex but discontinue Zytiga and taper off prednisone. Initiate xtandi and underwent follow-up CT PET on December 27, 2019 at [facility] which showed disease progression when compared with scan done on June 28, 2019 and showed malignant appearing choline activity along the urinary bladder oneal has increased,, prominent disease in the left UVJ region has current SUV of 9.7 versus 6.2 on June 2019. Metastatic appearing nodularity in the fat to the right of the urinary bladder anteriorly has increased. Approximate 1.7 x 1.3 cm right external iliac node measuring 0.7 x 0.5 cm on June 28, 2019 and now with SUV of 6 compared to 2.6 at that time. A likely metastatic right common iliac node now measures 1.8 x 1.2 cm versus 1 x 0.7 cm on June 28, 2019. Multiple nodes in the thorax shows interval increase activity compared to June 28, 2019, these are nonspecific could be due to granulomatous inflammation. As far as his left pelvic pain is concern, which is under control and left nephrostomy tube was suggested rather than continuing with ureteral stent exchanges every couple of months. Mr Kauffman was seen by Dr. Lewis and MSI/BRCA 1 and 2 were checked and both came back negative- so no role of immunotherapy with pembrolizumab and olaparib. Clinical trial was also considered but considering patient's age and overall condition, further chemotherapy with cabazitaxel was recommended and patient agreed. And he was advised to continue Xtandi until cabazitaxel is planned. Mr Kauffman began his first cycle of cabazitaxel on February 21, 2020. His Zoladex was last given on 01/28/2020. Mr Kauffman underwent choline CT PET scan after 4 doses of Jevtana at [facility] which was done on May 09, 2020 showed stable to mildly improved choline avid bladder and pelvic node metastatic disease. Enlarging subcentimeter left periaortic retroperitoneal nodes with low-grade colon activity, technically indeterminate for new nodes metastatic disease., Could be reactive. Patient was evaluated by on May 13, 2020 and his recommendations were to continue with Jevtana for 4 more cycles and then repeat: CT PET scan and also continue with 3 monthly Zoladex. And continue left ureteral stent exchanges locally. He continues with treatment.Patient completed total 8 cycles of Jevtana on July 23, 2020 And Followup Choline PET/CT scan on September 05, 2020 reported bladdrmetastatic disease with predominant involvement of left ureterovesical region and local invasion into pelvis including involvement of left pubic bone. The nodularity at right ureterovesical region with involvement of distal right ureter resulting in moderate right hydronephrosis, which may be new; Mild uptake within the subcentimeter left para-aortic node is indeterminate; Uptake within mediastinal and bilateral hilar nodes is nonspecific Mr Kauffman is being followed by Dr. 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 He is scheduled see Dr. Lloyd on November 08, 2019 for possible left ureteral stent change. His prostate cancer was discussed [facility] has recommended apalutamide or darolutamide while continuing with Zoladex and also consider low-dose dexamethasone. Came for follow-up, denies any specific complaint except he was recently admitted to hospital with blood clots in urine causing urinary obstruction thus obstructive nephropathy as his creatinine was around 3 during his admission to hospital on February 24, 2021, patient was treated with IV antibiotics and Loredo's cath was placed, patient underwent CT scan of abdomen pelvis on February 24, 2021 which showed left double-J ureteral catheter stable in appearance. Decompressed left ureter. Bladder is decompressed with diffuse wall thickening with surrounding induration suspicious for cystitis. Prior prostatectomy. Stable moderate right hydronephrosis with right ureterectasis. No visualized obstructing calculi.. As per patient he was supposed to go to [facility] last week but because of he was admitted to hospital so he canceled his trip to [facility]. And now feeling weak and tired to drive all the way to [facility] for appointment and requesting if we can discuss case with Dr. Lewis and plan accordingly as his PSA continues to go up while on apalutamide/dexamethasone/Zoladex Medications: AZO Yeast Plus 1 Tablet Oral daily PRN, Hiprex 1 Tablet (of 1 G) Oral b.i.d., MetFORMIN HCl 1 Tablet (of 500 mg) Oral daily, oxyCODONE-Acetaminophen 1 Tablet (of 5-325 mg) Oral q 4 to 6 hours PRN, Vitamin C 1 Tablet (of 1 G) Oral daily Allergies: Cipro, Penicillins, and Sulfa Antibiotics. Review of Systems: Review of Systems is not available for this patient. Vital Signs: Performed on Mar 04, 2021 09:45 Height - 67.00 in Weight - 204.8 lbs (LOW) BSA - 2.04 sq.m BMI - 32.08 (HIGH) Temperature - 98.2 F (LOW) Pulse - 76 /min Respiration - 18 /min BP - 145/83 mm(hg) (HIGH) O2 Sat - 97 % Pain - 0 Fatigue - 5 Performance Status: 1 - No physically strenuous activity, but ambulatory and able to carry out light or sedentary work (e.g. office work, light house work). (ECOG) Physical Examination: ENMT - No mouth sores, no thrush, no jaundice, Respiratory - Lungs are clear to auscultation, Cardiovascular - Regular rate and rhythm of heart, Abdomen - Soft, bowel sounds present, Extremities - Trace edema bilaterally. Lab/Imaging: Test performed on Nov 25, 2020 12:17 Cholesterol, Total 192 mg/dL Sodium 139 mmol/L TSH 2.69 uIU/mL Potassium 3.8 mmol/L Triglycerides 107 mg/dL Chloride 104 mmol/L LDL Cholesterol 137 mg/dL CO2 23 mmol/L Anion Gap 15.8 HDL Cholesterol 34 mg/dL BUN 18 mg/dL Cholesterol/HDL Ratio 5.65 mg/dL Creatinine 0.8 mg/dL LDL / HDL Ratio 4.03 RATIO Cr Clearance (Est) 103.1800 mL/min Glucose 96 mg/dL Osmolality - Calculated 290 mOsm/kg Calcium 8.3 mg/dL Protein, Total 6.6 g/dL Albumin 3.4 g/dL Globulin 3.2 g/dL Bilirubin, Total 0.2 mg/dL ALT (SGPT) 9 U/L AST (SGOT) 11 U/L Alkaline Phosphatase 47 IU/L WBC 6.5 10 3/uL RBC 4.71 10 6/uL HGB 12.5 g/dL HCT 40.3 % MCV 85.6 fL MCH 26.5 pg MCHC 31.0 g/dL RDW 16.8 % Platelet Count 218 10 3/cmm MPV 9.9 fL Neutrophils 3.72 10 3/uL Lymphocytes 1.6 10 3/uL Monocytes 0.8 10 3/uL Eosinophils 0.3 10 3/uL Basophils 0.1 10 3/uL Neutrophil % 57.0 % Lymphocyte % 25.0 % Monocyte % 12.1 % Eosinophil % 4.6 % Basophils % 0.8 % NRBC % 0 % Test performed on Sep 18, 2020 14:50 PSA 3.60 ng/mL Impression: Recurrent prostate cancer status post cystoscopy and excision in February 2015 followed by combined androgen blockade with Zoladex and Casodex. with gradual increasing PSA while on combined androgen blockade Initially he was diagnosed prostate cancer in 1999- at that time he underwent retropubic radical prostatectomy. Status post radiation therapy in 2010 for increasing PSA and lymphadenopathy. Hematuria/dysuria since February 2015. CT scan of abdomen pelvis done on 03/02/2018 showed soft tissue mass measuring 2.2 cm x 3.2 x 2.9 in the expected location of the prostate inseparable from the urinary bladder floor urinary bladder wall is diffusely thickened and there is a soft tissue attenuation between the soft tissue mass in the anterior infra levator rectal wall, rectal lesion not excluded Seen by Dr. Edwards on 10/24/2017 and his impression was changes in the rectum are probably due to prostate invasion rather than primary rectal lesion. 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 Mr Kauffman was seen by Dr Lloyd for persistent UTI symptoms post op and was placed on intermediate antibiotics. His symptoms resolved and he began recommended chemotherapy with docetaxel on 03/14/2018. Mr. Kauffman has tolerated the chemotherapy relatively well. He did have chemotherapy-induced neutropenia on day 8 of cycle 1. His initial ANC at time of treatment on 03/14/2018 was 13,300 on day 8 his ANC was [address] PET scan done on 05/06/2018 showed no evidence for recurrent or residual malignancy., Tiny scattered pelvic nodes are radiographically benign and FDG negative, no findings to indicate osseous metastatic disease and left-sided hydronephrosis is present and a ureteral catheter is in place. PSA checked on 05/15/2018 showed 1.81 compared to 6.49 on 03/14/2018 when chemotherapy with Taxotere was started And concluded his chemotherapy with Taxotere e.g. 6 doses on 06/27/2018 Status post left ureteral stent placement on 05/22/2018 Again replaced on 09/21/2018 Went to [facility] on 09/07/2018,Choline C 11 scan done on 09/07/2018 showed large choline avid recurrence in the prostatectomy bed involving the posterior bladder base has improved since prior exam, however suspicious new small focus of choline avid disease along the right posterior bladder wall. New choline avid node metastatic disease including a right supraclavicular node. And increasing pulmonary infiltrate and/or atelectasis in the posterior lower lobes with reactive choline activity. so he was started on Zytiga/prednisone for one year along with an 3 monthly Zoladex. Mr Kauffman returned to the [facility] on 12/25/2018 and had choline C 11 scan done on same date showed when compared with choline scan done on 09/07/2018, increased choline uptake is seen again in the prostatectomy bed on the left and involving the posterior bladder base is essentially unchanged from the previous scan. The small lymph nodes with choline uptake seen on the previous scans are unchanged the pulmonary infiltrates have decreased. No new sites of abnormal choline uptake are noted. Clinically, patient was doing reasonably, but recently had evidence of disease progression confirmed with CT PET choline and progressive PSA. Mr Kauffman went to [facility] for follow-up and now palliative chemotherapy with cabazitaxel is recommended. Mr Kauffman had disease progression on Zytiga, which he was tolerating well but presented with progressive disease and he was also on 3 monthly Zoladex. At that point, Mr Kauffman has discontinued Xtandi and role of cabazitaxel was discussed. The current treatment plan is cabazitaxel 20 mg/m??? every 3 weeks along with Neulasta to prevent chemotherapy-induced neutropenia as patient is a high risk. The initial plan was for him to receive 4 cycles of chemotherapy as recommended by [facility] and then he will go to clinic for follow-up evaluation including scans. Mr Kauffman was advised to pursue treatment with cabazitaxel with Neulasta support. Mr. Kauffman underwent right Port-A-Cath placement in the SVC/RA junction per Dr. Caballero at [facility] on February 14, 2020. He began his first cycle on 02/21/2020. He continues with every 3-month Zoladex. His last injection was given on April 29, 2020. He is currently off of all prednisone.And completed 8 cycles of Jevtana on July 23, 2020 And follow-up CT PET scan done on September 05, 2020 showed bladder metastatic disease with predominant involvement of left ureterovesical region and local invasion into pelvis including involvement of left pubic bone and there is nodularity at right ureterovesical region with involvement of distal right ureter resulting in moderate hydronephrosis Mild uptake within the subcentimeter left para-aortic lymph node is indeterminate., Patient is being followed by Dr. Lloyd, case was discussed with Dr. Lewis at [facility], he is recommended to discontinue Jevtana and start on apalutamide along with Zoladex and also low-dose dexamethasone and may consider consultation with radiation oncology regarding involved field radiation therapy Plan: Discussed with patient regarding his labs white blood count 9.1 hemoglobin 12.3 hematocrit 40.4 platelets 308,000 CMP within normal limits creatinine 0.8, PSA 22.36 compared to 15.34 on January 27, 2021 and 10.28 on January 02, 2021 Clinically, patient is doing reasonably well, recently discharged from the hospital after being admitted to hospital with UTI/obstructive nephropathy due to blood clots in the bladder which responded well to Loredo's cath and IV antibiotics, as per patient now urostomy is under consideration but patient is reluctant and not even happy with Loredo's cath., Now being followed by Dr. Lloyd As far as prostate cancer is concerned, his PSA has continued to go up while on apalutamide/low-dose dexamethasone/Zoladex and today his PSA is 22.36 compared to 15.34 earlier, clinically it appears patient has disease progression and last week he was supposed to see Dr. Lewis at [facility] but because of patient admission to the hospital with above-mentioned symptoms he canceled the appointment and now too weak to travel and requesting if he can discuss with Dr. Lewis on the phone regarding recommendations about progressive PSA while on a proton mild/low-dose dexamethasone/Zoladex., Call was placed for Dr. Lewis at [facility] and awaiting for the response. Patient will return to clinic in [address] Lewis suggest evaluation at [facility] then will see him after his visit to [facility] Signed By: Tom Alcazar M.D. <<Signature on File>>
== END 2021-03-04 05:56 | disposition home or self-care (01) ==
PROVIDERS: PCP Nurse Practitioner; Visit Provider Internal Medicine Hematology & Oncology
DX: C61 Malignant neoplasm of prostate (principal); Z79.818 Long term (current) use of other agents affecting estrogen receptors and estrogen levels; C79.51 Secondary malignant neoplasm of bone; C79.19 Secondary malignant neoplasm of other urinary organs; C79.89 Secondary malignant neoplasm of other specified sites; Z92.21 Personal history of antineoplastic chemotherapy
CPT/HCPCS: 99214

== ENCOUNTER 2021-03-27 08:29 | Outpatient (CLI) | payer MEDICARE, OTHER, SELFPAY ==
--- NOTE | 2021-03-27 08:45 | US_ITS ---
WS: [id number] RENAL ULTRASOUND HISTORY: HYDRONEPHROSIS COMPARISON: CT 02/24/2021 TECHNIQUE: 2-D and color Doppler imaging of the kidney submitted. Right kidney: 12.3 cm x 7.7 cm x 6.4 cm. Normal size kidney. Moderate hydronephrosis RIGHT renal pelvis and proximal ureter. No solid mass. Left kidney: 10.6 cm x 5.8 cm x 5.8 cm. Normal size kidney. No hydronephrosis. Patient has a LEFT ureteral stent in position which is difficu lt to see by ultrasound. Aorta: Mild atherosclerosis. Urinary Bladder: Nondistended urinary bladder. Loredo catheter balloon is distended in the bladder. US/US renal BI* [id number] IMPRESSION: 1. Persistent moderate RIGHT hydronephrosis. Similar to the prior CT of 021. 2. No LEFT renal hydronephrosis.
[2021-03-27 09:52] LABS: Anion Gap 16.3 (5-19); Blood Urea Nitrogen 23 mg/dL (8-23); Calcium 8.9 mg/dL (8.5-10.5); Carbon Dioxide 25 mmol/L (22-29); Chloride 103 mmol/L (98-107); Glucose 98 mg/dL (65-115); Osmolality Calculated 294 mOsm/kg (285-295); Potassium 4.3 mmol/L (3.5-5.1); Sodium 140 mmol/L (136-145)
== END 2021-03-27 08:30 | disposition home or self-care (01) ==
PROVIDERS: PCP Nurse Practitioner; Visit Provider Urology
DX: N13.30 Unspecified hydronephrosis (principal)
CPT/HCPCS: 36415; 76770; 80048

== ENCOUNTER 2021-04-15 08:45 | Outpatient (CLI) | payer MEDICARE, OTHER, SELFPAY ==
--- NOTE | 2021-04-15 09:02 | XR_ITS ---
WS: [id number] KUB, AP view, 04/15/2021 Clinical Data: EXTRINSIC URETERAL OBSTRUCTION Comparison: KUB, 01/27/2021. Findings: No abnormal intraabdominal masses or calcifications are seen. There is no dilatated small bowel or ev idence of obstruction. The left ureteral stent remains in good position. The possible left ureteral calculus noted on the pr ior study is not seen. There are clips in the true pelvis from prostate surgery. XR/XR KUB [id number] Impression: No change in left ureteral stent.
== END 2021-04-15 08:46 | disposition home or self-care (01) ==
PROVIDERS: PCP Nurse Practitioner; Visit Provider Urology
DX: N13.5 Crossing vessel and stricture of ureter without hydronephrosis (principal); Z96.0 Presence of urogenital implants
CPT/HCPCS: 74018; 87635

== ENCOUNTER 2021-04-17 11:58 | Day surgery (SDC) | payer MEDICARE, OTHER, SELFPAY ==
[2021-04-16 16:12] VITALS: BMI 32.8
[2021-04-17] VITALS (7 sets, daily range): BP systolic 126–150; BP diastolic 74–82; PULSE 70–74; RESP 16–18; TEMP 36.4–36.5; O2SAT 95–96
--- NOTE | 2021-04-17 | SCC_ITS ---
Procedure Done: 1. Cystoscopy, exchange left ureteral stent 2. Difficulty Loredo catheter replacement, altered anatomy 49.2 seconds of fluoroscopic guidance, for a cumulative dose of 20.67 mGy, was provided to Dr. Lloyd by the radiology department. C-arm images of the abdomen were saved for the patient's permanent record. [facility]
--- NOTE | 2021-04-17 12:21 | P.ANESASSM_ITS ---
Pre-Anesthetic Assessment Pre-Anesthetic Assessment: Height/Weight: Height 1.7 m Weight 95.254 kg Preop Diagnosis: Bilateral ureteral obstruction secondary to prostate cancer Proposed Procedure: Operation Date: 04/17/21 13:00 Proposed Procedures p Cystoscopy 93678 [id number] N13.5 N13.30(Not Applicable) - Jasper Lloyd MD s Ureteral Stent Exchange ernst catheter change(Not Applicable) - Jasper Lloyd MD Familial anesthetic complications: None Was Beta Jasmine taken within 24 hours: N/A Was Clonidine taken within 24 hours: N/A Last intake: NPO > 8 hrs Social: Social History: No alcohol and No tobacco Exam: Pre-Anes Outpt Exam: alert, oriented x 3, clear to auscultation bilat erally and regular rate & rhythm Airway: Cervical ROM: WNL MP: 4 Dentition: False Metabolic: Metabolic: DM Anesthetic Plan: ASA status: 3 Anesthesia: General Risk of > 500 ml blood loss (7ml/kg in children): No PFSH Anesthesia PFSH: Medical History Acute kidney injury Chronic cystitis Diabetes mellitus Extrinsic ureteral obstruction High anion gap metabolic acidosis Hydronephrosis of right kidney Male stress incontinence Prostate cancer Pyelonephritis Urinary retention Surgical History History of radical retropubic prostatectomy Hx of transurethral destruction of bladder lesion S/P right knee surgery Status post placement of ureteral stent Left side Family History Mother , in her 70's CAD (coronary artery disease) Father , in his 80's No problems noted. Social History Alcohol intake: never Household members: spouse Marital status: Current occupational status: retired History of recent travel: No Data Anesthesia Cardiac Studies: No Data to Display
[2021-04-17] MEDS: sodium chloride 0.9% 1,000 ML 30 ML IV (12:48)
--- NOTE | 2021-04-17 13:15 | W.PM.OPSUD ---
Surgery/Procedure H&P Update DATE OF PROCEDURE: April 17, 2021 DATE H&P PERFORMED: 04/15/21 H&P UPDATE INFORMATION: I have reviewed H&P completed within last 30 days, I have examined patient prior to procedure, No changes to prior documentation and H&P is in [facility] EMR on date indicated PREOP DIAGNOSIS: Bilateral ureteral obstruction secondary to prostate cancer PLANNED PROCEDURE: Operation Date: 04/17/21 13:00 Proposed Procedures p Cystoscopy 65452 [id number] N13.5 N13.30(Not Applicable) - Jasper Lloyd MD s Ureteral Stent Exchange ernst catheter change(Not Applicable) - Jasper Lloyd MD
[2021-04-17] MEDS: vancomycin 1,000 MG in sodium chloride 0.9% 250 ML 250 MG IV (13:35)
[2021-04-17 13:44] LABS: Blood Urea Nitrogen 14 mg/dL (8-23)
--- NOTE | 2021-04-17 13:53 | PM.OP ---
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 Cystoscopy, exchange left ureteral stent 2. Difficulty [place] catheter replacement, altered anatomy Pathology: none sent Surgeon: Prema Anesthesia: MAC Estimated blood loss: <50 cc Urine output: Not measured Complications: None Brief History: Mr. Kauffman is a very pleasant 80-year-old white male with recurrent prostate cancer with locally aggressive infiltration of the posterior bladder wall, bladder neck status post radical prostatectomy, and both ureteral orifices. He has been maintained with an indwelling left ureteral stent for quite some time with routine changes and recently was identified as having progressive hydronephrosis of the right ureter. Further complicated by recurrent urinary tract infections including fungal infections with leading to severe ATN but without addressing the right ureteral orifice obstruction his renal function normalized. Over time he has had progressing local inflammatory and tissue breakdown from malignant process at the bladder neck and trigone. The last couple stent changes have been quite difficult due to poor visualization and tissue fragmentation. He is admitted today for stent change. We have talked quite a bit about converting to percutaneous nephrostomy tubes. To date he has been reluctant to consider that. Procedure: After routine preoperative evaluation examination and obtaining of informed consent he was taken to the operating suite on 04/17/2021 where MAC anesthesia was administered without difficulty after appropriate timeout was performed, SCDs confirmed to be functioning, preoperative antibiotics administered, beta-kofi protocol confirmed. Prepped and draped in usual sterile fashion in dorsolithotomy position paying careful attention to avoiding pressure points. 21 Syrian cystoscope with 30 degree lens was introduced into the urethra meatus and advanced into the bladder under visualization. The anatomy was further distorted and even last time. A lot of friable tissue, no normal landmarks, and actually was quite difficult even identify the stent. Eventually it was identified and grasped distally and withdrawn to the urethral meatus under fluoroscopic monitoring with easy uncurling of the proximal end. A guidewire was then advanced up the stent into the area of the renal pelvis and the stent was then removed entirely. The cystoscope was then backloaded over the guidewire and an 8.5 Syrian by 26 cm double-pigtail stent was advanced over the guidewire through the cystoscope into appropriate position as confirmed via fluoroscopy and cystoscopy. The wire was then repassed back through the cystoscope curling in the bladder. This was in order to facilitate a winnebago tip catheter due to the extreme difficulty in getting a catheter in reliable position. A 20 Syrian winneb[place] tip catheter was then advanced over the guidewire into the there of the bladder. Approximately 1 cc of contrast was injected into the balloon and then withdrawn after the balloon was confirmed to be in appropriate position. 6 cc of sterile water was then injected into the balloon to secure the catheter into appropriate position and the guidewire was removed and the procedure completed after irrigation catheter showed patency. Tolerated procedure well without complications and was awakened in the operating room and returned to the recovery room in stable condition.
[2021-04-17 14:06] LABS: Anion Gap 19.5 (5-19); Chloride 102 mmol/L (98-107); Osmolality Calculated 289 mOsm/kg (285-295); Potassium 3.5 mmol/L (3.5-5.1); Sodium 139 mmol/L (136-145)
--- NOTE | 2021-04-17 14:11 | SC_ITS ---
WS: [id number] C-ARM RADIOGRAPHS ABDOMEN; 2 IMAGES HISTORY: ureteral obstruction COMPARISON: None available. Intraoperative imaging during ureteral evaluation. LEFT ureteral stent is present. AR/C-arm [place] for Urology IMPRESSION: Intraoperative imaging during LEFT ureteral stent evaluation.
[2021-04-17 14:13] LABS: Calcium 8.7 mg/dL (8.5-10.5); Carbon Dioxide 21 mmol/L (22-29); Glucose 105 mg/dL (65-115)
--- NOTE | 2021-04-17 16:02 | ANE.PACU2 ---
Inpatient post-anesthesia follow up: Airway intact: Yes Vital signs: Temperature 97.6 F Pulse Rate 72 Respiratory Rate 17 Blood Pressure 135/74 Pulse Oximetry 96 Oxygen Delivery Me thod Room Air Oxygen Flow Rate Fraction of Inspir ed Oxygen Hydration adequate: Yes Nausea and vomiting: No Pain level: 3 Mental status: Baseline
[2021-04-19 07:59] LABS: Glucose Point of Care 121 mg/dL (70-110)
== END 2021-04-17 16:32 | disposition home or self-care (01) ==
PROVIDERS: PCP Nurse Practitioner; Visit Provider Urology
PROC: 0TJB8ZZ Inspection of Bladder, Via Natural or Artificial Opening Endoscopic (ICD-10-PCS; CPT 52000; principal; 2021-04-17 13:00)
PROC: (CPT 52332; 2021-04-17 13:00)
DX: N13.5 Crossing vessel and stricture of ureter without hydronephrosis (principal); C61 Malignant neoplasm of prostate; E11.9 Type 2 diabetes mellitus without complications; Z82.49 Family history of ischemic heart disease and other diseases of the circulatory system; Z79.84 Long term (current) use of oral hypoglycemic drugs
CPT/HCPCS: 52332; 36416; 76000; 80048; 82962; C2625; J2704; J3010; J3370; J7030; J7050

== ENCOUNTER 2021-05-02 12:11 | Emergency (ER) | payer MEDICARE, OTHER, SELFPAY ==
[2021-05-02 12:47] VITALS: BP 118/53; PULSE 79; RESP 16; TEMP 37.6; O2SAT 92
--- NOTE | 2021-05-02 13:07 | ED_ITS ---
HPI - COVID General: Chief Complaint: COVID symptoms Stated Complaint: Covid +, SOB Time Seen by Provider: 05/02/21 13:04 Triage information: Has fever, cough or shortness of breath . History of Present Illness: HPI Narrative: This patient is a 80-year-old male that states that he was told today that he had with his Covid positive after testing today. Patient states he is here for an outpatient infusion. Patient has no specific Covid complaints. Nursing staff will try to call the infusion center to see if the patient has a scheduled appointment. complaint: known COVID positive COVID 19 common symptoms: negative fever(s), chills, non-productive cough, productive cough, dyspnea, fatigue, body aches, headache(s), throat pain, nausea or vomiting COVID 19 other sytmptoms: negative chest pain COVID Results: SARS-CoV-2 Antigen (Rapid) Negative (Negative) 02/24/21 14:35 02/24/21 Nasal/Oral Coronavirus 2019 PCR Not detected 04/15/21 10:40 04/15/21 Review of Systems General: Reports: 10 or more systems reviewed and unremarkable except in HPI and below Const: Denies: fever(s), chills, body aches or fatigue Eyes: Denies: change in vision or blurry vision ENMT: Denies: throat pain, hoarseness or mouth pain Card: Denies: chest pain, palpitations, irregular heart rhythm, edema, swelling of feet/ankles or lightheadedness Resp: Denies: dyspnea, productive cough, non-productive cough, wheezing or pain on inspiration GI: Denies: abdominal pain, nausea or vomiting : Denies: flank pain, dysuria, urinary frequency, urinary urgency or urinary hesitancy Musc: Denies: neck pain, back pain, extremity pain, extremity swelling, joint pain, joint swelling, joint redness, joint warmth or limited range of motion Skin/Breast: Denies: rash, pruritus, erythema or skin tenderness Neuro: Denies: headache(s), numbness in extremities or weakness in extremities Psych: Denies: anxiety or depression PFS ED PFSH: Medical History Acute kidney injury Chronic cystitis Diabetes mellitus Extrinsic ureteral obstruction High anion gap metabolic acidosis Hydronephrosis of right kidney Male stress incontinence Prostate cancer Pyelonephritis Urinary retention Surgical History History of radical retropubic prostatectomy Hx of transurethral destruction of bladder lesion S/P right knee surgery Status post placement of ureteral stent Left side Family History Mother , in her 70's CAD (coronary artery disease) Father , in his 80's No problems noted. Social History Alcohol intake: never Household members: spouse Marital status: Current occupational status: retired History of recent travel: No Physical Exam Const: COMMON NORMALS: no acute distress, average body habitus, patient oriented x3, no limitations, healthy appearing, alert and well nourished HENMT: COMMON NORMALS: normocephalic, atraumatic, hearing grossly normal bilaterally, external ears normal, EAC's normal, TM's normal bilaterally, Normal external nose present, Normal nasal mucous membranes and turbinates present, moist oral mucous membranes, oropharynx normal, dentition normal and gingiva normal HEAD & SCALP: normocephalic and atraumatic NOSE: Normal external nose present and Normal nasal mucous membranes and turbinates present E XTERNAL EAR: Yes external ears normal EXTERNAL AUDITORY CANAL: EAC's normal TYMPANIC MEMBRANE: TM's normal bilaterally Neck/C-Spine: COMMON NORMALS: full ROM, no lymphadenopathy, supple, no meningeal signs, no JVD, Thyroid normal and No carotid bruits THYROID: Thyroid normal Chest: COMMONS NORMALS: normal inspection of the chest, normal palpation of entire chest wall, normal inspection of the breasts and normal palpation of the breasts Breast/axilla inspection: Yes normal inspection of the breasts BREAST/AXILLA PALPATION: Yes normal palpation of the breasts Resp: COMMON NORMALS: normal respiratory effort, No retractions, No use of accessory muscles, clear to auscultation bilaterally and percussion normal AUSCULTATION: clear to auscultation bilaterally PERCUSSION: percussion normal Cardio: COMMON NORMALS: no JVD, regular rate, regular rhythm, S1 normal heart sound present, S2 normal heart sound present, No gallops present (Cardio), No clicks present (Cardio), No murmurs present (Cardio), No rub (Cardio) and Peripheral pulses 2+ throughout RATE: regular rate RHYTHM: regular rhythm HEART SOUNDS: S1 normal heart sound present and S2 normal heart sound present PERIPHERAL PULSES: Peripheral pulses 2+ throughout GI: COMMON NORMALS: Normal to inspection, nondistended, normoactive bowel sounds present, Soft to palpation, non-tender, No hepatosplenomegaly present, no masses and no bruits PALPATION: Yes Soft to palpation and Yes No hepatosplenomegaly present : COMMON NORMALS: Yes no CVA tenderness BLADDER/KIDNEY EXAM: Yes no CVA tenderness Back/Pelvis: COMMON NORMALS: no CVA tenderness, thoracic and lumbar spine normal to inspection, no thoracic nor lumbar tenderness, thoraco-lumbar ROM normal and straight leg raise negative bilaterally Extremity: COMMON NORMALS: normal to inspection, full ROM, capillary refill normal, no joint enlargement, no clubbing, cyanosis or edema, no calf tenderness and no pedal edema Neuro: COMMON NORMALS: patient oriented x3 SENSORIUM/ORIENTATION: Yes alert MENINGEAL SIGNS: Yes no meningeal signs Course Reevaluation(s): Reevaluation #1: Patient has no emergent symptoms. Patient will be discharged from the ER. clothing room supervisor and registration will set up the patient for an outpatient scheduled infusion appointment for Tuesday. Per ER charge nurse. Time: 13:12 Vital Signs: Vital signs: Vital Signs Temperature 99.6 F 05/02/21 12:47 Pulse Rate 79 05/02/21 12:47 Respiratory Rate 16 05/02/21 12:47 Blood Pressure 118/53 05/02/21 12:47 Pulse Oximetry 92 05/02/21 12:47 MDM - COVID MDM Narrative: Medical decision making narrative: Patient has no emergent symptoms. Patient will be discharged from the ER. clothing room supervisor and registration will set up the patient for an outpatient scheduled infusion appointment for Tuesday. Per ER charge nurse. COVID Results: SARS-CoV-2 Antigen (Rapid) Negative (Negative) 02/24/21 14:35 02/24/21 Nasal/Oral Coronavirus 2019 PCR Not detected 04/15/21 10:40 04/15/21 Discharge Plan Discharge Patient Disposition: Home Clinical Impression: Encounter for medical screening examination, COVID-19 Condition: Stable Prescriptions: No Action metformin 500 mg tablet 500 mg PO DAILY RF: 0 ascorbic acid (vitamin C) 1,000 mg tablet 1 gm PO BID PRN (Reason: WHEN OFF ABX) RF: 0 ciprofloxacin HCl [Cipro] 250 mg tablet 250 mg PO DAILY Qty: 30 RF: 2 fluconazole 100 mg tablet 100 mg PO DAILY Qty: 30 RF: 3 methenamine hippurate 1 gram tablet 1 g PO BID PRN (Reason: WHEN OFF ABX) RF: 0 Discharge Orders: Discharge ED (Routine); Ordered 05/02/21 Ordered By: Westley Conte Referrals: Roxann Masters VEGETABLE LOADER MACHINE OPERATOR [Primary Care Provider] - Discharge Diet: Advance as tolerated Discharge Activity: Resume usual activity Patient Instructions: Opioid Safety Activity Restrictions/Additional Instructions: You will be set up by hospital staff for outpatient infusion for your COVID-19 diagnosis on Tuesday morning. Please follow their instructions. Coding Level of Care Code ED Salvage Laborer for Cristy Fwd Exam Comprehensive
== END 2021-05-02 13:19 | disposition home or self-care (01) ==
PROVIDERS: Emergency Provider Emergency Medicine; PCP Nurse Practitioner
DX: U07.1 COVID-19 (principal); Z79.84 Long term (current) use of oral hypoglycemic drugs; E11.9 Type 2 diabetes mellitus without complications; Z85.46 Personal history of malignant neoplasm of prostate
CPT/HCPCS: 99281

== ENCOUNTER 2021-05-02 13:23 | Outpatient (CLI) | payer MEDICARE, OTHER, SELFPAY ==
[2021-05-02 14:23] VITALS: BP 143/72; PULSE 79; TEMP 37.3; O2SAT 95; BMI 31.9
[2021-05-02 14:54] VITALS: BP 140/74; PULSE 73; RESP 15; TEMP 37.3; O2SAT 93
[2021-05-02 15:55] VITALS: BP 132/80; PULSE 73; RESP 18; O2SAT 93
== END 2021-05-02 13:24 | disposition home or self-care (01) ==
PROVIDERS: PCP Nurse Practitioner; Visit Provider Emergency Medicine
DX: U07.1 COVID-19 (principal); Z79.84 Long term (current) use of oral hypoglycemic drugs; E11.9 Type 2 diabetes mellitus without complications; Z85.46 Personal history of malignant neoplasm of prostate
CPT/HCPCS: 99281

== ENCOUNTER 2021-05-20 12:55 | Outpatient (CLI) | payer MEDICARE, OTHER, SELFPAY ==
[2021-05-20] MEDS: lidocaine 1% INJ 20 mL INJECTION (14:00)
[2021-05-20] MEDS: goserelin acetate 10.8 mg Implant SUBCUT (14:18)
--- NOTE | 2021-05-20 14:22 | ONC FU_ITS ---
Dr. Alcazar follow up note Patient: Alex Kauffman Unit #: [id number]: 1940 Dicatated By: Tom Alcazar M.D.Date of Visit:May 20, 2021 Onc Med Follow-up/Prog Note History of Present Illness: Mr. Kauffman is a 80-year-old gentleman with long-standing history of prostate cancer. Initially, he was diagnosed with prostate cancer in May 2000. At that time, his PSA was 9 and a biopsy showed 2+ 2/3+4/3+3 with the largest volume equal 3+4. Underwent radical retropubic prostatectomy in June 2000. He was followed with PSA postoperatively and during follow-up it was noted his PSA was increasing but slowly. Finally in 2010 it was felt he needed further treatment. He was treated with radiation therapy which he completed in March 2011. It showed good response with PSA down to 0.05. During follow-up in November 2012, his PSA gone up to 0.21; in May 2013 up to 0.35 and in November 2013 it was 0.93. In February 2015, he underwent cystoscopic examination found to have local recurrence. It was resected and confirmed to be poorly differentiated prostate cancer. At that time he was started on combined androgen blockade postop. His treatment was complicated by recurrent hematuria and burning micturition. Follow-up lab showed a gradual increase in his PSA level and from 07/06/2017 it was 2.5 earlier while on combined androgen blockade. On 12/21/2017, he underwent cystoscopy with transurethral resection of a bladder lesion, cystourethroscopy with placement of ureteral stent on left side and dilation of urethra. 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 Mr Kauffman has had persistent urine tract infection and recently finished course of Levaquin. Repeat urinalysis on 02/16/2018 showed persistent urine tract infection: leukoesterase positive and persistent RBCs and WBCs on microscopic evaluation. Mr Kauffman reported he did notice pus drops every time after he finish his urination. His case was discussed with Dr. Lloyd, urologist, and he was referred for possible cystoscopy to rule out postsurgical abscess or other source of infection- before we started chemotherapy. Mr Kauffman reported that he has seen Dr. Lloyd. Dr Lloyd replaced the urinary stent and did notice lots of urinary debris. Mr Kauffman was started on long-term antibiotics with Hiprex 1 g by mouth daily. He began his first dose of docetaxel on 03/14/2018. He was not given Neulasta as he did not have insurance approval at the time of chemotherapy. He did have significant neutropenia on day 8 with an ANC of 600. He did not have symptoms and gradually recovered. He did qualify for Neulasta administration with cycle 2 and Concluded his chemotherapy e.g. 6 doses on 06/27/2018 He went to [facility] on 09/07/2018 and as per patient and his , patient was started on Zytiga/prednisone for one year in addition to Zoladex every 3 months as scans done at [facility] showed excellent response to chemotherapy but persistent lung nodule and pelvic lesion and his PSA done there was around 1. We will obtain follow-up note from [facility] and review. On 09/21/2018 patient had left ureteral stent replacement. Mr Kauffman went to [facility] for follow-up on 12/25/2018 and had choline C 11 scan done, when compared with one from 09/07/2018, showed increased choline uptake is again seen in the prostatectomy bed on the left and involving the posterior bladder base is essentially unchanged from the previous scan. The small lymph nodes with choline uptake seen on the previous scan are unchanged. The pulmonary infiltrate have decreased. No new sites of abnormal choline uptake are noted. He was Tolerating ADT with Zoladex and Zytiga/prednisone well. He went to [facility] for follow-up on 06/29/2019. He underwent PET/CT choline which showed likely tumor at the left of urethral vesicle junction has SUV of 4.5 compared to 3.4 on 12/25/2018. Nonspecific activity to the right of urethrovesical junction has SUV of 1.8 compared to 2.1 previously. Likely tumor involving left sided urinary bladder including the left ureterovesical junction has SUV of 6.2 compared to 6.6 previously. Likely metastatic activity in the proximal right external iliac lymph node has SUV of 2.6 versus 2.2 previously. Nonspecific activity along the right common iliac vessels and adjacent to lumbar degenerative changes as current SUV of 2.9 versus 2.1 previously and his PSA was 2.5. based on these findings, Dr. Lewis recommended continue with Zoladex but discontinue Zytiga and taper off prednisone. Initiate xtandi and underwent follow-up CT PET on December 27, 2019 at [facility] which showed disease progression when compared with scan done on June 28, 2019 and showed malignant appearing choline activity along the urinary bladder oneal has increased,, prominent disease in the left UVJ region has current SUV of 9.7 versus 6.2 on June 2019. Metastatic appearing nodularity in the fat to the right of the urinary bladder anteriorly has increased. Approximate 1.7 x 1.3 cm right external iliac node measuring 0.7 x 0.5 cm on June 28, 2019 and now with SUV of 6 compared to 2.6 at that time. A likely metastatic right common iliac node now measures 1.8 x 1.2 cm versus 1 x 0.7 cm on June 28, 2019. Multiple nodes in the thorax shows interval increase activity compared to June 28, 2019, these are nonspecific could be due to granulomatous inflammation. As far as his left pelvic pain is concern, which is under control and left nephrostomy tube was suggested rather than continuing with ureteral stent exchanges every couple of months. Mr Kauffman was seen by Dr. Lewis and MSI/BRCA 1 and 2 were checked and both came back negative- so no role of immunotherapy with pembrolizumab and olaparib. Clinical trial was also considered but considering patient's age and overall condition, further chemotherapy with cabazitaxel was recommended and patient agreed. And he was advised to continue Xtandi until cabazitaxel is planned. Mr Kauffman began his first cycle of cabazitaxel on February 21, 2020. His Zoladex was last given on 01/28/2020. Mr Kauffman underwent choline CT PET scan after 4 doses of Jevtana at [facility] which was done on May 09, 2020 showed stable to mildly improved choline avid bladder and pelvic node metastatic disease. Enlarging subcentimeter left periaortic retroperitoneal nodes with low-grade colon activity, technically indeterminate for new nodes metastatic disease., Could be reactive. Patient was evaluated by on May 13, 2020 and his recommendations were to continue with Jevtana for 4 more cycles and then repeat: CT PET scan and also continue with 3 monthly Zoladex. And continue left ureteral stent exchanges locally. He continues with treatment.Patient completed total 8 cycles of Jevtana on July 23, 2020 And Followup Choline PET/CT scan on September 05, 2020 reported bladdrmetastatic disease with predominant involvement of left ureterovesical region and local invasion into pelvis including involvement of left pubic bone. The nodularity at right ureterovesical region with involvement of distal right ureter resulting in moderate right hydronephrosis, which may be new; Mild uptake within the subcentimeter left para-aortic node is indeterminate; Uptake within mediastinal and bilateral hilar nodes is nonspecific Mr Kauffman is being followed by Dr. 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 He is scheduled see Dr. Lloyd on November 08, 2019 for possible left ureteral stent change. His prostate cancer was discussed with Dr. Lewis at [facility] in [facility]. Dr Lewis has recommended apalutamide or darolutamide while continuing with Zoladex and also consider low-dose dexamethasone. , Xtandi was discontinued and follow-up: choline CT PET scan done on April 22, 2021 shows overall progression of metabolic prostate cancer within the urinary bladder and progressive invasion of left pubic bone. Extensive new and progressive presumed lymph node metastasis within the retroperitoneal right iliac chain persistent right moderate hydronephrosis Patient had telemedicine follow-up with Dr. Lewis on May 11, 2021 as per his note, he recommended Jevtana plus minus carboplatin or olaparib or Rubraca based on prior evidence of mutation. And follow-up evaluation or scans after 3 cycles of Jevtana or 3 months of olaparib. Came for follow-up, patient is complaining of discomfort in the pelvic area, off and on mild hematuria but no fever chills, no nausea or vomiting, no diarrhea or constipation oral is comfortable not requiring regular narcotics Medications: AZO Yeast Plus 1 Tablet Oral daily PRN, Hiprex 1 Tablet (of 1 G) Oral b.i.d., MetFORMIN HCl 1 Tablet (of 500 mg) Oral daily, oxyCODONE-Acetaminophen 1 Tablet (of 5-325 mg) Oral q 4 to 6 hours PRN, Vitamin C 1 Tablet (of 1 G) Oral daily Allergies: Cipro, Penicillins, and Sulfa Antibiotics. Review of Systems: Review of Systems is not available for this patient. Vital Signs: Performed on May 20, 2021 13:11 Height - 67.00 in Weight - 215.6 lbs (HIGH) BSA - 2.09 sq.m BMI - 33.77 (HIGH) Temperature - 96.4 F (LOW) Pulse - 69 /min Respiration - 18 /min BP - 130/77 mm(hg) O2 Sat - 95 % (LOW) Pain - 0 Fatigue - 2 Performance Status: 1 - No physically strenuous activity, but ambulatory and able to carry out light or sedentary work (e.g. office work, light house work). (ECOG) Physical Examination: ENMT - No mouth sores, no thrush, no jaundice, Respiratory - Lungs are clear to auscultation, Cardiovascular - Regular rate and rhythm of heart, Abdomen - Soft, bowel sounds present, Extremities - No visible edema. Lab/Imaging: Test performed on Mar 03, 2021 10:00 Sodium 137 mmol/L Potassium 3.9 mmol/L Chloride 100 mmol/L CO2 21 mmol/L Anion Gap 19.9 BUN 24 mg/dL Creatinine 0.8 mg/dL Cr Clearance (Est) 103.1800 mL/min Glucose 124 mg/dL Osmolality - Calculated 289 mOsm/kg Calcium 9.0 mg/dL Protein, Total 7.2 g/dL Albumin 3.6 g/dL Globulin 3.6 g/dL Bilirubin, Total 0.2 mg/dL ALT (SGPT) 8 U/L AST (SGOT) 10 U/L Alkaline Phosphatase 50 IU/L WBC 9.1 10 3/uL RBC 4.49 10 6/uL HGB 12.3 g/dL HCT 40.4 % MCV 90.0 fL MCH 27.4 pg MCHC 30.4 g/dL RDW 17.1 % Platelet Count 308 10 3/cmm MPV 9.5 fL Neutrophils 6.03 10 3/uL Lymphocytes 2.0 10 3/uL Monocytes 0.6 10 3/uL Eosinophils 0.2 10 3/uL Basophils 0.1 10 3/uL Neutrophil % 66.1 % Lymphocyte % 22.4 % Monocyte % 7.0 % Eosinophil % 2.0 % Basophils % 0.7 % NRBC % 0 % PSA 22.360 ng/mL Test performed on Nov 25, 2020 12:17 Cholesterol, Total 192 mg/dL TSH 2.69 uIU/mL Triglycerides 107 mg/dL LDL Cholesterol 137 mg/dL HDL Cholesterol 34 mg/dL Cholesterol/HDL Ratio 5.65 mg/dL LDL / HDL Ratio 4.03 RATIO Impression: Recurrent prostate cancer status post cystoscopy and excision in February 2015 followed by combined androgen blockade with Zoladex and Casodex. with gradual increasing PSA while on combined androgen blockade Initially he was diagnosed prostate cancer in 1999- at that time he underwent retropubic radical prostatectomy. Status post radiation therapy in 2010 for increasing PSA and lymphadenopathy. Hematuria/dysuria since February 2015. CT scan of abdomen pelvis done on 03/02/2018 showed soft tissue mass measuring 2.2 cm x 3.2 x 2.9 in the expected location of the prostate inseparable from the urinary bladder floor urinary bladder wall is diffusely thickened and there is a soft tissue attenuation between the soft tissue mass in the anterior infra levator rectal wall, rectal lesion not excluded Seen by Dr. Edwards on 10/24/2017 and his impression was changes in the rectum are probably due to prostate invasion rather than primary rectal lesion. 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 His symptoms resolved and he began recommended chemotherapy with docetaxel on 03/14/2018. Mr. Kauffman has tolerated the chemotherapy relatively well. He did have chemotherapy-induced neutropenia on day 8 of cycle 1. His initial ANC at time of treatment on 03/14/2018 was 13,300 on day 8 his ANC was [address] CT PET scan done on 05/06/2018 showed no evidence for recurrent or residual malignancy., Tiny scattered pelvic nodes are radiographically benign and FDG negative, no findings to indicate osseous metastatic disease and left-sided hydronephrosis is present and a ureteral catheter is in place. PSA checked on 05/15/2018 showed 1.81 compared to 6.49 on 03/14/2018 when chemotherapy with Taxotere was started And concluded his chemotherapy with Taxotere e.g. 6 doses on 06/27/2018 Status post left ureteral stent placement on 05/22/2018 Again replaced on 09/21/2018 Went to [facility] on 09/07/2018,Choline C 11 scan done on 09/07/2018 showed large choline avid recurrence in the prostatectomy bed involving the posterior bladder base has improved since prior exam, however suspicious new small focus of choline avid disease along the right posterior bladder wall. New choline avid node metastatic disease including a right supraclavicular node. And increasing pulmonary infiltrate and/or atelectasis in the posterior lower lobes with reactive choline activity. so he was started on Zytiga/prednisone for one year along with an 3 monthly Zoladex. Mr Kauffman returned to the [facility] on 12/25/2018 and had choline C 11 scan done on same date showed when compared with choline scan done on 09/07/2018, increased choline uptake is seen again in the prostatectomy bed on the left and involving the posterior bladder base is essentially unchanged from the previous scan. The small lymph nodes with choline uptake seen on the previous scans are unchanged the pulmonary infiltrates have decreased. No new sites of abnormal choline uptake are noted. Clinically, patient was doing reasonably, but recently had evidence of disease progression confirmed with CT PET choline and progressive PSA. Mr Kauffman went to [facility] for follow-up and now palliative chemotherapy with cabazitaxel is recommended. Mr Kauffman had disease progression on Zytiga, which he was tolerating well but presented with progressive disease and he was also on 3 monthly Zoladex. At that point, Mr Kauffman has discontinued Xtandi and role of cabazitaxel was discussed. The current treatment plan is cabazitaxel 20 mg/m??? every 3 weeks along with Neulasta to prevent chemotherapy-induced neutropenia as patient is a high risk. The initial plan was for him to receive 4 cycles of chemotherapy as recommended by [facility] and then he will go to clinic for follow-up evaluation including scans. Mr Kauffman was advised to pursue treatment with cabazitaxel with Neulasta support. Mr. Kauffman underwent right Port-A-Cath placement in the SVC/RA junction per Dr. Caballero at [facility] [place] on February 14, 2020. He began his first cycle on 02/21/2020. He continues with every 3-month Zoladex. His last injection was given on April 29, 2020. He is currently off of all prednisone.And completed 8 cycles of Jevtana on July 23, 2020 And follow-up CT PET scan done on September 05, 2020 showed bladder metastatic disease with predominant involvement of left ureterovesical region and local invasion into pelvis including involvement of left pubic bone and there is nodularity at right ureterovesical region with involvement of distal right ureter resulting in moderate hydronephrosis Mild uptake within the subcentimeter left para-aortic lymph node is indeterminate., Patient is being followed by Dr. Lloyd, case was discussed with Dr. Lewis at [facility], he is recommended to discontinue Jevtana and start on apalutamide along with Zoladex and also low-dose dexamethasone and may consider consultation with radiation oncology regarding involved field radiation therapy choline CT PET scan done on April 22, 2021 shows overall progression of metabolic prostate cancer within the urinary bladder and progressive invasion of left pubic bone. Extensive new and progressive presumed lymph node metastasis within the retroperitoneal right iliac chain persistent right moderate hydronephrosis Plan: Discussed with patient regarding his choline CT PET scan findings which shows disease progression now with a left pubic bone involvement, in addition to bladder invasion and retroperitoneal right iliac lymph node involvement, patient had telemedicine follow-up evaluation with Dr. Lewis at [facility] and his recommendations is to consider cytotoxic treatment with Jevtana plus minus carboplatin or olaparib, At this point will consider Jevtana 20 mg per metered square with Neulasta support to prevent chemotherapy-induced neutropenia leukopenia and along with prednisone 10 mg p.o. daily and then repeat choline CT PET scan after 3 cycles. And because of left pubic involvement we will also consider monthly Xgeva to prevent skeletal related complication. All the side effect possible benefits associated with Jevtana including but not limited to bone marrow suppression, hepatotoxicity, hair loss, nausea vomiting, peripheral neuropathy were mentioned, further teaching will be done by chemotherapy nurse. Will obtain approval from his insurance prior to the treatment and then patient will return to clinic 1 week after his first dose of Jevtana followed by Neulasta with CBC CMP and PSA Signed By: Tom Alcazar M.D. <<Signature on File>>
== END 2021-05-20 12:56 | disposition home or self-care (01) ==
LOC: ONCMED 12:57
PROVIDERS: PCP Nurse Practitioner; Visit Provider Internal Medicine Hematology & Oncology
DX: C61 Malignant neoplasm of prostate (principal); C79.51 Secondary malignant neoplasm of bone; C77.5 Secondary and unspecified malignant neoplasm of intrapelvic lymph nodes; Z79.818 Long term (current) use of other agents affecting estrogen receptors and estrogen levels; Z79.84 Long term (current) use of oral hypoglycemic drugs; Z79.899 Other long term (current) drug therapy
CPT/HCPCS: 96402; 99215; J9202

== ENCOUNTER 2021-05-25 08:42 | Outpatient (CLI) | payer MEDICARE, OTHER, SELFPAY ==
--- NOTE | 2021-05-25 08:50 | US_ITS ---
WS: [id number] RENAL ULTRASOUND HISTORY: Gross hematuria COMPARISON: 03/27/2021, PET/CT 04/22/2021 TECHNIQUE: 2-D and color Doppler imaging of the kidney submitted. Right kidney: 13.3 cm x 6.4 cm x 7.0 cm. Kidney is slightly enlarged. Moderate persistent dilatation of the RIGHT renal pelvis and ureter. Marvin al pelvis is dilated to 2.9 cm. Hydronephrosis and hydroureter have been previously described. No aldair id mass. Left kidney: 12.0 cm x 6.2 cm x 5.3 cm. Normal echogenicity with no hydronephrosis or mass. Aorta: Normal. Urinary Bladder: Nondistended. There is a Loredo catheter present. US/US renal BI* [id number] IMPRESSION: 1. Persistent moderate RIGHT hydronephrosis. Hydroureter and hydronephrosis rodrigez ve been described on prior examinations with no change. 2. No LEFT hydronephrosis.
[2021-05-25 10:18] LABS: Anion Gap 18.8 (5-19); Blood Urea Nitrogen 22 mg/dL (8-23); Calcium 9.2 mg/dL (8.5-10.5); Carbon Dioxide 21 mmol/L (22-29); Chloride 105 mmol/L (98-107); Glucose 131 mg/dL (65-115); Osmolality Calculated 297 mOsm/kg (285-295); Potassium 3.8 mmol/L (3.5-5.1); Sodium 141 mmol/L (136-145)
== END 2021-05-25 08:43 | disposition home or self-care (01) ==
PROVIDERS: PCP Nurse Practitioner; Visit Provider Urology
DX: R31.0 Gross hematuria (principal); N13.30 Unspecified hydronephrosis; N13.4 Hydroureter
CPT/HCPCS: 36415; 76770; 80048

== ENCOUNTER 2021-05-27 09:27 | Outpatient (CLI) | payer MEDICARE, OTHER, SELFPAY ==
[2021-05-27 10:26] LABS: Basophils % 0.5 %; Eosinophils # 0.3 10^3/uL (0.0-0.8); Eosinophils % 3.8 %; Hematocrit 41.6 % (42.0-52.0); Lymphocytes # 1.9 10^3/uL (0.8-4.8); Lymphocytes % 22.2 %; Mean Corpuscular HGB Conc 31.3 g/dL (30.0-36.0); Mean Corpuscular Hemoglobin 28.4 pg (28.0-34.0); Mean Corpuscular Volume 90.8 fl (80-94); Mean Platelet Volume 10.1 fL (7.4-10.4); Monocytes # 0.7 10^3/uL (0.2-0.9); Monocytes % 8.3 %; Neutrophils % 64.7 %; Nucleated Red Blood Cells % 0 %; Platelet Count 253 10^3/cmm (130-400); Red Blood Count 4.58 10^6/uL (4.1-5.3); Red Cell Distribution Width 15.7 % (12.1-15.1); White Blood Count 8.7 10^3/uL (4.0-10.0)
[2021-05-27 11:00] LABS: Alanine Aminotransferase 7 U/L (0-41); Albumin Level 4.1 g/dL (3.5-5.2); Alkaline Phosphatase 55 IU/L (40-130); Anion Gap 17.7 (5-19); Aspartate Amino Transferase 11 U/L (0-40); Blood Urea Nitrogen 18 mg/dL (8-23); Calcium 9.3 mg/dL (8.5-10.5); Carbon Dioxide 22 mmol/L (22-29); Chloride 107 mmol/L (98-107); Globulin 3.3 g/dL (1.3-4.6); Glucose 130 mg/dL (65-115); Osmolality Calculated 300 mOsm/kg (285-295); Potassium 3.7 mmol/L (3.5-5.1); Sodium 143 mmol/L (136-145); Total Bilirubin 0.3 mg/dL (0.15-1.2); Total Protein 7.4 g/dL (6.6-8.7)
== END 2021-05-27 09:28 | disposition home or self-care (01) ==
LOC: ONCMED 09:28
PROVIDERS: PCP Nurse Practitioner; Visit Provider Nurse Practitioner
DX: C61 Malignant neoplasm of prostate (principal)
CPT/HCPCS: 36591; 80053; 85025

== ENCOUNTER 2021-05-28 08:47 | Outpatient (CLI) | payer MEDICARE, OTHER, SELFPAY ==
[2021-05-28] MEDS: famotidine 20 mg/2 mL INJ IVP (09:38)
[2021-05-28] MEDS: sodium chloride 0.9% 250 ML 75 ML IV (09:38)
[2021-05-28] MEDS: diphenhydrAMINE 50 mg/mL SDV 1mL 25 MG IV (09:39)
[2021-05-28] MEDS: palonosetron 0.25 mg/5 mL SDV IV (09:40)
[2021-05-28] MEDS: denosumab 120 mg SDV SUBCUT (11:15)
[2021-05-28] MEDS: pegfilgrastim 6 mg/0.6 mL Kit (onpro) SUBCUT (11:20)
== END 2021-05-28 08:48 | disposition home or self-care (01) ==
PROVIDERS: PCP Nurse Practitioner; Visit Provider Nurse Practitioner
DX: Z51.12 Encounter for antineoplastic immunotherapy (principal); Z51.11 Encounter for antineoplastic chemotherapy; C61 Malignant neoplasm of prostate; Z79.899 Other long term (current) drug therapy
CPT/HCPCS: 96367; 96372; 96375; 96413; J0897; J1100; J1200; J2469; J2505; J3490; J7050; J9043

== ENCOUNTER 2021-06-04 06:34 | Outpatient (CLI) | payer MEDICARE, OTHER, SELFPAY ==
[2021-06-04 09:09] LABS: Hematocrit 39.8 % (42.0-52.0); Hemoglobin 12.3 g/dL (11.7-16.6); Mean Corpuscular HGB Conc 30.9 g/dL (30.0-36.0); Mean Corpuscular Hemoglobin 28.1 pg (28.0-34.0); Mean Corpuscular Volume 91.1 fl (80-94); Mean Platelet Volume 10.7 fL (7.4-10.4); Platelet Count 139 10^3/cmm (130-400); Red Blood Count 4.37 10^6/uL (4.1-5.3); Red Cell Distribution Width 15.9 % (12.1-15.1); White Blood Count 9.1 10^3/uL (4.0-10.0)
[2021-06-04 10:03] LABS: Slide Review Slide Review Perform
[2021-06-04 10:06] LABS: Absolute Neutrophil 5.9 10^3/cmm (1.4-6.5); Absolute Segmented Neutrophil 4.8 10/cmm (1.6-7.1); Band Neutrophils Absolute 1.1 10^3/cmm (0.0-1.2); Eosinophils 1 %; Lymphocytes 23 %; Monocytes Absolute 0.8 10^3/cmm (0.1-0.6); Platelet Estimate Decreased (Normal); Segmented Neutrophils 53 %; Total Cells Counted 100 (0-100)
[2021-06-04 10:07] LABS: Lymphocytes Absolute 2.1 10^3/cmm (1.2-3.4)
[2021-06-04 10:14] LABS: Alanine Aminotransferase 7 U/L (0-41); Albumin Level 3.7 g/dL (3.5-5.2); Alkaline Phosphatase 234 IU/L (40-130); Anion Gap 17.4 (5-19); Aspartate Amino Transferase 10 U/L (0-40); Blood Urea Nitrogen 19 mg/dL (8-23); Calcium 7.9 mg/dL (8.5-10.5); Carbon Dioxide 23 mmol/L (22-29); Chloride 105 mmol/L (98-107); Glucose 151 mg/dL (65-115); Osmolality Calculated 299 mOsm/kg (285-295); Potassium 3.4 mmol/L (3.5-5.1); Sodium 142 mmol/L (136-145); Total Bilirubin 0.2 mg/dL (0.15-1.2); Total Protein 6.7 g/dL (6.6-8.7)
--- NOTE | 2021-06-18 13:01 | ONC FU_ITS ---
Jenna [facility] Patient Note Patient: Alex Kauffman Unit #: [id number]: 1940 Dictated By: Yesenia GordonDate of Visit: Jun 04, 2021 Onc MED Follow-Up/Prog Note Chief Complaint: Prostate cancer History of Present Illness: Mr. Kauffman is a 80-year-old gentleman with long-standing history of prostate cancer. Initially, he was diagnosed with prostate cancer in May 2000. At that time, his PSA was 9 and a biopsy showed 2+ 2/3+4/3+3 with the largest volume equal 3+4. Underwent radical retropubic prostatectomy in June 2000. He was followed with PSA postoperatively and during follow-up it was noted his PSA was increasing but slowly. Finally in 2010 it was felt he needed further treatment. He was treated with radiation therapy which he completed in March 2011. It showed good response with PSA down to 0.05. During follow-up in November 2012, his PSA gone up to 0.21; in May 2013 up to 0.35 and in November 2013 it was 0.93. In February 2015, he underwent cystoscopic examination found to have local recurrence. It was resected and confirmed to be poorly differentiated prostate cancer. At that time he was started on combined androgen blockade postop. His treatment was complicated by recurrent hematuria and burning micturition. Follow-up lab showed a gradual increase in his PSA level and from 07/06/2017 it was 2.5 earlier while on combined androgen blockade. On 12/21/2017, he underwent cystoscopy with transurethral resection of a bladder lesion, cystourethroscopy with placement of ureteral stent on left side and dilation of urethra. 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 Mr Kauffman has had persistent urine tract infection and recently finished course of Levaquin. Repeat urinalysis on 02/16/2018 showed persistent urine tract infection: leukoesterase positive and persistent RBCs and WBCs on microscopic evaluation. Mr Kauffman reported he did notice pus drops every time after he finish his urination. His case was discussed with Dr. Lloyd, urologist, and he was referred for possible cystoscopy to rule out postsurgical abscess or other source of infection- before we started chemotherapy. Mr Kauffman reported that he has seen Dr. Lloyd. Dr Lloyd replaced the urinary stent and did notice lots of urinary debris. Mr Kauffman was started on long-term antibiotics with Hiprex 1 g by mouth daily. He began his first dose of docetaxel on 03/14/2018. He was not given Neulasta as he did not have insurance approval at the time of chemotherapy. He did have significant neutropenia on day 8 with an ANC of 600. He did not have symptoms and gradually recovered. He did qualify for Neulasta administration with cycle 2 and Concluded his chemotherapy e.g. 6 doses on 06/27/2018 He went to [facility] on 09/07/2018 and as per patient and his , patient was started on Zytiga/prednisone for one year in addition to Zoladex every 3 months as scans done at [facility] showed excellent response to chemotherapy but persistent lung nodule and pelvic lesion and his PSA done there was around 1. We will obtain follow-up note from [facility] and review. On 09/21/2018 patient had left ureteral stent replacement. Mr Kauffman went to [facility] for follow-up on 12/25/2018 and had choline C 11 scan done, when compared with one from 09/07/2018, showed increased choline uptake is again seen in the prostatectomy bed on the left and involving the posterior bladder base is essentially unchanged from the previous scan. The small lymph nodes with choline uptake seen on the previous scan are unchanged. The pulmonary infiltrate have decreased. No new sites of abnormal choline uptake are noted. He was Tolerating ADT with Zoladex and Zytiga/prednisone well. He went to [facility] for follow-up on 06/29/2019. He underwent PET/CT choline which showed likely tumor at the left of urethral vesicle junction has SUV of 4.5 compared to 3.4 on 12/25/2018. Nonspecific activity to the right of urethrovesical junction has SUV of 1.8 compared to 2.1 previously. Likely tumor involving left sided urinary bladder including the left ureterovesical junction has SUV of 6.2 compared to 6.6 previously. Likely metastatic activity in the proximal right external iliac lymph node has SUV of 2.6 versus 2.2 previously. Nonspecific activity along the right common iliac vessels and adjacent to lumbar degenerative changes as current SUV of 2.9 versus 2.1 previously and his PSA was 2.5. based on these findings, Dr. Lewis recommended continue with Zoladex but discontinue Zytiga and taper off prednisone. Initiate xtandi and underwent follow-up CT PET on December 27, 2019 at [facility] which showed disease progression when compared with scan done on June 28, 2019 and showed malignant appearing choline activity along the urinary bladder oneal has increased,, prominent disease in the left UVJ region has current SUV of 9.7 versus 6.2 on June 2019. Metastatic appearing nodularity in the fat to the right of the urinary bladder anteriorly has increased. Approximate 1.7 x 1.3 cm right external iliac node measuring 0.7 x 0.5 cm on June 28, 2019 and now with SUV of 6 compared to 2.6 at that time. A likely metastatic right common iliac node now measures 1.8 x 1.2 cm versus 1 x 0.7 cm on June 28, 2019. Multiple nodes in the thorax shows interval increase activity compared to June 28, 2019, these are nonspecific could be due to granulomatous inflammation. As far as his left pelvic pain is concern, which is under control and left nephrostomy tube was suggested rather than continuing with ureteral stent exchanges every couple of months. Mr Kauffman was seen by Dr. Lewis and MSI/BRCA 1 and 2 were checked and both came back negative- so no role of immunotherapy with pembrolizumab and olaparib. Clinical trial was also considered but considering patient's age and overall condition, further chemotherapy with cabazitaxel was recommended and patient agreed. And he was advised to continue Xtandi until cabazitaxel is planned. Mr Kauffman began his first cycle of cabazitaxel on February 21, 2020. His Zoladex was last given on 01/28/2020. Mr Kauffman underwent choline CT PET scan after 4 doses of Jevtana at [facility] which was done on May 09, 2020 showed stable to mildly improved choline avid bladder and pelvic node metastatic disease. Enlarging subcentimeter left periaortic retroperitoneal nodes with low-grade colon activity, technically indeterminate for new nodes metastatic disease., Could be reactive. Patient was evaluated by on May 13, 2020 and his recommendations were to continue with Jevtana for 4 more cycles and then repeat: CT PET scan and also continue with 3 monthly Zoladex. And continue left ureteral stent exchanges locally. He continues with treatment.Patient completed total 8 cycles of Jevtana on July 23, 2020 And Followup Choline PET/CT scan on September 05, 2020 reported bladdrmetastatic disease with predominant involvement of left ureterovesical region and local invasion into pelvis including involvement of left pubic bone. The nodularity at right ureterovesical region with involvement of distal right ureter resulting in moderate right hydronephrosis, which may be new; Mild uptake within the subcentimeter left para-aortic node is indeterminate; Uptake within mediastinal and bilateral hilar nodes is nonspecific Mr Kauffman is being followed by Dr. 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 He is scheduled see Dr. Lloyd on November 08, 2019 for possible left ureteral stent change. His prostate cancer was discussed with Dr. Lewis at [facility] in [facility]. Dr Lewis has recommended apalutamide or darolutamide while continuing with Zoladex and also consider low-dose dexamethasone. , Xtandi was discontinued and follow-up: Followup choline CT PET scan done on April 22, 2021 shows overall progression of metabolic prostate cancer within the urinary bladder and progressive invasion of left pubic bone. Extensive new and progressive presumed lymph node metastasis within the retroperitoneal right iliac chain persistent right moderate hydronephrosis Mr Kauffman had telemedicine follow-up with Dr. Lewis on May 11, 2021. Per Dr Lewis's his note, he recommended Jevtana plus/minus carboplatin or olaparib or Rubraca based on prior evidence of mutation. It was recommended to have follow-up evaluation or scans after 3 cycles of Jevtana or 3 months of olaparib. Mr Kauffman began his first cycle of Jevtana on 05/28/2021. He received his first dose of denosumab at that time as well. Past Medical History: Type II diabetes Past Surgical History: Colonoscopy Radical retropubic prostatectomy Right knee surgery Left kidney stent replacement in 2019 Kidney stent replacement in 2018 Kidney stent replacement in 2018 Stent replacement is done every 2 monthes Allergies: Cipro, Penicillins, and Sulfa Antibiotics. Medications: AZO Yeast Plus 1 Tablet Oral daily PRN Hiprex 1 Tablet (of 1 G) Oral b.i.d. MetFORMIN HCl 1 Tablet (of 500 mg) Oral daily oxyCODONE-Acetaminophen 1 Tablet (of 5-325 mg) Oral q 4 to 6 hours PRN Vitamin C 1 Tablet (of 1 G) Oral daily Family History: Mr. Kauffman's mother at age 75. Mr. Kauffman's father at age 87. Mr. Kauffman has 2 brothers: 2 . Mr. Kauffman's first brother's polio. Another brother's coronary artery disease. Social History: Mr. Kauffman is and he is retired. Mr. Kauffman no longer smokes. He has no history of drinking. He has indicated exposure to the following products: chewing tobacco. Mr. Kauffman reports the following support systems: lives with spouse, significant other, family, or friends. His diet consists of regular meals. formerly chewed tobacco, quit in 2000. Review Of Symptoms: <See Above> Vital Signs: Performed on Jun 04, 2021 09:51 Height - 67.00 in Weight - 210 lbs (LOW) BSA - 2.06 sq.m BMI - 32.89 (HIGH) Temperature - 96.3 F (LOW) Pulse - 63 /min Respiration - 18 /min BP - 135/77 mm(hg) O2 Sat - 95 % (LOW) Pain - 0 Fatigue - 8,2 - Ambulatory/capable of all self-care, unable to perform any work activities. Up and about more than 50% of waking hours. (ECOG) Physical Examination: Constitutional Alert, oriented, no acute distress. Skin pink, warm and dry. Denies fever or chills. Head Normocephalic; atraumatic. Eyes Conjunctivae and sclerae are clear and without icterus. Pupils are reactive and equal. ENMT Sinuses are nontender. No oral exudates, ulcers, masses, thrush or mucositis. Oropharynx clear. Tongue normal. Neck Supple without masses or thyromegaly. No jugular venous distension. Hematologic/Lymphatic No petechiae or purpura. No tender or palpable lymph nodes in the cervical or supraclavicular areas. Respiratory Lungs are clear to auscultation without rhonchi or wheezing. Cardiovascular Regular rate and rhythm of heart without murmurs,clicks, gallops or rubs. Breasts Abdomen Non-tender, non-distended, no masses, or ascites. Good bowel sounds noted in all quads. No guarding or rebound tenderness. No pulsatile masses. Back/Spine Non-tender to palpation. Extremities No visible deformities, no cyanosis, clubbing or edema. Musculoskeletal No tenderness or swelling, normal range of motion without obvious weakness. Integumentary Has new rash in both axilla but left is worse than the right. Rash is noted to have some brown pigmentation in the top of the axilla area and redness in the lower area. No vesicles or wheels, slight raised lesions. He states it is not really itching, but occasionally does itch some. It is not painful but some tenderness on deep palpation. It started about 4-5 days ago. Neurologic No sensory or motor deficits, normal cerebellar function, normal gait. Psychiatric Alert and oriented times three. Coherent speech. Verbalizes understanding of our discussions today. Laboratory:Test performed on Jun 04, 2021 08:31 Sodium 142 mmol/L Potassium 3.4 mmol/L Chloride 105 mmol/L CO2 23 mmol/L Anion Gap 17.4 BUN 19 mg/dL Creatinine 0.9 mg/dL Cr Clearance (Est) 92.0600 mL/min Glucose 151 mg/dL Osmolality - Calculated 299 mOsm/kg Calcium 7.9 mg/dL Protein, Total 6.7 g/dL Albumin 3.7 g/dL Globulin 3.0 g/dL Bilirubin, Total 0.2 mg/dL ALT (SGPT) 7 U/L AST (SGOT) 10 U/L Alkaline Phosphatase 234 IU/L WBC 9.1 10 3/uL Manual Segs % 53 % Manual Bands % 12.0 % RBC 4.37 10 6/uL HGB 12.3 g/dL Manual Lymphs % 23 % Atypical Lymphs % 0.0 % HCT 39.8 % MCV 91.1 fl Total Cells Counted 100 Manual Monos % 9.0 % MCH 28.1 pg Manual Eos % 1 % MCHC 30.9 g/dL Manual Basos % 0.0 % RDW 15.9 % Metamyelocytes % 1.0 % Platelet Count 139 10 3/cmm MPV 10.7 fL Myelocytes % 1.0 % CBC Slide Review Slide Review Perform Platelet Estimate Decreased Manual Segs Abs 4.8 10/cmm Manual Bands Abs 1.1 10 3/cmm Manual Neutrophils Abs 5.9 10 3/cmm Manual Lymphocytes Abs 2.1 10 3/cmm Manual Monocytes Abs 0.8 10 3/cmm Manual Eosinophils Abs 0.0 10 3/cmm Manual Basophils Abs 0.0 10 3/cmm PSA 31.980 ng/mL Impression: Recurrent prostate cancer status post cystoscopy and excision in February 2015 followed by combined androgen blockade with Zoladex and Casodex. with gradual increasing PSA while on combined androgen blockade Initially he was diagnosed prostate cancer in 1999- at that time he underwent retropubic radical prostatectomy. Status post radiation therapy in 2010 for increasing PSA and lymphadenopathy. Hematuria/dysuria since February 2015. CT scan of abdomen pelvis done on 03/02/2018 showed soft tissue mass measuring 2.2 cm x 3.2 x 2.9 in the expected location of the prostate inseparable from the urinary bladder floor urinary bladder wall is diffusely thickened and there is a soft tissue attenuation between the soft tissue mass in the anterior infra levator rectal wall, rectal lesion not excluded Seen by Dr. Edwards on 10/24/2017 and his impression was changes in the rectum are probably due to prostate invasion rather than primary rectal lesion. 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 Mr Kauffman was seen by Dr Lloyd for persistent UTI symptoms post op and was placed on terminal system operator antibiotics. His symptoms resolved and he began recommended chemotherapy with docetaxel on 03/14/2018. Mr. Kauffman has tolerated the chemotherapy relatively well. He did have chemotherapy-induced neutropenia on day 8 of cycle 1. His initial ANC at time of treatment on 03/14/2018 was 13,300 on day 8 his ANC was 600. CT PET scan done on 05/06/2018 showed no evidence for recurrent or residual malignancy., Tiny scattered pelvic nodes are radiographically benign and FDG negative, no findings to indicate osseous metastatic disease and left-sided hydronephrosis is present and a ureteral catheter is in place. PSA checked on 05/15/2018 showed 1.81 compared to 6.49 on 03/14/2018 when chemotherapy with Taxotere was started And concluded his chemotherapy with Taxotere e.g. 6 doses on 06/27/2018 Status post left ureteral stent placement on 05/22/2018 Again replaced on 09/21/2018 Went to [facility] on 09/07/2018,Choline C 11 scan done on 09/07/2018 showed large choline avid recurrence in the prostatectomy bed involving the posterior bladder base has improved since prior exam, however suspicious new small focus of choline avid disease along the right posterior bladder wall. New choline avid node metastatic disease including a right supraclavicular node. And increasing pulmonary infiltrate and/or atelectasis in the posterior lower lobes with reactive choline activity. so he was started on Zytiga/prednisone for one year along with an 3 monthly Zoladex. Mr Kauffman returned to the [facility] on 12/25/2018 and had choline C 11 scan done on same date showed when compared with choline scan done on 09/07/2018, increased choline uptake is seen again in the prostatectomy bed on the left and involving the posterior bladder base is essentially unchanged from the previous scan. The small lymph nodes with choline uptake seen on the previous scans are unchanged the pulmonary infiltrates have decreased. No new sites of abnormal choline uptake are noted. Clinically, patient was doing reasonably, but recently had evidence of disease progression confirmed with CT PET choline and progressive PSA. Mr Kauffman went to [facility] for follow-up and now palliative chemotherapy with cabazitaxel is recommended. Mr Kauffman had disease progression on Zytiga, which he was tolerating well but presented with progressive disease and he was also on 3 monthly Zoladex. At that point, Mr Kauffman has discontinued Xtandi and role of cabazitaxel was discussed. The treatment plan was cabazitaxel 20 mg/m??? every 3 weeks along with Neulasta to prevent chemotherapy-induced neutropenia as patient is a high risk. The initial plan was for him to receive 4 cycles of chemotherapy as recommended by [facility] and then reported back to that clinic for follow-up evaluation including scans. Mr Kauffman was advised to pursue treatment with cabazitaxel with Neulasta support. Mr. Kauffman underwent right Port-A-Cath placement in the SVC/RA junction per Dr. Caballero at [facility] on February 14, 2020. He began his first cycle on 02/21/2020. He continues with every 3-month Zoladex. His last injection was given on April 29, 2020. He is currently off of all prednisone.And completed 8 cycles of Jevtana on July 23, 2020 And follow-up CT PET scan done on September 05, 2020 showed bladder metastatic disease with predominant involvement of left ureterovesical region and local invasion into pelvis including involvement of left pubic bone and there is nodularity at right ureterovesical region with involvement of distal right ureter resulting in moderate hydronephrosis Mild uptake within the subcentimeter left para-aortic lymph node is indeterminate., Patient is being followed by Dr. Lloyd, case was discussed with Dr. Lewis at [facility], he is recommended to discontinue Jevtana and start on apalutamide along with Zoladex and also low-dose dexamethasone and may consider consultation with radiation oncology regarding involved field radiation therapy. He went to [facility] for follow-up on 06/29/2019. He underwent PET/CT choline which showed likely tumor at the left of urethral vesicle junction has SUV of 4.5 compared to 3.4 on 12/25/2018. Nonspecific activity to the right of urethrovesical junction has SUV of 1.8 compared to 2.1 previously. Likely tumor involving left sided urinary bladder including the left ureterovesical junction has SUV of 6.2 compared to 6.6 previously. Likely metastatic activity in the proximal right external iliac lymph node has SUV of 2.6 versus 2.2 previously. Nonspecific activity along the right common iliac vessels and adjacent to lumbar degenerative changes as current SUV of 2.9 versus 2.1 previously and his PSA was 2.5. based on these findings, Dr. Lewis recommended continue with Zoladex but discontinue Zytiga and taper off prednisone. Initiate xtandi and underwent follow-up CT PET on December 27, 2019 at [facility] which showed disease progression when compared with scan done on June 28, 2019 and showed malignant appearing choline activity along the urinary bladder oneal has increased,, prominent disease in the left UVJ region has current SUV of 9.7 versus 6.2 on June 2019. Metastatic appearing nodularity in the fat to the right of the urinary bladder anteriorly has increased. Approximate 1.7 x 1.3 cm right external iliac node measuring 0.7 x 0.5 cm on June 28, 2019 and now with SUV of 6 compared to 2.6 at that time. A likely metastatic right common iliac node now measures 1.8 x 1.2 cm versus 1 x 0.7 cm on June 28, 2019. Multiple nodes in the thorax shows interval increase activity compared to June 28, 2019, these are nonspecific could be due to granulomatous inflammation. As far as his left pelvic pain is concern, which is under control and left nephrostomy tube was suggested rather than continuing with ureteral stent exchanges every couple of months. Mr Kauffman was seen by Dr. Lewis and MSI/BRCA 1 and 2 were checked and both came back negative- so no role of immunotherapy with pembrolizumab and olaparib. Clinical trial was also considered but considering patient's age and overall condition, further chemotherapy with cabazitaxel was recommended and patient agreed. And he was advised to continue Xtandi until cabazitaxel is planned. Mr Kauffman began his first cycle of cabazitaxel on February 21, 2020. His Zoladex was last given on 01/28/2020. Mr Kauffman underwent choline CT PET scan after 4 doses of Jevtana at [facility] which was done on May 09, 2020 showed stable to mildly improved choline avid bladder and pelvic node metastatic disease. Enlarging subcentimeter left periaortic retroperitoneal nodes with low-grade colon activity, technically indeterminate for new nodes metastatic disease., Could be reactive. Patient was evaluated by on May 13, 2020 and his recommendations were to continue with Jevtana for 4 more cycles and then repeat: CT PET scan and also continue with 3 monthly Zoladex. And continue left ureteral stent exchanges locally. He continues with treatment. Patient completed total 8 cycles of Jevtana on July 23, 2020 And Followup Choline PET/CT scan on September 05, 2020 reported bladdrmetastatic disease with predominant involvement of left ureterovesical region and local invasion into pelvis including involvement of left pubic bone. The nodularity at right ureterovesical region with involvement of distal right ureter resulting in moderate right hydronephrosis, which may be new; Mild uptake within the subcentimeter left para-aortic node is indeterminate; Uptake within mediastinal and bilateral hilar nodes is nonspecific Followup choline CT PET scan done on April 22, 2021 shows overall progression of metabolic prostate cancer within the urinary bladder and progressive invasion of left pubic bone. Extensive new and progressive presumed lymph node metastasis within the retroperitoneal right iliac chain persistent right moderate hydronephrosis Mr Kauffman had telemedicine follow-up with Dr. Lewis on May 11, 2021. Per Dr Lewis's his note, he recommended Jevtana plus/minus carboplatin or olaparib or Rubraca based on prior evidence of mutation. It was recommended to have follow-up evaluation or scans after 3 cycles of Jevtana or 3 months of olaparib. Mr Kauffman began singel agent Jevtana on 05/28/2021. He continues to receive Zoladex???his last dose was May 20, 2021. Also bone support with denosumab was initiated on 05/28/2021. Plan/Problems Addressed at this Visit: Mr. Kauffman was seen by Dr. Alcazar on May 20, 2021 and discussed the current plan of care. The current plan of care will be to resume the Jevtana single agent for now and add denosumab for the bone involvement. Given Mr. Kauffman's performance status, the current plan of care is to resume the Jevtana for now and may consider adding olaparib or carboplatin in the future. For now he will also receive growth factors with Neulasta. 1. Proceed with cycle one Jevtana. This is day 8. He received day 1 of cycle one on May 28, 2021. He also had Neulasta Onpro. 2. Zoladex last given on May 20, 2021. 3. Denosumab for bone support was given on May 18, 2021. 4. Today's labs reviewed in detail and discussed with . Mrs. Kauffman a copy was given to them. WBC 9.1, hemoglobin 12.3, platelets 139,000, ANC is 5900. Potassium 3.4 random glucose 151 creatinine 0.9 and LFTs are normal. Last documented PSA was on March 03, 2021 at which time it was 22.36. Repeat PSA today was 31.980. 5. We will have him return in 2 weeks which time will he will be due for Jevtana. I have asked for a CBC CMP and PSA for that visit as well. 6. MrAilyn and Mrs. Kauffman were encouraged to contact us in interim should questions or problems arise. Signed By: Yesenia Gordon-, [facility] Tom Alcazar MD <<Signature on File>>
== END 2021-06-04 06:35 | disposition home or self-care (01) ==
LOC: ONCMED 06:34
PROVIDERS: PCP Nurse Practitioner; Visit Provider Nurse Practitioner
DX: C61 Malignant neoplasm of prostate (principal); C78.5 Secondary malignant neoplasm of large intestine and rectum; R97.20 Elevated prostate specific antigen [PSA]; N02.9 Recurrent and persistent hematuria with unspecified morphologic changes; R30.0 Dysuria; D70.1 Agranulocytosis secondary to cancer chemotherapy; T45.1X5A Adverse effect of antineoplastic and immunosuppressive drugs, initial encounter; Z79.818 Long term (current) use of other agents affecting estrogen receptors and estrogen levels; Z79.899 Other long term (current) drug therapy; Z92.21 Personal history of antineoplastic chemotherapy
CPT/HCPCS: 36591; 80053; 84153; 85007; 85025; 99214

== ENCOUNTER 2021-06-17 09:59 | Outpatient (CLI) | payer MEDICARE, OTHER, SELFPAY ==
[2021-06-17 10:49] LABS: Basophils # 0.1 10^3/uL (0.0-0.1); Basophils % 0.7 %; Eosinophils # 0.1 10^3/uL (0.0-0.8); Eosinophils % 0.8 %; Lymphocytes # 1.9 10^3/uL (0.8-4.8); Lymphocytes % 12.9 %; Mean Corpuscular HGB Conc 31.1 g/dL (30.0-36.0); Mean Corpuscular Hemoglobin 27.7 pg (28.0-34.0); Mean Corpuscular Volume 88.9 fl (80-94); Mean Platelet Volume 9.8 fL (7.4-10.4); Monocytes # 1.3 10^3/uL (0.2-0.9); Monocytes % 8.7 %; Neutrophils # 11.16 10^3/uL (1.8-7.7); Neutrophils % 76.2 %; Nucleated Red Blood Cells % 0 %; Platelet Count 267 10^3/cmm (130-400); Red Blood Count 5.06 10^6/uL (4.1-5.3); White Blood Count 14.7 10^3/uL (4.0-10.0)
[2021-06-17 11:30] LABS: Alanine Aminotransferase 13 U/L (0-41); Albumin Level 4.2 g/dL (3.5-5.2); Alkaline Phosphatase 61 IU/L (40-130); Anion Gap 19.4 (5-19); Aspartate Amino Transferase 15 U/L (0-40); Blood Urea Nitrogen 29 mg/dL (8-23); Calcium 9.4 mg/dL (8.5-10.5); Carbon Dioxide 20 mmol/L (22-29); Chloride 101 mmol/L (98-107); Glucose 146 mg/dL (65-115); Osmolality Calculated 290 mOsm/kg (285-295); Potassium 4.4 mmol/L (3.5-5.1); Sodium 136 mmol/L (136-145); Total Bilirubin 0.3 mg/dL (0.15-1.2); Total Protein 7.2 g/dL (6.6-8.7)
== END 2021-06-17 10:00 | disposition home or self-care (01) ==
LOC: ONCMED 10:02
PROVIDERS: PCP Nurse Practitioner; Visit Provider Internal Medicine Hematology & Oncology
DX: C61 Malignant neoplasm of prostate (principal)
CPT/HCPCS: 36591; 80053; 84153; 85025

== ENCOUNTER 2021-06-18 06:32 | Outpatient (CLI) | payer MEDICARE, OTHER, SELFPAY ==
[2021-06-18] MEDS: sodium chloride 0.9% 250 ML 75 ML IV (09:30)
[2021-06-18] MEDS: diphenhydrAMINE 50 mg/mL SDV 1mL 25 MG IV (09:30)
[2021-06-18] MEDS: famotidine 20 mg/2 mL INJ IVP (09:31)
[2021-06-18] MEDS: palonosetron 0.25 mg/5 mL SDV IV (09:32)
[2021-06-18] MEDS: pegfilgrastim 6 mg/0.6 mL Kit (onpro) SUBCUT (11:20)
--- NOTE | 2021-06-19 12:14 | ONC FU_ITS ---
Dr. Alcazar follow up note Patient: Alex Kauffman Unit #: [id number]: [id number] Dicatated By: Tom Alcazar M.D.Date of Visit:Jun 18, 2021 Onc Med Follow-up/Prog Note History of Present Illness: Mr. Kauffman is a 80-year-old gentleman with long-standing history of prostate cancer. Initially, he was diagnosed with prostate cancer in May 2000. At that time, his PSA was 9 and a biopsy showed 2+ 2/3+4/3+3 with the largest volume equal 3+4. Underwent radical retropubic prostatectomy in June 2000. He was followed with PSA postoperatively and during follow-up it was noted his PSA was increasing but slowly. Finally in 2010 it was felt he needed further treatment. He was treated with radiation therapy which he completed in March 2011. It showed good response with PSA down to 0.05. During follow-up in November 2012, his PSA gone up to 0.21; in May 2013 up to 0.35 and in November 2013 it was 0.93. In February 2015, he underwent cystoscopic examination found to have local recurrence. It was resected and confirmed to be poorly differentiated prostate cancer. At that time he was started on combined androgen blockade postop. His treatment was complicated by recurrent hematuria and burning micturition. Follow-up lab showed a gradual increase in his PSA level and from 07/06/2017 it was 2.5 earlier while on combined androgen blockade. On 12/21/2017, he underwent cystoscopy with transurethral resection of a bladder lesion, cystourethroscopy with placement of ureteral stent on left side and dilation of urethra. 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 Mr Kauffman has had persistent urine tract infection and recently finished course of Levaquin. Repeat urinalysis on 02/16/2018 showed persistent urine tract infection: leukoesterase positive and persistent RBCs and WBCs on microscopic evaluation. Mr Kauffman reported he did notice pus drops every time after he finish his urination. His case was discussed with Dr. Lloyd, urologist, and he was referred for possible cystoscopy to rule out postsurgical abscess or other source of infection- before we started chemotherapy. Mr Kauffman reported that he has seen Dr. Lloyd. Dr Lloyd replaced the urinary stent and did notice lots of urinary debris. Mr Kauffman was started on long-term antibiotics with Hiprex 1 g by mouth daily. He began his first dose of docetaxel on 03/14/2018. He was not given Neulasta as he did not have insurance approval at the time of chemotherapy. He did have significant neutropenia on day 8 with an ANC of 600. He did not have symptoms and gradually recovered. He did qualify for Neulasta administration with cycle 2 and Concluded his chemotherapy e.g. 6 doses on 06/27/2018 He went to [facility] on 09/07/2018 and as per patient and his , patient was started on Zytiga/prednisone for one year in addition to Zoladex every 3 months as scans done at [facility] showed excellent response to chemotherapy but persistent lung nodule and pelvic lesion and his PSA done there was around 1. We will obtain follow-up note from [facility] and review. On 09/21/2018 patient had left ureteral stent replacement. Mr Kauffman went to [facility] for follow-up on 12/25/2018 and had choline C 11 scan done, when compared with one from 09/07/2018, showed increased choline uptake is again seen in the prostatectomy bed on the left and involving the posterior bladder base is essentially unchanged from the previous scan. The small lymph nodes with choline uptake seen on the previous scan are unchanged. The pulmonary infiltrate have decreased. No new sites of abnormal choline uptake are noted. He was Tolerating ADT with Zoladex and Zytiga/prednisone well. He went to [facility] for follow-up on 06/29/2019. He underwent PET/CT choline which showed likely tumor at the left of urethral vesicle junction has SUV of 4.5 compared to 3.4 on 12/25/2018. Nonspecific activity to the right of urethrovesical junction has SUV of 1.8 compared to 2.1 previously. Likely tumor involving left sided urinary bladder including the left ureterovesical junction has SUV of 6.2 compared to 6.6 previously. Likely metastatic activity in the proximal right external iliac lymph node has SUV of 2.6 versus 2.2 previously. Nonspecific activity along the right common iliac vessels and adjacent to lumbar degenerative changes as current SUV of 2.9 versus 2.1 previously and his PSA was 2.5. based on these findings, Dr. Lewis recommended continue with Zoladex but discontinue Zytiga and taper off prednisone. Initiate xtandi and underwent follow-up CT PET on December 27, 2019 at [facility] which showed disease progression when compared with scan done on June 28, 2019 and showed malignant appearing choline activity along the urinary bladder oneal has increased,, prominent disease in the left UVJ region has current SUV of 9.7 versus 6.2 on June 2019. Metastatic appearing nodularity in the fat to the right of the urinary bladder anteriorly has increased. Approximate 1.7 x 1.3 cm right external iliac node measuring 0.7 x 0.5 cm on June 28, 2019 and now with SUV of 6 compared to 2.6 at that time. A likely metastatic right common iliac node now measures 1.8 x 1.2 cm versus 1 x 0.7 cm on June 28, 2019. Multiple nodes in the thorax shows interval increase activity compared to June 28, 2019, these are nonspecific could be due to granulomatous inflammation. As far as his left pelvic pain is concern, which is under control and left nephrostomy tube was suggested rather than continuing with ureteral stent exchanges every couple of months. Mr Kauffman was seen by Dr. Lewis and MSI/BRCA 1 and 2 were checked and both came back negative- so no role of immunotherapy with pembrolizumab and olaparib. Clinical trial was also considered but considering patient's age and overall condition, further chemotherapy with cabazitaxel was recommended and patient agreed. And he was advised to continue Xtandi until cabazitaxel is planned. Mr Kauffman began his first cycle of cabazitaxel on February 21, 2020. His Zoladex was last given on 01/28/2020. Mr Kauffman underwent choline CT PET scan after 4 doses of Jevtana at [facility] which was done on May 09, 2020 showed stable to mildly improved choline avid bladder and pelvic node metastatic disease. Enlarging subcentimeter left periaortic retroperitoneal nodes with low-grade colon activity, technically indeterminate for new nodes metastatic disease., Could be reactive. Patient was evaluated by on May 13, 2020 and his recommendations were to continue with Jevtana for 4 more cycles and then repeat: CT PET scan and also continue with 3 monthly Zoladex. And continue left ureteral stent exchanges locally. He continues with treatment.Patient completed total 8 cycles of Jevtana on July 23, 2020 And Followup Choline PET/CT scan on September 05, 2020 reported bladdrmetastatic disease with predominant involvement of left ureterovesical region and local invasion into pelvis including involvement of left pubic bone. The nodularity at right ureterovesical region with involvement of distal right ureter resulting in moderate right hydronephrosis, which may be new; Mild uptake within the subcentimeter left para-aortic node is indeterminate; Uptake within mediastinal and bilateral hilar nodes is nonspecific Mr Kauffman is being followed by Dr. 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 He is scheduled see Dr. Lloyd on November 08, 2019 for possible left ureteral stent change. His prostate cancer was discussed with Dr. Lewis at [facility] in [facility]. Dr Lewis has recommended apalutamide or darolutamide while continuing with Zoladex and also consider low-dose dexamethasone. , Xtandi was discontinued and follow-up: Followup choline CT PET scan done on April 22, 2021 shows overall progression of metabolic prostate cancer within the urinary bladder and progressive invasion of left pubic bone. Extensive new and progressive presumed lymph node metastasis within the retroperitoneal right iliac chain persistent right moderate hydronephrosis Mr Kauffman had telemedicine follow-up with Dr. Lewis on May 11, 2021. Per Dr Lewis's his note, he recommended Jevtana plus/minus carboplatin or olaparib or Rubraca based on prior evidence of mutation. It was recommended to have follow-up evaluation or scans after 3 cycles of Jevtana or 3 months of olaparib., Patient was started on Jevtana q. 21 days on May 28, 2021 and plan to give him 3 cycles followed by choline CT PET scan Came for follow-up, denies any specific complaint, no fever chills, no nausea or vomiting, no diarrhea constipation, no dysuria hematuria, patient recently underwent ureteral stenting and now he is using his Loredo's cath on as-needed basis, overall feeling well tolerated cycle of chemotherapy with Donta well. Medications: AZO Yeast Plus 1 Tablet Oral daily PRN, Hiprex 1 Tablet (of 1 G) Oral b.i.d., MetFORMIN HCl 1 Tablet (of 500 mg) Oral daily, oxyCODONE-Acetaminophen 1 Tablet (of 5-325 mg) Oral q 4 to 6 hours PRN, Vitamin C 1 Tablet (of 1 G) Oral daily Allergies: Cipro, Penicillins, and Sulfa Antibiotics. Review of Systems: Review of Systems is not available for this patient. Vital Signs: Performed on Jun 18, 2021 08:23 Height - 67.00 in Weight - 210.6 lbs (HIGH) BSA - 2.07 sq.m BMI - 32.98 (HIGH) Temperature - 96.4 F (LOW) Pulse - 96 /min Respiration - 18 /min BP - 119/72 mm(hg) O2 Sat - 96 % Pain - 0 Fatigue - 0 Performance Status: 1 - No physically strenuous activity, but ambulatory and able to carry out light or sedentary work (e.g. office work, light house work). (ECOG) Physical Examination: ENMT - No mouth sores, no thrush, no jaundice, Respiratory - Lungs are clear to auscultation, Cardiovascular - Regular rate and rhythm of heart, Abdomen - Soft, bowel sounds present, Extremities - Trace edema bilaterally. Lab/Imaging: Test performed on Jun 04, 2021 08:31 Sodium 142 mmol/L Potassium 3.4 mmol/L Chloride 105 mmol/L CO2 23 mmol/L Anion Gap 17.4 BUN 19 mg/dL Creatinine 0.9 mg/dL Cr Clearance (Est) 92.0600 mL/min Glucose 151 mg/dL Osmolality - Calculated 299 mOsm/kg Calcium 7.9 mg/dL Protein, Total 6.7 g/dL Albumin 3.7 g/dL Globulin 3.0 g/dL Bilirubin, Total 0.2 mg/dL ALT (SGPT) 7 U/L AST (SGOT) 10 U/L Alkaline Phosphatase 234 IU/L WBC 9.1 10 3/uL Manual Segs % 53 % Manual Bands % 12.0 % RBC 4.37 10 6/uL HGB 12.3 g/dL Manual Lymphs % 23 % Atypical Lymphs % 0.0 % HCT 39.8 % MCV 91.1 fl Total Cells Counted 100 Manual Monos % 9.0 % MCH 28.1 pg Manual Eos % 1 % MCHC 30.9 g/dL Manual Basos % 0.0 % RDW 15.9 % Metamyelocytes % 1.0 % Platelet Count 139 10 3/cmm MPV 10.7 fL Myelocytes % 1.0 % CBC Slide Review Slide Review Perform Platelet Estimate Decreased Manual Segs Abs 4.8 10/cmm Manual Bands Abs 1.1 10 3/cmm Manual Neutrophils Abs 5.9 10 3/cmm Manual Lymphocytes Abs 2.1 10 3/cmm Manual Monocytes Abs 0.8 10 3/cmm Manual Eosinophils Abs 0.0 10 3/cmm Manual Basophils Abs 0.0 10 3/cmm PSA 31.980 ng/mL Test performed on Mar 03, 2021 10:00 Neutrophils 6.03 10 3/uL Lymphocytes 2.0 10 3/uL Monocytes 0.6 10 3/uL Eosinophils 0.2 10 3/uL Basophils 0.1 10 3/uL Neutrophil % 66.1 % Lymphocyte % 22.4 % Monocyte % 7.0 % Eosinophil % 2.0 % Basophils % 0.7 % NRBC % 0 % Impression: Recurrent prostate cancer status post cystoscopy and excision in February 2015 followed by combined androgen blockade with Zoladex and Casodex. with gradual increasing PSA while on combined androgen blockade Initially he was diagnosed prostate cancer in 1999- at that time he underwent retropubic radical prostatectomy. Status post radiation therapy in 2010 for increasing PSA and lymphadenopathy. Hematuria/dysuria since February 2015. CT scan of abdomen pelvis done on 03/02/2018 showed soft tissue mass measuring 2.2 cm x 3.2 x 2.9 in the expected location of the prostate inseparable from the urinary bladder floor urinary bladder wall is diffusely thickened and there is a soft tissue attenuation between the soft tissue mass in the anterior infra levator rectal wall, rectal lesion not excluded Seen by Dr. Edwards on 10/24/2017 and his impression was changes in the rectum are probably due to prostate invasion rather than primary rectal lesion. 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 His symptoms resolved and he began recommended chemotherapy with docetaxel on 03/14/2018. Mr. Kauffman has tolerated the chemotherapy relatively well. He did have chemotherapy-induced neutropenia on day 8 of cycle 1. His initial ANC at time of treatment on 03/14/2018 was 13,300 on day 8 his ANC was 600. CT PET scan done on 05/06/2018 showed no evidence for recurrent or residual malignancy., Tiny scattered pelvic nodes are radiographically benign and FDG negative, no findings to indicate osseous metastatic disease and left-sided hydronephrosis is present and a ureteral catheter is in place. PSA checked on 05/15/2018 showed 1.81 compared to 6.49 on 03/14/2018 when chemotherapy with Taxotere was started And concluded his chemotherapy with Taxotere e.g. 6 doses on 06/27/2018 Status post left ureteral stent placement on 05/22/2018 Again replaced on 09/21/2018 Went to [facility] on 09/07/2018,Choline C 11 scan done on 09/07/2018 showed large choline avid recurrence in the prostatectomy bed involving the posterior bladder base has improved since prior exam, however suspicious new small focus of choline avid disease along the right posterior bladder wall. New choline avid node metastatic disease including a right supraclavicular node. And increasing pulmonary infiltrate and/or atelectasis in the posterior lower lobes with reactive choline activity. so he was started on Zytiga/prednisone for one year along with an 3 monthly Zoladex. Mr Kauffman returned to the [facility] on 12/25/2018 and had choline C 11 scan done on same date showed when compared with choline scan done on 09/07/2018, increased choline uptake is seen again in the prostatectomy bed on the left and involving the posterior bladder base is essentially unchanged from the previous scan. The small lymph nodes with choline uptake seen on the previous scans are unchanged the pulmonary infiltrates have decreased. No new sites of abnormal choline uptake are noted. Clinically, patient was doing reasonably, but recently had evidence of disease progression confirmed with CT PET choline and progressive PSA. Mr Kauffman went to [facility] for follow-up and now palliative chemotherapy with cabazitaxel is recommended. Mr Kauffman had disease progression on Zytiga, which he was tolerating well but presented with progressive disease and he was also on 3 monthly Zoladex. At that point, Mr Kauffman has discontinued Xtandi and role of cabazitaxel was discussed. The treatment plan was cabazitaxel 20 mg/m??? every 3 weeks along with Neulasta to prevent chemotherapy-induced neutropenia as patient is a high risk. The initial plan was for him to receive 4 cycles of chemotherapy as recommended by [facility] and then he will go to clinic for follow-up evaluation including scans. Mr Kauffman was advised to pursue treatment with cabazitaxel with Neulasta support. Mr. Kauffman underwent right Port-A-Cath placement in the SVC/RA junction per Dr. Caballero at [facility] [place] [place] on February 14, 2020. He began his first cycle on 02/21/2020. He continues with every 3-month Zoladex. His last injection was given on April 29, 2020. He is currently off of all prednisone.And completed 8 cycles of Jevtana on July 23, 2020 And follow-up CT PET scan done on September 05, 2020 showed bladder metastatic disease with predominant involvement of left ureterovesical region and local invasion into pelvis including involvement of left pubic bone and there is nodularity at right ureterovesical region with involvement of distal right ureter resulting in moderate hydronephrosis Mild uptake within the subcentimeter left para-aortic lymph node is indeterminate., Patient is being followed by Dr. Lloyd, case was discussed with Dr. Lewis at [facility], he is recommended to discontinue Jevtana and start on apalutamide along with Zoladex and also low-dose dexamethasone and may consider consultation with radiation oncology regarding involved field radiation therapy. He went to [facility] for follow-up on 06/29/2019. He underwent PET/CT choline which showed likely tumor at the left of urethral vesicle junction has SUV of 4.5 compared to 3.4 on 12/25/2018. Nonspecific activity to the right of urethrovesical junction has SUV of 1.8 compared to 2.1 previously. Likely tumor involving left sided urinary bladder including the left ureterovesical junction has SUV of 6.2 compared to 6.6 previously. Likely metastatic activity in the proximal right external iliac lymph node has SUV of 2.6 versus 2.2 previously. Nonspecific activity along the right common iliac vessels and adjacent to lumbar degenerative changes as current SUV of 2.9 versus 2.1 previously and his PSA was 2.5. based on these findings, Dr. Lewis recommended continue with Zoladex but discontinue Zytiga and taper off prednisone. Initiate xtandi and underwent follow-up CT PET on December 27, 2019 at [facility] which showed disease progression when compared with scan done on June 28, 2019 and showed malignant appearing choline activity along the urinary bladder oneal has increased,, prominent disease in the left UVJ region has current SUV of 9.7 versus 6.2 on June 2019. Metastatic appearing nodularity in the fat to the right of the urinary bladder anteriorly has increased. Approximate 1.7 x 1.3 cm right external iliac node measuring 0.7 x 0.5 cm on June 28, 2019 and now with SUV of 6 compared to 2.6 at that time. A likely metastatic right common iliac node now measures 1.8 x 1.2 cm versus 1 x 0.7 cm on June 28, 2019. Multiple nodes in the thorax shows interval increase activity compared to June 28, 2019, these are nonspecific could be due to granulomatous inflammation. As far as his left pelvic pain is concern, which is under control and left nephrostomy tube was suggested rather than continuing with ureteral stent exchanges every couple of months. Mr Kauffman was seen by Dr. Lewis and MSI/BRCA 1 and 2 were checked and both came back negative- so no role of immunotherapy with pembrolizumab and olaparib. Clinical trial was also considered but considering patient's age and overall condition, further chemotherapy with cabazitaxel was recommended and patient agreed. And he was advised to continue Xtandi until cabazitaxel is planned. Mr Kauffman began his first cycle of cabazitaxel on February 21, 2020. His Zoladex was last given on 01/28/2020. Mr Kauffman underwent choline CT PET scan after 4 doses of Jevtana at [facility] which was done on May 09, 2020 showed stable to mildly improved choline avid bladder and pelvic node metastatic disease. Enlarging subcentimeter left periaortic retroperitoneal nodes with low-grade colon activity, technically indeterminate for new nodes metastatic disease., Could be reactive. Patient was evaluated by on May 13, 2020 and his recommendations were to continue with Jevtana for 4 more cycles and then repeat: CT PET scan and also continue with 3 monthly Zoladex. And continue left ureteral stent exchanges locally. He continues with treatment. Patient completed total 8 cycles of Jevtana on July 23, 2020 And Followup Choline PET/CT scan on September 05, 2020 reported bladdrmetastatic disease with predominant involvement of left ureterovesical region and local invasion into pelvis including involvement of left pubic bone. The nodularity at right ureterovesical region with involvement of distal right ureter resulting in moderate right hydronephrosis, which may be new; Mild uptake within the subcentimeter left para-aortic node is indeterminate; Uptake within mediastinal and bilateral hilar nodes is nonspecific Followup choline CT PET scan done on April 22, 2021 shows overall progression of metabolic prostate cancer within the urinary bladder and progressive invasion of left pubic bone. Extensive new and progressive presumed lymph node metastasis within the retroperitoneal right iliac chain persistent right moderate hydronephrosis Mr Kauffman had telemedicine follow-up with Dr. Lewis on May 11, 2021. Per Dr Lewis's his note, he recommended Jevtana plus/minus carboplatin or olaparib or Rubraca based on prior evidence of mutation. It was recommended to have follow-up evaluation or scans after 3 cycles of Jevtana or 3 months of olaparib. Mr Kauffman began singel agent Jevtana on 05/28/2021. He continues to receive Zoladex???his last dose was May 20, 2021. Also bone support with denosumab was initiated on 05/28/2021. Plan: Discussed with patient regarding his labs white blood count 14.7 hemoglobin 14 hematocrit 45 platelets 267,000 CMP within normal limits except glucose 146 PSA 32.76 compared to 31.98 Clinically, patient doing well with no new signs symptoms suggestive of disease progression, tolerating Jevtana well, will proceed with next cycle of chemotherapy with Jevtana today and then he will return to clinic 3 weeks with CBC CMP and PSA if reasonable for next cycle of treatment with Jevtana and after that we will consider follow-up choline CT PET scan. Signed By: Tom Alcazar M.D. <<Signature on File>>
== END 2021-06-18 06:33 | disposition home or self-care (01) ==
LOC: ONCMED 06:32
PROVIDERS: PCP Nurse Practitioner; Visit Provider Internal Medicine Hematology & Oncology
DX: Z51.12 Encounter for antineoplastic immunotherapy (principal); C61 Malignant neoplasm of prostate; R97.20 Elevated prostate specific antigen [PSA]; N02.9 Recurrent and persistent hematuria with unspecified morphologic changes; R30.0 Dysuria; Z79.52 Long term (current) use of systemic steroids; Z79.899 Other long term (current) drug therapy
CPT/HCPCS: 96367; 96372; 96375; 96377; 96413; 99215; J1100; J1200; J2469; J2505; J3490; J7050; J9043

== ENCOUNTER 2021-06-19 07:55 | Outpatient (CLI) | payer MEDICARE, OTHER, SELFPAY ==
--- NOTE | 2021-06-19 07:45 | XR_ITS ---
WS: [id number] KUB, AP view, 06/19/2021 Clinical Data: URETERAL OBSTRUCTION Comparison: KUB, 04/15/2021. Findings: No abnormal intraabdominal masses or calcifications are seen. There is no dilatated small bowel or ev idence of obstruction. There is a left ureteral stent in position. Bilateral percutaneous nephrostomy catheters are present . There is a bladder catheter with contrast material in the balloon. There is a generator overlying t he right lateral abdomen. There are clips in the true pelvis from surgery. 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 XR/XR KUB [id number] Impression: 1. Left ureteral stent. 2. Bilateral percutaneous nephrostomies. 3. Urinary bladder catheter.
== END 2021-06-19 07:56 | disposition home or self-care (01) ==
LOC: RAD 07:58
PROVIDERS: PCP Nurse Practitioner; Visit Provider Urology
DX: N13.5 Crossing vessel and stricture of ureter without hydronephrosis (principal); Z96.0 Presence of urogenital implants; Z93.6 Other artificial openings of urinary tract status
CPT/HCPCS: 74018

== ENCOUNTER 2021-07-08 09:00 | Outpatient (CLI) | payer MEDICARE, OTHER, SELFPAY ==
[2021-07-08 09:37] LABS: Basophils # 0.1 10^3/uL (0.0-0.1); Basophils % 0.6 %; Eosinophils # 0.1 10^3/uL (0.0-0.8); Eosinophils % 0.8 %; Hematocrit 41.7 % (42.0-52.0); Hemoglobin 13.6 g/dL (11.7-16.6); Lymphocytes # 1.9 10^3/uL (0.8-4.8); Lymphocytes % 13.6 %; Mean Corpuscular HGB Conc 32.6 g/dL (30.0-36.0); Mean Corpuscular Hemoglobin 28.2 pg (28.0-34.0); Mean Corpuscular Volume 86.3 fl (80-94); Mean Platelet Volume 9.4 fL (7.4-10.4); Monocytes # 1.3 10^3/uL (0.2-0.9); Neutrophils # 10.69 10^3/uL (1.8-7.7); Neutrophils % 75.4 %; Nucleated Red Blood Cells % 0 %; Platelet Count 201 10^3/cmm (130-400); Red Blood Count 4.83 10^6/uL (4.1-5.3); Red Cell Distribution Width 17.9 % (12.1-15.1); White Blood Count 14.2 10^3/uL (4.0-10.0)
[2021-07-08 10:26] LABS: Alanine Aminotransferase 15 U/L (0-41); Albumin Level 4.2 g/dL (3.5-5.2); Alkaline Phosphatase 71 IU/L (40-130); Aspartate Amino Transferase 15 U/L (0-40); Blood Urea Nitrogen 23 mg/dL (8-23); Calcium 8.6 mg/dL (8.5-10.5); Carbon Dioxide 22 mmol/L (22-29); Chloride 102 mmol/L (98-107); Globulin 2.7 g/dL (1.3-4.6); Glucose 130 mg/dL (65-115); Osmolality Calculated 291 mOsm/kg (285-295); Sodium 138 mmol/L (136-145); Total Bilirubin 0.3 mg/dL (0.15-1.2); Total Protein 6.9 g/dL (6.6-8.7)
[2021-07-08 10:31] LABS: Anion Gap 18.1 (5-19); Potassium 4.1 mmol/L (3.5-5.1)
--- NOTE | 2021-07-08 11:11 | ONC FU_ITS ---
Dr. Alcazar follow up note Patient: Alex Kauffman Unit #: [id number]: 1940 Dicatated By: Tom Alcazar M.D.Date of Visit:Jul 08, 2021 Onc Med Follow-up/Prog Note History of Present Illness: Mr. Kauffman is a 80-year-old gentleman with long-standing history of prostate cancer. Initially, he was diagnosed with prostate cancer in May 2000. At that time, his PSA was 9 and a biopsy showed 2+ 2/3+4/3+3 with the largest volume equal 3+4. Underwent radical retropubic prostatectomy in June 2000. He was followed with PSA postoperatively and during follow-up it was noted his PSA was increasing but slowly. Finally in 2010 it was felt he needed further treatment. He was treated with radiation therapy which he completed in March 2011. It showed good response with PSA down to 0.05. During follow-up in November 2012, his PSA gone up to 0.21; in May 2013 up to 0.35 and in November 2013 it was 0.93. In February 2015, he underwent cystoscopic examination found to have local recurrence. It was resected and confirmed to be poorly differentiated prostate cancer. At that time he was started on combined androgen blockade postop. His treatment was complicated by recurrent hematuria and burning micturition. Follow-up lab showed a gradual increase in his PSA level and from 07/06/2017 it was 2.5 earlier while on combined androgen blockade. On 12/21/2017, he underwent cystoscopy with transurethral resection of a bladder lesion, cystourethroscopy with placement of ureteral stent on left side and dilation of urethra. 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 Mr Kauffman has had persistent urine tract infection and recently finished course of Levaquin. Repeat urinalysis on 02/16/2018 showed persistent urine tract infection: leukoesterase positive and persistent RBCs and WBCs on microscopic evaluation. Mr Kauffman reported he did notice pus drops every time after he finish his urination. His case was discussed with Dr. Lloyd, urologist, and he was referred for possible cystoscopy to rule out postsurgical abscess or other source of infection- before we started chemotherapy. Mr Kauffman reported that he has seen Dr. Lloyd. Dr Lloyd replaced the urinary stent and did notice lots of urinary debris. Mr Kauffman was started on long-term antibiotics with Hiprex 1 g by mouth daily. He began his first dose of docetaxel on 03/14/2018. He was not given Neulasta as he did not have insurance approval at the time of chemotherapy. He did have significant neutropenia on day 8 with an ANC of 600. He did not have symptoms and gradually recovered. He did qualify for Neulasta administration with cycle 2 and Concluded his chemotherapy e.g. 6 doses on 06/27/2018 He went to [facility] on 09/07/2018 and as per patient and his , patient was started on Zytiga/prednisone for one year in addition to Zoladex every 3 months as scans done at [facility] showed excellent response to chemotherapy but persistent lung nodule and pelvic lesion and his PSA done there was around 1. We will obtain follow-up note from [facility] and review. On 09/21/2018 patient had left ureteral stent replacement. Mr Kauffman went to [facility] for follow-up on 12/25/2018 and had choline C 11 scan done, when compared with one from 09/07/2018, showed increased choline uptake is again seen in the prostatectomy bed on the left and involving the posterior bladder base is essentially unchanged from the previous scan. The small lymph nodes with choline uptake seen on the previous scan are unchanged. The pulmonary infiltrate have decreased. No new sites of abnormal choline uptake are noted. He was Tolerating ADT with Zoladex and Zytiga/prednisone well. He went to [facility] for follow-up on 06/29/2019. He underwent PET/CT choline which showed likely tumor at the left of urethral vesicle junction has SUV of 4.5 compared to 3.4 on 12/25/2018. Nonspecific activity to the right of urethrovesical junction has SUV of 1.8 compared to 2.1 previously. Likely tumor involving left sided urinary bladder including the left ureterovesical junction has SUV of 6.2 compared to 6.6 previously. Likely metastatic activity in the proximal right external iliac lymph node has SUV of 2.6 versus 2.2 previously. Nonspecific activity along the right common iliac vessels and adjacent to lumbar degenerative changes as current SUV of 2.9 versus 2.1 previously and his PSA was 2.5. based on these findings, Dr. Lewis recommended continue with Zoladex but discontinue Zytiga and taper off prednisone. Initiate xtandi and underwent follow-up CT PET on December 27, 2019 at [facility] which showed disease progression when compared with scan done on June 28, 2019 and showed malignant appearing choline activity along the urinary bladder oneal has increased,, prominent disease in the left UVJ region has current SUV of 9.7 versus 6.2 on June 2019. Metastatic appearing nodularity in the fat to the right of the urinary bladder anteriorly has increased. Approximate 1.7 x 1.3 cm right external iliac node measuring 0.7 x 0.5 cm on June 28, 2019 and now with SUV of 6 compared to 2.6 at that time. A likely metastatic right common iliac node now measures 1.8 x 1.2 cm versus 1 x 0.7 cm on June 28, 2019. Multiple nodes in the thorax shows interval increase activity compared to June 28, 2019, these are nonspecific could be due to granulomatous inflammation. As far as his left pelvic pain is concern, which is under control and left nephrostomy tube was suggested rather than continuing with ureteral stent exchanges every couple of months. Mr Kauffman was seen by Dr. Lewis and MSI/BRCA 1 and 2 were checked and both came back negative- so no role of immunotherapy with pembrolizumab and olaparib. Clinical trial was also considered but considering patient's age and overall condition, further chemotherapy with cabazitaxel was recommended and patient agreed. And he was advised to continue Xtandi until cabazitaxel is planned. Mr Kauffman began his first cycle of cabazitaxel on February 21, 2020. His Zoladex was last given on 01/28/2020. Mr Kauffman underwent choline CT PET scan after 4 doses of Jevtana at [facility] which was done on May 09, 2020 showed stable to mildly improved choline avid bladder and pelvic node metastatic disease. Enlarging subcentimeter left periaortic retroperitoneal nodes with low-grade colon activity, technically indeterminate for new nodes metastatic disease., Could be reactive. Patient was evaluated by on May 13, 2020 and his recommendations were to continue with Jevtana for 4 more cycles and then repeat: CT PET scan and also continue with 3 monthly Zoladex. And continue left ureteral stent exchanges locally. He continues with treatment.Patient completed total 8 cycles of Jevtana on July 23, 2020 And Followup Choline PET/CT scan on September 05, 2020 reported bladdrmetastatic disease with predominant involvement of left ureterovesical region and local invasion into pelvis including involvement of left pubic bone. The nodularity at right ureterovesical region with involvement of distal right ureter resulting in moderate right hydronephrosis, which may be new; Mild uptake within the subcentimeter left para-aortic node is indeterminate; Uptake within mediastinal and bilateral hilar nodes is nonspecific Mr Kauffman is being followed by Dr. 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 He is scheduled see Dr. Lloyd on November 08, 2019 for possible left ureteral stent change. His prostate cancer was discussed with Dr. Lewis at [facility] in [facility]. Dr Lewis has recommended apalutamide or darolutamide while continuing with Zoladex and also consider low-dose dexamethasone. , Xtandi was discontinued and follow-up: Followup choline CT PET scan done on April 22, 2021 shows overall progression of metabolic prostate cancer within the urinary bladder and progressive invasion of left pubic bone. Extensive new and progressive presumed lymph node metastasis within the retroperitoneal right iliac chain persistent right moderate hydronephrosis Mr Kauffman had telemedicine follow-up with Dr. Lewis on May 11, 2021. Per Dr Lewis's his note, he recommended Jevtana plus/minus carboplatin or olaparib or Rubraca based on prior evidence of mutation. It was recommended to have follow-up evaluation or scans after 3 cycles of Jevtana or 3 months of olaparib., Patient was started on Jevtana q. 21 days on May 28, 2021 and plan to give him 3 cycles followed by choline CT PET scan Came for follow-up, denies any specific complaints, no fever chills, no nausea or vomiting, no diarrhea constipation, patient is gaining weight as per patient he is eating a lot of junk food which he loves. And enjoying good quality of life and tolerating Jevtana well Medications: AZO Yeast Plus 1 Tablet Oral daily PRN, Hiprex 1 Tablet (of 1 G) Oral b.i.d., MetFORMIN HCl 1 Tablet (of 500 mg) Oral daily, oxyCODONE-Acetaminophen 1 Tablet (of 5-325 mg) Oral q 4 to 6 hours PRN, Vitamin C 1 Tablet (of 1 G) Oral daily Allergies: Cipro, Penicillins, and Sulfa Antibiotics. Review of Systems: Review of Systems is not available for this patient. Vital Signs: Performed on Jul 08, 2021 10:58 Height - 67.00 in Weight - 216.4 lbs (HIGH) BSA - 2.09 sq.m BMI - 33.89 (HIGH) Temperature - 97.3 F (LOW) Pulse - 75 /min Respiration - 20 /min BP - 124/71 mm(hg) O2 Sat - 96 % Pain - 0 Fatigue - 4 Performance Status: 0 - Fully active, able to carry on all predisease activities without restrictions. (ECOG) Physical Examination: ENMT - No mouth sores, no thrush, no jaundice, Respiratory - Lungs are clear to auscultation, Cardiovascular - Regular rate and rhythm of heart, Abdomen - Soft, bowel sounds present, Extremities - Trace edema. Lab/Imaging: Test performed on Jun 04, 2021 08:31 Sodium 142 mmol/L Potassium 3.4 mmol/L Chloride 105 mmol/L CO2 23 mmol/L Anion Gap 17.4 BUN 19 mg/dL Creatinine 0.9 mg/dL Cr Clearance (Est) 92.0600 mL/min Glucose 151 mg/dL Osmolality - Calculated 299 mOsm/kg Calcium 7.9 mg/dL Protein, Total 6.7 g/dL Albumin 3.7 g/dL Globulin 3.0 g/dL Bilirubin, Total 0.2 mg/dL ALT (SGPT) 7 U/L AST (SGOT) 10 U/L Alkaline Phosphatase 234 IU/L WBC 9.1 10 3/uL Manual Segs % 53 % Manual Bands % 12.0 % RBC 4.37 10 6/uL HGB 12.3 g/dL Manual Lymphs % 23 % Atypical Lymphs % 0.0 % HCT 39.8 % MCV 91.1 fl Total Cells Counted 100 Manual Monos % 9.0 % MCH 28.1 pg Manual Eos % 1 % MCHC 30.9 g/dL Manual Basos % 0.0 % RDW 15.9 % Metamyelocytes % 1.0 % Platelet Count 139 10 3/cmm MPV 10.7 fL Myelocytes % 1.0 % CBC Slide Review Slide Review Perform Platelet Estimate Decreased Manual Segs Abs 4.8 10/cmm Manual Bands Abs 1.1 10 3/cmm Manual Neutrophils Abs 5.9 10 3/cmm Manual Lymphocytes Abs 2.1 10 3/cmm Manual Monocytes Abs 0.8 10 3/cmm Manual Eosinophils Abs 0.0 10 3/cmm Manual Basophils Abs 0.0 10 3/cmm PSA 31.980 ng/mL Test performed on Mar 03, 2021 10:00 Neutrophils 6.03 10 3/uL Lymphocytes 2.0 10 3/uL Monocytes 0.6 10 3/uL Eosinophils 0.2 10 3/uL Basophils 0.1 10 3/uL Neutrophil % 66.1 % Lymphocyte % 22.4 % Monocyte % 7.0 % Eosinophil % 2.0 % Basophils % 0.7 % NRBC % 0 % Impression: Recurrent prostate cancer status post cystoscopy and excision in February 2015 followed by combined androgen blockade with Zoladex and Casodex. with gradual increasing PSA while on combined androgen blockade Initially he was diagnosed prostate cancer in 1999- at that time he underwent retropubic radical prostatectomy. Status post radiation therapy in 2010 for increasing PSA and lymphadenopathy. Hematuria/dysuria since February 2015. CT scan of abdomen pelvis done on 03/02/2018 showed soft tissue mass measuring 2.2 cm x 3.2 x 2.9 in the expected location of the prostate inseparable from the urinary bladder floor urinary bladder wall is diffusely thickened and there is a soft tissue attenuation between the soft tissue mass in the anterior infra levator rectal wall, rectal lesion not excluded Seen by Dr. Edwards on 10/24/2017 and his impression was changes in the rectum are probably due to prostate invasion rather than primary rectal lesion. 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 Mr Kauffman was seen by Dr Lloyd for persistent UTI symptoms post op and was placed on usp antibiotics. His symptoms resolved and he began recommended chemotherapy with docetaxel on 03/14/2018. Mr. Kauffman has tolerated the chemotherapy relatively well. He did have chemotherapy-induced neutropenia on day 8 of cycle 1. His initial ANC at time of treatment on 03/14/2018 was 13,300 on day 8 his ANC was 600. CT PET scan done on 05/06/2018 showed no evidence for recurrent or residual malignancy., Tiny scattered pelvic nodes are radiographically benign and FDG negative, no findings to indicate osseous metastatic disease and left-sided hydronephrosis is present and a ureteral catheter is in place. PSA checked on 05/15/2018 showed 1.81 compared to 6.49 on 03/14/2018 when chemotherapy with Taxotere was started And concluded his chemotherapy with Taxotere e.g. 6 doses on 06/27/2018 Status post left ureteral stent placement on 05/22/2018 Again replaced on 09/21/2018 Went to [facility] on 09/07/2018,Choline C 11 scan done on 09/07/2018 showed large choline avid recurrence in the prostatectomy bed involving the posterior bladder base has improved since prior exam, however suspicious new small focus of choline avid disease along the right posterior bladder wall. New choline avid node metastatic disease including a right supraclavicular node. And increasing pulmonary infiltrate and/or atelectasis in the posterior lower lobes with reactive choline activity. so he was started on Zytiga/prednisone for one year along with an 3 monthly Zoladex. Mr Kauffman returned to the [facility] on 12/25/2018 and had choline C 11 scan done on same date showed when compared with choline scan done on 09/07/2018, increased choline uptake is seen again in the prostatectomy bed on the left and involving the posterior bladder base is essentially unchanged from the previous scan. The small lymph nodes with choline uptake seen on the previous scans are unchanged the pulmonary infiltrates have decreased. No new sites of abnormal choline uptake are noted. Clinically, patient was doing reasonably, but recently had evidence of disease progression confirmed with CT PET choline and progressive PSA. Mr Kauffman went to [facility] for follow-up and now palliative chemotherapy with cabazitaxel is recommended. Mr Kauffman had disease progression on Zytiga, which he was tolerating well but presented with progressive disease and he was also on 3 monthly Zoladex. At that point, Mr Kauffman has discontinued Xtandi and role of cabazitaxel was discussed. The treatment plan was cabazitaxel 20 mg/m??? every 3 weeks along with Neulasta to prevent chemotherapy-induced neutropenia as patient is a high risk. The initial plan was for him to receive 4 cycles of chemotherapy as recommended by [facility] and then he will go to clinic for follow-up evaluation including scans. Mr Kauffman was advised to pursue treatment with cabazitaxel with Neulasta support. Mr. Kauffman underwent right Port-A-Cath placement in the SVC/RA junction per Dr. Caballero at [facility] on February 14, 2020. He began his first cycle on 02/21/2020. He continues with every 3-month Zoladex. His last injection was given on April 29, 2020. He is currently off of all prednisone.And completed 8 cycles of Jevtana on July 23, 2020 And follow-up CT PET scan done on September 05, 2020 showed bladder metastatic disease with predominant involvement of left ureterovesical region and local invasion into pelvis including involvement of left pubic bone and there is nodularity at right ureterovesical region with involvement of distal right ureter resulting in moderate hydronephrosis Mild uptake within the subcentimeter left para-aortic lymph node is indeterminate., Patient is being followed by Dr. Lloyd, case was discussed with Dr. Lewis at [facility], he is recommended to discontinue Jevtana and start on apalutamide along with Zoladex and also low-dose dexamethasone and may consider consultation with radiation oncology regarding involved field radiation therapy. He went to [facility] for follow-up on 06/29/2019. He underwent PET/CT choline which showed likely tumor at the left of urethral vesicle junction has SUV of 4.5 compared to 3.4 on 12/25/2018. Nonspecific activity to the right of urethrovesical junction has SUV of 1.8 compared to 2.1 previously. Likely tumor involving left sided urinary bladder including the left ureterovesical junction has SUV of 6.2 compared to 6.6 previously. Likely metastatic activity in the proximal right external iliac lymph node has SUV of 2.6 versus 2.2 previously. Nonspecific activity along the right common iliac vessels and adjacent to lumbar degenerative changes as current SUV of 2.9 versus 2.1 previously and his PSA was 2.5. based on these findings, Dr. Lewis recommended continue with Zoladex but discontinue Zytiga and taper off prednisone. Initiate xtandi and underwent follow-up CT PET on December 27, 2019 at [facility] which showed disease progression when compared with scan done on June 28, 2019 and showed malignant appearing choline activity along the urinary bladder oneal has increased,, prominent disease in the left UVJ region has current SUV of 9.7 versus 6.2 on June 2019. Metastatic appearing nodularity in the fat to the right of the urinary bladder anteriorly has increased. Approximate 1.7 x 1.3 cm right external iliac node measuring 0.7 x 0.5 cm on June 28, 2019 and now with SUV of 6 compared to 2.6 at that time. A likely metastatic right common iliac node now measures 1.8 x 1.2 cm versus 1 x 0.7 cm on June 28, 2019. Multiple nodes in the thorax shows interval increase activity compared to June 28, 2019, these are nonspecific could be due to granulomatous inflammation. As far as his left pelvic pain is concern, which is under control and left nephrostomy tube was suggested rather than continuing with ureteral stent exchanges every couple of months. Mr Kauffman was seen by Dr. Lewis and MSI/BRCA 1 and 2 were checked and both came back negative- so no role of immunotherapy with pembrolizumab and olaparib. Clinical trial was also considered but considering patient's age and overall condition, further chemotherapy with cabazitaxel was recommended and patient agreed. And he was advised to continue Xtandi until cabazitaxel is planned. Mr Kauffman began his first cycle of cabazitaxel on February 21, 2020. His Zoladex was last given on 01/28/2020. Mr Kauffman underwent choline CT PET scan after 4 doses of Jevtana at [facility] which was done on May 09, 2020 showed stable to mildly improved choline avid bladder and pelvic node metastatic disease. Enlarging subcentimeter left periaortic retroperitoneal nodes with low-grade colon activity, technically indeterminate for new nodes metastatic disease., Could be reactive. Patient was evaluated by on May 13, 2020 and his recommendations were to continue with Jevtana for 4 more cycles and then repeat: CT PET scan and also continue with 3 monthly Zoladex. And continue left ureteral stent exchanges locally. He continues with treatment. Patient completed total 8 cycles of Jevtana on July 23, 2020 And Followup Choline PET/CT scan on September 05, 2020 reported bladdrmetastatic disease with predominant involvement of left ureterovesical region and local invasion into pelvis including involvement of left pubic bone. The nodularity at right ureterovesical region with involvement of distal right ureter resulting in moderate right hydronephrosis, which may be new; Mild uptake within the subcentimeter left para-aortic node is indeterminate; Uptake within mediastinal and bilateral hilar nodes is nonspecific Followup choline CT PET scan done on April 22, 2021 shows overall progression of metabolic prostate cancer within the urinary bladder and progressive invasion of left pubic bone. Extensive new and progressive presumed lymph node metastasis within the retroperitoneal right iliac chain persistent right moderate hydronephrosis Mr Kauffman had telemedicine follow-up with Dr. Lewis on May 11, 2021. Per Dr Lewis's his note, he recommended Jevtana plus/minus carboplatin or olaparib or Rubraca based on prior evidence of mutation. It was recommended to have follow-up evaluation or scans after 3 cycles of Jevtana or 3 months of olaparib. Mr Kauffman began singel agent Jevtana on 05/28/2021. He continues to receive Zoladex???his last dose was May 20, 2021. Also bone support with denosumab was initiated on 05/28/2021. Plan: Discussed with patient regarding his labs white blood count 14.2 hemoglobin 13.6 hematocrit 41.7 platelets 201,000 CMP within normal limits except glucose 130 and PSA 25.82 compared to 32.76 on June 17, 2021 Clinically, patient is doing reasonably well with no new signs symptom suggestive of disease progression, tolerating Jevtana well, will proceed with cycle #3/3 prior to follow-up scans to assess disease response. Patient will receive his next dose of Jevtana along with monthly Xgeva today and then return to clinic in 3 weeks with CBC CMP and PSA In the meantime, we will schedule him for follow-up choline CT PET scan, will also discuss with Dr. Lewis at [facility] regarding whether he prefer PSMA scan or continue with choline CT PET scan for comparison with previous scans. Signed By: Tom Alcazar M.D. <<Signature on File>>
[2021-07-08] MEDS: famotidine 20 mg/2 mL INJ IVP (11:45)
[2021-07-08] MEDS: sodium chloride 0.9% 250 ML 75 ML IV (11:45)
[2021-07-08] MEDS: diphenhydrAMINE 50 mg/mL SDV 1mL 25 MG IV (11:46)
[2021-07-08] MEDS: palonosetron 0.25 mg/5 mL SDV IV (11:50)
[2021-07-08] MEDS: denosumab 120 mg SDV SUBCUT (13:29)
[2021-07-08] MEDS: pegfilgrastim 6 mg/0.6 mL Kit (onpro) SUBCUT (13:30)
== END 2021-07-08 09:01 | disposition home or self-care (01) ==
LOC: ONCMED 09:06
PROVIDERS: PCP Nurse Practitioner; Visit Provider Internal Medicine Hematology & Oncology
DX: Z51.12 Encounter for antineoplastic immunotherapy (principal); Z51.11 Encounter for antineoplastic chemotherapy; C61 Malignant neoplasm of prostate; R97.20 Elevated prostate specific antigen [PSA]; R59.0 Localized enlarged lymph nodes; N02.9 Recurrent and persistent hematuria with unspecified morphologic changes; R30.0 Dysuria; Z79.818 Long term (current) use of other agents affecting estrogen receptors and estrogen levels; Z79.899 Other long term (current) drug therapy
CPT/HCPCS: 80053; 84153; 85025; 96367; 96372; 96375; 96377; 96413; 99215; J0897; J1100; J1200; J2469; J2505; J3490; J7050; J9043

== ENCOUNTER 2021-10-16 09:23 | Outpatient (CLI) | payer MEDICARE, OTHER, SELFPAY ==
[2021-10-16] MEDS: lidocaine 1% INJ 20 mL INJECTION (10:10)
[2021-10-16] MEDS: goserelin acetate 10.8 mg Implant SUBCUT (10:30)
== END 2021-10-16 09:24 | disposition home or self-care (01) ==
PROVIDERS: PCP Nurse Practitioner; Visit Provider Internal Medicine Hematology & Oncology
DX: C61 Malignant neoplasm of prostate (principal); Z79.818 Long term (current) use of other agents affecting estrogen receptors and estrogen levels
CPT/HCPCS: 96402; J9202

== ENCOUNTER 2021-10-29 09:27 | Outpatient (CLI) | payer MEDICARE, OTHER, SELFPAY ==
[2021-10-29 10:06] LABS: Basophils # 0.1 10^3/uL (0.0-0.1); Basophils % 0.6 %; Eosinophils # 0.6 10^3/uL (0.0-0.8); Eosinophils % 6.5 %; Hematocrit 44.2 % (42.0-52.0); Hemoglobin 13.7 g/dL (11.7-16.6); Lymphocytes # 2.2 10^3/uL (0.8-4.8); Lymphocytes % 25.8 %; Mean Corpuscular Hemoglobin 26.8 pg (28.0-34.0); Mean Corpuscular Volume 86.5 fl (80-94); Monocytes # 0.8 10^3/uL (0.2-0.9); Monocytes % 8.8 %; Neutrophils # 4.92 10^3/uL (1.8-7.7); Neutrophils % 58.1 %; Nucleated Red Blood Cells % 0 %; Platelet Count 236 10^3/cmm (130-400); Red Blood Count 5.11 10^6/uL (4.1-5.3); Red Cell Distribution Width 15.9 % (12.1-15.1); White Blood Count 8.5 10^3/uL (4.0-10.0)
[2021-10-29 10:36] LABS: Alanine Aminotransferase 21 U/L (0-41); Albumin Level 4.4 g/dL (3.5-5.2); Alkaline Phosphatase 45 IU/L (40-130); Anion Gap 17.9 (5-19); Aspartate Amino Transferase 16 U/L (0-40); Blood Urea Nitrogen 18 mg/dL (8-23); Calcium 9.4 mg/dL (8.5-10.5); Carbon Dioxide 22 mmol/L (22-29); Chloride 102 mmol/L (98-107); Glucose 150 mg/dL (65-115); Osmolality Calculated 291 mOsm/kg (285-295); Potassium 3.9 mmol/L (3.5-5.1); Sodium 138 mmol/L (136-145); Total Bilirubin 0.3 mg/dL (0.15-1.2); Total Protein 7.4 g/dL (6.6-8.7)
== END 2021-10-29 09:28 | disposition home or self-care (01) ==
PROVIDERS: PCP Nurse Practitioner; Visit Provider Internal Medicine Hematology & Oncology
DX: C61 Malignant neoplasm of prostate (principal)
CPT/HCPCS: 36591; 80053; 84153; 85025

== ENCOUNTER 2021-10-30 07:48 | Outpatient (CLI) | payer MEDICARE, OTHER, SELFPAY ==
--- NOTE | 2021-10-30 13:29 | ONC FU_ITS ---
Dr. Alcazar follow up note Patient: Alex Kauffman Unit #: [id number]: 1940 Dicatated By: Tom Alcazar M.D.Date of Visit:Oct 30, 2021 Onc Med Follow-up/Prog Note History of Present Illness: Mr. Kauffman is a 81-year-old gentleman with long-standing history of prostate cancer. Initially, he was diagnosed with prostate cancer in May 2000. At that time, his PSA was 9 and a biopsy showed 2+ 2/3+4/3+3 with the largest volume equal 3+4. Underwent radical retropubic prostatectomy in June 2000. He was followed with PSA postoperatively and during follow-up it was noted his PSA was increasing but slowly. Finally in 2010 it was felt he needed further treatment. He was treated with radiation therapy which he completed in March 2011. It showed good response with PSA down to 0.05. During follow-up in November 2012, his PSA gone up to 0.21; in May 2013 up to 0.35 and in November 2013 it was 0.93. In February 2015, he underwent cystoscopic examination found to have local recurrence. It was resected and confirmed to be poorly differentiated prostate cancer. At that time he was started on combined androgen blockade postop. His treatment was complicated by recurrent hematuria and burning micturition. Follow-up lab showed a gradual increase in his PSA level and from 07/06/2017 it was 2.5 earlier while on combined androgen blockade. On 12/21/2017, he underwent cystoscopy with transurethral resection of a bladder lesion, cystourethroscopy with placement of ureteral stent on left side and dilation of urethra. 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 Mr Kauffman has had persistent urine tract infection and recently finished course of Levaquin. Repeat urinalysis on 02/16/2018 showed persistent urine tract infection: leukoesterase positive and persistent RBCs and WBCs on microscopic evaluation. Mr Kauffman reported he did notice pus drops every time after he finish his urination. His case was discussed with Dr. Lloyd, urologist, and he was referred for possible cystoscopy to rule out postsurgical abscess or other source of infection- before we started chemotherapy. Mr Kauffman reported that he has seen Dr. Lloyd. Dr Lloyd replaced the urinary stent and did notice lots of urinary debris. Mr Kauffman was started on long-term antibiotics with Hiprex 1 g by mouth daily. He began his first dose of docetaxel on 03/14/2018. He was not given Neulasta as he did not have insurance approval at the time of chemotherapy. He did have significant neutropenia on day 8 with an ANC of 600. He did not have symptoms and gradually recovered. He did qualify for Neulasta administration with cycle 2 and Concluded his chemotherapy e.g. 6 doses on 06/27/2018 He went to [facility] on 09/07/2018 and as per patient and his , patient was started on Zytiga/prednisone for one year in addition to Zoladex every 3 months as scans done at [facility] showed excellent response to chemotherapy but persistent lung nodule and pelvic lesion and his PSA done there was around 1. We will obtain follow-up note from [facility] and review. On 09/21/2018 patient had left ureteral stent replacement. Mr Kauffman went to [facility] for follow-up on 12/25/2018 and had choline C 11 scan done, when compared with one from 09/07/2018, showed increased choline uptake is again seen in the prostatectomy bed on the left and involving the posterior bladder base is essentially unchanged from the previous scan. The small lymph nodes with choline uptake seen on the previous scan are unchanged. The pulmonary infiltrate have decreased. No new sites of abnormal choline uptake are noted. He was Tolerating ADT with Zoladex and Zytiga/prednisone well. He went to [facility] for follow-up on 06/29/2019. He underwent PET/CT choline which showed likely tumor at the left of urethral vesicle junction has SUV of 4.5 compared to 3.4 on 12/25/2018. Nonspecific activity to the right of urethrovesical junction has SUV of 1.8 compared to 2.1 previously. Likely tumor involving left sided urinary bladder including the left ureterovesical junction has SUV of 6.2 compared to 6.6 previously. Likely metastatic activity in the proximal right external iliac lymph node has SUV of 2.6 versus 2.2 previously. Nonspecific activity along the right common iliac vessels and adjacent to lumbar degenerative changes as current SUV of 2.9 versus 2.1 previously and his PSA was 2.5. based on these findings, Dr. Lewis recommended continue with Zoladex but discontinue Zytiga and taper off prednisone. Initiate xtandi and underwent follow-up CT PET on December 27, 2019 at [facility] which showed disease progression when compared with scan done on June 28, 2019 and showed malignant appearing choline activity along the urinary bladder oneal has increased,, prominent disease in the left UVJ region has current SUV of 9.7 versus 6.2 on June 2019. Metastatic appearing nodularity in the fat to the right of the urinary bladder anteriorly has increased. Approximate 1.7 x 1.3 cm right external iliac node measuring 0.7 x 0.5 cm on June 28, 2019 and now with SUV of 6 compared to 2.6 at that time. A likely metastatic right common iliac node now measures 1.8 x 1.2 cm versus 1 x 0.7 cm on June 28, 2019. Multiple nodes in the thorax shows interval increase activity compared to June 28, 2019, these are nonspecific could be due to granulomatous inflammation. As far as his left pelvic pain is concern, which is under control and left nephrostomy tube was suggested rather than continuing with ureteral stent exchanges every couple of months. Mr Kauffman was seen by Dr. Lewis and MSI/BRCA 1 and 2 were checked and both came back negative- so no role of immunotherapy with pembrolizumab and olaparib. Clinical trial was also considered but considering patient's age and overall condition, further chemotherapy with cabazitaxel was recommended and patient agreed. And he was advised to continue Xtandi until cabazitaxel is planned. Mr Kauffman began his first cycle of cabazitaxel on February 21, 2020. His Zoladex was last given on 01/28/2020. Mr Kauffman underwent choline CT PET scan after 4 doses of Jevtana at [facility] which was done on May 09, 2020 showed stable to mildly improved choline avid bladder and pelvic node metastatic disease. Enlarging subcentimeter left periaortic retroperitoneal nodes with low-grade colon activity, technically indeterminate for new nodes metastatic disease., Could be reactive. Patient was evaluated by on May 13, 2020 and his recommendations were to continue with Jevtana for 4 more cycles and then repeat: CT PET scan and also continue with 3 monthly Zoladex. And continue left ureteral stent exchanges locally. He continues with treatment.Patient completed total 8 cycles of Jevtana on July 23, 2020 And Followup Choline PET/CT scan on September 05, 2020 reported bladdrmetastatic disease with predominant involvement of left ureterovesical region and local invasion into pelvis including involvement of left pubic bone. The nodularity at right ureterovesical region with involvement of distal right ureter resulting in moderate right hydronephrosis, which may be new; Mild uptake within the subcentimeter left para-aortic node is indeterminate; Uptake within mediastinal and bilateral hilar nodes is nonspecific Mr Kauffman is being followed by Dr. 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 He is scheduled see Dr. Lloyd on November 08, 2019 for possible left ureteral stent change. His prostate cancer was discussed with Dr. Lewis at [facility] in [facility]. Dr Lewis has recommended apalutamide or darolutamide while continuing with Zoladex and also consider low-dose dexamethasone. , Xtandi was discontinued and follow-up: Followup choline CT PET scan done on April 22, 2021 shows overall progression of metabolic prostate cancer within the urinary bladder and progressive invasion of left pubic bone. Extensive new and progressive presumed lymph node metastasis within the retroperitoneal right iliac chain persistent right moderate hydronephrosis Mr Kauffman had telemedicine follow-up with Dr. Lewis on May 11, 2021. Per Dr Lewis's his note, he recommended Jevtana plus/minus carboplatin or olaparib or Rubraca based on prior evidence of mutation. It was recommended to have follow-up evaluation or scans after 3 cycles of Jevtana or 3 months of olaparib., Patient was started on Jevtana q. 21 days on May 28, 2021 and plan to give him 3 cycles followed by choline CT PET scan, Patient underwent PSMA scan Showed progressive intensely PSMA avid rosie spread around bladder, low pelvis, retroperitoneal lymph nodes. Mild PSMA avid right iliac lymph node/nodule Came for follow-up, denies any specific complaints, no hematuria, no dysuria, patient has bilateral nephrostomy tubes, as per patient they were changed on October 27, 2021 by urologist in [place], [place]. Patient had follow-up PSMA scan done recently and he reviewed those findings with Dr. Lewis and his team at [facility] on October 28, 2021, as per they were suggested to consider adding carboplatin to Jevtana and also do next generation sequencing testing. Medications: AZO Yeast Plus 1 Tablet Oral daily PRN, Hiprex 1 Tablet (of 1 G) Oral b.i.d., MetFORMIN HCl 1 Tablet (of 500 mg) Oral daily, oxyCODONE-Acetaminophen 1 Tablet (of 5-325 mg) Oral q 4 to 6 hours PRN, Vitamin C 1 Tablet (of 1 G) Oral daily Allergies: Cipro, Penicillins, and Sulfa Antibiotics. Review of Systems: Review of Systems is not available for this patient. Vital Signs: Performed on Oct 30, 2021 08:03 Height - 67.00 in Weight - 225.0 lbs (HIGH) BSA - 2.13 sq.m BMI - 35.24 (HIGH) Temperature - 97.6 F (LOW) Pulse - 80 /min Respiration - 18 /min BP - 131/70 mm(hg) O2 Sat - 96 % Pain - 0 Fatigue - 5 Performance Status: 0 - Fully active, able to carry on all predisease activities without restrictions. (ECOG) Physical Examination: ENMT - No mouth sores, no thrush, no jaundice, Respiratory - Lungs are clear to auscultation, Cardiovascular - Regular rate and rhythm of heart, Abdomen - Soft, bowel sounds present, Bilateral nephrostomy tube in place, Extremities - No visible edema. Lab/Imaging: Test performed on Oct 30, 2021 11:26 Creatinine 0.8 mg/dL Cr Clearance (Est) 106.31 mL/min Test performed on Jun 04, 2021 08:31 Sodium 142 mmol/L Potassium 3.4 mmol/L Chloride 105 mmol/L CO2 23 mmol/L Anion Gap 17.4 BUN 19 mg/dL Glucose 151 mg/dL Osmolality - Calculated 299 mOsm/kg Calcium 7.9 mg/dL Protein, Total 6.7 g/dL Albumin 3.7 g/dL Globulin 3.0 g/dL Bilirubin, Total 0.2 mg/dL ALT (SGPT) 7 U/L AST (SGOT) 10 U/L Alkaline Phosphatase 234 IU/L WBC 9.1 10 3/uL Manual Segs % 53 % Manual Bands % 12.0 % RBC 4.37 10 6/uL HGB 12.3 g/dL Manual Lymphs % 23 % Atypical Lymphs % 0.0 % HCT 39.8 % MCV 91.1 fl Total Cells Counted 100 Manual Monos % 9.0 % MCH 28.1 pg Manual Eos % 1 % MCHC 30.9 g/dL Manual Basos % 0.0 % RDW 15.9 % Metamyelocytes % 1.0 % Platelet Count 139 10 3/cmm MPV 10.7 fL Myelocytes % 1.0 % CBC Slide Review Slide Review Perform Platelet Estimate Decreased Manual Segs Abs 4.8 10/cmm Manual Bands Abs 1.1 10 3/cmm Manual Neutrophils Abs 5.9 10 3/cmm Manual Lymphocytes Abs 2.1 10 3/cmm Manual Monocytes Abs 0.8 10 3/cmm Manual Eosinophils Abs 0.0 10 3/cmm Manual Basophils Abs 0.0 10 3/cmm PSA 31.980 ng/mL Impression: Recurrent prostate cancer status post cystoscopy and excision in February 2015 followed by combined androgen blockade with Zoladex and Casodex. with gradual increasing PSA while on combined androgen blockade Initially he was diagnosed prostate cancer in 1999- at that time he underwent retropubic radical prostatectomy. Status post radiation therapy in 2010 for increasing PSA and lymphadenopathy. Hematuria/dysuria since February 2015. CT scan of abdomen pelvis done on 03/02/2018 showed soft tissue mass measuring 2.2 cm x 3.2 x 2.9 in the expected location of the prostate inseparable from the urinary bladder floor urinary bladder wall is diffusely thickened and there is a soft tissue attenuation between the soft tissue mass in the anterior infra levator rectal wall, rectal lesion not excluded Seen by Dr. Edwards on 10/24/2017 and his impression was changes in the rectum are probably due to prostate invasion rather than primary rectal lesion. 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 Mr Kauffman was seen by Dr Lloyd for persistent UTI symptoms post op and was placed on supervisor fertilizer antibiotics. His symptoms resolved and he began recommended chemotherapy with docetaxel on 03/14/2018. Mr. Kauffman has tolerated the chemotherapy relatively well. He did have chemotherapy-induced neutropenia on day 8 of cycle 1. His initial ANC at time of treatment on 03/14/2018 was 13,300 on day 8 his ANC was 600. CT PET scan done on 05/06/2018 showed no evidence for recurrent or residual malignancy., Tiny scattered pelvic nodes are radiographically benign and FDG negative, no findings to indicate osseous metastatic disease and left-sided hydronephrosis is present and a ureteral catheter is in place. PSA checked on 05/15/2018 showed 1.81 compared to 6.49 on 03/14/2018 when chemotherapy with Taxotere was started And concluded his chemotherapy with Taxotere e.g. 6 doses on 06/27/2018 Status post left ureteral stent placement on 05/22/2018 Again replaced on 09/21/2018 Went to [facility] on 09/07/2018,Choline C 11 scan done on 09/07/2018 showed large choline avid recurrence in the prostatectomy bed involving the posterior bladder base has improved since prior exam, however suspicious new small focus of choline avid disease along the right posterior bladder wall. New choline avid node metastatic disease including a right supraclavicular node. And increasing pulmonary infiltrate and/or atelectasis in the posterior lower lobes with reactive choline activity. so he was started on Zytiga/prednisone for one year along with an 3 monthly Zoladex. Mr Kauffman returned to the [facility] on 12/25/2018 and had choline C 11 scan done on same date showed when compared with choline scan done on 09/07/2018, increased choline uptake is seen again in the prostatectomy bed on the left and involving the posterior bladder base is essentially unchanged from the previous scan. The small lymph nodes with choline uptake seen on the previous scans are unchanged the pulmonary infiltrates have decreased. No new sites of abnormal choline uptake are noted. Clinically, patient was doing reasonably, but recently had evidence of disease progression confirmed with CT PET choline and progressive PSA. Mr Kauffman went to [facility] for follow-up and now palliative chemotherapy with cabazitaxel is recommended. Mr Kauffman had disease progression on Zytiga, which he was tolerating well but presented with progressive disease and he was also on 3 monthly Zoladex. At that point, Mr Kauffman has discontinued Xtandi and role of cabazitaxel was discussed. The treatment plan was cabazitaxel 20 mg/m??? every 3 weeks along with Neulasta to prevent chemotherapy-induced neutropenia as patient is a high risk. The initial plan was for him to receive 4 cycles of chemotherapy as recommended by [facility] and then he will go to clinic for follow-up evaluation including scans. Mr Kauffman was advised to pursue treatment with cabazitaxel with Neulasta support. Mr. Kauffman underwent right Port-A-Cath placement in the SVC/RA junction per Dr. Caballero at [facility] on February 14, 2020. He began his first cycle on 02/21/2020. He continues with every 3-month Zoladex. His last injection was given on April 29, 2020. He is currently off of all prednisone.And completed 8 cycles of Jevtana on July 23, 2020 And follow-up CT PET scan done on September 05, 2020 showed bladder metastatic disease with predominant involvement of left ureterovesical region and local invasion into pelvis including involvement of left pubic bone and there is nodularity at right ureterovesical region with involvement of distal right ureter resulting in moderate hydronephrosis Mild uptake within the subcentimeter left para-aortic lymph node is indeterminate., Patient is being followed by Dr. Lloyd, case was discussed with Dr. Lewis at [facility], he is recommended to discontinue Jevtana and start on apalutamide along with Zoladex and also low-dose dexamethasone and may consider consultation with radiation oncology regarding involved field radiation therapy. He went to [facility] for follow-up on 06/29/2019. He underwent PET/CT choline which showed likely tumor at the left of urethral vesicle junction has SUV of 4.5 compared to 3.4 on 12/25/2018. Nonspecific activity to the right of urethrovesical junction has SUV of 1.8 compared to 2.1 previously. Likely tumor involving left sided urinary bladder including the left ureterovesical junction has SUV of 6.2 compared to 6.6 previously. Likely metastatic activity in the proximal right external iliac lymph node has SUV of 2.6 versus 2.2 previously. Nonspecific activity along the right common iliac vessels and adjacent to lumbar degenerative changes as current SUV of 2.9 versus 2.1 previously and his PSA was 2.5. based on these findings, Dr. Lewis recommended continue with Zoladex but discontinue Zytiga and taper off prednisone. Initiate xtandi and underwent follow-up CT PET on December 27, 2019 at [facility] which showed disease progression when compared with scan done on June 28, 2019 and showed malignant appearing choline activity along the urinary bladder oneal has increased,, prominent disease in the left UVJ region has current SUV of 9.7 versus 6.2 on June 2019. Metastatic appearing nodularity in the fat to the right of the urinary bladder anteriorly has increased. Approximate 1.7 x 1.3 cm right external iliac node measuring 0.7 x 0.5 cm on June 28, 2019 and now with SUV of 6 compared to 2.6 at that time. A likely metastatic right common iliac node now measures 1.8 x 1.2 cm versus 1 x 0.7 cm on June 28, 2019. Multiple nodes in the thorax shows interval increase activity compared to June 28, 2019, these are nonspecific could be due to granulomatous inflammation. As far as his left pelvic pain is concern, which is under control and left nephrostomy tube was suggested rather than continuing with ureteral stent exchanges every couple of months. Mr Kauffman was seen by Dr. Lewis and MSI/BRCA 1 and 2 were checked and both came back negative- so no role of immunotherapy with pembrolizumab and olaparib. Clinical trial was also considered but considering patient's age and overall condition, further chemotherapy with cabazitaxel was recommended and patient agreed. And he was advised to continue Xtandi until cabazitaxel is planned. Mr Kauffman began his first cycle of cabazitaxel on February 21, 2020. His Zoladex was last given on 01/28/2020. Mr Kauffman underwent choline CT PET scan after 4 doses of Jevtana at [facility] which was done on May 09, 2020 showed stable to mildly improved choline avid bladder and pelvic node metastatic disease. Enlarging subcentimeter left periaortic retroperitoneal nodes with low-grade colon activity, technically indeterminate for new nodes metastatic disease., Could be reactive. Patient was evaluated by on May 13, 2020 and his recommendations were to continue with Jevtana for 4 more cycles and then repeat: CT PET scan and also continue with 3 monthly Zoladex. And continue left ureteral stent exchanges locally. He continues with treatment. Patient completed total 8 cycles of Jevtana on July 23, 2020 And Followup Choline PET/CT scan on September 05, 2020 reported bladdrmetastatic disease with predominant involvement of left ureterovesical region and local invasion into pelvis including involvement of left pubic bone. The nodularity at right ureterovesical region with involvement of distal right ureter resulting in moderate right hydronephrosis, which may be new; Mild uptake within the subcentimeter left para-aortic node is indeterminate; Uptake within mediastinal and bilateral hilar nodes is nonspecific Followup choline CT PET scan done on April 22, 2021 shows overall progression of metabolic prostate cancer within the urinary bladder and progressive invasion of left pubic bone. Extensive new and progressive presumed lymph node metastasis within the retroperitoneal right iliac chain persistent right moderate hydronephrosis Mr Kauffman had telemedicine follow-up with Dr. Lewis on May 11, 2021. Per Dr Lewis's his note, he recommended Jevtana plus/minus carboplatin or olaparib or Rubraca based on prior evidence of mutation. It was recommended to have follow-up evaluation or scans after 3 cycles of Jevtana or 3 months of olaparib. Mr Kauffman began singel agent Jevtana on 05/28/2021. He continues to receive Zoladex???his last dose was May 20, 2021. Also bone support with denosumab was initiated on 05/28/2021. Plan: Discussed with patient regarding his labs white blood count 8.5 hemoglobin 13.7 hematocrit 44.2 platelets 236,000 CMP within normal limits except glucose 150 and PSA 33.07 compared to 25.82 on July 08, 2021 Clinically, patient is doing reasonably well with no new signs symptom suggestive of disease progression but his recently done PSMA scan showed persistent bladder lesion and pelvic lymph nodes and his PSA is stable as patient received last dose of chemotherapy with Jevtana alone on July 08, 2021 while continue with 3 monthly Zoladex which was given on October 16, 2021, as patient has persistent disease and this time he underwent PSMA scan rather choline CT PET scan for comparison and as per [facility] recommendations, we will consider adding carboplatin AUC 4 every 3 weeks to his Jevtana, Along with prednisone 5 mg p.o. twice daily and all the side effect possible benefits associated with carboplatin including but not limited to bone marrow suppression, especially thrombocytopenia, nausea vomiting, hair loss, allergic reactions were mentioned further teaching will be done by chemotherapy nurse and will obtain approval from his insurance prior to the treatment and then he will return to clinic 1 week after carboplatin/Jevtana infusion, with CBC CMP and planning to give him 3-4 cycles and then repeat PSMA scan for comparison along with PSA. In the meantime we will continue his 3 monthly Zoladex. Signed By: Tom Alcazar M.D. <<Signature on File>>
== END 2021-10-30 07:49 | disposition home or self-care (01) ==
PROVIDERS: PCP Nurse Practitioner; Visit Provider Internal Medicine Hematology & Oncology
DX: C61 Malignant neoplasm of prostate (principal); C79.11 Secondary malignant neoplasm of bladder; C77.5 Secondary and unspecified malignant neoplasm of intrapelvic lymph nodes; Z79.899 Other long term (current) drug therapy; Z79.818 Long term (current) use of other agents affecting estrogen receptors and estrogen levels
CPT/HCPCS: 99214

== ENCOUNTER 2021-11-05 07:54 | Outpatient (CLI) | payer MEDICARE, OTHER, SELFPAY ==
[2021-11-05 08:22] LABS: Basophils # 0.1 10^3/uL (0.0-0.1); Basophils % 0.7 %; Eosinophils # 0.6 10^3/uL (0.0-0.8); Eosinophils % 6.3 %; Hematocrit 44.4 % (42.0-52.0); Hemoglobin 13.9 g/dL (11.7-16.6); Lymphocytes # 2.2 10^3/uL (0.8-4.8); Lymphocytes % 23.9 %; Mean Corpuscular HGB Conc 31.3 g/dL (30.0-36.0); Mean Corpuscular Hemoglobin 26.7 pg (28.0-34.0); Mean Corpuscular Volume 85.4 fl (80-94); Mean Platelet Volume 9.4 fL (7.4-10.4); Monocytes # 0.8 10^3/uL (0.2-0.9); Monocytes % 8.1 %; Neutrophils # 5.61 10^3/uL (1.8-7.7); Neutrophils % 60.8 %; Nucleated Red Blood Cells % 0 %; Platelet Count 225 10^3/cmm (130-400); Red Cell Distribution Width 16.3 % (12.1-15.1); White Blood Count 9.2 10^3/uL (4.0-10.0)
[2021-11-05 08:42] LABS: Alanine Aminotransferase 21 U/L (0-41); Albumin Level 4.4 g/dL (3.5-5.2); Alkaline Phosphatase 45 IU/L (40-130); Anion Gap 18.1 (5-19); Aspartate Amino Transferase 17 U/L (0-40); Blood Urea Nitrogen 23 mg/dL (8-23); Calcium 9.6 mg/dL (8.5-10.5); Carbon Dioxide 22 mmol/L (22-29); Chloride 106 mmol/L (98-107); Glucose 139 mg/dL (65-115); Osmolality Calculated 300 mOsm/kg (285-295); Potassium 4.1 mmol/L (3.5-5.1); Sodium 142 mmol/L (136-145); Total Bilirubin 0.3 mg/dL (0.15-1.2); Total Protein 7.4 g/dL (6.6-8.7)
[2021-11-05] MEDS: sodium chloride 0.9% 250 ML 75 ML IV (09:30)
[2021-11-05] MEDS: palonosetron 0.25 mg/5 mL SDV IV (09:50)
[2021-11-05] MEDS: diphenhydrAMINE 50 mg/mL SDV 1mL 25 MG IV (09:53)
[2021-11-05] MEDS: famotidine 20 mg/2 mL INJ IVP (09:55)
[2021-11-05] MEDS: fosaprepitant 150 MG in sodium chloride 0.9% 150 ML 300 MG IV (10:20)
[2021-11-05] MEDS: pegfilgrastim 6 mg/0.6 mL Kit (onpro) SUBCUT (13:30)
--- NOTE | 2021-11-05 19:41 | ONC FU_ITS ---
Leila Pryor Progress Note Patient: Alex Kauffman Unit #: [id number]: 1940 Dicatated By: Leila Pryor N.P.Date of Visit:Nov 05, 2021 Onc MED Follow-up/Prog Note Chief Complaint: Prostate cancer History of Present Illness: Mr. Kauffman is a 81-year-old gentleman with long-standing history of prostate cancer. Initially, he was diagnosed with prostate cancer in May 2000. At that time, his PSA was 9 and a biopsy showed 2+ 2/3+4/3+3 with the largest volume equal 3+4. Underwent radical retropubic prostatectomy in June 2000. He was followed with PSA postoperatively and during follow-up it was noted his PSA was increasing but slowly. Finally in 2010 it was felt he needed further treatment. He was treated with radiation therapy which he completed in March 2011. It showed good response with PSA down to 0.05. During follow-up in November 2012, his PSA gone up to 0.21; in May 2013 up to 0.35 and in November 2013 it was 0.93. In February 2015, he underwent cystoscopic examination found to have local recurrence. It was resected and confirmed to be poorly differentiated prostate cancer. At that time he was started on combined androgen blockade postop. His treatment was complicated by recurrent hematuria and burning micturition. Follow-up lab showed a gradual increase in his PSA level and from 07/06/2017 it was 2.5 earlier while on combined androgen blockade. On 12/21/2017, he underwent cystoscopy with transurethral resection of a bladder lesion, cystourethroscopy with placement of ureteral stent on left side and dilation of urethra. 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 Mr Kauffman has had persistent urine tract infection and recently finished course of Levaquin. Repeat urinalysis on 02/16/2018 showed persistent urine tract infection: leukoesterase positive and persistent RBCs and WBCs on microscopic evaluation. Mr Kauffman reported he did notice pus drops every time after he finish his urination. His case was discussed with Dr. Lloyd, urologist, and he was referred for possible cystoscopy to rule out postsurgical abscess or other source of infection- before we started chemotherapy. Mr Kauffman reported that he has seen Dr. Lloyd. Dr Lloyd replaced the urinary stent and did notice lots of urinary debris. Mr Kauffman was started on long-term antibiotics with Hiprex 1 g by mouth daily. He began his first dose of docetaxel on 03/14/2018. He was not given Neulasta as he did not have insurance approval at the time of chemotherapy. He did have significant neutropenia on day 8 with an ANC of 600. He did not have symptoms and gradually recovered. He did qualify for Neulasta administration with cycle 2 and Concluded his chemotherapy e.g. 6 doses on 06/27/2018 He went to [facility] on 09/07/2018 and as per patient and his , patient was started on Zytiga/prednisone for one year in addition to Zoladex every 3 months as scans done at [facility] showed excellent response to chemotherapy but persistent lung nodule and pelvic lesion and his PSA done there was around 1. We will obtain follow-up note from [facility] and review. On 09/21/2018 patient had left ureteral stent replacement. Mr Kauffman went to [facility] for follow-up on 12/25/2018 and had choline C 11 scan done, when compared with one from 09/07/2018, showed increased choline uptake is again seen in the prostatectomy bed on the left and involving the posterior bladder base is essentially unchanged from the previous scan. The small lymph nodes with choline uptake seen on the previous scan are unchanged. The pulmonary infiltrate have decreased. No new sites of abnormal choline uptake are noted. He was Tolerating ADT with Zoladex and Zytiga/prednisone well. He went to [facility] for follow-up on 06/29/2019. He underwent PET/CT choline which showed likely tumor at the left of urethral vesicle junction has SUV of 4.5 compared to 3.4 on 12/25/2018. Nonspecific activity to the right of urethrovesical junction has SUV of 1.8 compared to 2.1 previously. Likely tumor involving left sided urinary bladder including the left ureterovesical junction has SUV of 6.2 compared to 6.6 previously. Likely metastatic activity in the proximal right external iliac lymph node has SUV of 2.6 versus 2.2 previously. Nonspecific activity along the right common iliac vessels and adjacent to lumbar degenerative changes as current SUV of 2.9 versus 2.1 previously and his PSA was 2.5. based on these findings, Dr. Lewis recommended continue with Zoladex but discontinue Zytiga and taper off prednisone. Initiate xtandi and underwent follow-up CT PET on December 27, 2019 at [facility] which showed disease progression when compared with scan done on June 28, 2019 and showed malignant appearing choline activity along the urinary bladder oneal has increased,, prominent disease in the left UVJ region has current SUV of 9.7 versus 6.2 on June 2019. Metastatic appearing nodularity in the fat to the right of the urinary bladder anteriorly has increased. Approximate 1.7 x 1.3 cm right external iliac node measuring 0.7 x 0.5 cm on June 28, 2019 and now with SUV of 6 compared to 2.6 at that time. A likely metastatic right common iliac node now measures 1.8 x 1.2 cm versus 1 x 0.7 cm on June 28, 2019. Multiple nodes in the thorax shows interval increase activity compared to June 28, 2019, these are nonspecific could be due to granulomatous inflammation. As far as his left pelvic pain is concern, which is under control and left nephrostomy tube was suggested rather than continuing with ureteral stent exchanges every couple of months. Mr Kauffman was seen by Dr. Lewis and MSI/BRCA 1 and 2 were checked and both came back negative- so no role of immunotherapy with pembrolizumab and olaparib. Clinical trial was also considered but considering patient's age and overall condition, further chemotherapy with cabazitaxel was recommended and patient agreed. And he was advised to continue Xtandi until cabazitaxel is planned. Mr Kauffman began his first cycle of cabazitaxel on February 21, 2020. His Zoladex was last given on 01/28/2020. Mr Kauffman underwent choline CT PET scan after 4 doses of Jevtana at [facility] which was done on May 09, 2020 showed stable to mildly improved choline avid bladder and pelvic node metastatic disease. Enlarging subcentimeter left periaortic retroperitoneal nodes with low-grade colon activity, technically indeterminate for new nodes metastatic disease., Could be reactive. Patient was evaluated by on May 13, 2020 and his recommendations were to continue with Jevtana for 4 more cycles and then repeat: CT PET scan and also continue with 3 monthly Zoladex. And continue left ureteral stent exchanges locally. He continues with treatment.Patient completed total 8 cycles of Jevtana on July 23, 2020 And Followup Choline PET/CT scan on September 05, 2020 reported bladdrmetastatic disease with predominant involvement of left ureterovesical region and local invasion into pelvis including involvement of left pubic bone. The nodularity at right ureterovesical region with involvement of distal right ureter resulting in moderate right hydronephrosis, which may be new; Mild uptake within the subcentimeter left para-aortic node is indeterminate; Uptake within mediastinal and bilateral hilar nodes is nonspecific Mr Kauffman is being followed by Dr. 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 He is scheduled see Dr. Lloyd on November 08, 2019 for possible left ureteral stent change. His prostate cancer was discussed with Dr. Lewis at [facility] in [facility]. Dr Lewis has recommended apalutamide or darolutamide while continuing with Zoladex and also consider low-dose dexamethasone. , Xtandi was discontinued and follow-up: Followup choline CT PET scan done on April 22, 2021 shows overall progression of metabolic prostate cancer within the urinary bladder and progressive invasion of left pubic bone. Extensive new and progressive presumed lymph node metastasis within the retroperitoneal right iliac chain persistent right moderate hydronephrosis Mr Kauffman had telemedicine follow-up with Dr. Lewis on May 11, 2021. Per Dr Lewis's his note, he recommended Jevtana plus/minus carboplatin or olaparib or Rubraca based on prior evidence of mutation. It was recommended to have follow-up evaluation or scans after 3 cycles of Jevtana or 3 months of olaparib., Patient was started on Jevtana q. 21 days on May 28, 2021 and plan to give him 3 cycles followed by choline CT PET scan, Patient underwent PSMA scan Patient has bilateral nephrostomy tubes, as per patient they were changed on October 27, 2021 by urologist in [place], [place]. Patient had follow-up PSMA scan done recently and he reviewed those findings with Dr. Lewis and his team at [facility] on October 28, 2021, as per they were suggested to consider adding carboplatin to Jevtana and also do next generation sequencing testing. Patient presents today accompanied by his for education on carboplatin which will be added to the Jevtana that he is taking in the past. He states he has mild fatigue but is able to do activities around the house. He denies fever, chills, night sweats. His appetite has been good. No sinus drainage or mouth sores. No shortness of breath, cough, chest pain. No nausea or vomiting. He is not having any urinary symptoms. He has bilateral nephrostomy tubes that were changed by urologist in [facility] on 10/27/2021. He denies joint pain. No headaches or dizziness. He has minimal tingling in his fingers and toes. Review Of Symptoms: See above. Past Medical History: Type II diabetes Past Surgical History: Colonoscopy Radical retropubic prostatectomy Right knee surgery Left kidney stent replacement in 2018 Kidney stent replacement in 2017 Kidney stent replacement in 2018 Stent replacement is done every 2 monthes Allergies: Cipro, Penicillins, and Sulfa Antibiotics. Medications: Caroline-Milfay Tablet, effervescent Oral PRN AZO Yeast Plus 1 Tablet Oral daily PRN MetFORMIN HCl 1 Tablet (of 500 mg) Oral daily oxyCODONE-Acetaminophen 1 Tablet (of 5-325 mg) Oral q 4 to 6 hours PRN Vitamin C 1 Tablet (of 1 g) Oral daily PRN Family History: Mr. Kauffman's mother at age 75. Mr. Kauffman's father at age 87. Mr. Kauffman has 2 brothers: 2 . Mr. Kauffman's first brother's polio. Another brother's coronary artery disease. Social History: Mr. Kauffman is and he is retired. Mr. Kauffman no longer smokes. He has no history of drinking. He has indicated exposure to the following products: chewing tobacco. Mr. Kauffman reports the following support systems: lives with spouse, significant other, family, or friends. His diet consists of regular meals. formerly chewed tobacco, quit in 2000. Physical Examination: Performed on Nov 05, 2021 09:04: Height - 67.00 in, Weight - 223.6 lbs (LOW), BSA - 2.12 sq.m, BMI - 35.02 (HIGH), Temperature - 98.6 F, Pulse - 78 /min, Respiration - 18 /min, BP - 129/72 mm(hg), O2 Sat - 96 %, Pain - 0, and Fatigue - 4. Performance Status: 0 - Fully active, able to carry on all predisease activities without restrictions. (ECOG) Constitutional Alert, cooperative, oriented. Mood and affect appropriate. Appears close to chronological age. Well nourished. Well developed. Head Normocephalic; no scars. Respiratory Lungs are clear to auscultation without rhonchi or wheezing. Cardiovascular Regular rate and rhythm of heart without murmurs, gallops or rubs. Abdomen Non-tender, non-distended, no masses, ascites or hepatosplenomegaly. Good bowel sounds. No guarding or rebound tenderness. Extremities No edema Musculoskeletal No tenderness or swelling, normal range of motion without obvious weakness. Psychiatric Alert and oriented times three. Coherent speech. Verbalizes understanding of our discussions today. Laboratory: Test performed on Nov 05, 2021 08:56 Creatinine 1.0 mg/dL Cr Clearance (Est) 85.05 mL/min Test performed on Nov 05, 2021 08:10 Sodium 142 mmol/L Potassium 4.1 mmol/L Chloride 106 mmol/L CO2 22 mmol/L Anion Gap 18.1 BUN 23 mg/dL Glucose 139 mg/dL Osmolality - Calculated 300 mOsm/kg Calcium 9.6 mg/dL Protein, Total 7.4 g/dL Albumin 4.4 g/dL Globulin 3.0 g/dL Bilirubin, Total 0.3 mg/dL ALT (SGPT) 21 U/L AST (SGOT) 17 U/L Alkaline Phosphatase 45 IU/L WBC 9.2 10 3/uL RBC 5.20 10 6/uL HGB 13.9 g/dL HCT 44.4 % MCV 85.4 fl MCH 26.7 pg MCHC 31.3 g/dL RDW 16.3 % Platelet Count 225 10 3/cmm MPV 9.4 fL Neutrophils 5.61 10 3/uL Lymphocytes 2.2 10 3/uL Monocytes 0.8 10 3/uL Eosinophils 0.6 10 3/uL Basophils 0.1 10 3/uL Neutrophil % 60.8 % Lymphocyte % 23.9 % Monocyte % 8.1 % Eosinophil % 6.3 % Basophils % 0.7 % NRBC % 0 % Test performed on Jun 04, 2021 08:31 Manual Segs % 53 % Manual Bands % 12.0 % Manual Lymphs % 23 % Atypical Lymphs % 0.0 % Total Cells Counted 100 Manual Monos % 9.0 % Manual Eos % 1 % Manual Basos % 0.0 % Metamyelocytes % 1.0 % Myelocytes % 1.0 % CBC Slide Review Slide Review Perform Platelet Estimate Decreased Manual Segs Abs 4.8 10/cmm Manual Bands Abs 1.1 10 3/cmm Manual Neutrophils Abs 5.9 10 3/cmm Manual Lymphocytes Abs 2.1 10 3/cmm Manual Monocytes Abs 0.8 10 3/cmm Manual Eosinophils Abs 0.0 10 3/cmm Manual Basophils Abs 0.0 10 3/cmm PSA 31.980 ng/mL Impression: Recurrent prostate cancer status post cystoscopy and excision in February 2015 followed by combined androgen blockade with Zoladex and Casodex. with gradual increasing PSA while on combined androgen blockade Initially he was diagnosed prostate cancer in 1999- at that time he underwent retropubic radical prostatectomy. Status post radiation therapy in 2010 for increasing PSA and lymphadenopathy. Hematuria/dysuria since February 2015. CT scan of abdomen pelvis done on 03/02/2018 showed soft tissue mass measuring 2.2 cm x 3.2 x 2.9 in the expected location of the prostate inseparable from the urinary bladder floor urinary bladder wall is diffusely thickened and there is a soft tissue attenuation between the soft tissue mass in the anterior infra levator rectal wall, rectal lesion not excluded Seen by Dr. Edwards on 10/24/2017 and his impression was changes in the rectum are probably due to prostate invasion rather than primary rectal lesion. 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 Mr Kauffman was seen by Dr Lloyd for persistent UTI symptoms post op and was placed on prison antibiotics. His symptoms resolved and he began recommended chemotherapy with docetaxel on 03/14/2018. Mr. Kauffman has tolerated the chemotherapy relatively well. He did have chemotherapy-induced neutropenia on day 8 of cycle 1. His initial ANC at time of treatment on 03/14/2018 was 13,300 on day 8 his ANC was 600. CT PET scan done on 05/06/2018 showed no evidence for recurrent or residual malignancy., Tiny scattered pelvic nodes are radiographically benign and FDG negative, no findings to indicate osseous metastatic disease and left-sided hydronephrosis is present and a ureteral catheter is in place. PSA checked on 05/15/2018 showed 1.81 compared to 6.49 on 03/14/2018 when chemotherapy with Taxotere was started And concluded his chemotherapy with Taxotere e.g. 6 doses on 06/27/2018 Status post left ureteral stent placement on 05/22/2018 Again replaced on 09/21/2018 Went to [facility] on 09/07/2018,Choline C 11 scan done on 09/07/2018 showed large choline avid recurrence in the prostatectomy bed involving the posterior bladder base has improved since prior exam, however suspicious new small focus of choline avid disease along the right posterior bladder wall. New choline avid node metastatic disease including a right supraclavicular node. And increasing pulmonary infiltrate and/or atelectasis in the posterior lower lobes with reactive choline activity. so he was started on Zytiga/prednisone for one year along with an 3 monthly Zoladex. Mr Kauffman returned to the [facility] on 12/25/2018 and had choline C 11 scan done on same date showed when compared with choline scan done on 09/07/2018, increased choline uptake is seen again in the prostatectomy bed on the left and involving the posterior bladder base is essentially unchanged from the previous scan. The small lymph nodes with choline uptake seen on the previous scans are unchanged the pulmonary infiltrates have decreased. No new sites of abnormal choline uptake are noted. Clinically, patient was doing reasonably, but recently had evidence of disease progression confirmed with CT PET choline and progressive PSA. Mr Kauffman went to [facility] for follow-up and now palliative chemotherapy with cabazitaxel is recommended. Mr Kauffman had disease progression on Zytiga, which he was tolerating well but presented with progressive disease and he was also on 3 monthly Zoladex. At that point, Mr Kauffman has discontinued Xtandi and role of cabazitaxel was discussed. The treatment plan was cabazitaxel 20 mg/m??? every 3 weeks along with Neulasta to prevent chemotherapy-induced neutropenia as patient is a high risk. The initial plan was for him to receive 4 cycles of chemotherapy as recommended by [facility] and then he will go to clinic for follow-up evaluation including scans. Mr Kauffman was advised to pursue treatment with cabazitaxel with Neulasta support. Mr. Kauffman underwent right Port-A-Cath placement in the SVC/RA junction per Dr. Caballero at [facility] on February 14, 2020. He began his first cycle on 02/21/2020. He continues with every 3-month Zoladex. His last injection was given on April 29, 2020. He is currently off of all prednisone.And completed 8 cycles of Jevtana on July 23, 2020 And follow-up CT PET scan done on September 05, 2020 showed bladder metastatic disease with predominant involvement of left ureterovesical region and local invasion into pelvis including involvement of left pubic bone and there is nodularity at right ureterovesical region with involvement of distal right ureter resulting in moderate hydronephrosis Mild uptake within the subcentimeter left para-aortic lymph node is indeterminate., Patient is being followed by Dr. Lloyd, case was discussed with Dr. Lewis at [facility], he is recommended to discontinue Jevtana and start on apalutamide along with Zoladex and also low-dose dexamethasone and may consider consultation with radiation oncology regarding involved field radiation therapy. He went to [facility] for follow-up on 06/29/2019. He underwent PET/CT choline which showed likely tumor at the left of urethral vesicle junction has SUV of 4.5 compared to 3.4 on 12/25/2018. Nonspecific activity to the right of urethrovesical junction has SUV of 1.8 compared to 2.1 previously. Likely tumor involving left sided urinary bladder including the left ureterovesical junction has SUV of 6.2 compared to 6.6 previously. Likely metastatic activity in the proximal right external iliac lymph node has SUV of 2.6 versus 2.2 previously. Nonspecific activity along the right common iliac vessels and adjacent to lumbar degenerative changes as current SUV of 2.9 versus 2.1 previously and his PSA was 2.5. based on these findings, Dr. Lewis recommended continue with Zoladex but discontinue Zytiga and taper off prednisone. Initiate xtandi and underwent follow-up CT PET on December 27, 2019 at [facility] which showed disease progression when compared with scan done on June 28, 2019 and showed malignant appearing choline activity along the urinary bladder oneal has increased,, prominent disease in the left UVJ region has current SUV of 9.7 versus 6.2 on June 2019. Metastatic appearing nodularity in the fat to the right of the urinary bladder anteriorly has increased. Approximate 1.7 x 1.3 cm right external iliac node measuring 0.7 x 0.5 cm on June 28, 2019 and now with SUV of 6 compared to 2.6 at that time. A likely metastatic right common iliac node now measures 1.8 x 1.2 cm versus 1 x 0.7 cm on June 28, 2019. Multiple nodes in the thorax shows interval increase activity compared to June 28, 2019, these are nonspecific could be due to granulomatous inflammation. As far as his left pelvic pain is concern, which is under control and left nephrostomy tube was suggested rather than continuing with ureteral stent exchanges every couple of months. Mr Kauffman was seen by Dr. Lewis and MSI/BRCA 1 and 2 were checked and both came back negative- so no role of immunotherapy with pembrolizumab and olaparib. Clinical trial was also considered but considering patient's age and overall condition, further chemotherapy with cabazitaxel was recommended and patient agreed. And he was advised to continue Xtandi until cabazitaxel is planned. Mr Kauffman began his first cycle of cabazitaxel on February 21, 2020. His Zoladex was last given on 01/28/2020. Mr Kauffman underwent choline CT PET scan after 4 doses of Jevtana at [facility] which was done on May 09, 2020 showed stable to mildly improved choline avid bladder and pelvic node metastatic disease. Enlarging subcentimeter left periaortic retroperitoneal nodes with low-grade colon activity, technically indeterminate for new nodes metastatic disease., Could be reactive. Patient was evaluated by on May 13, 2020 and his recommendations were to continue with Jevtana for 4 more cycles and then repeat: CT PET scan and also continue with 3 monthly Zoladex. And continue left ureteral stent exchanges locally. He continues with treatment. Patient completed total 8 cycles of Jevtana on July 23, 2020 And Followup Choline PET/CT scan on September 05, 2020 reported bladdrmetastatic disease with predominant involvement of left ureterovesical region and local invasion into pelvis including involvement of left pubic bone. The nodularity at right ureterovesical region with involvement of distal right ureter resulting in moderate right hydronephrosis, which may be new; Mild uptake within the subcentimeter left para-aortic node is indeterminate; Uptake within mediastinal and bilateral hilar nodes is nonspecific Followup choline CT PET scan done on April 22, 2021 shows overall progression of metabolic prostate cancer within the urinary bladder and progressive invasion of left pubic bone. Extensive new and progressive presumed lymph node metastasis within the retroperitoneal right iliac chain persistent right moderate hydronephrosis Mr Kauffman had telemedicine follow-up with Dr. Lewis on May 11, 2021. Per Dr Lewis's his note, he recommended Jevtana plus/minus carboplatin or olaparib or Rubraca based on prior evidence of mutation. It was recommended to have follow-up evaluation or scans after 3 cycles of Jevtana or 3 months of olaparib. Mr Kauffman began singel agent Jevtana on 05/28/2021. He continues to receive Zoladex???his last dose was May 20, 2021. Also bone support with denosumab was initiated on 05/28/2021. Plan: His recently done PSMA scan showed persistent bladder lesion and pelvic lymph nodes and his PSA is stable as patient received last dose of chemotherapy with Jevtana alone on July 08, 2021 while continue with 3 monthly Zoladex which was given on October 16, 2021, as patient has persistent disease and this time he underwent PSMA scan rather choline CT PET scan for comparison and as per [facility] recommendations, we will be adding carboplatin AUC 5 every 3 weeks to his Jevtana Patient presents today for education on carboplatin which will be added to Jevtana and will be administered every 3 weeks. Handouts were provided and side effects were discussed including bone marrow suppression, nausea and vomiting, and peripheral neuropathy. We will administer 3-4 cycles and then repeat PSMA scan for comparison along with PSA. In the meantime we will continue his Zoladex to be administered every 3 months. He will start treatment today with carboplatin and Jevtana and return to the clinic in 1 week with CBC and CMP. Signed By: Leila Pryor N.P. <<Signature on File>>
== END 2021-11-05 07:55 | disposition home or self-care (01) ==
PROVIDERS: PCP Nurse Practitioner; Visit Provider Nurse Practitioner Family
DX: Z51.11 Encounter for antineoplastic chemotherapy (principal); C61 Malignant neoplasm of prostate; C79.11 Secondary malignant neoplasm of bladder; C77.5 Secondary and unspecified malignant neoplasm of intrapelvic lymph nodes; N39.0 Urinary tract infection, site not specified; E11.9 Type 2 diabetes mellitus without complications; Z79.899 Other long term (current) drug therapy
CPT/HCPCS: 36591; 80053; 85025; 96367; 96372; 96375; 96377; 96413; 96417; 99215; J1100; J1200; J1453; J2469; J2506; J3490; J7050; J9043; J9045

== ENCOUNTER 2021-11-12 08:26 | Outpatient (CLI) | payer MEDICARE, OTHER, SELFPAY ==
[2021-11-12 08:53] LABS: Basophils # 0.1 10^3/uL (0.0-0.1); Basophils % 1.3 %; Eosinophils # 0.3 10^3/uL (0.0-0.8); Eosinophils % 3.3 %; Hematocrit 46.5 % (42.0-52.0); Hemoglobin 14.6 g/dL (11.7-16.6); Lymphocytes # 2.7 10^3/uL (0.8-4.8); Lymphocytes % 31.2 %; Mean Corpuscular HGB Conc 31.4 g/dL (30.0-36.0); Mean Corpuscular Volume 86.1 fl (80-94); Mean Platelet Volume 10.3 fL (7.4-10.4); Monocytes # 0.7 10^3/uL (0.2-0.9); Monocytes % 8.3 %; Neutrophils # 4.76 10^3/uL (1.8-7.7); Neutrophils % 54.9 %; Nucleated Red Blood Cells % 0 %; Platelet Count 174 10^3/cmm (130-400); Red Cell Distribution Width 16.8 % (12.1-15.1); White Blood Count 8.7 10^3/uL (4.0-10.0)
[2021-11-12 09:28] LABS: Alanine Aminotransferase 23 U/L (0-41); Albumin Level 4.4 g/dL (3.5-5.2); Alkaline Phosphatase 72 IU/L (40-130); Anion Gap 18.7 (5-19); Aspartate Amino Transferase 16 U/L (0-40); Blood Urea Nitrogen 28 mg/dL (8-23); Calcium 9.7 mg/dL (8.5-10.5); Carbon Dioxide 21 mmol/L (22-29); Chloride 102 mmol/L (98-107); Globulin 2.9 g/dL (1.3-4.6); Glucose 145 mg/dL (65-115); Osmolality Calculated 294 mOsm/kg (285-295); Potassium 3.7 mmol/L (3.5-5.1); Sodium 138 mmol/L (136-145); Total Bilirubin 0.3 mg/dL (0.15-1.2); Total Protein 7.3 g/dL (6.6-8.7)
--- NOTE | 2021-11-13 12:11 | ONC FU_ITS ---
Dr. Alcazar follow up note Patient: Alex Kauffman Unit #: [id number]: [id number] Dicatated By: Tom Alcazar M.D.Date of Visit:Nov 12, 2021 Onc Med Follow-up/Prog Note History of Present Illness: Mr. Kauffman is a 81-year-old gentleman with long-standing history of prostate cancer. Initially, he was diagnosed with prostate cancer in May 2000. At that time, his PSA was 9 and a biopsy showed 2+ 2/3+4/3+3 with the largest volume equal 3+4. Underwent radical retropubic prostatectomy in June 2000. He was followed with PSA postoperatively and during follow-up it was noted his PSA was increasing but slowly. Finally in 2010 it was felt he needed further treatment. He was treated with radiation therapy which he completed in March 2011. It showed good response with PSA down to 0.05. During follow-up in November 2012, his PSA gone up to 0.21; in May 2013 up to 0.35 and in November 2013 it was 0.93. In February 2015, he underwent cystoscopic examination found to have local recurrence. It was resected and confirmed to be poorly differentiated prostate cancer. At that time he was started on combined androgen blockade postop. His treatment was complicated by recurrent hematuria and burning micturition. Follow-up lab showed a gradual increase in his PSA level and from 07/06/2017 it was 2.5 earlier while on combined androgen blockade. On 12/21/2017, he underwent cystoscopy with transurethral resection of a bladder lesion, cystourethroscopy with placement of ureteral stent on left side and dilation of urethra. 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 Mr Kauffman has had persistent urine tract infection and recently finished course of Levaquin. Repeat urinalysis on 02/16/2018 showed persistent urine tract infection: leukoesterase positive and persistent RBCs and WBCs on microscopic evaluation. Mr Kauffman reported he did notice pus drops every time after he finish his urination. His case was discussed with Dr. Lloyd, urologist, and he was referred for possible cystoscopy to rule out postsurgical abscess or other source of infection- before we started chemotherapy. Mr Kauffman reported that he has seen Dr. Lloyd. Dr Lloyd replaced the urinary stent and did notice lots of urinary debris. Mr Kauffman was started on long-term antibiotics with Hiprex 1 g by mouth daily. He began his first dose of docetaxel on 03/14/2018. He was not given Neulasta as he did not have insurance approval at the time of chemotherapy. He did have significant neutropenia on day 8 with an ANC of 600. He did not have symptoms and gradually recovered. He did qualify for Neulasta administration with cycle 2 and Concluded his chemotherapy e.g. 6 doses on 06/27/2018 He went to [facility] on 09/07/2018 and as per patient and his , patient was started on Zytiga/prednisone for one year in addition to Zoladex every 3 months as scans done at [facility] showed excellent response to chemotherapy but persistent lung nodule and pelvic lesion and his PSA done there was around 1. We will obtain follow-up note from [facility] and review. On 09/21/2018 patient had left ureteral stent replacement. Mr Kauffman went to [facility] for follow-up on 12/25/2018 and had choline C 11 scan done, when compared with one from 09/07/2018, showed increased choline uptake is again seen in the prostatectomy bed on the left and involving the posterior bladder base is essentially unchanged from the previous scan. The small lymph nodes with choline uptake seen on the previous scan are unchanged. The pulmonary infiltrate have decreased. No new sites of abnormal choline uptake are noted. He was Tolerating ADT with Zoladex and Zytiga/prednisone well. He went to [facility] for follow-up on 06/29/2019. He underwent PET/CT choline which showed likely tumor at the left of urethral vesicle junction has SUV of 4.5 compared to 3.4 on 12/25/2018. Nonspecific activity to the right of urethrovesical junction has SUV of 1.8 compared to 2.1 previously. Likely tumor involving left sided urinary bladder including the left ureterovesical junction has SUV of 6.2 compared to 6.6 previously. Likely metastatic activity in the proximal right external iliac lymph node has SUV of 2.6 versus 2.2 previously. Nonspecific activity along the right common iliac vessels and adjacent to lumbar degenerative changes as current SUV of 2.9 versus 2.1 previously and his PSA was 2.5. based on these findings, Dr. Lewis recommended continue with Zoladex but discontinue Zytiga and taper off prednisone. Initiate xtandi and underwent follow-up CT PET on December 27, 2019 at [facility] which showed disease progression when compared with scan done on June 28, 2019 and showed malignant appearing choline activity along the urinary bladder oneal has increased,, prominent disease in the left UVJ region has current SUV of 9.7 versus 6.2 on June 2019. Metastatic appearing nodularity in the fat to the right of the urinary bladder anteriorly has increased. Approximate 1.7 x 1.3 cm right external iliac node measuring 0.7 x 0.5 cm on June 28, 2019 and now with SUV of 6 compared to 2.6 at that time. A likely metastatic right common iliac node now measures 1.8 x 1.2 cm versus 1 x 0.7 cm on June 28, 2019. Multiple nodes in the thorax shows interval increase activity compared to June 28, 2019, these are nonspecific could be due to granulomatous inflammation. As far as his left pelvic pain is concern, which is under control and left nephrostomy tube was suggested rather than continuing with ureteral stent exchanges every couple of months. Mr Kauffman was seen by Dr. Lewis and MSI/BRCA 1 and 2 were checked and both came back negative- so no role of immunotherapy with pembrolizumab and olaparib. Clinical trial was also considered but considering patient's age and overall condition, further chemotherapy with cabazitaxel was recommended and patient agreed. And he was advised to continue Xtandi until cabazitaxel is planned. Mr Kauffman began his first cycle of cabazitaxel on February 21, 2020. His Zoladex was last given on 01/28/2020. Mr Kauffman underwent choline CT PET scan after 4 doses of Jevtana at [facility] which was done on May 09, 2020 showed stable to mildly improved choline avid bladder and pelvic node metastatic disease. Enlarging subcentimeter left periaortic retroperitoneal nodes with low-grade colon activity, technically indeterminate for new nodes metastatic disease., Could be reactive. Patient was evaluated by on May 13, 2020 and his recommendations were to continue with Jevtana for 4 more cycles and then repeat: CT PET scan and also continue with 3 monthly Zoladex. And continue left ureteral stent exchanges locally. He continues with treatment.Patient completed total 8 cycles of Jevtana on July 23, 2020 And Followup Choline PET/CT scan on September 05, 2020 reported bladdrmetastatic disease with predominant involvement of left ureterovesical region and local invasion into pelvis including involvement of left pubic bone. The nodularity at right ureterovesical region with involvement of distal right ureter resulting in moderate right hydronephrosis, which may be new; Mild uptake within the subcentimeter left para-aortic node is indeterminate; Uptake within mediastinal and bilateral hilar nodes is nonspecific Mr Kauffman is being followed by Dr. 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 He is scheduled see Dr. Lloyd on November 08, 2019 for possible left ureteral stent change. His prostate cancer was discussed with Dr. Lewis at [facility] in [facility]. Dr Lewis has recommended apalutamide or darolutamide while continuing with Zoladex and also consider low-dose dexamethasone. , Xtandi was discontinued and follow-up: Followup choline CT PET scan done on April 22, 2021 shows overall progression of metabolic prostate cancer within the urinary bladder and progressive invasion of left pubic bone. Extensive new and progressive presumed lymph node metastasis within the retroperitoneal right iliac chain persistent right moderate hydronephrosis Mr Kauffman had telemedicine follow-up with Dr. Lewis on May 11, 2021. Per Dr Lewis's his note, he recommended Jevtana plus/minus carboplatin or olaparib or Rubraca based on prior evidence of mutation. It was recommended to have follow-up evaluation or scans after 3 cycles of Jevtana or 3 months of olaparib., Patient was started on Jevtana q. 21 days on May 28, 2021 and plan to give him 3 cycles followed by choline CT PET scan, Patient underwent PSMA scan Patient has bilateral nephrostomy tubes, as per patient they were changed on October 27, 2021 by urologist in [place], [place]. Patient had follow-up PSMA scan done recently and he reviewed those findings with Dr. Lewis and his team at [facility] on October 28, 2021, as per they were suggested to consider adding carboplatin to Jevtana and also do next generation sequencing testing. Started on Jevtana/carboplatin on November 05, 2021 Came for follow-up, denies any specific complaints, no fever chills, no nausea or vomiting, no diarrhea constipation, no melena or hematochezia, no hemoptysis hematemesis, nephrostomy tubes functioning fine, patient tolerated carboplatin/Jevtana well Medications: [place] Tablet, effervescent Oral PRN, AZO Yeast Plus 1 Tablet Oral daily PRN, MetFORMIN HCl 1 Tablet (of 500 mg) Oral daily, oxyCODONE-Acetaminophen 1 Tablet (of 5-325 mg) Oral q 4 to 6 hours PRN, predniSONE 1 Tablet (of 5 mg) Oral b.i.d., Vitamin C 1 Tablet (of 1 g) Oral daily PRN Allergies: Cipro, Penicillins, and Sulfa Antibiotics. Review of Systems: Review of Systems is not available for this patient. Vital Signs: Performed on Nov 12, 2021 13:19 Height - 67.00 in Weight - 217.0 lbs (LOW) BSA - 2.09 sq.m BMI - 33.99 (HIGH) Temperature - 97.7 F (LOW) Pulse - 91 /min Respiration - 18 /min BP - 137/76 mm(hg) O2 Sat - 98 % Pain - 0 Fatigue - 5 Performance Status: 1 - No physically strenuous activity, but ambulatory and able to carry out light or sedentary work (e.g. office work, light house work). (ECOG) Physical Examination: ENMT - No mouth, no thrush, no jaundice, Respiratory - Lungs are clear to auscultation, Cardiovascular - Regular rate and rhythm of heart, Abdomen - Soft, bowel sounds present, nephrostomy tubes in place, Extremities - No visible edema. Lab/Imaging: Test performed on Nov 05, 2021 08:56 Creatinine 1.0 mg/dL Cr Clearance (Est) 85.05 mL/min Test performed on Nov 05, 2021 08:10 Sodium 142 mmol/L Potassium 4.1 mmol/L Chloride 106 mmol/L CO2 22 mmol/L Anion Gap 18.1 BUN 23 mg/dL Glucose 139 mg/dL Osmolality - Calculated 300 mOsm/kg Calcium 9.6 mg/dL Protein, Total 7.4 g/dL Albumin 4.4 g/dL Globulin 3.0 g/dL Bilirubin, Total 0.3 mg/dL ALT (SGPT) 21 U/L AST (SGOT) 17 U/L Alkaline Phosphatase 45 IU/L WBC 9.2 10 3/uL RBC 5.20 10 6/uL HGB 13.9 g/dL HCT 44.4 % MCV 85.4 fl MCH 26.7 pg MCHC 31.3 g/dL RDW 16.3 % Platelet Count 225 10 3/cmm MPV 9.4 fL Neutrophils 5.61 10 3/uL Lymphocytes 2.2 10 3/uL Monocytes 0.8 10 3/uL Eosinophils 0.6 10 3/uL Basophils 0.1 10 3/uL Neutrophil % 60.8 % Lymphocyte % 23.9 % Monocyte % 8.1 % Eosinophil % 6.3 % Basophils % 0.7 % NRBC % 0 % Test performed on Jun 04, 2021 08:31 Manual Segs % 53 % Manual Bands % 12.0 % Manual Lymphs % 23 % Atypical Lymphs % 0.0 % Total Cells Counted 100 Manual Monos % 9.0 % Manual Eos % 1 % Manual Basos % 0.0 % Metamyelocytes % 1.0 % Myelocytes % 1.0 % CBC Slide Review Slide Review Perform Platelet Estimate Decreased Manual Segs Abs 4.8 10/cmm Manual Bands Abs 1.1 10 3/cmm Manual Neutrophils Abs 5.9 10 3/cmm Manual Lymphocytes Abs 2.1 10 3/cmm Manual Monocytes Abs 0.8 10 3/cmm Manual Eosinophils Abs 0.0 10 3/cmm Manual Basophils Abs 0.0 10 3/cmm PSA 31.980 ng/mL Impression: Recurrent prostate cancer status post cystoscopy and excision in February 2015 followed by combined androgen blockade with Zoladex and Casodex. with gradual increasing PSA while on combined androgen blockade Initially he was diagnosed prostate cancer in 1999- at that time he underwent retropubic radical prostatectomy. Status post radiation therapy in 2010 for increasing PSA and lymphadenopathy. Hematuria/dysuria since February 2015. CT scan of abdomen pelvis done on 03/02/2018 showed soft tissue mass measuring 2.2 cm x 3.2 x 2.9 in the expected location of the prostate inseparable from the urinary bladder floor urinary bladder wall is diffusely thickened and there is a soft tissue attenuation between the soft tissue mass in the anterior infra levator rectal wall, rectal lesion not excluded Seen by Dr. Edwards on 10/24/2017 and his impression was changes in the rectum are probably due to prostate invasion rather than primary rectal lesion. 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 Mr Kauffman was seen by Dr Lloyd for persistent UTI symptoms post op and was placed on centerless grinder tender antibiotics. His symptoms resolved and he began recommended chemotherapy with docetaxel on 03/14/2018. Mr. Kauffman has tolerated the chemotherapy relatively well. He did have chemotherapy-induced neutropenia on day 8 of cycle 1. His initial ANC at time of treatment on 03/14/2018 was 13,300 on day 8 his ANC was 600. CT PET scan done on 05/06/2018 showed no evidence for recurrent or residual malignancy., Tiny scattered pelvic nodes are radiographically benign and FDG negative, no findings to indicate osseous metastatic disease and left-sided hydronephrosis is present and a ureteral catheter is in place. PSA checked on 05/15/2018 showed 1.81 compared to 6.49 on 03/14/2018 when chemotherapy with Taxotere was started And concluded his chemotherapy with Taxotere e.g. 6 doses on 06/27/2018 Status post left ureteral stent placement on 05/22/2018 Again replaced on 09/21/2018 Went to [facility] on 09/07/2018,Choline C 11 scan done on 09/07/2018 showed large choline avid recurrence in the prostatectomy bed involving the posterior bladder base has improved since prior exam, however suspicious new small focus of choline avid disease along the right posterior bladder wall. New choline avid node metastatic disease including a right supraclavicular node. And increasing pulmonary infiltrate and/or atelectasis in the posterior lower lobes with reactive choline activity. so he was started on Zytiga/prednisone for one year along with an 3 monthly Zoladex. Mr Kauffman returned to the [facility] on 12/25/2018 and had choline C 11 scan done on same date showed when compared with choline scan done on 09/07/2018, increased choline uptake is seen again in the prostatectomy bed on the left and involving the posterior bladder base is essentially unchanged from the previous scan. The small lymph nodes with choline uptake seen on the previous scans are unchanged the pulmonary infiltrates have decreased. No new sites of abnormal choline uptake are noted. Clinically, patient was doing reasonably, but recently had evidence of disease progression confirmed with CT PET choline and progressive PSA. Mr Kauffman went to [facility] for follow-up and now palliative chemotherapy with cabazitaxel is recommended. Mr Kauffman had disease progression on Zytiga, which he was tolerating well but presented with progressive disease and he was also on 3 monthly Zoladex. At that point, Mr Kauffman has discontinued Xtandi and role of cabazitaxel was discussed. The treatment plan was cabazitaxel 20 mg/m??? every 3 weeks along with Neulasta to prevent chemotherapy-induced neutropenia as patient is a high risk. The initial plan was for him to receive 4 cycles of chemotherapy as recommended by [facility] and then he will go to clinic for follow-up evaluation including scans. Mr Kauffman was advised to pursue treatment with cabazitaxel with Neulasta support. Mr. Kauffman underwent right Port-A-Cath placement in the SVC/RA junction per Dr. Caballero at [facility] on February 14, 2020. He began his first cycle on 02/21/2020. He continues with every 3-month Zoladex. His last injection was given on April 29, 2020. He is currently off of all prednisone.And completed 8 cycles of Jevtana on July 23, 2020 And follow-up CT PET scan done on September 05, 2020 showed bladder metastatic disease with predominant involvement of left ureterovesical region and local invasion into pelvis including involvement of left pubic bone and there is nodularity at right ureterovesical region with involvement of distal right ureter resulting in moderate hydronephrosis Mild uptake within the subcentimeter left para-aortic lymph node is indeterminate., Patient is being followed by Dr. Lloyd, case was discussed with Dr. Lewis at [facility], he is recommended to discontinue Jevtana and start on apalutamide along with Zoladex and also low-dose dexamethasone and may consider consultation with radiation oncology regarding involved field radiation therapy. He went to [facility] for follow-up on 06/29/2019. He underwent PET/CT choline which showed likely tumor at the left of urethral vesicle junction has SUV of 4.5 compared to 3.4 on 12/25/2018. Nonspecific activity to the right of urethrovesical junction has SUV of 1.8 compared to 2.1 previously. Likely tumor involving left sided urinary bladder including the left ureterovesical junction has SUV of 6.2 compared to 6.6 previously. Likely metastatic activity in the proximal right external iliac lymph node has SUV of 2.6 versus 2.2 previously. Nonspecific activity along the right common iliac vessels and adjacent to lumbar degenerative changes as current SUV of 2.9 versus 2.1 previously and his PSA was 2.5. based on these findings, Dr. Lewis recommended continue with Zoladex but discontinue Zytiga and taper off prednisone. Initiate xtandi and underwent follow-up CT PET on December 27, 2019 at [facility] which showed disease progression when compared with scan done on June 28, 2019 and showed malignant appearing choline activity along the urinary bladder oneal has increased,, prominent disease in the left UVJ region has current SUV of 9.7 versus 6.2 on June 2019. Metastatic appearing nodularity in the fat to the right of the urinary bladder anteriorly has increased. Approximate 1.7 x 1.3 cm right external iliac node measuring 0.7 x 0.5 cm on June 28, 2019 and now with SUV of 6 compared to 2.6 at that time. A likely metastatic right common iliac node now measures 1.8 x 1.2 cm versus 1 x 0.7 cm on June 28, 2019. Multiple nodes in the thorax shows interval increase activity compared to June 28, 2019, these are nonspecific could be due to granulomatous inflammation. As far as his left pelvic pain is concern, which is under control and left nephrostomy tube was suggested rather than continuing with ureteral stent exchanges every couple of months. Mr Kauffman was seen by Dr. Lewis and MSI/BRCA 1 and 2 were checked and both came back negative- so no role of immunotherapy with pembrolizumab and olaparib. Clinical trial was also considered but considering patient's age and overall condition, further chemotherapy with cabazitaxel was recommended and patient agreed. And he was advised to continue Xtandi until cabazitaxel is planned. Mr Kauffman began his first cycle of cabazitaxel on February 21, 2020. His Zoladex was last given on 01/28/2020. Mr Kauffman underwent choline CT PET scan after 4 doses of Jevtana at [facility] which was done on May 09, 2020 showed stable to mildly improved choline avid bladder and pelvic node metastatic disease. Enlarging subcentimeter left periaortic retroperitoneal nodes with low-grade colon activity, technically indeterminate for new nodes metastatic disease., Could be reactive. Patient was evaluated by on May 13, 2020 and his recommendations were to continue with Jevtana for 4 more cycles and then repeat: CT PET scan and also continue with 3 monthly Zoladex. And continue left ureteral stent exchanges locally. He continues with treatment. Patient completed total 8 cycles of Jevtana on July 23, 2020 And Followup Choline PET/CT scan on September 05, 2020 reported bladdrmetastatic disease with predominant involvement of left ureterovesical region and local invasion into pelvis including involvement of left pubic bone. The nodularity at right ureterovesical region with involvement of distal right ureter resulting in moderate right hydronephrosis, which may be new; Mild uptake within the subcentimeter left para-aortic node is indeterminate; Uptake within mediastinal and bilateral hilar nodes is nonspecific Followup choline CT PET scan done on April 22, 2021 shows overall progression of metabolic prostate cancer within the urinary bladder and progressive invasion of left pubic bone. Extensive new and progressive presumed lymph node metastasis within the retroperitoneal right iliac chain persistent right moderate hydronephrosis Mr Kauffman had telemedicine follow-up with Dr. Lewis on May 11, 2021. Per Dr Lewis's his note, he recommended Jevtana plus/minus carboplatin or olaparib or Rubraca based on prior evidence of mutation. It was recommended to have follow-up evaluation or scans after 3 cycles of Jevtana or 3 months of olaparib. Mr Kauffman began singel agent Jevtana on 05/28/2021. He continues to receive Zoladex???his last dose was May 20, 2021. Also bone support with denosumab was initiated on 05/28/2021. Plan: Discussed with patient regarding his labs white blood count 8.7 hemoglobin 14.6 hematocrit 46.5 platelets 174,000 CMP within normal limits Clinically, patient doing well with no new signs symptom suggestive of disease progression, patient recently started on carboplatin/Jevtana, tolerated first dose well, his follow-up lab work-up is in normal range, will continue to monitor return to clinic in 1 week with CBC CMP. Signed By: Tom Alcazar M.D. <<Signature on File>>
== END 2021-11-12 08:27 | disposition home or self-care (01) ==
PROVIDERS: PCP Nurse Practitioner; Visit Provider Internal Medicine Hematology & Oncology
DX: C61 Malignant neoplasm of prostate (principal); C79.51 Secondary malignant neoplasm of bone; C79.11 Secondary malignant neoplasm of bladder; C77.8 Secondary and unspecified malignant neoplasm of lymph nodes of multiple regions; N02.9 Recurrent and persistent hematuria with unspecified morphologic changes; R30.0 Dysuria; N39.0 Urinary tract infection, site not specified; J98.11 Atelectasis; N13.30 Unspecified hydronephrosis; Z79.2 Long term (current) use of antibiotics; Z79.52 Long term (current) use of systemic steroids; Z79.818 Long term (current) use of other agents affecting estrogen receptors and estrogen levels; Z79.899 Other long term (current) drug therapy
CPT/HCPCS: 36591; 80053; 84153; 85025; 99215

== ENCOUNTER 2021-11-19 11:52 | Outpatient (CLI) | payer MEDICARE, OTHER, SELFPAY ==
[2021-11-19 12:32] LABS: Basophils # 0.1 10^3/uL (0.0-0.1); Basophils % 0.5 %; Eosinophils # 0.1 10^3/uL (0.0-0.8); Eosinophils % 0.5 %; Hematocrit 44.9 % (42.0-52.0); Hemoglobin 14.2 g/dL (11.7-16.6); Lymphocytes # 2.2 10^3/uL (0.8-4.8); Lymphocytes % 19.8 %; Mean Corpuscular HGB Conc 31.6 g/dL (30.0-36.0); Mean Corpuscular Volume 85.4 fl (80-94); Mean Platelet Volume 9.6 fL (7.4-10.4); Monocytes # 0.9 10^3/uL (0.2-0.9); Monocytes % 8.1 %; Neutrophils % 69.2 %; Nucleated Red Blood Cells % 0 %; Platelet Count 169 10^3/cmm (130-400); Red Blood Count 5.26 10^6/uL (4.1-5.3); Red Cell Distribution Width 18.7 % (12.1-15.1); White Blood Count 10.8 10^3/uL (4.0-10.0)
[2021-11-19 13:09] LABS: Alanine Aminotransferase 33 U/L (0-41); Albumin Level 4.3 g/dL (3.5-5.2); Alkaline Phosphatase 55 IU/L (40-130); Anion Gap 16.7 (5-19); Aspartate Amino Transferase 16 U/L (0-40); Blood Urea Nitrogen 22 mg/dL (8-23); Calcium 9.3 mg/dL (8.5-10.5); Carbon Dioxide 20 mmol/L (22-29); Chloride 106 mmol/L (98-107); Globulin 3.2 g/dL (1.3-4.6); Glucose 130 mg/dL (65-115); Osmolality Calculated 293 mOsm/kg (285-295); Potassium 3.7 mmol/L (3.5-5.1); Sodium 139 mmol/L (136-145); Total Bilirubin 0.2 mg/dL (0.15-1.2); Total Protein 7.5 g/dL (6.6-8.7)
--- NOTE | 2021-11-23 16:12 | ONC FU_ITS ---
Leila Pryor Progress Note Patient: Alex Kauffman Unit #: [id number]: 1940 Dicatated By: Leila Pryor N.P.Date of Visit:Nov 19, 2021 Onc MED Follow-up/Prog Note Chief Complaint: Prostate cancer History of Present Illness: Mr. Kauffman is a 81-year-old gentleman with long-standing history of prostate cancer. Initially, he was diagnosed with prostate cancer in May 2000. At that time, his PSA was 9 and a biopsy showed 2+ 2/3+4/3+3 with the largest volume equal 3+4. Underwent radical retropubic prostatectomy in June 2000. He was followed with PSA postoperatively and during follow-up it was noted his PSA was increasing but slowly. Finally in 2010 it was felt he needed further treatment. He was treated with radiation therapy which he completed in March 2011. It showed good response with PSA down to 0.05. During follow-up in November 2012, his PSA gone up to 0.21; in May 2013 up to 0.35 and in November 2013 it was 0.93. In February 2015, he underwent cystoscopic examination found to have local recurrence. It was resected and confirmed to be poorly differentiated prostate cancer. At that time he was started on combined androgen blockade postop. His treatment was complicated by recurrent hematuria and burning micturition. Follow-up lab showed a gradual increase in his PSA level and from 07/06/2017 it was 2.5 earlier while on combined androgen blockade. On 12/21/2017, he underwent cystoscopy with transurethral resection of a bladder lesion, cystourethroscopy with placement of ureteral stent on left side and dilation of urethra. 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 Mr Kauffman has had persistent urine tract infection and recently finished course of Levaquin. Repeat urinalysis on 02/16/2018 showed persistent urine tract infection: leukoesterase positive and persistent RBCs and WBCs on microscopic evaluation. Mr Kauffman reported he did notice pus drops every time after he finish his urination. His case was discussed with Dr. Lloyd, urologist, and he was referred for possible cystoscopy to rule out postsurgical abscess or other source of infection- before we started chemotherapy. Mr Kauffman reported that he has seen Dr. Lloyd. Dr Lloyd replaced the urinary stent and did notice lots of urinary debris. Mr Kauffman was started on long-term antibiotics with Hiprex 1 g by mouth daily. He began his first dose of docetaxel on 03/14/2018. He was not given Neulasta as he did not have insurance approval at the time of chemotherapy. He did have significant neutropenia on day 8 with an ANC of 600. He did not have symptoms and gradually recovered. He did qualify for Neulasta administration with cycle 2 and Concluded his chemotherapy e.g. 6 doses on 06/27/2018 He went to [facility] on 09/07/2018 and as per patient and his , patient was started on Zytiga/prednisone for one year in addition to Zoladex every 3 months as scans done at [facility] showed excellent response to chemotherapy but persistent lung nodule and pelvic lesion and his PSA done there was around 1. We will obtain follow-up note from [facility] and review. On 09/21/2018 patient had left ureteral stent replacement. Mr Kauffman went to [facility] for follow-up on 12/25/2018 and had choline C 11 scan done, when compared with one from 09/07/2018, showed increased choline uptake is again seen in the prostatectomy bed on the left and involving the posterior bladder base is essentially unchanged from the previous scan. The small lymph nodes with choline uptake seen on the previous scan are unchanged. The pulmonary infiltrate have decreased. No new sites of abnormal choline uptake are noted. He was Tolerating ADT with Zoladex and Zytiga/prednisone well. He went to [facility] for follow-up on 06/29/2019. He underwent PET/CT choline which showed likely tumor at the left of urethral vesicle junction has SUV of 4.5 compared to 3.4 on 12/25/2018. Nonspecific activity to the right of urethrovesical junction has SUV of 1.8 compared to 2.1 previously. Likely tumor involving left sided urinary bladder including the left ureterovesical junction has SUV of 6.2 compared to 6.6 previously. Likely metastatic activity in the proximal right external iliac lymph node has SUV of 2.6 versus 2.2 previously. Nonspecific activity along the right common iliac vessels and adjacent to lumbar degenerative changes as current SUV of 2.9 versus 2.1 previously and his PSA was 2.5. based on these findings, Dr. Lewis recommended continue with Zoladex but discontinue Zytiga and taper off prednisone. Initiate xtandi and underwent follow-up CT PET on December 27, 2019 at [facility] which showed disease progression when compared with scan done on June 28, 2019 and showed malignant appearing choline activity along the urinary bladder oneal has increased,, prominent disease in the left UVJ region has current SUV of 9.7 versus 6.2 on June 2019. Metastatic appearing nodularity in the fat to the right of the urinary bladder anteriorly has increased. Approximate 1.7 x 1.3 cm right external iliac node measuring 0.7 x 0.5 cm on June 28, 2019 and now with SUV of 6 compared to 2.6 at that time. A likely metastatic right common iliac node now measures 1.8 x 1.2 cm versus 1 x 0.7 cm on June 28, 2019. Multiple nodes in the thorax shows interval increase activity compared to June 28, 2019, these are nonspecific could be due to granulomatous inflammation. As far as his left pelvic pain is concern, which is under control and left nephrostomy tube was suggested rather than continuing with ureteral stent exchanges every couple of months. Mr Kauffman was seen by Dr. Lewis and MSI/BRCA 1 and 2 were checked and both came back negative- so no role of immunotherapy with pembrolizumab and olaparib. Clinical trial was also considered but considering patient's age and overall condition, further chemotherapy with cabazitaxel was recommended and patient agreed. And he was advised to continue Xtandi until cabazitaxel is planned. Mr Kauffman began his first cycle of cabazitaxel on February 21, 2020. His Zoladex was last given on 01/28/2020. Mr Kauffman underwent choline CT PET scan after 4 doses of Jevtana at [facility] which was done on May 09, 2020 showed stable to mildly improved choline avid bladder and pelvic node metastatic disease. Enlarging subcentimeter left periaortic retroperitoneal nodes with low-grade colon activity, technically indeterminate for new nodes metastatic disease., Could be reactive. Patient was evaluated by on May 13, 2020 and his recommendations were to continue with Jevtana for 4 more cycles and then repeat: CT PET scan and also continue with 3 monthly Zoladex. And continue left ureteral stent exchanges locally. He continues with treatment.Patient completed total 8 cycles of Jevtana on July 23, 2020 And Followup Choline PET/CT scan on September 05, 2020 reported bladdrmetastatic disease with predominant involvement of left ureterovesical region and local invasion into pelvis including involvement of left pubic bone. The nodularity at right ureterovesical region with involvement of distal right ureter resulting in moderate right hydronephrosis, which may be new; Mild uptake within the subcentimeter left para-aortic node is indeterminate; Uptake within mediastinal and bilateral hilar nodes is nonspecific Mr Kauffman is being followed by Dr. 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 He is scheduled see Dr. Lloyd on November 08, 2019 for possible left ureteral stent change. His prostate cancer was discussed with Dr. Lewis at [facility] in [facility]. Dr Lewis has recommended apalutamide or darolutamide while continuing with Zoladex and also consider low-dose dexamethasone. , Xtandi was discontinued and follow-up: Followup choline CT PET scan done on April 22, 2021 shows overall progression of metabolic prostate cancer within the urinary bladder and progressive invasion of left pubic bone. Extensive new and progressive presumed lymph node metastasis within the retroperitoneal right iliac chain persistent right moderate hydronephrosis Mr Kauffman had telemedicine follow-up with Dr. Lewis on May 11, 2021. Per Dr Lewis's his note, he recommended Jevtana plus/minus carboplatin or olaparib or Rubraca based on prior evidence of mutation. It was recommended to have follow-up evaluation or scans after 3 cycles of Jevtana or 3 months of olaparib., Patient was started on Jevtana q. 21 days on May 28, 2021 and plan to give him 3 cycles followed by choline CT PET scan, Patient underwent PSMA scan Patient has bilateral nephrostomy tubes, as per patient they were changed on October 27, 2021 by urologist in [place], [place]. Patient had follow-up PSMA scan done recently and he reviewed those findings with Dr. Lewis and his team at [facility] on October 28, 2021, as per they were suggested to consider adding carboplatin to Jevtana and also do next generation sequencing testing. Started on Jevtana/carboplatin on November 05, 2021 Patient presents today for follow-up after starting carboplatin and Jevtana on 11/05/2021. He states he has tolerated it well. He does have some moderate fatigue. But his appetite is good. No fever, chills, night sweats. No sinus drainage or mouth sores. No shortness of breath, cough, chest pain. No GI problems. No joint or bone pain. No headaches or dizziness. Review Of Symptoms: See above Past Medical History: Type II diabetes Past Surgical History: Colonoscopy Radical retropubic prostatectomy Right knee surgery Left kidney stent replacement in 2019 Kidney stent replacement in 2018 Kidney stent replacement in 2018 Stent replacement is done every 2 monthes Allergies: Cipro, Penicillins, and Sulfa Antibiotics. Medications: Caroline-Chester Tablet, effervescent Oral PRN MetFORMIN HCl 1 Tablet (of 500 mg) Oral daily oxyCODONE-Acetaminophen 1 Tablet (of 5-325 mg) Oral q 4 to 6 hours PRN predniSONE 1 Tablet (of 5 mg) Oral b.i.d. Vitamin C 1 Tablet (of 1 g) Oral daily PRN Family History: Mr. Kauffman's mother at age 75. Mr. Kauffman's father at age 87. Mr. Kauffman has 2 brothers: 2 . Mr. Kauffman's first brother's polio. Another brother's coronary artery disease. Social History: Mr. Kauffman is and he is retired. Mr. Kauffman no longer smokes. He has no history of drinking. He has indicated exposure to the following products: chewing tobacco. Mr. Kauffman reports the following support systems: lives with spouse, significant other, family, or friends. His diet consists of regular meals. formerly chewed tobacco, quit in 2000. Physical Examination: Performed on Nov 19, 2021 13:28: Height - 67.00 in, Weight - 220.2 lbs (HIGH), BSA - 2.11 sq.m, BMI - 34.49 (HIGH), Temperature - 98.0 F (LOW), Pulse - 82 /min, Respiration - 16 /min, BP - 142/81 mm(hg) (HIGH), O2 Sat - 94 % (LOW), Pain - 0, and Fatigue - 6. Performance Status: 1 - No physically strenuous activity, but ambulatory and able to carry out light or sedentary work (e.g. office work, light house work). (ECOG) Constitutional Alert, cooperative, oriented. Mood and affect appropriate. Appears close to chronological age. Well nourished. Well developed. Head Normocephalic; no scars. Respiratory Lungs are clear to auscultation without rhonchi or wheezing. Cardiovascular Regular rate and rhythm of heart without murmurs, gallops or rubs. Musculoskeletal No tenderness or swelling, normal range of motion without obvious weakness. Psychiatric Alert and oriented times three. Coherent speech. Verbalizes understanding of our discussions today. Laboratory: Test performed on Nov 19, 2021 12:10 Sodium 139 mmol/L Potassium 3.7 mmol/L Chloride 106 mmol/L CO2 20 mmol/L Anion Gap 16.7 BUN 22 mg/dL Creatinine 0.7 mg/dL Cr Clearance (Est) 121.5000 mL/min Glucose 130 mg/dL Osmolality - Calculated 293 mOsm/kg Calcium 9.3 mg/dL Protein, Total 7.5 g/dL Albumin 4.3 g/dL Globulin 3.2 g/dL Bilirubin, Total 0.2 mg/dL ALT (SGPT) 33 U/L AST (SGOT) 16 U/L Alkaline Phosphatase 55 IU/L WBC 10.8 10 3/uL RBC 5.26 10 6/uL HGB 14.2 g/dL HCT 44.9 % MCV 85.4 fl MCH 27.0 pg MCHC 31.6 g/dL RDW 18.7 % Platelet Count 169 10 3/cmm MPV 9.6 fL Neutrophils 7.50 10 3/uL Lymphocytes 2.2 10 3/uL Monocytes 0.9 10 3/uL Eosinophils 0.1 10 3/uL Basophils 0.1 10 3/uL Neutrophil % 69.2 % Lymphocyte % 19.8 % Monocyte % 8.1 % Eosinophil % 0.5 % Basophils % 0.5 % NRBC % 0 % Test performed on Jun 04, 2021 08:31 Manual Segs % 53 % Manual Bands % 12.0 % Manual Lymphs % 23 % Atypical Lymphs % 0.0 % Total Cells Counted 100 Manual Monos % 9.0 % Manual Eos % 1 % Manual Basos % 0.0 % Metamyelocytes % 1.0 % Myelocytes % 1.0 % CBC Slide Review Slide Review Perform Platelet Estimate Decreased Manual Segs Abs 4.8 10/cmm Manual Bands Abs 1.1 10 3/cmm Manual Neutrophils Abs 5.9 10 3/cmm Manual Lymphocytes Abs 2.1 10 3/cmm Manual Monocytes Abs 0.8 10 3/cmm Manual Eosinophils Abs 0.0 10 3/cmm Manual Basophils Abs 0.0 10 3/cmm PSA 31.980 ng/mL Impression: Recurrent prostate cancer status post cystoscopy and excision in February 2015 followed by combined androgen blockade with Zoladex and Casodex. with gradual increasing PSA while on combined androgen blockade Initially he was diagnosed prostate cancer in 1999- at that time he underwent retropubic radical prostatectomy. Status post radiation therapy in 2010 for increasing PSA and lymphadenopathy. Hematuria/dysuria since February 2015. CT scan of abdomen pelvis done on 03/02/2018 showed soft tissue mass measuring 2.2 cm x 3.2 x 2.9 in the expected location of the prostate inseparable from the urinary bladder floor urinary bladder wall is diffusely thickened and there is a soft tissue attenuation between the soft tissue mass in the anterior infra levator rectal wall, rectal lesion not excluded Seen by Dr. Edwards on 10/24/2017 and his impression was changes in the rectum are probably due to prostate invasion rather than primary rectal lesion. 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 Mr Kauffman was seen by Dr Lloyd for persistent UTI symptoms post op and was placed on terminal operator antibiotics. His symptoms resolved and he began recommended chemotherapy with docetaxel on 03/14/2018. Mr. Kauffman has tolerated the chemotherapy relatively well. He did have chemotherapy-induced neutropenia on day 8 of cycle 1. His initial ANC at time of treatment on 03/14/2018 was 13,300 on day 8 his ANC was 600. CT PET scan done on 05/06/2018 showed no evidence for recurrent or residual malignancy., Tiny scattered pelvic nodes are radiographically benign and FDG negative, no findings to indicate osseous metastatic disease and left-sided hydronephrosis is present and a ureteral catheter is in place. PSA checked on 05/15/2018 showed 1.81 compared to 6.49 on 03/14/2018 when chemotherapy with Taxotere was started And concluded his chemotherapy with Taxotere e.g. 6 doses on 06/27/2018 Status post left ureteral stent placement on 05/22/2018 Again replaced on 09/21/2018 Went to [facility] on 09/07/2018,Choline C 11 scan done on 09/07/2018 showed large choline avid recurrence in the prostatectomy bed involving the posterior bladder base has improved since prior exam, however suspicious new small focus of choline avid disease along the right posterior bladder wall. New choline avid node metastatic disease including a right supraclavicular node. And increasing pulmonary infiltrate and/or atelectasis in the posterior lower lobes with reactive choline activity. so he was started on Zytiga/prednisone for one year along with an 3 monthly Zoladex. Mr Kauffman returned to the [facility] on 12/25/2018 and had choline C 11 scan done on same date showed when compared with choline scan done on 09/07/2018, increased choline uptake is seen again in the prostatectomy bed on the left and involving the posterior bladder base is essentially unchanged from the previous scan. The small lymph nodes with choline uptake seen on the previous scans are unchanged the pulmonary infiltrates have decreased. No new sites of abnormal choline uptake are noted. Clinically, patient was doing reasonably, but recently had evidence of disease progression confirmed with CT PET choline and progressive PSA. Mr Kauffman went to [facility] for follow-up and now palliative chemotherapy with cabazitaxel is recommended. Mr Kauffman had disease progression on Zytiga, which he was tolerating well but presented with progressive disease and he was also on 3 monthly Zoladex. At that point, Mr Kauffman has discontinued Xtandi and role of cabazitaxel was discussed. The treatment plan was cabazitaxel 20 mg/m??? every 3 weeks along with Neulasta to prevent chemotherapy-induced neutropenia as patient is a high risk. The initial plan was for him to receive 4 cycles of chemotherapy as recommended by [facility] and then he will go to clinic for follow-up evaluation including scans. Mr Kauffman was advised to pursue treatment with cabazitaxel with Neulasta support. Mr. Kauffman underwent right Port-A-Cath placement in the SVC/RA junction per Dr. Caballero at [facility] on February 14, 2020. He began his first cycle on 02/21/2020. He continues with every 3-month Zoladex. His last injection was given on April 29, 2020. He is currently off of all prednisone.And completed 8 cycles of Jevtana on July 23, 2020 And follow-up CT PET scan done on September 05, 2020 showed bladder metastatic disease with predominant involvement of left ureterovesical region and local invasion into pelvis including involvement of left pubic bone and there is nodularity at right ureterovesical region with involvement of distal right ureter resulting in moderate hydronephrosis Mild uptake within the subcentimeter left para-aortic lymph node is indeterminate., Patient is being followed by Dr. Lloyd, case was discussed with Dr. Lewis at [facility], he is recommended to discontinue Jevtana and start on apalutamide along with Zoladex and also low-dose dexamethasone and may consider consultation with radiation oncology regarding involved field radiation therapy. He went to [facility] for follow-up on 06/29/2019. He underwent PET/CT choline which showed likely tumor at the left of urethral vesicle junction has SUV of 4.5 compared to 3.4 on 12/25/2018. Nonspecific activity to the right of urethrovesical junction has SUV of 1.8 compared to 2.1 previously. Likely tumor involving left sided urinary bladder including the left ureterovesical junction has SUV of 6.2 compared to 6.6 previously. Likely metastatic activity in the proximal right external iliac lymph node has SUV of 2.6 versus 2.2 previously. Nonspecific activity along the right common iliac vessels and adjacent to lumbar degenerative changes as current SUV of 2.9 versus 2.1 previously and his PSA was 2.5. based on these findings, Dr. Lewis recommended continue with Zoladex but discontinue Zytiga and taper off prednisone. Initiate xtandi and underwent follow-up CT PET on December 27, 2019 at [facility] which showed disease progression when compared with scan done on June 28, 2019 and showed malignant appearing choline activity along the urinary bladder oneal has increased,, prominent disease in the left UVJ region has current SUV of 9.7 versus 6.2 on June 2019. Metastatic appearing nodularity in the fat to the right of the urinary bladder anteriorly has increased. Approximate 1.7 x 1.3 cm right external iliac node measuring 0.7 x 0.5 cm on June 28, 2019 and now with SUV of 6 compared to 2.6 at that time. A likely metastatic right common iliac node now measures 1.8 x 1.2 cm versus 1 x 0.7 cm on June 28, 2019. Multiple nodes in the thorax shows interval increase activity compared to June 28, 2019, these are nonspecific could be due to granulomatous inflammation. As far as his left pelvic pain is concern, which is under control and left nephrostomy tube was suggested rather than continuing with ureteral stent exchanges every couple of months. Mr Kauffman was seen by Dr. Lewis and MSI/BRCA 1 and 2 were checked and both came back negative- so no role of immunotherapy with pembrolizumab and olaparib. Clinical trial was also considered but considering patient's age and overall condition, further chemotherapy with cabazitaxel was recommended and patient agreed. And he was advised to continue Xtandi until cabazitaxel is planned. Mr Kauffman began his first cycle of cabazitaxel on February 21, 2020. His Zoladex was last given on 01/28/2020. Mr Kauffman underwent choline CT PET scan after 4 doses of Jevtana at [facility] which was done on May 09, 2020 showed stable to mildly improved choline avid bladder and pelvic node metastatic disease. Enlarging subcentimeter left periaortic retroperitoneal nodes with low-grade colon activity, technically indeterminate for new nodes metastatic disease., Could be reactive. Patient was evaluated by on May 13, 2020 and his recommendations were to continue with Jevtana for 4 more cycles and then repeat: CT PET scan and also continue with 3 monthly Zoladex. And continue left ureteral stent exchanges locally. He continues with treatment. Patient completed total 8 cycles of Jevtana on July 23, 2020 And Followup Choline PET/CT scan on September 05, 2020 reported bladdrmetastatic disease with predominant involvement of left ureterovesical region and local invasion into pelvis including involvement of left pubic bone. The nodularity at right ureterovesical region with involvement of distal right ureter resulting in moderate right hydronephrosis, which may be new; Mild uptake within the subcentimeter left para-aortic node is indeterminate; Uptake within mediastinal and bilateral hilar nodes is nonspecific Followup choline CT PET scan done on April 22, 2021 shows overall progression of metabolic prostate cancer within the urinary bladder and progressive invasion of left pubic bone. Extensive new and progressive presumed lymph node metastasis within the retroperitoneal right iliac chain persistent right moderate hydronephrosis Mr Kauffman had telemedicine follow-up with Dr. Lewis on May 11, 2021. Per Dr Lewis's his note, he recommended Jevtana plus/minus carboplatin or olaparib or Rubraca based on prior evidence of mutation. It was recommended to have follow-up evaluation or scans after 3 cycles of Jevtana or 3 months of olaparib. Mr Kauffman began singel agent Jevtana on 05/28/2021. He continues to receive Zoladex???his last dose was May 20, 2021. Also bone support with denosumab was initiated on 05/28/2021. Plan: Labs were reviewed with patient. His WBC 0.8, hemoglobin 14.2, hematocrit 44.9, platelets are 69,000. Other than glucose being mildly elevated at 130 his CMP was normal limits. Patient tolerated his first dose of carboplatin Jevtana that was given 2 weeks ago. He will return to the clinic in 1 week with CBC CMP and PSA and plan for cycle 2 of carboplatin and Jevtana. Signed By: Leila Pryor N.P. <<Signature on File>>
== END 2021-11-19 11:53 | disposition home or self-care (01) ==
PROVIDERS: PCP Nurse Practitioner; Visit Provider Nurse Practitioner Family
DX: C61 Malignant neoplasm of prostate (principal); C79.11 Secondary malignant neoplasm of bladder; C77.8 Secondary and unspecified malignant neoplasm of lymph nodes of multiple regions; N02.9 Recurrent and persistent hematuria with unspecified morphologic changes; R30.0 Dysuria; N13.30 Unspecified hydronephrosis; Z79.52 Long term (current) use of systemic steroids; Z79.818 Long term (current) use of other agents affecting estrogen receptors and estrogen levels; Z79.899 Other long term (current) drug therapy
CPT/HCPCS: 36591; 80053; 85025; 99214

== ENCOUNTER 2021-11-24 14:03 | Outpatient (CLI) | payer MEDICARE, OTHER, SELFPAY ==
[2021-11-24 14:32] LABS: Basophils # 0.1 10^3/uL (0.0-0.1); Basophils % 0.7 %; Eosinophils % 0.2 %; Hematocrit 44.3 % (42.0-52.0); Hemoglobin 14.1 g/dL (11.7-16.6); Mean Corpuscular HGB Conc 31.8 g/dL (30.0-36.0); Mean Corpuscular Hemoglobin 26.8 pg (28.0-34.0); Mean Corpuscular Volume 84.2 fl (80-94); Mean Platelet Volume 9.7 fL (7.4-10.4); Monocytes # 0.8 10^3/uL (0.2-0.9); Monocytes % 7.5 %; Neutrophils # 7.77 10^3/uL (1.8-7.7); Neutrophils % 72.1 %; Nucleated Red Blood Cells % 0 %; Platelet Count 169 10^3/cmm (130-400); Red Blood Count 5.26 10^6/uL (4.1-5.3); Red Cell Distribution Width 18.8 % (12.1-15.1); White Blood Count 10.8 10^3/uL (4.0-10.0)
[2021-11-24 14:52] LABS: Alanine Aminotransferase 24 U/L (0-41); Albumin Level 4.2 g/dL (3.5-5.2); Alkaline Phosphatase 46 IU/L (40-130); Aspartate Amino Transferase 13 U/L (0-40); Blood Urea Nitrogen 22 mg/dL (8-23); Calcium 9.4 mg/dL (8.5-10.5); Carbon Dioxide 21 mmol/L (22-29); Chloride 104 mmol/L (98-107); Globulin 2.9 g/dL (1.3-4.6); Glucose 140 mg/dL (65-115); Osmolality Calculated 292 mOsm/kg (285-295); Sodium 138 mmol/L (136-145); Total Bilirubin 0.2 mg/dL (0.15-1.2); Total Protein 7.1 g/dL (6.6-8.7)
== END 2021-11-24 14:04 | disposition home or self-care (01) ==
LOC: ONCMED 14:05
PROVIDERS: PCP Nurse Practitioner; Visit Provider Internal Medicine Hematology & Oncology
DX: C61 Malignant neoplasm of prostate (principal)
CPT/HCPCS: 36591; 80053; 85025

== ENCOUNTER 2021-11-25 12:03 | Outpatient (CLI) | payer MEDICARE, OTHER, SELFPAY ==
[2021-11-25] MEDS: famotidine 20 mg/2 mL INJ IVP (13:40)
[2021-11-25] MEDS: sodium chloride 0.9% 250 ML 75 ML IV (13:40)
[2021-11-25] MEDS: diphenhydrAMINE 50 mg/mL SDV 1mL 25 MG IV (13:48)
[2021-11-25] MEDS: palonosetron 0.25 mg/5 mL SDV IV (13:58)
[2021-11-25] MEDS: fosaprepitant 150 MG in sodium chloride 0.9% 150 ML 300 MG IV (14:20)
[2021-11-25] MEDS: pegfilgrastim 6 mg/0.6 mL Kit (onpro) SUBCUT (16:49)
--- NOTE | 2021-11-25 17:08 | ONC FU_ITS ---
Dr. Alcazar follow up note Patient: Alex Kauffman Unit #: [id number]: [id number] Dicatated By: Tom Alcazar M.D.Date of Visit:Nov 25, 2021 Onc Med Follow-up/Prog Note History of Present Illness: Mr. Kauffman is a 81-year-old gentleman with long-standing history of prostate cancer. Initially, he was diagnosed with prostate cancer in May 2000. At that time, his PSA was 9 and a biopsy showed 2+ 2/3+4/3+3 with the largest volume equal 3+4. Underwent radical retropubic prostatectomy in June 2000. He was followed with PSA postoperatively and during follow-up it was noted his PSA was increasing but slowly. Finally in 2010 it was felt he needed further treatment. He was treated with radiation therapy which he completed in March 2011. It showed good response with PSA down to 0.05. During follow-up in November 2012, his PSA gone up to 0.21; in May 2013 up to 0.35 and in November 2013 it was 0.93. In February 2015, he underwent cystoscopic examination found to have local recurrence. It was resected and confirmed to be poorly differentiated prostate cancer. At that time he was started on combined androgen blockade postop. His treatment was complicated by recurrent hematuria and burning micturition. Follow-up lab showed a gradual increase in his PSA level and from 07/06/2017 it was 2.5 earlier while on combined androgen blockade. On 12/21/2017, he underwent cystoscopy with transurethral resection of a bladder lesion, cystourethroscopy with placement of ureteral stent on left side and dilation of urethra. 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 Mr Kauffman has had persistent urine tract infection and recently finished course of Levaquin. Repeat urinalysis on 02/16/2018 showed persistent urine tract infection: leukoesterase positive and persistent RBCs and WBCs on microscopic evaluation. Mr Kauffman reported he did notice pus drops every time after he finish his urination. His case was discussed with Dr. Lloyd, urologist, and he was referred for possible cystoscopy to rule out postsurgical abscess or other source of infection- before we started chemotherapy. Mr Kauffman reported that he has seen Dr. Lloyd. Dr Lloyd replaced the urinary stent and did notice lots of urinary debris. Mr Kauffman was started on long-term antibiotics with Hiprex 1 g by mouth daily. He began his first dose of docetaxel on 03/14/2018. He was not given Neulasta as he did not have insurance approval at the time of chemotherapy. He did have significant neutropenia on day 8 with an ANC of 600. He did not have symptoms and gradually recovered. He did qualify for Neulasta administration with cycle 2 and Concluded his chemotherapy e.g. 6 doses on 06/27/2018 He went to [facility] on 09/07/2018 and as per patient and his , patient was started on Zytiga/prednisone for one year in addition to Zoladex every 3 months as scans done at [facility] showed excellent response to chemotherapy but persistent lung nodule and pelvic lesion and his PSA done there was around 1. We will obtain follow-up note from [facility] and review. On 09/21/2018 patient had left ureteral stent replacement. Mr Kauffman went to [facility] for follow-up on 12/25/2018 and had choline C 11 scan done, when compared with one from 09/07/2018, showed increased choline uptake is again seen in the prostatectomy bed on the left and involving the posterior bladder base is essentially unchanged from the previous scan. The small lymph nodes with choline uptake seen on the previous scan are unchanged. The pulmonary infiltrate have decreased. No new sites of abnormal choline uptake are noted. He was Tolerating ADT with Zoladex and Zytiga/prednisone well. He went to [facility] for follow-up on 06/29/2019. He underwent PET/CT choline which showed likely tumor at the left of urethral vesicle junction has SUV of 4.5 compared to 3.4 on 12/25/2018. Nonspecific activity to the right of urethrovesical junction has SUV of 1.8 compared to 2.1 previously. Likely tumor involving left sided urinary bladder including the left ureterovesical junction has SUV of 6.2 compared to 6.6 previously. Likely metastatic activity in the proximal right external iliac lymph node has SUV of 2.6 versus 2.2 previously. Nonspecific activity along the right common iliac vessels and adjacent to lumbar degenerative changes as current SUV of 2.9 versus 2.1 previously and his PSA was 2.5. based on these findings, Dr. Lewis recommended continue with Zoladex but discontinue Zytiga and taper off prednisone. Initiate xtandi and underwent follow-up CT PET on December 27, 2019 at [facility] which showed disease progression when compared with scan done on June 28, 2019 and showed malignant appearing choline activity along the urinary bladder oneal has increased,, prominent disease in the left UVJ region has current SUV of 9.7 versus 6.2 on June 2019. Metastatic appearing nodularity in the fat to the right of the urinary bladder anteriorly has increased. Approximate 1.7 x 1.3 cm right external iliac node measuring 0.7 x 0.5 cm on June 28, 2019 and now with SUV of 6 compared to 2.6 at that time. A likely metastatic right common iliac node now measures 1.8 x 1.2 cm versus 1 x 0.7 cm on June 28, 2019. Multiple nodes in the thorax shows interval increase activity compared to June 28, 2019, these are nonspecific could be due to granulomatous inflammation. As far as his left pelvic pain is concern, which is under control and left nephrostomy tube was suggested rather than continuing with ureteral stent exchanges every couple of months. Mr Kauffman was seen by Dr. Lewis and MSI/BRCA 1 and 2 were checked and both came back negative- so no role of immunotherapy with pembrolizumab and olaparib. Clinical trial was also considered but considering patient's age and overall condition, further chemotherapy with cabazitaxel was recommended and patient agreed. And he was advised to continue Xtandi until cabazitaxel is planned. Mr Kauffman began his first cycle of cabazitaxel on February 21, 2020. His Zoladex was last given on 01/28/2020. Mr Kauffman underwent choline CT PET scan after 4 doses of Jevtana at [facility] which was done on May 09, 2020 showed stable to mildly improved choline avid bladder and pelvic node metastatic disease. Enlarging subcentimeter left periaortic retroperitoneal nodes with low-grade colon activity, technically indeterminate for new nodes metastatic disease., Could be reactive. Patient was evaluated by on May 13, 2020 and his recommendations were to continue with Jevtana for 4 more cycles and then repeat: CT PET scan and also continue with 3 monthly Zoladex. And continue left ureteral stent exchanges locally. He continues with treatment.Patient completed total 8 cycles of Jevtana on July 23, 2020 And Followup Choline PET/CT scan on September 05, 2020 reported bladdrmetastatic disease with predominant involvement of left ureterovesical region and local invasion into pelvis including involvement of left pubic bone. The nodularity at right ureterovesical region with involvement of distal right ureter resulting in moderate right hydronephrosis, which may be new; Mild uptake within the subcentimeter left para-aortic node is indeterminate; Uptake within mediastinal and bilateral hilar nodes is nonspecific Mr Kauffman is being followed by Dr. 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 He is scheduled see Dr. Lloyd on November 08, 2019 for possible left ureteral stent change. His prostate cancer was discussed with Dr. Lewis at [facility] in [facility]. Dr Lewis has recommended apalutamide or darolutamide while continuing with Zoladex and also consider low-dose dexamethasone. , Xtandi was discontinued and follow-up: Followup choline CT PET scan done on April 22, 2021 shows overall progression of metabolic prostate cancer within the urinary bladder and progressive invasion of left pubic bone. Extensive new and progressive presumed lymph node metastasis within the retroperitoneal right iliac chain persistent right moderate hydronephrosis Mr Kauffman had telemedicine follow-up with Dr. Lewis on May 11, 2021. Per Dr Lewis's his note, he recommended Jevtana plus/minus carboplatin or olaparib or Rubraca based on prior evidence of mutation. It was recommended to have follow-up evaluation or scans after 3 cycles of Jevtana or 3 months of olaparib., Patient was started on Jevtana q. 21 days on May 28, 2021 and plan to give him 3 cycles followed by choline CT PET scan, Patient underwent PSMA scan Patient has bilateral nephrostomy tubes, as per patient they were changed on October 27, 2021 by urologist in [place], [place]. Patient had follow-up PSMA scan done recently and he reviewed those findings with Dr. Lewis and his team at [facility] on October 28, 2021, as per they were suggested to consider adding carboplatin to Jevtana and also do next generation sequencing testing. Started on Jevtana/carboplatin on November 05, 2021 And Continued with 3 monthly Zoladex Came for follow-up, denies any specific complaints, no fever chills, no nausea or vomiting, no diarrhea or constipation, no melena or hematochezia, no dysuria or hematuria, no new bony pains, chronic pelvic pain is under control with current pain medication, tolerating systemic therapy with carboplatin/Jevtana well otherwise Medications: Caroline-Plevna Tablet, effervescent Oral PRN, MetFORMIN HCl 1 Tablet (of 500 mg) Oral daily, oxyCODONE-Acetaminophen 1 Tablet (of 5-325 mg) Oral q 4 to 6 hours PRN, predniSONE 1 Tablet (of 5 mg) Oral b.i.d., Vitamin C 1 Tablet (of 1 g) Oral daily PRN Allergies: Cipro, Penicillins, and Sulfa Antibiotics. Review of Systems: Review of Systems is not available for this patient. Vital Signs: Performed on Nov 25, 2021 13:10 Height - 67.00 in Weight - 218.0 lbs (LOW) BSA - 2.10 sq.m BMI - 34.14 (HIGH) Temperature - 98.1 F (LOW) Pulse - 71 /min Respiration - 18 /min BP - 124/73 mm(hg) O2 Sat - 97 % Pain - 0 Fatigue - 5 Performance Status: 1 - No physically strenuous activity, but ambulatory and able to carry out light or sedentary work (e.g. office work, light house work). (ECOG) Physical Examination: ENMT - No mouth sores, no thrush, no jaundice, Respiratory - Lungs are clear to auscultation, Cardiovascular - Regular rate and rhythm of heart, Abdomen - Soft, bowel sounds present, Extremities - No visible edema. Lab/Imaging: Test performed on Nov 25, 2021 13:30 Creatinine 0.7 mg/dL Cr Clearance (Est) 121.50 mL/min Test performed on Nov 19, 2021 12:10 Sodium 139 mmol/L Potassium 3.7 mmol/L Chloride 106 mmol/L CO2 20 mmol/L Anion Gap 16.7 BUN 22 mg/dL Glucose 130 mg/dL Osmolality - Calculated 293 mOsm/kg Calcium 9.3 mg/dL Protein, Total 7.5 g/dL Albumin 4.3 g/dL Globulin 3.2 g/dL Bilirubin, Total 0.2 mg/dL ALT (SGPT) 33 U/L AST (SGOT) 16 U/L Alkaline Phosphatase 55 IU/L WBC 10.8 10 3/uL RBC 5.26 10 6/uL HGB 14.2 g/dL HCT 44.9 % MCV 85.4 fl MCH 27.0 pg MCHC 31.6 g/dL RDW 18.7 % Platelet Count 169 10 3/cmm MPV 9.6 fL Neutrophils 7.50 10 3/uL Lymphocytes 2.2 10 3/uL Monocytes 0.9 10 3/uL Eosinophils 0.1 10 3/uL Basophils 0.1 10 3/uL Neutrophil % 69.2 % Lymphocyte % 19.8 % Monocyte % 8.1 % Eosinophil % 0.5 % Basophils % 0.5 % NRBC % 0 % Test performed on Jun 04, 2021 08:31 Manual Segs % 53 % Manual Bands % 12.0 % Manual Lymphs % 23 % Atypical Lymphs % 0.0 % Total Cells Counted 100 Manual Monos % 9.0 % Manual Eos % 1 % Manual Basos % 0.0 % Metamyelocytes % 1.0 % Myelocytes % 1.0 % CBC Slide Review Slide Review Perform Platelet Estimate Decreased Manual Segs Abs 4.8 10/cmm Manual Bands Abs 1.1 10 3/cmm Manual Neutrophils Abs 5.9 10 3/cmm Manual Lymphocytes Abs 2.1 10 3/cmm Manual Monocytes Abs 0.8 10 3/cmm Manual Eosinophils Abs 0.0 10 3/cmm Manual Basophils Abs 0.0 10 3/cmm PSA 31.980 ng/mL Impression: Recurrent prostate cancer status post cystoscopy and excision in February 2015 followed by combined androgen blockade with Zoladex and Casodex. with gradual increasing PSA while on combined androgen blockade Initially he was diagnosed prostate cancer in 1999- at that time he underwent retropubic radical prostatectomy. Status post radiation therapy in 2010 for increasing PSA and lymphadenopathy. Hematuria/dysuria since February 2015. CT scan of abdomen pelvis done on 03/02/2018 showed soft tissue mass measuring 2.2 cm x 3.2 x 2.9 in the expected location of the prostate inseparable from the urinary bladder floor urinary bladder wall is diffusely thickened and there is a soft tissue attenuation between the soft tissue mass in the anterior infra levator rectal wall, rectal lesion not excluded Seen by Dr. Edwards on 10/24/2017 and his impression was changes in the rectum are probably due to prostate invasion rather than primary rectal lesion. 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 Mr Kauffman was seen by Dr Lloyd for persistent UTI symptoms post op and was placed on alf antibiotics. His symptoms resolved and he began recommended chemotherapy with docetaxel on 03/14/2018. Mr. Kauffman has tolerated the chemotherapy relatively well. He did have chemotherapy-induced neutropenia on day 8 of cycle 1. His initial ANC at time of treatment on 03/14/2018 was 13,300 on day 8 his ANC was 600. CT PET scan done on 05/06/2018 showed no evidence for recurrent or residual malignancy., Tiny scattered pelvic nodes are radiographically benign and FDG negative, no findings to indicate osseous metastatic disease and left-sided hydronephrosis is present and a ureteral catheter is in place. PSA checked on 05/15/2018 showed 1.81 compared to 6.49 on 03/14/2018 when chemotherapy with Taxotere was started And concluded his chemotherapy with Taxotere e.g. 6 doses on 06/27/2018 Status post left ureteral stent placement on 05/22/2018 Again replaced on 09/21/2018 Went to [facility] on 09/07/2018,Choline C 11 scan done on 09/07/2018 showed large choline avid recurrence in the prostatectomy bed involving the posterior bladder base has improved since prior exam, however suspicious new small focus of choline avid disease along the right posterior bladder wall. New choline avid node metastatic disease including a right supraclavicular node. And increasing pulmonary infiltrate and/or atelectasis in the posterior lower lobes with reactive choline activity. so he was started on Zytiga/prednisone for one year along with an 3 monthly Zoladex. Mr Kauffman returned to the [facility] on 12/25/2018 and had choline C 11 scan done on same date showed when compared with choline scan done on 09/07/2018, increased choline uptake is seen again in the prostatectomy bed on the left and involving the posterior bladder base is essentially unchanged from the previous scan. The small lymph nodes with choline uptake seen on the previous scans are unchanged the pulmonary infiltrates have decreased. No new sites of abnormal choline uptake are noted. Clinically, patient was doing reasonably, but recently had evidence of disease progression confirmed with CT PET choline and progressive PSA. Mr Kauffman went to [facility] for follow-up and now palliative chemotherapy with cabazitaxel is recommended. Mr Kauffman had disease progression on Zytiga, which he was tolerating well but presented with progressive disease and he was also on 3 monthly Zoladex. At that point, Mr Kauffman has discontinued Xtandi and role of cabazitaxel was discussed. The treatment plan was cabazitaxel 20 mg/m??? every 3 weeks along with Neulasta to prevent chemotherapy-induced neutropenia as patient is a high risk. The initial plan was for him to receive 4 cycles of chemotherapy as recommended by [facility] and then he will go to clinic for follow-up evaluation including scans. Mr Kauffman was advised to pursue treatment with cabazitaxel with Neulasta support. Mr. Kauffman underwent right Port-A-Cath placement in the SVC/RA junction per Dr. Caballero at [facility] on February 14, 2020. He began his first cycle on 02/21/2020. He continues with every 3-month Zoladex. His last injection was given on April 29, 2020. He is currently off of all prednisone.And completed 8 cycles of Jevtana on July 23, 2020 And follow-up CT PET scan done on September 05, 2020 showed bladder metastatic disease with predominant involvement of left ureterovesical region and local invasion into pelvis including involvement of left pubic bone and there is nodularity at right ureterovesical region with involvement of distal right ureter resulting in moderate hydronephrosis Mild uptake within the subcentimeter left para-aortic lymph node is indeterminate., Patient is being followed by Dr. Lloyd, case was discussed with Dr. Lewis at [facility], he is recommended to discontinue Jevtana and start on apalutamide along with Zoladex and also low-dose dexamethasone and may consider consultation with radiation oncology regarding involved field radiation therapy. He went to [facility] for follow-up on 06/29/2019. He underwent PET/CT choline which showed likely tumor at the left of urethral vesicle junction has SUV of 4.5 compared to 3.4 on 12/25/2018. Nonspecific activity to the right of urethrovesical junction has SUV of 1.8 compared to 2.1 previously. Likely tumor involving left sided urinary bladder including the left ureterovesical junction has SUV of 6.2 compared to 6.6 previously. Likely metastatic activity in the proximal right external iliac lymph node has SUV of 2.6 versus 2.2 previously. Nonspecific activity along the right common iliac vessels and adjacent to lumbar degenerative changes as current SUV of 2.9 versus 2.1 previously and his PSA was 2.5. based on these findings, Dr. Lewis recommended continue with Zoladex but discontinue Zytiga and taper off prednisone. Initiate xtandi and underwent follow-up CT PET on December 27, 2019 at [facility] which showed disease progression when compared with scan done on June 28, 2019 and showed malignant appearing choline activity along the urinary bladder oneal has increased,, prominent disease in the left UVJ region has current SUV of 9.7 versus 6.2 on June 2019. Metastatic appearing nodularity in the fat to the right of the urinary bladder anteriorly has increased. Approximate 1.7 x 1.3 cm right external iliac node measuring 0.7 x 0.5 cm on June 28, 2019 and now with SUV of 6 compared to 2.6 at that time. A likely metastatic right common iliac node now measures 1.8 x 1.2 cm versus 1 x 0.7 cm on June 28, 2019. Multiple nodes in the thorax shows interval increase activity compared to June 28, 2019, these are nonspecific could be due to granulomatous inflammation. As far as his left pelvic pain is concern, which is under control and left nephrostomy tube was suggested rather than continuing with ureteral stent exchanges every couple of months. Mr Kauffman was seen by Dr. Lewis and MSI/BRCA 1 and 2 were checked and both came back negative- so no role of immunotherapy with pembrolizumab and olaparib. Clinical trial was also considered but considering patient's age and overall condition, further chemotherapy with cabazitaxel was recommended and patient agreed. And he was advised to continue Xtandi until cabazitaxel is planned. Mr Kauffman began his first cycle of cabazitaxel on February 21, 2020. His Zoladex was last given on 01/28/2020. Mr Kauffman underwent choline CT PET scan after 4 doses of Jevtana at [facility] which was done on May 09, 2020 showed stable to mildly improved choline avid bladder and pelvic node metastatic disease. Enlarging subcentimeter left periaortic retroperitoneal nodes with low-grade colon activity, technically indeterminate for new nodes metastatic disease., Could be reactive. Patient was evaluated by on May 13, 2020 and his recommendations were to continue with Jevtana for 4 more cycles and then repeat: CT PET scan and also continue with 3 monthly Zoladex. And continue left ureteral stent exchanges locally. He continues with treatment. Patient completed total 8 cycles of Jevtana on July 23, 2020 And Followup Choline PET/CT scan on September 05, 2020 reported bladdrmetastatic disease with predominant involvement of left ureterovesical region and local invasion into pelvis including involvement of left pubic bone. The nodularity at right ureterovesical region with involvement of distal right ureter resulting in moderate right hydronephrosis, which may be new; Mild uptake within the subcentimeter left para-aortic node is indeterminate; Uptake within mediastinal and bilateral hilar nodes is nonspecific Followup choline CT PET scan done on April 22, 2021 shows overall progression of metabolic prostate cancer within the urinary bladder and progressive invasion of left pubic bone. Extensive new and progressive presumed lymph node metastasis within the retroperitoneal right iliac chain persistent right moderate hydronephrosis Mr Kauffman had telemedicine follow-up with Dr. Lewis on May 11, 2021. Per Dr Lewis's his note, he recommended Jevtana plus/minus carboplatin or olaparib or Rubraca based on prior evidence of mutation. It was recommended to have follow-up evaluation or scans after 3 cycles of Jevtana or 3 months of olaparib. Mr Kauffman began singel agent Jevtana on 05/28/2021. He continues to receive Zoladex???his last dose was May 20, 2021. Also bone support with denosumab was initiated on 05/28/2021. Plan: Discussed with patient regarding his labs white blood count 10.8 hemoglobin 14.1 vertical 44.3 platelets 169,000 CMP within normal limits Clinically, patient doing well with no new signs symptom suggestive of disease progression, will proceed with next cycle of carboplatin/Jevtana today and then he will return to clinic in 3 weeks with CBC CMP and PSA, planning is to consider follow-up PSMA scan, after next cycle of chemotherapy with carboplatin/Jevtana. In the meantime we will continue with 3 monthly Zoladex. Signed By: Tom Alcazar M.D. <<Signature on File>>
== END 2021-11-25 12:04 | disposition home or self-care (01) ==
PROVIDERS: PCP Nurse Practitioner; Visit Provider Internal Medicine Hematology & Oncology
DX: C61 Malignant neoplasm of prostate (principal)
CPT/HCPCS: 36591; 80053; 85025; 96367; 96372; 96375; 96377; 96401; 96413; 96417; 99215; J1100; J1200; J1453; J2469; J2506; J3490; J7050; J9043; J9045

== ENCOUNTER 2021-12-14 09:53 | Oncology outpatient (recurring) (ONCR) | payer MEDICARE, OTHER, SELFPAY ==
[2021-12-14 10:40] LABS: Basophils # 0.1 10^3/uL (0.0-0.1); Basophils % 0.9 %; Hematocrit 42.6 % (42.0-52.0); Hemoglobin 13.5 g/dL (11.7-16.6); Lymphocytes # 1.7 10^3/uL (0.8-4.8); Lymphocytes % 18.6 %; Mean Corpuscular HGB Conc 31.7 g/dL (30.0-36.0); Mean Corpuscular Hemoglobin 27.1 pg (28.0-34.0); Mean Corpuscular Volume 85.5 fl (80-94); Mean Platelet Volume 10.1 fL (7.4-10.4); Monocytes # 1.1 10^3/uL (0.2-0.9); Monocytes % 11.9 %; Neutrophils # 6.36 10^3/uL (1.8-7.7); Neutrophils % 68.3 %; Nucleated Red Blood Cells % 0 %; Platelet Count 221 10^3/cmm (130-400); Red Blood Count 4.98 10^6/uL (4.1-5.3); Red Cell Distribution Width 21.3 % (12.1-15.1); White Blood Count 9.3 10^3/uL (4.0-10.0)
[2021-12-14 10:58] LABS: Alanine Aminotransferase 25 U/L (0-41); Albumin Level 4.2 g/dL (3.5-5.2); Alkaline Phosphatase 54 IU/L (40-130); Anion Gap 15.1 (5-19); Aspartate Amino Transferase 14 U/L (0-40); Blood Urea Nitrogen 18 mg/dL (8-23); Calcium 9.2 mg/dL (8.5-10.5); Carbon Dioxide 24 mmol/L (22-29); Chloride 104 mmol/L (98-107); Glucose 125 mg/dL (65-115); Osmolality Calculated 291 mOsm/kg (285-295); Potassium 4.1 mmol/L (3.5-5.1); Sodium 139 mmol/L (136-145); Total Bilirubin 0.3 mg/dL (0.15-1.2); Total Protein 7.2 g/dL (6.6-8.7)
[2021-12-14] MEDS: sodium chloride 0.9% 250 ML 75 ML IV (12:52)
[2021-12-14] MEDS: fosaprepitant 150 MG in sodium chloride 0.9% 150 ML 300 MG IV (12:55)
[2021-12-14] MEDS: acetaminophen 325 mg Tablet 650 MG PO (13:29)
[2021-12-14] MEDS: diphenhydrAMINE 50 mg/mL SDV 1mL 25 MG IVP (13:31)
[2021-12-14] MEDS: famotidine 20 mg/2 mL INJ IVP (13:35)
[2021-12-14] MEDS: palonosetron 0.25 mg/5 mL SDV IVP (13:40)
[2021-12-14] MEDS: CARBOplatin 440 MG in sodium chloride 0.9% 500 ML 544 MG IV (15:06)
[2021-12-14] MEDS: pegfilgrastim 6 mg/0.6 mL Kit (onpro) SUBCUT (16:16)
[2021-12-14 16:31] VITALS: BP 141/78; PULSE 66; O2SAT 99
== END 2022-01-12 23:59 | disposition home or self-care (01) ==
PROVIDERS: Internal Medicine Hematology & Oncology; PCP Nurse Practitioner; Visit Provider Nurse Practitioner Family
DX: Z51.11 Encounter for antineoplastic chemotherapy (principal); C61 Malignant neoplasm of prostate; C78.5 Secondary malignant neoplasm of large intestine and rectum; C79.11 Secondary malignant neoplasm of bladder; C77.8 Secondary and unspecified malignant neoplasm of lymph nodes of multiple regions; N02.9 Recurrent and persistent hematuria with unspecified morphologic changes; R30.0 Dysuria; N13.30 Unspecified hydronephrosis; K52.1 Toxic gastroenteritis and colitis; T45.1X5A Adverse effect of antineoplastic and immunosuppressive drugs, initial encounter; Z79.818 Long term (current) use of other agents affecting estrogen receptors and estrogen levels; Z79.52 Long term (current) use of systemic steroids; Z79.899 Other long term (current) drug therapy
CPT/HCPCS: 36591; 80053; 84153; 85025; 96367; 96372; 96374; 96375; 96377; 96413; 96417; 99215; J1100; J1200; J1453; J2469; J2506; J3490; J7040; J7050; J9043; J9045

== ENCOUNTER 2022-01-26 08:30 | Oncology outpatient (recurring) (ONCR) | payer MEDICARE, OTHER, SELFPAY ==
[2022-01-20 09:13] LABS: Basophils # 0.1 10^3/uL (0.0-0.1); Basophils % 0.5 %; Eosinophils # 0.4 10^3/uL (0.0-0.8); Eosinophils % 4.3 %; Hematocrit 34.2 % (42.0-52.0); Hemoglobin 10.8 g/dL (11.7-16.6); Lymphocytes # 1.3 10^3/uL (0.8-4.8); Lymphocytes % 13.6 %; Mean Corpuscular HGB Conc 31.6 g/dL (30.0-36.0); Mean Corpuscular Hemoglobin 27.6 pg (28.0-34.0); Mean Corpuscular Volume 87.5 fl (80-94); Mean Platelet Volume 9.8 fL (7.4-10.4); Monocytes # 0.8 10^3/uL (0.2-0.9); Monocytes % 8.7 %; Neutrophils # 6.83 10^3/uL (1.8-7.7); Neutrophils % 72.2 %; Nucleated Red Blood Cells % 0 %; Platelet Count 270 10^3/cmm (130-400); Red Blood Count 3.91 10^6/uL (4.1-5.3); Red Cell Distribution Width 20.1 % (12.1-15.1); White Blood Count 9.5 10^3/uL (4.0-10.0)
[2022-01-20 09:38] LABS: Alanine Aminotransferase 15 U/L (0-41); Albumin Level 3.6 g/dL (3.5-5.2); Alkaline Phosphatase 55 IU/L (40-130); Anion Gap 16.2 (5-19); Aspartate Amino Transferase 21 U/L (0-40); Blood Urea Nitrogen 19 mg/dL (8-23); Calcium 8.8 mg/dL (8.5-10.5); Carbon Dioxide 24 mmol/L (22-29); Chloride 100 mmol/L (98-107); Globulin 3.7 g/dL (1.3-4.6); Glucose 141 mg/dL (65-115); Osmolality Calculated 287 mOsm/kg (285-295); Potassium 4.2 mmol/L (3.5-5.1); Sodium 136 mmol/L (136-145); Total Bilirubin 0.3 mg/dL (0.15-1.2); Total Protein 7.3 g/dL (6.6-8.7)
[2022-01-26 08:47] LABS: Basophils # 0.1 10^3/uL (0.0-0.1); Basophils % 0.9 %; Eosinophils # 0.3 10^3/uL (0.0-0.8); Eosinophils % 3.3 %; Hematocrit 38.8 % (42.0-52.0); Hemoglobin 12.2 g/dL (11.7-16.6); Lymphocytes # 2.2 10^3/uL (0.8-4.8); Lymphocytes % 22.5 %; Mean Corpuscular HGB Conc 31.4 g/dL (30.0-36.0); Mean Corpuscular Hemoglobin 27.5 pg (28.0-34.0); Mean Corpuscular Volume 87.6 fl (80-94); Mean Platelet Volume 9.5 fL (7.4-10.4); Monocytes # 0.8 10^3/uL (0.2-0.9); Monocytes % 7.8 %; Neutrophils # 6.28 10^3/uL (1.8-7.7); Nucleated Red Blood Cells % 0 %; Platelet Count 314 10^3/cmm (130-400); Red Blood Count 4.43 10^6/uL (4.1-5.3); Red Cell Distribution Width 20.1 % (12.1-15.1); White Blood Count 9.7 10^3/uL (4.0-10.0)
[2022-01-26 09:15] LABS: Alanine Aminotransferase 17 U/L (0-41); Albumin Level 3.9 g/dL (3.5-5.2); Alkaline Phosphatase 57 IU/L (40-130); Anion Gap 18.2 (5-19); Aspartate Amino Transferase 13 U/L (0-40); Blood Urea Nitrogen 26 mg/dL (8-23); Calcium 9.3 mg/dL (8.5-10.5); Carbon Dioxide 23 mmol/L (22-29); Chloride 103 mmol/L (98-107); Globulin 3.7 g/dL (1.3-4.6); Glucose 124 mg/dL (65-115); Osmolality Calculated 296 mOsm/kg (285-295); Potassium 4.2 mmol/L (3.5-5.1); Sodium 140 mmol/L (136-145); Total Bilirubin 0.3 mg/dL (0.15-1.2); Total Protein 7.6 g/dL (6.6-8.7)
== END 2022-02-11 23:59 | disposition home or self-care (01) ==
PROVIDERS: Internal Medicine Hematology & Oncology; PCP Nurse Practitioner; Visit Provider Nurse Practitioner Family
DX: C61 Malignant neoplasm of prostate (principal); C78.5 Secondary malignant neoplasm of large intestine and rectum; C79.11 Secondary malignant neoplasm of bladder; C77.8 Secondary and unspecified malignant neoplasm of lymph nodes of multiple regions; C79.51 Secondary malignant neoplasm of bone; N02.9 Recurrent and persistent hematuria with unspecified morphologic changes; R30.0 Dysuria; N13.30 Unspecified hydronephrosis; K52.1 Toxic gastroenteritis and colitis; T45.1X5A Adverse effect of antineoplastic and immunosuppressive drugs, initial encounter; R53.1 Weakness; R60.0 Localized edema; R53.83 Other fatigue; Z79.818 Long term (current) use of other agents affecting estrogen receptors and estrogen levels; Z79.52 Long term (current) use of systemic steroids; Z79.899 Other long term (current) drug therapy
CPT/HCPCS: 36591; 80053; 84153; 85025; 99215

== ENCOUNTER → 2022-01-28 10:02 | Outpatient (BNVA) | payer MEDICARE, OTHER, SELFPAY | PROVIDERS: Visit Provider Urology | DX: N13.5 Crossing vessel and stricture of ureter without hydronephrosis (principal); C61 Malignant neoplasm of prostate | CPT/HCPCS: 99213 ==

== ENCOUNTER 2022-04-08 08:00 | Oncology outpatient (recurring) (ONCR) | payer MEDICARE, OTHER, SELFPAY ==
[2022-04-05 14:20] LABS: Basophils # 0.1 10^3/uL (0.0-0.1); Basophils % 0.5 %; Eosinophils # 0.3 10^3/uL (0.0-0.8); Eosinophils % 2.8 %; Hematocrit 42.6 % (42.0-52.0); Hemoglobin 13.3 g/dL (11.7-16.6); Lymphocytes # 1.8 10^3/uL (0.8-4.8); Lymphocytes % 17.7 %; Mean Corpuscular HGB Conc 31.2 g/dL (30.0-36.0); Mean Corpuscular Hemoglobin 26.9 pg (28.0-34.0); Mean Corpuscular Volume 86.2 fl (80-94); Mean Platelet Volume 9.5 fL (7.4-10.4); Monocytes # 0.7 10^3/uL (0.2-0.9); Monocytes % 7.3 %; Neutrophils # 7.11 10^3/uL (1.8-7.7); Neutrophils % 71.2 %; Nucleated Red Blood Cells % 0 %; Platelet Count 226 10^3/cmm (130-400); Red Blood Count 4.94 10^6/uL (4.1-5.3)
[2022-04-05 14:52] LABS: Alanine Aminotransferase 13 U/L (0-41); Albumin Level 3.9 g/dL (3.5-5.2); Alkaline Phosphatase 56 U/L (40-130); Anion Gap 19.2 (5-19); Aspartate Amino Transferase 19 U/L (0-40); Blood Urea Nitrogen 22 mg/dL (8-23); Calcium 8.9 mg/dL (8.5-10.5); Carbon Dioxide 23 mmol/L (22-29); Chloride 100 mmol/L (98-107); Glucose 140 mg/dL (65-115); Osmolality Calculated 292 mOsm/kg (285-295); Potassium 4.2 mmol/L (3.5-5.1); Sodium 138 mmol/L (136-145); Total Bilirubin 0.2 mg/dL (0.15-1.2); Total Protein 7.9 g/dL (6.6-8.7)
[2022-04-05] MEDS: leuprolide 22.5 mg Kit IM (15:36)
[2022-04-08 08:40] LABS: Alanine Aminotransferase 9 U/L (0-41); Albumin Level 4.2 g/dL (3.5-5.2); Alkaline Phosphatase 57 U/L (40-130); Anion Gap 17.8 (5-19); Aspartate Amino Transferase 23 U/L (0-40); Blood Urea Nitrogen 21 mg/dL (8-23); Calcium 9.4 mg/dL (8.5-10.5); Carbon Dioxide 25 mmol/L (22-29); Chloride 103 mmol/L (98-107); Globulin 3.4 g/dL (1.3-4.6); Glucose 107 mg/dL (65-115); Osmolality Calculated 297 mOsm/kg (285-295); Potassium 3.8 mmol/L (3.5-5.1); Sodium 142 mmol/L (136-145); Total Bilirubin 0.2 mg/dL (0.15-1.2); Total Protein 7.6 g/dL (6.6-8.7)
[2022-04-08] MEDS: acetaminophen 325 mg Tablet 650 MG PO (09:25)
[2022-04-08] MEDS: sodium chloride 0.9% 250 ML 100 ML IV (09:25)
[2022-04-08] MEDS: palonosetron 0.25 mg/5 mL SDV IVP (09:26)
[2022-04-08] MEDS: diphenhydrAMINE 50 mg/mL SDV 1mL 25 MG IVP (09:37)
[2022-04-08] MEDS: famotidine 20 mg/2 mL INJ IVP (09:40)
[2022-04-08] MEDS: fosaprepitant 150 MG in sodium chloride 0.9% 150 ML 300 MG IV (09:42)
[2022-04-08] MEDS: SODIUM CHLORIDE 0.9% IV (11:46)
[2022-04-08] MEDS: CARBOPLATIN IV (11:46)
[2022-04-08] MEDS: pegfilgrastim 6 mg/0.6 mL Kit (onpro) SUBCUT (13:06)
[2022-04-08 13:08] VITALS: BP 125/69; PULSE 72; RESP 16; TEMP 35.8; O2SAT 96
== END 2022-04-09 11:12 | disposition home or self-care (01) ==
PROVIDERS: Internal Medicine Hematology & Oncology; PCP Nurse Practitioner; Visit Provider Nurse Practitioner Family
DX: Z51.11 Encounter for antineoplastic chemotherapy (principal); Z51.12 Encounter for antineoplastic immunotherapy; C61 Malignant neoplasm of prostate; C79.51 Secondary malignant neoplasm of bone; C79.11 Secondary malignant neoplasm of bladder; Z79.52 Long term (current) use of systemic steroids; Z79.818 Long term (current) use of other agents affecting estrogen receptors and estrogen levels; Z79.899 Other long term (current) drug therapy
CPT/HCPCS: 36591; 80053; 84153; 85025; 96367; 96375; 96377; 96402; 96413; 96417; 99214; 99215; J1100; J1200; J1453; J2469; J2506; J3490; J7040; J7050; J9043; J9045; J9217

== ENCOUNTER 2022-04-29 08:30 | Oncology outpatient (recurring) (ONCR) | payer MEDICARE, OTHER, SELFPAY ==
[2022-04-15 08:32] LABS: Basophils # 0.1 10^3/uL (0.0-0.1); Basophils % 0.6 %; Eosinophils # 0.1 10^3/uL (0.0-0.8); Eosinophils % 0.6 %; Hematocrit 42.4 % (42.0-52.0); Hemoglobin 13.4 g/dL (11.7-16.6); Lymphocytes # 2.3 10^3/uL (0.8-4.8); Lymphocytes % 28.9 %; Mean Corpuscular HGB Conc 31.6 g/dL (30.0-36.0); Mean Corpuscular Hemoglobin 26.8 pg (28.0-34.0); Mean Corpuscular Volume 84.8 fl (80-94); Neutrophils # 4.47 10^3/uL (1.8-7.7); Neutrophils % 56.1 %; Nucleated Red Blood Cells % 0 %; Platelet Count 155 10^3/cmm (130-400); Red Cell Distribution Width 17.9 % (12.1-15.1)
[2022-04-15 09:16] LABS: Alanine Aminotransferase 13 U/L (0-41); Albumin Level 4.2 g/dL (3.5-5.2); Alkaline Phosphatase 76 U/L (40-130); Anion Gap 17.9 (5-19); Aspartate Amino Transferase 11 U/L (0-40); Blood Urea Nitrogen 26 mg/dL (8-23); Calcium 9.1 mg/dL (8.5-10.5); Carbon Dioxide 22 mmol/L (22-29); Chloride 102 mmol/L (98-107); Glucose 133 mg/dL (65-115); Osmolality Calculated 293 mOsm/kg (285-295); Potassium 3.9 mmol/L (3.5-5.1); Sodium 138 mmol/L (136-145); Total Bilirubin 0.2 mg/dL (0.15-1.2); Total Protein 7.2 g/dL (6.6-8.7)
[2022-04-15 09:40] LABS: Slide Review Slide Review Perform
[2022-04-29 08:48] LABS: Basophils # 0.1 10^3/uL (0.0-0.1); Basophils % 0.9 %; Eosinophils % 0.1 %; Hematocrit 43.2 % (42.0-52.0); Hemoglobin 13.2 g/dL (11.7-16.6); Lymphocytes # 2.5 10^3/uL (0.8-4.8); Lymphocytes % 25.4 %; Mean Corpuscular HGB Conc 30.6 g/dL (30.0-36.0); Mean Corpuscular Volume 88.3 fl (80-94); Mean Platelet Volume 9.9 fL (7.4-10.4); Monocytes # 0.8 10^3/uL (0.2-0.9); Monocytes % 7.7 %; Nucleated Red Blood Cells % 0 %; Platelet Count 176 10^3/cmm (130-400); Red Blood Count 4.89 10^6/uL (4.1-5.3); Red Cell Distribution Width 21.1 % (12.1-15.1); White Blood Count 9.9 10^3/uL (4.0-10.0)
[2022-04-29 09:13] LABS: Alanine Aminotransferase 13 U/L (0-41); Albumin Level 4.2 g/dL (3.5-5.2); Alkaline Phosphatase 73 U/L (40-130); Anion Gap 18.9 (5-19); Aspartate Amino Transferase 29 U/L (0-40); Blood Urea Nitrogen 22 mg/dL (8-23); Calcium 9.2 mg/dL (8.5-10.5); Carbon Dioxide 23 mmol/L (22-29); Chloride 103 mmol/L (98-107); Globulin 2.8 g/dL (1.3-4.6); Glucose 136 mg/dL (65-115); Osmolality Calculated 297 mOsm/kg (285-295); Potassium 3.9 mmol/L (3.5-5.1); Sodium 141 mmol/L (136-145); Total Bilirubin 0.3 mg/dL (0.15-1.2)
[2022-04-29] MEDS: sodium chloride 0.9% 250 ML 100 ML IV (11:08)
[2022-04-29] MEDS: palonosetron 0.25 mg/5 mL SDV IVP (11:09)
[2022-04-29] MEDS: famotidine 20 mg/2 mL INJ IVP (11:11)
[2022-04-29] MEDS: diphenhydrAMINE 50 mg/mL SDV 1mL 25 MG IVP (11:12)
[2022-04-29] MEDS: fosaprepitant 150 MG in sodium chloride 0.9% 150 ML 300 MG IV (11:36)
[2022-04-29] MEDS: CARBOPLATIN IV (13:35)
[2022-04-29] MEDS: SODIUM CHLORIDE 0.9% IV (13:35)
[2022-04-29 14:44] VITALS: BP 126/69; PULSE 57; RESP 16; TEMP 36.1; O2SAT 98
== END 2022-04-30 08:26 | disposition home or self-care (01) ==
PROVIDERS: PCP Nurse Practitioner; Visit Provider Nurse Practitioner Family
DX: C61 Malignant neoplasm of prostate (principal); R97.21 Rising PSA following treatment for malignant neoplasm of prostate; Z79.818 Long term (current) use of other agents affecting estrogen receptors and estrogen levels; Z51.11 Encounter for antineoplastic chemotherapy; Z79.899 Other long term (current) drug therapy; Z79.52 Long term (current) use of systemic steroids; Z87.891 Personal history of nicotine dependence; Z90.79 Acquired absence of other genital organ(s); C79.51 Secondary malignant neoplasm of bone; N13.30 Unspecified hydronephrosis; C77.9 Secondary and unspecified malignant neoplasm of lymph node, unspecified; C79.11 Secondary malignant neoplasm of bladder
CPT/HCPCS: 36591; 80053; 84153; 85025; 96367; 96375; 96413; 96417; 99214; 99215; J1100; J1200; J1453; J2469; J3490; J7040; J7050; J9043; J9045

== ENCOUNTER 2022-07-29 10:51 | Oncology outpatient (recurring) (ONCR) | payer MEDICARE, OTHER, SELFPAY ==
[2022-07-29 11:27] LABS: Basophils % 0.3 %; Eosinophils # 0.2 10^3/uL (0.0-0.8); Eosinophils % 1.7 %; Hematocrit 42.7 % (42.0-52.0); Hemoglobin 13.3 g/dL (11.7-16.6); Lymphocytes # 1.3 10^3/uL (0.8-4.8); Mean Corpuscular HGB Conc 31.1 g/dL (30.0-36.0); Mean Corpuscular Hemoglobin 28.4 pg (28.0-34.0); Mean Platelet Volume 9.2 fL (7.4-10.4); Monocytes % 9.2 %; Neutrophils # 8.42 10^3/uL (1.8-7.7); Neutrophils % 76.3 %; Nucleated Red Blood Cells % 0 %; Platelet Count 225 10^3/cmm (130-400); Red Blood Count 4.69 10^6/uL (4.1-5.3); Red Cell Distribution Width 16.1 % (12.1-15.1)
[2022-07-29 11:55] LABS: Alanine Aminotransferase 38 U/L (0-41); Albumin Level 3.8 g/dL (3.5-5.2); Alkaline Phosphatase 55 U/L (40-130); Anion Gap 17.1 (5-19); Aspartate Amino Transferase 25 U/L (0-40); Blood Urea Nitrogen 23 mg/dL (8-23); Calcium 9.1 mg/dL (8.5-10.5); Carbon Dioxide 25 mmol/L (22-29); Chloride 97 mmol/L (98-107); Globulin 3.6 g/dL (1.3-4.6); Glucose 142 mg/dL (65-115); Osmolality Calculated 286 mOsm/kg (285-295); Potassium 4.1 mmol/L (3.5-5.1); Sodium 135 mmol/L (136-145); Total Bilirubin 0.2 mg/dL (0.15-1.2); Total Protein 7.4 g/dL (6.6-8.7)
== END 2022-08-14 23:59 | disposition home or self-care (01) ==
LOC: ONCMED 10:52
PROVIDERS: PCP Nurse Practitioner Family; Visit Provider Internal Medicine Hematology & Oncology
DX: C79.51 Secondary malignant neoplasm of bone (principal); N13.5 Crossing vessel and stricture of ureter without hydronephrosis; N30.20 Other chronic cystitis without hematuria; C61 Malignant neoplasm of prostate
CPT/HCPCS: 36591; 80053; 84153; 85025; 99213

== ENCOUNTER 2022-09-16 10:22 | Oncology outpatient (recurring) (ONCR) | payer MEDICARE, OTHER, SELFPAY ==
[2022-09-16 11:11] VITALS: BP 132/71; PULSE 82; RESP 18; TEMP 36.7; O2SAT 93
[2022-09-16 11:18] LABS: Basophils % 0.4 %; Eosinophils # 0.4 10^3/uL (0.0-0.8); Hematocrit 40.5 % (42.0-52.0); Hemoglobin 12.7 g/dL (11.7-16.6); Lymphocytes # 1.4 10^3/uL (0.8-4.8); Lymphocytes % 21.2 %; Mean Corpuscular HGB Conc 31.4 g/dL (30.0-36.0); Mean Corpuscular Hemoglobin 27.4 pg (28.0-34.0); Mean Corpuscular Volume 87.3 fl (80-94); Mean Platelet Volume 9.1 fL (7.4-10.4); Monocytes # 0.8 10^3/uL (0.2-0.9); Monocytes % 11.6 %; Neutrophils # 4.07 10^3/uL (1.8-7.7); Neutrophils % 60.1 %; Nucleated Red Blood Cells % 0 %; Platelet Count 226 10^3/cmm (130-400); Red Blood Count 4.64 10^6/uL (4.1-5.3); Red Cell Distribution Width 17.4 % (12.1-15.1); White Blood Count 6.8 10^3/uL (4.0-10.0)
[2022-09-16 11:36] LABS: Alanine Aminotransferase 24 U/L (0-41); Albumin Level 3.7 g/dL (3.5-5.2); Alkaline Phosphatase 43 U/L (40-130); Anion Gap 16.7 (5-19); Aspartate Amino Transferase 27 U/L (0-40); Blood Urea Nitrogen 13 mg/dL (8-23); Calcium 9.1 mg/dL (8.5-10.5); Carbon Dioxide 24 mmol/L (22-29); Chloride 101 mmol/L (98-107); Globulin 3.3 g/dL (1.3-4.6); Glucose 153 mg/dL (65-115); Osmolality Calculated 289 mOsm/kg (285-295); Potassium 3.7 mmol/L (3.5-5.1); Sodium 138 mmol/L (136-145); Total Bilirubin 0.3 mg/dL (0.15-1.2)
[2022-09-16 11:46] LABS: NT Pro B Type Natriuretic Pept 185 pg/mL (0-450)
== END 2022-10-12 23:59 | disposition home or self-care (01) ==
LOC: ONCMED 10:25
PROVIDERS: PCP Nurse Practitioner Family; Visit Provider Internal Medicine Hematology & Oncology
DX: C61 Malignant neoplasm of prostate (principal); C79.51 Secondary malignant neoplasm of bone
CPT/HCPCS: 36591; 80053; 83880; 85025

== ENCOUNTER → 2022-09-20 11:22 | Outpatient (BNVA) | payer MEDICARE, OTHER, SELFPAY | PROVIDERS: PCP Nurse Practitioner Family; Visit Provider Podiatrist Foot & Ankle Surgery | DX: I73.9 Peripheral vascular disease, unspecified (principal); E11.9 Type 2 diabetes mellitus without complications; M21.6X1 Other acquired deformities of right foot; M21.6X2 Other acquired deformities of left foot; L90.9 Atrophic disorder of skin, unspecified; R60.9 Edema, unspecified; B35.3 Tinea pedis | CPT/HCPCS: 11721; 99204 ==

== ENCOUNTER 2022-10-22 10:11 | Oncology outpatient (recurring) (ONCR) | payer MEDICARE, OTHER, SELFPAY ==
[2022-10-22 11:10] LABS: Basophils % 0.5 %; Eosinophils # 0.5 10^3/uL (0.0-0.8); Eosinophils % 6.7 %; Hematocrit 39.5 % (42.0-52.0); Hemoglobin 12.4 g/dL (11.7-16.6); Lymphocytes # 1.4 10^3/uL (0.8-4.8); Lymphocytes % 18.5 %; Mean Corpuscular HGB Conc 31.4 g/dL (30.0-36.0); Mean Corpuscular Hemoglobin 27.6 pg (28.0-34.0); Mean Platelet Volume 9.5 fL (7.4-10.4); Monocytes # 0.9 10^3/uL (0.2-0.9); Monocytes % 11.5 %; Neutrophils # 4.74 10^3/uL (1.8-7.7); Neutrophils % 62.5 %; Nucleated Red Blood Cells % 0 %; Platelet Count 233 10^3/cmm (130-400); Red Blood Count 4.49 10^6/uL (4.1-5.3); Red Cell Distribution Width 18.1 % (12.1-15.1); White Blood Count 7.6 10^3/uL (4.0-10.0)
[2022-10-22 11:43] LABS: Alanine Aminotransferase 12 U/L (0-41); Albumin Level 3.7 g/dL (3.5-5.2); Alkaline Phosphatase 47 U/L (40-130); Anion Gap 16.7 (5-19); Aspartate Amino Transferase 17 U/L (0-40); Blood Urea Nitrogen 16 mg/dL (8-23); Calcium 8.5 mg/dL (8.5-10.5); Carbon Dioxide 22 mmol/L (22-29); Chloride 104 mmol/L (98-107); Globulin 3.2 g/dL (1.3-4.6); Glucose 137 mg/dL (65-115); Osmolality Calculated 291 mOsm/kg (285-295); Potassium 3.7 mmol/L (3.5-5.1); Sodium 139 mmol/L (136-145); Total Bilirubin 0.4 mg/dL (0.15-1.2); Total Protein 6.9 g/dL (6.6-8.7)
== END 2022-11-12 23:59 | disposition home or self-care (01) ==
PROVIDERS: PCP Nurse Practitioner Family; Visit Provider Internal Medicine Hematology & Oncology
DX: C61 Malignant neoplasm of prostate (principal); C79.51 Secondary malignant neoplasm of bone
CPT/HCPCS: 36591; 80053; 84153; 85025

== ENCOUNTER → 2022-11-29 11:13 | Outpatient (BNVA) | payer MEDICARE, OTHER, SELFPAY | PROVIDERS: PCP Nurse Practitioner Family; Visit Provider Podiatrist Foot & Ankle Surgery | DX: I73.9 Peripheral vascular disease, unspecified (principal); B35.1 Tinea unguium; E11.9 Type 2 diabetes mellitus without complications; B35.3 Tinea pedis; Z79.4 Long term (current) use of insulin | CPT/HCPCS: 11721 ==

== ENCOUNTER 2022-12-03 12:10 | Emergency (ER) | payer MEDICARE, OTHER, SELFPAY ==
[2022-12-03] VITALS (13 sets, daily range): BP systolic 128–147; BP diastolic 57–84; PULSE 76–98; RESP 16–30; TEMP 36.4–39.5; O2SAT 91–97
--- NOTE | 2022-12-03 12:42 | XRR_ITS ---
PROCEDURE INFORMATION: Exam: XR Chest Exam date and time: 12/03/2022 12:57 PM Age: 82 years old Clinical indication: Fever TECHNIQUE: Imaging protocol: Radiologic exam of the chest. Views: 1 view. COMPARISON: CR XR chest 1V portable [id number] 02/24/2021 12:36 PM FINDINGS: Tubes, catheters and devices: Right-sided Port-A-Cath. Lungs: Minimal pulmonary vascular congestion. Bibasilar left greater than right atelectasis versus minimal infiltrate. Pleural spaces: Unremarkable. No pleural effusion. No pneumothorax. Heart/Mediastinum: Cardiomegaly. Bones/joints: Unremarkable. XR/XR chest 1V portable [id number] IMPRESSION: 1. Cardiomegaly. 2. Minimal pulmonary vascular congestion. 3. Bibasilar left greater than right atelectasis versus minimal infiltrate. 4. Right-sided Port-A-Cath.
[2022-12-03 13:33] LABS: Influenza A by IFA negative (Negative); Influenza B by IFA negative (Negative)
[2022-12-03 13:34] LABS: SARS Covid-2 Antigen negative (Negative)
--- NOTE | 2022-12-03 13:35 | W.ED.GENADLT ---
HPI - General Adult General: Chief complaint: General Medical Stated complaint: N/V Fever Time Seen by Provider: 12/03/22 12:41 History of Present Illness: Patient with a history of active prostate cancer on radiotherapy with bilateral nephrostomy tubes, diabetes, multiple episodes of urosepsis presents the emergency department as sent in by his PCP for concern for sepsis. Patient has been having fever, chills, nausea, and vomiting for the last 2 days. Patient states that his symptoms started yesterday, endorses 3 episodes of vomiting yesterday and one today, all food. He denies any chest pain or shortness of breath, denies any abdominal pain. He has bilateral nephrostomy tubes and does not make much if any urine, denies any dysuria or urinary urgency. Per the patient's he was lethargic yesterday however he appears to be back at baseline today. No other modifying factors, no other associated symptoms. Review of Systems General: Reports: 10 or more systems reviewed and unremarkable except in HPI and below PFSH ED PFSH: Medical History Acute kidney injury Chronic cystitis Diabetes mellitus Extrinsic ureteral obstruction High anion gap metabolic acidosis Hydronephrosis of right kidney Male stress incontinence Prostate cancer Pyelonephritis Urinary retention Surgical History History of radical retropubic prostatectomy Hx of transurethral destruction of bladder lesion S/P right knee surgery Status post placement of ureteral stent Left side Family History Mother , in her 70's CAD (coronary artery disease) Father , in his 80's Lung disease Other Diabetes Hypertension Denies family history of Clotting disorder Dementia Psychiatric illness Chronic kidney disease (CKD) Suicide Anesthesia complication Bleeding disorder Cancer Stroke Social History Smoking and tobacco status: former smoker (Smoked a pipe, smoked 40+ years) Alcohol intake: never Substance/Drug Use: never Household members: spouse Marital status: Current occupational status: retired Physical Exam Const: COMMON NORMALS: no acute distress and patient oriented x3 GENERAL APPEARANCE: cooperative, well kempt and ill appearing (Chronically) NUTRITIONAL APPEARANCE: obese centrally obese ORIENTATION/CONSCIOUSNESS: Yes awake HENMT: COMMON NORMALS: normocephalic, atraumatic, hearing grossly normal bilaterally, external ears normal and Normal external nose present HEAD & SCALP: normocephalic and atraumatic FACE & SINUS: normal facial exam NOSE: Normal external nose present EXTERNAL EAR: Yes external ears normal MOUTH: Normal oral and palatal mucosa present THROAT: posterior oropharynx normal Eye: COMMON NORMALS: Equal, round and reactive pupils present and EOMs intact bilaterally PUPIL: Yes Equal, round and reactive pupils present Neck/C-Spine: COMMON NORMALS: supple GENERAL: Yes normal visual inspection CERVICAL SPINE: No Cervical spine tenderness and No step off deformity Chest: COMMONS NORMALS: normal inspection of the chest Resp: COMMON NORMALS: normal respiratory effort, No retractions, No use of accessory muscles and clear to auscultation bilaterally EFFORT & INSPECTION: Yes tachypneic AUSCULTATION: clear to auscultation bilaterally Cardio: COMMON NORMALS: regular rate and Peripheral pulses 2+ throughout RATE: regular rate PERIPHERAL PULSES: Peripheral pulses 2+ throughout GI: COMMON NORMALS: Normal to inspection, nondistended, normoactive bowel sounds present, Soft to palpation and non-tender INSPECTION: Yes Abdominal panniculus present PALPATION: Yes Soft to palpation : COMMON NORMALS: Yes no CVA tenderness BLADDER/KIDNEY EXAM: Yes catheter in place Catheter type (Male): other (Bilateral nephrostomy tubes, CDI) and Yes no CVA tenderness Back/Pelvis: COMMON NORMALS: no CVA tenderness and thoracic and lumbar spine normal to inspection THORACIC SPINE/UPPER BACK: Yes normal to inspection LUMBAR SPINE/LOWER BACK: Yes normal to inspection Extremity: COMMON NORMALS: normal to inspection and full ROM GENERAL: No clubbing and No cyanosis Neuro: COMMON NORMALS: patient oriented x3, moves all extremities, no focal motor deficits and no sensory deficits noted Psych: COMMON NORMALS: mental status grossly normal, Normal thought process present, cooperative and activity/motor behavior normal APPEARANCE: Yes well kempt ATTITUDE: Yes calm THOUGHT PROCESS: Normal thought process present Skin: COMMON NORMALS: no rashes or lesions noted GENERAL SKIN EXAM: no rashes or lesions noted Course ED course: Sepsis criteria met, blood cultures obtained, will start IV fluids, broad-spectrum antibiotics with vancomycin, cefepime, and Flagyl and obtain CT abdomen pelvis without contrast given JEANNETTE. Reevaluation(s): Reevaluation #1: I had an extensive discussion with the patient and his regarding transfer to another facility. He follows with a urologist in [facility] and also follows with oncology at [facility] in [place], they do not want to be transferred to either facility and prefer to go to [place]. The patient was at [facility] last December and would like to go back there, will contact [facility]. Time: 16:23 Consultations: Consultation #1: Spoke with hospitalist Dr. Murphy who request that we wait for imaging to make sure there is no hydronephrosis, she states that if there is hydronephrosis patient will need to go to a facility capable of managing his nephrostomy tubes. Time: 14:59 Consultation #2: Again spoke with hospitalist Dr. Nolasco who reviewed the CT with me, concern of significant worsening of his malignancy, will need to have goals of care discussion with oncology and possible transition to hospice. Given nephrostomy tubes and lack of ability to intervene on them at this facility, patient will require transfer. Time: 16:23 Consultation #3: After extensive delays, finally received notification that the patient has been accepted to [facility] by Dr. Sainz and a bed has been assigned. Time: 21:02 Vital Signs: Vital signs: Vital Signs Temperature 103.1 F H 12/03/22 16:54 Pulse Rate 90 12/03/22 18:00 Respiratory Rate 26 H 12/03/22 18:00 Blood Pressure 139/68 12/03/22 18:00 Pulse Oximetry 97 12/03/22 17:30 Oxygen Delivery Me thod Room Air 12/03/22 12:49 MDM - General Adult Medical Decision Making Concern for sepsis in this patient who has active malignancy and is on radiotherapy that causes leukopenia. Patient is at risk for neutropenic fever, as well as urosepsis given nephrostomy tubes and pathologic lower urinary tract obstruction from his active prostate malignancy. Will obtain full septic work-up including UA samples from bilateral nephrostomy tubes. If lactate is elevated patient will need blood cultures. Low threshold for spiral imaging and IV antibiotics. Anticipate inpatient admission. Lab Data 12/03/22 13:40 12/03/22 13:40 Radiology Impressions Chest X-Ray 12/03/22 12:42 IMPRESSION: 1. Cardiomegaly. 2. Minimal pulmonary vascular congestion. 3. Bibasilar left greater than right atelectasis versus minimal infiltrate. 4. Right-sided Port-A-Cath. Abdomen/Pelvis CT 12/03/22 14:56 IMPRESSION: 1. Persistent wall thickening of the urinary bladder base. 2. Loss of soft tissue planes with the anterior bilateral internal oblique pelvic muscles suggesting tumor involvement. 3. Interval increase in retroperitoneal and pelvic lymphadenopathy. 4. Interval progression of destructive changes of the left pubic symphysis and superior pubic ramus. Interval pathologic fracture of the left inferior pubic ramus. 5. Bilateral well-positioned percutaneous nephrostomies. 6. Left proximal ureteral calculus. 7. Persistent moderately severe right hydronephrosis and moderate abdominal/upper pelvic hydroureter. Clinical assessment of nephrostomy to function recommended. 8. Fatty infiltration of the liver. 9. Chronic inflammatory spondylopathy. 10. Colonic diverticulosis. 11. Minimal bilateral pleural effusions, new. 12. Minimal pericardial effusion, stable. 13. Coronary atherosclerosis. Laboratory Results WBC 15.1 10^3/uL (4.0-10.0) H 12/03/22 13:40 RBC 4.76 10^6/uL (4.1-5.3) 12/03/22 13:40 Hgb 13.2 g/dL (11.7-16.6) 12/03/22 13:40 Hct 41.9 % (42.0-52.0) L 12/03/22 13:40 MCV 88.0 fl (80-94) 12/03/22 13:40 MCH 27.7 pg (28.0-34.0) L 12/03/22 13:40 MCHC 31.5 g/dL (30.0-36.0) 12/03/22 13:40 RDW 17.0 % (12.1-15.1) H 12/03/22 13:40 Plt Count 180 10^3/cmm (130-400) 12/03/22 13:40 MPV 9.3 fL (7.4-10.4) 12/03/22 13:40 Neut % (Auto) 82.9 % 12/03/22 13:40 Lymph % (Auto) 6.0 % 12/03/22 13:40 [place] % (Auto) 9.8 % 12/03/22 13:40 Eos % (Auto) 0.5 % 12/03/22 13:40 Baso % (Auto) 0.4 % 12/03/22 13:40 Neut # (Auto) 12.50 10^3/uL (1.8-7.7) H 12/03/22 13:40 Lymph # (Auto) 0.9 10^3/uL (0.8-4.8) 12/03/22 13:40 [place] # (Auto) 1.5 10^3/uL (0.2-0.9) H 12/03/22 13:40 Eos # (Auto) 0.1 10^3/uL (0.0-0.8) 12/03/22 13:40 Baso # (Auto) 0.1 10^3/uL (0.0-0.1) 12/03/22 13:40 Nucleated RBC % (auto) 0 % 12/03/22 13:40 Nucleated RBCs # 0.0 /100WBC 12/03/22 13:40 Sodium 138 mmol/L (136-145) 12/03/22 13:40 Potassium 3.7 mmol/L (3.5-5.1) 12/03/22 13:40 Chloride 101 mmol/L (98-107) 12/03/22 13:40 Carbon Dioxide 22 mmol/L (22-29) 12/03/22 13:40 Anion Gap 18.7 (5-19) 12/03/22 13:40 BUN 22 mg/dL (8-23) 12/03/22 13:40 Creatinine 1.3 mg/dL (0.7-1.2) H 12/03/22 13:40 GFR Calculation Not Reportable 12/03/22 13:40 Glucose 146 mg/dL (65-115) H 12/03/22 13:40 Calculated Osmolality 292 mOsm/kg (285-295) 12/03/22 13:40 Lactate 2.6 mmol/L (0.5-2.2) H 12/03/22 13:40 Calcium 8.7 mg/dL (8.5-10.5) 12/03/22 13:40 Total Bilirubin 0.8 mg/dL (0.15-1.2) 12/03/22 13:40 AST 23 U/L (0-40) 12/03/22 13:40 ALT 18 U/L (0-41) 12/03/22 13:40 Alkaline Phosphatase 61 U/L (40-130) 12/03/22 13:40 Troponin T Baseline 35 ng/L (0-15) H 12/03/22 13:40 Troponin T 120 Minute 30.51 ng/L (0-15) H 12/03/22 15:39 Delta Troponin T -4.49 ABS# (0-10) L 12/03/22 15:39 NT-Pro-B Natriuret Pep 398 pg/mL (0-450) 12/03/22 13:40 Total Protein 7.8 g/dL (6.6-8.7) 12/03/22 13:40 Albumin 4.1 g/dL (3.5-5.2) 12/03/22 13:40 Globulin 3.7 g/dL (1.3-4.6) 12/03/22 13:40 Lipase 17 U/L (13-60) 12/03/22 13:40 Urine Color Yellow (Yellow) 12/03/22 13:28 Urine Appearance Cloudy (CLEAR) 12/03/22 13:28 Urine pH 6.5 (5-7) 12/03/22 13:28 Ur Specific [place] 1.010 (1.005-1.030) 12/03/22 13:28 Urine Protein 3+ (Negative) H 12/03/22 13:28 Urine Glucose (UA) Norm (Normal) 12/03/22 13:28 Urine Ketones Negative (Negative) 12/03/22 13:28 Urine Blood 3+ (Negative) H 12/03/22 13:28 Urine Nitrate Positive (Negative) H 12/03/22 13:28 Urine Bilirubin Neg (Negative) 12/03/22 13:28 Urine Urobilinogen Neg mg/dL (Negative) 12/03/22 13:28 Ur Leukocyte Esterase 2+ (Negative) H 12/03/22 13:28 Ur Microscopic Indic Cancelled 12/03/22 13:23 Urine RBC 10-15 /hpf (0-2) H 12/03/22 13:28 Urine WBC 25-40 /hpf (0-5) H 12/03/22 13:28 Ur Squamous Epith Cells 0-4 /hpf (0-5) H 12/03/22 13:28 Amorphous Sediment 1+ /hpf 12/03/22 13:28 Urine Bacteria 3+ /hpf (NONE) H 12/03/22 13:28 Hyaline Casts 0-4 /lpf H 12/03/22 13:23 Urine Mucus 1+ /hpf 12/03/22 13:28 Influenza Type A Ag negative (Negative) 12/03/22 13:06 Influenza Type B Ag negative (Negative) 12/03/22 13:06 SARS-CoV-2 Ag (Rapid) negative (Negative) 12/03/22 13:06 Critical Care Time Critical Care Time: Critical Care Time: Yes Total Critical Care Time: 48 Attestation: This case had a high probability of a clinically significant, sudden, or life threatening deterioration of this patient's condition which required my full and direct attention, intervention and personal management. Discharge Plan Discharge Patient Disposition: Xfer Short-Term Hosp Clinical Impression: Sepsis, Prostate cancer metastatic to multiple sites, Recurrent UTI Condition: Stable Prescriptions: No Action metformin 500 mg tablet 500 mg PO BID Caroline-Citra Heartburn 1,940-1,000 mg tablet, effervescent 1 tab PO DAILY PRN (Reason: Acid Reflux) Rx Instructions: dissolved in 4 ounces of water (DME) Seated Walker See Rx Instructions .Route .MEDSUPPLY Qty: 1 0RF Rx Instructions: As directed levocetirizine [24HR Allergy Relief] 5 mg tablet 5 mg PO DAILY (DME) diabetic shoes with 3 custom inserts See Rx Instructions .Route .MEDSUPPLY Qty: 1 0RF Rx Instructions: As directed clotrimazole-betamethasone 1-0.05 % cream 1 applic topical BID 28 Days Qty: 45 0RF oxycodone-acetaminophen 5-325 mg tablet See Rx Instructions PO .Q4-6h PRN (Reason: pain) 30 Days Qty: 120 0RF Rx Instructions: 1-2 tablets orally Q4-6H PRN; Compazine 10 mg tablet 10 mg PO Q4H PRN (Reason: Mild Nausea) Qty: 30 3RF famotidine 20 mg Tablet 20 mg PO DAILY Referrals: Jayda Malik NP [Primary Care Provider] - Coding Level of Care Code ED Election Watcher for Cristy Baxter
[2022-12-03 13:53] LABS: Basophils # 0.1 10^3/uL (0.0-0.1); Basophils % 0.4 %; Eosinophils # 0.1 10^3/uL (0.0-0.8); Eosinophils % 0.5 %; Hematocrit 41.9 % (42.0-52.0); Hemoglobin 13.2 g/dL (11.7-16.6); Lymphocytes # 0.9 10^3/uL (0.8-4.8); Mean Corpuscular HGB Conc 31.5 g/dL (30.0-36.0); Mean Corpuscular Hemoglobin 27.7 pg (28.0-34.0); Mean Platelet Volume 9.3 fL (7.4-10.4); Monocytes # 1.5 10^3/uL (0.2-0.9); Monocytes % 9.8 %; Neutrophils % 82.9 %; Nucleated Red Blood Cells % 0 %; Platelet Count 180 10^3/cmm (130-400); Red Blood Count 4.76 10^6/uL (4.1-5.3); White Blood Count 15.1 10^3/uL (4.0-10.0)
--- NOTE | 2022-12-03 13:57 | ECG_ITS ---
[facility] Test Date: 2022-12-03 Pat Name: Alex Kauffman Department: Room: Gender: Male Data Systems Analyst: : 1940 Requested By: Geo Mendez Order Number: [id number] Reji MD: Ludmila Cerda M.D. Measurements Intervals [place] Rate: 96 P: 94 [place]: 168 QRS: -78 QRSD: 90 T: 74 QT: 327 QTc: 414 Interpretive Statements SINUS RHYTHM WITH OCCASIONAL SUPRAVENTRICULAR PREMATURE COMPLEXES LEFT ANTERIOR FASCICULAR BLOCK [QRS AXIS <= -45, QR IN I, RS IN II] POSSIBLE ANTERIOR MYOCARDIAL INFARCTION , PROBABLY OLD [30 ms Q WAVE IN V3/V4, OR R < 0.2 mV IN V4] Compared to ECG 01/30/2021 14:41:44 Atrial fibrillation no longer present Myocardial infarct finding still present Electronically Signed On 12-03-2022 22:07:53 CDT by Ludmila Cerda M.D. [id number]
[2022-12-03 14:13] LABS: Troponin(5th) Baseline 35 ng/L (0-15)
[2022-12-03 14:16] LABS: Lactate (Lactic Acid level) 2.6 mmol/L (0.5-2.2)
[2022-12-03 14:21] LABS: Alanine Aminotransferase 18 U/L (0-41); Albumin Level 4.1 g/dL (3.5-5.2); Alkaline Phosphatase 61 U/L (40-130); Anion Gap 18.7 (5-19); Aspartate Amino Transferase 23 U/L (0-40); Blood Urea Nitrogen 22 mg/dL (8-23); Calcium 8.7 mg/dL (8.5-10.5); Carbon Dioxide 22 mmol/L (22-29); Chloride 101 mmol/L (98-107); Globulin 3.7 g/dL (1.3-4.6); Glucose 146 mg/dL (65-115); Lipase 17 U/L (13-60); NT Pro B Type Natriuretic Pept 398 pg/mL (0-450); Osmolality Calculated 292 mOsm/kg (285-295); Potassium 3.7 mmol/L (3.5-5.1); Sodium 138 mmol/L (136-145); Total Bilirubin 0.8 mg/dL (0.15-1.2); Total Protein 7.8 g/dL (6.6-8.7)
[2022-12-03 14:44] LABS: Bilirubin Urine Neg (Negative); Blood Urine 3+ (Negative); Glucose Urine UA Norm (Normal); Ketones Urine Negative (Negative); Leukocyte Esterase Urine 2+ (Negative); Nitrate Urine Positive (Negative); Protein Urine 3+ (Negative); Urine Appearance Cloudy (CLEAR); Urine Color Yellow (Yellow); Urobilinogen Urine Neg (Negative); pH Urine 6.5 (5-7)
[2022-12-03 14:45] LABS: Add Urine Culture? Yes; Add Urine Microscopic? YES; Amorphous Sediment Urine 1+ /hpf; Bacteria Urine 3+ /hpf; Mucus Urine 1+ /hpf; Squamous Epithelial Cell Urine 0-4 /hpf (0-5); WBC Urine 25-40 /hpf (0-5)
--- NOTE | 2022-12-03 14:56 | CTR_ITS ---
PROCEDURE INFORMATION: Exam: CT Abdomen And Pelvis Without Contrast Exam date and time: 12/03/2022 3:16 PM Age: 82 years old Clinical indication: Condition or disease; Other: Sepsis; Nausea and vomiting; Prior surgery; Surgery type: Sidney renal drains TECHNIQUE: Imaging protocol: Computed tomography of the abdomen and pelvis without contrast. Radiation optimization: All CT scans at this facility use at least one of these dose optimization techniques: automated exposure control; mA and/or kV adjustment per patient size (includes targeted exams where dose is matched to clinical indication); or iterative reconstruction. REPORTING DATA: Count of CT and Cardiac NM exams in prior 12 months: This patient has received 0 known CTs and 0 known cardiac nuclear medicine studies in the 12 months prior to the current study. COMPARISON: CT abdomen pelvis wo con [id number] 02/24/2021 9:59 AM RADIATION DOSE METRICS: Total DLP (mGy-cm): 1097.86 FINDINGS: Tubes, catheters and devices: Bilateral well-positioned percutaneous nephrostomies. Lungs: Bilateral posterior pulmonary partial passive atelectasis. Pleural spaces: Minimal bilateral pleural effusions, new. Heart: Minimal pericardial effusion, stable. Mitral annular calcification is present. Coronary arteries: LAD, LCx and RCA calcified coronary atherosclerosis. Liver: Moderate diffuse hypoattenuation of the liver is present consistent with hepatic steatosis. No masses. Gallbladder and bile ducts: The gallbladder is partially contracted. No extrahepatic biliary ductal dilatation or calculus. Pancreas: Severe pancreatic atrophy. Spleen: Normal. No splenomegaly. Adrenal glands: Normal. No mass. Kidneys and ureters: No left hydronephrosis. Left proximal ureteral 4.1 x 2.8 mm calculus. Persistent moderately severe right hydronephrosis and moderate abdominal/upper pelvic hydroureter. Stomach and bowel: Sigmoid colonic diverticula without evidence of diverticulitis. No obstruction. No mucosal thickening. Appendix: No evidence of appendicitis. Intraperitoneal space: No free air. No significant fluid collection. Vasculature: Unremarkable. No abdominal aortic aneurysm. Lymph nodes: Interval marked increase in left para-aortic, and paracaval retroperitoneal lymphadenopathy, largest node measuring 4.5 cm short axis, previously 1.9 cm. Left external iliac lymph node measuring 2.2 cm short axis, previously inconspicuous. Right common iliac lymph node measuring 11.9 mm short axis, previously inconspicuous. Right internal iliac lymph node measuring 2.4 cm short axis, previously 10 mm. Urinary bladder: Persistent wall thickening of the urinary bladder base. Reproductive: Loss of soft tissue planes with the anterior bilateral internal oblique pelvic muscles suggesting tumor involvement. Bones/joints: L5-S1 spondylosis with bilateral neural foraminal stenosis. Lumbar spine vertebral body marginal osteophytes are noted at multiple levels. Interval progression of destructive changes of the left pubic symphysis and superior pubic ramus. Interval pathologic fracture of the left inferior pubic ramus. Lower thoracic spine bridging syndesmophytes suggesting chronic inflammatory spondylopathy. Soft tissues: Unremarkable. CT/CT abdomen pelvis wo con [id number] IMPRESSION: 1. Persistent wall thickening of the urinary bladder base. 2. Loss of soft tissue planes with the anterior bilateral internal oblique pelvic muscles suggesting tumor involvement. 3. Interval increase in retroperitoneal and pelvic lymphadenopathy. 4. Interval progression of destructive changes of the left pubic symphysis and superior pubic ramus. Interval pathologic fracture of the left inferior pubic ramus. 5. Bilateral well-positioned percutaneous nephrostomies. 6. Left proximal ureteral calculus. 7. Persistent moderately severe right hydronephrosis and moderate abdominal/upper pelvic hydroureter. Clinical assessment of nephrostomy to function recommended. 8. Fatty infiltration of the liver. 9. Chronic inflammatory spondylopathy. 10. Colonic diverticulosis. 11. Minimal bilateral pleural effusions, new. 12. Minimal pericardial effusion, stable. 13. Coronary atherosclerosis.
[2022-12-03 14:58] LABS: Urine Color Yellow (Yellow)
[2022-12-03 14:59] LABS: Bilirubin Urine Neg (Negative); Blood Urine 3+ (Negative); Glucose Urine UA Norm (Normal); Ketones Urine Negative (Negative); Leukocyte Esterase Urine 2+ (Negative); Nitrate Urine Negative (Negative); Protein Urine 3+ (Negative); Urine Appearance Cloudy (CLEAR); Urobilinogen Urine Neg (Negative); pH Urine 5 (5-7)
[2022-12-03 15:02] LABS: Bacteria Urine 3+ /hpf; Mucus Urine TRACE /hpf; RBC Urine 40-50 /hpf (0-2); Squamous Epithelial Cell Urine 0-4 /hpf (0-5); WBC Urine >100 /hpf (0-5)
[2022-12-03 15:03] LABS: Add Urine Culture? Yes; Hyaline Casts Urine 0-4 /lpf
[2022-12-03] MEDS: cefepime 2,000 MG in sodium chloride 0.9% (plus) 50 ML 100 MG IV (15:48)
[2022-12-03 16:12] LABS: Troponin 5 2HR 30.51 ng/L (0-15)
[2022-12-03 16:13] LABS: Troponin 5 2HR Delta -4.49 ABS# (0-10)
[2022-12-03] MEDS: vancomycin 2,000 MG/400 ML PIGGYBACK 200 MG IV (16:55)
[2022-12-03] MEDS: acetaminophen 1,000 MG/100 ML PIGGYBACK 400 MG IV (18:00)
[2022-12-03] MEDS: metroNIDAZOLE IV 500 MG/100 ML PREMIX 100 MG IV (18:00)
--- NOTE | 2022-12-03 18:41 | PC.NURSE ---
PER DR. TREVINO - PT IS OKAY TO EAT. PT GIVEN GRILLED CHEESE SANDWICH AND DIET DR. DWYER. FAMILY AT BEDSIDE.
--- NOTE | 2022-12-03 21:30 | PC.NURSE ---
REPORT GIVEN TO [facility].
== END 2022-12-03 22:58 | disposition short-term general hospital (02) ==
PROVIDERS: Emergency Provider Emergency Medicine; PCP Nurse Practitioner Family
DX: A41.9 Sepsis, unspecified organism (principal); N39.0 Urinary tract infection, site not specified; C61 Malignant neoplasm of prostate; C79.9 Secondary malignant neoplasm of unspecified site; Z79.84 Long term (current) use of oral hypoglycemic drugs; Z20.822 Contact with and (suspected) exposure to COVID-19; E11.9 Type 2 diabetes mellitus without complications; Z87.891 Personal history of nicotine dependence; Z87.440 Personal history of urinary (tract) infections; Z92.3 Personal history of irradiation; Z93.6 Other artificial openings of urinary tract status
CPT/HCPCS: 36415; 71045; 74176; 80053; 81001; 83605; 83690; 83880; 84484; 85025; 87040; 87077; 87086; 87186; 87426; 87804; 93005; 96365; 96366; 96367; 99291; J0131; J0692; J3372; J3490; J7120

== ENCOUNTER 2022-12-17 09:57 | Oncology outpatient (recurring) (ONCR) | payer MEDICARE, OTHER, SELFPAY ==
[2022-12-17 11:05] VITALS: BP 112/73; PULSE 80; RESP 18; TEMP 35.9; O2SAT 96
[2022-12-17 11:09] LABS: Basophils # 0.1 10^3/uL (0.0-0.1); Basophils % 0.7 %; Eosinophils # 0.4 10^3/uL (0.0-0.8); Hemoglobin 12.9 g/dL (11.7-16.6); Lymphocytes # 1.6 10^3/uL (0.8-4.8); Lymphocytes % 18.9 %; Mean Corpuscular HGB Conc 31.5 g/dL (30.0-36.0); Mean Corpuscular Hemoglobin 27.3 pg (28.0-34.0); Mean Corpuscular Volume 86.7 fl (80-94); Mean Platelet Volume 9.6 fL (7.4-10.4); Monocytes # 0.8 10^3/uL (0.2-0.9); Monocytes % 9.1 %; Neutrophils # 5.63 10^3/uL (1.8-7.7); Neutrophils % 65.9 %; Nucleated Red Blood Cells % 0 %; Platelet Count 239 10^3/cmm (130-400); Red Blood Count 4.73 10^6/uL (4.1-5.3); Red Cell Distribution Width 16.3 % (12.1-15.1); White Blood Count 8.6 10^3/uL (4.0-10.0)
[2022-12-17 11:38] LABS: Alanine Aminotransferase 14 U/L (0-41); Albumin Level 4.1 g/dL (3.5-5.2); Alkaline Phosphatase 71 U/L (40-130); Anion Gap 18.1 (5-19); Aspartate Amino Transferase 20 U/L (0-40); Blood Urea Nitrogen 23 mg/dL (8-23); Calcium 9.2 mg/dL (8.5-10.5); Carbon Dioxide 23 mmol/L (22-29); Chloride 102 mmol/L (98-107); Globulin 3.6 g/dL (1.3-4.6); Glucose 124 mg/dL (65-115); Osmolality Calculated 293 mOsm/kg (285-295); Potassium 4.1 mmol/L (3.5-5.1); Sodium 139 mmol/L (136-145); Total Bilirubin 0.5 mg/dL (0.15-1.2); Total Protein 7.7 g/dL (6.6-8.7)
== END 2023-01-12 23:59 | disposition home or self-care (01) ==
LOC: ONCMED 09:58
PROVIDERS: Radiology Radiation Oncology; PCP Nurse Practitioner Family; Visit Provider Internal Medicine Hematology & Oncology
DX: Z45.2 Encounter for adjustment and management of vascular access device (principal); C61 Malignant neoplasm of prostate
CPT/HCPCS: 80053; 84153; 85025; J1642

== ENCOUNTER 2023-01-21 09:56 | Oncology outpatient (recurring) (ONCR) | payer MEDICARE, OTHER, SELFPAY ==
[2023-01-21 11:48] LABS: Basophils # 0.1 10^3/uL (0.0-0.1); Basophils % 0.6 %; Eosinophils # 0.3 10^3/uL (0.0-0.8); Hematocrit 38.2 % (42.0-52.0); Hemoglobin 11.9 g/dL (11.7-16.6); Lymphocytes # 1.1 10^3/uL (0.8-4.8); Lymphocytes % 11.5 %; Mean Corpuscular HGB Conc 31.2 g/dL (30.0-36.0); Mean Corpuscular Hemoglobin 26.6 pg (28.0-34.0); Mean Corpuscular Volume 85.3 fl (80-94); Mean Platelet Volume 9.1 fL (7.4-10.4); Monocytes # 0.8 10^3/uL (0.2-0.9); Monocytes % 8.1 %; Neutrophils # 7.21 10^3/uL (1.8-7.7); Neutrophils % 75.5 %; Nucleated Red Blood Cells % 0 %; Platelet Count 177 10^3/cmm (130-400); Red Blood Count 4.48 10^6/uL (4.1-5.3); Red Cell Distribution Width 16.4 % (12.1-15.1); White Blood Count 9.6 10^3/uL (4.0-10.0)
[2023-01-21 12:33] LABS: Alanine Aminotransferase 10 U/L (0-41); Albumin Level 3.9 g/dL (3.5-5.2); Alkaline Phosphatase 66 U/L (40-130); Anion Gap 18.9 (5-19); Aspartate Amino Transferase 23 U/L (0-40); Blood Urea Nitrogen 29 mg/dL (8-23); Calcium 9.3 mg/dL (8.5-10.5); Carbon Dioxide 23 mmol/L (22-29); Chloride 102 mmol/L (98-107); Globulin 3.7 g/dL (1.3-4.6); Glucose 120 mg/dL (65-115); Osmolality Calculated 297 mOsm/kg (285-295); Potassium 3.9 mmol/L (3.5-5.1); Sodium 140 mmol/L (136-145); Total Bilirubin 0.2 mg/dL (0.15-1.2); Total Protein 7.6 g/dL (6.6-8.7)
== END 2023-02-11 23:59 | disposition home or self-care (01) ==
LOC: ONCMED 09:56
PROVIDERS: Radiology Radiation Oncology; PCP Nurse Practitioner Family; Visit Provider Internal Medicine Hematology & Oncology
DX: C61 Malignant neoplasm of prostate (principal)
CPT/HCPCS: 36591; 80053; 84153; 85025; J1642